=== PATIENT | female | born 1950 | race Caucasian/White ===

== ENCOUNTER 2017-11-08 07:42 | Emergency (ER) | payer OTHER ==
--- OUTSIDE RECORDS SUMMARY | 2017-11-08 07:44 | XMS REPORT | Clinical Summary ---
:1950 Author Organization [facility] Address [address] [place] [address] Phone Support Name Relationship Address Phone Unavailable Unavailable [address] [facility] [place] [address] Unavailable Unavailable [address] [phone] [place], [facility] Team Providers Name Role Phone Unavailable Primary Care Provider Unavailable Allergies No Known Allergies Current Medications Prescription Sig. Disp. Refills Start Date End Date Status metoprolol (LOPRESSOR) Take 100 mg by Active 100 MG tablet mouth 2 (two) times daily. omeprazole (PRILOSEC) 20 Take 20 mg by mouth Active MG capsule daily. ALPRAZolam (XANAX) 0.25 Take 0.25 mg by Active MG tablet mouth 3 (three) times daily as needed for Anxiety. 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
[2017-11-08] MEDS ORDERED: KETOROLAC 30 MG/ML INJ ONE (08:12)
[2017-11-08 08:27] LABS: Absolute Lymphocytes (CBC) 4.1 K/uL (0.7-4.9); Absolute Monocytes 0.9 K/uL (0.1-1.3); Absolute Neutrophil 5.7 K/uL (1.8-8.0); Basophils % 0.2 % (0-1.3); Eosinophils % 1.5 % (0-4.4); Hematocrit 34.9 % (36.0-45.0); Lymphocytes % 37.8 % (15.3-44.8); MCH 26.4 pg (27.0-35.0); MPV 7.6 fL (7.6-11.3); Monocytes % 8.1 % (3.3-12.3); RBC Red Blood Cell Count 4.42 M/uL (3.86-4.86)
[2017-11-08 08:38] LABS: Bicarbonate 28 mEq/L (21-31); Glucose Level 105 mg/dL (65-120); Potassium 3.7 mEq/L (3.6-5.0); Sodium Level 140 mEq/L (135-145)
[2017-11-08 08:44] LABS: ALT/SGPT 10 IU/L (10-60); AST/SGOT 17 IU/L (10-42); Albumin 3.4 g/dL (3.2-5.5); Alkaline Phosphatase 85 IU/L (42-121); BUN Blood Urea Nitrogen 25 mg/dL (6-20); Bilirubin Direct < 0.1 mg/dL (0-0.2); Bilirubin Total 0.2 mg/dL (0.3-1.2); Lipase 29 U/L (22-51); Protein, Total 6.7 g/dL (6.0-8.3)
--- NOTE | 2017-11-08 08:50 | RAD REPORT ---
EXAM DESCRIPTION: CT - Abdomen Pelvis Wo Contrast - 11/08/2017 8:24 am CLINICAL HISTORY: Abdominal pain. Left flank pain. COMPARISON: 11/02/2017 TECHNIQUE: CT imaging of the abdomen and pelvis was performed without contrast. Solid organ, bowel a nd vascular assessment is limited due to lack of IV and oral contrast. All CT scans are performed using dose optimization technique as appropriate and may include automated exposure control or mA/KV adjustment according to patient size. FINDINGS: The lower lung yao are clear.Cholecystectomy clips. The liver, spleen, pancreas, adrenal glands are within normal limits for a limited non-contrast exami nation.Bilateral nephrolithiasis is present. No hydronephrosis. No bowel obstruction, free air, free fluid or abscess. Sigmoid diverticulosis coli is present without diverticulitis. The appendix is not identified as a discrete structure, however, no secondary findin gs of appendicitis are identified. The osseous structures are within normal limits. IMPRESSION: Bilateral nephrolithiasis without hydronephrosis. Sigmoid diverticulosis coli without diverticulitis. A limited non-contrast examination was performed as detailed.
[2017-11-08 10:43] LABS: Urine Blood NEGATIVE (NEG); Urine Glucose NEGATIVE (NEG); Urine Protein NEGATIVE (NEG); Urine Specific Gravity 1.025 (1.005-1.030); Urine pH 5.5 (5.0-7.0)
[2017-11-08 10:59] LABS: Urine Bacteria <20 /HPF (<20); Urine Culture Reflex Order NOT NEEDED; Urine Mucus 1+ /HPF (NONE SEEN); Urine RBC <5 /HPF (NONE SEEN)
--- NOTE | 2017-11-08 11:09 | ER ---
Nurse's Notes [facility] Name: Lilian Garland Age: 67 yrs Sex: Female : 1950 Arrival Date: 11/08/2017 Time: 07:54 Bed 7 Private MD: Diagnosis: Left Flank Pain Presentation: 11/08 07:55 Presenting complaint: Patient states: history of kidney stones. Pt reports L flank pain ss x 3 days, that has gotten worse this morning. Pt reports that symptoms are similar to last kidney stone. Transition of care: patient was not received from another setting of care. Onset of symptoms was November 05, 2017. Care prior to arrival: None. Medication(s) given: zofran 4 mg, Fentanyl 100 mcg IV initiated. 20 GA, in the right antecubital area. 07:55 Method Of Arrival: EMS: [facility] ss 07:55 Acuity: JI 3 ss Historical: - Allergies: 07:57 No Known Allergies; ss - PMHx: 07:57 Anxiety; Depression; Hypertension; neuropathy; ss - PSHx: 07:57 Cholecystectomy; heel spur R; ss - Immunization history:: Adult Immunizations up to date. - Social history:: Smoking status: Patient/guardian denies using tobacco. - Family history:: not pertinent. - Hospitalizations: : No recent hospitalization is reported. Screenin:00 Abuse screen: Denies threats or abuse. Denies injuries from another. Nutritional hb screening: No deficits noted. Tuberculosis screening: No symptoms or risk factors identified. Fall Risk None identified. Assessment: 08:00 General: Appears in no apparent distress. uncomfortable, Behavior is calm, cooperative. hb Pain: Pain currently is 8 out of 10 on a pain scale. Neuro: Level of Consciousness is awake, alert, obeys commands, Oriented to person, place, time, situation. Cardiovascular: Capillary refill < 3 seconds Patient's skin is warm and dry. Respiratory: Airway is patent Trachea midline Respiratory effort is even, unlabored, Respiratory pattern is regular, symmetrical, Breath sounds are clear bilaterally. GI: No signs and/or symptoms were reported involving the gastrointestinal system. : Reports pain in left flank(s). EENT: No signs and/or symptoms were reported regarding the EENT system. Derm: No signs and/or symptoms reported regarding the dermatologic system. Skin is intact, is healthy with good turgor, Skin is pink, warm \T\ dry. Musculoskeletal: No signs and/or symptoms reported regarding the musculoskeletal system. 09:00 Reassessment: Patient appears in no apparent distress at this time. Patient and/or hb family updated on plan of care and expected duration. Pain level reassessed. Patient is alert, oriented x 3, equal unlabored respirations, skin warm/dry/pink. 10:00 Reassessment: Patient appears in no apparent distress at this time. No changes from previously documented assessment. Patient and/or family updated on plan of care and expected duration. Pain level reassessed. Patient is alert, oriented x 3, equal unlabored respirations, skin warm/dry/pink. 10:22 Reassessment: pt ambulated to bathroom with steady gait. Urine specimen provided. hb Assisted back to bed, call light within reach. 11:15 Reassessment: Patient appears in no apparent distress at this time. Patient and/or hb family updated on plan of care and expected duration. Pain level reassessed. Patient is alert, oriented x 3, equal unlabored respirations, skin warm/dry/pink. Vital Signs: 07:57 BP 149 / 79; Pulse 85; Resp 15; Temp 98.3(O); Pulse Ox 97% on R/A; Height 5 ft. 3 in. ss (160.02 cm); Pain 8/10; 08:33 BP 127 / 67; Pulse 90; Resp 18; Pulse Ox 97% ; sv 09:33 BP 117 / 76; Pulse 82; Resp 15; Pulse Ox 100% ; hb 10:30 BP 122 / 74; Pulse 78; Resp 16; Pulse Ox 100% on R/A; hb ED Course: 07:54 Patient arrived in ED. ss 07:55 Tomas Schuster MD is Attending Physician. wa 07:56 Triage completed. ss 07:57 Arm band placed on right wrist. ss 08:00 Patient has correct armband on for positive identification. Placed in gown. Bed in low hb position. Call light in reach. Side rails up X 1. 08:00 Maintain EMS IV. Dressing intact. Good blood return noted. Site clean \T\ dry. Gauge \T\ hb site: 20G RIGHT AC. 08:15 Kathleen Thompson RN is Primary Nurse. hb 08:24 CT Abd/Pelvis - Without Cont In Process Unspecified. EDMS 09:55 EKG done, by sterilisation technician. reviewed by Tomas Schuster MD. tc 10:51 Urine Dipstick--Ancillary (enter results) Sent. sv 11:23 No provider procedures requiring assistance completed. IV discontinued, intact, hb bleeding controlled, No redness/swelling at site. Pressure dressing applied. Administered Medications: 08:13 Drug: TORadol 30 mg Route: IVP; Site: right antecubital; hb 09:00 Follow up: Response: No adverse reaction; Pain is decreased hb Outcome: 11:09 Discharge ordered by . wa 11:23 Discharged to home ambulatory, with family. hb 11:23 Condition: stable 11:23 Discharge instructions given to patient, Instructed on discharge instructions, follow up and referral plans. medication usage, Demonstrated understanding of instructions, follow-up care, medications, Prescriptions given X 1. 11:25 Patient left the ED. Signatures: Dispatcher [employer] EDNJ Helena Sahu RN Gabriela Cagle RN RN Abida Chadwick, director public policy EKG Ttc Kathleen Thompson RN RN hb Appiah, William, MD MD wa
--- NOTE | 2017-11-08 11:09 | EDPHYS ---
Physician Documentation [facility] Name: Lilian Garland Age: 67 yrs Sex: Female : 1950 Arrival Date: 11/08/2017 Time: 07:54 Bed 7 Private MD: ED Physician Tomas Schuster HPI: 11/08 08:17 This 67 yrs old Female presents to ER via EMS with complaints of Flank Pain. wa 08:17 The patient complains of pain in the left flank. The pain does not radiate. Onset: The wa symptoms/episode began/occurred 3 day(s) ago, and became worse this morning. Modifying factors: The symptoms are alleviated by nothing. the symptoms are aggravated by movement, palpation/percussion. Associated signs and symptoms: Pertinent positives: nausea, Pertinent negatives: dizziness, dysuria, fever, vomiting. Severity of pain: At its worst the pain was severe in the emergency department the pain has improved markedly. The patient has experienced similar episodes in the past, several times. The patient has not recently seen a physician. given pain meds via IV by EMS in route to ED. Historical: - Allergies: 07:57 No Known Allergies; ss - PMHx: 07:57 Anxiety; Depression; Hypertension; neuropathy; ss - PSHx: 07:57 Cholecystectomy; heel spur R; ss - Immunization history:: Adult Immunizations up to date. - Social history:: Smoking status: Patient/guardian denies using tobacco. - Family history:: not pertinent. - Hospitalizations: : No recent hospitalization is reported. ROS: 08:19 Constitutional: Negative for fever, chills, and weight loss, Eyes: Negative for injury, wa pain, redness, and discharge, ENT: Negative for injury, pain, and discharge, Neck: Negative for injury, pain, and swelling, Cardiovascular: Negative for chest pain, palpitations, and edema, Respiratory: Negative for shortness of breath, cough, wheezing, and pleuritic chest pain, Back: Negative for injury and pain, : Negative for injury, bleeding, discharge, and swelling, MS/Extremity: Negative for injury and deformity, Skin: Negative for injury, rash, and discoloration, Neuro: Negative for headache, weakness, numbness, tingling, and seizure. 08:19 Abdomen/GI: Positive for nausea, of the left flank, Negative for vomiting, diarrhea, constipation. 08:19 All other systems are negative. Exam: 08:19 Constitutional: This is a well developed, well nourished patient who is awake, alert, wa and in no acute distress. Head/Face: Normocephalic, atraumatic. Eyes: Pupils equal round and reactive to light, extra-ocular motions intact. Lids and lashes normal. Conjunctiva and sclera are non-icteric and not injected. Cornea within normal limits. Periorbital areas with no swelling, redness, or edema. ENT: Nares patent. No nasal discharge, no septal abnormalities noted. Tympanic membranes are normal and external auditory canals are clear. Oropharynx with no redness, swelling, or masses, exudates, or evidence of obstruction, uvula midline. Mucous membranes moist. Neck: Trachea midline, no thyromegaly or masses palpated, and no cervical lymphadenopathy. Supple, full range of motion without nuchal rigidity, or vertebral point tenderness. No Meningismus. Chest/axilla: Normal chest wall appearance and motion. Nontender with no deformity. No lesions are appreciated. Cardiovascular: Regular rate and rhythm with a normal S1 and S2. No gallops, murmurs, or rubs. Normal PMI, no JVD. No pulse deficits. Respiratory: Lungs have equal breath sounds bilaterally, clear to auscultation and percussion. No rales, rhonchi or wheezes noted. No increased work of breathing, no retractions or nasal flaring. Back: No spinal tenderness. No costovertebral tenderness. Full range of motion. Skin: Warm, dry with normal turgor. Normal color with no rashes, no lesions, and no evidence of cellulitis. MS/ Extremity: Pulses equal, no cyanosis. Neurovascular intact. Full, normal range of motion. Neuro: Awake and alert, GCS 15, oriented to person, place, time, and situation. Cranial nerves II-XII grossly intact. Motor strength 5/5 in all extremities. Sensory grossly intact. Cerebellar exam normal. Normal gait. Psych: Awake, alert, with orientation to person, place and time. Behavior, mood, and affect are within normal limits. 08:19 Abdomen/GI: Inspection: abdomen appears normal, Bowel sounds: normal, Palpation: mild abdominal tenderness, in the left flank. Vital Signs: 07:57 BP 149 / 79; Pulse 85; Resp 15; Temp 98.3(O); Pulse Ox 97% on R/A; Height 5 ft. 3 in. ss (160.02 cm); Pain 8/10; 08:33 BP 127 / 67; Pulse 90; Resp 18; Pulse Ox 97% ; sv 09:33 BP 117 / 76; Pulse 82; Resp 15; Pulse Ox 100% ; hb 10:30 BP 122 / 74; Pulse 78; Resp 16; Pulse Ox 100% on R/A; hb MDM: 07:56 Patient medically screened. 08:20 Differential diagnosis: nephrolithiasis, pyelonephritis, UTI, diverticulitis, ruptured wa AAA. 11:02 Data reviewed: vital signs, nurses notes, lab test result(s), radiologic studies. Test pa interpretation: by ED physician or midlevel provider: labs noted for renal insufficiency. UA negative. CT abd/pelvis: nephrolithiasis. no hydro or stones in ureter. Response to treatment: the patient's symptoms have markedly improved after treatment. ED course: pain improved. pt has enough tramadol at home. will d/c with zofran. has appt with her urologist pending in 2 days. advised to f/u. 11:14 Test interpretation: by ED physician or midlevel provider: EKG: HR 82. LAD. incomplete wa interventricular delay. 11/08 08:04 Order name: Basic Metabolic Panel; Complete Time: 10:00 11/08 08:04 Order name: CBC with Diff; Complete Time: 10:11/08 08:04 Order name: Creatinine for Radiology; Complete Time: 10:11/08 08:04 Order name: Hepatic Function; Complete Time: 10:11/08 08:04 Order name: Lipase; Complete Time: 10:11/08 08:04 Order name: Urine Microscopic Only 11/08 08:04 Order name: IV Saline Lock; Complete Time: 08:05 11/08 08:04 Order name: Labs collected and sent; Complete Time: 08:20 11/08 08:04 Order name: Urine Dipstick-Ancillary (obtain specimen); Complete Time: 08:20 11/08 08:04 Order name: CT Abd/Pelvis - Without Cont; Complete Time: 10:11/08 10:26 Order name: Urine Dipstick--Ancillary (enter results) mw2 11/08 10:26 Order name: Urine Dipstick-Ancillary EDMS Administered Medications: 08:13 Drug: TORadol 30 mg Route: IVP; Site: right antecubital; hb 09:00 Follow up: Response: No adverse reaction; Pain is decreased hb Disposition: 11/08/17 11:09 Discharged to Home. Impression: Left Flank Pain. - Condition is Stable. - Discharge Instructions: Abdominal Pain, Adult, [id number]. - Prescriptions for Zofran 4 mg Oral Tablet - take 1 tablet by ORAL route every 12 hours As needed; 20 tablet. - Medication Reconciliation Form, Thank You Letter, Antibiotic Education, Prescription Opioid Use form. - Follow up: Private Physician; Reason: Re-evaluation by your physician. - Problem is new. - Symptoms have improved. - Notes: The definitive reason for your pain is not certain at this time. you do not have a kidney stone traveling down the ureter to explain your pain however. take your tramadol as needed and follow up with your doctor per your appointment coming up as discussed. return here for any worsening concerns Signatures: Dispatcher [employer] EDMS Gabriela Lopez, YENY RN Kathleen Thompson RN RN [facility] HospitalTomsa MD MD pa
[2017-11-08 11:32] VITALS: TEMP 98.3
[2017-11-08 11:35] VITALS: O2SAT 100
[2017-11-08 11:36] VITALS: BP 122/74
--- NOTE | 2017-11-08 13:25 | EKG ---
Test Date: 2017-11-08 Test Time: 09:21:04 Emd Teacher: KEO MEASUREMENT RESULTS: Intervals: Rate: 82 MD: 158 QRSD: 94 QT: 380 QTc: 443 [place]: P: 71 MD: 158 QRS: -52 T: 99 INTERPRETIVE STATEMENTS: Normal sinus rhythm Left axis deviation cannot rule out Anterior infarct, age undetermined Abnormal ECG Compare to the ECG from 08-24-2017, Possible anterior infarct is now present Electronically Signed On 11-08-17 13:25:28 CDT by Josh Moser
== END 2017-11-08 11:25 | disposition home or self-care (01) ==
LOC: ER 07:42
DX: R10.9 Unspecified abdominal pain (principal); I10 Essential (primary) hypertension
CPT/HCPCS: 36415; 74176; 80048; 80076; 81003; 81015; 83690; 85025; 93005; 96374; 99284

== ENCOUNTER 2017-11-21 17:33 | Emergency (ER) | payer OTHER ==
--- OUTSIDE RECORDS SUMMARY | 2017-11-21 17:35 | XMS REPORT | Clinical Summary ---
:1950 Author Organization [facility] Address [address] [place] [address] Phone Support Name Relationship Address Phone Unavailable Unavailable [address] [facility] [place] [address] Unavailable Unavailable [address] [phone] [place], [facility] [place] Team Providers Name Role Phone Unavailable Primary [...] Not on file Results Not on fileafter 11/20/2016
[2017-11-21] MEDS ORDERED: MORPHINE 4 MG/ML SYR ONE (18:22)
[2017-11-21] MEDS ORDERED: ONDANSETRON 4 MG/2 ML VIAL ONE (18:23)
[2017-11-21 18:24] LABS: Absolute Lymphocytes (CBC) 2.9 K/uL (0.7-4.9); Absolute Monocytes 0.6 K/uL (0.1-1.3); Absolute Neutrophil 4.5 K/uL (1.8-8.0); Basophils % 0.5 % (0-1.3); Eosinophils % 1.9 % (0-4.4); Hematocrit 35.4 % (36.0-45.0); Lymphocytes % 34.8 % (15.3-44.8); MCH 26.3 pg (27.0-35.0); MCV 78.9 fL (80-100); MPV 7.8 fL (7.6-11.3); Monocytes % 7.4 % (3.3-12.3); RBC Red Blood Cell Count 4.49 M/uL (3.86-4.86)
--- NOTE | 2017-11-21 18:27 | RAD REPORT ---
EXAM DESCRIPTION: CT - Stone Protocol - 11/21/2017 6:20 pm CLINICAL HISTORY: Flank pain. COMPARISON: 11/08/2017, 11/02/2017 TECHNIQUE: Axial images were obtained without oral or IV contrast. Lack of contrast limits solid org an and vascular assessment. The [id number] spans the entirety of the system partially obscuring uppermost abdomen and lung bases. Coronal reformatted images were obtained and reviewed. All CT scans are performed using dose optimization technique as appropriate and may include automated exposure control or mA/KV adjustment according to patient size. FINDINGS: The lower lung yao are clear. Cholecystectomy clips. Imaged portions of the liver and spleen show no suspicious findings on non-contrast imaging. The panc reas and adrenal glands are normal. No pathologic lymphadenopathy in the abdomen or pelvis. Bilateral nephrolithiasis is again noted. The largest stone on the right is in the superior pole issa uring 3 mm. Largest stone on the left is in the anterior inferior pole measuring 3 mm. No hydronephro sis. No stone in either ureter seen. No bowel obstruction, free air, free fluid or abscess. Small fat containing left inguinal hernia.Sigm oid diverticulosis coli without diverticulitis. No significant bony abnormality. IMPRESSION: Bilateral nephrolithiasis without hydronephrosis.
[2017-11-21 18:28] LABS: Potassium 4.1 mEq/L (3.6-5.0)
[2017-11-21 18:31] LABS: Urine Blood NEGATIVE (NEG); Urine Glucose NEGATIVE (NEG); Urine Protein NEGATIVE (NEG); Urine pH 5.5 (5.0-7.0)
[2017-11-21 18:34] LABS: Albumin 3.6 g/dL (3.2-5.5); Bilirubin Direct 0.1 mg/dL (0-0.2); Bilirubin Total 0.6 mg/dL (0.3-1.2); Protein, Total 6.8 g/dL (6.0-8.3)
[2017-11-21 19:09] LABS: Urine Bacteria <20 /HPF (<20); Urine Culture Reflex Order NOT NEEDED; Urine Mucus SLIGHT /HPF (NONE SEEN); Urine RBC <5 /HPF (NONE SEEN)
--- NOTE | 2017-11-21 19:33 | ER ---
Nurse's Notes [facility] Name: Lilian Garland Age: 67 yrs Sex: Female : 1950 Arrival Date: 11/21/2017 Time: 17:35 Bed 30 Private MD: Diagnosis: Abdominal and pelvic pain Presentation: 11/21 17:38 Presenting complaint: Patient states: the lower part of my stomach is really hurting tw2 and i cant urinate, i have a hx of kidney stone,and my lower back is hurting, started hurting this morning. Transition of care: patient was not received from another setting of care. Onset of symptoms was November 21, 2017. Initial Sepsis Screen: Does the patient meet any 2 criteria? No. Patient's initial sepsis screen is negative. Does the patient have a suspected source of infection? No. Patient's initial sepsis screen is negative. Care prior to arrival: None. 17:38 Method Of Arrival: Wheelchair tw2 17:38 Acuity: JI 3 tw2 Historical: - Home Meds: 17:40 gabapentin 600 mg Oral tab daily [Active]; metoprolol tartrate 100 mg Oral tab 1 tab tw2 once daily [Active]; omeprazole 40 mg Oral cpDR 1 cap once daily [Active]; tramadol 50 mg Oral tab 1 tab every 4 hours [Active]; - PMHx: 17:40 Kidney stones; Anxiety; Depression; Hypertension; neuropathy; tw2 - PSHx: 17:40 Cholecystectomy; heel spur R; tw2 - Immunization history:: Adult Immunizations up to date. - Social history:: Smoking status: Patient/guardian denies using tobacco. Screenin:52 Abuse screen: Denies threats or abuse. Nutritional screening: No deficits noted. tl3 Tuberculosis screening: No symptoms or risk factors identified. Fall Risk None identified. Assessment: 18:00 General: Appears uncomfortable, obese, well groomed, well developed, well nourished, tl3 Behavior is calm, cooperative, appropriate for age. Pain: Complains of pain in left lower quadrant. Neuro: Level of Consciousness is awake, alert, obeys commands, Oriented to person, place, time, situation, Appropriate for age. Cardiovascular: Heart tones S1 S2 Capillary refill < 3 seconds in bilateral fingers. Respiratory: Airway is patent Trachea midline Respiratory effort is even, unlabored, Respiratory pattern is regular, symmetrical, Breath sounds are clear bilaterally. GI: Bowel sounds present X 4 quads. Abd is soft X 4 quads Abdomen is tender to palpation in left lower quadrant. : Urine is clear. EENT: No signs and/or symptoms were reported regarding the EENT system. Derm: No signs and/or symptoms reported regarding the dermatologic system. Musculoskeletal: No signs and/or symptoms reported regarding the musculoskeletal system. 19:30 Reassessment: No changes from previously documented assessment. Patient and/or family tl3 updated on plan of care and expected duration. Pain level reassessed. Patient is alert, oriented x 3, equal unlabored respirations, skin warm/dry/pink. Vital Signs: 17:40 BP 149 / 76; Pulse 79; Resp 17; Temp 99.9(O); Pulse Ox 96% on R/A; Weight 95.25 kg; tw2 Height 5 ft. 3 in. (160.02 cm); Pain 10/10; 19:52 BP 138 / 67; Pulse 74; Resp 18; Pulse Ox 100% on R/A; tl3 17:40 Body Mass Index 37.20 (95.25 kg, 160.02 cm) tw2 ED Course: 17:35 Patient arrived in ED. tw3 17:39 Triage completed. tw2 17:39 Arm band placed on. tw2 17:45 Reji Verde PA is PHCP. jr8 17:45 Krunal Obrien MD is Attending Physician. jr8 17:51 Richelle Moore, YENY is Primary Nurse. tl3 18:00 Inserted saline lock: 20 gauge in right antecubital area, using aseptic technique. tl3 18:20 CT Stone Protocol In Process Unspecified. EDMS 18:38 Bladder scan completed. 85ml. mh5 19:52 Patient has correct armband on for positive identification. Bed in low position. Call tl3 light in reach. Side rails up X 1. Adult w/ patient. 19:52 No provider procedures requiring assistance completed. tl3 19:54 IV discontinued, intact, bleeding controlled, No redness/swelling at site. Pressure tl3 dressing applied. Administered Medications: 18:39 Drug: Zofran 4 mg Route: IVP; Infused Over: 3 mins; Site: right antecubital; tl3 19:52 Follow up: Response: No adverse reaction tl3 18:40 Drug: morphine 4 mg Route: IVP; Infused Over: 5 mins; Site: right antecubital; tl3 19:52 Follow up: Response: No adverse reaction; Pain is decreased tl3 Outcome: 19:33 Discharge ordered by MD. zepeda 19:54 Discharged to home ambulatory. tl3 19:54 Condition: stable 19:54 Discharge instructions given to patient, Instructed on discharge instructions, follow up and referral plans. medication usage, Demonstrated understanding of instructions, follow-up care, medications, Prescriptions given X 1. 19:55 Patient left the ED. tl3 Signatures: Dispatcher [employer] EDMS Reji Verde PA PA jr8 Vilma Dash RN RN tw2 Maia Zayas Shelby Raya tw3 Richelle Moore, YENY RN tl3
--- NOTE | 2017-11-21 19:34 | EDPHYS ---
Physician Documentation [facility] Name: Lilian Garland Age: 67 yrs Sex: Female : 1950 Arrival Date: 11/21/2017 Time: 17:35 Bed 30 Private MD: ED Physician Krunal Obrien HPI: 11/21 18:15 This 67 yrs old Female presents to ER via Wheelchair with complaints of jr8 Abdominal Pain, Back Pain, Urinary Problem. 18:15 The patient presents with abdominal pain in the left lower quadrant. Onset: The jr8 symptoms/episode began/occurred acutely, today. The symptoms radiate to left back, the left flank. Associated signs and symptoms: none. The symptoms are described as shooting. Modifying factors: The symptoms are alleviated by nothing, the symptoms are aggravated by nothing. Severity of pain: At its worst the pain was moderate in the emergency department the pain is unchanged. It is unknown whether or not the patient has had similar symptoms in the past. The patient has not recently seen a physician. Historical: - Home Meds: 17:40 gabapentin 600 mg Oral tab daily [Active]; metoprolol tartrate 100 mg Oral tab 1 tab tw2 once daily [Active]; omeprazole 40 mg Oral cpDR 1 cap once daily [Active]; tramadol 50 mg Oral tab 1 tab every 4 hours [Active]; - PMHx: 17:40 Kidney stones; Anxiety; Depression; Hypertension; neuropathy; tw2 - PSHx: 17:40 Cholecystectomy; heel spur R; tw2 - Immunization history:: Adult Immunizations up to date. - Social history:: Smoking status: Patient/guardian denies using tobacco. ROS: 18:15 Eyes: Negative for injury, pain, redness, and discharge, ENT: Negative for injury, jr8 pain, and discharge, Neck: Negative for injury, pain, and swelling, Cardiovascular: Negative for chest pain, palpitations, and edema, Respiratory: Negative for shortness of breath, cough, wheezing, and pleuritic chest pain, MS/Extremity: Negative for injury and deformity, Skin: Negative for injury, rash, and discoloration, Neuro: Negative for headache, weakness, numbness, tingling, and seizure. 18:15 Abdomen/GI: Positive for abdominal pain, Negative for nausea, vomiting, and diarrhea, abdominal distension, anorexia, dysphagia, hematemesis, black/tarry stool, rectal pain, rectal bleeding, bowel incontinence, flatulence. 18:15 Back: Positive for flank pain, on the left. 18:15 : Positive for urinary symptoms, small amounts. Exam: 18:15 Cardiovascular: Regular rate and rhythm with a normal S1 and S2. No gallops, murmurs, jr8 or rubs. Normal PMI, no JVD. No pulse deficits. Respiratory: Lungs have equal breath sounds bilaterally, clear to auscultation and percussion. No rales, rhonchi or wheezes noted. No increased work of breathing, no retractions or nasal flaring. Skin: Warm, dry with normal turgor. Normal color with no rashes, no lesions, and no evidence of cellulitis. MS/ Extremity: Pulses equal, no cyanosis. Neurovascular intact. Full, normal range of motion. Neuro: Awake and alert, GCS 15, oriented to person, place, time, and situation. Cranial nerves II-XII grossly intact. Motor strength 5/5 in all extremities. Sensory grossly intact. Cerebellar exam normal. Normal gait. 18:15 Abdomen/GI: Inspection: obese Bowel sounds: active, all quadrants, Palpation: soft, in all quadrants, moderate abdominal tenderness, in the left lower quadrant, mass, is not appreciated, rebound tenderness, is not appreciated, voluntary guarding, is elicited in the left lower quadrant, involuntary guarding, is not appreciated, no appreciated organomegaly, Indicators: McBurney's point is not tender, Lockhart's sign is negative, Rovsing's sign is negative, Liver: no appreciated palpable abnormalities, tenderness, is not appreciated. 18:15 Back: pain, is absent, ROM is normal, normal spinal alignment noted, CVA tenderness, that is mild, is noted on the left, vertebral tenderness, is not appreciated. Vital Signs: 17:40 BP 149 / 76; Pulse 79; Resp 17; Temp 99.9(O); Pulse Ox 96% on R/A; Weight 95.25 kg; tw2 Height 5 ft. 3 in. (160.02 cm); Pain 10/10; 19:52 BP 138 / 67; Pulse 74; Resp 18; Pulse Ox 100% on R/A; tl3 17:40 Body Mass Index 37.20 (95.25 kg, 160.02 cm) tw2 MDM: 17:45 Patient medically screened. [facility] 19:31 Data reviewed: vital signs, nurses notes, lab test result(s), radiologic studies, CT [facility] scan, and as a result, I will discharge patient. Data interpreted: Pulse oximetry: on room air is 96 %. Interpretation: normal. Counseling: I had a detailed discussion with the patient and/or guardian regarding: the historical points, exam findings, and any diagnostic results supporting the discharge/admit diagnosis, lab results, radiology results, the need for outpatient follow up, a family practitioner, a manager strategic marketing, to return to the emergency department if symptoms worsen or persist or if there are any questions or concerns that arise at home. Response to treatment: the patient's symptoms have markedly improved after treatment. Special discussion: Based on the patient's Hx, exam, and Dx evaluation, there is no indication for emergent surgery or inpatient Tx. It is understood by the patient/guardian that if the Sx's persist or worsen they need to return immediately for re-evaluation. 11/21 17:46 Order name: Basic Metabolic Panel [facility] 11/21 17:46 Order name: CBC with Diff; Complete Time: 18:31 [facility] 11/21 17:46 Order name: Creatinine for Radiology; Complete Time: 18:31 [facility] 11/21 17:46 Order name: Hepatic Function [facility] 11/21 17:46 Order name: Lipase; Complete Time: 18:36 [facility] 11/21 17:46 Order name: Urine Microscopic Only; Complete Time: 19:13 [facility] 11/21 17:46 Order name: IV Saline Lock [facility] 11/21 17:46 Order name: Labs collected and sent [facility] 11/21 17:46 Order name: Basic Metabolic Panel; Complete Time: 18:36 [facility] 11/21 17:46 Order name: Liver (Hepatic) Function; Complete Time: 18:36 [facility] 11/21 18:03 Order name: CT Stone Protocol; Complete Time: 18:31 [facility] 11/21 18:22 Order name: Urine Dipstick--Ancillary (enter results); Complete Time: 18:32 [facility] 11/21 17:46 Order name: Urine Dipstick-Ancillary (obtain specimen) [facility] 11/21 18:03 Order name: Bladder Scanner [facility] Administered Medications: 18:39 Drug: Zofran 4 mg Route: IVP; Infused Over: 3 mins; Site: right antecubital; tl3 19:52 Follow up: Response: No adverse reaction tl3 18:40 Drug: morphine 4 mg Route: IVP; Infused Over: 5 mins; Site: right antecubital; tl3 19:52 Follow up: Response: No adverse reaction; Pain is decreased tl3 Disposition: 21:31 Co-signature as Attending Physician, Krunal Obrien MD. Disposition: 11/21/17 19:33 Discharged to Home. Impression: Abdominal and pelvic pain. - Condition is Stable. - Discharge Instructions: Abdominal Pain, Adult. - Prescriptions for Tramadol 50 mg Oral Tablet - take 1 tablet by ORAL route every 8 hours as needed; 12 tablet. - Medication Reconciliation Form, Thank You Letter, Antibiotic Education, Prescription Opioid Use form. - Follow up: Private Physician; When: 2 - 3 days; Reason: Recheck today's complaints, Continuance of care, Re-evaluation by your physician. - Problem is new. - Symptoms have improved. Signatures: Dispatcher [employer] EDMS Reji Verde PA PA jr8 Vilma Dash, RN RN tw2 Krunal Obrien MD MD Richelle Moore, RN RN tl3
[2017-11-21 20:06] VITALS: TEMP 99.9
[2017-11-21 20:07] VITALS: BP 138/67; O2SAT 100
== END 2017-11-21 19:55 | disposition home or self-care (01) ==
LOC: ER 17:33
DX: R10.2 Pelvic and perineal pain (principal); I10 Essential (primary) hypertension; F41.9 Anxiety disorder, unspecified; F32.9 Major depressive disorder, single episode, unspecified
CPT/HCPCS: 36415; 74176; 76377; 80048; 80076; 83690; 85025; J2405; 81003; 81015; 96374; 96375; 99284

== ENCOUNTER 2018-02-03 10:56 | Emergency (ER) | payer OTHER ==
--- OUTSIDE RECORDS SUMMARY | 2018-02-03 10:58 | XMS REPORT | Clinical Summary ---
:1950 Author Organization [facility] Address [address] [place] [address] Phone Support Name Relationship Address Phone Unavailable Unavailable [address] [facility] [address] Unavailable Unavailable [address] [phone] [place], [facility] Team Providers Name [...] Not on file Results Not on fileafter 02/02/2017
[2018-02-03 11:31] LABS: Urine Blood 2+ (NEG); Urine Glucose NEGATIVE (NEG); Urine Protein TRACE (NEG); Urine Specific Gravity >1.030 (1.005-1.030)
[2018-02-03 12:20] LABS: Absolute Monocytes 0.6 K/uL (0.1-1.3); Absolute Neutrophil 4.4 K/uL (1.8-8.0); Basophils % 0.6 % (0-1.3); Eosinophils % 6.2 % (0-4.4); Hematocrit 29.4 % (36.0-45.0); Lymphocytes % 26.1 % (15.3-44.8); MCH 27.9 pg (27.0-35.0); MCV 81.5 fL (80-100); Monocytes % 8.4 % (3.3-12.3); RBC Red Blood Cell Count 3.61 M/uL (3.86-4.86)
[2018-02-03] MEDS ORDERED: LORazepam 2 MG/ML VIAL ONE (12:46)
--- NOTE | 2018-02-03 14:02 | RAD REPORT ---
EXAM DESCRIPTION: CT - Abdomen Pelvis W Contrast - 02/03/2018 1:12 pm CLINICAL HISTORY: Abdominal pain. Bladder surgery January 24, 2018. COMPARISON: October 2017 TECHNIQUE: Computed axial tomography of the abdomen pelvis was obtained. 100 cc Isovue-300 was admin istered intravenously. Oral contrast was not requested which limits evaluation of bowel. All CT scans are performed using dose optimization technique as appropriate and may include automated exposure control or mA/KV adjustment according to patient size. FINDINGS: The liver has a diminished attenuation consistent with fatty infiltration. Spleen, pancreas and adrenals appear unremarkable Tiny nonobstructing bilateral renal calculi are present. . There is no evidence of diverticulitis. A small hiatal hernia is present Air is present within the anterior subcutaneous fat of the lower abdomen/pelvis near midline. Small a mount of ill-defined fluid is seen. The abdominal wall anterior muscular is mildly thickened. Mild st randing is present adjacent to the bladder fat. Air bubbles are present within the bladder. IMPRESSION: Air is present within the anterior subcutaneous fat of the lower abdomen/pelvis near mid line. Small amount of ill-defined fluid is seen. The abdominal wall anterior muscular is mildly thick ened. Mild stranding is present adjacent to the bladder fat. Air bubbles are present within the bladd er. All of these findings may be normal postoperative change a secondary to recent bladder surgery. Air w ithin the bladder could also be the result of the infection or less likely fistula with sigmoid colon . The air within the subcutaneous tissues of the abdomen and pelvis could be related to infection. If the patient's symptoms do not improve then a followup CT scan would be helpful for re-evaluation
--- NOTE | 2018-02-03 14:49 | ER ---
Nurse's Notes [facility] Name: Lilian Garland Age: 67 yrs Sex: Female : 1950 Arrival Date: 02/03/2018 Time: 10:59 Bed 7 Private MD: Diagnosis: Cystitis;Unspecified open wound of abdominal wall, periumbilic region without penetration into peritoneal cavity Presentation: 02/03 10:59 Presenting complaint: EMS states: pt was seen yesterday by ems for bleeding, at tw2 abdonimal site after she picked at the scab, today the wound has dehisced, lower left abdomen. Transition of care: patient was not received from another setting of care. Onset of symptoms was February 03, 2018. Risk Assessment: Do you want to hurt yourself or someone else? Patient reports no desire to harm self or others. Initial Sepsis Screen: Does the patient meet any 2 criteria? No. Patient's initial sepsis screen is negative. Does the patient have a suspected source of infection? No. Patient's initial sepsis screen is negative. Care prior to arrival: Medication(s) given: 100 mcg Fentanyl IV initiated. 20 GA, in the right antecubital area. 10:59 Method Of Arrival: EMS: [facility] tw2 10:59 Acuity: JI 3 tw2 Historical: - Allergies: 11:19 No Known Allergies; tw2 - Home Meds: 11:19 gabapentin 600 mg Oral tab daily [Active]; metoprolol tartrate 100 mg Oral tab 1 tab tw2 once daily [Active]; omeprazole 40 mg Oral cpDR 1 cap once daily [Active]; tramadol 50 mg Oral tab 1 tab every 4 hours [Active]; - PMHx: 11:19 Anxiety; Depression; Hypertension; Kidney stones; neuropathy; tw2 - PSHx: 11:19 Cholecystectomy; heel spur R; Hysterectomy; kidney stone removal; tw2 - Immunization history:: Adult Immunizations up to date. - Social history:: Smoking status: Patient/guardian denies using tobacco. - Ebola Screening: : Patient denies travel to an Ebola-affected area in the 21 days before illness onset. Screenin:16 Abuse screen: Denies threats or abuse. Nutritional screening: No deficits noted. tw2 Tuberculosis screening: No symptoms or risk factors identified. Fall Risk None identified. Assessment: 11:13 Reassessment: Dr. Keny Melendez last Monday did bladder sling surgery at [address] General: Appears in no apparent distress. obese, Behavior is calm, cooperative, appropriate for age. Pain: Complains of pain in left lower quadrant. Neuro: Level of Consciousness is awake, alert, obeys commands, Oriented to person, place, time, situation. Cardiovascular: Denies chest pain, shortness of breath, Heart tones S1 S2 Capillary refill < 3 seconds Patient's skin is warm and dry. Respiratory: Airway is patent Respiratory effort is even, unlabored, Respiratory pattern is regular, symmetrical, Breath sounds are clear bilaterally. GI: GI: area of distal surgical site on lower left abdomin that appears dehisced, no bleeding noted. : No signs and/or symptoms were reported regarding the genitourinary system. Reports needing to urinate upon arrival, bed dewey offered, but able to give sample a this time. EENT: No signs and/or symptoms were reported regarding the EENT system. Derm: No signs and/or symptoms reported regarding the dermatologic system. Musculoskeletal: Range of motion: intact in all extremities. 12:02 Reassessment: Patient appears in no apparent distress at this time. No changes from [facility] previously documented assessment. Patient and/or family updated on plan of care and expected duration. Pain level reassessed. Patient is alert, oriented x 3, equal unlabored respirations, skin warm/dry/pink. 12:21 Reassessment: pt calling out loud "nurse, get this bracelet off its too tight, i cant tw2 stand it", one finger width of length between pts skin and bracelet, pt states "i dont care i cant stand it" bracelet cut off per pts and pt is holding id band at this time. 12:37 General: Appears distressed, Behavior is anxious, crying, restless, Patient states she ae1 is "nervous", wishes to go home and is asking for her daughter "Laura". Provider notified, daughter Laura was brought back to exam room from lobby .New orders received.. 13:01 Reassessment: Patient assisted onto bedpan to urinate before CT. Will notify CT when ae1 patient is done using bedpan. 13:49 Reassessment: Patient appears in no apparent distress at this time. No changes from tw2 previously documented assessment. Patient and/or family updated on plan of care and expected duration. Pain level reassessed. Patient is alert, oriented x 3, equal unlabored respirations, skin warm/dry/pink. 14:30 Reassessment: Patient appears in no apparent distress at this time. No changes from tw2 previously documented assessment. Patient and/or family updated on plan of care and expected duration. Pain level reassessed. Patient is alert, oriented x 3, equal unlabored respirations, skin warm/dry/pink. 15:27 Reassessment: Patient appears in no apparent distress at this time. No changes from tw2 previously documented assessment. Patient and/or family updated on plan of care and expected duration. Pain level reassessed. Patient is alert, oriented x 3, equal unlabored respirations, skin warm/dry/pink. Vital Signs: 11:09 BP 139 / 74; Pulse 69; Resp 17; Temp 98.5(O); Pulse Ox 96% on R/A; Weight 97.98 kg (R); tw2 Height 5 ft. 3 in. (160.02 cm); 12:02 BP 161 / 54; Pulse 74; Resp 17; Pulse Ox 95% on R/A; tw2 12:46 BP 177 / 64; Pulse 68; Resp 19; Pulse Ox 97% on R/A; ae1 13:48 BP 150 / 61; Pulse 69; Resp 17; Pulse Ox 97% on R/A; tw2 14:58 BP 143 / 59; Pulse 63; Resp 17; Pulse Ox 98% on R/A; tw2 11:09 Body Mass Index 38.26 (97.98 kg, 160.02 cm) tw2 ED Course: 10:59 Patient arrived in ED. tw2 11:00 Saad Lizarraga MD is Attending Physician. kdr 11:09 Triage completed. tw2 11:12 Arm band placed on. tw2 11:12 Bed in low position. Call light in reach. Side rails up X2. Adult w/ patient. Pulse ox tw2 on. NIBP on. Warm blanket given. 11:19 Vilma Dash, RN is Primary Nurse. tw2 13:08 CT completed. Patient moved to CT via stretcher. Patient moved back from CT. cw1 13:12 CT Abd/Pelvis - W/Contrast In Process Unspecified. EDWV 14:06 Attending Physician role handed off by Saad Lizarraga MD [facility] 14:06 Siddhartha Barajas MD is Attending Physician. [facility] 14:58 Awaiting: iv abx watch prior to discharge, daughter at bedside. tw2 15:27 No provider procedures requiring assistance completed. IV discontinued, intact, tw2 bleeding controlled, No redness/swelling at site. Pressure dressing applied. Dressings: ABD pad X 1; left lower quadrant 4X4s X 3; left lower quadrant wet to dry dressing, daughter instructed as to the dressing and s/s of infection. Administered Medications: 12:52 Drug: Ativan 0.5 mg Route: IVP; Site: right antecubital; ae1 13:15 Follow up: Response: No adverse reaction 14:50 Drug: Rocephin - (cefTRIAXone) 1 grams Route: IVPB; Infused Over: 10 mins; Site: right tw2 antecubital; 14:57 Follow up: Response: No adverse reaction; IV Status: Completed infusion tw2 15:26 Follow up: Response: No adverse reaction; IV Status: Completed infusion tw2 14:50 Drug: Cipro 500 mg Route: PO; tw2 15:26 Follow up: Response: No adverse reaction tw2 Outcome: 14:48 Discharge ordered by . [facility] 15:28 Discharged to home via wheelchair, with family. tw2 15:28 Condition: stable 15:28 Discharge instructions given to patient, family, Instructed on discharge instructions, follow up and referral plans. no drinking with medication, no driving heavy equipment, medication usage, wound care, Demonstrated understanding of instructions, follow-up care, medications, wound care, Prescriptions given X 2. 15:28 Patient left the ED. tw2 Signatures: Dispatcher [employer] [facility] Siddhartha Barajas MD MD cha Rittger, Kevin, MD MD kdr Williams, Irene, RN RN iw Woodley, Crystal cw1 Vilma Dash RN RN tw2 Sree Marquez, YENY RN ae1 Corrections: (The following items were deleted from the chart) 11:16 11:13 GI: area of distal surgical site that appears dehisced, no bleeding noted tw2 tw2
--- NOTE | 2018-02-03 14:49 | EDPHYS ---
Physician Documentation [facility] Name: Lilian Garland Age: 67 yrs Sex: Female : 1950 Arrival Date: 02/03/2018 Time: 10:59 Bed 7 Private MD: JASPREET Physician Siddhartha Barajas HPI: 02/03 11:54 This 67 yrs old Female presents to ER via EMS with complaints of Post kdr Surgical Pain - wound drainage. 11:54 The patient presents with The patient had an operation on her bladder last month and kdr the sutures were taken out last week. Yesterday, she was on the toilet and had a hard time defecating and when she bore down, there was an explosion of fluid from her abdominal wound and it was not opened up and with mild drainage. Onset: The symptoms/episode began/occurred yesterday. The symptoms do not radiate. Associated signs and symptoms: none. The symptoms are described as achy, burning, vague. Modifying factors: The symptoms are alleviated by nothing, the symptoms are aggravated by coughing, home stress, movement, Bearing down. Severity of pain: At its worst the pain was mild in the emergency department the pain is unchanged. The patient has not experienced similar symptoms in the past. The patient has been recently seen by a physician: Last week for staple removal. Historical: - Allergies: 11:19 No Known Allergies; tw2 - Home Meds: 11:19 gabapentin 600 mg Oral tab daily [Active]; metoprolol tartrate 100 mg Oral tab 1 tab tw2 once daily [Active]; omeprazole 40 mg Oral cpDR 1 cap once daily [Active]; tramadol 50 mg Oral tab 1 tab every 4 hours [Active]; - PMHx: 11:19 Anxiety; Depression; Hypertension; Kidney stones; neuropathy; tw2 - PSHx: 11:19 Cholecystectomy; heel spur R; Hysterectomy; kidney stone removal; tw2 - Immunization history:: Adult Immunizations up to date. - Social history:: Smoking status: Patient/guardian denies using tobacco. - Ebola Screening: : Patient denies travel to an Ebola-affected area in the 21 days before illness onset. ROS: 12:23 Constitutional: Negative for fever, chills, and weight loss, Eyes: Negative for injury, kdr pain, redness, and discharge, ENT: Negative for injury, pain, and discharge, Neck: Negative for injury, pain, and swelling, Cardiovascular: Negative for chest pain, palpitations, and edema, Respiratory: Negative for shortness of breath, cough, wheezing, and pleuritic chest pain, Back: Negative for injury and pain, : Negative for injury, bleeding, discharge, and swelling, MS/Extremity: Negative for injury and deformity, Skin: Negative for injury, rash, and discoloration, Neuro: Negative for headache, weakness, numbness, tingling, and seizure activity. Psych: Negative for depression, anxiety, suicide ideation, homicidal ideation, and hallucinations, Allergy/Immunology: Negative for hives, rash, and allergies, Endocrine: Negative for neck swelling, polydipsia, polyuria, polyphagia, and marked weight changes, Hematologic/Lymphatic: Negative for swollen nodes, abnormal bleeding, and unusual bruising. 12:23 Abdomen/GI: Positive for abdominal pain, Negative for nausea, vomiting, and diarrhea, abdominal cramps, abdominal distension, anorexia, dysphagia, hematemesis, black/tarry stool, rectal pain, rectal bleeding, bowel incontinence. Exam: 12:23 Constitutional: This is a well developed, well nourished patient who is awake, alert, kdr and in no acute distress. Head/Face: Normocephalic, atraumatic. Eyes: Pupils equal round and reactive to light, extra-ocular motions intact. Lids and lashes normal. Conjunctiva and sclera are non-icteric and not injected. Cornea within normal limits. Periorbital areas with no swelling, redness, or edema. Neck: Trachea midline, no thyromegaly or masses palpated, and no cervical lymphadenopathy. Supple, full range of motion without nuchal rigidity, or vertebral point tenderness. No Meningismus. Chest/axilla: Normal chest wall appearance and motion. Nontender with no deformity. No lesions are appreciated. Cardiovascular: Regular rate and rhythm with a normal S1 and S2. No gallops, murmurs, or rubs. Normal PMI, no JVD. No pulse deficits. Respiratory: Lungs have equal breath sounds bilaterally, clear to auscultation and percussion. No rales, rhonchi or wheezes noted. No increased work of breathing, no retractions or nasal flaring. Back: No spinal tenderness. No costovertebral tenderness. Full range of motion. Skin: Warm, dry with normal turgor. Normal color with no rashes, no lesions, and no evidence of cellulitis. MS/ Extremity: Pulses equal, no cyanosis. Neurovascular intact. Full, normal range of motion. Neuro: Awake and alert, GCS 15, oriented to person, place, time, and situation. Cranial nerves II-XII grossly intact. Motor strength 5/5 in all extremities. Sensory grossly intact. Cerebellar exam normal. Normal gait. Psych: Awake, alert, with orientation to person, place and time. Behavior, mood, and affect are within normal limits. 12:23 Abdomen/GI: Inspection: scar(s), There is an approximate 3 cm dehiscence of the ventral infraumbilical incision that otherwise to be healing well with the steri-strips in place. There is minimal drainage from the open wound, Bowel sounds: active, Palpation: soft, mild abdominal tenderness, Sarai-incisional. Vital Signs: 11:09 BP 139 / 74; Pulse 69; Resp 17; Temp 98.5(O); Pulse Ox 96% on R/A; Weight 97.98 kg (R); tw2 Height 5 ft. 3 in. (160.02 cm); 12:02 BP 161 / 54; Pulse 74; Resp 17; Pulse Ox 95% on R/A; tw2 12:46 BP 177 / 64; Pulse 68; Resp 19; Pulse Ox 97% on R/A; ae1 13:48 BP 150 / 61; Pulse 69; Resp 17; Pulse Ox 97% on R/A; tw2 14:58 BP 143 / 59; Pulse 63; Resp 17; Pulse Ox 98% on R/A; tw2 11:09 Body Mass Index 38.26 (97.98 kg, 160.02 cm) tw2 MDM: 14:06 Patient medically screened. sushant 02/03 11:18 Order name: Urine Dipstick--Ancillary (enter results); Complete Time: 11:53 ag 02/03 11:53 Order name: CBC with Diff; Complete Time: 12:32 kdr 02/03 11:53 Order name: CT Abd/Pelvis - W/Contrast; Complete Time: 14:06 kdr 02/03 11:53 Order name: Chem 7; Complete Time: 12:32 kdr 02/03 11:50 Order name: Wound Care; Complete Time: 11:50 tw2 02/03 14:39 Order name: Urine Dipstick-Ancillary (obtain specimen); Complete Time: 14:48 [facility] Administered Medications: 12:52 Drug: Ativan 0.5 mg Route: IVP; Site: right antecubital; ae1 13:15 Follow up: Response: No adverse reaction iw 14:50 Drug: Rocephin - (cefTRIAXone) 1 grams Route: IVPB; Infused Over: 10 mins; Site: right tw2 antecubital; 14:57 Follow up: Response: No adverse reaction; IV Status: Completed infusion tw2 15:26 Follow up: Response: No adverse reaction; IV Status: Completed infusion tw2 14:50 Drug: Cipro 500 mg Route: PO; tw2 15:26 Follow up: Response: No adverse reaction tw2 Disposition: 02/03/18 14:48 Discharged to Home. Impression: Cystitis, Unspecified open wound of abdominal wall, periumbilic region without penetration into peritoneal cavity. - Condition is Stable. - Discharge Instructions: Dysuria, Wound Dehiscence, Wound Care, Iklf-ie-Lctk, Wound Packing. - Prescriptions for Tylenol- Codeine #3 300-30 mg Oral Tablet - take 2 tablet by ORAL route every 6 hours As needed; 30 tablet. Cipro 500 mg Oral Tablet - take 1 tablet by ORAL route every 12 hours for 7 days; 14 tablet. - Medication Reconciliation Form, Thank You Letter, Antibiotic Education, Prescription Opioid Use form. - Follow up: Private Physician; When: 2 - 3 days; Reason: Recheck today's complaints, Continuance of care, Re-evaluation by your physician. - Problem is new. - Symptoms have improved. Signatures: Dispatcher [employer] EDSiddhartha Cunningham MD MD cha Rittger, Kevin, MD MD kdr Wise, Tara, RN RN tw2 Sree Marquez RN RN ae1 Yamini Melendez RN iw Corrections: (The following items were deleted from the chart) 15:28 14:48 02/03/2018 14:48 Discharged to Home. Impression: Cystitis; Unspecified open wound tw2 of abdominal wall, periumbilic region without penetration into peritoneal cavity. Condition is Stable. Forms are Medication Reconciliation Form, Thank You Letter, Antibiotic Education, Prescription Opioid Use. Follow up: Private Physician; When: 2 - 3 days; Reason: Recheck today's complaints, Continuance of care, Re-evaluation by your physician. Problem is new. Symptoms have improved. sushant
[2018-02-03] MEDS ORDERED: CIPROFLOXACIN HCL 500 MG TAB ONE (14:53)
[2018-02-03] MEDS ORDERED: CEFTRIAXONE/SWI 1gm 1 GM/10 ML SYR ONE (14:53)
[2018-02-03 15:36] VITALS: TEMP 98.5
[2018-02-03 15:41] VITALS: BP 143/59; O2SAT 98
== END 2018-02-03 15:28 | disposition home or self-care (01) ==
LOC: ER 10:56
DX: T81.31XA Disruption of external operation (surgical) wound, not elsewhere classified, initial encounter (principal); N30.90 Cystitis, unspecified without hematuria; I10 Essential (primary) hypertension; F41.9 Anxiety disorder, unspecified; F32.9 Major depressive disorder, single episode, unspecified
CPT/HCPCS: 36415; 74177; 80048; 81003; 85025; 96374; 96375; 99284; J0696; Q9967

== ENCOUNTER 2018-05-09 13:52 | Emergency (ER) | payer OTHER ==
--- OUTSIDE RECORDS SUMMARY | 2018-05-09 13:54 | XMS REPORT | Clinical Summary ---
:1950 Author Organization [facility] Address [address] [place] [address] Phone Support Name Relationship Address Phone Unavailable Unavailable [address] [facility] [place] [address] Unavailable Unavailable [address] [phone] [facility], [facility], [place] Team Providers Name Role Phone Unavailable Primary [...] Not on file Results Not on fileafter 05/08/2017
--- NOTE | 2018-05-09 15:18 | ER ---
Nurse's Notes [facility] Name: Lilian Garland Age: 67 yrs Sex: Female : 1950 Arrival Date: 05/09/2018 Time: 13:54 Bed Treatment Private MD: Forest Perez Diagnosis: Gout Presentation: 05/09 14:00 Presenting complaint: Patient states: Pain to right shoulder and to your left foot for aj1 the past 3 months. States that she had labs done at this hospital yesterday. She saw her PHCP a month ago and he started her on allopurinol, but she has not gotten any relief from it. Denies fever. Denies recent injury to her right shoulder or left foot. Transition of care: patient was not received from another setting of care. Onset of symptoms was February 2018. Risk Assessment: Do you want to hurt yourself or someone else? Patient reports no desire to harm self or others. Initial Sepsis Screen: Does the patient meet any 2 criteria? HR > 90 bpm. No. Patient's initial sepsis screen is negative. Does the patient have a suspected source of infection? No. Patient's initial sepsis screen is negative. Care prior to arrival: None. 14:00 Method Of Arrival: Ambulatory aj1 14:00 Acuity: JI 4 aj1 Triage Assessment: 14:03 General: Appears in no apparent distress. uncomfortable, Behavior is calm, cooperative, aj1 appropriate for age. Pain: Complains of pain in left foot, anterior aspect of right shoulder and posterior aspect of right shoulder Pain currently is 10 out of 10 on a pain scale. Neuro: Level of Consciousness is awake, alert, obeys commands. Cardiovascular: Patient's skin is warm and dry. Respiratory: Airway is patent Respiratory effort is even, unlabored, Respiratory pattern is regular, symmetrical. Historical: - Allergies: 14:03 No Known Allergies; aj1 - Home Meds: 14:03 gabapentin 600 mg Oral tab daily [Active]; metoprolol tartrate 100 mg Oral tab 1 tab aj1 once daily [Active]; omeprazole 40 mg Oral cpDR 1 cap once daily [Active]; tramadol 50 mg Oral tab 1 tab every 4 hours [Active]; Allopurinol Oral [Active]; - PMHx: 14:03 Anxiety; Depression; Hypertension; Kidney stones; neuropathy; Gout; aj1 - Immunization history:: Flu vaccine is up to date. - Social history:: Smoking status: Patient/guardian denies using tobacco. - Ebola Screening: : Patient denies travel to an Ebola-affected area in the 21 days before illness onset. Screenin:46 Abuse screen: Denies threats or abuse. Denies injuries from another. Nutritional hj screening: No deficits noted. Tuberculosis screening: No symptoms or risk factors identified. Fall Risk None identified. Assessment: 14:30 General: Appears in no apparent distress. uncomfortable, Behavior is calm, cooperative, hj appropriate for age. Pain: Complains of pain in right arm and left foot and posterior aspect of right shoulder and anterior aspect of right shoulder. Neuro: Level of Consciousness is awake, alert, obeys commands, Oriented to person, place, time, situation, Appropriate for age. Cardiovascular: Capillary refill < 3 seconds Patient's skin is warm and dry. Respiratory: Airway is patent Respiratory effort is even, unlabored, Respiratory pattern is regular, symmetrical. GI: No signs and/or symptoms were reported involving the gastrointestinal system. : No signs and/or symptoms were reported regarding the genitourinary system. EENT: No signs and/or symptoms were reported regarding the EENT system. Derm: No signs and/or symptoms reported regarding the dermatologic system. Musculoskeletal: Reports pain in right arm and left foot and posterior aspect of right shoulder and anterior aspect of right shoulder. Vital Signs: 14:03 BP 141 / 78; Pulse 95; Resp 18; Temp 97.3(TE); Pulse Ox 97% on R/A; Height 5 ft. 3 in. aj1 (160.02 cm); Pain 10/10; 15:43 BP 138 / 74; Pulse 90; Resp 18; Pulse Ox 99% on R/A; hj ED Course: 13:54 Patient arrived in ED. as 13:54 Forest Perez MD is Private Physician. as 14:02 Triage completed. aj1 14:03 Arm band placed on Patient placed in waiting room, Patient notified of wait time. aj1 14:30 Horacio Mejia, YENY is Primary Nurse. hj 14:47 Patient has correct armband on for positive identification. Bed in low position. Call hj light in reach. Side rails up X 1. 15:02 Rae Finn FNP-C is PHCP. snw 15:03 Krunal Obrien MD is Attending Physician. snw 15:17 Forest Perez MD is Referral Physician. snw 15:43 No provider procedures requiring assistance completed. Patient did not have IV access hj during this emergency room visit. Administered Medications: 15:20 Drug: TORadol 60 mg Route: IM; Site: left deltoid; 15:30 Follow up: Response: No adverse reaction; Pain is decreased Outcome: 15:17 Discharge ordered by MD. snw 15:43 Discharged to home via wheelchair. hj 15:43 Condition: stable 15:43 Discharge instructions given to patient, Instructed on discharge instructions, follow up and referral plans. medication usage, Demonstrated understanding of instructions, follow-up care, medications, Prescriptions given X 1. 15:44 Patient left the ED. Signatures: Shagufta Saavedra, RN RN aj1 Rae Finn FNP-C FNP-Ananya Knight Henry, RN RN
--- NOTE | 2018-05-09 15:18 | EDPHYS ---
Physician Documentation [facility] Name: Lilian Garland Age: 67 yrs Sex: Female : 1950 Arrival Date: 05/09/2018 Time: 13:54 Bed Treatment Private MD: Forest Perez ED Physician Krunal Obrien HPI: 05/09 15:36 This 67 yrs old Female presents to ER via Ambulatory with complaints of Gout. snw 15:36 Associated signs and symptoms: The patient has no apparent associated signs or snw symptoms. The patient has experienced similar episodes in the past. The patient has been recently seen by a physician: the patient's primary care provider, Dr. Perez. Historical: - Allergies: 14:03 No Known Allergies; aj1 - Home Meds: 14:03 gabapentin 600 mg Oral tab daily [Active]; metoprolol tartrate 100 mg Oral tab 1 tab aj1 once daily [Active]; omeprazole 40 mg Oral cpDR 1 cap once daily [Active]; tramadol 50 mg Oral tab 1 tab every 4 hours [Active]; Allopurinol Oral [Active]; - PMHx: 14:03 Anxiety; Depression; Hypertension; Kidney stones; neuropathy; Gout; aj1 - Immunization history:: Flu vaccine is up to date. - Social history:: Smoking status: Patient/guardian denies using tobacco. - Ebola Screening: : Patient denies travel to an Ebola-affected area in the 21 days before illness onset. ROS: 15:35 Constitutional: Negative for fever, chills, and weight loss, Eyes: Negative for injury, snw pain, redness, and discharge, ENT: Negative for injury, pain, and discharge, Neck: Negative for injury, pain, and swelling, Cardiovascular: Negative for chest pain, palpitations, and edema, Respiratory: Negative for shortness of breath, cough, wheezing, and pleuritic chest pain, Abdomen/GI: Negative for abdominal pain, nausea, vomiting, diarrhea, and constipation, Back: Negative for injury and pain, : Negative for injury, bleeding, discharge, and swelling, Neuro: Negative for headache, weakness, numbness, tingling, and seizure. 15:35 MS/extremity: Positive for pain, swelling, tenderness, of the posterior aspect of right shoulder and anterior aspect of right shoulder. 15:35 Skin: Positive for swelling, of the right foot, left foot and right elbow. Exam: 15:33 Constitutional: This is a well developed, well nourished patient who is awake, alert, snw and in no acute distress. Head/Face: Normocephalic, atraumatic. Eyes: Pupils equal round and reactive to light, extra-ocular motions intact. Lids and lashes normal. Conjunctiva and sclera are non-icteric and not injected. Cornea within normal limits. Periorbital areas with no swelling, redness, or edema. ENT: Nares patent. No nasal discharge, no septal abnormalities noted. Tympanic membranes are normal and external auditory canals are clear. Oropharynx with no redness, swelling, or masses, exudates, or evidence of obstruction, uvula midline. Mucous membranes moist. Neck: Trachea midline, no thyromegaly or masses palpated, and no cervical lymphadenopathy. Supple, full range of motion without nuchal rigidity, or vertebral point tenderness. No Meningismus. Chest/axilla: Normal chest wall appearance and motion. Nontender with no deformity. No lesions are appreciated. Cardiovascular: Regular rate and rhythm with a normal S1 and S2. No gallops, murmurs, or rubs. Normal PMI, no JVD. No pulse deficits. Respiratory: Lungs have equal breath sounds bilaterally, clear to auscultation and percussion. No rales, rhonchi or wheezes noted. No increased work of breathing, no retractions or nasal flaring. Abdomen/GI: Soft, non-tender, with normal bowel sounds. No distension or tympany. No guarding or rebound. No evidence of tenderness throughout. Back: No spinal tenderness. No costovertebral tenderness. Full range of motion. Neuro: Awake and alert, GCS 15, oriented to person, place, time, and situation. Cranial nerves II-XII grossly intact. Motor strength 5/5 in all extremities. Sensory grossly intact. Cerebellar exam normal. Normal gait. Psych: Awake, alert, with orientation to person, place and time. Behavior, mood, and affect are within normal limits. 15:33 Musculoskeletal/extremity: ROM: limited passive range of motion due to pain, Circulation is intact in all extremities. Compartment Syndrome exam of affected extremity: is normal. no tingling, no weak pulses. Vital Signs: 14:03 BP 141 / 78; Pulse 95; Resp 18; Temp 97.3(TE); Pulse Ox 97% on R/A; Height 5 ft. 3 in. aj1 (160.02 cm); Pain 05/09; 15:43 BP 138 / 74; Pulse 90; Resp 18; Pulse Ox 99% on R/A; hj MDM: 15:03 Patient medically screened. snw 15:19 Data reviewed: vital signs, nurses notes. Data interpreted: Pulse oximetry: on room air snw is 97 %. Interpretation: normal. Counseling: I had a detailed discussion with the patient and/or guardian regarding: the historical points, exam findings, and any diagnostic results supporting the discharge/admit diagnosis, the presence of at least one elevated blood pressure reading (>120/80) during this emergency department visit, the need for outpatient follow up, to return to the emergency department if symptoms worsen or persist or if there are any questions or concerns that arise at home. Special discussion: I have referred the patient to see his PCP for further evaluation of high blood pressure. I discussed in detail with the patient the higher chance of wound infection based on his presenting history. Based on the history and exam findings, there is no indication for further emergent testing or inpatient evaluation. I discussed with the patient/guardian the need to see the primary care provider for further evaluation of the symptoms. 15:50 Data reviewed: old medical records, Creatinine yesterday 1.00. snw 05/09 15:20 Order name: Post-op shoe; Complete Time: 15:31 snw 05/09 15:20 Order name: Deyvi wrap-joint; Complete Time: 15:31 snw Administered Medications: 15:20 Drug: TORadol 60 mg Route: IM; Site: left deltoid; 15:30 Follow up: Response: No adverse reaction; Pain is decreased Disposition: 18:22 Co-signature as Attending Physician, Krunal Obrien MD. Disposition: 05/09/18 15:17 Discharged to Home. Impression: Gout. - Condition is Stable. - Discharge Instructions: Cast or Splint Care, Adult, Gout, Low-Purine Diet. - Prescriptions for VOLTAREN GEL 1% - Apply to affected area 1 application by TOPICAL route 3 times per day; 100 gram. - Medication Reconciliation Form, Thank You Letter, Antibiotic Education, Prescription Opioid Use form. - Follow up: Forest Perez MD; When: 2 - 3 days; Reason: Recheck today's complaints, Continuance of care, Re-evaluation by your physician. Follow up: Emergency Department; When: As needed; Reason: Worsening of condition. Signatures: Shagufta Saavedra RN RN aj1 Rae Finn, [employer] SUPERINTENDENT-C [employer] SUPERINTENDENT-Csnw Horacio Mejia RN RN hj Krunal Obrien MD MD Corrections: (The following items were deleted from the chart) 15:44 15:17 05/09/2018 15:17 Discharged to Home. Impression: Gout. Condition is Stable. Forms hj are Medication Reconciliation Form, Thank You Letter, Antibiotic Education, Prescription Opioid Use. Follow up: Forest Perez; When: 2 - 3 days; Reason: Recheck today's complaints, Continuance of care, Re-evaluation by your physician. Follow up: Emergency Department; When: As needed; Reason: Worsening of condition. snw
[2018-05-09] MEDS ORDERED: KETOROLAC 30 MG/ML INJ ONE (15:28)
[2018-05-09 15:57] VITALS: TEMP 97.3
[2018-05-09 15:58] VITALS: BP 138/74; O2SAT 99
== END 2018-05-09 15:44 | disposition home or self-care (01) ==
LOC: ER 13:52
DX: M10.9 Gout, unspecified (principal); I10 Essential (primary) hypertension; F41.9 Anxiety disorder, unspecified; F32.9 Major depressive disorder, single episode, unspecified
CPT/HCPCS: 96372; 99283

== ENCOUNTER 2018-09-20 07:43 | Emergency (ER) | payer OTHER ==
--- OUTSIDE RECORDS SUMMARY | 2018-09-20 07:45 | XMS REPORT | Clinical Summary ---
:1950 Author Organization [facility] Address [address] [place] [address] Care Team Providers Name Role Phone Estefany Barnes MD Primary Care Provider Allergies No Known Allergies Medications Medication Sig Dispensed Refills Start Date End Date Status metoprolol (LOPRESSOR) Take 100 mg by 0 Active 100 MG tablet mouth 2 (two) times daily. omeprazole (PRILOSEC) Take 20 mg by 0 Active 20 MG capsule mouth daily. ALPRAZolam (XANAX) Take 0.25 mg by 0 Active 0.25 MG tablet mouth 3 (three) times daily as needed for Anxiety. 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 Last Filed Vital Signs Not on file Plan of Treatment Not on file Results Not on fileafter 09/19/2017 Insurance Payer Benefit Plan / Group Subscriber ID Type Phone Address [employer] xxxxxxxx Maps Contracted (Home) [place] [address] Advance Directives For more information, please contact:[place] [phone] [place], [place] [phone] Code Status Date Activated Date Inactivated Comments Full Code 04/06/2016 5:42 AM 04/07/2016 7:21 AM This code status was determined by: Patient
[2018-09-20] MEDS ORDERED: ONDANSETRON 4 MG/2 ML VIAL ONE (08:21)
[2018-09-20] MEDS ORDERED: KETOROLAC 30 MG/ML INJ ONE (08:21)
[2018-09-20] MEDS ORDERED: NA CHLORIDE 0.9% 1,000 ML ONE ×2 (08:21→08:41)
--- NOTE | 2018-09-20 08:37 | RAD REPORT ---
EXAM DESCRIPTION: CT - Stone Protocol - 09/20/2018 8:22 am CLINICAL HISTORY: Flank pain. right flank pain COMPARISON: Abdomen Pelvis W Contrast dated 02/03/2018; Stone Protocol dated 11/21/2017 TECHNIQUE: Axial images were obtained without oral or IV contrast. Lack of contrast limits solid org an and vascular assessment. The [id number] spans the entirety of the system partially obscuring uppermost abdomen and lung bases. Coronal reformatted images were obtained and reviewed. All CT scans are performed using dose optimization technique as appropriate and may include automated exposure control or mA/KV adjustment according to patient size. FINDINGS: The lower lung yao are clear. Cholecystectomy. Imaged portions of the liver and spleen show no suspicious findings on non-contrast imaging. The panc reas and adrenal glands are normal. No pathologic lymphadenopathy in the abdomen or pelvis. Punctate bilateral nephrolithiasis is present without hydronephrosis. No bowel obstruction, free air, free fluid or abscess. The appendix is not identified as a discrete s tructure, however, no secondary findings of appendicitis are identified. Colonic diverticulosis is se en without diverticulitis. No significant bony abnormality. Small bilateral fat containing inguinal hernias. IMPRESSION: Punctate bilateral nephrolithiasis without hydronephrosis. Sigmoid diverticulosis coli without diverticulitis.
[2018-09-20 08:46] LABS: Absolute Lymphocytes (CBC) 2.6 K/uL (0.7-4.9); Absolute Monocytes 0.6 K/uL (0.1-1.3); Absolute Neutrophil 3.4 K/uL (1.8-8.0); Basophils % 0.6 % (0-1.3); Eosinophils % 4.3 % (0-4.4); Hematocrit 33.6 % (36.0-45.0); Lymphocytes % 37.1 % (15.3-44.8); MPV 7.9 fL (7.6-11.3); Monocytes % 8.8 % (3.3-12.3); RBC Red Blood Cell Count 4.38 M/uL (3.86-4.86)
[2018-09-20 09:26] LABS: ALT/SGPT 15 U/L (12-78); AST/SGOT 27 U/L (15-37); Albumin 3.1 g/dL (3.4-5.0); Alkaline Phosphatase 109 U/L (45-117); BUN Blood Urea Nitrogen 15 mg/dL (7-18); Bicarbonate 25 mmol/L (21-32); Bilirubin Direct < 0.1 mg/dL (0-0.2); Bilirubin Total 0.3 mg/dL (0.2-1.0); Glucose Level 124 mg/dL (74-106); Lipase 226 U/L (73-393); Potassium 4.4 mmol/L (3.5-5.1); Protein, Total 7.3 g/dL (6.4-8.2); Sodium Level 140 mmol/L (136-145)
[2018-09-20 09:35] LABS: Urine Bacteria >50 /HPF (<20); Urine Culture Reflex Order NOT NEEDED; Urine RBC <5 /HPF (NONE SEEN)
--- NOTE | 2018-09-20 10:28 | EDPHYS ---
Physician Documentation [facility] Name: Lilian Garland Age: 68 yrs Sex: Female : 1950 Arrival Date: 09/20/2018 Time: 07:47 Bed 20 Private MD: Forest Perez ED Physician Sharan Peña HPI: 09/20 10:30 This 68 yrs old Female presents to ER via Ambulatory with complaints of ps1 Possible Kidney Stone. 10:30 patient states that she has right flank pain for 3 days. States that she has a history ps1 of renal stones in the past. Does not follow with urology. States that this episode feels like previous. No fever. Pain rated as moderate. No dysuria. . Historical: - Allergies: 08:03 No Known Allergies; iw - Home Meds: 08:03 Allopurinol Oral [Active]; gabapentin 600 mg Oral tab daily [Active]; metoprolol hj tartrate 100 mg Oral tab 1 tab once daily [Active]; omeprazole 40 mg Oral cpDR 1 cap once daily [Active]; tramadol 50 mg Oral tab 1 tab every 4 hours [Active]; - PMHx: 08:03 Anxiety; Depression; Gout; Hypertension; Kidney stones; neuropathy; iw - PSHx: 08:03 Hysterectomy; Bladder suspension; Cholecystectomy; iw - Immunization history:: Adult Immunizations up to date. - Social history:: Smoking status: Patient/guardian denies using tobacco. - Ebola Screening: : Patient negative for fever greater than or equal to 101.5 degrees Fahrenheit, and additional compatible Ebola Virus Disease symptoms Patient denies exposure to infectious person Patient denies travel to an Ebola-affected area in the 21 days before illness onset No symptoms or risks identified at this time. ROS: 10:30 Constitutional: Negative for fever, chills, and weight loss, Eyes: Negative for injury, ps1 pain, redness, and discharge, Neck: Negative for injury, pain, and swelling, Cardiovascular: Negative for chest pain, palpitations, and edema, Respiratory: Negative for shortness of breath, cough, wheezing, and pleuritic chest pain, Abdomen/GI: Negative for abdominal pain, nausea, vomiting, diarrhea, and constipation, MS/Extremity: Negative for injury and deformity, Skin: Negative for injury, rash, and discoloration. 10:30 : Positive for flank pain, urinary frequency. Exam: 10:30 Constitutional: This is a well developed, well nourished patient who is awake, alert, ps1 and in no acute distress. Head/Face: Normocephalic, atraumatic. Eyes: Pupils equal round and reactive to light, extra-ocular motions intact. Lids and lashes normal. Conjunctiva and sclera are non-icteric and not injected. Chest/axilla: Normal chest wall appearance and motion. Nontender with no deformity. No lesions are appreciated. Cardiovascular: Regular rate and rhythm. No gallops, murmurs, or rubs. Normal PMI, no JVD. No pulse deficits. Respiratory: Lungs have equal breath sounds bilaterally, clear to auscultation and percussion. No rales, rhonchi or wheezes noted. No increased work of breathing, no retractions or nasal flaring. Abdomen/GI: Soft, non-tender, with normal bowel sounds. No distension or tympany. No guarding or rebound. No evidence of tenderness throughout. Back: No spinal tenderness. No costovertebral tenderness. Full range of motion. Skin: Warm, dry with normal turgor. Normal color with no rashes, no lesions, and no evidence of cellulitis. Vital Signs: 08:04 BP 155 / 76; Pulse 83; Resp 16; Temp 98.2(O); Pulse Ox 98% on R/A; Weight 104.33 kg; iw Height 5 ft. 3 in. (160.02 cm); Pain 10/10; 09:30 BP 145 / 75; Pulse 89; Resp 18; Pulse Ox 100% on R/A; hj 10:30 BP 123 / 56; Pulse 71; Resp 18; Pulse Ox 100% on R/A; hj 08:04 Body Mass Index 40.74 (104.33 kg, 160.02 cm) iw MDM: 07:53 Patient medically screened. ps1 10:30 Data reviewed: vital signs, nurses notes, lab test result(s), radiologic studies, and ps1 as a result, I will discharge patient. Counseling: I had a detailed discussion with the patient and/or guardian regarding: the historical points, exam findings, and any diagnostic results supporting the discharge/admit diagnosis, lab results, radiology results. 09/20 07:56 Order name: Basic Metabolic Panel; Complete Time: 09:34 ps1 09/20 07:56 Order name: CBC with Diff; Complete Time: 08:47 ps1 09/20 07:56 Order name: Creatinine for Radiology; Complete Time: 09:34 ps1 09/20 07:56 Order name: Hepatic Function; Complete Time: 09:34 ps1 09/20 07:56 Order name: Lipase; Complete Time: 09:34 ps1 09/20 09:16 Order name: Urine Dipstick--Ancillary (enter results) 09/20 07:56 Order name: IV Saline Lock; Complete Time: 08:32 ps1 09/20 07:56 Order name: CT Stone Protocol; Complete Time: 08:38 ps1 09/20 09:18 Order name: Urine Microscopic Only; Complete Time: 10:02 09/20 09:18 Order name: Urine Culture 09/20 07:56 Order name: Labs collected and sent; Complete Time: 08:32 ps1 Administered Medications: 07:56 Drug: NS 0.9% 1000 ml Route: IV; Rate: 1 bolus; Site: left antecubital; hj 10:30 Follow up: IV Status: Completed infusion 07:56 Drug: TORadol 30 mg Route: IVP; Site: left antecubital; hj 10:18 Follow up: Response: No adverse reaction hj 07:56 Drug: Zofran 4 mg Route: IVP; Site: left antecubital; hj 10:18 Follow up: Response: No adverse reaction; Nausea is decreased hj 10:19 Drug: Rocephin - (cefTRIAXone) 1 grams Route: IVPB; Infused Over: 30 mins; Site: left hj antecubital; 10:30 Follow up: IV Status: Completed infusion Disposition: 09/20/18 10:27 Discharged to Home. Impression: Acute cystitis, Unspecified renal colic. - Condition is Stable. - Discharge Instructions: Renal Colic, Urinary Tract Infection, Adult. - Prescriptions for ketorolac 10 mg Oral tablet - take 1 tablet by ORAL route every 4-6 hours not to exceed 40mg in 24hrs for up to 5 days total use; 15 tablet. Keflex 500 mg Oral Capsule - take 1 capsule by ORAL route every 8 hours for 10 days; 30 capsule. Flomax 0.4 mg Oral Capsule, Sust. Release 24 hr - take 1 capsule by ORAL route once daily 1/2 hour following the same meal each day; 30 capsule. - Medication Reconciliation Form, Thank You Letter, Antibiotic Education, Prescription Opioid Use form. - Follow up: Forest Perez MD; When: As needed; Reason: Further diagnostic work-up, Continuance of care. Follow up: Emergency Department; When: As needed; Reason: Fever > 102 F, Worsening of condition. - Problem is new. - Symptoms have improved. Signatures: Dispatcher [employer] EDYamini Forman RN RN iw Horacio Mejia RN RN hj Singer, Phillip, MD MD ps1 Corrections: (The following items were deleted from the chart) 10:46 10:27 09/20/2018 10:27 Discharged to Home. Impression: Acute cystitis; Unspecified hj renal colic. Condition is Stable. Forms are Medication Reconciliation Form, Thank You Letter, Antibiotic Education, Prescription Opioid Use. Follow up: Forest Perez; When: As needed; Reason: Further diagnostic work-up, Continuance of care. Follow up: Emergency Department; When: As needed; Reason: Fever > 102 F, Worsening of condition. Problem is new. Symptoms have improved. ps1
--- NOTE | 2018-09-20 10:28 | ER ---
Nurse's Notes [facility] Name: Lilian Garland Age: 68 yrs Sex: Female : 1950 Arrival Date: 09/20/2018 Time: 07:47 Bed 20 Private MD: Forest Perez Diagnosis: Acute cystitis;Unspecified renal colic Presentation: 09/20 08:01 Presenting complaint: Patient states: hx of kidney stones, c/o right flank pain since iw last night, denies pain with urination or blood in urine, pain 10/10. Transition of care: patient was not received from another setting of care. Onset of symptoms was September 19, 2018. Risk Assessment: Do you want to hurt yourself or someone else? Patient reports no desire to harm self or others. Initial Sepsis Screen: Does the patient meet any 2 criteria? No. Patient's initial sepsis screen is negative. Does the patient have a suspected source of infection? No. Patient's initial sepsis screen is negative. Care prior to arrival: None. 08:01 Method Of Arrival: Ambulatory iw 08:01 Acuity: JI 3 iw Triage Assessment: 10:44 General: Behavior is calm, cooperative, appropriate for age. hj Historical: - Allergies: 08:03 No Known Allergies; iw - Home Meds: 08:03 Allopurinol Oral [Active]; gabapentin 600 mg Oral tab daily [Active]; metoprolol hj tartrate 100 mg Oral tab 1 tab once daily [Active]; omeprazole 40 mg Oral cpDR 1 cap once daily [Active]; tramadol 50 mg Oral tab 1 tab every 4 hours [Active]; - PMHx: 08:03 Anxiety; Depression; Gout; Hypertension; Kidney stones; neuropathy; iw - PSHx: 08:03 Hysterectomy; Bladder suspension; Cholecystectomy; iw - Immunization history:: Adult Immunizations up to date. - Social history:: Smoking status: Patient/guardian denies using tobacco. - Ebola Screening: : Patient negative for fever greater than or equal to 101.5 degrees Fahrenheit, and additional compatible Ebola Virus Disease symptoms Patient denies exposure to infectious person Patient denies travel to an Ebola-affected area in the 21 days before illness onset No symptoms or risks identified at this time. Screenin:45 Abuse screen: Denies threats or abuse. Denies injuries from another. Nutritional hj screening: No deficits noted. Tuberculosis screening: No symptoms or risk factors identified. Fall Risk None identified. Assessment: 08:20 GI: Abdomen is round non-distended, Bowel sounds present X 4 quads. Abd is soft and non pc1 tender Abdomen is tender to palpation in the right flank. 08:57 General: Appears. Pain: Complains of pain in abdomen Pain currently is 10 out of 10 on pc1 a pain scale. Pain began Last night. Vital Signs: 08:04 BP 155 / 76; Pulse 83; Resp 16; Temp 98.2(O); Pulse Ox 98% on R/A; Weight 104.33 kg; iw Height 5 ft. 3 in. (160.02 cm); Pain 10/10; 09:30 BP 145 / 75; Pulse 89; Resp 18; Pulse Ox 100% on R/A; hj 10:30 BP 123 / 56; Pulse 71; Resp 18; Pulse Ox 100% on R/A; hj 08:04 Body Mass Index 40.74 (104.33 kg, 160.02 cm) iw ED Course: 07:47 Patient arrived in ED. mr 07:47 Forest Perez MD is Private Physician. mr 07:51 Sharan Peña MD is Attending Physician. ps1 08:03 Triage completed. iw 08:04 Arm band placed on. iw 08:04 Patient has correct armband on for positive identification. Placed in gown. Bed in low hj position. Call light in reach. Side rails up X 1. 08:05 Yamini Melendez, RN is Primary Nurse. iw 08:21 CT Stone Protocol In Process Unspecified. EDMS 09:19 Urine Dipstick--Ancillary (enter results) Sent. pc1 10:26 Forest Perez MD is Referral Physician. ps1 10:44 No provider procedures requiring assistance completed. IV discontinued. hj Administered Medications: 07:56 Drug: NS 0.9% 1000 ml Route: IV; Rate: 1 bolus; Site: left antecubital; hj 10:30 Follow up: IV Status: Completed infusion hj 07:56 Drug: TORadol 30 mg Route: IVP; Site: left antecubital; hj 10:18 Follow up: Response: No adverse reaction hj 07:56 Drug: Zofran 4 mg Route: IVP; Site: left antecubital; hj 10:18 Follow up: Response: No adverse reaction; Nausea is decreased 10:19 Drug: Rocephin - (cefTRIAXone) 1 grams Route: IVPB; Infused Over: 30 mins; Site: left antecubital; 10:30 Follow up: IV Status: Completed infusion Outcome: 10:27 Discharge ordered by . ps1 10:45 Attestation : i agree with the assessment and docs by SN Shanelle. 10:45 Discharged to home ambulatory. 10:45 Condition: stable 10:45 Discharge instructions given to patient, Instructed on discharge instructions, follow up and referral plans. medication usage, Demonstrated understanding of instructions, follow-up care, medications, Prescriptions given X 3. 10:46 Patient left the ED. Addendum: 09/23/2018 09:15 Addendum: Culture Results: Positive urine culture. No further action required. Bacteria h b sensitive to prescribed antibiotic. Signatures: Dispatcher [employer] EDMS Govind Vale mr Yamini Melendez RN RN Horacio Mejia RN RN Kathleen Thompson RN RN hb Singer, Phillip, MD MD ps1 Cantu, Patrick pc1 Corrections: (The following items were deleted from the chart) 09/20 09:01 08:57 GI: Abdomen is round non-distended, Bowel sounds present X 4 quads. Abd is soft pc1 and non tender Abdomen is tender to palpation in the right flank pc1 09:01 08:57 General: Appears pc1 pc1
[2018-09-20] MEDS ORDERED: CEFTRIAXONE/SWI 1gm 1 GM/10 ML SYR ONE (10:29)
[2018-09-20 10:47] LABS: Urine Blood TRACE (NEG); Urine Glucose NEGATIVE (NEG); Urine Protein NEGATIVE (NEG)
[2018-09-20 11:25] VITALS: TEMP 98.2
[2018-09-20 11:26] VITALS: O2SAT 100
[2018-09-20 11:28] VITALS: BP 123/56
== END 2018-09-20 10:46 | disposition home or self-care (01) ==
LOC: ER 07:43
DX: N30.00 Acute cystitis without hematuria (principal); N23 Unspecified renal colic; I10 Essential (primary) hypertension; F41.9 Anxiety disorder, unspecified; F32.9 Major depressive disorder, single episode, unspecified; Z87.442 Personal history of urinary calculi
CPT/HCPCS: 36415; 74176; 76377; 80048; 80076; 83690; 85025; 87077; 87086; 87088; 87186; 96361; 96374; 96375; 99284; J0696; J2405; J7030 ×2; 81003; 81015

== ENCOUNTER 2019-01-11 14:40 | Emergency (ER) | payer OTHER ==
[2019-01-11] MEDS ORDERED: ONDANSETRON 4 MG/2 ML VIAL ONE (15:22)
[2019-01-11] MEDS ORDERED: KETOROLAC 30 MG/ML INJ ONE (15:22)
[2019-01-11] MEDS ORDERED: NA CHLORIDE 0.9% 500 ML ONE (15:22)
[2019-01-11 15:34] LABS: Absolute Lymphocytes (CBC) 2.9 K/uL (0.7-4.9); Absolute Monocytes 0.8 K/uL (0.1-1.3); Basophils % 0.7 % (0-1.3); Eosinophils % 1.8 % (0-4.4); Lymphocytes % 28.8 % (15.3-44.8); MPV 7.7 fL (7.6-11.3); Monocytes % 8.3 % (3.3-12.3); RBC Red Blood Cell Count 4.42 M/uL (3.86-4.86)
[2019-01-11 15:37] LABS: Urine Blood TRACE (NEG); Urine Glucose NEGATIVE (NEG); Urine Protein NEGATIVE (NEG); Urine pH 5.5 (5.0-7.0)
[2019-01-11 15:56] LABS: ALT/SGPT 17 U/L (12-78); AST/SGOT 21 U/L (15-37); Albumin 3.3 g/dL (3.4-5.0); Alkaline Phosphatase 106 U/L (45-117); BUN Blood Urea Nitrogen 12 mg/dL (7-18); Bicarbonate 25 mmol/L (21-32); Bilirubin Direct < 0.1 mg/dL (0-0.2); Bilirubin Total 0.2 mg/dL (0.2-1.0); Glucose Level 109 mg/dL (74-106); Lipase 146 U/L (73-393); Potassium 3.9 mmol/L (3.5-5.1); Protein, Total 7.5 g/dL (6.4-8.2); Sodium Level 141 mmol/L (136-145)
[2019-01-11 16:02] LABS: Urine Bacteria LOADED /HPF (<20); Urine Culture Reflex Order REFLEXED; Urine RBC <5 /HPF (NONE SEEN)
--- NOTE | 2019-01-11 16:16 | RAD REPORT ---
EXAM DESCRIPTION: CT - Stone Protocol - 01/11/2019 4:00 pm CLINICAL HISTORY: Abdominal pain. Right flank pain COMPARISON: August 2018 TECHNIQUE: Computed axial tomography of the abdomen pelvis was obtained without oral or IV contrast. Lack of IV and oral contrast limits evaluation of solid organs, bowel, and vessels. Coronal reformat elton images were obtained and reviewed. All CT scans are performed using dose optimization technique as appropriate and may include automated exposure control or mA/KV adjustment according to patient size. FINDINGS: Tiny bilateral renal calculi. No hydronephrosis An ureteral calculus is not noted. A bladd er calculus is not present. Cirrhotic liver. Cholecystectomy Spleen, pancreas and adrenals appear grossly normal Diverticula stem from the colon without evidence of diverticulitis. A hysterectomy. Left inguinal hernia contains fat IMPRESSION: Tiny bilateral nonobstructing renal calculi
[2019-01-11] MEDS ORDERED: CEFTRIAXONE/SWI 1gm 1 GM/10 ML SYR ONE (16:54)
--- OUTSIDE RECORDS SUMMARY | 2019-01-11 17:08 | XMS REPORT | Clinical Summary ---
:1950 Author Organization [facility] Address [address] [place] [address] Care Team Providers Name Role Phone Estefany [...] Not on file Results Not on fileafter 01/10/2018 Insurance Payer Benefit Plan / Group Subscriber ID Type Phone Address [employer] xxxxxxxx Maps Contracted (Home) [place] [address] Advance Directives For more information, please contact:[place] [id number] [place], [place] [phone] Code Status Date Activated Date Inactivated Comments Full Code 04/06/2016 5:42 AM 04/07/2016 7:21 AM This code status was determined by: Patient
--- NOTE | 2019-01-11 17:24 | ER ---
Nurse's Notes [facility] Name: Lilian Garland Age: 68 yrs Sex: Female : 1950 Arrival Date: 01/11/2019 Time: 14:44 Bed 28 Private MD: Forest Perez Diagnosis: Urinary tract infection, site not specified Presentation: 01/11 14:49 Presenting complaint: Patient states: LUQ pain that began last night. Pt denies aa5 nausea/vomiting/diarrhea. Denies burning with urination, denies urinary frequency. 14:49 Transition of care: patient was not received from another setting of care. Onset of aa5 symptoms was December 2018. Risk Assessment: Do you want to hurt yourself or someone else? Patient reports no desire to harm self or others. Initial Sepsis Screen: Does the patient meet any 2 criteria? No. Patient's initial sepsis screen is negative. Does the patient have a suspected source of infection? No. Patient's initial sepsis screen is negative. Care prior to arrival: None. 14:49 Acuity: JI 3 aa5 14:49 Method Of Arrival: Ambulatory aa5 Historical: - Allergies: 14:57 No Known Allergies; aa5 - Home Meds: 15:28 Allopurinol Oral [Active]; gabapentin 600 mg Oral tab daily [Active]; metoprolol mg2 tartrate 100 mg Oral tab 1 tab once daily [Active]; omeprazole 40 mg Oral cpDR 1 cap once daily [Active]; tramadol 50 mg Oral tab 1 tab every 4 hours [Active]; - PMHx: 14:57 Anxiety; Depression; Gout; Hypertension; Kidney stones; neuropathy; Chronic pain; GERD; aa5 - PSHx: 14:57 Hysterectomy; Bladder suspension; Cholecystectomy; Kidney stone removed; aa5 - Immunization history:: Adult Immunizations up to date, Flu vaccine is up to date. - Social history:: Smoking status: Patient/guardian denies using tobacco. - Ebola Screening: : No symptoms or risks identified at this time. Screenin:24 Abuse screen: Denies threats or abuse. Denies injuries from another. Nutritional mg2 screening: No deficits noted. Tuberculosis screening: No symptoms or risk factors identified. Fall Risk IV access (20 points). Assessment: 15:24 General: Appears in no apparent distress. comfortable, Behavior is calm, cooperative. mg2 Pain: Complains of pain in abdomen Pain does not radiate. Pain currently is 10 out of 10 on a pain scale. Quality of pain is described as sharp, shooting, Pain began gradually, 1 day ago. Is intermittent. Neuro: Level of Consciousness is awake, alert, obeys commands, Oriented to person, place, time, situation. Cardiovascular: Capillary refill < 3 seconds Patient's skin is warm and dry. Respiratory: Airway is patent Respiratory effort is even, unlabored, Respiratory pattern is regular, symmetrical. GI: Bowel sounds present X 4 quads. Abd is non tender X 4 quads Reports lower abdominal pain, upper abdominal pain, bloating, swelling or distention. : No signs and/or symptoms were reported regarding the genitourinary system. EENT: No signs and/or symptoms were reported regarding the EENT system. Derm: Skin is intact, is healthy with good turgor, Skin is pink, warm \T\ dry. normal. Musculoskeletal: Circulation, motion, and sensation intact. Capillary refill < 3 seconds. Vital Signs: 14:50 BP 144 / 80; Pulse 93; Resp 16 S; Temp 98.2(O); Pulse Ox 96% on R/A; Weight 106.59 kg aa5 (R); Height 5 ft. 3 in. (160.02 cm) (R); Pain 10/10; 15:58 BP 132 / 60; Pulse 82; Resp 18; Temp 98; Pulse Ox 97% on R/A; mg2 16:57 BP 133 / 69; Pulse 88; Resp 18; Temp 98; Pulse Ox 98% on R/A; Pain 5/10; mg2 14:50 Body Mass Index 41.63 (106.59 kg, 160.02 cm) aa5 ED Course: 14:44 Patient arrived in ED. mr 14:44 Forest Perez MD is Private Physician. mr 14:49 Arm band placed on Patient placed in an exam room, on a stretcher. aa5 14:53 Siddhartha Arzola PA is PHCP. cp 14:54 Saad Lizarraga MD is Attending Physician. cp 14:57 Triage completed. aa5 15:05 Manuelito Gutiérrez, YENY is Primary Nurse. mg2 15:24 No provider procedures requiring assistance completed. Inserted saline lock: 20 gauge mg2 in left antecubital area, using aseptic technique. Blood collected. 15:27 Patient has correct armband on for positive identification. mg2 15:58 CT completed. Patient tolerated procedure well. Patient moved to CT via stretcher. Patient moved back from CT. 16:02 CT Stone Protocol In Process Unspecified. EDMS 16:07 Urine Culture Sent. ca1 17:42 IV discontinued, intact, bleeding controlled, No redness/swelling at site. Pressure mg2 dressing applied. Administered Medications: 15:20 Drug: NS 0.9% 500 ml Route: IV; Rate: bolus; Site: left antecubital; mg2 16:47 Follow up: Response: No adverse reaction; IV Status: Completed infusion; IV Intake: mg2 500ml 15:20 Drug: TORadol 30 mg Route: IVP; Site: left antecubital; mg2 16:47 Follow up: Response: No adverse reaction; Marked relief of symptoms mg2 15:20 Drug: Zofran 4 mg Route: IVP; Site: left antecubital; mg2 16:46 Follow up: Response: No adverse reaction mg2 16:46 Drug: Rocephin 1 grams Route: IV; Rate: bolus; Site: left antecubital; mg2 Intake: 16:47 IV: 500ml; Total: 500ml. mg2 Outcome: 17:23 Discharge ordered by MD. cp 17:42 Discharged to home ambulatory, with family. mg2 17:42 Condition: stable 17:42 Discharge instructions given to patient, family, Instructed on discharge instructions, follow up and referral plans. medication usage, Demonstrated understanding of instructions, follow-up care, medications, Prescriptions given X 1. 17:42 Patient left the ED. mg2 Addendum: 01/14/2019 09:41 Addendum: Culture Results: Positive urine culture. Bacteria is resistant to, has s s intermediate sensitivity, or is not tested against prescribed antibiotics. Report given to JOVANNY for further evaluation and then to topstitcher lockstitch for follow up with patient. Prescription called-in to pharmacy of choice. Doxycycline 100 mg BID x 7 days #14 per PARMJIT Dickey. Signatures: Dispatcher [employer] EDAR Vale Faust Ervin Neelam Jorgensen RN RN aa5 Gabriela Lopez RN RN ss Siddhartha Arzola PA PA cp Gardose, Michele, RN RN mg2 Acob, Lynda, RN RN ca1 Corrections: (The following items were deleted from the chart) 01/11 15:27 15:24 GI: Bowel sounds present X 4 quads. Abd is non tender X 4 quads mg2 mg2
--- NOTE | 2019-01-11 17:24 | EDPHYS ---
Physician Documentation [facility] Name: Lilian Garland Age: 68 yrs Sex: Female : 1950 Arrival Date: 01/11/2019 Time: 14:44 Bed 28 Private MD: Forest Perez ED Physician Saad Lizarraga HPI: 01/11 15:10 This 68 yrs old Female presents to ER via Ambulatory with complaints of cp Abdominal Pain, Abdominal Swelling. 15:10 The patient presents with abdominal pain in the left upper quadrant, abdominal cp distention in the left upper quadrant. 15:10 Onset: The symptoms/episode began/occurred last night. cp 15:10 The symptoms do not radiate. Associated signs and symptoms: Pertinent negatives: cp nausea, vomiting, and diarrhea, blood in stools, chest pain. The symptoms are described as sharp. Historical: - Allergies: 14:57 No Known Allergies; aa5 - Home Meds: 15:28 Allopurinol Oral [Active]; gabapentin 600 mg Oral tab daily [Active]; metoprolol mg2 tartrate 100 mg Oral tab 1 tab once daily [Active]; omeprazole 40 mg Oral cpDR 1 cap once daily [Active]; tramadol 50 mg Oral tab 1 tab every 4 hours [Active]; - PMHx: 14:57 Anxiety; Depression; Gout; Hypertension; Kidney stones; neuropathy; Chronic pain; GERD; aa5 - PSHx: 14:57 Hysterectomy; Bladder suspension; Cholecystectomy; Kidney stone removed; aa5 - Immunization history:: Adult Immunizations up to date, Flu vaccine is up to date. - Social history:: Smoking status: Patient/guardian denies using tobacco. - Ebola Screening: : No symptoms or risks identified at this time. ROS: 15:15 Constitutional: Negative for body aches, chills, fever, poor PO intake. cp 15:15 Eyes: Negative for injury, pain, redness, and discharge. cp 15:15 Cardiovascular: Negative for chest pain, edema, palpitations. cp 15:15 ENT: Negative for drainage from ear(s), ear pain, sore throat, difficulty swallowing, cp difficulty handling secretions. 15:15 Respiratory: Negative for cough, shortness of breath, wheezing. 15:15 Abdomen/GI: Positive for abdominal pain, of the anterior aspect of left lateral abdomen and left upper quadrant, Negative for vomiting, diarrhea, constipation, anorexia, black/tarry stool, rectal bleeding. 15:15 Back: Negative for injury or acute deformity. 15:15 Skin: Negative for rash. 15:15 Neuro: Negative for altered mental status, headache, weakness. 15:15 All other systems are negative. Exam: 15:22 Head/Face: Normocephalic, atraumatic. cp 15:22 Constitutional: The patient appears in no acute distress, alert, awake, non-diaphoretic, non-toxic, well developed, well nourished, uncomfortable. 15:22 Eyes: Periorbital structures: appear normal, Conjunctiva: normal, no exudate, no injection, Sclera: no appreciated abnormality, Lids and lashes: appear normal, bilaterally. 15:22 ENT: External ear(s): are unremarkable, Nose: is normal, Mouth: Lips: moist, Oral mucosa: moist, Posterior pharynx: is normal, airway is patent. 15:22 Chest/axilla: Inspection: normal, Palpation: is normal, no crepitus, no tenderness. 15:22 Cardiovascular: Rate: normal, Rhythm: regular. 15:22 Respiratory: the patient does not display signs of respiratory distress, Respirations: normal, no use of accessory muscles, no retractions, no splinting, no tachypnea, labored breathing, is not present, Breath sounds: are clear throughout, no decreased breath sounds, no stridor, no wheezing. 15:22 Abdomen/GI: Inspection: abdomen appears normal, Bowel sounds: active, all quadrants, Palpation: soft, in all quadrants, moderate abdominal tenderness, in the anterior aspect of left lateral abdomen and left upper quadrant, rebound tenderness, is not appreciated, voluntary guarding, is elicited in the anterior aspect of left lateral abdomen and left upper quadrant. 15:22 Back: ROM is normal, CVA tenderness, is noted on the left. 15:22 Skin: no rash present. Vital Signs: 14:50 BP 144 / 80; Pulse 93; Resp 16 S; Temp 98.2(O); Pulse Ox 96% on R/A; Weight 106.59 kg aa5 (R); Height 5 ft. 3 in. (160.02 cm) (R); Pain 10/10; 15:58 BP 132 / 60; Pulse 82; Resp 18; Temp 98; Pulse Ox 97% on R/A; mg2 16:57 BP 133 / 69; Pulse 88; Resp 18; Temp 98; Pulse Ox 98% on R/A; Pain 5/10; mg2 14:50 Body Mass Index 41.63 (106.59 kg, 160.02 cm) aa5 MDM: 14:57 Patient medically screened. 17:22 Data reviewed: vital signs, nurses notes, lab test result(s), radiologic studies, CT cp scan. 17:22 Counseling: I had a detailed discussion with the patient and/or guardian regarding: the cp historical points, exam findings, and any diagnostic results supporting the discharge/admit diagnosis, lab results, radiology results, to return to the emergency department if symptoms worsen or persist or if there are any questions or concerns that arise at home. Special discussion: Based on the patient's Hx, exam, and Dx evaluation, there is no indication for emergent surgery or inpatient Tx. It is understood by the patient/guardian that if the Sx's persist or worsen they need to return immediately for re-evaluation. 01/11 15:02 Order name: Basic Metabolic Panel 01/11 15:02 Order name: CBC with Diff 01/11 15:02 Order name: Creatinine for Radiology 01/11 15:02 Order name: Hepatic Function; Complete Time: 16:35 01/11 15:02 Order name: Lipase; Complete Time: 16:35 01/11 15:02 Order name: Urine Microscopic Only; Complete Time: 16:35 01/11 15:05 Order name: Basic Metabolic Panel; Complete Time: 16:35 [facility] 01/11 15:05 Order name: CBC with Automated Diff; Complete Time: 16:35 [facility] 01/11 15:05 Order name: Creatinine (Radiology Only); Complete Time: 16:35 [facility] 01/11 15:31 Order name: Urine Dipstick--Ancillary (enter results); Complete Time: 16:35 pa 01/11 15:34 Order name: CT Stone Protocol; Complete Time: 16:35 01/11 16:05 Order name: Urine Culture [facility] 01/11 15:02 Order name: IV Saline Lock; Complete Time: 15:21 01/11 15:02 Order name: Labs collected and sent; Complete Time: 15:21 01/11 15:02 Order name: Urine Dipstick-Ancillary (obtain specimen); Complete Time: 15:24 cp 01/11 16:36 Order name: PO challenge; Complete Time: 16:44 cp Administered Medications: 15:20 Drug: NS 0.9% 500 ml Route: IV; Rate: bolus; Site: left antecubital; mg2 16:47 Follow up: Response: No adverse reaction; IV Status: Completed infusion; IV Intake: mg2 500ml 15:20 Drug: TORadol 30 mg Route: IVP; Site: left antecubital; mg2 16:47 Follow up: Response: No adverse reaction; Marked relief of symptoms mg2 15:20 Drug: Zofran 4 mg Route: IVP; Site: left antecubital; mg2 16:46 Follow up: Response: No adverse reaction mg2 16:46 Drug: Rocephin 1 grams Route: IV; Rate: bolus; Site: left antecubital; mg2 Disposition: 01/11/19 17:23 Discharged to Home. Impression: Urinary tract infection, site not specified. - Condition is Stable. - Discharge Instructions: Urinary Tract Infection, Adult. - Prescriptions for Augmentin 875- 125 mg Oral Tablet - take 1 tablet by ORAL route every 12 hours for 10 days; 20 tablet. - Medication Reconciliation Form, Thank You Letter, Antibiotic Education, Prescription Opioid Use form. - Follow up: Private Physician; When: 2 - 3 days; Reason: Worsening of condition. - Problem is new. - Symptoms have improved. Addendum: 01/14/2019 11:52 Co-signature as Attending Physician, Saad Lizarraga MD I agree with the assessment and k dr plan of care. Signatures: Dispatcher [employer] EDSaad Zabala MD MD [facility] Neelam Gentile RN RN aa5 Siddhartha Arzola PA PA cp Manuelito Gutiérrez, YENY RN mg2 Corrections: (The following items were deleted from the chart) 01/11 17:42 17:23 01/11/2019 17:23 Discharged to Home. Impression: Urinary tract infection, site mg2 not specified. Condition is Stable. Forms are Medication Reconciliation Form, Thank You Letter, Antibiotic Education, Prescription Opioid Use. Follow up: Private Physician; When: 2 - 3 days; Reason: Worsening of condition. Problem is new. Symptoms have improved. cp
[2019-01-11 17:59] VITALS: TEMP 98
[2019-01-11 18:00] VITALS: BP 133/69; O2SAT 98
== END 2019-01-11 17:42 | disposition home or self-care (01) ==
LOC: ER 14:40
DX: N39.0 Urinary tract infection, site not specified (principal); I10 Essential (primary) hypertension; F41.9 Anxiety disorder, unspecified; F32.9 Major depressive disorder, single episode, unspecified
CPT/HCPCS: 96361; 87088; 85025; 87086; 80048; 36415; 80076; 87077; 87186; 83690; 76377; 74176; 96375; 96374; 99284; J0696; J2405; 81003; 81015

== ENCOUNTER 2019-12-14 20:38 | Emergency (ER) | payer OTHER, SELFPAY ==
--- OUTSIDE RECORDS SUMMARY | 2019-12-14 20:40 | XMS REPORT | Clinical Summary ---
:1950 Author Organization [facility] Address [address] [place] [id number] Care Team Providers Name Role Phone Unavailable Primary Care Provider Unavailable Allergies No Known Allergies Medications Medication Sig Dispensed Refills Start Date End Date Status metoprolol succinate Take 100 mg by 0 Active (TOPROL XL) 100 mg mouth daily. extended release tablet sertraline (ZOLOFT) 25 Take 1 tablet by 30 tablet 0 04/07/2016 Active mg tabletIndications: mouth at bedtime MDD (major depressive nightly. disorder), recurrent episode, mild Active Problems Problem Noted Date MDD (major depressive disorder), recurrent episode, mi ld 04/07/2016 Visual hallucinations Social History Tobacco Use Types Packs/Day Years Used Date Never Smoker Alcohol Use Drinks/Week oz/Week Comments No Sex Assigned at Date Recorded Not on file Job Start Date Occupation Industry Not on file Not on file Not on file Travel History Travel Start Travel End No recent travel history available. Last Filed Vital Signs Not on file Plan of Treatment Health Maintenance Due Date Last Done Comments Breast Cancer Scrn (Yearly) 1990 Colorectal Cancer Scrn Annual (FIT/FOBT) Age 50 to 75 2000 IMM Pneumococcal Age 65 and Up 2015 IMM Influenza Seasonal Apr to September (>/= 19 yrs) 04/30/2020 Results Not on fileafter 12/13/2018 Insurance Payer Benefit Plan / Subscriber ID Effective Dates Phone Addre ss Type Group [employer] xxxxxxxx 2016-[place] [phone] [address] [place] [address]
--- OUTSIDE RECORDS SUMMARY | 2019-12-14 20:40 | XMS REPORT | Clinical Summary ---
:1950 Author Organization [facility] Address [address] [place] [address] Care Team Providers Name Role Phone Lala Barnes MD Primary Care Provider Allergies No [...] Not on file Results Not on fileafter 12/13/2018 Insurance Payer Benefit Plan / Group Subscriber ID Type Phone A ddress [employer] xxxxxxxx Maps Contracted Advance Directives For more information, please contact:[place] [id number] [place], [place] [phone] Code Status Date Activated Date Inactivated Comments Full Code 04/06/2016 5:42 AM 04/07/2016 7:21 AM This code status was determined by: Patient
--- NOTE | 2019-12-14 21:06 | ER ---
Nurse's Notes [facility] Name: Lilian Garland Age: 69 yrs Sex: Female : 1950 Arrival Date: 12/14/2019 Time: 20:41 Bed 25 Private MD: Diagnosis: Hordeolum externum left upper eyelid Presentation: 12/13 20:45 Chief complaint: Patient states: stye since 3 days ago. Coronavirus screen: Proceed ca1 with normal triage. Patient denies a cough. Patient denies shortness of breath or difficulty breathing. Patient denies measured and/or subjective temperature greater than 100.4F prior to today's visit. Patient denies travel on a cruise ship or to a country the [facility] currently lists as an affected area. Patient denies contact with known and/or suspected case of COVID-19. Ebola Screen: Patient negative for fever greater than or equal to 101.5 degrees Fahrenheit, and additional compatible Ebola Virus Disease symptoms Patient denies exposure to infectious person. Patient denies travel to an Ebola-affected area in the 21 days before illness onset. No symptoms or risks identified at this time. Initial Sepsis Screen: Does the patient meet any 2 criteria? No. Patient's initial sepsis screen is negative. Does the patient have a suspected source of infection? No. Patient's initial sepsis screen is negative. Risk Assessment: Do you want to hurt yourself or someone else? Patient reports no desire to harm self or others. Onset of symptoms was December 14, 2019. 20:45 Method Of Arrival: Ambulatory ca1 20:45 Acuity: JI 4 ca1 Triage Assessment: 21:23 General: Behavior is calm, cooperative, appropriate for age. tl2 Historical: - Allergies: 20:48 No Known Allergies; ca1 - Home Meds: 20:48 pravastatin oral oral [Active]; omeprazole 40 mg Oral cpDR 1 cap once daily [Active]; ca1 gabapentin 600 mg Oral tab daily [Active]; amlodipine 5 mg tab 1 tab once daily [Active]; carvedilol 6.25 mg oral tab 1 tab every 12 hours [Active]; 20:48 Allopurinol Oral [Active]; ca1 - PMHx: 20:48 Anxiety; Depression; GERD; Gout; Hypertension; Kidney stones; Chronic pain; neuropathy; ca1 - PSHx: 20:48 Bladder suspension; Hysterectomy; Cholecystectomy; Kidney stone removed; ca1 - Immunization history:: Adult Immunizations up to date. - Social history:: Smoking status: Patient denies any tobacco usage or history of. Screenin:03 Abuse screen: Denies threats or abuse. Nutritional screening: No deficits noted. tl2 Tuberculosis screening: No symptoms or risk factors identified. Fall Risk None identified. Assessment: 21:03 General: Appears in no apparent distress. uncomfortable. Pain: Complains of pain in tl2 left upper eyelid. Neuro: Level of Consciousness is awake, alert, obeys commands, Oriented to person, place, time, situation. Respiratory: Airway is patent Respiratory effort is even, unlabored, Respiratory pattern is regular, symmetrical. Derm: Skin is pink, warm \T\ dry. Stye present on left upper eyelid, redness and swelling noted but not evidence of infection. Vital Signs: 20:45 BP 155 / 99; Pulse 110; Resp 16 S; Temp 98.7(TE); Pulse Ox 98% on R/A; Weight 102.51 kg ca1 (R); Height 5 ft. 3 in. (160.02 cm) (R); Pain 10/10; 21:22 Pulse 99; Resp 18; Pulse Ox 98% on R/A; tl2 20:45 Body Mass Index 40.03 (102.51 kg, 160.02 cm) ca1 ED Course: 20:41 Patient arrived in ED. fj1 20:46 Triage completed. ca1 20:48 Arm band placed on right wrist. ca1 21:01 Lesli Richardson FNP-C [facility]. kb 21:01 Siddhartha Barajas MD is Attending Physician. kb 21:03 Patient has correct armband on for positive identification. Bed in low position. Call tl2 light in reach. Side rails up X 1. 21:03 No provider procedures requiring assistance completed. Patient did not have IV access tl2 during this emergency room visit. 21:17 Philomena Garcia, YENY is Primary Nurse. tl2 Administered Medications: 21:14 Drug: [place] (7.5 mg-325 mg) 1 tabs Route: PO; tl2 21:23 Follow up: Response: No adverse reaction; Medication administered at discharge. tl2 Outcome: 21:06 Discharge ordered by . kb 21:22 Discharged to home ambulatory, with family. tl2 21:22 Condition: stable 21:22 Discharge instructions given to patient, Instructed on discharge instructions, follow up and referral plans. medication usage, Demonstrated understanding of instructions, follow-up care, wound care, instructed to use a warm compress 21:23 Patient left the ED. tl2 Signatures: Lesli Richardson, ALFONZO MIRELES-Philomena Vasquez RN RN tl2 Lynda Hernadez RN RN ca1 Forest Chandra fj1
--- NOTE | 2019-12-14 21:06 | EDPHYS ---
Physician Documentation [facility] Name: Lilian Garland Age: 69 yrs Sex: Female : 1950 Arrival Date: 12/14/2019 Time: 20:41 Bed 25 Private MD: ED Physician Siddhartha Barajas HPI: 12/13 21:09 This 69 yrs old Female presents to ER via Ambulatory with complaints of STYE kb ON THE EYELID THAT IS CAUSING PROBLEMS. 21:09 The patient is experiencing pain, redness, The patient sustained None. to the left eye, kb caused by stye. Onset: The symptoms/episode began/occurred 3 day(s) ago. Duration: the symptoms are continuous. Aggravated by pressure, Alleviated by nothing. Associated signs and symptoms: Pertinent positives: None. Severity of symptoms: At their worst the symptoms were moderate in the emergency department the symptoms are unchanged. The patient has not experienced similar symptoms in the past. The patient has not recently seen a physician. Pt reports stye to left upper eyelid that started 3 days ago and pain has increased. Historical: - Allergies: 20:48 No Known Allergies; ca1 - Home Meds: 20:48 pravastatin oral oral [Active]; omeprazole 40 mg Oral cpDR 1 cap once daily [Active]; ca1 gabapentin 600 mg Oral tab daily [Active]; amlodipine 5 mg tab 1 tab once daily [Active]; carvedilol 6.25 mg oral tab 1 tab every 12 hours [Active]; 20:48 Allopurinol Oral [Active]; ca1 - PMHx: 20:48 Anxiety; Depression; GERD; Gout; Hypertension; Kidney stones; Chronic pain; neuropathy; ca1 - PSHx: 20:48 Bladder suspension; Hysterectomy; Cholecystectomy; Kidney stone removed; ca1 - Immunization history:: Adult Immunizations up to date. - Social history:: Smoking status: Patient denies any tobacco usage or history of. ROS: 21:07 Constitutional: Negative for fever, chills, and weight loss, Neck: Negative for injury, kb pain, and swelling, Cardiovascular: Negative for chest pain, palpitations, and edema, Respiratory: Negative for shortness of breath, cough, wheezing, and pleuritic chest pain, Abdomen/GI: Negative for abdominal pain, nausea, vomiting, diarrhea, and constipation, MS/Extremity: Negative for injury and deformity, Skin: Negative for injury, rash, and discoloration, Neuro: Negative for headache, weakness, numbness, tingling, and seizure. 21:07 Eyes: Positive for pain, swelling, of the left upper eyelid, stye. Exam: 21:07 Constitutional: This is a well developed, well nourished patient who is awake, alert, kb and in no acute distress. Head/Face: Normocephalic, atraumatic. Neck: Trachea midline, no thyromegaly or masses palpated, and no cervical lymphadenopathy. Supple, full range of motion without nuchal rigidity, or vertebral point tenderness. No Meningismus. Chest/axilla: Normal chest wall appearance and motion. Nontender with no deformity. No lesions are appreciated. Cardiovascular: Regular rate and rhythm with a normal S1 and S2. No gallops, murmurs, or rubs. Normal PMI, no JVD. No pulse deficits. Respiratory: Lungs have equal breath sounds bilaterally, clear to auscultation and percussion. No rales, rhonchi or wheezes noted. No increased work of breathing, no retractions or nasal flaring. Abdomen/GI: Soft, non-tender, with normal bowel sounds. No distension or tympany. No guarding or rebound. No evidence of tenderness throughout. Skin: Warm, dry with normal turgor. Normal color with no rashes, no lesions, and no evidence of cellulitis. MS/ Extremity: Pulses equal, no cyanosis. Neurovascular intact. Full, normal range of motion. Neuro: Awake and alert, GCS 15, oriented to person, place, time, and situation. Cranial nerves II-XII grossly intact. Motor strength 5/5 in all extremities. Sensory grossly intact. Cerebellar exam normal. Normal gait. 21:07 Eyes: Pupils: equal, round, and reactive to light and accomodation, Extraocular movements: intact throughout, Conjunctiva: normal, Lids and lashes: stye, on the left lid. Vital Signs: 20:45 BP 155 / 99; Pulse 110; Resp 16 S; Temp 98.7(TE); Pulse Ox 98% on R/A; Weight 102.51 kg ca1 (R); Height 5 ft. 3 in. (160.02 cm) (R); Pain 10/10; 21:22 Pulse 99; Resp 18; Pulse Ox 98% on R/A; tl2 20:45 Body Mass Index 40.03 (102.51 kg, 160.02 cm) ca1 MDM: 21:01 Patient medically screened. kb 21:07 Data reviewed: vital signs, nurses notes. Data interpreted: Pulse oximetry: on room air kb is 98 %. Interpretation: normal. Counseling: I had a detailed discussion with the patient and/or guardian regarding: the historical points, exam findings, and any diagnostic results supporting the discharge/admit diagnosis, the need for outpatient follow up, an opthalmologist, to return to the emergency department if symptoms worsen or persist or if there are any questions or concerns that arise at home. Administered Medications: 21:14 Drug: [place] (7.5 mg-325 mg) 1 tabs Route: PO; tl2 21:23 Follow up: Response: No adverse reaction; Medication administered at discharge. tl2 Disposition: 12/14 08:03 Co-signature as Attending Physician, Siddhartha Barajas MD I agree with the assessment and sushant plan of care. Disposition: 12/14/19 21:06 Discharged to Home. Impression: Hordeolum externum left upper eyelid. - Condition is Stable. - Discharge Instructions: Stye. - Medication Reconciliation Form, Thank You Letter, Antibiotic Education, Prescription Opioid Use form. - Follow up: Emergency Department; When: As needed; Reason: Worsening of condition. Follow up: Private Physician; When: 2 - 3 days; Reason: Recheck today's complaints, Continuance of care, Re-evaluation by your physician. Signatures: Lesli Richardson, LIFE SKILLS COACH-C LIFE SKILLS COACH-Siddhartha Dodd MD MD cha Knox, Taylor, RN RN tl2 Lynda Hernadez RN RN ca1 Corrections: (The following items were deleted from the chart) 12/13 21:23 21:06 12/14/2019 21:06 Discharged to Home. Impression: Hordeolum externum left upper tl2 eyelid. Condition is Stable. Discharge Instructions: Stye. Forms are Medication Reconciliation Form, Thank You Letter, Antibiotic Education, Prescription Opioid Use. Follow up: Emergency Department; When: As needed; Reason: Worsening of condition. Follow up: Private Physician; When: 2 - 3 days; Reason: Recheck today's complaints, Continuance of care, Re-evaluation by your physician. kb
[2019-12-14] MEDS ORDERED: HYDROCODONE/APAP 7.5/325 MG TAB ONE (21:18)
[2019-12-14 21:28] VITALS: BP 155/99; TEMP 98.7; O2SAT 98
== END 2019-12-14 21:23 | disposition home or self-care (01) ==
LOC: ER 20:38
DX: H00.014 Hordeolum externum left upper eyelid (principal); I10 Essential (primary) hypertension; F34.1 Dysthymic disorder
CPT/HCPCS: 99283

== ENCOUNTER 2020-08-04 11:10 | Observation (INO) | payer OTHER ==
--- OUTSIDE RECORDS SUMMARY | 2020-08-04 11:12 | XMS REPORT | Clinical Summary ---
:1950 Author Organization [facility] Address [address] [place] [address] Care Team Providers Name Role Phone Unavailable Primary Care Provider Unavailable Allergies No Known Active Allergies Medications Medication Sig Dispensed Refills Start [...] Done Comments Breast Cancer Scrn (Yearly) 1990 FIT Colorectal Cancer Scrn 2000 IMM Pneumococcal Age 65 and Up 2015 IMM Influenza Seasonal Apr to September (>/= 19 yrs) 04/30/2020 Results Not on fileafter 08/04/2019 Insurance Payer Benefit Plan / Subscriber ID Effective Dates Phone Addre ss Type Group [employer] [id number] 2016-[place] [phone] [address] [place] [address]
--- OUTSIDE RECORDS SUMMARY | 2020-08-04 11:12 | XMS REPORT | Continuity of Care Document ---
:1950 Author Organization [facility] t Address 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 He alth disorder), disorder), 00:00: recurrent recurrent 00 episode, episode, mild mild Conversion Conversion Disease Active [facility] disorder disorder 04-07 [facility] - [facility]: Medical [facility] Center Cerebral [facility]bral [facility] Syncope Syncope Disease Active [facility] - [facility] [place] Delusion Delusion Disease [facility] [place] Anxiety Anxiety Disease Active [facility] 00 [place] Visual Visual Disease Active Ehsan hallucinat hallucinat He alth ions ions Allergies, Adverse Reactions, Alerts This patient has no known allergies or adverse reactions. Social History Social Habit Start Date Stop Date Quantity Comments Source Sex Assigned At [facility] Alcohol intake 2016-04-06 2016-04-06 Current [facility] - 00:00:00 00:00:00 non-drinker of Medical Ce nter alcohol (finding) Smoking Status Start Date Stop Date Source Never smoker [facility] Medications Ordered Filled Start Stop Current Ordering Indication Dosage Frequency Signature Comments Components Source Medication Medication Date Date Medication? Clinician (SIG) Name Name Ferrous Ferrous Yes Bo [address] Sulfate Sulfate 04-07 [facility] - 00:[facility]: [facility] 00 [facility] metoprolol Yes 100mg QD Take 100 Cade rris succinate 9-08 mg by hoozin (TOPROL XL) 16:03: mouth 100 mg 02 daily. extended release tablet metoprolol Yes 100mg Q.5D Take [address] (LOPRESSOR) 9-08 mg by [facility] - 100 MG 05:21: mouth 2 Medical tablet 37 (two) Center times daily. omeprazole Yes 20mg QD Take [address] (PRILOSEC) 9-08 by mouth [facility] - 20 MG 05:21: daily. Medical capsule 37 [place] ALPRAZolam Yes .25mg Take 0.[address] (XANAX) 9-08 mg by [facility] - 0.25 MG 05:21: mouth 3 Medical tablet 37 (three) Center times daily as needed for Anxiety. sertraline Yes MDD (major 25mg Take 1 [facility] (ZOLOFT) 25 08 depressive tablet by hoozin mg tablet 00:00: disorder), mouth at 00 recurrent bedtime episode, nightly. mild Carvedilol Carvedilol Yes Bo [address] [facility] with food [facility] ent [facility] Amlodipine Amlodipine Yes Bo [address] [facility] [address] Besylate Besylate [facility] Zolpidem Zolpidem Yes Bo [address] Tartrate Tartrate Hernandez at bedtime [facility]N [facility] Gabapentin Gabapentin Yes Bo [address] [facility] Belsomra Belsomra Yes Bo [address] Hernandez at bedtime [facility] - as needed [facility] Pravastatin Pravastatin Yes Bo [address] [facility] Sodium Sodium [facility] Omeprazole Omeprazole Yes Bo [address] [facility] Hernandez 30 minutes [facility] - before [facility] morning l meal [facility] Procedures This patient has no known procedures. Plan of Care Planned Activity Planned Date Details Comments Source Future Scheduled Test 2020-04-30 IMM Influenza Seasonal [facility] 00:00:00 Apr to September (>/= 19 yrs) [code = IMM Influenza Seasonal Apr to September (>/= 19 yrs)] Future Scheduled Test 2015 IMM Pneumococcal Age 65 [facility] 00:00:00 and Up [code = IMM Pneumococcal Age 65 and Up] Future Scheduled Test 2000 Screening for malignant [facility] 00:00:00 neoplasm of colon (procedure) [code = 350384642] Future Scheduled Test 1990 Breast Cancer Scrn [facility] 00:00:00 (Yearly) [code = Breast Cancer Scrn (Yearly)] Encounters Start End Encounter Admission Attending Care Care Encounter Source Date/Time Date/Time Type Type Clinicians Facility Department ID 2020-07-28 2020-07-28 Orders Doctor OSIEL [id number] 00:00:00 00:00:00 Only UnassignedSTEPHANIE [id number] [facility] [id number] 2020-07-16 2020-07-16 Orders Doctor OSIEL [id number] 00:00:00 00:00:00 Only UnassignedSTEPHANIE [id number] [place] [id number] 2020-07-10 2020-07-10 Outpatient [facility] [id number] [facility] Clinics 2020-06-29 2020-06-29 [facility] [id number] [facility] 2020-06-08 2020-06-08 [facility] [id number] [facility] 2020-05-28 2020-05-28 Transition Keerthi, Mauro [id number] 00:00:00 00:00:00 of Care Manuelito Spears [id number] [place] [id number] 2020-05-26 2020-05-27 Emergency Eduardo Bridges [facility] [id number] 12:52:00 14:03:00 Raphael Cordova [id number] [place] [id number] [place] [id number] 2020-05-27 2020-05-27 Telephone Sean [facility] [id number] 00:00:00 00:00:00 Raji Hanson [id number] [place] [id number] [id number] [address] 2020-04-07 2020-04-07 [facility] [id number] 09:10:00 09:10:00 t [employer] [facility] ent Clinics 2020-03-30 2020-03-30 [facility] [id number] [address] 09:24:00 09:24:[address] [employer] [facility] Medicine [facility] ent Clinics 2020-03-24 2020-03-24 [facility] [id number] 14:30:00 14:30:00 t [facility] 2020-03-24 2020-03-24 [facility] [id number] [facility] 2020-03-23 2020-03-23 [facility] [id number] 10:32:00 10:32:00 t [employer] s - Drive [facility] Clin[facility] 2020-03-05 2020-03-05 [facility] [id number] 15:11:00 15:11:[address] [facility] [address] LuSelatra s - Road [facility] 2020-03-05 2020-03-05 [facility] [id number] 14:06:00 14:06:00 t [employer] s - Drive [facility] 2020-03-05 2020-03-05 [facility] [id number] 11:21:00 11:21:00 t [employer] s - Drive [facility] 2020-03-03 2020-03-03 [facility] [id number] 13:30:00 13:30:00 t [employer] s - Drive [facility] 2020-02-10 2020-02-10 [facility] [id number] 13:30:00 13:30:00 t [employer] s - Drive [facility] Results This patient has no known results.
--- OUTSIDE RECORDS SUMMARY | 2020-08-04 11:12 | XMS REPORT | Clinical Summary ---
:1950 Author Organization [facility] Address [address] [place] [address] Support Name Relationship Address Phone Temi Chang Unavailable [address] [facility] [place] [address] Noel Diaz Unavailable [address] [facility] Team Providers Name Role Phone Lala Barnes [...] Not on file Results Not on fileafter 08/04/2019 Insurance Payer Benefit Plan / Subscriber ID Effective Phone Address T ype Group Dates CIGNA CIGNA [id number] 2015-Pre [facility] ALL sent Contracted Advance Directives For more information, please contact: [phone] Code Status Date Activated Date Inactivated Comments Full Code 04/06/2016 5:42 AM 04/07/2016 7:21 AM This code status was determined by: Patient
--- OUTSIDE RECORDS SUMMARY | 2020-08-04 11:14 | XMS REPORT | Summary of Care ---
:1950 Author Organization [facility] - Health Address [address] [place] [address] Care Team Providers Name Role Phone Gabriel Moreira CRNA Unavailable Jadyn Mohr MD Unavailable Ed Hernandez Primary Care Provider Encounter Details Date Type Department Care Team Description 07/28/2020 Orders Only [facility] Doctor Unassigned, No [address] [facility] [place] [facility] Name [place] [phone] [place] [address] Allergies No Known Allergiesdocumented as of this encounter (statuses as of 07/29/2020) Medications Medication Sig Dispensed Refills Start Date End Date Status gabapentin 600 mg Take 600 mg by 0 Active tablet mouth 2 (two) times daily. omeprazole 20 mg Take 20 mg by 0 Active capsule mouth daily. pravastatin 20 mg Take 20 mg by 0 Active tablet mouth at bedtime. carvediloL 6.25 mg Take 6.25 mg by 0 Active tablet mouth 2 (two) times daily with meals. amLODIPine 5 mg tablet Take 5 mg by mouth 0 Active daily. donepeziL 5 mg tablet Take 5 mg by mouth 0 Active at bedtime. zolpidem 5 mg tablet Take 5 mg by mouth 0 Active at bedtime as needed for Insomnia. traMADoL 50 mg Take 1 tablet by 15 tablet 0 05/27/2020 Active tabletIndications: mouth every 8 acute pain (eight) hours as needed for Pain (scale 7-10). Indications: acute pain furosemide 20 mg Take 1 tablet by 30 tablet 0 05/27/2020 Active tabletIndications: mouth daily. Chest pain, unspecified type documented as of this encounter (statuses as of 07/29/2020) Active Problems Problem Noted Date Obesity (BMI 30-39.9) 05/26/2020 History of transient ischemic attack (TIA) 05/26/2020 HLD (hyperlipidemia) 05/26/2020 Screening breast examination 03/14/2013 Essential hypertension 03/14/2013 Overview: ICD10 Diagnosis Term Pneumatic Press Hand Utility Depression 03/14/2013 Generalized anxiety disorder 03/14/2013 Chest pain 03/14/2013 Overview: Sent to local ER via ambulance on 03/14/2013. ICD10 Diagnosis Term Pneumatic Press Hand Utility Morbid obesity 03/14/2013 documented as of this encounter (statuses as of 07/29/2020) Immunizations Name Administration Dates Next Due Td 03/14/2011 documented as of this encounter Social History Tobacco Use Types Packs/Day Years Used Date Never Smoker Smokeless Tobacco: Never Used Alcohol Use Drinks/Week oz/Week Comments No Sex Assigned at Date Recorded Not on file documented as of this encounter Last Filed Vital Signs Not on filedocumented in this encounter Plan of Treatment Health Maintenance Due Date Last Done Comments HEPATITIS C (HCV) SCREEN 1950 Depression Screening 1962 DTaP,Tdap,and Td Vaccines (1 - Tdap) 1969 03/14/2011 COLON CANCER SCREENING ANNUAL FIT/FOBT 2000 COLON CANCER SCREENING FIT DNA EVERY 3 YEARS 2000 COLON CANCER SCREENING SIGMOIDOSCOPY EVERY 5 YEARS 2000 COLONOSCOPY 2000 Colorectal Cancer Screening 2000 Zoster Recombinant Vaccine (SHINGRIX) (1 of 2) 2000 Breast Cancer Screening (MAMMOGRAM) 04/29/2014 04/29/2013 Medicare Wellness Visit 2015 Osteoporosis Screening 2015 PNEUMOCOCCAL VACCINES 65+ (1 of 1 - PPSV23) 2015 INFLUENZA VACCINE (#1) 2020 documented as of this encounter Procedures Procedure Name Priority Date/Time Associated Diagnosis Comme nts EXTERNAL PROVIDER Routine 07/28/2020 12:01 AM SORT SUPERVISOR RECORDS documented in this encounter Results Not on filedocumented in this encounter Insurance Payer Benefit Plan / Subscriber ID Effective Dates Phone Addre ss Type Group Inmoo [id number] 2015-Pres Medicare Adv spring ent HMO AGENCY GENERIC AGENCY GENERIC [id number] 2013-[facility] Agency t documented as of this encounter
[2020-08-04] MEDS ORDERED: NA CHLORIDE 0.9% 500 ML ONE (12:15)
[2020-08-04] MEDS ORDERED: ONDANSETRON 4 MG/2 ML VIAL ONE (12:15)
[2020-08-04] MEDS ORDERED: MORPHINE 4 MG/ML SYR ONE ×2 (12:15→13:43)
--- NOTE | 2020-08-04 12:19 | RAD REPORT ---
EXAM DESCRIPTION: CT - Stone Protocol - 08/04/2020 12:06 pm CLINICAL HISTORY: Abdominal pain. Left flank pain COMPARISON: July 2019 TECHNIQUE: Computed axial tomography of the abdomen pelvis was obtained without oral or IV contrast. Lack of IV and oral contrast limits evaluation of solid organs, bowel, and vessels. Coronal reformat elton images were obtained and reviewed. All CT scans are performed using dose optimization technique as appropriate and may include automated exposure control or mA/KV adjustment according to patient size. FINDINGS: Multiple, bilateral small renal calculi. No hydronephrosis. A ureteral calculus is not see n. The liver is mildly enlarged with fatty infiltration. Spleen, pancreas and adrenals appear grossly normal Diverticula stem from the colon. Mild to moderate stranding adjacent to the sigmoid colon. Cholecystectomy. Hysterectomy. Small left inguinal hernia contains fat IMPRESSION: Mild to moderate sigmoid diverticulitis Bilateral small nonobstructing renal calculi
[2020-08-04 12:45] LABS: Absolute Lymphocytes (CBC) 2.3 K/uL (0.7-4.9); Basophils % 0.9 % (0-1.3); Hematocrit 37.3 % (36.0-45.0); Lymphocytes % 24.1 % (15.3-44.8); MPV 7.7 fL (7.6-11.3); RBC Red Blood Cell Count 4.49 M/uL (3.86-4.86)
[2020-08-04 12:47] LABS: Urine Blood TRACE (NEG); Urine Glucose NEGATIVE (NEG); Urine Protein NEGATIVE (NEG); Urine Specific Gravity 1.025 (1.005-1.030); Urine pH 5.5 (5.0-7.0)
[2020-08-04 12:53] LABS: Urine Bacteria LOADED /HPF (<20); Urine RBC NONE SEEN /HPF (NONE SEEN)
[2020-08-04 12:55] LABS: ALT/SGPT 28 U/L (12-78); AST/SGOT 41 U/L (15-37); Albumin 3.6 g/dL (3.4-5.0); Alkaline Phosphatase 119 U/L (45-117); BUN Blood Urea Nitrogen 16 mg/dL (7-18); Bicarbonate 31 mmol/L (21-32); Bilirubin Direct < 0.1 mg/dL (0-0.2); Bilirubin Total 0.5 mg/dL (0.2-1.0); Glucose Level 110 mg/dL (74-106); Lipase 98 U/L (73-393); Protein, Total 8.1 g/dL (6.4-8.2); Sodium Level 140 mmol/L (136-145)
[2020-08-04] MEDS ORDERED: METRONIDAZOLE 500mg IVPB 500 MG/100 ML BAG IV ONE (13:15)
[2020-08-04 13:22] LABS: Anisocytosis SLIGHT; Blood Morphology Comment NOTED (NOT SEEN); Platelet Estimate ADEQ
[2020-08-04] MEDS ORDERED: CIPROFLOXACIN 400mg IV 400 MG/200 ML BAG IV ONE (13:43)
--- NOTE | 2020-08-04 14:03 | EDPHYS ---
Physician Documentation [facility] Name: Lilian Garland Age: 70 yrs Sex: Female : 1950 Arrival Date: 08/04/2020 Time: 11:12 Bed 7 Private MD: JASPREET Physician Siddhartha Barajas HPI: 08/04 12:05 This 70 yrs old Female presents to ER via Ambulatory with complaints of Low cp Back Pain, Abdominal Pain. 12:05 The patient presents with pain that is acute, with no known mechanism of injury. The cp symptoms are located in the left flank. The pain radiates to the left low back. The problem was sustained possible kidney stone. Onset: The symptoms/episode began/occurred 2 day(s) ago. Historical: - Allergies: 11:24 No Known Allergies; tw2 - Home Meds: 11:24 amlodipine 5 mg tab 1 tab once daily [Active]; carvedilol 6.25 mg Oral tab 1 tab every tw2 12 hours [Active]; gabapentin 600 mg Oral tab 1 tab 3 times per day [Active]; omeprazole 40 mg Oral cpDR 1 cap once daily [Active]; donepezil 5 mg oral TbDL 1 tab once daily [Active]; pravastatin 20 mg oral tab 1 tab once daily [Active]; furosemide 20 mg Oral tab 1 tab once daily [Active]; duloxetine 20 mg oral cpDR 1 cap 2 times per day [Active]; - PMHx: 11:24 Anxiety; Chronic pain; Depression; GERD; Gout; Hypertension; Kidney stones; neuropathy; tw2 Dementia; - PSHx: 11:24 Bladder suspension; Hysterectomy; Cholecystectomy; Kidney stone removed; tw2 - Immunization history:: Adult Immunizations. - Social history:: Smoking status: Patient denies any tobacco usage or history of. ROS: 12:10 Back: Positive for flank pain, on the left. cp 12:10 Eyes: Negative for injury, pain, redness, and discharge. cp 12:10 Constitutional: Negative for body aches, chills, fever. 12:10 Cardiovascular: Negative for chest pain, palpitations. 12:10 Respiratory: Negative for cough, shortness of breath, wheezing. 12:10 Abdomen/GI: Positive for abdominal pain, nausea, Negative for diarrhea, constipation, black/tarry stool, rectal bleeding. 12:10 : Negative for urinary symptoms. 12:10 Neuro: Negative for altered mental status, headache, numbness, weakness. 12:10 All other systems are negative. Exam: 12:15 Constitutional: The patient appears in no acute distress, alert, awake, cp non-diaphoretic, non-toxic, well developed, well nourished. 12:15 Head/Face: Normocephalic, atraumatic. cp 12:15 Eyes: Periorbital structures: appear normal, Conjunctiva: normal, no exudate, no injection, Sclera: no appreciated abnormality, Lids and lashes: appear normal, bilaterally. 12:15 ENT: External ear(s): are unremarkable, Nose: is normal, Mouth: Lips: moist, Oral mucosa: moist, Posterior pharynx: Airway: no evidence of obstruction, patent. 12:15 Chest/axilla: Inspection: normal, Palpation: is normal, no crepitus, no tenderness. 12:15 Cardiovascular: Rate: tachycardic, Rhythm: regular, Edema: is not appreciated, JVD: is not appreciated. 12:15 Respiratory: the patient does not display signs of respiratory distress, Respirations: normal, no use of accessory muscles, no retractions, no splinting, no tachypnea, labored breathing, is not present, Breath sounds: are clear throughout, no decreased breath sounds, no stridor, no wheezing. 12:15 Abdomen/GI: Inspection: abdomen appears normal, Bowel sounds: active, all quadrants, Palpation: soft, in all quadrants, severe abdominal tenderness, in the posterior aspect of left lateral abdomen, anterior aspect of left lateral abdomen and left lower quadrant, rebound tenderness, is not appreciated, voluntary guarding, is elicited in the left lower quadrant. 12:15 Back: pain, that is moderate, of the left low back, ROM is normal. 12:15 Skin: no rash present. 12:15 Neuro: Orientation: to person, place \T\ time. Mentation: is normal. Vital Signs: 11:19 BP 163 / 92; Pulse 103; Resp 18; Temp 97.6(TE); Pulse Ox 97% on R/A; Weight 102.97 kg tw2 (R); Height 5 ft. 3 in. (160.02 cm); Pain 10/10; 13:19 BP 121 / 75; Pulse 73; Resp 18 S; Pulse Ox 96% on R/A; jd3 14:57 BP 107 / 67; Pulse 66; Resp 17 S; Pulse Ox 95% on R/A; jd3 15:54 BP 107 / 57; Pulse 71; Resp 17 S; Pulse Ox 95% on R/A; jd3 11:19 Body Mass Index 40.21 (102.97 kg, 160.02 cm) tw2 MDM: 12:00 Differential diagnosis: UTI, kidney stone, diverticulitis, sepsis. cp 12:06 Patient medically screened. sushant 15:43 ED course: VSS. Patient continues to c/o pain of 7 on 1-10 scale after administration cp of pain medications. Will admit for pain control. 15:45 Data reviewed: vital signs, nurses notes, lab test result(s), radiologic studies, CT cp scan. 15:45 Counseling: I had a detailed discussion with the patient and/or guardian regarding: the cp historical points, exam findings, and any diagnostic results supporting the discharge/admit diagnosis, lab results, radiology results. Physician consultation: Delonte Dueñas MD was called at 15:40, was contacted at 15:40, regarding admission, to the medical/surgical unit. patient's condition. 08/04 11:56 Order name: Basic Metabolic Panel; Complete Time: 13:12 cp 08/04 11:56 Order name: CBC with Diff cp 08/04 11:56 Order name: Hepatic Function; Complete Time: 13:12 cp 08/04 11:56 Order name: Lipase; Complete Time: 13:12 cp 08/04 11:56 Order name: Urine Microscopic Only; Complete Time: 13:12 cp 08/04 13:13 Interpretation: Normal except: UWBC 5-10; UBACT LOADED. cp 08/04 12:31 Order name: Urine Dipstick--Ancillary (enter results); Complete Time: 13:12 bd 08/04 11:56 Order name: CT Stone Protocol; Complete Time: 12:35 cp 08/04 12:54 Order name: Urine Culture EDOK 08/04 13:22 Order name: Manual Differential EDMS 08/04 15:38 Order name: COVID-19 cp 08/04 16:09 Order name: CORONAVIRUS EDMS 08/04 11:56 Order name: IV Saline Lock; Complete Time: 12:31 cp 08/04 11:56 Order name: Labs collected and sent; Complete Time: 12:31 cp 08/04 11:56 Order name: Urine Dipstick-Ancillary (obtain specimen); Complete Time: 12:31 cp Administered Medications: 12:31 Drug: morphine 4 mg Route: IVP; Site: right antecubital; jd3 13:30 Follow up: Response: No adverse reaction; RASS: Alert and Calm (0) jd3 12:31 Drug: Zofran (Ondansetron) 4 mg Route: IVP; Site: right antecubital; jd3 13:30 Follow up: Response: No adverse reaction jd3 12:31 Drug: NS 0.9% 500 ml Route: IV; Rate: 500 ml/hr; Site: right antecubital; jd3 13:30 Follow up: Response: No adverse reaction; IV Status: Completed infusion; IV Intake: jd3 500ml 13:04 Drug: metroNIDAZOLE 500 mg Volume: 100 ml; Route: IVPB; Infused Over: 30 mins; Site: j right antecubital; 13:37 Follow up: Response: No adverse reaction; IV Status: Completed infusion; IV Intake: jd3 100ml 13:37 Drug: morphine 4 mg Route: IVP; Site: right antecubital; jd3 14:30 Follow up: Response: No adverse reaction; RASS: Alert and Calm (0) jd3 13:37 Drug: Cipro 400 mg Volume: 200 ml; Route: IVPB; Infused Over: 60 mins; Site: right jd3 antecubital; 14:35 Follow up: Response: No adverse reaction; IV Status: Completed infusion; IV Intake: jd3 200ml Disposition: 08/04/20 14:03 Hospitalization ordered by Delonte Dueñas for Inpatient Admission. Preliminary diagnosis are Diverticulitis of intestine, part unspecified, without perforation or abscess without bleeding, Other abdominal pain - intractable. - Bed requested for Telemetry/MedSurg (Inpatient). - Status is Inpatient Admission. jd3 - Condition is Stable. - Problem is new. - Symptoms have improved. Addendum: 08/05/2020 17:21 Co-signature as Attending Physician, Siddhartha Barajas MD I agree with the assessment and c knapp plan of care. Signatures: Dispatcher [employer] EDOK Vielka Magana Corey, MD MD cha Page, Siddhartha, PA PA cp Vilma Dash, RN RN tw2 Shawn Ng, RN RN jd3 Corrections: (The following items were deleted from the chart) 08/04 14:03 14:03 Hospitalization Ordered by Delonte Dueñas MD for Inpatient Admission. Preliminary cp diagnosis is Diverticulitis of intestine, part unspecified, without perforation or abscess without bleeding; Other abdominal pain - intractable. Bed requested for Telemetry/MedSurg (observation). Status is Inpatient Admission. Condition is Stable. Problem is new. Symptoms have improved. cp 15:52 14:03 08/04/2020 14:03 Hospitalization Ordered by Delonte Dueñas MD for Inpatient bd Admission. Preliminary diagnosis is Diverticulitis of intestine, part unspecified, without perforation or abscess without bleeding; Other abdominal pain - intractable. Bed requested for Telemetry/MedSurg (Inpatient). Status is Inpatient Admission. Condition is Stable. Problem is new. Symptoms have improved. cp 16:37 15:52 08/04/2020 14:03 Hospitalization Ordered by Delonte Dueñas MD for Inpatient jd3 Admission. Preliminary diagnosis is Diverticulitis of intestine, part unspecified, without perforation or abscess without bleeding; Other abdominal pain - intractable. Bed requested for Telemetry/MedSurg (Inpatient). Status is Inpatient Admission. Condition is Stable. Problem is new. Symptoms have improved. bd
--- NOTE | 2020-08-04 14:03 | ER ---
Nurse's Notes [facility] Name: Lilian Garland Age: 70 yrs Sex: Female : 1950 Arrival Date: 08/04/2020 Time: 11:12 Bed 7 Private MD: Diagnosis: Diverticulitis of intestine, part unspecified, without perforation or abscess without bleeding;Other abdominal pain-intractable Presentation: 08/04 11:19 Chief complaint: Patient states: i have kidney stones i am assuming that is what it is, tw2 i have had them before and have had surgery, for passed 3 days it has gotten worse, lower left back pain, denies VD, i do feel nauseous. Coronavirus screen: nausea, Client presents with at least one sign or symptom that may indicate coronavirus-19. Ebola Screen: Patient denies travel to an Ebola-affected area in the 21 days before illness onset. Initial Sepsis Screen: Does the patient meet any 2 criteria? HR > 90 bpm. Does the patient have a suspected source of infection? No. Patient's initial sepsis screen is negative. Risk Assessment: Do you want to hurt yourself or someone else? Patient reports no desire to harm self or others. Onset of symptoms was August 04, 2020. 11:19 Method Of Arrival: Ambulatory tw2 11:19 Acuity: JI 3 tw2 Triage Assessment: 11:24 General: Appears in no apparent distress. uncomfortable, obese, well groomed, Behavior tw2 is calm, cooperative, appropriate for age. Pain: Complains of pain in lumbar area and left low back. GI: Reports nausea. Historical: - Allergies: 11:24 No Known Allergies; tw2 - Home Meds: 11:24 amlodipine 5 mg tab 1 tab once daily [Active]; carvedilol 6.25 mg Oral tab 1 tab every tw2 12 hours [Active]; gabapentin 600 mg Oral tab 1 tab 3 times per day [Active]; omeprazole 40 mg Oral cpDR 1 cap once daily [Active]; donepezil 5 mg oral TbDL 1 tab once daily [Active]; pravastatin 20 mg oral tab 1 tab once daily [Active]; furosemide 20 mg Oral tab 1 tab once daily [Active]; duloxetine 20 mg oral cpDR 1 cap 2 times per day [Active]; - PMHx: 11:24 Anxiety; Chronic pain; Depression; GERD; Gout; Hypertension; Kidney stones; neuropathy; tw2 Dementia; - PSHx: 11:24 Bladder suspension; Hysterectomy; Cholecystectomy; Kidney stone removed; tw2 - Immunization history:: Adult Immunizations. - Social history:: Smoking status: Patient denies any tobacco usage or history of. Screenin:20 Abuse screen: Denies threats or abuse. Nutritional screening: No deficits noted. jd3 Tuberculosis screening: No symptoms or risk factors identified. Fall Risk IV access (20 points). Ambulatory Aid- None/Bed Rest/Nurse Assist (0 pts). Gait- Normal/Bed Rest/Wheelchair (0 pts) Mental Status- Oriented to own ability (0 pts). Total Freeman Fall Scale indicates No Risk (0-24 pts). Assessment: 12:30 General: Appears uncomfortable, Behavior is calm, cooperative, appropriate for age. jd3 Pain: Complains of pain in left flank and abdomen Quality of pain is described as aching, tender. Neuro: Level of Consciousness is awake, alert, obeys commands, Oriented to person, place, time, situation. Cardiovascular: Denies chest pain, Capillary refill < 3 seconds Patient's skin is warm and dry. Respiratory: Airway is patent Respiratory effort is even, unlabored, Respiratory pattern is regular, symmetrical, Denies cough, shortness of breath. GI: Abdomen is round non-distended, Abd is soft X 4 quads Abdomen is tender to palpation X 4 quads. Reports nausea. : No signs and/or symptoms were reported regarding the genitourinary system. EENT: No signs and/or symptoms were reported regarding the EENT system. Derm: Skin is intact, Skin is dry, Skin is normal, Skin temperature is warm. Musculoskeletal: Circulation, motion, and sensation intact. Range of motion: intact in all extremities. 14:57 Reassessment: Patient appears in no apparent distress at this time. Patient and/or jd3 family updated on plan of care and expected duration. Pain level reassessed. Patient is alert, oriented x 3, equal unlabored respirations, skin warm/dry/pink. Patient states feeling better. 15:53 Reassessment: Patient appears in no apparent distress at this time. Patient and/or jd3 family updated on plan of care and expected duration. Pain level reassessed. Patient is alert, oriented x 3, equal unlabored respirations, skin warm/dry/pink. 16:06 Reassessment: report given to Josselin SAINI. jd3 Vital Signs: 11:19 BP 163 / 92; Pulse 103; Resp 18; Temp 97.6(TE); Pulse Ox 97% on R/A; Weight 102.97 kg tw2 (R); Height 5 ft. 3 in. (160.02 cm); Pain 10/10; 13:19 BP 121 / 75; Pulse 73; Resp 18 S; Pulse Ox 96% on R/A; jd3 14:57 BP 107 / 67; Pulse 66; Resp 17 S; Pulse Ox 95% on R/A; jd3 15:54 BP 107 / 57; Pulse 71; Resp 17 S; Pulse Ox 95% on R/A; jd3 11:19 Body Mass Index 40.21 (102.97 kg, 160.02 cm) tw2 ED Course: 11:12 Patient arrived in ED. ag3 11:21 Triage completed. tw2 11:25 Arm band placed on. tw2 11:46 Siddhartha Arzola PA is PHCP. cp 11:46 Siddhartha Barajas MD is Attending Physician. cp 11:50 Shawn Ng RN is Primary Nurse. jd3 12:06 CT Stone Protocol In Process Unspecified. EDMS 13:20 Patient has correct armband on for positive identification. Placed in gown. Bed in low jd3 position. Call light in reach. Side rails up X2. Pulse ox on. NIBP on. 14:02 Delonte Dueñas MD is Hospitalizing Provider. cp 16:06 No provider procedures requiring assistance completed. Patient admitted, IV remains in jd3 place. 16:33 COVID-19 Sent. kj1 16:33 CORONAVIRUS Sent. kj1 Administered Medications: 12:31 Drug: morphine 4 mg Route: IVP; Site: right antecubital; jd3 13:30 Follow up: Response: No adverse reaction; RASS: Alert and Calm (0) jd3 12:31 Drug: Zofran (Ondansetron) 4 mg Route: IVP; Site: right antecubital; jd3 13:30 Follow up: Response: No adverse reaction jd3 12:31 Drug: NS 0.9% 500 ml Route: IV; Rate: 500 ml/hr; Site: right antecubital; jd3 13:30 Follow up: Response: No adverse reaction; IV Status: Completed infusion; IV Intake: jd3 500ml 13:04 Drug: metroNIDAZOLE 500 mg Volume: 100 ml; Route: IVPB; Infused Over: 30 mins; Site: jd3 right antecubital; 13:37 Follow up: Response: No adverse reaction; IV Status: Completed infusion; IV Intake: jd3 100ml 13:37 Drug: morphine 4 mg Route: IVP; Site: right antecubital; jd3 14:30 Follow up: Response: No adverse reaction; RASS: Alert and Calm (0) jd3 13:37 Drug: Cipro 400 mg Volume: 200 ml; Route: IVPB; Infused Over: 60 mins; Site: right jd3 antecubital; 14:35 Follow up: Response: No adverse reaction; IV Status: Completed infusion; IV Intake: jd3 200ml Intake: 13:30 IV: 500ml; Total: 500ml. jd3 13:37 IV: 100ml; Total: 600ml. jd3 14:35 IV: 200ml; Total: 800ml. jd3 Outcome: 14:03 Decision to Hospitalize by Provider. cp 16:06 Admitted to Med/surg accompanied by tech, via stretcher, room 228, with chart, Report jd3 called to Josselin SAINI 16:06 Condition: stable 16:06 Instructed on the need for admit, Demonstrated understanding of instructions. 16:37 Patient left the ED. jd3 Signatures: Dispatcher [employer] EDHI Siddhartha Arzola PA PA cp Wise, Tara RN RN tw2 Shawn Ng RN RN [email or web address] Gabi Ellis ag3 Peggy Richardson kj1
--- NOTE | 2020-08-04 14:58 | P.HP ---
Certification for Inpatient Patient admitted to: Observation With expected LOS: <2 Midnights Practitioner: I am a practitioner with admitting privileges, knowledge of patient current condition, hospital course, and medical plan of care. Services: Services provided to patient in accordance with Admission requirements found in Title 42 Section 412.3 of the Code of Federal Regulations Patient History Date of Service: 08/04/20 Reason for admission: Sigmoid diverticulitis History of Present Illness: 70yo F, PMH: HTN, Dementia, Anxiety, kidney stones, Gout, who presents to ED due to 3-4 days of LLQ pain. Pain is 7/10 at worst, radiates to back, feels like "labor pains". +nausea, no vomiting. no change in bowel habits, last had normal BM yesterday. Decreased PO intake as well. Denies fever/chills at home. She reports prior diverticulitis but "never this bad". She otherwise reports being in her usual state of health up until this event. Workup in ED concerning for sigmoid diverticulitis noted on CT. labwork rather unremarkable. Vitals stable. Patient with persistent pain despite pain medication in the ED. Allergies No Known Allergies Allergy (Verified 08/24/17 08:12) Home Medications: Amlodipine Besylate 5 mg PO DAILY 08/04/20 Donepezil HCl 5 mg PO BID 08/04/20 Duloxetine HCl 20 mg PO DAILY 08/04/20 Furosemide 40 mg PO DAILY 08/04/20 Gabapentin 600 mg PO BID 08/04/20 Omeprazole [Prilosec] 40 mg PO [id number] 08/04/20 Pravastatin Sodium 20 mg PO BEDTIME 08/04/20 carvediloL [Carvedilol] 6.25 mg PO BID 6AM 6PM 08/04/20 - Past Medical/Surgical History Diabetic: No -: htn -: kidney stones -: anxiety -: leg and feet pain -: PNU -: CHOLECYSTECTOMY -: HYSTERECTOMY -: KIDNEY STONE REMOVAL -: LEFT FOOT SURGERY - Family History Family History: Reviewed- Non-Contributory - Social History Smoking Status: Never smoker Alcohol use: No CD- Drugs: No Caffeine use: Yes Place of Residence: Home (alone) Review of Systems 10-point ROS is otherwise unremarkable Physical Examination - Physical Exam General: Alert, In no apparent distress, Oriented x3 HEENT: Sclerae nonicteric Respiratory: Clear to auscultation bilaterally, Normal air movement Cardiovascular: No edema, Regular rate/rhythm Gastrointestinal: Soft and benign, Non-distended, Tenderness (LLQ, moderate) Musculoskeletal: No tenderness Integumentary: No rashes Neurological: Normal speech, Normal affect - Studies Laboratory Data (last 24 hrs) 08/04/20 12:25: WBC 9.5, Hgb 12.3, Hct 37.3, Plt Count 274 08/04/20 12:25: Sodium 140, Potassium 4.0, BUN 16, Creatinine 1.03, Glucose 110 H, Total Bilirubin 0.5, AST 41 H, ALT 28, Alkaline Phosphatase 119 H, Lipase 98 Assessment and Plan - Advance Directives Does patient have a Living Will: No Does patient have a Durable POA for Healthcare: No Physician Review Additional Text: Sigmoid diverticulitis HTN Anxiety h/o kidney stones Gout Dementia GERD Neuropathy CT Abd concerning for sigmoid diverticulitis - likely cause of her pain pt with minimal improvement in ED, will obs overnight for continued pain control continue cipro & flagyl, CLD, IVF zofran for nausea will obtain home medications and restart as appropriate Dispo: anticipate dc home in 24-48 hrs 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
[2020-08-04] MEDS ORDERED: ACETAMINOPHEN 500 MG TAB PO PRN (16:15)
[2020-08-04] MEDS: NA CHLORIDE 0.9% 1,000 ML IV SCH (16:15)
[2020-08-04] MEDS ORDERED: ONDANSETRON 4 MG/2 ML VIAL IV PRN (16:15)
[2020-08-04] MEDS: METRONIDAZOLE 250mg IVPB 250 MG/50 ML BAG IV SCH (17:12)
[2020-08-04 17:22] VITALS: BMI 39.5
[2020-08-04] MEDS: GABAPENTIN 300 MG CAP PO SCH (20:10)
[2020-08-04] MEDS: CIPROFLOXACIN 400mg IV 400 MG/200 ML BAG IV SCH (20:11)
[2020-08-04] MEDS: DONEPEZIL HCL 5 MG TAB PO SCH (20:11)
[2020-08-04] MEDS ORDERED: MELATONIN 5 MG TABLET PO PRN (22:01)
[2020-08-04] MEDS: MORPHINE 4 MG/ML SYR IV PRN (22:48)
[2020-08-05] MEDS: METRONIDAZOLE 250mg IVPB 250 MG/50 ML BAG IV SCH ×3 (00:57→16:16)
[2020-08-05] MEDS: MORPHINE 4 MG/ML SYR IV PRN ×2 (04:09→11:41)
[2020-08-05] MEDS: NA CHLORIDE 0.9% 1,000 ML IV SCH (04:10)
[2020-08-05 05:30] LABS: Absolute Lymphocytes (CBC) 2.2 K/uL (0.7-4.9); Basophils % 0.5 % (0-1.3); Hematocrit 33.5 % (36.0-45.0); Lymphocytes % 30.6 % (15.3-44.8); MPV 7.5 fL (7.6-11.3); RBC Red Blood Cell Count 3.99 M/uL (3.86-4.86)
[2020-08-05 05:47] LABS: Albumin 3.2 g/dL (3.4-5.0); Bilirubin Total 0.4 mg/dL (0.2-1.0); Magnesium 2.2 mg/dL (1.8-2.4); Potassium 4.2 mmol/L (3.5-5.1); Protein, Total 6.8 g/dL (6.4-8.2)
--- NOTE | 2020-08-05 08:37 | RAD REPORT ---
EXAM DESCRIPTION: US - Renal Ultrasound-Complete - 08/05/2020 8:01 am CLINICAL HISTORY: L abdominal / flank pain, h/o kidney stones COMPARISON: Stone Protocol dated 08/04/2020; Abdomen Pelvis W Contrast dated 08/08/2019 FINDINGS: The right kidney measures 9.6 x 4.0 x 4.3 cm. The left kidney measures 9.4 x 5.1 x 3.7 ce ntimeter. Renal cortical thickness and echogenicity are normal. No hydronephrosis or suspicious renal mass. Punctate echogenic foci are seen corresponding to the calyx or pyramid calculi on the CT [place] [id number]. An additional small 3 mm echogenic focus is seen along the subcapsular superolateral right k idney. This does not have a noncontrast CT correlate. Small angiomyolipoma is possible. Finding is no t regarded as significant. Partially filled urinary bladder shows no gross abnormality. IMPRESSION: No hydronephrosis or suspicious renal mass. No other significant findings.
[2020-08-05] MEDS: CIPROFLOXACIN 400mg IV 400 MG/200 ML BAG IV SCH (08:38)
[2020-08-05] MEDS: GABAPENTIN 300 MG CAP PO SCH (08:38)
[2020-08-05] MEDS: DONEPEZIL HCL 5 MG TAB PO SCH (08:39)
[2020-08-05] MEDS ORDERED: LIDOCAINE 4% PATCH TOP SCH (09:00)
[2020-08-05] MEDS ORDERED: DULOXETINE 20 MG CAP PO SCH ×2 (09:00)
[2020-08-05 12:33] VITALS: O2SAT 95
[2020-08-05 17:26] VITALS: BP 120/61; TEMP 98
--- NOTE | 2020-08-05 22:57 | P.DS ---
Admission Date: 08/04/20 Discharge Date: 08/05/20 Disposition: ROUTINE DISCHARGE Discharge Condition: GOOD Reason for Admission: Sigmoid diverticulitis Procedures: Renal U/S (08/05):: No hydronephrosis or suspicious renal mass. No other significant findings. CT Abd (08/05): Mild to moderate sigmoid diverticulitis. Bilateral small nonobstructing renal calculi Problem List: Sigmoid diverticulitis UTI, cystitis HTN Anxiety h/o kidney stones Gout Dementia GERD Neuropathy Brief History of Present Illness: 70yo F, PMH: HTN, Dementia, Anxiety, kidney stones, Gout, who presents to ED due to 3-4 days of LLQ pain. Pain is 7/10 at worst, radiates to back, feels like "labor pains". +nausea, no vomiting. no change in bowel habits, last had normal BM yesterday. Decreased PO intake as well. Denies fever/chills at home. She reports prior diverticulitis but "never this bad". She otherwise reports being in her usual state of health up until this event. Workup in ED concerning for sigmoid diverticulitis noted on CT. labwork rather unremarkable. Vitals stable. Patient with persistent pain despite pain medication in the ED. Hospital Course: On further discussion, patient also reported some increased urinary frequency. A UA was obtained and concerning for UTI. She was treated for her sigmoid diverticulitis with Cipro & flagyl, which would cover most UTIs as well. She has significant improvement during her hospitalization. She did initially have some slight worsening of pain in her left flank on the morning of discharge, however this significant improved and nearly resolved. She also reported she believes she passed a kidney stone while urinating on the morning of discharge as well. She was able to tolerate a mild diet, reported minimal discomfort, and was wanting to go home. She was discharged with levaquin & flagyl x 10 days. Her urine culture was pending at time of discharge, but her symptoms had resolved. She was advised to f/u with PCP in the next week and she reported already having an appointment for next week set up. Vital Signs/Physical Exam: Temp Pulse Resp BP Pulse Ox 98.0 F 73 18 120/61 94 08/05/20 16:00 08/05/20 16:00 08/05/20 16:00 08/05/20 16:00 08/05/20 16:00 General: Alert, In no apparent distress, Oriented x3 HEENT: Sclerae nonicteric Respiratory: Clear to auscultation bilaterally Cardiovascular: No edema, Regular rate/rhythm Gastrointestinal: Soft and benign, Non-distended, No tenderness Musculoskeletal: Tenderness (mild tenderness to light palpation in L posterior a few inches above SI joint. Pain at same location with patient just moving side to side) Integumentary: No rashes Neurological: Normal speech, Normal affect Laboratory Data at Discharge: WBC 7.3 K/uL (4.3-10.9) D 08/05/20 05:07 Hgb 11.0 g/dL (12.0-15.0) L 08/05/20 05:07 Hct 33.5 % (36.0-45.0) L 08/05/20 05:07 Plt Count 229 K/uL (152-406) 08/05/20 05:07 Sodium 141 mmol/L (136-145) 08/05/20 05:07 Potassium 4.2 mmol/L (3.5-5.1) 08/05/20 05:07 BUN 15 mg/dL (7-18) 08/05/20 05:07 Creatinine 0.88 mg/dL (0.55-1.3) 08/05/20 05:07 Glucose 104 mg/dL (74-106) 08/05/20 05:07 Magnesium 2.2 mg/dL (1.8-2.4) 08/05/20 05:07 Total Bilirubin 0.4 mg/dL (0.2-1.0) 08/05/20 05:07 AST 30 U/L (15-37) 08/05/20 05:07 ALT 25 U/L (12-78) 08/05/20 05:07 Alkaline Phosphatase 103 U/L (45-117) 08/05/20 05:07 Lipase 98 U/L (73-393) 08/04/20 12:25 Home Medications: Amlodipine Besylate 5 mg PO DAILY 08/04/20 Donepezil HCl 5 mg PO BID 08/04/20 Duloxetine HCl 20 mg PO DAILY 08/04/20 Furosemide 40 mg PO DAILY 08/04/20 Gabapentin 600 mg PO BID 08/04/20 Omeprazole [Prilosec] 40 mg PO [id number] 08/04/20 Pravastatin Sodium 20 mg PO BEDTIME 08/04/20 carvediloL [Carvedilol] 6.25 mg PO BID 6AM 6PM 08/04/20 Tramadol HCl [Ultram] 50 mg PO Q8HR PRN #10 tablet 08/05/20 levoFLOXacin [Levaquin] 750 mg PO DAILY 10 Days #10 tab 08/05/20 metroNIDAZOLE [Flagyl] 500 mg PO Q8H 10 Days #30 tablet 08/05/20 New Medications: Tramadol HCl [Ultram] 50 mg PO Q8HR PRN #10 tablet PRN Reason: Pain Scale 5-7 (Moderate) metroNIDAZOLE [Flagyl] 500 mg PO Q8H 10 Days #30 tablet levoFLOXacin [Levaquin] 750 mg PO DAILY 10 Days #10 tab Patient Discharge Instructions: you had acute sigmoid diverticulitis and a UTI. You are discharged with 2 antibiotics. Please follow up with your PCP within 1 week. Do not take your lasix until your diet has improved and you are staying adequately hydrated. Diet: [place] Activity: Ad zunilda Followup: Bo Hernandez, [Primary Care Provider] - Time spent managing pt's care (in minutes): 40
== END 2020-08-05 18:29 | disposition home or self-care (01) ==
LOC: ER 11:10 → ERHOLD 14:57 → 2ND 16:09
PROVIDERS: ADMIT Hospitalist; ATTEND Hospitalist
DX: K57.32 Diverticulitis of large intestine without perforation or abscess without bleeding (principal); N30.90 Cystitis, unspecified without hematuria; I10 Essential (primary) hypertension; F41.9 Anxiety disorder, unspecified; M10.9 Gout, unspecified; Z20.822 Contact with and (suspected) exposure to COVID-19; F03.90 Unspecified dementia, unspecified severity, without behavioral disturbance, psychotic disturbance, mood disturbance, and anxiety; K21.9 Gastro-esophageal reflux disease without esophagitis; G62.9 Polyneuropathy, unspecified; Z87.442 Personal history of urinary calculi
CPT/HCPCS: 96365; 96367; 96361; 87088; 85025 ×2; 87086; 80048; 36415; 83735; 80076; 87077; 87186; 83690; 80053; 76377; 74176; 76770; 94760 ×2; 96375; 99285; U0003; J7040; J7030 ×2; J2405; J0744 ×3; G0378 ×3; 81003; 81015

== ENCOUNTER 2020-08-15 08:21 | Observation (INO) | payer OTHER ==
--- OUTSIDE RECORDS SUMMARY | 2020-08-15 08:23 | XMS REPORT | Continuity of Care Document ---
:1950 Author Organization [facility] t Address [address] [place] [address] Care Team Providers Name Role Phone Lala [...] [facility] Syncope Syncope Disease [facility] Delusion [facility] Disease [facility] Anxiety Anxiety Disease [facility] 00 [place] Visual Visual Disease Active [facility] hallucinat hallucinat He alth ions ions Allergies, Adverse Reactions, Alerts This patient has no known allergies or adverse reactions. Social History Social Habit Start Date Stop Date Quantity Comments Source Sex Assigned At [facility] Alcohol intake 2016-04-06 2016-04-06 Current [facility] es - 00:00:00 00:00:00 non-drinker of Medical Ce nter alcohol (finding) Smoking Status Start Date Stop Date [facility] [place] Medications Ordered Filled Start Stop Current Ordering Indication Dosage Frequency Signature Comments Components Source Medication Medication Date Date Medication? Clinician (SIG) Name Name Ferrous Ferrous Yes Bo [address] Sulfate Sulfate 04-07 [facility] - 00:[facility]: [facility] 00 [facility] ent [facility] metoprolol Yes 100mg QD Take 100 Cade rris succinate 9-08 mg by Cryptonator (TOPROL XL) 16:03: mouth 100 mg 02 daily. extended release tablet metoprolol Yes 100mg Q.5D Take [address] (LOPRESSOR) 9-08 mg by [facility] - 100 MG 05:21: mouth 2 Medical tablet 37 (two) Center times daily. omeprazole Yes 20mg QD Take [address] (PRILOSEC) 9-08 by mouth [facility] - 20 MG 05:21: daily. Medical capsule 37 [place] ALPRAZolam Yes .25mg Take 0.[address] (XANAX) 9-08 mg by [facility] - 0.25 MG 05:21: mouth 3 Medical tablet 37 (three) Center times daily as needed for Anxiety. sertraline Yes MDD (major 25mg Take 1 [facility] (ZOLOFT) 25 08 depressive tablet by Cryptonator mg tablet 00:00: disorder), mouth at 00 recurrent bedtime episode, nightly. mild Carvedilol Carvedilol Yes Bo [address] [facility] with food [facility] Amlodipine Amlodipine Yes Bo [address] [facility] Besylate Besylate [facility] Zolpidem Zolpidem Yes Bo [address] Tartrate Tartrate Hernandez at bedtime [facility] - PRN [facility]ics Gabapentin Gabapentin Yes Bo [address] [facility] Hernandez [facility] Belsomra Belsomra Yes Bo [address] Hernandez at bedtime [facility] - as needed [facility] Pravastatin Pravastatin Yes Bo [address] Sodium Sodium Hernandez [facility] Omeprazole Omeprazole Yes Bo [address] [facility] Hernandez 30 minutes [facility] - before [facility] morning l meal [facility] Procedures This patient has no known procedures. Plan of Care Planned Activity Planned Date Details Comments Source Future Scheduled Test 2020-04-30 IMM Influenza Seasonal [facility] 00:00:00 Apr to September (>/= 19 yrs) [code = IMM Influenza Seasonal Apr to September (>/= 19 yrs)] Future Scheduled Test 2015 IMM Pneumococcal Age 65 [facility] 00:00:00 and Up [code = IMM Pneumococcal Age 65 and Up] Future Scheduled Test 2000 Screening for malignant [facility] 00:00:00 neoplasm of colon (procedure) [code = 043362308] Future Scheduled Test 1990 Breast Cancer Scrn [facility] 00:00:00 (Yearly) [code = Breast Cancer Scrn (Yearly)] Encounters Start End Encounter Admission Attending Care Care Encounter Source Date/Time Date/Time Type Type Clinicians Facility Department ID 2020-08-12 2020-08-12 Outpatient [facility] [id number] [facility] 2020-08-10 2020-08-10 Outpatient [facility] [id number] [facility] 2020-08-06 2020-08-06 Outpatient [facility] [id number] [facility] 2020-07-28 2020-07-28 Orders Doctor CARTAGENA [id number] 00:00:00 00:00:00 Only Unassigned, STEPHANIE [id number] [facility] [id number] 2020-07-16 2020-07-16 Orders Doctor CARTAGENA [id number] 00:00:00 00:00:00 Only Unassigned, STEPHANIE [id number] [facility] [id number] 2020-07-10 2020-07-10 Outpatient [facility] [id number] [facility] 2020-06-29 2020-06-29 [facility] [id number] [facility] ent Clinics 2020-06-08 2020-06-08 Outpatient [facility] [id number] [facility] 2020-05-28 2020-05-28 Transition Mauro Pendleton [id number] 00:00:00 00:00:00 of Care Manuelito Schmidy [id number] Micheal [id number] 2020-05-26 2020-05-27 Emergency Eduardo Bridges [facility] [id number]. [id number] 12:52:00 14:03:00 Raphael Cordova [id number] [place] [id number] [place] [id number] 2020-05-27 2020-05-27 Telephone Sean [facility] [id number] 00:00:00 00:00:00 Raji Hanson [id number] [place] [id number] [id number] [facility] 2020-04-07 2020-04-07 [facility] [id number] 09:10:00 09:10:00 [facility] s [facility] 2020-03-30 2020-03-30 [facility] [id number] 09:24:00 09:24:[address] - [address] [facility] Outpati ent Clinics 2020-03-24 2020-03-24 [facility] [id number] 14:30:00 14:30:00 [facility] 2020-03-24 2020-03-24 Outpatient [facility] [id number] [facility]00 [facility] 2020-03-23 2020-03-23 [facility] [id number] 10:32:00 10:32:00 [place] [email or web address] s - Drive [facility] Medicine Outpati ent Clinics 2020-03-05 2020-03-05 [facility] [id number] 15:11:00 15:11:00 [facility] Out[facility] Clinics 2020-03-05 2020-03-05 [facility] [id number] 14:06:00 14:06:00 [place] [employer] s - Drive [facility] Medicine Outpati ent Clinics 2020-03-05 2020-03-05 [facility] [id number] 11:21:00 11:21:[address] [facility] [address] - Drive [facility] Outpati ent Clinics 2020-03-03 2020-03-03 [facility] [id number] 13:30:00 13:30:[address] [facility] [address] - [address] [facility] Outpati ent Clinics 2020-02-10 2020-02-10 [facility] [id number] 13:30:00 13:30:00 [place] [email or web address] [address] - [address] [facility] Out[facility] ent Clinics Results This patient has no known results.
--- OUTSIDE RECORDS SUMMARY | 2020-08-15 08:23 | XMS REPORT | Clinical Summary ---
:1950 Author Organization [facility] Address [address] [place] [address] Support Name Relationship Address Phone Temi Chang Unavailable [address] [facility] [place] [address] Noel Diaz Unavailable [address] [facility] [phone] [facility] Team Providers Name Role Phone Lala Barnes [...] Not on file Results Not on fileafter 08/15/2019 Insurance Payer Benefit Plan / Subscriber ID Effective Phone Address T ype Group Dates CIGNA CIGNA [id number] 2015-Pre [facility] ALL sent Contracted Advance Directives For more information, please contact: [phone] Code Status Date Activated Date Inactivated Comments Full Code 04/06/2016 5:42 AM 04/07/2016 7:21 AM This code status was determined by: Patient
--- OUTSIDE RECORDS SUMMARY | 2020-08-15 08:23 | XMS REPORT | Clinical Summary ---
:1950 Author Organization [facility] Address [address] [place] [address] Care Team Providers Name Role Phone Unavailable [...] 19 yrs) 04/30/2020 Results Not on fileafter 08/15/2019 Insurance Payer Benefit Plan / Subscriber ID Effective Dates Phone Addre ss Type Group [employer] [id number] 2016-Presen [phone] [address] [place] [address]
--- OUTSIDE RECORDS SUMMARY | 2020-08-15 08:25 | XMS REPORT ---
:1950 Author Organization [facility] Address [address] [place] [address] Care Team Providers Name Role Phone Bo Hernandez Unavailable [phone] PROBLEMS Type Condition ICD9-CM [id number] Onset Condition SNOMED Code Notes Code Code Dates Status Problem Generalized F41.1 Active 74441995 anxiety disorder Problem Essential I10 Active 02840550 hypertension Problem GERD without K21.9 Active 696794409 esophagitis Problem Subclinical E03.9 Active 41045950 hypothyroidism Problem Mixed E78.2 Active 344579362 hyperlipidemia Problem Carpal tunnel G56.01 Active 763832680581303 syndrome of right wrist Problem Current moderate F32.1 Active 15113116 episode of major depressive disorder without prior episode Problem Peripheral G62.9 Active 93713123 polyneuropathy Problem Insomnia, G47.00 Active 731811102 unspecified type Problem Iron deficiency D50.9 Active 49228055 anemia, unspecified iron deficiency anemia type ALLERGIES No Known Allergies ENCOUNTERS from 1950 to 2020-08-06 Encounter Location Date Provider Diagnosis [facility] [address], [place] [address] IMMUNIZATIONS No Information SOCIAL HISTORY Tobacco Use: Social History Observation Description Date Details (start date - stop date) Never Smoker Sex Assigned At : Social History Observation Description Sex Assigned At Unknown PHQ9 Question Answer Notes Little interest or pleasure in doing things Several days Feeling down, depressed, or hopeless Several days Trouble falling or staying asleep or sleeping too much Sever al days Feeling tired or having little energy Several days Poor appetite or overeating Several days Feeling bad about yourself, or that you are a failure, or knapp ve Several days let yourself or your family down Trouble concentrating on things, such as reading the newspap er Not at all or watching television Moving or speaking so slowly that other people could have No t at all noticed; or the opposite, being so fidgety or restless that you have been moving around a lot more than usual Total Score 6 Interpretation Mild Depression Thoughts that you would be better off or of hurting Not at all yourself in some way Alcohol Screen Question Answer Notes Did you have a drink containing alcohol in the past year? No Points 0 Interpretation Negative Tobacco Use/Smoking Question Answer Notes Are you a never smoker Additional Findings: Tobacco Non-User Current non-smoker REASON FOR REFERRAL No Information VITAL SIGNS No information MEDICATIONS Medication SIG (Take, Route, Notes Start Date End Date Status Frequency, Duration) Pravastatin Sodium 20 MG 1 tablet Orally Once a Active day for 90 Zolpidem Tartrate 5 MG 1 tablet at bedtime PRN Active Orally Once a day PRN Insomnia for 30 days Ferrous Sulfate 325 (65 Fe) 1 tablet Orally BID for Active MG 30 day(s) Furosemide 20 MG 1 tablet Orally Once a Active day for 30 Amlodipine Besylate 5 MG 1 tablet Orally Once a Active day for 90 Omeprazole 40 MG 1 capsule 30 minutes Active before morning meal Orally Once a day for 90 Carvedilol 6.25 MG 1 tablet with food Orally Active Twice a day for 30 Gabapentin 600 MG 1 tablet Orally TID for Active 90 days PROCEDURES No Information RESULTS No Results REASON FOR VISIT Hospital F/U + TCM MEDICAL (GENERAL) HISTORY Type Description Date Medical History insomnia Medical History HTN Medical History HLD Surgical History Hysterectomy-bleeding Surgical History Gallbladder Surgical History Bladder lift Surgical History left [facility] Goals Section No Information Health Concerns No Information MEDICAL EQUIPMENT No Information MENTAL STATUS No Information FUNCTIONAL STATUS No Information ASSESSMENTS No Information PLAN OF TREATMENT Medication Medication Name Sig Start Date Stop Date Pravastatin Sodium 20 MG 1 tablet Orally Once a day for 90 Omeprazole 40 MG 1 capsule 30 minutes before morning meal Orally Once a day for 90 Carvedilol 6.25 MG 1 tablet with food Orally Twice a day for 30 Amlodipine Besylate 5 MG 1 tablet Orally Once a day for 90 Zolpidem Tartrate 5 MG 1 tablet at bedtime PRN Orally Once a day PRN Insomnia for 30 days Ferrous Sulfate 325 (65 Fe) MG 1 tablet Orally BID for 30 day(s) Furosemide 20 MG 1 tablet Orally Once a day for 30 Gabapentin 600 MG 1 tablet Orally TID for 90 days Next Appt Details Provider Name:Bo Hernandez, 2020-08-10 09:50:00 AM, [address], [place], [address], Insurance Providers Payer Name Payer Payer Insured Patient Coverage Coverage End Address Phone Name Relationship to Start Date Edgar e Insured [employer] [phone] Mihir Garland self [address] [facility] [phone] [phone] [place] Replace [phone]
--- OUTSIDE RECORDS SUMMARY | 2020-08-15 08:26 | XMS REPORT ---
:1950 Author Organization [facility] Address [address] [place] [address] Care Team Providers Name Role Phone David Bo Unavailable [phone] PROBLEMS Type Condition ICD9-CM [id number] Onset Condition SNOMED Code Notes Code Code Dates Status Problem Mixed E78.2 Active 817477412 hyperlipidemia Problem Generalized F41.1 Active 84264431 anxiety disorder Problem Essential I10 Active 41652618 hypertension Problem Current moderate F32.1 Active 80105539 episode of major depressive disorder without prior episode Problem Sigmoid K57.32 Active 996447541 diverticulitis Problem Insomnia, G47.00 Active 028024511 unspecified type Problem Other chronic G89.29 Active 03925105 pain Problem Peripheral G62.9 Active 62144727 polyneuropathy Problem GERD without K21.9 Active 029102390 esophagitis Problem Iron deficiency D50.9 Active 71444684 anemia, unspecified iron deficiency anemia type Problem Subclinical E03.9 Active 31394781 hypothyroidism Problem Carpal tunnel G56.01 Active 367699662798602 syndrome of right wrist ALLERGIES No Known Allergies ENCOUNTERS from 1950 to 2020-08-13 Encounter Location Date Provider Diagnosis [facility] [address], [place] [address] IMMUNIZATIONS No Information SOCIAL HISTORY Tobacco Use: [...] Start Date End Date Status Frequency, Duration) Furosemide 20 MG 1 tablet Orally Once a Active day for 30 days Gabapentin 600 MG 1 tablet Orally TID for Active 90 days Pravastatin Sodium 20 MG 1 tablet Orally Once a Active day for 90 days Carvedilol 6.25 MG 1 tablet with food Active Orally Twice a day for 30 Omeprazole 40 MG 1 capsule 30 minutes Active before morning meal Orally Once a day for 90 days Zolpidem Tartrate 10 MG 1 tablet at bedtime as Jul, 1 Active needed Orally Once a day for 30 days Amlodipine Besylate 5 MG 1 tablet Orally Once a Active day for 90 days Carvedilol 6.25 MG 1 tablet with food Active Orally Twice a day Ferrous Sulfate 325 (65 1 tablet Orally BID for Active Fe) MG 30 day(s) PROCEDURES No Information RESULTS No Results REASON FOR VISIT increased pain MEDICAL (GENERAL) HISTORY Type Description Date Medical [...] Medication Name Sig Start Date Stop Date Furosemide 20 MG 1 tablet Orally Once a day for 30 days Amlodipine Besylate 5 MG 1 tablet Orally Once a day for 90 days Carvedilol 6.25 MG 1 tablet with food Orally Twice a day Zolpidem Tartrate 10 MG 1 tablet at bedtime as needed Orally Jul, Once a day for 30 days Omeprazole 40 MG 1 capsule 30 minutes before morning meal Orally Once a day for 90 days Pravastatin Sodium 20 MG 1 tablet Orally Once a day for 90 days Gabapentin 600 MG 1 tablet Orally TID for 90 days Next Appt Details Provider Name:Bo Ed Hernandez, 2020-10-02 09:45:00 AM, [address], [address], [place], [address], Provider Name:Bo Hernandez, 2020-10-09 10:10:00 AM, [address], [address], [place], [address], Insurance Providers Payer Name Payer Payer Insured Patient Coverage Coverage End Address Phone Name Relationship to Start Date Edgar e Insured [employer] [phone] GillMihir roth self [address] [facility] [phone] [address] [place] Replace [phone]
--- OUTSIDE RECORDS SUMMARY | 2020-08-15 08:26 | XMS REPORT ---
:1950 Author Organization [facility] Address [address] [place] [place] [address] Care Team Providers Name Role Phone Bo Hernandez Unavailable [phone] PROBLEMS Type Condition ICD9-CM XZA21-BD Onset Condition SNOMED Code Notes Code Code Dates Status Problem Mixed E78.2 Active 429586351 hyperlipidemia Problem Generalized F41.1 Active 70392434 anxiety disorder Problem Essential I10 Active 51633337 hypertension Problem Current moderate F32.1 Active 11404978 episode of major depressive disorder without prior episode Problem Sigmoid K57.32 Active 809889716 diverticulitis Problem Insomnia, G47.00 Active 465235002 unspecified type Problem Other chronic G89.29 Active 88322970 pain Problem Peripheral G62.9 Active 85275437 polyneuropathy Problem GERD without K21.9 Active 290985502 esophagitis Problem Iron deficiency D50.9 Active 77233197 anemia, unspecified iron deficiency anemia type Problem Subclinical E03.9 Active 53637089 hypothyroidism Problem Carpal tunnel G56.01 Active [id number] syndrome of right wrist ALLERGIES No Known Allergies ENCOUNTERS from 1950 to 2020-08-10 Encounter Location Date Provider Diagnosis [facility] [address] [place] Jul, Bo Hernandez Sigmoid d [address] [place], [address] ; [place] [address] pain, left lat eral R10.9 ; Insomni a, unspecified typ e G47.00 ; Current moder ate episode of marcelo r depressive diso rder without prior e pisode F32.1 ; Subclin ical hypothyroidism E03.9 ; Tremor R25.1 ; Essential hyper tension I10 ; Iron defi ciency anemia, unspeci fied iron deficiency anemia type D50.9 ; Mi xed hyperlipidemia E78.2 ; Generalized anx iety disorder F41.1 ; Peripheral polyneuropathy G62.9 ; GERD without esophagitis K21 .9 ; History of fall ing Z91.81 ; Leg we akness, bilateral R29.8 98 ; Fatigue, unspec ified type R53.83 ; L ow back pain M54.5 and Other chronic pain G8 9.29 IMMUNIZATIONS No Information SOCIAL HISTORY Tobacco Use: [...] REASON FOR REFERRAL No Information VITAL SIGNS Height 62 in Jul, Weight 222.8 lbs Jul, Temperature 97.0 degrees Fahrenheit Jul, BMI 40.75 kg/m2 Jul, Oximetry 95 % Jul, Respiratory Rate 19 /min Jul, Blood pressure systolic 135 mm Hg Jul, Blood pressure diastolic 70 mm Hg Jul, MEDICATIONS Medication SIG (Take, Route, Notes Start [...] MG 1 tablet at bedtime as Jul, Active needed Orally Once a day for 30 days Amlodipine Besylate 5 MG 1 tablet Orally Once a Active day for 90 days Carvedilol 6.25 MG 1 tablet with food Active Orally Twice a day Ferrous Sulfate 325 (65 1 tablet Orally BID for Active Fe) MG 30 day(s) PROCEDURES No Information RESULTS No Results REASON FOR VISIT Hosp f/u TCM MEDICAL (GENERAL) HISTORY Type Description Date Medical History insomnia Medical History HTN Medical History HLD Surgical History Hysterectomy-bleeding Surgical History Gallbladder Surgical History Bladder lift Surgical History left [facility] Goals Section No Information Health Concerns No Information MEDICAL EQUIPMENT No Information MENTAL STATUS No Information FUNCTIONAL STATUS No Information ASSESSMENTS Encounter Date Diagnosis Assessment Notes Treatment Notes Treatm ent Clinical Notes Jul, Sigmoid Hospital course diverticulitis reviewed extensively (ICD-10 - K57.32) with patient. Education given. Answered all questions to the best my knowledge. Encouraged on being compliant with medication. Tolerating well. Gradual improvement noted.. Able to tolerate p.o. encouraged to follow-up with GI. Patient verbalized understanding. Jul, Abdominal pain, left Recent lateral (ICD-10 - hospitalization due R10.9) to sigmoid diverticulitis. Improvement of pain. Compliant with medication.. Encouraged to make appointment with GI. Jul, Insomnia, . Discussed unspecified type differential (ICD-10 - G47.00) diagnosis with patient. Education given. Discussed good sleep hygiene. Increased Ambien 10 mg and titrate as tolerated. Side effect panel discussed extensively. Stop Belsomra. Jul, Current moderate Stable without episode of major medication. depressive disorder Education given., -- without prior Depression episode (ICD-10 - Education: F32.1) Depression is a brain disease that makes you sad, but it is different than normal sadness. Depressed people feel down most of the time for at least 2 weeks. They also have at least one of these 2 symptoms: 1. They no longer enjoy or care about doing the things they used to like to do. 2. They feel sad, down, hopeless, or cranky most of the day, almost every day. It can also make you: lose or gain weight; sleep too much or too little; fell tired or like you have no energy; feel guilty or like you are worth nothing; forget things or feel confused; and think about or suicide. Medication and/or seeing a counselor (such as a psychiatrist, psychologist, nurse or director of social services) may be necessary to treat depression. Both treatments take time to work. If you ever feel like you might hurt yourself or some else, then call your doctor or call 911 or go to the ER. Jul, Subclinical Discussed DDX. hypothyroidism Education given. (ICD-10 - E03.9) Will monitor. Jul, Tremor (ICD-10 - . Discussed R25.1) differential diagnosis patient. Education given. Will refer to neurology for further evaluation management. Appointment scheduled for tomorrow Jul, Essential . Intermittent hypertension (ICD-10 control. Encourage - I10) patient to monitor at home and bring log. , DASH Diet discussed. Instructed to measure BP at home and bring in log to f/u appt. Instructions and logs given. Education given. , HTN Education This is a condition that puts at risk for heart attack, stroke, and kidney disease. Lifestyle modification, low fat/low salt diet, exercise, low alcohol intake and medication is utilized to help control your BP. Untreated HTN increases the strain on the heart and arteries, eventually causing organ damage.Normal BP is less than 140/90. High BP is greater than 140/90. If your BP is not controlled, call your doctor. Medication may need to be adjusted and/or added. Compliance with medication is vital. If you have chest pain, shortness of breath, severe nausea/vomiting, fatigue, and other symptoms, you will need to contact your doctor or go to the ER immediately to address. Jul, Iron deficiency Start iron anemia, unspecified supplement. iron deficiency Asymptomatic at this anemia type (ICD-10 time. Education - D50.9) given. If unchanged or worsen will refer to hematology. Discussed differential diagnosis. Recent colonoscopy per patient. Referral to hematology. Jul, Mixed hyperlipidemia . Stable with (ICD-10 - E78.2) current regimen. Refill given. Side effect panel discussed. , Hyperlipidemia Education: Hyperlipidemia refers to increased levels of lipids(fats) in the blood, including cholesterol and triglycerides. This can significantly increase your risk of developing coronary artery disease and peripheral artery disease. This can cause chest pain, heart attack, stroke, and fatigue. Treatment is recommended to decrease your risk. Treatment includes: lifestyle modification, low salt/low fat diet, exercise, tobacco cessation, low alcohol intake and sometimes medication. Blood tests (TC,TG, HDL, LDL) are utilized to determine treatment regimens. TC(Total cholesterol) should be below 200. TG(Total Triglycerides) should be below 150. HDL(Good cholesterol) should be above 40. LDL(Bad Cholesterol) should be below 130(if you have one risk factor) or less than 100( if you have more than one risk factor or have DM/CAD/PVD). Compliance with medication and treatment is vital. If you have questions, talk to your doctor. Jul, Generalized anxiety -- Anxiety disorder (ICD-10 - Education: Anxiety F41.1) is a feeling of anxiousness or nervousness. Being extremely anxious or worried on most days for 6 months or longer is not normal. This is a type of anxiety disorder. This disorder can make it hard to do everyday tasks. Other types of anxiety include: post traumatic stress disorder, panic disorder, and phobias. Symptoms of anxiety may include: feeling worried or on the edge, trouble sleeping, or forgetting things. Feelings of stomach aches or chest tightness is another common symptom. Medicine, exercise, and other treatments like counseling, talk therapy, yoga, and massages maybe necessary to treat this disorder. Jul, Peripheral . Increase to 3 polyneuropathy times daily. Side (ICD-10 - G62.9) effect panel discussed. Education given Jul, GERD without . Discussed esophagitis (ICD-10 long-term impact of - K21.9) PPI usage. Education given. , We have discussed the pathophysiology of reflux disease and we discussed lifestyle modifications to avoid reflux that include elevation head of the bed, avoid alcohol, avoid caffeine, avoid maintenance, avoid tight clothing, avoid eating within 3-4 hours before bedtime, and avoiding smoking. Jul, History of falling . Referral to (ICD-10 - Z91.81) physical therapy Jul, Leg weakness, . Discussed bilateral (ICD-10 - differential R29.898) diagnosis with patient peer education given. Referral to physical therapy for strength and stability. Evaluate for DME. Gait training. Jul, Fatigue, unspecified .education given. type (ICD-10 - R53.83) Jul, Low back pain .Affecting ADLs. (ICD-10 - M54.5) Referral to pain management for further evaluation management. Jul, Other chronic pain (ICD-10 - G89.29) Jul, Other -- Medication reviewed and updated. -- Dietary and Lifestyle modifications addressed regarding diet, exercise and weight managemen t. -- Treatment options, risks and benefits, side effects reviewed in detail. -- Advised on signs/symptoms to monitor and when to call clinic and/or visit the nearest ER. Patient verbalized understanding and agreeable with plan. PLAN OF TREATMENT Medication Medication Name Sig [...] 1 tablet Orally TID for 90 days Treatment Notes Assessment Notes Clinical Notes Leg weakness, bilateral . Discussed differential diagnosis with patient peer education given. Referral to physical therapy for strength and stability. Evaluate for DME. Gait training. Sigmoid diverticulitis Hospital course reviewed extensively with patient. Education given. Answered all questions to the best my knowledge. Encouraged on being compliant with medication. Tolerating well. Gradual improvement noted.. Able to tolerate p.o. encouraged to follow-up with GI. Patient verbalized understanding. History of falling . Referral to physical therapy Abdominal pain, left lateral Recent hospitalization due to sigmoid diverticulitis. Improvement of pain. Compliant with medication.. Encouraged to make appointment with GI. Low back pain .Affecting ADLs. Referral to pain management for further evaluation management. Insomnia, unspecified type . Discussed differential diagnos is with patient. Education given. Discussed good sleep hygiene. Increased Ambien 10 mg and titrate as tolerated. Side effect panel discussed extensively. Stop Belsomra. Fatigue, unspecified type .education given. Current moderate episode of major Stable without medication. depressive disorder without prior Education given., -- Depre ssion episode Education: Depression is a brain disease that makes you sad, but it is different than normal sadness. Depressed people feel down most of the time for at least 2 weeks. They also have at least one of these 2 symptoms: 1. They no longer enjoy or care about doing the things they used to like to do. 2. They feel sad, down, hopeless, or cranky most of the day, almost every day. It can also make you: lose or gain weight; sleep too much or too little; fell tired or like you have no energy; feel guilty or like you are worth nothing; forget things or feel confused; and think about or suicide. Medication and/or seeing a counselor (such as a psychiatrist, psychologist, nurse or director of social services) may be necessary to treat depression. Both treatments take time to work. If you ever feel like you might hurt yourself or some else, then call your doctor or call 911 or go to the ER. Subclinical hypothyroidism Discussed DDX. Education given. Will monitor. Tremor . Discussed differential diagnosis patient. Education given. Will refer to neurology for further evaluation management. Appointment scheduled for tomorrow Essential hypertension . Intermittent control. Encourage patient to monitor at home and bring log. , DASH Diet discussed. Instructed to measure BP at home and bring in log to f/u appt. Instructions and logs given. Education given. , HTN Education This is a condition that puts at risk for heart attack, stroke, and kidney disease. Lifestyle modification, low fat/low salt diet, exercise, low alcohol intake and medication is utilized to help control your BP. Untreated HTN increases the strain on the heart and arteries, eventually causing organ damage.Normal BP is less than 140/90. High BP is greater than 140/90. If your BP is not controlled, call your doctor. Medication may need to be adjusted and/or added. Compliance with medication is vital. If you have chest pain, shortness of breath, severe nausea/vomiting, fatigue, and other symptoms, you will need to contact your doctor or go to the ER immediately to address. GERD without esophagitis . Discussed long-term impact of PPI usage. Education given. , We have discussed the pathophysiology of reflux disease and we discussed lifestyle modifications to avoid reflux that include elevation head of the bed, avoid alcohol, avoid caffeine, avoid maintenance, avoid tight clothing, avoid eating within 3-4 hours before bedtime, and avoiding smoking. Peripheral polyneuropathy . Increase to 3 times daily. Emil e effect panel discussed. Education given Iron deficiency anemia, unspecified Start iron supplement. iron deficiency anemia type Asymptomatic at this time. Education given. If unchanged or worsen will refer to hematology. Discussed differential diagnosis. Recent colonoscopy per patient. Referral to hematology. Mixed hyperlipidemia . Stable with current regimen. Refill given. Side effect panel discussed. , Hyperlipidemia Education: Hyperlipidemia refers to increased levels of lipids(fats) in the blood, including cholesterol and triglycerides. This can significantly increase your risk of developing coronary artery disease and peripheral artery disease. This can cause chest pain, heart attack, stroke, and fatigue. Treatment is recommended to decrease your risk. Treatment includes: lifestyle modification, low salt/low fat diet, exercise, tobacco cessation, low alcohol intake and sometimes medication. Blood tests (TC,TG, HDL, LDL) are utilized to determine treatment regimens. TC(Total cholesterol) should be below 200. TG(Total Triglycerides) should be below 150. HDL(Good cholesterol) should be above 40. LDL(Bad Cholesterol) should be below 130(if you have one risk factor) or less than 100( if you have more than one risk factor or have DM/CAD/PVD). Compliance with medication and treatment is vital. If you have questions, talk to your doctor. Generalized anxiety disorder -- Anxiety Education: Anxiety i s a feeling of anxiousness or nervousness. Being extremely anxious or worried on most days for 6 months or longer is not normal. This is a type of anxiety disorder. This disorder can make it hard to do everyday tasks. Other types of anxiety include: post traumatic stress disorder, panic disorder, and phobias. Symptoms of anxiety may include: feeling worried or on the edge, trouble sleeping, or forgetting things. Feelings of stomach aches or chest tightness is another common symptom. Medicine, exercise, and other treatments like counseling, talk therapy, yoga, and massages maybe necessary to treat this disorder. Treatment Notes Test Name Order Date Lipid Panel With LDL/HDL Ratio 2020-08-10 Thyroid Panel With TSH 2020-08-10 Ferritin, Serum 2020-08-10 Hematopath Consultation, Smear 2020-08-10 Comp. Metabolic Panel (14) (CMP) 2020-08-10 CBC With Differential/Platelet 2020-08-10 Next Appt Details 2 Months + Labs 1 week Reason: Provider Name:Bo Hernandez, 2020-10-02 09:45:00 AM, [address], [address], [place], [address], Provider Name:Bo Hernandez, 2020-10-09 10:10:00 AM, [address], [address], [place], [address], Insurance Providers Payer Name Payer Payer Insured Patient Coverage Coverage End Address Phone Name Relationship to Start Date Edgar e Insured [employer] [phone]ihir [address] self [address] [facility] [id number] [place] Replace [phone]
[2020-08-15 08:55] LABS: Absolute Lymphocytes (CBC) 2.5 K/uL (0.7-4.9); Basophils % 0.5 % (0-1.3); Hematocrit 39.9 % (36.0-45.0); Lymphocytes % 27.1 % (15.3-44.8); MPV 7.6 fL (7.6-11.3); RBC Red Blood Cell Count 4.74 M/uL (3.86-4.86)
[2020-08-15 08:57] LABS: Protime INR 0.95
[2020-08-15 09:04] LABS: Potassium 3.9 mmol/L (3.5-5.1)
--- NOTE | 2020-08-15 09:26 | RAD REPORT ---
EXAM DESCRIPTION: CT - Head Brain Wo Cont - 08/15/2020 9:06 am CLINICAL HISTORY: NUMBNESS Headache, drowsiness COMPARISON: No comparisons TECHNIQUE: All CT scans are performed using dose optimization technique as appropriate and may inclu de automated exposure control or mA/KV adjustment according to patient size. FINDINGS: No intracranial hemorrhage, hydrocephalus or extra-axial fluid collection.Mild periventric ular and deep white matter chronic microvascular ischemic changes.No areas of brain edema or evidence of midline shift. The paranasal sinuses and mastoids are clear. The calvarium is intact. IMPRESSION: No acute intracranial abnormality.
--- NOTE | 2020-08-15 09:28 | RAD REPORT ---
EXAM DESCRIPTION: RAD - Chest Single View - 08/15/2020 9:08 am CLINICAL HISTORY: stroke workup Chest pain. COMPARISON: Chest Pa And Lat (2 Views) dated 06/13/2019; Chest Single View dated 04/24/2017; Chest Si ngle View dated 04/20/2017; CHEST SINGLE VIEW dated 12/06/2013 FINDINGS: Portable technique limits examination quality. The lungs are grossly clear. The heart is normal in size. No displaced fractures. IMPRESSION: No acute intrathoracic process suspected.
--- NOTE | 2020-08-15 09:28 | RAD REPORT ---
EXAM DESCRIPTION: CT - Head angio - 08/15/2020 9:05 am CLINICAL HISTORY: left sided weakness Headache, drowsiness COMPARISON: Head Brain Wo Cont dated 08/15/2020 TECHNIQUE: CT angiography of the head was performed with MIPs. All CT scans are performed using dose optimization technique as appropriate and may include automated exposure control or mA/KV adjustment according to patient size. FINDINGS: No evidence of aneurysm is detected. No flow-limiting stenosis or vascular malformation id entified. Antegrade flow is seen in the vertebral arteries. The vertebral arteries are codominant. Right-sided dominant vertebral artery noted. IMPRESSION: No significant flow abnormality is detected.
[2020-08-15 10:21] LABS: Blood Morphology Comment NOTED (NOT SEEN); Platelet Estimate ADEQ; White Blood Cell Scan OK (OK)
[2020-08-15 10:22] LABS: Anisocytosis 1+
--- NOTE | 2020-08-15 11:02 | EDPHYS ---
Physician Documentation [facility] Name: Lilian Garland Age: 70 yrs Sex: Female : 1950 Arrival Date: 08/15/2020 Time: 08:23 Bed 6 Private MD: ED Physician Saad Lizarraga HPI: 08/15 09:13 This 70 yrs old Female presents to ER via Wheelchair with complaints of kdr Numbness Of Arm, Numbness Of Face. 09:15 The patient presents to the emergency department with weakness of the left upper kdr extremity, that is mild, left lower extremity, that is mild. Onset: The symptoms/episode began/occurred acutely, last night, at 20:00. Context: occurred at home, occurred while the patient was at rest. Associated signs and symptoms: The patient has no apparent associated signs or symptoms. Severity of symptoms: At their worst the symptoms were mild moderate just prior to arrival, in the emergency department the symptoms are unchanged. Patient's baseline: Neuro: alert and fully oriented, Motor: no deficits, Ambulation: walks without assistance, Speech: normal for age, The patient has a previous history of TIA. Current symptoms: Slightly weak on the left. The patient has not experienced similar symptoms in the past. The patient has not recently seen a physician. Historical: - Allergies: 08:45 No Known Allergies; sv - Home Meds: 08:46 carvedilol 6.25 mg Oral tab 1 tab every 12 hours [Active]; amlodipine 5 mg tab 1 tab sv once daily [Active]; gabapentin 600 mg Oral tab 2 tab twice a day [Active]; omeprazole 40 mg Oral cpDR 1 cap once daily [Active]; pravastatin 20 mg Oral tab 1 tab once daily [Active]; donepezil 5 mg Oral TbDL 1 tab once daily [Active]; zolpidem 5 mg Oral tab nightly [Active]; - PMHx: 08:45 Gout; Anxiety; Depression; neuropathy; Hypertension; Chronic pain; Dementia; GERD; sv Kidney stones; - PSHx: 08:45 Hysterectomy; Cholecystectomy; Bladder suspension; Kidney stone removed; sv - Immunization history:: Adult Immunizations up to date. - Social history:: Smoking status: Patient denies any tobacco usage or history of. ROS: 09:15 Constitutional: Negative for fever, chills, and weight loss, Eyes: Negative for injury, kdr pain, redness, and discharge, ENT: Negative for injury, pain, and discharge, Neck: Negative for injury, pain, and swelling, Cardiovascular: Negative for chest pain, palpitations, and edema, Respiratory: Negative for shortness of breath, cough, wheezing, and pleuritic chest pain, Abdomen/GI: Negative for abdominal pain, nausea, vomiting, diarrhea, and constipation, Back: Negative for injury and pain, : Negative for injury, bleeding, discharge, and swelling, MS/Extremity: Negative for injury and deformity, Skin: Negative for injury, rash, and discoloration, Psych: Negative for depression, anxiety, suicide ideation, homicidal ideation, and hallucinations, Allergy/Immunology: Negative for hives, rash, and allergies, Endocrine: Negative for neck swelling, polydipsia, polyuria, polyphagia, and marked weight changes, Hematologic/Lymphatic: Negative for swollen nodes, abnormal bleeding, and unusual bruising. 09:15 Neuro: Positive for headache, weakness, of the left arm and left leg. Exam: 08:45 ECG was reviewed by the Attending Physician. kdr 09:15 Constitutional: This is a well developed, well nourished patient who is awake, alert, kdr and in no acute distress. Head/Face: Normocephalic, atraumatic. Eyes: Pupils equal round and reactive to light, extra-ocular motions intact. Lids and lashes normal. Conjunctiva and sclera are non-icteric and not injected. Cornea within normal limits. Periorbital areas with no swelling, redness, or edema. Neck: Trachea midline, no thyromegaly or masses palpated, and no cervical lymphadenopathy. Supple, full range of motion without nuchal rigidity, or vertebral point tenderness. No Meningismus. Chest/axilla: Normal chest wall appearance and motion. Nontender with no deformity. No lesions are appreciated. Cardiovascular: Regular rate and rhythm with a normal S1 and S2. No gallops, murmurs, or rubs. Normal PMI, no JVD. No pulse deficits. Respiratory: Lungs have equal breath sounds bilaterally, clear to auscultation and percussion. No rales, rhonchi or wheezes noted. No increased work of breathing, no retractions or nasal flaring. Abdomen/GI: Soft, non-tender, with normal bowel sounds. No distension or tympany. No guarding or rebound. No evidence of tenderness throughout. Back: No spinal tenderness. No costovertebral tenderness. Full range of motion. Skin: Warm, dry with normal turgor. Normal color with no rashes, no lesions, and no evidence of cellulitis. MS/ Extremity: Pulses equal, no cyanosis. Neurovascular intact. Full, normal range of motion. Psych: Awake, alert, with orientation to person, place and time. Behavior, mood, and affect are within normal limits. 09:15 Neuro: Orientation: appropriate for stated age, no acute changes, Mentation: appropriate for stated age, Motor: The patient is globally weak but more so on the left., The patient was poorly cooperative with the exam as she seemed consumed by fear. Vital Signs: 08:23 BP 142 / 80; Pulse 106; Resp 16; Pulse Ox 96% ; Weight 100.24 kg; Height 5 ft. 3 in. sv (160.02 cm); 09:30 BP 120 / 75; Pulse 81; Resp 16; Pulse Ox 95% on R/A; Pain 0/10; hb 10:30 BP 115 / 72; Pulse 78; Resp 16; Pulse Ox 95% on R/A; hb 11:30 BP 122 / 66; Pulse 93; Resp 16; Pulse Ox 97% on R/A; Pain 0/10; hb 08:23 Body Mass Index 39.15 (100.24 kg, 160.02 cm) sv NIH Stroke Scale Scores: 12:47 NIHSS Score: 2 hb MDM: 09:15 Data reviewed: vital signs, nurses notes, lab test result(s), EKG, radiologic studies. kdr Counseling: I had a detailed discussion with the patient and/or guardian regarding: the historical points, exam findings, and any diagnostic results supporting the discharge/admit diagnosis, lab results, radiology results, the need for outpatient follow up. 11:01 Patient medically screened. kdr 08/15 08:32 Order name: Basic Metabolic Panel; Complete Time: 10:05 sv 08/15 08:32 Order name: CBC with Diff; Complete Time: 11:57 sv 08/15 08:32 Order name: Protime (+inr); Complete Time: 10:05 sv 08/15 08:32 Order name: Ptt, Activated; Complete Time: 10:05 sv 08/15 10:21 Order name: CBC Smear Scan; Complete Time: 11:57 EDMS 08/15 11:58 Order name: Comprehensive Metabolic Panel EDMS 08/15 11:58 Order name: Comprehensive Metabolic Panel EDMS 08/15 11:58 Order name: Lipid Profile EDMS 08/15 11:58 Order name: Lipid Profile EDMS 08/15 11:58 Order name: Magnesium EDMS 08/15 11:58 Order name: Magnesium EDMS 08/15 11:58 Order name: Phosphorus EDMS 08/15 11:58 Order name: Phosphorus EDMS 08/15 11:58 Order name: Protime (+INR) EDMS 08/15 08:32 Order name: Stroke CXR 1 View; Complete Time: 10:05 sv 08/15 08:32 Order name: EKG; Complete Time: 08:33 sv 08/15 08:32 Order name: CT Head Brain wo Cont; Complete Time: 10:05 sv 08/15 08:43 Order name: CT Head Angio; Complete Time: 10:05 kdr 08/15 11:58 Order name: Protime (+INR) EDMS 08/15 11:58 Order name: PTT, Activated Partial Thromb EDMS 08/15 11:58 Order name: PTT, Activated Partial Thromb EDMS 08/15 11:59 Order name: Physical Therapy Consult EDNE 08/15 11:59 Order name: Speech Therapy Consult EDNE 08/15 11:59 Order name: NPO EDNE 08/15 11:59 Order name: NPO EDNE 08/15 11:59 Order name: NPO EDNE 08/15 11:59 Order name: Echo with Doppler EDNE 08/15 11:59 Order name: EKG Electrocardiogram EDNE 08/15 11:59 Order name: Stroke Protocol EDNE 08/15 11:59 Order name: Chest Pa And Lat (2 Views) EDMS 08/15 08:32 Order name: Accucheck; Complete Time: 08:43 sv 08/15 08:32 Order name: Cardiac monitoring; Complete Time: 08:43 sv 08/15 08:32 Order name: EKG - Nurse/Tech; Complete Time: 08:43 sv 08/15 08:32 Order name: IV Saline Lock; Complete Time: 08:44 sv 08/15 08:32 Order name: Labs collected and sent; Complete Time: 08:44 sv 08/15 08:32 Order name: NPO; Complete Time: 08:43 sv 08/15 08:32 Order name: O2 Per Protocol; Complete Time: 08:43 sv 08/15 08:32 Order name: O2 Sat Monitoring; Complete Time: 08:43 sv 08/15 08:32 Order name: Stroke Swallow Screen; Complete Time: 10:44 sv EC:45 Rate is 100 beats/min. Rhythm is regular, Normal Sinus Rhythm with No ectopy. QRS [place] kdr is Normal. Left axis deviation noted. [place] interval is normal. QRS interval is normal. QT interval is normal. Clinical impression: NSR w/ Non-specific ST/T Changes. Administered Medications: No medications were administered Disposition: 08/15/20 11:01 Hospitalization ordered by Sameer Patel for Observation. Preliminary diagnosis is Weakness - left sided. - Bed requested for Telemetry/MedSurg (observation). - Status is Observation. ph - Condition is Fair. - Problem is new. - Symptoms have improved. NIH Stroke Scale - NIH Stroke Score Date: 08/15/2020 Time: 12:47 Total Score = 2 1a. Level of Consciousness (LOC) - 0(Alert) 1b. Level of Consciousness (LOC) (Year \T\ Age) - 0(Both) 1c. LOC Commands (Open \T\ Closes Eyes/Deputy City Clerk) - 0(Both) 2. Best Gaze (Lateral Gaze Paresis) - 0(Normal) 3. Visual Field Loss - 0(No visual loss) 4. Facial Palsy - 0(Normal) 5a. Left Arm: Motor (10-second hold) - 0(No drift) 5b. Right Arm: Motor (10-second hold) - 0(No drift) 6a. Left Leg: Motor (5-second hold - always test supine) - 1(Drift) 6b. Right Leg: Motor (5-second hold - always test supine) - 0(No drift) 7. Limb Ataxia (finger/nose \T\ heel/hudson - test with eyes open) - 0(Absent) 8. Sensory Loss (pinprick arms/legs/face) - 1(Mild to moderate loss) 9. Best Language: Aphasia (description/naming/reading) - 0(No aphasia) 10. Dysarthria (speech clarity - read or repeat words) - 0(Normal) 11. Extinction and Inattention (visual/tactile/auditory/spatial/personal) - 0(No abnormality) Initials: hb Signatures: Dispatcher [employer] EDHelena Mcgregor, RN RN Alysha Gautam RN RN dw Saad Lizarraga MD MD [facility] Evette Gastelum RN RN Kathleen Thompson, YENY RN hb Corrections: (The following items were deleted from the chart) 12:45 11:01 Hospitalization Ordered by Sameer Patel MD for Observation. Preliminary dw diagnosis is Weakness - left sided. Bed requested for Telemetry/MedSurg (observation). Status is Observation. Condition is Fair. Problem is new. Symptoms have improved. kdr 13:29 12:45 08/15/2020 11:01 Hospitalization Ordered by Sameer Patel MD for ph Observation. Preliminary diagnosis is Weakness - left sided. Bed requested for Telemetry/MedSurg (observation). Status is Observation. Condition is Fair. Problem is new. Symptoms have improved. dw
--- NOTE | 2020-08-15 11:02 | ER ---
Nurse's Notes [facility] Name: Lilian Garland Age: 70 yrs Sex: Female : 1950 Arrival Date: 08/15/2020 Time: 08:23 Bed 6 Private MD: Diagnosis: Weakness-left sided Presentation: 08/15 08:23 Chief complaint: Patient states: yesterday didn't "feel well" c/o left sided weakness sv and numbness, unable to smile, and unable to walk right. Pt stated it started around 2000 last night, she called her daughter this morning around 0600 telling her she didn't feel good. Risk Assessment: Do you want to hurt yourself or someone else? Patient reports no desire to harm self or others. Onset of symptoms was August 14, 2020. 08:23 Method Of Arrival: Wheelchair sv 08:23 Acuity: JI 2 sv 09:30 Ebola Screen: No symptoms or risks identified at this time. Initial Sepsis Screen: Does hb the patient have a suspected source of infection?. Initial Sepsis Screen: Does the patient meet any 2 criteria? No. Patient's initial sepsis screen is negative. 12:42 Coronavirus screen: Client denies travel out of the [place] in the last 14 days. At this sv time, the client does not indicate any symptoms associated with coronavirus-19. The client reports previous COVID testing was negative. Date of collection: August 04, 2020. Historical: - Allergies: 08:45 No Known Allergies; sv - Home Meds: 08:46 carvedilol 6.25 mg Oral tab 1 tab every 12 hours [Active]; amlodipine 5 mg tab 1 tab sv once daily [Active]; gabapentin 600 mg Oral tab 2 tab twice a day [Active]; omeprazole 40 mg Oral cpDR 1 cap once daily [Active]; pravastatin 20 mg Oral tab 1 tab once daily [Active]; donepezil 5 mg Oral TbDL 1 tab once daily [Active]; zolpidem 5 mg Oral tab nightly [Active]; - PMHx: 08:45 Gout; Anxiety; Depression; neuropathy; Hypertension; Chronic pain; Dementia; GERD; sv Kidney stones; - PSHx: 08:45 Hysterectomy; Cholecystectomy; Bladder suspension; Kidney stone removed; sv - Immunization history:: Adult Immunizations up to date. - Social history:: Smoking status: Patient denies any tobacco usage or history of. Screenin:28 Abuse screen: Denies threats or abuse. Denies injuries from another. Nutritional hb screening: No deficits noted. Tuberculosis screening: No symptoms or risk factors identified. Fall Risk None identified. 09:40 Patient has been NPO before screening. The patient is alert, able to follow commands. hb The patient does not exhibit slurred or garbled speech The patient is not exhibiting difficulty speaking. The patient does not exhibit difficulty understanding words. The patient is able to swallow own secretions with no drooling or need for suction. Patient tolerated one teaspoon of water. No drooling, immediate coughing, gurgling, or clearing of the throat was noted. The patient tolerated 90mL of water. No drooling, immediate coughing, gurgling, or clearing of the throat was noted. The patient passed the bedside swallow screening. Oral medications may be given as ordered. Contact Physician for further diet orders. Assessment: 08:28 General: Appears in no apparent distress. Behavior is cooperative, crying. Pain: Denies hb pain. Neuro: Level of Consciousness is awake, alert, obeys commands, Oriented to person, place, time, situation. Cardiovascular: Capillary refill < 3 seconds Patient's skin is warm and dry. Respiratory: Respiratory effort is even, unlabored, Respiratory pattern is regular, symmetrical. GI: No signs and/or symptoms were reported involving the gastrointestinal system. : No signs and/or symptoms were reported regarding the genitourinary system. EENT: No signs and/or symptoms were reported regarding the EENT system. Derm: Skin is pink, warm \\T\\ dry. Musculoskeletal: No signs and/or symptoms reported regarding the musculoskeletal system. 08:32 Reassessment: Dr Lizarraga at bedside. sv 08:32 Reassessment: Received VO for stroke workup from Dr Lizarraga. sv 09:44 Reassessment: Patient appears in no apparent distress at this time. Patient and/or hb family updated on plan of care and expected duration. Pain level reassessed. Patient is alert, oriented x 3, equal unlabored respirations, skin warm/dry/pink. 10:30 Reassessment: Patient appears in no apparent distress at this time. Patient and/or hb family updated on plan of care and expected duration. Pain level reassessed. Patient is alert, oriented x 3, equal unlabored respirations, skin warm/dry/pink. 10:41 Reassessment: Dr Lizarraga awaiting a phone call back from Dr Quezada. sv 11:35 Reassessment: Patient appears in no apparent distress at this time. Patient and/or hb family updated on plan of care and expected duration. Pain level reassessed. Patient is alert, oriented x 3, equal unlabored respirations, skin warm/dry/pink. Vital Signs: 08:23 BP 142 / 80; Pulse 106; Resp 16; Pulse Ox 96% ; Weight 100.24 kg; Height 5 ft. 3 in. sv (160.02 cm); 09:30 BP 120 / 75; Pulse 81; Resp 16; Pulse Ox 95% on R/A; Pain 0/10; hb 10:30 BP 115 / 72; Pulse 78; Resp 16; Pulse Ox 95% on R/A; hb 11:30 BP 122 / 66; Pulse 93; Resp 16; Pulse Ox 97% on R/A; Pain 0/10; hb 08:23 Body Mass Index 39.15 (100.24 kg, 160.02 cm) sv NIH Stroke Scale Scores: 12:47 NIHSS Score: 2 hb ED Course: 08:23 Patient arrived in ED. rg4 08:23 Arm band placed on Patient placed in an exam room, on a stretcher. sv 08:28 Patient has correct armband on for positive identification. Bed in low position. Call hb light in reach. Side rails up X 1. 08:30 Saad Lizarraga MD is Attending Physician. kdr 08:36 Kathleen Thompson, YENY is Primary Nurse. hb 08:43 Initial lab(s) drawn, by il, sent to lab. Inserted saline lock: 20 gauge in right dh3 antecubital area, using aseptic technique. Blood collected. 08:44 Triage completed. sv 09:05 Stroke CXR 1 View In Process Unspecified. EDMS 09:05 CT Head Brain wo Cont In Process Unspecified. EDMS 09:05 CT Head Angio In Process Unspecified. EDMS 11:00 Sameer Patel MD is Hospitalizing Provider. kdr 12:25 Urine collected: clean catch specimen, clear. dh3 13:15 No provider procedures requiring assistance completed. Patient admitted, IV remains in hb place. Administered Medications: No medications were administered Outcome: 11:01 Decision to Hospitalize by Provider. kdr 13:15 Admitted to Tele accompanied by tech, via wheelchair. hb 13:15 Condition: stable 13:15 Instructed on the need for admit, Demonstrated understanding of instructions. hb 13:29 Patient left the ED. NIH Stroke Scale - NIH Stroke Score Date: 08/15/2020 Time: 12:47 Total Score = 2 1a. Level of Consciousness (LOC) - 0(Alert) 1b. Level of Consciousness (LOC) (Year \\T\\ Age) - 0(Both) 1c. LOC Commands (Open \\T\\ Closes Eyes/Electrotype Caster) - 0(Both) 2. Best Gaze (Lateral Gaze Paresis) - 0(Normal) 3. Visual Field Loss - 0(No visual loss) 4. Facial Palsy - 0(Normal) 5a. Left Arm: Motor (10-second hold) - 0(No drift) 5b. Right Arm: Motor (10-second hold) - 0(No drift) 6a. Left Leg: Motor (5-second hold - always test supine) - 1(Drift) 6b. Right Leg: Motor (5-second hold - always test supine) - 0(No drift) 7. Limb Ataxia (finger/nose \\T\\ heel/hudson - test with eyes open) - 0(Absent) 8. Sensory Loss (pinprick arms/legs/face) - 1(Mild to moderate loss) 9. Best Language: Aphasia (description/naming/reading) - 0(No aphasia) 10. Dysarthria (speech clarity - read or repeat words) - 0(Normal) 11. Extinction and Inattention (visual/tactile/auditory/spatial/personal) - 0(No abnormality) Initials: Signatures: Dispatcher [employer] EDHelena Mcgregor RN RN Saad Lizarraga MD MD [facility] Evette Gastelum RN RN Kathleen Thompson RN RN Pat Oviedo 4 Kimmie Lugo 3 Corrections: (The following items were deleted from the chart) 08:52 08:23 Chief complaint: Patient states: yesterday didn't "feel well" c/o left sv sided weakness and numbness, unable to smile. Pt stated it started around 1999 last night, she called her daughter this morning around 0600 telling her she didn't feel good. sv 12:48 08:35 NIHSS Score: 1 hb hb 08/16 13:15 IV discontinued, intact, bleeding controlled, No redness/swelling hb at site. hb 08/16 13:15 Discharged to home via wheelchair, with family, hb hb 08/16 13:15 Discharge instructions given to patient, family, Instructed on hb discharge instructions, follow up and referral plans. medication usage, Demonstrated understanding of instructions, follow-up care, medications, hb
[2020-08-15] MEDS ORDERED: ONDANSETRON 4 MG/2 ML VIAL IV PRN (11:55)
[2020-08-15] MEDS ORDERED: ACETAMINOPHEN 500 MG TAB PO PRN (11:55)
[2020-08-15 13:37] VITALS: O2SAT 97
[2020-08-15] MEDS: NA CHLORIDE 0.9% 1,000 ML IV SCH (14:00)
[2020-08-15 14:27] VITALS: BMI 39.1
[2020-08-15] MEDS ORDERED: HYDROCODONE/APAP 5/325 MG TAB PO PRN (16:49)
[2020-08-15] MEDS: GABAPENTIN 300 MG CAP PO SCH (20:04)
[2020-08-15] MEDS: DONEPEZIL HCL 5 MG TAB PO SCH (20:04)
[2020-08-15] MEDS: carvediloL 6.25 MG TAB PO SCH (20:05)
[2020-08-15] MEDS ORDERED: ZOLPIDEM TARTRATE 5 MG TABLET PO SCH (21:00)
[2020-08-16] MEDS: NA CHLORIDE 0.9% 1,000 ML IV SCH (01:48)
[2020-08-16] MEDS: MORPHINE 2 MG/ML SYR IV PRN ×2 (02:53→08:32)
[2020-08-16 05:49] LABS: Absolute Lymphocytes (CBC) 2.6 K/uL (0.7-4.9); Basophils % 0.3 % (0-1.3); Hematocrit 35.7 % (36.0-45.0); Lymphocytes % 34.2 % (15.3-44.8); MPV 7.6 fL (7.6-11.3); RBC Red Blood Cell Count 4.23 M/uL (3.86-4.86)
[2020-08-16 05:50] VITALS: BP 142/65
[2020-08-16 05:51] LABS: Protime INR 1.02
[2020-08-16] MEDS ORDERED: PANTOPRAZOLE 40MG TABLET PO SCH (06:00)
[2020-08-16 06:05] LABS: Bilirubin Total 0.3 mg/dL (0.2-1.0); Magnesium 1.9 mg/dL (1.8-2.4); Phosphorus 3.5 mg/dL (2.5-4.9); Potassium 3.7 mmol/L (3.5-5.1); Protein, Total 6.5 g/dL (6.4-8.2)
[2020-08-16] MEDS: GABAPENTIN 300 MG CAP PO SCH (08:33)
[2020-08-16] MEDS: carvediloL 6.25 MG TAB PO SCH (08:34)
[2020-08-16] MEDS: DONEPEZIL HCL 5 MG TAB PO SCH (08:34)
[2020-08-16] MEDS ORDERED: CLOPIDOGREL 75 MG TABLET PO SCH (09:00)
[2020-08-16] MEDS ORDERED: AMLODIPINE 5 MG TAB PO SCH (09:00)
[2020-08-16] MEDS ORDERED: ENOXAPARIN 40 MG/0.4 ML SQ SCH (09:00)
[2020-08-16] MEDS ORDERED: carvediloL 6.25 MG TAB PO SCH (09:00)
[2020-08-16] MEDS ORDERED: ASPIRIN EC 81 MG TAB PO SCH (09:00)
[2020-08-16] MEDS ORDERED: ATORVASTATIN 10 MG TAB PO SCH (09:00)
[2020-08-16] MEDS ORDERED: POTASSIUM CL SA 10 MEQ TAB PO ONE (09:00)
[2020-08-16 09:01] VITALS: TEMP 97.2
--- NOTE | 2020-08-16 13:00 | P.HP ---
Certification for Inpatient Patient admitted to: Observation With expected LOS: <2 Midnights Patient will require the following post-hospital care: None Practitioner: I am a practitioner with admitting privileges, knowledge of patient current condition, hospital course, and medical plan of care. Services: Services provided to patient in accordance with Admission requirements found in Title 42 Section 412.3 of the Code of Federal Regulations Patient History Date of Service: 08/15/20 Reason for admission: Paresthesias History of Present Illness: Patient is a 70-year-old female came to the hospital with paresthesias and weakness on the left side. Patient states symptoms started yesterday at 10:00 p.m.. Patient spoke to her family in the morning regarding this. Since her symptoms had been worsening family want her to go to the hospital. Patient came in to the emergency room. In the emergency room CT scan was negative. Patient's exam did not reveal significant weakness. Patient did have subjective paresthesias. No new deficits of sensation on exam. However, with patient risk factor decision was made to admit to the hospital. Allergies No Known Allergies Allergy (Verified 08/24/17 08:12) Home Medications: Amlodipine Besylate 5 mg PO DAILY 08/04/20 Donepezil HCl 5 mg PO BID 08/04/20 Gabapentin 600 mg PO BID 08/04/20 Omeprazole [Prilosec] 40 mg PO [id number] 08/04/20 Pravastatin Sodium 20 mg PO DAILY 08/04/20 carvediloL [Carvedilol] 20 mg PO DAILY 08/04/20 Zolpidem Tartrate [Ambien*] 5 mg PO BEDTIME 08/15/20 Aspirin [Aspirin EC 325 MG] 325 mg PO DAILY #30 tablet. 08/16/20 Clopidogrel Bisulfate [Plavix*] 75 mg PO DAILY #30 tablet 08/16/20 Hydrocodone Bit/Acetaminophen [[place] 10-325 Tablet] 1 each PO Q6HP PRN #30 tablet 08/16/20 - Past Medical/Surgical History Has patient received pneumonia vaccine in the past: No Diabetic: No -: htn -: kidney stones -: anxiety -: leg and feet pain -: Pneumonia -: Dementia -: Alzheimers -: CHOLECYSTECTOMY -: HYSTERECTOMY -: KIDNEY STONE REMOVAL -: LEFT FOOT SURGERY - Family History Father Family History: Reviewed- Non-Contributory - Social History Smoking Status: Never smoker Alcohol use: No CD- Drugs: No Caffeine use: Yes Place of Residence: Home Review of Systems 10-point ROS is otherwise unremarkable Physical Examination - Vital Signs Temperature: 97.2 F Blood Pressure: 142/65 Pulse: 65 Respirations: 16 Pulse Ox (%): 94 - Physical Exam General: Alert, In no apparent distress, Oriented x3 HEENT: Atraumatic, PERRLA, Mucous membr. moist/pink, EOMI, Sclerae nonicteric Neck: Supple, 2+ carotid pulse no bruit, No LAD, Without JVD or thyroid abnormality Respiratory: Clear to auscultation bilaterally, Normal air movement Cardiovascular: Regular rate/rhythm, Normal S1 S2, No murmurs Gastrointestinal: Normal bowel sounds, Soft and benign, Non-distended, No tenderness Musculoskeletal: No clubbing, No swelling, No tenderness Integumentary: No rashes Neurological: Normal gait, Normal speech, Normal tone, Sensation intact, Cranial nerves 3-12 intact, Normal affect, Abnormal strength (Mild weakness on the left side) Lymphatics: No axilla or inguinal lymphadenopathy Assessment & Plan - Problems (Diagnosis) (1) Left-sided weakness Current Visit: Yes Status: Acute (2) Left leg paresthesias Current Visit: Yes Status: Acute (3) Hypertension Onset Date: 04/21/17 Current Visit: No Status: Chronic Qualifiers: - Plan 1. Physical therapy evaluation 2. Speech therapy evaluation 3. Anti-platelet therapy and statin therapy 4. Lipid profile in the morning 5. MRI of the brain/echocardiogram/carotid Doppler if symptoms do not improve 6. Physically patient is doing well and may benefit more from outpatient physical therapy and inpatient rehab 7. Neurology consultation 8. Permissive hypertension and gradual blood pressure control 9. Neuro checks every 4 hr 10. GI and DVT prophylaxis Discharge Plan: Home Plan to discharge in: 24 Hours - Advance Directives Does patient have a Living Will: Yes Does patient have a Durable POA for Healthcare: No - Code Status/Comfort Care Code Status Assessed: Yes Code Status: Full Code Critical Care: No Time Spent Managing PTS Care (In Minutes): 45
--- NOTE | 2020-08-16 13:01 | P.DS ---
Discharge Date: 08/16/20 Disposition: ROUTINE DISCHARGE Discharge Condition: GOOD Reason for Admission: Paresthesias - Problems (1) Left-sided weakness Current Visit: Yes Status: Acute (2) Left leg paresthesias Current Visit: Yes Status: Acute (3) Hypertension Onset Date: 04/21/17 Current Visit: No Status: Chronic Qualifiers: Brief History of Present Illness: Patient is a 70-year-old female came to the hospital with paresthesias and weakness on the left side. Patient states symptoms started yesterday at 10:00 p.m.. Patient spoke to her family in the morning regarding this. Since her symptoms had been worsening family want her to go to the hospital. Patient came in to the emergency room. In the emergency room CT scan was negative. Patient's exam did not reveal significant weakness. Patient did have subjective paresthesias. No new deficits of sensation on exam. However, with patient risk factor decision was made to admit to the hospital. Hospital Course: Patient has done well during hospital stay. Her workup was unremarkable. Patient does not want any further imaging studies. Patient will be discharged for outpatient follow with Neurology. Cardiology as an outpatient for echocardiogram. Return to the ER if symptoms worsen. Vital Signs/Physical Exam: Temp Pulse Resp BP Pulse Ox 97.2 F 65 16 142/65 H 94 08/16/20 13:00 08/16/20 13:00 08/16/20 13:00 08/16/20 13:00 08/16/20 13:00 General: Alert, In no apparent distress, Oriented x3 Laboratory Data at Discharge: WBC 7.6 K/uL (4.3-10.9) D 08/16/20 05:22 Hgb 11.7 g/dL (12.0-15.0) L 08/16/20 05:22 Hct 35.7 % (36.0-45.0) L 08/16/20 05:22 Plt Count 229 K/uL (152-406) 08/16/20 05:22 PT 12.0 SECONDS (9.5-12.5) 08/16/20 05:22 INR 1.02 08/16/20 05:22 APTT 28.9 SECONDS (24.3-36.9) 08/16/20 05:22 Sodium 142 mmol/L (136-145) 08/16/20 05:22 Potassium 3.7 mmol/L (3.5-5.1) 08/16/20 05:22 BUN 11 mg/dL (7-18) 08/16/20 05:22 Creatinine 0.87 mg/dL (0.55-1.3) 08/16/20 05:22 Glucose 100 mg/dL (74-106) 08/16/20 05:22 Phosphorus 3.5 mg/dL (2.5-4.9) 08/16/20 05:22 Magnesium 1.9 mg/dL (1.8-2.4) 08/16/20 05:22 Total Bilirubin 0.3 mg/dL (0.2-1.0) 08/16/20 05:22 AST 18 U/L (15-37) 08/16/20 05:22 ALT 11 U/L (12-78) L 08/16/20 05:22 Alkaline Phosphatase 89 U/L (45-117) 08/16/20 05:22 Triglycerides 163 mg/dL (<150) H 08/16/20 05:22 Cholesterol 142 mg/dL (<200) 08/16/20 05:22 HDL Cholesterol 51 mg/dL (40-60) 08/16/20 05:22 Cholesterol/HDL Ratio 2.78 08/16/20 05:22 Home Medications: Amlodipine Besylate 5 mg PO DAILY 08/04/20 Donepezil HCl 5 mg PO BID 08/04/20 Gabapentin 600 mg PO BID 08/04/20 Omeprazole [Prilosec] 40 mg PO [id number] 08/04/20 Pravastatin Sodium 20 mg PO DAILY 08/04/20 carvediloL [Carvedilol] 20 mg PO DAILY 08/04/20 Zolpidem Tartrate [Ambien*] 5 mg PO BEDTIME 08/15/20 Aspirin [Aspirin EC 325 MG] 325 mg PO DAILY #30 tablet. 08/16/20 Clopidogrel Bisulfate [Plavix*] 75 mg PO DAILY #30 tablet 08/16/20 Hydrocodone Bit/Acetaminophen [[place] 10-325 Tablet] 1 each PO Q6HP PRN #30 tablet 08/16/20 New Medications: Aspirin [Aspirin EC 325 MG] 325 mg PO DAILY #30 tablet. Hydrocodone Bit/Acetaminophen [[place] 10-325 Tablet] 1 each PO Q6HP PRN #30 tablet PRN Reason: pain/ Clopidogrel Bisulfate [Plavix*] 75 mg PO DAILY #30 tablet Patient Discharge Instructions: OK TO DC IV AND DC HOME. FOLLOW-UP WITH PRIMARY CARE PROVIDER IN 1-2 WEEKS. FOLLOW-UP WITH NEUROLOGY IN 1-2 WEEKS. RETURN TO THE ER IF symptoms worsen. CALL or TEXT DR. JACOB AT [phone] IF ANY QUESTIONS REGARDING HOSPITAL STAY. PLEASE CALL THE FLOOR AT [phone] IF ANY MEDICATION OR NURSING QUESTIONS. Diet: AHA Activity: Fall precautions Followup: Bo Hernandez, [Primary Care Provider] - Time spent managing pt's care (in minutes): 35
== END 2020-08-16 14:20 | disposition home or self-care (01) ==
LOC: ER 08:21 → INTOOBSV 12:20 → ERHOLD 12:20 → 2ND 13:15
PROVIDERS: ADMIT Hospitalist; ATTEND Hospitalist
DX: R20.2 Paresthesia of skin (principal); R29.898 Other symptoms and signs involving the musculoskeletal system; I10 Essential (primary) hypertension; Z20.822 Contact with and (suspected) exposure to COVID-19; R94.31 Abnormal electrocardiogram [ECG] [EKG]; F41.9 Anxiety disorder, unspecified; G30.9 Alzheimer's disease, unspecified; F02.80 Dementia in other diseases classified elsewhere, unspecified severity, without behavioral disturbance, psychotic disturbance, mood disturbance, and anxiety
CPT/HCPCS: 93005; 85025 ×2; 80048; 36415; 83735; 84100; 85610 ×2; 80061; 85730 ×2; 80053; 70450; 70496; 71045; 97116; 97161; 97530; 99285; U0002; J1650; J2270 ×2; J7030

== ENCOUNTER 2021-04-05 10:53 | Emergency (ER) | payer OTHER ==
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
[2021-04-05 15:31] LABS: Basophils % 0.9 % (0-1.3); Hematocrit 41.8 % (36.0-45.0); Lymphocytes % 23.5 % (15.3-44.8); MPV 7.2 fL (7.6-11.3); RBC Red Blood Cell Count 4.84 M/uL (3.86-4.86)
[2021-04-05] MEDS ORDERED: NA CHLORIDE 0.9% 1,000 ML ONE (15:33)
[2021-04-05 15:40] LABS: Protime INR 1.03
--- NOTE | 2021-04-05 15:47 | RAD REPORT ---
EXAM DESCRIPTION: CT - Soft Tissue Neck W/Contr CLINICAL HISTORY: PAIN COMPARISON: No comparisons TECHNIQUE All CT scans are performed using dose optimization technique as appropriate and may includ e automated exposure control or mA/KV adjustment according to patient size. FINDINGS: Nasopharyngeal tissues are normal in appearance. Fossa Rosenmller are normal. Parapharyngeal fat triangles are symmetric. Tongue base structures are normal. Epiglottis and aryepiglottic folds are normal. Piriform sinuses are well aerated. The vocal cords are normal in appearance. Salivary glands are normal in appearance. 11 mm noncalcified nodule is present left apex. Included intracranial contents are unremarkable. IMPRESSION: No acute or aggressive neck abnormality detected. 11 mm noncalcified nodule left apex. Nonemergent followup CT chest assessment would advised.
--- NOTE | 2021-04-05 15:47 | RAD REPORT ---
EXAM DESCRIPTION: RAD - Chest Single View - 04/05/2021 3:40 pm CLINICAL HISTORY: COUGH Chest pain. COMPARISON: Chest Single View dated 08/15/2020; Chest Pa And Lat (2 Views) dated 06/13/2019; Chest Si ngle View dated 04/24/2017; Chest Single View dated 04/20/2017 FINDINGS: Portable technique limits examination quality. The lungs are grossly clear. The heart is normal in size. No displaced fractures. IMPRESSION: No acute intrathoracic process suspected.
[2021-04-05 15:48] LABS: ALT/SGPT 14 U/L (12-78); AST/SGOT 13 U/L (15-37); Albumin 3.9 g/dL (3.4-5.0); Alkaline Phosphatase 100 U/L (45-117); BUN Blood Urea Nitrogen 22 mg/dL (7-18); Bicarbonate 26 mmol/L (21-32); Bilirubin Direct 0.1 mg/dL (0-0.2); Bilirubin Total 0.4 mg/dL (0.2-1.0); Glucose Level 102 mg/dL (74-106); Magnesium 2.1 mg/dL (1.8-2.4); NT PRO-BNP 79 pg/mL (<125); Protein, Total 8.3 g/dL (6.4-8.2); Sodium Level 138 mmol/L (136-145); Troponin (Emerg Dept Use Only) < 0.02 ng/mL (0.0-0.045)
--- NOTE | 2021-04-05 16:10 | EDPHYS ---
Physician Documentation [facility] Name: Lilian Garland Age: 70 yrs Sex: Female : 1950 Arrival Date: 04/05/2021 Time: 10:54 Bed 11 Private MD: ED Physician Siddhartha Barajas HPI: 04/05 15:25 This 70 yrs old Female presents to ER via Ambulatory with complaints of Sore sushant Throat, Congestion. 15:25 The patient presents with sore throat, dysphagia, of solids. The patient describes sushant throat pain as burning. Onset: The symptoms/episode began/occurred 2 week(s) ago. Severity of symptoms: At their worst the symptoms were mild, in the emergency department the symptoms are actually worse. Modifying factors: The symptoms are alleviated by nothing, the symptoms are aggravated by nothing. The patient has not experienced similar symptoms in the past. Historical: - Allergies: 11:25 No Known Allergies; ll1 - PMHx: 11:25 Anxiety; Dementia; Depression; GERD; Chronic pain; Gout; Hypertension; Kidney stones; ll1 neuropathy; - PSHx: 11:25 cornea transplant L eye; ll1 - Immunization history:: Client reports receiving the 1st dose of the Covid vaccine, Flu vaccine is up to date. - Social history:: Smoking status: Patient denies any tobacco usage or history of. ROS: 15:28 Constitutional: Negative for fever, chills, and weight loss, Eyes: Negative for injury, sushant pain, redness, and discharge, Neck: Negative for injury, pain, and swelling, Cardiovascular: Negative for chest pain, palpitations, and edema, Respiratory: Negative for shortness of breath, cough, wheezing, and pleuritic chest pain, Abdomen/GI: Negative for abdominal pain, nausea, vomiting, diarrhea, and constipation, Back: Negative for injury and pain, : Negative for injury, bleeding, discharge, and swelling, MS/Extremity: Negative for injury and deformity, Skin: Negative for injury, rash, and discoloration, Neuro: Negative for headache, weakness, numbness, tingling, and seizure, Psych: Negative for depression, anxiety, suicide ideation, homicidal ideation, and hallucinations, Allergy/Immunology: Negative for hives, rash, and allergies, Endocrine: Negative for neck swelling, polydipsia, polyuria, polyphagia, and marked weight changes, Hematologic/Lymphatic: Negative for swollen nodes, abnormal bleeding, and unusual bruising. 15:28 ENT: Positive for foreign body sensation, sore throat. Exam: 15:28 Constitutional: This is a well developed, well nourished patient who is awake, alert, sushant and in no acute distress. Head/Face: Normocephalic, atraumatic. Eyes: Pupils equal round and reactive to light, extra-ocular motions intact. Lids and lashes normal. Conjunctiva and sclera are non-icteric and not injected. Cornea within normal limits. Periorbital areas with no swelling, redness, or edema. Neck: Trachea midline, no thyromegaly or masses palpated, and no cervical lymphadenopathy. Supple, full range of motion without nuchal rigidity, or vertebral point tenderness. No Meningismus. Chest/axilla: Normal chest wall appearance and motion. Nontender with no deformity. No lesions are appreciated. Cardiovascular: Regular rate and rhythm with a normal S1 and S2. No gallops, murmurs, or rubs. Normal PMI, no JVD. No pulse deficits. Respiratory: Lungs have equal breath sounds bilaterally, clear to auscultation and percussion. No rales, rhonchi or wheezes noted. No increased work of breathing, no retractions or nasal flaring. Abdomen/GI: Soft, non-tender, with normal bowel sounds. No distension or tympany. No guarding or rebound. No evidence of tenderness throughout. Back: No spinal tenderness. No costovertebral tenderness. Full range of motion. Female : Normal external genitalia. Skin: Warm, dry with normal turgor. Normal color with no rashes, no lesions, and no evidence of cellulitis. 15:28 ENT: Posterior pharynx: Tonsils: Uvula: normal, midline, swelling, that is mild, erythema, peritonsillar mass, is not appreciated. 16:20 ECG was reviewed by the Attending Physician. [facility] Vital Signs: 11:22 Resp 18; Weight 95.25 kg; Height 5 ft. 3 in. (160.02 cm); Pain 5/10; ll1 11:27 BP 147 / 92; Pulse 94; Temp 97.8; Pulse Ox 98% ; ll1 14:28 BP 137 / 85; Pulse 90; Resp 16; Pulse Ox 100% ; vg1 16:15 BP 134 / 76; Pulse 90; Resp 16; Pulse Ox 100% ; vg1 11:22 Body Mass Index 37.20 (95.25 kg, 160.02 cm) ll1 MDM: 14:18 Patient medically screened. [facility] 16:02 Differential diagnosis: bronchitis, group A strep tonsillitis, laryngitis, lymphoma, sushant peritonsillar abscess tonsillitis, upper respiratory infection, uvulitis. Data reviewed: vital signs, nurses notes, lab test result(s), EKG, radiologic studies, CT scan, plain films. Data interpreted: groundwater monitoring technician: rate is 90 beats/min, rhythm is regular, Pulse oximetry: on room air is 100 %. Test interpretation: by ED physician or midlevel provider: ECG, plain radiologic studies. Counseling: I had a detailed discussion with the patient and/or guardian regarding: the historical points, exam findings, and any diagnostic results supporting the discharge/admit diagnosis, lab results, radiology results. 04/05 11:31 Order name: Strep ll1 04/05 11:32 Order name: Group A Streptococcus Rapid Sc; Complete Time: 16:05 [facility] 04/05 12:26 Order name: Throat Culture [facility] 04/05 15:02 Order name: Basic Metabolic Panel; Complete Time: 16:05 [facility] 04/05 15:02 Order name: CBC with Diff; Complete Time: 16:05 [facility] 04/05 15:02 Order name: LFT's; Complete Time: 16:05 [facility] 04/05 15:02 Order name: Magnesium; Complete Time: 16:05 [facility] 04/05 15:02 Order name: NT PRO-BNP; Complete Time: 16:05 [facility] 04/05 15:02 Order name: PT-INR; Complete Time: 16:05 [facility] 04/05 15:02 Order name: Troponin (emerg Dept Use Only); Complete Time: 16:05 [facility] 04/05 15:02 Order name: XRAY Chest (1 view); Complete Time: 16:05 [facility] 04/05 15:02 Order name: Soft Tissue Neck W/Contr CT; Complete Time: 16:05 [facility] 04/05 15:42 Order name: CREATININE WHOLE BLOOD; Complete Time: 16:05 [facility] 04/05 16:11 Order name: Urine Dipstick-Ancillary [facility] 04/05 15:02 Order name: EKG; Complete Time: 15:03 [facility] 04/05 15:02 Order name: Cardiac monitoring; Complete Time: 16:15 [facility] 04/05 15:02 Order name: EKG - Nurse/Tech; Complete Time: 16:15 [facility] 04/05 15:02 Order name: IV Saline Lock; Complete Time: 15:21 [facility] 04/05 15:02 Order name: Labs collected and sent; Complete Time: 15: [facility] 04/05 15:02 Order name: O2 Per Protocol; Complete Time: 15: [facility] 04/05 15:02 Order name: O2 Sat Monitoring; Complete Time: 15: [facility] EC:20 Rate is 95 beats/min. Rhythm is regular. QRS [place] is Normal. NV interval is normal. QRS sushant interval is normal. QT interval is normal. No Q waves. T waves are Normal. No ST changes noted. Clinical impression: NSR w/ Non-specific ST/T Changes and No evidence of ischemia. Interpreted by me. Administered Medications: 16:06 Drug: NS 0.9% 1000 ml Route: IV; Rate: 125 ml/hr; Site: right antecubital; kg 17:03 Follow up: IV Status: Completed infusion; IV Intake: 200ml vg1 Disposition Summary: 04/05/21 16:10 Discharge Ordered Location: Home sushant Problem: new sushant Symptoms: have improved sushant Condition: Stable sushant Diagnosis - Dysphagia, unspecified sushant - Gastro-esophageal reflux disease with esophagitis sushant Followup: sushant - With: Private Physician - When: 2 - 3 days - Reason: Recheck today's complaints, Continuance of care, Re-evaluation by your physician Followup: sushant - With: Helena Lugo MD - When: 2 - 3 days - Reason: Recheck today's complaints, Re-evaluation by your physician Followup: sushant - With: Alvarado Harp MD - When: 2 - 3 days - Reason: Recheck today's complaints, Re-evaluation by your physician Discharge Instructions: - Discharge Summary Sheet sushant - Food Choices for Gastroesophageal Reflux Disease, Adult sushant - Dysphagia sushant - Esophagitis sushant - Gastroesophageal Reflux Disease, Adult sushant Forms: - Medication Reconciliation Form sushant - Thank You Letter sushant - Antibiotic Education sushant - Prescription Opioid Use sushant Prescriptions: - Protonix 40 mg Oral Tablet - take 1 tablet by ORAL route once daily; 30 tablet; Refills: 0, Product sushant Selection Permitted Signatures: Dispatcher [employer] Siddhartha Patrick MD MD cha Lewis, Lynsay RN RN ll1 Ava Rangel RN RN kg Itzel Oviedo RN vg1
--- NOTE | 2021-04-05 16:10 | ER ---
Nurse's Notes [facility] Name: Lilian Garland Age: 70 yrs Sex: Female : 1950 Arrival Date: 04/05/2021 Time: 10:54 Bed 11 Private MD: Diagnosis: Dysphagia, unspecified;Gastro-esophageal reflux disease with esophagitis Presentation: 04/05 11:22 Chief complaint: Patient states: Can't swallow food or pills over 1 month. + congestion ll1 for 2 weeks. No fever. States she has a lump in her throat area Doctor David found a couple months ago. Coronavirus screen: Vaccine status: Patient reports receiving the 1st dose of the Covid vaccine. congestion, cough unrelated to allergies, fatigue, headache, nausea, sore throat, vomiting. Client presents with at least one sign or symptom that may indicate coronavirus-19. Standard/surgical mask placed on the client. Ebola Screen: Patient denies travel to an Ebola-affected area in the 21 days before illness onset. Initial Sepsis Screen: Does the patient meet any 2 criteria? No. Patient's initial sepsis screen is negative. Does the patient have a suspected source of infection? Yes: Other: sore throat. Risk Assessment: Do you want to hurt yourself or someone else? Patient reports no desire to harm self or others. Onset of symptoms was February 28, 2021. 11:22 Method Of Arrival: Ambulatory ll1 11:22 Acuity: JI 3 ll1 Historical: - Allergies: 11:25 No Known Allergies; ll1 - PMHx: 11:25 Anxiety; Dementia; Depression; GERD; Chronic pain; Gout; Hypertension; Kidney stones; ll1 neuropathy; - PSHx: 11:25 cornea transplant L eye; ll1 - Immunization history:: Client reports receiving the 1st dose of the Covid vaccine, Flu vaccine is up to date. - Social history:: Smoking status: Patient denies any tobacco usage or history of. Screenin:28 Abuse screen: Denies threats or abuse. Nutritional screening: No deficits noted. vg1 Tuberculosis screening: No symptoms or risk factors identified. Fall Risk No fall in past 12 months (0 pts). No secondary diagnosis (0 pts). No IV (0 pts). Ambulatory Aid- None/Bed Rest/Nurse Assist (0 pts). Gait- Normal/Bed Rest/Wheelchair (0 pts) Mental Status- Oriented to own ability (0 pts). Total Freeman Fall Scale indicates No Risk (0-24 pts). Assessment: 14:26 General: Appears in no apparent distress. uncomfortable, Behavior is calm, cooperative. vg1 Pain: Complains of pain in epigastric area Pain currently is 6 out of 10 on a pain scale. Neuro: Level of Consciousness is awake, alert, obeys commands, Oriented to person, place, time, situation. Cardiovascular: Patient's skin is warm and dry. Respiratory: Airway is patent Respiratory effort is even, unlabored, Breath sounds are clear bilaterally. GI: Reports nausea, vomiting. : No signs and/or symptoms were reported regarding the genitourinary system. EENT: Throat is reddened Reports difficulty swallowing solids but does not have trouble drinking fluids. States has seen DR li for this issue and stated 'he is keeping an eye on whatever is in my throat.'. Derm: Skin is intact, Skin is pink, warm \T\ dry. Musculoskeletal: Circulation, motion, and sensation intact. 17:02 Reassessment: Patient appears in no apparent distress at this time. No changes from vg1 previously documented assessment. Patient and/or family updated on plan of care and expected duration. Pain level reassessed. Patient is alert, oriented x 3, equal unlabored respirations, skin warm/dry/pink. Vital Signs: 11:22 Resp 18; Weight 95.25 kg; Height 5 ft. 3 in. (160.02 cm); Pain 5/10; ll1 11:27 BP 147 / 92; Pulse 94; Temp 97.8; Pulse Ox 98% ; ll1 14:28 BP 137 / 85; Pulse 90; Resp 16; Pulse Ox 100% ; vg1 16:15 BP 134 / 76; Pulse 90; Resp 16; Pulse Ox 100% ; vg1 11:22 Body Mass Index 37.20 (95.25 kg, 160.02 cm) ll1 ED Course: 10:54 Patient arrived in ED. as 11:25 Triage completed. ll1 11:26 Arm band placed on. 1 14:18 Siddhartha Barajas MD is Attending Physician. [facility] 14:26 Itzel Oviedo, YENY is Primary Nurse. vg1 14:28 Patient has correct armband on for positive identification. Bed in low position. Call vg1 light in reach. 14:28 No provider procedures requiring assistance completed. vg1 15:21 Initial lab(s) drawn, by me, sent to lab. Inserted saline lock: 20 gauge in right vg1 antecubital area, using aseptic technique. Blood collected. 15:30 Soft Tissue Neck W/Contr CT In Process Unspecified. EDMS 15:41 XRAY Chest (1 view) In Process Unspecified. EDIN 16:09 Helena Lugo MD is Referral Physician. [facility] 16:09 Alvarado Harp MD is Referral Physician. [facility] 17:02 IV discontinued, intact, bleeding controlled, No redness/swelling at site. Pressure vg1 dressing applied. Administered Medications: 16:06 Drug: NS 0.9% 1000 ml Route: IV; Rate: 125 ml/hr; Site: right antecubital; kg 17:03 Follow up: IV Status: Completed infusion; IV Intake: 200ml vg1 Intake: 17:03 IV: 200ml; Total: 200ml. vg1 Outcome: 16:10 Discharge ordered by . [facility] 17:02 Discharged to home ambulatory. vg1 17:02 Condition: stable 17:02 Discharge instructions given to patient, Instructed on discharge instructions, follow up and referral plans. medication usage, Demonstrated understanding of instructions, follow-up care, medications, Prescriptions given X 1. 17:02 Patient left the ED. vg1 Signatures: Dispatcher [employer] Siddhartha Patrick MD MD cha Martinez, Amelia as Garcia, Victoria RN RN vg1 Kaelyn Fitch RN RN ll1 Ava Rangel RN RN kg
[2021-04-05 16:12] LABS: Urine Blood Trace-intact (Negative); Urine Glucose Negative (Negative); Urine Protein Negative (Negative)
[2021-04-05 17:16] VITALS: TEMP 97.8
[2021-04-05 17:17] VITALS: O2SAT 100
[2021-04-05 17:18] VITALS: BP 134/76
--- NOTE | 2021-04-06 10:57 | EKG ---
Test Date: 2021-04-05 Test Time: 16:13:44 Show Operations Supervisor: BOGDAN MEASUREMENT RESULTS: Intervals: Rate: 95 MO: 162 QRSD: 102 QT: 372 QTc: 467 [place]: P: 46 MO: 162 QRS: 260 T: 27 INTERPRETIVE STATEMENTS: Sinus rhythm with premature atrial complexes Right superior axis deviation Abnormal ECG Compared to ECG 08/15/2020 08:38:23 Atrial premature complex(es) now present Right superior axis now present Left-axis deviation no longer present Myocardial infarct finding no longer present Electronically Signed On 04-06-21 10:54:08 CDT by Crispin Sood
== END 2021-04-05 17:02 | disposition home or self-care (01) ==
LOC: ER 10:53
DX: K21.00 Gastro-esophageal reflux disease with esophagitis, without bleeding (principal); I10 Essential (primary) hypertension
CPT/HCPCS: 93005; 87070; 85025; 80048; 36415; 83735; 85610; 82565; 80076; 87081; 81003; 84484; 83880; 70491; 71045; 96360; 99284; Q9967; J7030

== ENCOUNTER 2021-05-03 07:47 | Emergency (ER) | payer OTHER ==
[2021-05-03] MEDS ORDERED: IBUPROFEN 200 MG TAB PO ONE (08:26)
[2021-05-03] MEDS ORDERED: IBUPROFEN 400 MG TAB ONE (08:26)
--- NOTE | 2021-05-03 08:58 | RAD REPORT ---
EXAM DESCRIPTION: RAD - Foot Right 3 View - 05/03/2021 8:43 am CLINICAL HISTORY: Right foot pain status post injury FINDINGS: No fracture or dislocation is seen. Bones are osteoporotic. Soft tissue swelling
--- NOTE | 2021-05-03 09:09 | ER ---
Nurse's Notes [facility] Name: Lilian Garland Age: 70 yrs Sex: Female : 1950 Arrival Date: 05/03/2021 Time: 07:49 Bed 12 Private MD: Diagnosis: Contusion of right foot Presentation: 05/03 07:56 Chief complaint: Stubbed right great toe 5 days ago, c/o right foot pain 03/09. hb Coronavirus screen: At this time, the client does not indicate any symptoms associated with coronavirus-19. Ebola Screen: No symptoms or risks identified at this time. Initial Sepsis Screen: Does the patient meet any 2 criteria? No. Patient's initial sepsis screen is negative. Does the patient have a suspected source of infection? No. Patient's initial sepsis screen is negative. Risk Assessment: Do you want to hurt yourself or someone else? Patient reports no desire to harm self or others. Onset of symptoms was March 28, 2021. 07:56 Method Of Arrival: Ambulatory hb 07:56 Acuity: JI 4 hb Historical: - Allergies: 07:58 No Known Allergies; hb - Home Meds: 07:58 amlodipine 5 mg tab 1 tab once daily [Active]; carvedilol 6.25 mg Oral tab 1 tab every hb 12 hours [Active]; donepezil 5 mg Oral TbDL 1 tab once daily [Active]; duloxetine 20 mg Oral cpDR 1 cap 2 times per day [Active]; furosemide 20 mg Oral tab 1 tab once daily [Active]; gabapentin 600 mg Oral tab 2 tab twice a day [Active]; omeprazole 40 mg Oral cpDR 1 cap once daily [Active]; pravastatin 20 mg Oral tab 1 tab once daily [Active]; zolpidem 5 mg Oral tab nightly [Active]; - PMHx: 07:58 Anxiety; Chronic pain; Dementia; Depression; GERD; Gout; Hypertension; Kidney stones; hb neuropathy; - PSHx: 07:58 Cornea transplant L eye; hb - Immunization history:: Client reports receiving the 2nd dose of the Covid vaccine. - Social history:: Smoking status: Patient denies any tobacco usage or history of. Screenin:09 Abuse screen: Denies threats or abuse. Denies injuries from another. Nutritional es2 screening: No deficits noted. Tuberculosis screening: No symptoms or risk factors identified. Fall Risk Gait- Impaired (20 pts.). Assessment: 08:07 Reassessment: Patient and/or family updated on plan of care and expected duration. Pain es2 level reassessed. Patient is alert, oriented x 3, equal unlabored respirations, skin warm/dry/pink. Pt states she stumped R foot on a brick, last Monday. Foot has some swelling, denies applying ice. Reports she can apply very little weight to that foot. General: Appears uncomfortable, obese, well nourished, Behavior is calm, cooperative, appropriate for age. Pain: Complains of pain in right foot Pain currently is 8 out of 10 on a pain scale. Neuro: Level of Consciousness is awake, alert, obeys commands, Oriented to person, place, time, situation, Appropriate for age Speech is normal. Cardiovascular: Capillary refill < 3 seconds Patient's skin is warm and dry. Respiratory: Airway is patent Respiratory effort is even, unlabored, Respiratory pattern is regular, symmetrical. GI: Reports nausea. : No signs and/or symptoms were reported regarding the genitourinary system. EENT: No signs and/or symptoms were reported regarding the EENT system. Derm: Skin temperature is warm. Musculoskeletal: Reports pain in right foot since last monday.. Pain is 8 out of 10 on a pain scale. Vital Signs: 07:56 BP 142 / 86; Pulse 125; Resp 16; Temp 99.3; Pulse Ox 97% on R/A; Weight 97.52 kg; hb Height 5 ft. 3 in. (160.02 cm); Pain 8/10; 09:37 BP 113 / 85; Pulse 99; Resp 17; Pulse Ox 97% on R/A; es2 07:56 Body Mass Index 38.09 (97.52 kg, 160.02 cm) hb ED Course: 07:49 Patient arrived in ED. ds1 07:50 Lesli Richardson FNP-C is PHCP. kb 07:50 He Dueñas MD is Attending Physician. kb 07:57 Triage completed. hb 07:58 Arm band placed on. hb 07:59 Bekah Bentley, YENY is Primary Nurse. es2 08:10 Patient has correct armband on for positive identification. Bed in low position. Call es2 light in reach. 08:10 No provider procedures requiring assistance completed. es2 08:43 Foot Right 3 View XRAY In Process Unspecified. EDMS 09:37 Patient did not have IV access during this emergency room visit. es2 Administered Medications: 08:07 Drug: Ibuprofen 600 mg Route: PO; es2 09:38 Follow up: Response: No adverse reaction es2 Outcome: 09:08 Discharge ordered by . karen 09:37 Discharged to home ambulatory. es2 09:37 Condition: stable 09:37 Discharge instructions given to patient, Instructed on discharge instructions, medication usage, Demonstrated understanding of instructions, medications, Prescriptions given X 1. 09:38 Patient left the ED. es2 Signatures: Dispatcher [employer] EDMS Lesli Richardson, CUSTOMER LOYALTY REPRESENTATIVE-C CUSTOMER LOYALTY REPRESENTATIVE-Nani Iniguez ds1 Kathleen Thompson, RN RN Bekah Bentley RN RN es2
--- NOTE | 2021-05-03 09:10 | EDPHYS ---
Physician Documentation [facility] Name: Lilian Garland Age: 70 yrs Sex: Female : 1950 Arrival Date: 05/03/2021 Time: 07:49 Bed 12 Private MD: ED Physician He Dueñas HPI: 05/03 08:03 This 70 yrs old Female presents to ER via Ambulatory with complaints of Foot kb Swelling. 08:03 The patient presents with pain, swelling, tenderness. The complaints affect the right kb foot. Context: The problem was sustained at home, resulted from the patient kicking, brick, the patient can fully bear weight, the patient is able to ambulate. Onset: The symptoms/episode began/occurred 6 day(s) ago. Modifying factors: The symptoms are alleviated by nothing, the symptoms are aggravated by nothing. Associated signs and symptoms: Pertinent positives: swelling, Pertinent negatives: calf tenderness, fever, nausea, numbness, rash, tingling, vomiting, warmth, weakness. Severity of symptoms: At their worst the symptoms were moderate, in the emergency department the symptoms are unchanged. The patient has not experienced similar symptoms in the past. The patient has not recently seen a physician. Historical: - Allergies: 07:58 No Known Allergies; hb - Home Meds: 07:58 amlodipine 5 mg tab 1 tab once daily [Active]; carvedilol 6.25 mg Oral tab 1 tab every hb 12 hours [Active]; donepezil 5 mg Oral TbDL 1 tab once daily [Active]; duloxetine 20 mg Oral cpDR 1 cap 2 times per day [Active]; furosemide 20 mg Oral tab 1 tab once daily [Active]; gabapentin 600 mg Oral tab 2 tab twice a day [Active]; omeprazole 40 mg Oral cpDR 1 cap once daily [Active]; pravastatin 20 mg Oral tab 1 tab once daily [Active]; zolpidem 5 mg Oral tab nightly [Active]; - PMHx: 07:58 Anxiety; Chronic pain; Dementia; Depression; GERD; Gout; Hypertension; Kidney stones; hb neuropathy; - PSHx: 07:58 Cornea transplant L eye; hb - Immunization history:: Client reports receiving the 2nd dose of the Covid vaccine. - Social history:: Smoking status: Patient denies any tobacco usage or history of. ROS: 08:03 Constitutional: Negative for fever, chills, and weight loss. kb 08:03 MS/extremity: Positive for erythema, pain, swelling, tenderness, of the right first toe. 08:03 All other systems are negative. Exam: 08:02 Constitutional: This is a well developed, well nourished patient who is awake, alert, kb and in no acute distress. Head/Face: Normocephalic, atraumatic. ENT: Moist Mucous membranes Respiratory: Respirations even and unlabored. No increased work of breathing, no retractions or nasal flaring. Skin: Warm, dry with normal turgor. Normal color. Neuro: Awake and alert, GCS 15, oriented to person, place, time, and situation. Moves all extremities. Normal gait. Psych: Awake, alert, with orientation to person, place and time. Behavior, mood, and affect are within normal limits. 08:02 Musculoskeletal/extremity: Extremities: grossly normal except: noted in the right first toe: erythema, pain, swelling, tenderness, ROM: limited active range of motion due to pain, Circulation is intact in all extremities. Sensation intact. Weight bearing: able to fully bear weight. Vital Signs: 07:56 BP 142 / 86; Pulse 125; Resp 16; Temp 99.3; Pulse Ox 97% on R/A; Weight 97.52 kg; hb Height 5 ft. 3 in. (160.02 cm); Pain 8/10; 09:37 BP 113 / 85; Pulse 99; Resp 17; Pulse Ox 97% on R/A; es2 07:56 Body Mass Index 38.09 (97.52 kg, 160.02 cm) hb MDM: 07:57 Patient medically screened. kb 07:58 Data reviewed: vital signs, nurses notes. Data interpreted: Pulse oximetry: on room air kb is 97 %. Interpretation: normal. 09:08 Counseling: I had a detailed discussion with the patient and/or guardian regarding: the kb historical points, exam findings, and any diagnostic results supporting the discharge/admit diagnosis, radiology results, the need for outpatient follow up, a family practitioner, to return to the emergency department if symptoms worsen or persist or if there are any questions or concerns that arise at home. 17:27 Differential diagnosis: fracture, sprain, cellulitis. kb 05/03 07:57 Order name: Foot Right 3 View XRAY; Complete Time: 09:05 kb 05/03 09:05 Order name: Vital Signs; Complete Time: 09:37 kb 05/03 09:08 Order name: Deyvi Wrap; Complete Time: 09:37 kb Administered Medications: 08:07 Drug: Ibuprofen 600 mg Route: PO; es2 09:38 Follow up: Response: No adverse reaction es2 Disposition: 09:38 Co-signature as Attending Physician, He Dueñas MD I agree with the assessment and rn plan of care. Attestation: The patient's history, exam findings, diagnostics, and a summary of any interventions or procedures was reviewed in detail with Lesli MEJÍA. Disposition Summary: 05/03/21 09:08 Discharge Ordered Location: Home kb Condition: Stable kb Diagnosis - Contusion of right foot kb Followup: kb - With: Emergency Department - When: As needed - Reason: Worsening of condition Followup: kb - With: Private Physician - When: 2 - 3 days - Reason: Recheck today's complaints, Continuance of care, Re-evaluation by your physician Discharge Instructions: - Discharge Summary Sheet kb - Cellulitis, Adult, [id number] kb - Foot Contusion, [id number] kb Forms: - Medication Reconciliation Form kb - Thank You Letter kb - Antibiotic Education kb - Prescription Opioid Use kb Prescriptions: - Cephalexin 500 mg Oral Capsule - take 1 capsule by ORAL route every 8 hours for 7 days; 21 capsule; Refills: 0, kb Product Selection Permitted Signatures: Dispatcher [employer] Lesli Membreno FNP-C FNP-CkHe Trammell MD MD rn Baxter, Heather, RN RN hb Smith, Elizabeth, RN RN es2
[2021-05-03 09:42] VITALS: TEMP 99.3; O2SAT 97
[2021-05-03 09:43] VITALS: BP 113/85
== END 2021-05-03 09:38 | disposition home or self-care (01) ==
LOC: ER 07:47
DX: S90.31XA Contusion of right foot, initial encounter (principal); W22.8XXA Striking against or struck by other objects, initial encounter; Y93.01 Activity, walking, marching and hiking; Y92.009 Unspecified place in unspecified non-institutional (private) residence as the place of occurrence of the external cause; I10 Essential (primary) hypertension; F41.8 Other specified anxiety disorders; F03.90 Unspecified dementia, unspecified severity, without behavioral disturbance, psychotic disturbance, mood disturbance, and anxiety
CPT/HCPCS: 99283

== ENCOUNTER 2021-06-28 09:58 | Emergency (ER) | payer OTHER ==
--- OUTSIDE RECORDS SUMMARY | 2021-06-28 10:07 | XMS REPORT | Continuity of Care Document ---
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 furosemide 2019-07 Yes [id number] 20mg Take 1 U nivers 20 mg 0-28 tablet by ity of tablet 00:00: mouth [place] 00 daily. Medical Branch traMADoL 50 2019-07 Yes [id number] 50mg Take 1 Univ ers mg tablet 0-28 tablet by ity o f 00:00: mouth [place] 00 every 8 Medical (eight) Branch hours as needed for Pain (scale 7-10). Indication s: acute pain furosemide 2019-07 Yes [id number] 20mg Take 1 U nivers 20 mg 0-28 tablet by ity of tablet 00:00: mouth [place] 00 daily. Medical Branch traMADoL 50 2019-07 Yes [id number] 50mg Take 1 Univ ers mg tablet 0-28 tablet by ity o f 00:00: mouth [place] 00 every 8 Medical (eight) Branch hours as needed for Pain (scale 7-10). Indication s: acute pain furosemide 2019-07 Yes [id number] 20mg Take 1 U nivers 20 mg 0-28 tablet by ity of tablet 00:00: mouth [place] 00 daily. Medical Branch traMADoL 50 2019-07 Yes [id number] 50mg Take 1 Univ ers mg tablet 0-28 tablet by ity o f 00:00: mouth [place] 00 every 8 Medical (eight) Branch hours as needed for Pain (scale 7-10). Indication s: acute pain furosemide 2019-07 Yes [id number] 20mg Take 1 U nivers 20 mg 0-28 tablet by ity of tablet 00:00: mouth [place] 00 daily. Medical Branch traMADoL 50 2019-07 Yes [id number] 50mg Take 1 Univ ers mg tablet 0-28 tablet by ity o f 00:00: mouth [place] 00 every 8 Medical (eight) Branch hours as needed for Pain (scale 7-10). Indication s: acute pain furosemide 2019-07 Yes [id number] 20mg Take 1 U nivers 20 mg 0-28 tablet by ity of tablet 00:00: mouth [place] 00 daily. Medical Branch traMADoL 50 2019-07 Yes [id number] 50mg Take 1 Univ ers mg tablet 0-28 tablet by ity o f 00:00: mouth [place] 00 every 8 Medical (eight) Branch hours as needed for Pain (scale 7-10). Indication s: acute pain furosemide 2019-07 Yes [id number] 20mg Take 1 U nivers 20 mg 0-28 tablet by ity of tablet 00:00: mouth [place] 00 daily. Medical Branch carvediloL 2019-07 Yes 6.25mg 6.25 mg, U nivers (COREG) 0-27 Oral, BID ity of tablet 6.25 22:00: [place] 00 First dose Medical on [facility] 05/26/20 at 1700, Until Discontinu ed, Routine enoxaparin 2019-07 Yes 40mg 40 mg, Unive rs (LOVENOX) 0-27 Subcutaneo ity of injection 22:00: [place] 40 [place] 00 First dose Medical on [facility] 05/26/20 at 1700, Until Discontinu ed, Routine HYDROcodone 2019-07 2020- No 1{tbl} Take 1 U nivers -acetaminop 0-27 10-27 tablet by it y of hen 7.5-325 21:54: 00:00 mouth 2 [place] mg per 14 :00 (two) Medical tablet times Branch daily. metoprolol 2019-07 2020- No 100mg Take 100 U nivers tartrate 0-27 10-27 mg by ity of 100 mg 21:54: 00:00 mouth 2 [place] tablet 14 :00 (two) Medical times Branch daily. ALPRAZolam 2019-07 2020- No .25mg Take 0.25 Univers 0.25 mg 0-27 10-27 mg by ity of tablet 21:54: 00:00 mouth 3 [place] 14 :00 (three) Medical times Branch daily as needed. mirtazapine 2019-07- No 15mg Take 15 mg Univers 15 mg 0-26 05- by mouth ity of tablet 21:54: 00:00 at [place] 14 :00 bedtime. Medical Branch traMADOL 50 2019-07- No 50mg Take 50 mg Univers mg tablet 0- 10- by mouth ity o f 21:54: 00:00 every 6 [place] 14 :00 (six) Medical hours as Branch needed. zolpidem 2019-07 Yes 5mg 5 mg, Univers (AMBIEN) 0- Oral, ity of tablet 5 mg 21:53: QHSPRN, Victor Manuel as 49 Starting [facility] 05/26/20 at 1653, Until Discontinu ed, Routine, Insomnia nitroglycer 2019-07 Yes .4mg 0.4 mg, Uni vers in 0- Sublingual ity of (NITROSTAT) 21:35: , Q5MIN Victor Manuel as sublingual 53 PRN, Medical tablet 0.4 Starting Branc h mg [facility] 05/26/20 at 1635, Until Discontinu ed, Routine, Chest pain ondansetron 2019-07 Yes 4mg 4 mg, Slow Univers (ZOFRAN 0-27 IV Push, ity of (PF)) 21:35: Q6HPRN, [place] injection 4 11 Starting Medi tito mg [facility] 05/26/20 at 1635, Until Discontinu ed, Routine, Nausea and Vomiting (N/V) morpHINE 2019-07- No 2mg 2 mg, Slow Un glenn injection 2 0- IV Push, ity of mg 21:35: 21:34 Q6HPRN, [place] 00 :00 Starting Medical [facility] 05/26/20 at 1635, Until 05/27/20 at 1634, Routine, Pain (scale 7-10), Chest pain traMADoL 2019-07- No 50mg 50 mg, Univer s (ULTRAM) 0- 05-28 Oral, ity of tablet 50 21:34: 21:33 Q8HPRN, [place] mg 41 :41 Starting Medical [facility] 05/26/20 at 1634, Until Gail 05/28/20 at 1633, Routine, Pain (scale 4-6) acetaminoph 2019-07 Yes 650mg 650 mg, Un glenn en Oral, ity of (TYLENOL) 21:34: Q6HPRN, [place] tablet 650 34 Starting Medic al mg [facility] 05/26/20 at 1634, Until Discontinu ed, Routine, Pain (scale 1-3) LORazepam 2019-07 2020- No .5mg 0.5 mg, Univ ers (ATIVAN) 05-26 Slow IV ity of injection 19:30: 18:21 Push, [place] 0.5 mg 00 :00 ONCE, 1 Medical dose, [facility] 05/26/20 at 1430, STAT Ferrous Ferrous Yes Bo [address] Sulfate Sulfate 9-08 [facility] metoprolol Yes 100mg QD Take 100 Cade rris succinate 9-08 mg by Health (TOPROL XL) 16:03: mouth 100 mg 02 [...] Moser (ZOLOFT) 25 9-08 depressive tablet by [place] mg tablet 00:00: disorder), mouth at 00 recurrent bedtime episode, nightly. mild Carvedilol Carvedilol Yes Bo [address] [facility] with food [facility] Amlodipine Amlodipine Yes Bo [address] [facility] [address] Besylate Besylate [facility] Zolpidem Zolpidem Yes Bo [address] Tartrate Tartrate [facility] at bedtime [facility] PRN [facility] Gabapentin Gabapentin Yes Bo [address] [facility] Belsomra Belsomra Yes Bo [address] [facility] at bedtime [facility] as needed [facility] Pravastatin Pravastatin Yes Bo [address] [facility] Sodium Sodium [facility] Omeprazole Omeprazole Yes Bo [address] [facility] 30 minutes [facility] - before [facility] morning l meal [facility] Immunizations Ordered Filled Immunization Date Status Comments Sour e Immunization Name Name Td 2011-03-14 Completed University of 00:00:00 [facility] Td 2011-03-14 Completed University of 00:00:00 [facility] Td 2011-03-14 Completed University of 00:00:00 [facility] Td 2011-03-14 Completed University of 00:00:00 [facility] Td 2011-03-14 Completed University of 00:00:00 [facility] Td 2011-03-14 Completed University of 00:00:00 [facility] Td 2011-03-14 Completed University of 00:00:00 [facility] Td 2011-03-14 Completed University of 00:00:00 [facility] Vital Signs Vital Name Observation Time Observation Value Comments Source Systolic blood 2021-03-08 17:28:00 111 mm[Hg] Univer sity of pressure [facility] Diastolic blood 2021-03-08 17:28:00 57 mm[Hg] Unive rsity of pressure [facility] Heart rate 2021-03-08 17:28:00 87 /min [facility] Body temperature 2021-03-08 17:28:00 36.33 Mary [facility] Respiratory rate 2021-03-08 17:28:00 18 /min [facility] Oxygen saturation in 2021-03-08 17:28:00 96 /min [facility] Arterial blood by [facility] Pulse oximetry Branch Body height 2021-03-07 01:18:00 157.5 cm [facility] Branch Body weight 2021-03-06 22:21:00 95.255 kg [facility] [place] [facility] BMI 2021-03-06 22:21:00 38.41 kg/m2 [facility] [place] [facility] Systolic blood 2021-02-07 18:00:00 129 mm[Hg] Univer sity of pressure [place] [facility] Diastolic blood 2021-02-07 18:00:00 63 mm[Hg] Unive rsity of pressure [place] [facility] Heart rate 2021-02-07 18:00:00 79 /min [facility] [place] [facility] Respiratory rate 2021-02-07 18:00:00 19 /min [facility] ers[facility] [place] [facility] Oxygen saturation in 2021-02-07 18:00:00 96 /min University of Arterial blood by [place] [facility] Pulse oximetry Branch Body temperature 2021-02-07 16:03:00 36.44 Mary [facility] [place] [facility] Body weight 2021-02-07 16:02:00 99.791 kg [facility] [place] [facility] BMI 2021-02-07 16:02:00 38.97 kg/m2 [facility] [place] [facility] Systolic blood 2020-05-27 16:25:00 118 mm[Hg] Univer sity of pressure [place] [facility] Diastolic blood 2020-05-27 16:25:00 71 mm[Hg] Unive rsity of pressure [place] [facility] Heart rate 2020-05-27 16:25:00 80 /min [facility] [place] [facility] Body temperature 2020-05-27 16:25:00 36.06 Mary [facility] [place] [facility] Respiratory rate 2020-05-27 16:25:00 20 /min Univ ers[facility] [place] [facility] Oxygen saturation in 2020-05-27 16:25:00 96 /min University of Arterial blood by [employer] [facility] Pulse oximetry Branch Body weight 2020-05-27 08:53:00 100.064 kg [facility] [place] [facility] BMI 2020-05-27 08:53:00 39.08 kg/m2 [facility] [place] [facility] Body height 2020-05-26 20:30:00 160 cm [facility] [place] [facility] Systolic blood 2020-05-27 16:25:00 118 mm[Hg] Univer sity of pressure [place] [facility] Diastolic blood 2020-05-27 16:25:00 71 mm[Hg] Unive rsity of pressure [facility] Heart rate 2020-05-27 16:25:00 80 /min [facility] Body temperature 2020-05-27 16:25:00 36.06 [facility] Respiratory rate 2020-05-27 16:25:00 20 /min [facility] Oxygen saturation in 2020-05-27 16:25:00 96 /min University Arterial blood by [facility] Pulse oximetry Branch Body weight 2020-05-27 08:53:00 100.064 kg [facility] BMI 2020-05-27 08:53:00 39.08 kg/m2 [facility] Body height 2020-05-26 20:30:00 160 cm [facility] Systolic blood 2021-01-20 18:07:00 116 mm[Hg] [facility] pressure Diastolic blood 2021-01-20 18:07:00 73 mm[Hg] [facility] pressure Heart rate 2021-01-20 17:19:00 85 /min [facility] Respiratory rate 2021-01-20 17:19:00 18 /min [facility] Body temperature 2021-01-20 16:19:00 36.5 Mary [facility] Oxygen saturation in 2021-01-20 16:19:00 97 /min [facility] Arterial blood by Pulse oximetry Body height 2021-01-20 13:49:00 160 cm [facility] Body weight 2021-01-20 13:49:00 100.245 kg [facility] BMI 2021-01-20 13:49:00 39.15 kg/m2 [facility] Procedures Procedure Date / Time Performing Clinician Source Performed TRANSTHORACIC ECHO (TTE) 2021-03-08 17:13:54 Sabrina Gray [facility] COMPLETE W/ CONTRAST Medical [facility] BASIC METABOLIC PANEL 2021-03-08 08:34:00 Sabrina Gray [facility] (NA, K, CL, CO2, GLUCOSE, Medica l Branch BUN, CREATININE, CA) CBC WITH DIFF 2021-03-08 08:34:00 Nwokedi, [facility] MAGNESIUM 2021-03-07 09:39:00 Isaac [facility] TROPONIN I 2021-03-07 09:39:00 Raphael Cristobal [facility] BASIC METABOLIC PANEL 2021-03-07 09:39:00 Isaac [facility] (NA, K, CL, CO2, GLUCOSE, Medica l Branch BUN, CREATININE, CA) CBC WITH DIFF 2021-03-07 09:36:00 Isaac [facility] THYROID STIMULATING 2021-03-07 01:37:00 [facility] PROTHROMBIN TIME / INR 2021-03-07 01:37:00 Raphael Cristobal [facility] D-DIMER 2021-03-07 01:37:00 Raphael Cristobal [facility] ACTIVATED PARTIAL 2021-03-07 01:37:00 Raphael Cristobal [facility] THRMPLAS [facility] URINALYSIS 2021-03-06 23:43:00 Néstor Guajardo [facility] XR CHEST 1 VW 2021-03-06 22:42:10 Néstor Guajardo [facility] LIPASE 2021-03-06 22:28:00 Néstor Guajardo [facility] MAGNESIUM 2021-03-06 22:28:00 Néstor Guajardo [facility] TROPONIN I 2021-03-06 22:28:00 Néstor Guajardo [facility] COMP. METABOLIC PANEL 2021-03-06 22:28:00 Néstor Guajardo [facility] ([id number]) Medical Branch CBC WITH DIFF 2021-03-06 22:28:00 Néstor Guajardo [facility] N-TERMINAL PRO-BNP 2021-03-06 22:28:00 Néstor Guajardo [facility] COVID-19 (ID NOW RAPID 2021-03-06 22:28:00 [facility] TESTING) Medical Branch LAB ONLY COVID 2021-03-06 22:28:00 Néstor Guajardo [facility] INTERPRETATION [facility] HB ECG ROUTINE & RHYTHM 2021-03-06 22:18:34 Néstor Guajardo [facility] STRIP [facility] CT ABDOMEN PELVIS W 2021-02-07 17:19:56 Eulogio Melgar [facility] CONTRAST [facility] COMP. METABOLIC PANEL 2021-02-07 16:15:00 Eulogio Melgar [facility] ([id number]) [facility] CBC WITH DIFF 2021-02-07 16:15:00 Eulogio Melgar [facility] URINALYSIS 2021-02-07 16:15:00 Eulogio Melgar [facility] FUNGUS CULTURE 2021-01-20 15:57:00 Mary [facility] spital FUNGUS SMEAR 2021-01-20 15:57:00 [facility] KERATOPLASTY, 2021-01-20 15:18:00 Mary [facility] Mo[facility] spital ENDOTHELIAL, AUTOMATED STRIPPING, DESCEMET'S (DSAEK) HEMOGLOBIN A1C 2021-01-15 14:25:00 [facility] ECG PRE/POST OP 2021-01-15 14:19:19 Maryan Albarado [facility] EXTERNAL PROVIDER RECORDS 2020-07-28 06:01:00 Doctor Unadevorah, [facility] [place] [facility] HOME HEALTH - OTHER 2020-07-16 06:01:00 Doctor Unasstanner, [facility] [place] [facility] ECHO ROUTINE W/DOPPLER 2020-05-27 13:18:17 Annabelle Ramos [facility] COLOR [facility] CAROTID DUPLEX BILATERAL 2020-05-27 12:42:09 Annabelle Ramos [facility] BY VASCULAR LAB [facility] FERRITIN SERUM 2020-05-27 09:25:00 Raphael Cristobal [facility] TROPONIN I 2020-05-27 09:25:00 Annabelle Ramos [facility] TROPONIN I 2020-05-27 05:24:00 Annabelle Ramos [facility] BASIC METABOLIC PANEL 2020-05-27 05:23:00 Richard [facility] (NA, K, CL, CO2, GLUCOSE, Medica l Branch BUN, CREATININE, CA) CBC WITH DIFF 2020-05-27 05:23:00 Richard [facility] URINALYSIS 2020-05-27 03:04:00 Richard [facility] TROPONIN I 2020-05-26 23:21:00 Richard [facility] XR CHEST 1 VW 2020-05-26 18:40:50 [facility] PHOSPHORUS 2020-05-26 18:02:00 Richard [facility] LIPASE 2020-05-26 18:02:00 [facility] MAGNESIUM 2020-05-26 18:02:00 Richard [facility] TROPONIN I 2020-05-26 18:02:[facility] 2020-05-26 18:02:00 Richard [facility] HORMONE [facility] HEPATIC FUNCTION PANEL 2020-05-26 18:02:00 [id number] (ALB,T.PRO,BILI Medical Branch T,BU/BC,ALT,AST,ALK PHOS) BASIC METABOLIC PANEL 2020-05-26 18:02:00 [facility] (NA, K, CL, CO2, GLUCOSE, Medica l Branch BUN, CREATININE, CA) LIPID PANEL ([id number])(TOTAL 2020-05-26 18:02:00 Annabelle Ramos [facility] CHOLESTEROL, Medical Branch TRIGLYCERIDES, HDL) CBC WITH DIFF 2020-05-26 18:02:00 [facility] GLYCOSYLATED HEMOGLOBIN 2020-05-26 18:02:00 Richard [facility] (A1C) [facility] PROTHROMBIN TIME / INR 2020-05-26 18:02:00 [facility] 2020-05-26 18:02:00 Raphael Cristobal [facility] ACTIVATED PARTIAL 2020-05-26 18:02:00 Bridges, Eduardo [facility] COVID-19 (ID NOW RAPID 2020-05-26 18:02:00 Eduardo Bridges [facility] Medical Branch HB ECG ROUTINE & RHYTHM 2020-05-26 17:55:52 Eduardo Bridges [facility] Plan of Care Planned Activity [...] malignant neoplasm of colon (procedure) [code = 641546403] Future Scheduled 1990 [facility] 00:00:00 (Yearly) [code = Breast Cancer Scrn (Yearly)] Future Scheduled 1962 COVID-19 Vaccine (1) [facility] 00:00:00 [code = COVID-19 Vaccine (1)] Future Scheduled COVID[facility]INE [facility] [code = COVID-19 VACCINE (1)] Future Scheduled [facility] (procedure) [code = 666291445] Future Scheduled BREAST CANCER [facility] Test SCREENING [code = BREAST CANCER SCREENING] Future Scheduled COLONOSCOPY SCRE[facility]ING [facility] [code = COLONOSCOPY SCREENING] Future [...] Date/Time Type Type Clinicians Facility Department ID 2021-04-06 2021-04-06 Outpatient [facility] [id number] [facility]a Amador [facility] Clinics 2021-04-02 2021-04-02 Outpatient [facility] [id number] 2021-03-24 2021-03-24 Outpatient [facility] [id number] [facility] 2021-03-23 2021-03-23 Outpatient [facility] [id number] [facility] 2021-03-09 2021-03-09 Transition Mauro Millan [id number] Univers 00:00:00 00:00:00 of Raymond Spears [id number] it [place] [id number] [facility] 403 Branch 2021-03-06 2021-03-08 Emergency Néstor Guajardo [facility] 1.2.840. 114 [id number] Univers 17:19:00 15:15:00 Raphael Cristobal [id number] ity [place] 4[place] [id number] [facility] 081 Branch 2021-03-06 2021-03-06 Emergency X Néstor GUAJARDO [facility] ERT [id number] Univers 17:19:00 17:19:00 ity of [facility] 2021-03-04 2021-03-04 Outpatient [facility] [id number] [facility] 2021-03-03 2021-03-03 Outpatient [facility] [id number] [facility] 2021-02-24 2021-02-24 Documentat Mary Carmen Moise 1.2.840.1 [id number] Methodi 00:00:00 00:00:00 ion L. 92458.1.[address] 3.430.2.7 Hospit a .3.120388 l .8 2021-02-18 2021-02-18 Outpatient [facility] [id number] [facility] 00[facility]:00 [facility] 2021-02-07 2021-02-07 Emergency [facility][note 2] 1.2.840.114 [id number] Univers 11:04:00 13:56:00 Eulogio Hanson [id number] [place] 4.2.7.2.686 [facility] [id number] [place] [address] Branch 2021-02-07 2021-02-07 Emergency X [facility] ERT [id number] Univers 11:04:00 11:04:00 EULOGIO ity of [facility] 2021-02-02 2021-02-02 Outpatient [facility] [id number] [facility] 00:00:00 [facility] ent [facility] 2021-01-20 2021-01-20 [facility] Mary Carmen Moise 1.2.840.1 [id number] Methodi 06:38:00 13:07:[address]310.1.[address] 3.430.2.7 Hospit a .3.977915 l .8 2021-01-20 2021-01-20 Surgery Mary Carmen Moise 1.2.840.1 [id number] Methodi 10:30:00 11:40:[address] 3.430.2.7 Hospit a .3.108353 l .8 2021-01-20 2021-01-20 Anesthesia Lotus Winn 1.2.840.1 [id number] Methodi 10:18:00 11:19:00 Event Maryan Albarado 26634.1.[address] 3.430.2.7 Hospit a .3.544010 l .8 2021-01-20 2021-01-20 Travel 1.2.840.1 1.2.266.712 [id number] Methodi 00:00:00 00:00:[address] 3.430.2.7 0.2.7.3.698 Ho spita .3.670590 084.8 l .8 2021-01-15 2021-01-15 Pre-Admiss Mary Carmen Moise 1.2.840.1 [id number] Methodi 08:31:48 09:31:48 [place] L. 55993.1.[address] Testing 3.430.2.7 Hospit a .3.356096 l .8 2021-01-15 2021-01-15 Travel 1.2.840.1 1.2.096.510 [id number] Methodi 00:00:00 00:00:[address] 3.430.2.7 0.2.7.3.698 Ho spita .3.057211 084.8 l .8 2021-01-05 2021-01-05 Outpatient [facility] [id number] [facility] 00[facility]00 [facility] ent Clinics 2021-01-05 2021-01-05 Outpatient [facility] [id number] [facility] 00:00:00 [facility] ent [facility] 2020-12-22 2020-12-22 Travel 1.2.840.1 1.2.436.131 [id number] Methodi 00:00:00 00:00:[address] 3.430.2.7 0.2.7.3.698 Ho spita .3.689029 084.8 l .8 2020-12-09 2020-12-09 Travel 1.2.840.1 1.2.823.942 [id number] Methodi 00:00:00 00:00:[address] 3.430.2.7 0.2.7.3.698 Ho spita .3.249031 084.8 l .8 2020-11-16 2020-11-16 Outpatient [facility] [id number] [facility] 2020-10-30 2020-10-30 Outpatient [facility] [id number] [facility] 2020-10-09 2020-10-09 Outpatient [facility] [id number] [facility] 2020-09-30 2020-09-30 Outpatient [facility] [id number] [facility] 2020-09-29 2020-09-29 Outpatient [facility] [id number] [facility] 2020-09-23 2020-09-23 Outpatient [facility] [id number] [facility] 2020-09-01 2020-09-01 Outpatient [facility] [id number] [facility] 2020-08-31 2020-08-31 Outpatient [facility] [id number] [facility] 2020-08-17 2020-08-17 Outpatient [facility] [id number] [facility] 2020-08-12 2020-08-12 Outpatient [facility] [id number] [facility] 2020-08-10 2020-08-10 Outpatient [facility] [id number] [facility] 2020-08-06 2020-08-06 Outpatient [facility] [id number] [facility] 2020-07-28 2020-07-28 Orders Doctor OSIEL 1.2.840.114 [id number] 00:00:00 00:00:00 Only Unassigned, STEPHANIE 350.1.13.10 [facility] 4.2.7.2.686 [id number] 2020-07-28 2020-07-28 Orders Doctor CARTAGENA 1.2.840.114 [id number] Univers 00:00:00 00:00:00 Only Unassigned, STEPHANIE [id number] ity of [facility] 4.2.7.2.686 Victor Manuel as [id number] [address] 2020-07-16 2020-07-16 Orders Doctor CARTAGENA 1.2.840.114 [id number] 00:00:00 00:00:00 Only Unassigned, STEPHANIE 350.1.13.10 [facility] 4.2.7.2.686 [id number] [facility] 2020-07-16 2020-07-16 Orders Doctor CARTAGENA 1.2.840.[id number] [facility] 00:00:00 00:00:00 Only Unassigned, STEPHANIE 350.1.13.10 ity of [place] [facility] 4.2.7.2.686 Victor Manuel as [id number] [address] 2020-07-10 2020-07-10 Outpatient [facility] [id number] [facility] 2020-06-29 2020-06-29 Outpatient [facility] [id number] [facility] 2020-06-08 2020-06-08 Outpatient [facility] [id number] [facility] 2020-05-28 2020-05-28 Transition Mauro Pendleton 1.2.840.114 [id number] 00:00:00 00:00:00 of Care Manuelito Spears [id number] [place] 4.2.7.2.686 [id number] 403 2020-05-28 2020-05-28 Transition Mauro Pendleton 1.2.840.114 [id number] [facility] 00:00:00 00:00:00 of Care Manuelito Spears 350.1.13.10 [place] [phone] [facility] [address] 2020-05-26 2020-05-27 Emergency Eduardo Bridges [facility] 1.2.840. 114 [id number] 12:52:00 14:03:00 Raphael Cristobal 350.1.13.10 [place] 4.2.7.2.686 [place] [phone] [facility] 2020-05-26 2020-05-27 Emergency Eduardo Bridges [facility] 1.2.840. [id number] [facility] 12:52:00 14:03:00 Raphael Cristobal 350.1.13.10 ity [place] [phone] [address] 2020-05-27 2020-05-27 Telephone [facility] [id number] 00:00:00 00:00:00 Raji Hanson 350.1.13.10 [place] 4.2.7.2.686 Professio [id number] [address] 2020-05-27 2020-05-27 Telephone [facility] [id number] Univers 00:00:00 00:00:00 Raji Hanson 350.1.13.10 [place]y [place] Profess[place] [phone] Ia dical [address] 2020-05-26 2020-05-26 Outpatient X LEVAR DELAILA [facility] [id number] Univers 12:52:00 12:52:00 RAPHAEL kauffman [facility] 2020-04-07 2020-04-07 [facility] [id number] 09:10:00 09:10:00 Alumnize Lincoln s [facility] 2020-03-30 2020-03-30 [facility] [id number] 09:24:00 09:24:00 t Boyden Boyden [employer] [facility] 2020-03-24 2020-03-24 [facility] [id number] 14:30:00 14:30:00 t [facility] 2020-03-24 2020-03-24 Outpatient [facility] [id number] [facility]00 [facility] 2020-03-23 2020-03-23 [facility] [id number] 10:32:00 10:32:00 t Boyden [employer] - [facility] Outpati ent Clinics 2020-03-05 2020-03-05 [facility] [id number] 15:11:00 15:11:00 t [facility] Outpati ent Clinics 2020-03-05 2020-03-05 [facility] [id number] 14:06:00 14:06:00 t Boyden [employer] - [facility] Outpati ent Clinics 2020-03-05 2020-03-05 [facility] [id number] 11:21:00 11:21:00 t Boyden [employer] - [facility] Outpati ent Clinics 2020-03-03 2020-03-03 [facility] [id number] 13:30:00 13:30:00 t Boyden [employer] - [facility] Medicine Outpati ent Clinics 2020-02-10 2020-02-10 [facility] [id number] 13:30:00 13:30:00 t Boyden [employer] - [facility] Outpati ent Clinics Results Test Description Test Time Test Comments Results Result Sourc e Comments LAB [facility] [facility] 15:07:18 rpretation/Recomme Branch ndations:Molecular NAAT Tests for Active Infection with the SARS-CoV-2 Virus:The patient has currently tested negative for the SARS-CoV-2 virus that causes COVID-19 illness. This most likely indicates that the patient does not have an active infection with the SARS-CoV-2 virus. However, infection is not completely ruled out as the false negative rate for molecular NAAT testing using a nasopharyngeal sample can be up to 30%, mostly dependent on the timing of sample collection in relation to illness onset and any deficiencies in sampling techniques. If the patient has symptoms concerning for COVID-19 illness, a repeat NAAT test (PCR, Rapid ID Now, etc.) should be performed, at which time the SARS-CoV-2 virus - if present - may have reached a detectable viral load (usually peaking by the end of the first week of symptoms). Tests for IgM and/or IgG Antibodies to the SARS-CoV-2 Virus:Testing for IgM and IgG antibodies approximately 3 weeks after illness onset will likely indicate if the patient has produced antibodies to the SARS-CoV-2 virus. However, some patients may take longer to develop detectable antibodies, while others infected with SARS-CoV-2 may never develop antibodies, particularly those who have had mild or asymptomatic illness. Of note, if the patient has been vaccinated earlier than 1-2 weeks prior to antibody testing, any positive SARS-CoV-2 IgG antibody result is likely due to vaccination. The specific duration and strength of immunity from SARS-CoV-2 IgG antibodies is highly variable between individuals and is dependent on a variety of factors, including infection vs. vaccination response, initial infection severity, the strength of the patient's own immune system, and the variants to which the patient has been exposed. ? Interpretation Result Comments:These interpretation comments are based upon all COVID-19 testing the patient has had at [facility], including molecular NAAT testing (more commonly known as PCR testing and Rapid ID Now testing) and antibody testing. It does not take into account any testing that a patient has had outside of the [facility] medical record. [facility] LABORATORY SERVICESCOVID [id number] Rapid ID NOW (no units) ? ? Date ? Value ? 03/06/2021 ? Not Detected ? ? ? 05/26/2020 ? Not Detected ? [facility] LABORATORY SERVICES BASIC METABOLIC PANEL (NA, K, CL, CO2, GLUCOSE, BUN, 2021-02 10:54:50 CREATININE, CA) Test Item Value Reference Range Interpretation Comme nts NA (test code = 2414131892) 139 mmol/L 135-145 K (test code = 7540198413) 3.8 mmol/L 3.5-5.0 CL (test code = 1633575620) 103 mmol/L 98-108 CO2 TOTAL (test code = 27 mmol/L 23-31 0412507010) AGAP (test code = 6749279766) 2-16 BUN (test code = 5783238286) 16 mg/dL 7-23 GLUCOSE (test code = 1078462276) 109 mg/dL 70-110 CREATININE (test code = 0.90 mg/dL 0.50-1.04 2952282822) CALCIUM (test code = 1649334958) 9.2 mg/dL 8.6-10.6 eGFR (test code = 9963032602) mL/min/1.73m2 GI (test code = GI) Association of Glomerular Filtration Rate (GFR) and Staging of Kidney Disease* + +--------- + ----+| GFR (mL/min/1.73 m2) ?| With Kidney Damage ?| ?Without Kidney Damage+ +--- + +| ?>90 ?| ?Stage one ?| ? Normal ?+ +-------- + -----+| ?60-89 ?| ?Stage two ?| ? Decreased GFR ? + +--------- + ----+| ?30-59 ?| ?Stage three ?| ? Stage three ? + +--------- + ----+| ?15-29 ?| ?Stage four ? | ? Stage four ?+ +-------- + -----+| ?<15 (or dialysis) ? ?| ?Stage five ? | ? Stage five ?+ +-------- + -----+ *Each stage assumes the associated GFR level has been in effect for at least three months. ?Stages 1 to 5, with or without kidney disease, indicate chronic kidney disease. Notes: Determination of stages one and two (with eGFR >59mL/min/1.73 m2) requires estimation of kidney damage for at least three months as defined by structural or functional abnormalities of the kidney, manifested by either:Pathological abnormalities or Markers of kidney damage (including abnormalities in the composition of the blood or urine or abnormalities in imaging tests). [facility] WITH [id number] 10:13:27 Test Item Value Reference Range Interpretation Comments WBC (test code = See_Comment [Automated 6690-2) message] The sy stem which generated this result transmitted reference range : 4.30 - 11.10 10*3/?L. The reference range was not used to interpret this result as normal/abnormal . RBC (test code = See_Comment L [Automated 789-8) message] The sy stem which generated this result transmitted reference range : 3.93 - 5.25 10*6/?L. The reference range was not used to interpret this result as normal/abnormal . HGB (test code = 11.1 g/dL 11.6-15.0 L 718-7) HCT (test code = 33.9 % 35.7-45.2 L 4544-3) MCV (test code = 89.9 fL 80.6-95.5 787-2) MCH (test code = 29.4 pg 25.9-32.8 785-6) MCHC (test code = 32.7 g/dL 31.6-35.1 786-4) RDW-SD (test code = 46.5 fL 39.0-49.9 70968-7) RDW-CV (test code = 14.5 % 12.0-15.5 788-0) PLT (test code = See_Comment [Automated 777-3) message] The sy stem which generated this result transmitted reference range : 166 - 358 10*3/ ?L. The reference r jj was not used to interpret this result as normal/abnormal . MPV (test code = 9.7 fL 9.5-12.9 81847-9) NRBC/100 WBC (test See_Comment [Automat ed code = 6177508495) message] The system which generated this result transmitted reference range : 0.0 - 10.0 /100 WBCs. The refer ence range was not u sed to interpret th is result as normal/abnormal . NRBC x10^3 (test code <0.01 See_Comment [Auto mated = 5013530596) message] The s ystem which generated this result transmitted reference range : 10*3/?L. The reference range was not used to interpret this result as normal/abnormal . GRAN MAT (NEUT) % 56.7 % (test code = 770-8) IMM GRAN % (test code 0.50 % = 0703433116) LYMPH % (test code = 33.2 % 736-9) MONO % (test code = 6.7 % 5905-5) EOS % (test code = 2.6 % 713-8) BASO % (test code = 0.3 % 706-2) GRAN MAT x10^3(ANC) 5.48 10*3/uL 1.88-7.09 (test code = 5215691970) IMM GRAN x10^3 (test 0.05 10*3/uL 0.00-0.06 code = 1218566836) LYMPH x10^3 (test code 3.21 10*3/uL 1.32-3.29 = 731-0) MONO x10^3 (test code 0.65 10*3/uL 0.33-0.92 = 742-7) EOS x10^3 (test code = 0.25 10*3/uL 0.03-0.39 711-2) BASO x10^3 (test code 0.03 10*3/uL 0.01-0.07 = 704-7) Lab Interpretation Abnormal (test code = 97324-5) [facility] [id number] 11:31:59 Test Item Value Reference Interpretation Comments Range TROPONIN I (test 0.001 ng/mL See_Comment [Automated code = 2048875787) message] The system which generated this result transmitted reference range : <=0.034. The reference range was not used to interpret this result as normal/abnormal . GI (test code = Reference (Normal) GI) Range (defined by the 99th percentile reference limit): <= 0.034 ng/mL Note: Cardiac troponin begins to rise 3-4 hours after the onset of ischemia. Repeat in 4-6 hours if the sample was drawn within 3-4 hours of the onset of the symptom and found normal. Diagnosis of myocardial injury is made with acute changes in cTn concentrations with at least one serial sample above the 99th percentile upper reference limit (URL), taken together with the patient's clinical presentation. Biotin has been reported to cause a negative bias, interpret results relative to patient's use of biotin. Lab Interpretation Normal (test code = 13383-8) [facility] (NA, K, CL, CO2, GLUCOSE, BUN, CREATININE, CA)2021-03-07 11:21:57 Test Item Value Reference Range Interpretation Comments NA (test code = 139 mmol/L 135-145 8144475805) K (test code = 3.4 mmol/L 3.5-5.0 L 0796183252) CL (test code = 103 mmol/L 98-108 5387165272) CO2 TOTAL (test code = 28 mmol/L 23-31 0070726897) AGAP (test code = 2-16 1466588391) BUN (test code = 12 mg/dL 7-23 6489251423) GLUCOSE (test code = 100 mg/dL 70-110 5462668352) CREATININE (test code = 0.72 mg/dL 0.50-1.04 9928649977) CALCIUM (test code = 9.2 mg/dL 8.6-10.6 5743493597) eGFR (test code = mL/min/1.73m2 9272382036) GI (test code = GI) Association of Glomerular Filtration Rate (GFR) and Staging of Kidney Disease* + --+ --+ ------+| GFR (mL/min/1.73 m2) ?| With Kidney Damage ?| ?Without Kidney Damage+ --------+ --------+ +| ?>90 ?| ?Stage one ?| ? Normal ?+ ---+ ---+ -------+| ?60-89 ?| ?Stage two ?| ? Decreased GFR ? + --+ --+ ------+| ?30-59 ?| ?Stage three ?| ? Stage three ? + --+ --+ ------+| ?15-29 ?| ?Stage four ? | ? Stage four ?+ ---+ ---+ -------+| ?<15 (or dialysis) ? ?| ?Stage five ? | ? Stage five ?+ ---+ ---+ -------+ *Each stage assumes the associated GFR level has been in effect for at least three months. ?Stages 1 to 5, with or without kidney disease, indicate chronic kidney disease. Notes: Determination of stages one and two (with eGFR >59mL/min/1.73 m2) requires estimation of kidney damage for at least three months as defined by structural or functional abnormalities of the kidney, manifested by either:Pathological abnormalities or Markers of kidney damage (including abnormalities in the composition of the blood or urine or abnormalities in imaging tests). Lab Interpretation Abnormal (test code = 78578-1) [facility] 11:21:57 Test Item Value Reference Range Interpretation Comments MAGNESIUM (test code = 3375419927) 1.8 mg/dL 1.7-2.4 Lab Interpretation (test code = Normal 36220-6) [facility] WITH [id number] 10:55:38 Test Item Value Reference Range Interpretation Comments WBC (test code = See_Comment [Automated 9290-2) message] The sy stem which generated this result transmitted reference range : 4.30 - 11.10 10*3/?L. The reference range was not used to interpret this result as normal/abnormal . RBC (test code = See_Comment L [Automated 529-8) message] The sy stem which generated this result transmitted reference range : 3.93 - 5.25 10*6/?L. The reference range was not used to interpret this result as normal/abnormal . HGB (test code = 11.3 g/dL 11.6-15.0 L 718-7) HCT (test code = 34.7 % 35.7-45.2 L 4544-3) MCV (test code = 89.2 fL 80.6-95.5 787-2) MCH (test code = 29.0 pg 25.9-32.8 785-6) MCHC (test code = 32.6 g/dL 31.6-35.1 786-4) RDW-SD (test code = 45.5 fL 39.0-49.9 08365-5) RDW-CV (test code = 14.2 % 12.0-15.5 788-0) PLT (test code = See_Comment [Automated 777-3) message] The sy stem which generated this result transmitted reference range : 166 - 358 10*3/ ?L. The reference r jj was not used to interpret this result as normal/abnormal . MPV (test code = 9.5 fL 9.5-12.9 70395-3) NRBC/100 WBC (test See_Comment [Automat ed code = 7263121213) message] The system which generated this result transmitted reference range : 0.0 - 10.0 /100 WBCs. The refer ence range was not u sed to interpret th is result as normal/abnormal . NRBC x10^3 (test code <0.01 See_Comment [Auto mated = 2540031066) message] The s ystem which generated this result transmitted reference range : 10*3/?L. The reference range was not used to interpret this result as normal/abnormal . GRAN MAT (NEUT) % 58.3 % (test code = 770-8) IMM GRAN % (test code 0.50 % = 1921158680) LYMPH % (test code = 30.5 % 736-9) MONO % (test code = 8.2 % 5905-5) EOS % (test code = 2.2 % 713-8) BASO % (test code = 0.3 % 706-2) GRAN MAT x10^3(ANC) 5.52 10*3/uL 1.88-7.09 (test code = 7658357730) IMM GRAN x10^3 (test 0.05 10*3/uL 0.00-0.06 code = 8284922887) LYMPH x10^3 (test code 2.89 10*3/uL 1.32-3.29 = 731-0) MONO x10^3 (test code 0.78 10*3/uL 0.33-0.92 = 742-7) EOS x10^3 (test code = 0.21 10*3/uL 0.03-0.39 711-2) BASO x10^3 (test code 0.03 10*3/uL 0.01-0.07 = 704-7) Lab Interpretation Abnormal (test code = 46051-2) [facility] STIMULATING [id number] 03:02:03 Test Item Value Reference Range Interpretation Comments TSH (test code = See_Comment Biotin has been 9588159651) reported to cau se a negative bias, interpret resul ts relative to pat marioncamden's use of biotin. [Automated mess age] The system [employer] generated this result transmitted ref erence range: 0.45 - 4 .70 mIU/L. The refe rence range was not u sed to interpret this result as normal/abnor mal. Lab Interpretation (test Normal code = 56661-8) [facility] HospitalD-[id number] 02:24:42 Test Item Value Reference Interpretation Comments Range D-DIMER (test code = See_Comment H [Autom ated 9563312231) message] The system which generated this result transmitted reference range : <0.41 ?g/mL (FEU). The reference range was not used to interpret this result as normal/abnormal . GI (test code = This test may be GI) used in conjunction with a clinical pretest probability (PTP) assessment model to exclude venous thromboembolism (VTE) in patients suspected of deep venous thrombosis (DVT) and pulmonary embolism (PE) A D-Dimer value less than 0.50 ?g/ml (FEU) has a negative predicative value of 96 to 100% (95% CI)and 97 to 100% (95% CI) as an aid in the diagnosis of deep vein thrombosis (DVT) and pulmonary embolism when there is low or moderate pretest probability of PE or DVT. D-Dimer values are expressed in initial fibrinogen equivalent units (FEU)" The assay results should be used with other information, including the clinical context, in forming a diagnosis. Lab Interpretation Abnormal (test code = 37433-0) [facility] THRMPLAS [id number] 02:18:00 Test Item Value Reference Range Interpretation Comments APTT Patient (test See_Comment [Automat ed code = 3173-2) message] The system which generated this result transmitted reference range : 23 - 38 Seconds . The reference range was not used to interpr et this result as normal/abnormal . GI (test code = GI) The [facility] patient population mean normal value for aPTT is 30 seconds. Lab Interpretation Normal (test code = 29608-3) [facility] HospitalPROTHROMBIN [facility] / [id number] 02:16:04 Test Item Value Reference Range Interpretation Comments PROTIME PATIENT (test See_Comment [Auto mated message] code = 5964-2) The system uniRow generated this result transmitted ref erence range: 12.0 - 1 4.7 Seconds. The re ference range was not u sed to interpret this result as normal/abnor mal. INR (test code = 6301-6) Nor mal INR <1.1; Warfarin Therap eutic range 2.0 to 3. 0 or 2.5 to 3.5, dep ending upon the indica tions. Lab Interpretation (test Normal code = 06339-1) [facility]21-[facility] 00:08:27 Test Item Value Reference Range Interpretation Comments APPEARANCE (test code = Clear Clear 7810107554) COLOR (test code = Yellow Yellow 6909398819) PH (test code = 4.8-8.0 8963505221) SP GRAVITY (test code = 1.003-1.030 8979410596) GLU U QUAL (test code = Normal Normal 1569663774) BLOOD (test code = Negative Negative 8811908099) KETONES (test code = Negative Negative 8400390087) PROTEIN (test code = Negative Negative 2887-8) UROBILIN (test code = Normal Normal 3540600128) BILIRUBIN (test code = Negative Negative 6246359293) NITRITE (test code = Negative Negative 0625783465) LEUK LIAS (test code = Negative Negative 8124812673) RBC/HPF (test code = See_Comment [Autom ated message] 1418426352) The system [employer] generated this result transmitted ref erence range: 0 - 3 HP F. The reference range was not used to int erpret this result as normal/abnormal . WBC/HPF (test code = See_Comment [Autom ated message] 6834368620) The system [employer] generated this result transmitted ref erence range: 0 - 5 HP F. The reference range was not used to int erpret this result as normal/abnormal . BACTERIA (test code = Few Negative A 2759853010) MUCOUS (test code = Slight Negative LPF A 1674197291) SQ EPITH (test code = HPF 2606235262) Lab Interpretation (test Abnormal code = 64233-7) [facility] 1 [id number] 00:04:41 No acute cardiopulmonary disease. Preliminary Report Dictated by Resident: Stu Delong MD., have reviewed this study and agree with the abovereport.EXAM: XR CHEST 1 VW 03/06/2021 5:31 PM HISTORY: 70 years-old Female with chest pain COMPARISON: Chest radiograph 05/26/2020 TECHNIQUE:AP chest radiograph. FINDINGS: Lungs are clear, well-expanded, without focal consolidation, pleuraleffusion, or pneumothorax. The cardiomediastinal silhouette is normal in size. No acute osseous abnormalities. [facility], Radiant Results Inft User - 03/06/2021 7:05 PM CDTFormatting of this note might be dif ferent from the original.EXAM: XR CHEST 1 VW 03/06/2021 5:31 PMHISTORY: 70 years- old Female with chestpain COMPARISON: Chest radiograph 05/26/2020TECHNIQUE: AP chest radiograph.FINDINGS:Lungs are clear,well-expanded, without focal consolidation, pleuraleffusion, or pneumothorax.The cardiomediastinal silhouette is normal in size.No acute osseous abnormalities.IMPRESSIONNo acute cardiopulmonary disease.Preliminary Report Dictated by Resident: Stu Gracia MD., have reviewed this study and agree with the abovereport. [facility] HospitalTR[facility] [id number] 23:16:13 Test Item Value Reference Interpretation Comments Range TROPONIN I (test 0.001 ng/mL See_Comment [Automated code = 6465089676) message] The system which generated this result transmitted reference range : <=0.034. The reference range was not used to interpret this result as normal/abnormal . GI (test code = Reference (Normal) GI) Range (defined by the 99th percentile reference limit): <= 0.034 ng/mL Note: Cardiac troponin begins to rise 3-4 hours after the onset of ischemia. Repeat in 4-6 hours if the sample was drawn within 3-4 hours of the onset of the symptom and found normal. Diagnosis of myocardial injury is made with acute changes in cTn concentrations with at least one serial sample above the 99th percentile upper reference limit (URL), taken together with the patient's clinical presentation. Biotin has been reported to cause a negative bias, interpret results relative to patient's use of biotin. Lab Interpretation Normal (test code = 78105-5) [facility] HospitalN-TERMINAL [id number] 23:12:53 Test Item Value Reference Range Interpretation Comments NT-proBNP (test code 55 pg/mL See_Comment [Autom ated = 0869785827) message] The system which generated this result transmitted reference range : <=125. The reference range was not used to interpret this result as normal/abnormal . GI (test code = GI) Biotin has been reported to cause a negative bias, interpret results relative to patient's use of biotin. Lab Interpretation Normal (test code = 84300-8) [facility]2021-08-07 23:06:13 Test Item Value Reference Range Interpretation Comments MAGNESIUM (test code = 6195089119) 1.4 mg/dL 1.7-2.4 L Lab Interpretation (test code = Abnormal 87026-9) [facility] Hospital[facility]. METABOLIC PANEL (67385)2021-03-06 23:05:33 Test Item Value Reference Range Interpretation Comments NA (test code = 139 mmol/L 135-145 2089001748) K (test code = 3.6 mmol/L 3.5-5.0 9105529584) CL (test code = 103 mmol/L 98-108 5906935803) CO2 TOTAL (test code = 26 mmol/L 23-31 4753158461) AGAP (test code = 2-16 6111430518) BUN (test code = 10 mg/dL 7-23 2287093849) GLUCOSE (test code = 131 mg/dL 70-110 H 4770068330) CREATININE (test code = 0.74 mg/dL 0.50-1.04 6879923766) TOTAL BILI (test code = 0.5 mg/dL 0.1-1.7 7588575804) CALCIUM (test code = 9.7 mg/dL 8.6-10.6 6370392888) T PROTEIN (test code = 7.7 g/dL 6.3-8.2 8799133253) ALBUMIN (test code = 4.3 g/dL 3.5-5.0 7301911315) ALK PHOS (test code = 102 U/L 34-122 9701836302) ALTv (test code = 14 U/L 5-35 1742-6) AST(SGOT) (test code = 24 U/L 13-40 0246354002) eGFR (test code = mL/min/1.73m2 4361038668) GI (test code = GI) Association of Glomerular Filtration Rate (GFR) and Staging of Kidney Disease* + --+ --+ ------+| GFR (mL/min/1.73 m2) ?| With Kidney Damage ?| ?Without Kidney Damage+ --------+ --------+ +| ?>90 ?| ?Stage one ?| ? Normal ?+ ---+ ---+ -------+| ?60-89 ?| ?Stage two ?| ? Decreased GFR ? + --+ --+ ------+| ?30-59 ?| ?Stage three ?| ? Stage three ? + --+ --+ ------+| ?15-29 ?| ?Stage four ? | ? Stage four ?+ ---+ ---+ -------+| ?<15 (or dialysis) ? ?| ?Stage five ? | ? Stage five ?+ ---+ ---+ -------+ *Each stage assumes the associated GFR level has been in effect for at least three months. ?Stages 1 to 5, with or without kidney disease, indicate chronic kidney disease. Notes: Determination of stages one and two (with eGFR >59mL/min/1.73 m2) requires estimation of kidney damage for at least three months as defined by structural or functional abnormalities of the kidney, manifested by either:Pathological abnormalities or Markers of kidney damage (including abnormalities in the composition of the blood or urine or abnormalities in imaging tests). Lab Interpretation Abnormal (test code = 26219-4) [facility]05[facility]33 Test Item Value Reference Range Interpretation Comments LIPASE (test code = 4843205073) 112 U/L 0-220 Lab Interpretation (test code = Normal 56276-1) [facility] NOW RAPID TESTING)2021-03-06 22:49:11 Test Item Value Reference Range Interpretation Comments SARS-CoV-2 Rapid ID NOW Not Detected Not Detected (test code = 17877-5) GI (test code = GI) ID NOW COVID-19 Assay is an isothermal nucleic acid amplification test intended for the qualitative detection of nucleic acid from SARS-CoV-2 viral RNA in nasopharyngeal (WIRE LATHER) specimens. It is used under Emergency Use Authorization (EUA) by FDA. The limit of detection (LOD) of the assay is 125 Genome Equivalents/mL. A positive result is indicative of the presence of SARS-CoV-2 RNA. ?Clinical correlation with patient history and other diagnostic information is necessary to determine patient infection status. A negative (Not Detected) result does not preclude SARS-CoV-2 infection. In patients with clinical symptoms and other tests that are consistent with SARS-CoV-2 infection, negative results should be treated as presumptive negative and a new specimen should be tested with alternative PCR molecular test. Invalid: Please collect a new specimen for repeat patient testing if clinically indicated. Lab Interpretation Normal (test code = 16623-4) [facility] WITH [id number] 22:36:13 Test Item Value Reference Range Interpretation Comments WBC (test code = See_Comment [Automated 7870-2) message] The sy stem which generated this result transmitted reference range : 4.30 - 11.10 10*3/?L. The reference range was not used to interpret this result as normal/abnormal . RBC (test code = See_Comment [Automated 412-8) message] The sy stem which generated this result transmitted reference range : 3.93 - 5.25 10*6/?L. The reference range was not used to interpret this result as normal/abnormal . HGB (test code = 12.1 g/dL 11.6-15.0 718-7) HCT (test code = 36.4 % 35.7-45.2 4544-3) MCV (test code = 87.5 fL 80.6-95.5 787-2) MCH (test code = 29.1 pg 25.9-32.8 785-6) MCHC (test code = 33.2 g/dL 31.6-35.1 786-4) RDW-SD (test code = 44.5 fL 39.0-49.9 43560-4) RDW-CV (test code = 14.1 % 12.0-15.5 788-0) PLT (test code = See_Comment [Automated 777-3) message] The sy stem which generated this result transmitted reference range : 166 - 358 10*3/ ?L. The reference r jj was not used to interpret this result as normal/abnormal . MPV (test code = 9.2 fL 9.5-12.9 L 38762-2) NRBC/100 WBC (test See_Comment [Automat ed code = 0552341344) message] The system which generated this result transmitted reference range : 0.0 - 10.0 /100 WBCs. The refer ence range was not u sed to interpret th is result as normal/abnormal . NRBC x10^3 (test code <0.01 See_Comment [Auto mated = 8137794230) message] The s ystem which generated this result transmitted reference range : 10*3/?L. The reference range was not used to interpret this result as normal/abnormal . GRAN MAT (NEUT) % 57.8 % (test code = 770-8) IMM GRAN % (test code 0.70 % = 6110548656) LYMPH % (test code = 32.9 % 736-9) MONO % (test code = 6.0 % 5905-5) EOS % (test code = 2.3 % 713-8) BASO % (test code = 0.3 % 706-2) GRAN MAT x10^3(ANC) 4.97 10*3/uL 1.88-7.09 (test code = 5201034763) IMM GRAN x10^3 (test 0.06 10*3/uL 0.00-0.06 code = 2695163434) LYMPH x10^3 (test code 2.83 10*3/uL 1.32-3.29 = 731-0) MONO x10^3 (test code 0.52 10*3/uL 0.33-0.92 = 742-7) EOS x10^3 (test code = 0.20 10*3/uL 0.03-0.39 711-2) BASO x10^3 (test code 0.03 10*3/uL 0.01-0.07 = 704-7) Lab Interpretation Abnormal (test code = 66854-6) [facility] [id number] 05:15:11 Test Item Value Reference Range Interpretation Comments Fungus culture No growth Specimen isolate (test after 4 weeks InformationSp ecimen code = 1441) of Source: TissueS pecimen incubation. Site: [facility] W [id number] 18:16:42 1. ?Diffuse bladder wall thickening is consistent with confirmed cystitis. 2. ?Diverticulosis. Hepatomegaly and hepatic steatosis. Postsurgicalchanges of cholecystectomy and hysterectomy. Nonobstructing punctatecalculi are seen in both kidneys. Preliminary Report Dictated by Resident: Scott Maldonado ?MD Cristobal., have reviewed this study and agree with theabove report.EXAM: CT ABDOMEN PELVIS W CONTRAST HISTORY: 70 years-old Female: Abdominal pain, acute, nonlocalized lower abd pain . "Urinary retention since yesterday. Complains ofabdominal pain and nausea" TECHNIQUE: Contiguous axial imaging from the level of the lung basesthrough the proximal thighs was performed with intravenous cont rast.Coronal and sagittal reconstructions were obtained. COMPARISON: None FINDINGS: LOWER THORAX: The lung bases are clear aside from dependent, bibasilaratelectasis. The heart is mildly enlarged. LIVER: The liver is mildly enlarged, and measures 18.4 cm in thecraniocaudal dimension. No focal hepatic lesion is seen. The hepaticparenchyma is diffusely hypoattenuating. GALLBLADDER AND BILIARY TREE: Post surgical changes of cholecystectomy areseen. ?No intrahepatic biliary ductal dilation is visualized. Prominence ofthe common bile duct to 0.7 cm in diameter is within expected limits of ageand reservoir phenomenon. SPLEEN: The spleen appears unremarkable. PANCREAS: No ductal dilation or masses arevisualized. Diffuse fattyatrophy is noted. ADRENAL GLANDS: No adrenal masses are seen. KIDNEYS: Nonobstructing stones measure up to 0.3 cm bilaterally. Nohydronephrosis or solid mass is present. Subcentimeter hypodensities aretoo small to characterize, but statistically represent simple cysts. PELVIS/BLADDER: The bladder is drained by Mendoza catheter. The wall isdiffusely thickened out of proportion to the degree of collapse.Intraluminal air is likely iatrogenic. Postsurgical changes of hysterectomyare noted. The bilateral ovaries are not definitively discerned. Pelvicphleboliths are present. GI TRACT: The colon is mostly collapsed without evidence of muralenhancement or pericolonic fat stranding.Diverticula are predominantlyseen in the sigmoid and descending colon. ?The appendix is not definitivelyvisualized, however, no secondary signs of appendicitis are seen. Thestomach and small bowel are mostly collapsed, which limits evaluation. PERITONEUM AND RETROPERITONEUM: No intra- abdominal free air or fluidcollection is visualized. Fat-containing ventral hernias are seen. LYMPH NODES: No enlargedintra-abdominal or pelvic lymph nodes are found. VESSELS: Moderate atherosclerotic calcifications affect the abdominalaorta, bilateral common iliac arteries, and their branch vessels. BONES AND SOFT TISSUES: No suspicious lytic or sclerotic bony lesions arepresent. Spondylotic changes are manifested by facet arthropathy. [facility], Radiant Results Inft User - 02/07/2021 1:17 PM CDT EXAM: CT ABDOMEN PELVIS W CONTRASTHISTORY: 70 years-old Female: Abdominal pain, acute, nonlocalized lower abd pain . "Urinary retention since yesterday. Complains ofabdominal pain and nausea"TECHNIQUE: Contiguous axial imaging from the level of the lung basesthrough the proximal thighs was performed with intravenous contrast.Coronal and sagittal reconstructions were obtained. COMPARISON: NoneFINDINGS:LOWER THORAX: The lung bases are clear aside from dependent, bibasilaratelectasis. The heart is mildly enlarged.LIVER: The liver is mildly enlarged, and measures 18.4 cm in thecraniocaudal dimension. No focal hepatic lesion is seen. The hepaticparenchyma is diffusely hypoattenuating. GALLBLADDER AND BILIARY TREE: Post surgical changes of cholecystectomy areseen.No intrahepatic biliary ductal dilation is visualized. Prominence ofthe common bile duct to 0.7 cm in diameter is within expected limits of ageand reservoir phenomenon. SPLEEN: The spleen appears unrema rkable.PANCREAS: No ductal dilation or masses are visualized. Diffuse fattyatrophy is noted.ADRENAL GLANDS: No adrenal masses are seen.KIDNEYS: Nonobstructing stones measure up to 0.3 cm bilaterally. Nohydronephrosis or solid mass is present. Subcentimeter hypodensities aretoo small to characterize, but statistically represent simple cysts. PELVIS/BLADDER: The bladder is drained by Mendoza catheter. The wall isdiffusely thickened out of proportion to the degree of collapse.Intraluminal air is likely iatrogenic. Postsurgical changes of hysterectomyare noted. The bilateral ovaries are not definitively discerned. Pelvicphleboliths are present.GI TRACT: The colon is mostly collapsed without evidence of muralenhancement or pericolonic fat stranding. Diverticula are predominantlyseen in the sigmoid and descending colon. The appendix is not definitivelyvisualized, however, no secondary signs of appendicitis are seen. Thestomach and small bowel are mostly collapsed, which limits evaluation.PERITONEUM AND RETROPERITONEUM: No intra-abdominal free air or fluidcollection is visualized. Fat-containing ventral hernias are seen.LYMPH NODES: No enlarged intra-abdominal or pelvic lymph nodes are found.VESSELS: Moderate atherosclerotic calcifications affect the abdominalaorta, bilateral common iliac arteries, and their branch vessels.BONES AND SOFT TISSUES: No suspicious lytic or sclerotic bony lesions arepresent. Spondylotic changes are manifested by facet arthropathy.IMPRESSION1. Diffuse bladder wall thickening is consistent with confirmed cystitis.2. Diverticulosis. Hepatomegaly and hepatic steatosis. Postsurgicalchanges of cholecystectomy and hysterectomy. Nonobstructing punctatecalculi are seen in both kidneys.Preliminary Report Dictated by Resident: Scott Henderson MD., have reviewed this study and agree with theabove report.[facility] [id number] 17:06:32 Test Item Value Reference Range Interpretation Comments APPEARANCE (test code = Cloudy Clear A 8972955780) COLOR (test code = Yellow Yellow 2831858921) PH (test code = 4.8-8.0 2471216751) SP GRAVITY (test code = 1.003-1.030 8627510412) GLU U QUAL (test code = Normal Normal 7308741116) BLOOD (test code = 1+ Negative A 3674847467) KETONES (test code = Negative Negative 6391861432) PROTEIN (test code = Negative Negative 2887-8) UROBILIN (test code = Normal Normal 2353707403) BILIRUBIN (test code = Negative Negative 4454100152) NITRITE (test code = Negative Negative 9126398600) LEUK LISA (test code = 500/uL Negative A 9271446807) RBC/HPF (test code = See_Comment H [Autom ated message] 2881974386) The system Platial generated this result transmitted ref erence range: 0 - 3 HP F. The reference range was not used to int erpret this result as normal/abnormal . WBC/HPF (test code = >182 See_Comment H [Autom ated message] 5361114323) The system [employer] generated this result transmitted ref erence range: 0 - 5 HP F. The reference range was not used to int erpret this result as normal/abnormal . BACTERIA (test code = Few Negative A 6139671050) MUCOUS (test code = Moderate Negative LPF A 6098386488) SQ EPITH (test code = HPF 1492303178) WBC CLUMPS (test code = See_Comment H [Au tomated message] 7108383219) The system [employer]atial generated this result transmitted ref erence range: <=1 HPF. The reference range was not used to int erpret this result as normal/abnormal . GARRET EPITH (test code = See_Comment H [Aut omated message] 8748571563) The system [employer] generated this result transmitted ref erence range: <=1 HPF. The reference range was not used to int erpret this result as normal/abnormal . Lab Interpretation (test Abnormal code = 85916-1) [facility]. METABOLIC PANEL ([id number])2021-02-07 16:33:45 Test Item Value Reference Range Interpretation Comments NA (test code = 138 mmol/L 135-145 8996485439) K (test code = 3.5 mmol/L 3.5-5.0 1631367271) CL (test code = 101 mmol/L 98-108 2660155683) CO2 TOTAL (test code = 25 mmol/L 23-31 6716862633) AGAP (test code = 2-16 4899665051) BUN (test code = 12 mg/dL 7-23 8405014409) GLUCOSE (test code = 141 mg/dL 70-110 H 1736680038) CREATININE (test code = 0.86 mg/dL 0.50-1.04 2751656088) TOTAL BILI (test code = 0.6 mg/dL 0.1-1.5 5011911683) CALCIUM (test code = 9.5 mg/dL 8.6-10.6 1544600447) T PROTEIN (test code = 8.1 g/dL 6.3-8.2 1744995946) ALBUMIN (test code = 4.7 g/dL 3.5-5.0 8485763244) ALK PHOS (test code = 101 U/L 34-122 7884715848) ALTv (test code = 17 U/L 5-35 1742-6) AST(SGOT) (test code = 28 U/L 13-40 1964196535) eGFR (test code = mL/min/1.73m2 3134313834) GI (test code = GI) Association of Glomerular Filtration Rate (GFR) and Staging of Kidney Disease* + --+ --+ ------+| GFR (mL/min/1.73 m2) ?| With Kidney Damage ?| ?Without Kidney Damage+ --------+ --------+ +| ?>90 ?| ?Stage one ?| ? Normal ?+ ---+ ---+ -------+| ?60-89 ?| ?Stage two ?| ? Decreased GFR ? + --+ --+ ------+| ?30-59 ?| ?Stage three ?| ? Stage three ? + --+ --+ ------+| ?15-29 ?| ?Stage four ? | ? Stage four ?+ ---+ ---+ -------+| ?<15 (or dialysis) ? ?| ?Stage five ? | ? Stage five ?+ ---+ ---+ -------+ *Each stage assumes the associated GFR level has been in effect for at least three months. ?Stages 1 to 5, with or without kidney disease, indicate chronic kidney disease. Notes: Determination of stages one and two (with eGFR >59mL/min/1.73 m2) requires estimation of kidney damage for at least three months as defined by structural or functional abnormalities of the kidney, manifested by either:Pathological abnormalities or Markers of kidney damage (including abnormalities in the composition of the blood or urine or abnormalities in imaging tests). Lab Interpretation Abnormal (test code = 21657-1) [facility] with [id number] 16:22:44 Test Item Value Reference Range Interpretation Comments WBC (test code = See_Comment [Automated 6690-2) message] The sy stem which generated this result transmitted reference range : 4.30 - 11.10 10*3/?L. The reference range was not used to interpret this result as normal/abnormal . RBC (test code = See_Comment [Automated 789-8) message] The sy stem which generated this result transmitted reference range : 3.93 - 5.25 10*6/?L. The reference range was not used to interpret this result as normal/abnormal . HGB (test code = 12.4 g/dL 11.6-15.0 718-7) HCT (test code = 37.0 % 35.7-45.2 4544-3) MCV (test code = 86.2 fL 80.6-95.5 787-2) MCH (test code = 28.9 pg 25.9-32.8 785-6) MCHC (test code = 33.5 g/dL 31.6-35.1 786-4) RDW-SD (test code = 42.2 fL 39.0-49.9 98889-1) RDW-CV (test code = 13.5 % 12.0-15.5 788-0) PLT (test code = See_Comment [Automated 777-3) message] The sy stem which generated this result transmitted reference range : 166 - 358 10*3/ ?L. The reference r jj was not used to interpret this result as normal/abnormal . MPV (test code = 9.0 fL 9.5-12.9 L 50911-5) NRBC/100 WBC (test See_Comment [Automat ed code = 8016609174) message] The system which generated this result transmitted reference range : 0.0 - 10.0 /100 WBCs. The refer ence range was not u sed to interpret th is result as normal/abnormal . NRBC x10^3 (test code <0.01 See_Comment [Auto mated = 5501126040) message] The s ystem which generated this result transmitted reference range : 10*3/?L. The reference range was not used to interpret this result as normal/abnormal . GRAN MAT (NEUT) % 68.1 % (test code = 770-8) IMM GRAN % (test code 0.40 % = 5458619143) LYMPH % (test code = 22.7 % 736-9) MONO % (test code = 7.2 % 5905-5) EOS % (test code = 1.3 % 713-8) BASO % (test code = 0.3 % 706-2) GRAN MAT x10^3(ANC) 6.43 10*3/uL 1.88-7.09 (test code = 4823411449) IMM GRAN x10^3 (test 0.04 10*3/uL 0.00-0.06 code = 2407141343) LYMPH x10^3 (test code 2.14 10*3/uL 1.32-3.29 = 731-0) MONO x10^3 (test code 0.68 10*3/uL 0.33-0.92 = 742-7) EOS x10^3 (test code = 0.12 10*3/uL 0.03-0.39 711-2) BASO x10^3 (test code 0.03 10*3/uL 0.01-0.07 = 704-7) Lab Interpretation Abnormal (test code = 09597-1) [facility] [id number] 19:30:55 Test Item Value Reference Range Interpretation Comments Fungus smear No fungi Specimen (test code = observed. InformationSpec imen Source: 1443) TissueSpecimen Site: Eye: Donor rim and [facility] Pre/Post [id number] 23:25:56 Test Item Value Reference Range Interpretation Comments Ventricular rate (test code = 253) Atrial rate (test code = 255) GA interval (test code = 266) QRSD interval [...] available-Electronica lly Signed By Heber Hernandez MD ([id number]) on 01/15/2021 6:25:56 PM [facility] [id number] 15:27:00 Test Item Value Reference Range Interpretation Comments FERRITIN (test code = 11.7 ng/mL 11-264 1003886364) GI (test code = GI) Biotin has been reported to cause a negative bias, interpret results relative to patient's use of biotin. Lab Interpretation (test Normal code = 77517-2) [facility] [id number] 10:01:00 Test Item Value Reference Range Interpretation Comments TROPONIN I (test <0.012 See_Comment [Automated code = 7713517058) message] The system which generated this result transmitted reference range : <=0.034 ng/mL. The reference range was not used to interpr et this result as normal/abnormal . GI (test code = Equal or Less than GI) 0.034 ng/ml---Normal ?Note: Cardiac troponin begins to rise 3-4 hours after the onset of ischemia. Repeat in 4-6 hours if the sample was drawn within 3-4 hours of the onset of the symptom and found normal. Between 0.035 and 0.120 ng/mL--- Borderline. Questionable myocardial injury or necrosis ? ?Note: Serial measurement may be necessary to confirm or exclude the diagnosis of myocardial injury or necrosis; Clinical correlation (symptoms, EKGs, imaging studies, and others) required; Repeat in 4-6 hours if clinically indicated. ? Equal or Higher than 0.121 ng/mL---Abnormal. Myocardial Injury or Necrosis Likely ? Biotin has been reported to cause a negative bias, interpret results relative to patient's use of biotin. ? Lab Interpretation Normal (test code = 47557-3) [facility] [id number] 06:25:00 Test Item Value Reference Range Interpretation Comments TROPONIN I (test <0.012 See_Comment [Automated code = 7544783603) message] The system which generated this result transmitted reference range : <=0.034 ng/mL. The reference range was not used to interpr et this result as normal/abnormal . GI (test code = Equal or Less than GI) 0.034 ng/ml---Normal ?Note: Cardiac troponin begins to rise 3-4 hours after the onset of ischemia. Repeat in 4-6 hours if the sample was drawn within 3-4 hours of the onset of the symptom and found normal. Between 0.035 and 0.120 ng/mL--- Borderline. Questionable myocardial injury or necrosis ? ?Note: Serial measurement may be necessary to confirm or exclude the diagnosis of myocardial injury or necrosis; Clinical correlation (symptoms, EKGs, imaging studies, and others) required; Repeat in 4-6 hours if clinically indicated. ? Equal or Higher than 0.121 ng/mL---Abnormal. Myocardial Injury or Necrosis Likely ? Biotin has been reported to cause a negative bias, interpret results relative to patient's use of biotin. ? Lab Interpretation Normal (test code = 76290-1) [facility] (NA, K, CL, CO2, GLUCOSE, BUN, CREATININE, CA)2020-05-27 06:14:00 Test Item Value Reference Range Interpretation Comments NA (test code = 137 mmol/L 135-145 6875473497) K (test code = 4.0 mmol/L 3.5-5 4317458160) CL (test code = 100 mmol/L 98-108 5617741828) CO2 TOTAL (test code = 30 mmol/L 23-31 5487386604) AGAP (test code = 2-16 6505874997) BUN (test code = 17 mg/dL 7-23 9125721642) GLUCOSE (test code = 113 mg/dL 70-110 H 0703644444) CREATININE (test code = 0.80 mg/dL 0.5-1.04 7693876787) CALCIUM (test code = 8.7 mg/dL 8.6-10.6 5876438132) eGFR Calculation mL/min/1.73m2 (Non-) (test code = 8755224642) eGFR Calculation mL/min/1.73m2 () (test code = 7591310841) GI (test code = GI) Association of Glomerular Filtration Rate (GFR) and Staging of Kidney Disease* + --+ --+ ------+| GFR (mL/min/1.73 m2) ?| With Kidney Damage ?| ?Without Kidney Damage+ --------+ --------+ +| ?>90 ?| ?Stage one ?| ? Normal ?+ ---+ ---+ -------+| ?60-89 ?| ?Stage two ?| ? Decreased GFR ? + --+ --+ ------+| ?30-59 ?| ?Stage three ?| ? Stage three ? + --+ --+ ------+| ?15-29 ?| ?Stage four ? | ? Stage four ?+ ---+ ---+ -------+| ?<15 (or dialysis) ? ?| ?Stage five ? | ? Stage five ?+ ---+ ---+ -------+ *Each stage assumes the associated GFR level has been in effect for at least three months. ?Stages 1 to 5, with or without kidney disease, indicate chronic kidney disease. Notes: Determination of stages one and two (with eGFR >59mL/min/1.73 m2) requires estimation of kidney damage for at least three months as defined by structural or functional abnormalities of the kidney, manifested by either:Pathological abnormalities or Markers of kidney damage (including abnormalities in the composition of the blood or urine or abnormalities in imaging tests). Lab Interpretation Abnormal (test code = 09325-8) [facility] with [id number] 05:46:00 Test Item Value Reference Range Interpretation Comments WBC (test code = See_Comment [Automated 3287-2) message] The sy stem which generated this result transmitted reference range : 4.30 - 11.10 10*3/?L. The reference range was not used to interpret this result as normal/abnormal . RBC (test code = See_Comment [Automated 787-1) message] The sy stem which generated this result transmitted reference range : 3.93 - 5.25 10*6/?L. The reference range was not used to interpret this result as normal/abnormal . HGB (test code = 10.1 g/dL 11.6-15 L 718-7) HCT (test code = 33.1 % 35.7-45.2 L 4544-3) MCV (test code = 79.0 fL 80.6-95.5 L 787-2) MCH (test code = 24.1 pg 25.9-32.8 L 785-6) MCHC (test code = 30.5 g/dL 31.6-35.1 L 786-4) RDW-SD (test code = 53.7 fL 39-49.9 H 34489-7) RDW-CV (test code = 18.9 % 12-15.5 H 788-0) PLT (test code = See_Comment [Automated 777-3) message] The sy stem which generated this result transmitted reference range : 166 - 358 10*3/ ?L. The reference r jj was not used to interpret this result as normal/abnormal . MPV (test code = 9.2 fL 9.5-12.9 L 28990-2) NRBC/100 WBC (test See_Comment [Automat ed code = 1249535901) message] The system which generated this result transmitted reference range : 0.0 - 10.0 /100 WBCs. The refer ence range was not u sed to interpret th is result as normal/abnormal . NRBC x10^3 (test code <0.01 See_Comment [Auto mated = 6823967826) message] The s ystem which generated this result transmitted reference range : 10*3/?L. The reference range was not used to interpret this result as normal/abnormal . GRAN MAT (NEUT) % 55.6 % (test code = 770-8) IMM GRAN % (test code 0.70 % = 0398056605) LYMPH % (test code = 32.3 % 736-9) MONO % (test code = 7.8 % 5905-5) EOS % (test code = 3.3 % 713-8) BASO % (test code = 0.3 % 706-2) GRAN MAT x10^3(ANC) 5.48 10*3/uL 1.88-7.09 (test code = 0037574262) IMM GRAN x10^3 (test 0.07 10*3/uL 0-0.06 H code = 3588810722) LYMPH x10^3 (test code 3.18 10*3/uL 1.32-3.29 = 731-0) MONO x10^3 (test code 0.77 10*3/uL 0.33-0.92 = 742-7) EOS x10^3 (test code = 0.33 10*3/uL 0.03-0.39 711-2) BASO x10^3 (test code 0.03 10*3/uL 0.01-0.07 = 704-7) Lab Interpretation Abnormal (test code = 98579-0) [facility] 03:28:00 Test Item Value Reference Range Interpretation Comments APPEARANCE (test code = Hazy Clear A 0944596774) COLOR (test code = Yellow Yellow 9014932109) PH (test code = 4.8-8.0 0978107702) SP GRAVITY (test code = 1.003-1.030 0348138792) GLU U QUAL (test code = Normal Normal 6020703228) BLOOD (test code = Negative Negative 7988635640) KETONES (test code = Negative Negative 7590364380) PROTEIN (test code = Negative Negative 2887-8) UROBILIN (test code = Normal Normal 5775695312) BILIRUBIN (test code = Negative Negative 4014410252) NITRITE (test code = Positive Negative A 3896197512) LEUK LISA (test code = 250/uL Negative A 3334237517) RBC/HPF (test code = See_Comment [Autom ated message] 7541900442) The system [employer] generated this result transmitted ref erence range: 0 - 3 HP F. The reference range was not used to int erpret this result as normal/abnormal . WBC/HPF (test code = See_Comment H [Autom ated message] 7696852210) The system [employer] generated this result transmitted ref erence range: 0 - 5 HP F. The reference range was not used to int erpret this result as normal/abnormal . BACTERIA (test code = Moderate Negative A 0303218645) SQ EPITH (test code = <1 HPF 1763721261) WBC CLUMPS (test code = <1 See_Comment [Au tomated message] 2892768833) The system [employer] generated this result transmitted ref erence range: <=1 HPF. The reference range was not used to int erpret this result as normal/abnormal . TRANS EPI (test code = <1 See_Comment [Aut omated message] 6329643792) The system [employer] generated this result transmitted ref erence range: <=1 HPF. The reference range was not used to int erpret this result as normal/abnormal . Lab Interpretation (test Abnormal code = 17558-2) [facility] [id number] 00:38:00 Test Item Value Reference Range Interpretation Comments TROPONIN I (test <0.012 See_Comment [Automated code = 3826980418) message] The system which generated this result transmitted reference range : <=0.034 ng/mL. The reference range was not used to interpr et this result as normal/abnormal . GI (test code = Equal or Less than GI) 0.034 ng/ml---Normal ?Note: Cardiac troponin begins to rise 3-4 hours after the onset of ischemia. Repeat in 4-6 hours if the sample was drawn within 3-4 hours of the onset of the symptom and found normal. Between 0.035 and 0.120 ng/mL--- Borderline. Questionable myocardial injury or necrosis ? ?Note: Serial measurement may be necessary to confirm or exclude the diagnosis of myocardial injury or necrosis; Clinical correlation (symptoms, EKGs, imaging studies, and others) required; Repeat in 4-6 hours if clinically indicated. ? Equal or Higher than 0.121 ng/mL---Abnormal. Myocardial Injury or Necrosis Likely ? Biotin has been reported to cause a negative bias, interpret results relative to patient's use of biotin. ? Lab Interpretation Normal (test code = 96733-1) [facility]Magnesium [id number] 23:17:00 Test Item Value Reference Range Interpretation Comments MAGNESIUM (test code = 2029288931) 1.6 mg/dL 1.7-2.4 L Lab Interpretation (test code = Abnormal 11564-1) [facility]Phosphorus [id number] 23:17:00 Test Item Value Reference Range Interpretation Comments PHOSPHORUS (test code = 6389919510) 3.2 mg/dL 2.5-5 Lab Interpretation (test code = Normal 17306-8) [facility] HospitalThyroid Stimulating Hormone (TSH)2020-05-26 23:17:00 Test Item Value Reference Range Interpretation Comments TSH (test code = See_Comment Biotin has been 8186593402) reported to cau se a negative bias, interpret resul ts relative to pat lopez's use of biotin. [Automated mess age] The system [employer] generated this result transmitted ref erence range: 0.45 - 4 .70 mIU/L. The refe rence range was not u sed to interpret this result as normal/abnor mal. Lab Interpretation (test Normal code = 49159-8) [facility] HospitalGlycosylated Hemoglobin (A1C)2020-05-26 22:08:00 Test Item Value Reference Range Interpretation Comments HGB A1C (test code = 6.2 % 4-6 H 4548-4) GI (test code = GI) %A1C (NGSP) Interpretation (ADA)4.8-5.6 ? ? Normal or (Non-Diabetic Range)5.7-6.4 ? ? Increased Risk (Pre-Diabetic)>6.5 ?Diabetes Indicated Lab Interpretation Abnormal (test code = 30726-0) [facility] (Total Cholesterol, Triglycerides, HDL)2020-05-26 22:03:00 Test Item Value Reference Range Interpretation Comments CHOL (test code = 166 mg/dL 120-200 4992054644) HDL (test code = 41 mg/dL >50 L 6299054870) HDLC RATIO (test code = See_Comment [Au tomated message] 7827864790) The system [employer] generated this result transmit elton reference range : <=4.5. The refe rence range was not u sed to interpret th is result as normal/abnormal . TRIG (test code = 195 mg/dL 30-170 H 5121690381) LDL CHOL (test code = 86 mg/dL See_Comment [Auto mated message] 01742-9) The system [employer] generated this result transmit elton reference range : <=160. The refe rence range was not u sed to interpret th is result as normal/abnormal . VLDL (test code = 39 mg/dL 5-60 6785396128) Lab Interpretation (test Abnormal code = 67570-4) [facility]-[id number] 20:36:00 Test Item Value Reference Interpretation Comments Range D-DIMER (test code = See_Comment H [Autom ated 9978057617) message] The system which generated this result transmitted reference range : <0.41 ?g/mL (FEU). The reference range was not used to interpret this result as normal/abnormal . GI (test code = This test may be GI) used in conjunction with a clinical pretest probability (PTP) assessment model to exclude venous thromboembolism (VTE) in patients suspected of deep venous thrombosis (DVT) and pulmonary embolism (PE) A D-Dimer value less than 0.50 ?g/ml (FEU) has a negative predicative value of 96 to 100% (95% CI)and 97 to 100% (95% CI) as an aid in the diagnosis of deep vein thrombosis (DVT) and pulmonary embolism when there is low or moderate pretest probability of PE or DVT. D-Dimer values are expressed in initial fibrinogen equivalent units (FEU)" The assay results should be used with other information, including the clinical context, in forming a diagnosis. Lab Interpretation Abnormal (test code = 28491-7) [facility] 1 [id number] 18:43:02HISTORY: Chest pain. TECHNIQUE: Portable AP erect view of the chest is obtained. No prior studyavailable for comparison. FINDINGS: No acute pneumonia. No pneumothorax or pleural effusion orpulmonary congestion detected. Mild cardiomegaly with left ventricularpreponderance noted. Tortuous brachiocephalic vessels suspected. CONCLUSIONS: No signs of acute cardiopulmonary disease.[facility], Radiant Results Inf t User - 05/26/2020 1:44 PM CDTHISTORY: Chest pain.TECHNIQUE: Portable AP erect view of the chest is obtained. No prior studyavailable for comparison.FINDINGS: No acute pneumonia. No pneumothorax or pleural effusion orpulmonary congestion detected. Mild cardiomegaly with left ventricularpreponderancenoted. Tortuous brachiocephalic vessels suspected.CONCLUSIONS: No signs of acute cardiopulmonary disease.[facility] HospitalTrjeronimonin [id number] 18:42:00 Test Item Value Reference Range Interpretation Comments TROPONIN I (test <0.012 See_Comment [Automated code = 0897541353) message] The system which generated this result transmitted reference range : <=0.034 ng/mL. The reference range was not used to interpr et this result as normal/abnormal . GI (test code = Equal or Less than GI) 0.034 ng/ml---Normal ?Note: Cardiac troponin begins to rise 3-4 hours after the onset of ischemia. Repeat in 4-6 hours if the sample was drawn within 3-4 hours of the onset of the symptom and found normal. Between 0.035 and 0.120 ng/mL--- Borderline. Questionable myocardial injury or necrosis ? ?Note: Serial measurement may be necessary to confirm or exclude the diagnosis of myocardial injury or necrosis; Clinical correlation (symptoms, EKGs, imaging studies, and others) required; Repeat in 4-6 hours if clinically indicated. ? Equal or Higher than 0.121 ng/mL---Abnormal. Myocardial Injury or Necrosis Likely ? Biotin has been reported to cause a negative bias, interpret results relative to patient's use of biotin. ? Lab Interpretation Normal (test code = 63233-7) [facility] HospitalCOVID[facility] (ID NOW RAPID TESTING)2020-05-26 18:39:00 Test Item Value Reference Range Interpretation Comments SARS-CoV-2 Rapid ID NOW Not Detected Not Detected (test code = 11684-5) GI (test code = GI) ID NOW COVID-19 Assay is an isothermal nucleic acid amplification test intended for the qualitative detection of nucleic acid from SARS-CoV-2 viral RNA in nasopharyngeal (WIRE LATHER) specimens. It is used under Emergency Use Authorization (EUA) by FDA. The limit of detection (LOD) of the assay is 125 Genome Equivalents/mL. A positive result is indicative of the presence of SARS-CoV-2 RNA. ?Clinical correlation with patient history and other diagnostic information is necessary to determine patient infection status. A negative (Not Detected) result does not preclude SARS-CoV-2 infection. In patients with clinical symptoms and other tests that are consistent with SARS-CoV-2 infection, negative results should be treated as presumptive negative and a new specimen should be tested with alternative PCR molecular test. Invalid: Please collect a new specimen for repeat patient testing if clinically indicated. Lab Interpretation Normal (test code = 82092-8) [facility] Metabolic Panel (NA, K, CL, CO2, GLUCOSE, BUN, CREATININE, CA)2020-05-26 18:31:00 Test Item Value Reference Range Interpretation Comments NA (test code = 138 mmol/L 135-145 3371885280) K (test code = 4.0 mmol/L 3.5-5 4337154355) CL (test code = 103 mmol/L 98-108 1945554988) CO2 TOTAL (test code = 29 mmol/L 23-31 5387878391) AGAP (test code = 2-16 8803327529) BUN (test code = 18 mg/dL 7-23 1077826898) GLUCOSE (test code = 112 mg/dL 70-110 H 2773106776) CREATININE (test code = 0.67 mg/dL 0.5-1.04 7641691216) CALCIUM (test code = 8.2 mg/dL 8.6-10.6 L 7093620763) eGFR Calculation mL/min/1.73m2 (Non-) (test code = 7802551397) eGFR Calculation mL/min/1.73m2 () (test code = 4505851110) GI (test code = GI) Association of Glomerular Filtration Rate (GFR) and Staging of Kidney Disease* + --+ --+ ------+| GFR (mL/min/1.73 m2) ?| With Kidney Damage ?| ?Without Kidney Damage+ --------+ --------+ +| ?>90 ?| ?Stage one ?| ? Normal ?+ ---+ ---+ -------+| ?60-89 ?| ?Stage two ?| ? Decreased GFR ? + --+ --+ ------+| ?30-59 ?| ?Stage three ?| ? Stage three ? + --+ --+ ------+| ?15-29 ?| ?Stage four ? | ? Stage four ?+ ---+ ---+ -------+| ?<15 (or dialysis) ? ?| ?Stage five ? | ? Stage five ?+ ---+ ---+ -------+ *Each stage assumes the associated GFR level has been in effect for at least three months. ?Stages 1 to 5, with or without kidney disease, indicate chronic kidney disease. Notes: Determination of stages one and two (with eGFR >59mL/min/1.73 m2) requires estimation of kidney damage for at least three months as defined by structural or functional abnormalities of the kidney, manifested by either:Pathological abnormalities or Markers of kidney damage (including abnormalities in the composition of the blood or urine or abnormalities in imaging tests). Lab Interpretation Abnormal (test code = 38771-0) [facility] Function [facility] (ALB, T.PRO, BILI T, BU/BC, ALT, AST, ALK PHOS)2020-05-26 18:31:00 Test Item Value Reference Range Interpretation Comments TOTAL BILI (test code = 4581173995) 0.5 mg/dL 0.1-1.1 BILI UNCON (test code = 9108477732) 0.4 mg/dL 0.1-1.1 BILI CONJ (test code = 5363291398) 0.0 mg/dL 0-0.3 T PROTEIN (test code = 6809726786) 6.5 g/dL 6.3-8.2 ALBUMIN (test code = 1270146048) 3.4 g/dL 3.5-5 L ALK PHOS (test code = 2242190240) 91 U/L 34-122 ALTv (test code = 1742-6) 12 U/L 5-35 AST(SGOT) (test code = 0717502178) 21 U/L 13-40 Lab Interpretation (test code = Abnormal 59440-9) [facility] HospitalLipase [id number] 18:31:00 Test Item Value Reference Range Interpretation Comments LIPASE (test code = 9698002282) 108 U/L 0-220 Lab Interpretation (test code = Normal 37247-4) [facility] HospitalaPTT2020-10-27 18:29:00 Test Item Value Reference Range Interpretation Comments APTT Patient (test See_Comment [Automat ed code = 3173-2) message] The system which generated this result transmitted reference range : 23 - 38 Seconds . The reference range was not used to interpr et this result as normal/abnormal . GI (test code = GI) The [facility] patient population mean normal value for aPTT is 30 seconds. Lab Interpretation Normal (test code = 94997-4) [facility] HospitalProthrombin Time (PT) / [id number] 18:27:00 Test Item Value Reference Range Interpretation Comments PROTIME PATIENT (test See_Comment [Auto mated message] code = 5964-2) The system wh ich generated this result transmitted ref erence range: 12.0 - 1 4.7 Seconds. The re ference range was not u sed to interpret this result as normal/abnor mal. INR (test code = 6301-6) Nor mal INR <1.1; Warfarin Therap eutic range 2.0 to 3. 0 or 2.5 to 3.5, dep ending upon the indica tions. Lab Interpretation (test Normal code = 10993-2) [facility] HospitalCBC with [id number] 18:16:00 Test Item Value Reference Range Interpretation Comments WBC (test code = See_Comment [Automated 6690-2) message] The sy stem which generated this result transmitted reference range : 4.30 - 11.10 10*3/?L. The reference range was not used to interpret this result as normal/abnormal . RBC (test code = See_Comment [Automated 789-8) message] The sy stem which generated this result transmitted reference range : 3.93 - 5.25 10*6/?L. The reference range was not used to interpret this result as normal/abnormal . HGB (test code = 10.1 g/dL 11.6-15 L 718-7) HCT (test code = 32.5 % 35.7-45.2 L 4544-3) MCV (test code = 78.9 fL 80.6-95.5 L 787-2) MCH (test code = 24.5 pg 25.9-32.8 L 785-6) MCHC (test code = 31.1 g/dL 31.6-35.1 L 786-4) RDW-SD (test code = 53.8 fL 39-49.9 H 60967-3) RDW-CV (test code = 18.7 % 12-15.5 H 788-0) PLT (test code = See_Comment [Automated 777-3) message] The sy stem which generated this result transmitted reference range : 166 - 358 10*3/ ?L. The reference r jj was not used to interpret this result as normal/abnormal . MPV (test code = 9.4 fL 9.5-12.9 L 42677-6) NRBC/100 WBC (test See_Comment [Automat ed code = 3483252005) message] The system which generated this result transmitted reference range : 0.0 - 10.0 /100 WBCs. The refer ence range was not u sed to interpret th is result as normal/abnormal . NRBC x10^3 (test code <0.01 See_Comment [Auto mated = 2958080225) message] The s ystem which generated this result transmitted reference range : 10*3/?L. The reference range was not used to interpret this result as normal/abnormal . GRAN MAT (NEUT) % 56.4 % (test code = 770-8) IMM GRAN % (test code 0.90 % = 0316064401) LYMPH % (test code = 31.2 % 736-9) MONO % (test code = 7.6 % 5905-5) EOS % (test code = 3.5 % 713-8) BASO % (test code = 0.4 % 706-2) GRAN MAT x10^3(ANC) 5.24 10*3/uL 1.88-7.09 (test code = 6060844530) IMM GRAN x10^3 (test 0.08 10*3/uL 0-0.06 H code = 9819926252) LYMPH x10^3 (test code 2.90 10*3/uL 1.32-3.29 = 731-0) MONO x10^3 (test code 0.71 10*3/uL 0.33-0.92 = 742-7) EOS x10^3 (test code = 0.33 10*3/uL 0.03-0.39 711-2) BASO x10^3 (test code 0.04 10*3/uL 0.01-0.07 = 704-7) Lab Interpretation Abnormal (test code = 60935-9) [facility]
--- NOTE | 2021-06-28 13:23 | RAD REPORT ---
EXAM DESCRIPTION: CT - Head Brain Wo Cont - 06/28/2021 1:18 pm CLINICAL HISTORY: NUMBNESS Headache, drowsiness, numbness COMPARISON: Head angio dated 08/15/2020; Head Brain Wo Cont dated 08/15/2020 TECHNIQUE: All CT scans are performed using dose optimization technique as appropriate and may inclu de automated exposure control or mA/KV adjustment according to patient size. FINDINGS: No intracranial hemorrhage, hydrocephalus or extra-axial fluid collection.Moderate periven tricular and deep white matter chronic microvascular ischemic changes.No areas of brain edema or evid ence of midline shift. Mild vertebral atherosclerosis on the right. The paranasal sinuses and mastoids are clear. The calvarium is intact. IMPRESSION: No acute intracranial abnormality.
[2021-06-28] MEDS ORDERED: HYDROCODONE/APAP 7.5/325 MG TAB ONE (13:50)
[2021-06-28 13:59] LABS: Absolute Lymphocytes (CBC) 2.8 K/uL (0.7-4.9); Basophils % 0.5 % (0-1.3); Hematocrit 38.9 % (36.0-45.0); Lymphocytes % 26.3 % (15.3-44.8); RBC Red Blood Cell Count 4.56 M/uL (3.86-4.86)
--- NOTE | 2021-06-28 15:21 | ER ---
Nurse's Notes [facility] Name: Lilian Garland Age: 71 yrs Sex: Female : 1950 Arrival Date: 06/28/2021 Time: 10:02 Bed 12 Private MD: Bo Hernandez Diagnosis: Polyneuropathy, unspecified Presentation: 06/28 10:30 Chief complaint: Patient states: "I've got neuropathy in my hands and feet. I can't ss even feel my toes when I walk or try to walk." Pt reports that she takes Gabapentin for this, but it isn't working, Pt reports it got really bad at midnight last night. Coronavirus screen: Client denies travel out of the [place] in the last 14 days. Ebola Screen: Patient denies exposure to infectious person. Patient denies travel to an Ebola-affected area in the 21 days before illness onset. Initial Sepsis Screen: Does the patient meet any 2 criteria? No. Patient's initial sepsis screen is negative. Does the patient have a suspected source of infection? No. Patient's initial sepsis screen is negative. Risk Assessment: Do you want to hurt yourself or someone else? Patient reports no desire to harm self or others. Onset of symptoms was June 28, 2021. 10:30 Method Of Arrival: Wheelchair ss 10:30 Acuity: JI 4 ss Historical: - Allergies: 10:32 No Known Allergies; ss - Home Meds: 10:32 amlodipine 5 mg tab 1 tab once daily [Active]; carvedilol 6.25 mg Oral tab 1 tab every ss 12 hours [Active]; donepezil 5 mg Oral TbDL 1 tab once daily [Active]; duloxetine 20 mg Oral cpDR 1 cap 2 times per day [Active]; furosemide 20 mg Oral tab 1 tab once daily [Active]; gabapentin 600 mg Oral tab 2 tab twice a day [Active]; omeprazole 40 mg Oral cpDR 1 cap once daily [Active]; pravastatin 20 mg Oral tab 1 tab once daily [Active]; zolpidem 5 mg Oral tab nightly [Active]; - PMHx: 10:32 Anxiety; Chronic pain; Dementia; Depression; GERD; Gout; Hypertension; Kidney stones; ss neuropathy; - PSHx: 10:32 Cornea transplant L eye; ss - Immunization history:: Client reports receiving the 2nd dose of the Covid vaccine. - Social history:: Smoking status: Patient denies any tobacco usage or history of. Screenin:21 Abuse screen: Denies threats or abuse. Denies injuries from another. Nutritional ld1 screening: No deficits noted. Tuberculosis screening: No symptoms or risk factors identified. Fall Risk None identified. Assessment: 12:21 General: Appears in no apparent distress. comfortable, Behavior is calm, cooperative, ld1 appropriate for age. Pain: Complains of pain in right foot and left foot Pain does not radiate. Pain currently is 7 out of 10 on a pain scale. Quality of pain is described as tingling, Pain began suddenly, Is continuous. Neuro: Level of Consciousness is awake, alert, obeys commands, Oriented to person, place, time, situation, Appropriate for age. Cardiovascular: Capillary refill < 3 seconds Patient's skin is warm and dry. Respiratory: Airway is patent Respiratory effort is even, unlabored, Respiratory pattern is regular, symmetrical. GI: Abdomen is round non-distended. : No signs and/or symptoms were reported regarding the genitourinary system. EENT: No signs and/or symptoms were reported regarding the EENT system. Derm: No signs and/or symptoms reported regarding the dermatologic system. Musculoskeletal: No signs and/or symptoms reported regarding the musculoskeletal system. 13:30 Reassessment: Patient appears in no apparent distress at this time. No changes from ld1 previously documented assessment. Patient and/or family updated on plan of care and expected duration. Pain level reassessed. Patient is alert/active/playful, equal unlabored respirations, skin warm/dry/pink. 14:30 Reassessment: Patient appears in no apparent distress at this time. Patient and/or ld1 family updated on plan of care and expected duration. Pain level reassessed. Patient is alert/active/playful, equal unlabored respirations, skin warm/dry/pink. Vital Signs: 10:30 Pulse 94; Resp 15; Temp 98.0(TE); Pulse Ox 99% on R/A; Weight 95.25 kg; Height 5 ft. 3 ss in. (160.02 cm); Pain 10/10; 10:30 BP 126 / 84; ss 12:21 BP 132 / 80; Pulse 91; Resp 18; Pulse Ox 99% on R/A; ld1 14:00 BP 129 / 82; Pulse 96; Resp 18; Pulse Ox 100% ; ld1 15:38 BP 136 / 88; Pulse 96; Resp 92; Pulse Ox 100% ; ld1 10:30 Body Mass Index 37.20 (95.25 kg, 160.02 cm) ED Course: 10:02 Patient arrived in ED. mr 10:05 Bo Hernandez DO is Private Physician. kc5 10:32 Triage completed. ss 10:32 Arm band placed on left wrist. ss 12:17 Reji Verde PA is PHCP. jr8 12:17 Siddhartha Barajas MD is Attending Physician. jr8 12:21 Brandie Appiah, YENY is Primary Nurse. ld1 12:22 Patient has correct armband on for positive identification. Placed in gown. Bed in low ld1 position. Call light in reach. Side rails up X2. Pulse ox on. NIBP on. Door closed. Noise minimized. Warm blanket given. 12:22 No provider procedures requiring assistance completed. ld1 13:18 CT Head Brain wo Cont In Process Unspecified. EDMS 13:47 Initial lab(s) drawn, by nj, sent to lab. Inserted saline lock: 22 gauge in left iw antecubital area, using aseptic technique. 15:20 Bo Hernandez DO is Referral Physician. jr8 15:38 IV discontinued, intact, bleeding controlled, No redness/swelling at site. ld1 Administered Medications: 13:52 Drug: Holland (HYDROcodone-acetaminophen) (7.5 mg-325 mg) 1 tabs Route: PO; ld1 13:52 Follow up: Response: No adverse reaction ld1 Outcome: 15:20 Discharge ordered by . jr8 15:38 Discharged to home ambulatory. ld1 15:38 Condition: stable 15:38 Discharge instructions given to patient, Instructed on discharge instructions, follow up and referral plans. Demonstrated understanding of instructions, follow-up care. 15:38 Patient left the ED. ld1 Signatures: Dispatcher [employer] EDSC [place] Yamini Melendez RN RN Gabriela Lopez RN RN Reji Verde PA PA jr8 Brandie Appiah RN RN ld1 Jordyn Martin kc5 Corrections: (The following items were deleted from the chart) 15:37 15:00 Reassessment: ERP at bedside providing care. Pt c/o pain in left arm. anne marie1 ld1
--- NOTE | 2021-06-28 15:21 | EDPHYS ---
Physician Documentation [facility] Name: Lilian Garland Age: 71 yrs Sex: Female : 1950 Arrival Date: 06/28/2021 Time: 10:02 Bed 12 Private MD: David [facility], [facility]–1983 ED Physician Siddhartha Barajas HPI: 06/28 13:42 This 71 yrs old Female presents to ER via Wheelchair with complaints of Hand Pain, Foot jr8 Pain. 13:42 This is a 71-year-old female with a history of neuropathy that presented to the [facility] emergency room with new onset paresthesias in her feet. Patient stated that she has had paresthesias in her hands from some time and was thought to be secondary to her rheumatoid arthritis. Around midnight she started to feel the paresthesias in her lower feet. Denies recent trauma or change in medications.. Historical: - Allergies: 10:32 No Known Allergies; ss - Home Meds: 10:32 amlodipine 5 mg tab 1 tab once daily [Active]; carvedilol 6.25 mg Oral tab 1 tab every ss 12 hours [Active]; donepezil 5 mg Oral TbDL 1 tab once daily [Active]; duloxetine 20 mg Oral cpDR 1 cap 2 times per day [Active]; furosemide 20 mg Oral tab 1 tab once daily [Active]; gabapentin 600 mg Oral tab 2 tab twice a day [Active]; omeprazole 40 mg Oral cpDR 1 cap once daily [Active]; pravastatin 20 mg Oral tab 1 tab once daily [Active]; zolpidem 5 mg Oral tab nightly [Active]; - PMHx: 10:32 Anxiety; Chronic pain; Dementia; Depression; GERD; Gout; Hypertension; Kidney stones; ss neuropathy; - PSHx: 10:32 Cornea transplant L eye; ss - Immunization history:: Client reports receiving the 2nd dose of the Covid vaccine. - Social history:: Smoking status: Patient denies any tobacco usage or history of. ROS: 13:42 Eyes: Negative for injury, pain, redness, and discharge, ENT: Negative for injury, jr8 pain, and discharge, Neck: Negative for injury, pain, and swelling, Cardiovascular: Negative for chest pain, palpitations, and edema, Respiratory: Negative for shortness of breath, cough, wheezing, and pleuritic chest pain, Abdomen/GI: Negative for abdominal pain, nausea, vomiting, diarrhea, and constipation, Back: Negative for injury and pain, MS/Extremity: Negative for injury and deformity, Skin: Negative for injury, rash, and discoloration. 13:42 Neuro: Positive for tingling. Exam: 13:42 Constitutional: This is a well developed, well nourished patient who is awake, alert, jr8 and in no acute distress. Cardiovascular: Regular rate and rhythm with a normal S1 and S2. No gallops, murmurs, or rubs. Normal PMI, no JVD. No pulse deficits. Respiratory: Lungs have equal breath sounds bilaterally, clear to auscultation and percussion. No rales, rhonchi or wheezes noted. No increased work of breathing, no retractions or nasal flaring. Abdomen/GI: Soft, non-tender, with normal bowel sounds. No distension or tympany. No guarding or rebound. No evidence of tenderness throughout. Skin: Warm, dry with normal turgor. Normal color with no rashes, no lesions, and no evidence of cellulitis. MS/ Extremity: Pulses equal, no cyanosis. Neurovascular intact. Full, normal range of motion. Neuro: Awake and alert, GCS 15, oriented to person, place, time, and situation. Cranial nerves II-XII grossly intact. Motor strength 5/5 in all extremities. Sensory grossly intact. Cerebellar exam normal. Normal gait. Vital Signs: 10:30 Pulse 94; Resp 15; Temp 98.0(TE); Pulse Ox 99% on R/A; Weight 95.25 kg; Height 5 ft. 3 ss in. (160.02 cm); Pain 10/10; 10:30 BP 126 / 84; ss 12:21 BP 132 / 80; Pulse 91; Resp 18; Pulse Ox 99% on R/A; ld1 14:00 BP 129 / 82; Pulse 96; Resp 18; Pulse Ox 100% ; ld1 15:38 BP 136 / 88; Pulse 96; Resp 92; Pulse Ox 100% ; ld1 10:30 Body Mass Index 37.20 (95.25 kg, 160.02 cm) MDM: 12:21 Patient medically screened. [facility] 15:09 Data reviewed: vital signs, nurses notes, lab test result(s), and as a result, I will jr8 discharge patient. Data interpreted: Pulse oximetry: on room air is 99 %. Interpretation: normal. Counseling: I had a detailed discussion with the patient and/or guardian regarding: the historical points, exam findings, and any diagnostic results supporting the discharge/admit diagnosis, lab results, the need for outpatient follow up, a family practitioner, to return to the emergency department if symptoms worsen or persist or if there are any questions or concerns that arise at home. ED course: Blood work for BMP, B12, folate still in process as instrumentation is down. Patient wanting to go home at this time. I will call patient if there is any gross abnormality but explained to her that what she is experiencing seems to be consistent with her neuropathy. Needs to follow-up with her primary care as there is nothing emergently that we can do about this and she is already on gabapentin and duloxetine.. 06/28 13:04 Order name: CBC with Diff; Complete Time: 14:22 [facility] 06/28 13:04 Order name: Basic Metabolic Panel; Complete Time: 20:57 8 06/28 13:04 Order name: Magnesium; Complete Time: 20:57 8 06/28 13:04 Order name: B12; Complete Time: 20:57 8 06/28 13:04 Order name: Folic Acid,Serum (folate); Complete Time: 20:57 8 06/28 13:04 Order name: CT Head Brain wo Cont; Complete Time: 13:31 8 06/28 13:04 Order name: IV; Complete Time: 13:46 jr8 Administered Medications: 13:52 Drug: Dixon (HYDROcodone-acetaminophen) (7.5 mg-325 mg) 1 tabs Route: PO; ld1 13:52 Follow up: Response: No adverse reaction ld1 Disposition: 06/29 08:54 Co-signature as Attending Physician, Siddhartha Barajas MD I agree with the assessment and sushant plan of care. Disposition Summary: 06/28/21 15:20 Discharge Ordered Location: Home jr Problem: new jr8 Symptoms: have improved jr8 Condition: Stable jr8 Diagnosis - Polyneuropathy, unspecified jr8 Followup: jr8 - With: Bo Hernandez, DO - When: 1 - 2 days - Reason: Recheck today's complaints, Continuance of care, Re-evaluation by your physician Discharge Instructions: - Discharge Summary Sheet jr8 - Peripheral Neuropathy jr8 Forms: - Medication Reconciliation Form jr8 - Thank You Letter jr8 - Antibiotic Education jr8 - Prescription Opioid Use jr8 Signatures: Dispatcher [employer] Siddhartha Patrick MD MD cha Smirch, Shelby, RN RN Reji Verde PA PA jr8 Brandie Appiah RN RN ld1
[2021-06-28 15:45] VITALS: TEMP 98
[2021-06-28 15:48] VITALS: O2SAT 100
[2021-06-28 15:50] VITALS: BP 136/88
[2021-06-28 16:24] LABS: Folic Acid, (Folate) 9.2 ng/mL (3.1-17.5); Magnesium 2.4 mg/dL (1.8-2.4); Potassium 4.1 mmol/L (3.5-5.1)
== END 2021-06-28 15:38 | disposition home or self-care (01) ==
LOC: ER 09:58
DX: G62.9 Polyneuropathy, unspecified (principal); F41.9 Anxiety disorder, unspecified; F03.90 Unspecified dementia, unspecified severity, without behavioral disturbance, psychotic disturbance, mood disturbance, and anxiety; I10 Essential (primary) hypertension; K21.9 Gastro-esophageal reflux disease without esophagitis
CPT/HCPCS: 36415; 70450; 80048; 82607; 82746; 83735; 85025; 99284

== ENCOUNTER 2022-12-25 09:49 | Emergency (ER) | payer OTHER ==
--- OUTSIDE RECORDS SUMMARY | 2022-12-25 10:07 | XMS REPORT | Continuity of Care Document ---
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 13:30: mouth 2 [place] [address] (two) Medical times Branch daily. omeprazole 2022-0 Yes 20mg Take 20 mg U [facility] 20 mg 4-22 by mouth ity of capsule 13:30: daily. [place] [address] Medical Branch pravastatin 2022-0 Yes 20mg Take 20 mg [facility] 20 mg 4-22 by mouth ity of tablet 13:30: at [place] [address] bedtime. Medical Branch carvediloL 2021-0 Yes 6.25mg Take 6.25 [facility] 6.25 mg 4-22 mg by ity of tablet 13:30: mouth 2 [place] [address] (two) Medical times Branch daily with meals. donepeziL 5 2021-0 Yes 5mg Take 5 mg [facility] mg tablet 4-22 by mouth ity of 13:30: at [place] [address] bedtime. Medical Branch zolpidem 5 2021-0 Yes 5mg Take 5 mg [facility] mg tablet 4-22 by mouth ity of 13:30: at bedtime [place] [address] as needed Medical for Branch Insomnia. ALLOPURINOL 2021-0 Yes Take by Uni vers ORAL 4-22 mouth ity of 13:30: daily. [place] [address] Medical Branch gabapentin 2021-0 Yes 600mg Take 600 [facility] 600 mg 4-22 mg by ity of tablet 13:30: mouth 2 [place] [address] (two) Medical times Branch daily. omeprazole 2021-0 Yes 20mg Take 20 mg U [facility] 20 mg 4-22 by mouth ity of capsule 13:30: daily. [place] [address] Medical Branch pravastatin 2021-0 Yes 20mg Take 20 mg [facility] 20 mg 4-22 by mouth ity of tablet 13:30: at [place] [address] bedtime. Medical Branch carvediloL 2021-0 Yes 6.25mg Take 6.25 Univers 6.25 mg 4-22 mg by ity of tablet 13:30: mouth 2 [place] [address] (two) Medical times Branch daily with meals. donepeziL 5 2021-0 Yes 5mg Take 5 mg [facility] mg tablet 4-22 by mouth ity of 13:30: at [place] [address] bedtime. Medical Branch zolpidem 5 2021-0 Yes 5mg Take 5 mg [facility] mg tablet 4-22 by mouth ity of 13:30: at bedtime [place] [address] as needed Medical for Branch Insomnia. ALLOPURINOL 2022-0 Yes Take by Uni vers ORAL 4-22 mouth ity of 13:30: daily. [place] 56 Medical Branch amLODIPine 2021-0 2021- No 5mg Take 5 mg U nivers 5 mg tablet 11-19 by mouth ity of 12:21: 00:00 daily. [place] 17 :00 Medical Branch zolpidem 2021-0 Yes 5mg 5 mg, Univers (AMBIEN) 11-19 Oral, ity of tablet 5 mg 06:35: QHSPRN, Victor Manuel as 52 Starting Medical on Fri Branch 11/19/21 at 0135, Until Discontinu ed, Routine, Insomnia ondansetron 2021-0 Yes [id number] 4mg Take 1 [facility] 4 mg tablet 4-22 tablet by ity of 00:00: mouth [place] 00 every 6 Medical (six) Branch hours as needed for Nausea and Vomiting (N/V). ondansetron 2021-0 Yes [id number] 4mg Take 1 [facility] 4 mg tablet 4-22 tablet by ity of 00:00: mouth [place] 00 every 6 Medical (six) Branch hours as needed for Nausea and Vomiting (N/V). ondansetron 2021-0 Yes [id number] 4mg Take 1 [facility] 4 mg tablet 4-22 tablet by ity of 00:00: mouth [place] 00 every 6 Medical (six) Branch hours as needed for Nausea and Vomiting (N/V). ondansetron 2021-0 Yes [id number] 4mg Take 1 [facility] 4 mg tablet 4-22 tablet by ity of 00:00: mouth [place] 00 every 6 Medical (six) Branch hours as needed for Nausea and Vomiting (N/V). ondansetron 2021-0 Yes [id number] 4mg Take 1 [facility] 4 mg tablet 4-22 tablet by ity of 00:00: mouth [place] 00 every 6 Medical (six) Branch hours as needed for Nausea and Vomiting (N/V). ondansetron 2021-0 Yes [id number] 4mg Take 1 [facility] 4 mg tablet 4-22 tablet by ity of 00:00: mouth [place] 00 every 6 Medical (six) Branch hours as needed for Nausea and Vomiting (N/V). ondansetron 2021-0 Yes [id number] 4mg Take 1 [facility] 4 mg tablet 4-22 tablet by ity of 00:00: mouth [place] 00 every 6 Medical (six) Branch hours as needed for Nausea and Vomiting (N/V). levoFLOXaci 2021- No [id number] 750mg Take 1 Univers n 750 mg 11-19 tablet by ity o f tablet 00:00: 04:59 mouth [place] 00 :00 daily for Medical 10 days. Branch metroNIDAZO 2021- No [id number] 500mg Take 1 Univers LE 500 mg 11-19 tablet by ity of tablet 00:00: 04:59 mouth [place] 00 :00 every 8 Medical (eight) Branch hours for 10 days. levoFLOXaci 2021- No [id number] 750mg Take 1 Univers n 750 mg 11-19 tablet by ity o f tablet 00:00: 04:59 mouth [place] 00 :00 daily for Medical 10 days. Branch metroNIDAZO 2021- No [id number] 500mg Take 1 Univers LE 500 mg 11-19 tablet by ity of tablet 00:00: 04:59 mouth [place] 00 :00 every 8 Medical (eight) Branch hours for 10 days. HYDROcodone 2021- No [id number] 1{tbl} Take 1 U nivers -acetaminop 11-19 tablet by it y of hen 5-325 00:00: 04:59 mouth [place] mg tablet 00 :00 every 6 Medical (six) Branch hours as needed for Pain (scale 4-6) or Pain (scale 7-10) for up to 5 days. Indication s: acute pain HYDROcodone 2021- No 4647 1{tbl} Take 1 U nivers -acetaminop 11-19 tablet by it y of hen 5-325 00:00: 04:59 mouth [place] mg tablet 00 :00 every 6 Medical (six) Branch hours as needed for Pain (scale 4-6) or Pain (scale 7-10) for up to 5 days. Indication s: acute pain FENTanyl PF 2021- No 25ug 25 mcg, [facility] (SUBLIMAZE 11-19 Slow IV ity o f (PF)) 00:00: 23:04 Push, [place] injection 00 :00 ONCE, 1 Medical 25 mcg dose, On Branch [facility] 11/18/21 at 1900, STAT NaCl 0.9% Yes 1000mL at 125 Univ ers (NS) IV 4-21 mL/hr, IV ity of infusion 22:45: Infusion, [place] 1,000 mL 00 CONTINUOUS Medic al , Starting Branch on [place] 11/18/21 at 1745, Until Discontinu ed, Routine ondansetron Yes 4mg 4 mg, Slow Univers (ZOFRAN 11-18 IV Push, ity of (PF)) 22:36: Q6HPRN, [place] injection 4 06 Starting Medi tito mg on [place] Branch 11/18/21 at 1736, Until Discontinu ed, Routine, Nausea and Vomiting (N/V) morpHINE 2021- No 4mg 4 mg, Slow [facility] injection 4 11-18 IV Push, ity of mg 22:36: 22:35 Q4HPRN, [place] 04 :04 Starting Medical on [place] Branch 11/18/21 at 1736, Until 11/19/21 at 1735, Routine, Pain (scale 7-10) HYDROcodone 2021- No 1{tbl} 1 tablet, Univers -acetaminop 11-18 Oral, ity of hen (NORCO 22:36: 22:35 Q6HPRN, [place] Manuel as 5) 5-325 mg 02 :02 Starting Medi tito tablet 1 on [facility] Branch tablet 11/18/21 at 1736, Until 11/20/21 at 1735, Routine, Pain (scale 4-6) acetaminoph Yes 650mg 650 mg, [facility] en 11-18 Oral, ity of (TYLENOL) 22:35: Q6HPRN, [place] tablet 650 56 Starting Medic al mg on [facility] Branch 11/18/21 at 1735, Until Discontinu ed, Routine, Pain (scale 1-3), Temp > 38.5 C piperacilli 2021-0 2021- No 3.375g 3.375 g, Univers n-tazobacta 11-18 IV ity of m (ZOSYN) 22:30: 21:57 Piggyback, [place] 3.375 g in 00 :00 ONCE, 1 Medica l NaCl 0.9% dose, On Branch (NS) 50 mL [place] MINI-BAG 11/18/21 at 1730, Administer over 30 Minutes, 50 mL
R phylicia for Anti-Infec tive: Documented Infection< br>Documen [place] Infection Site: Abdominal< br>Duratio n of Therapy: Other (see Comments) NaCl 0.9% No 2000mL at 999 Uni vers (NS) bolus 11-18 mL/hr, ity of infusion 22:30: 21:53 2,000 mL, Victor Manuel as 2,000 mL 00 :00 IV Medical Infusion, Branch ONCE, 1 dose, On [place] 11/18/21 at 1730, STAT aspirin No 324mg 324 mg, Unive rs chewable 11-18 Oral, ity of tablet 324 21:15: 20:45 ONCE, 1 [place] Manuel as mg 00 :00 dose, On Medical [place] Branch 11/18/21 at 1615, Routine ondansetron No 4mg 4 mg, Slow Univers (ZOFRAN 11-18 IV Push, ity of (PF)) 21:15: 20:38 ONCE, 1 [place] injection 4 00 :00 dose, On Medi tito mg [place] Branch 11/18/21 at 1615, MO morpHINE No 4mg 4 mg, Slow [facility] injection 4 11-18 IV Push, ity of mg 21:15: 20:40 ONCE, 1 [place] 00 :00 dose, On Medical [place] Branch 11/18/21 at 1615, STAT iopamidol 2021- No [id number] 120mL 120 mL, Univers (ISOVUE 11-18 Intravenou ity o f 370-500 mL) 21:00: 21:00 s, ONCE, 1 [place] injection 00 :00 dose, On Medica l 120 mL [place] Branch 11/18/21 at 1615, Routine Zolpidem Zolpidem No 1{table QD Zolpidem Tartrate 10 Tartrate 10 2-28 t_at_be Tartrate MG MG 00:00: dtime_a 10 MG 00 s_neede d} Zolpidem Zolpidem No 1{table QD Zolpidem Tartrate 10 Tartrate 10 2-28 t_at_be Tartrate MG MG 00:00: dtime_a 10 MG 00 s_neede d} Zolpidem Zolpidem 2020-07 No 1{table QD Zolpidem Tartrate 10 Tartrate 10 2-06 t_at_be Tartrate MG MG 00:00: dtime_a 10 MG 00 s_neede d} Zolpidem Zolpidem 2020-07 No 1{table QD Zolpidem Tartrate 10 Tartrate 10 2-06 t_at_be Tartrate MG MG 00:00: dtime_a 10 MG 00 s_neede d} Zolpidem Zolpidem 2020-07 No 1{table QD Zolpidem Tartrate 10 Tartrate 10 2-06 t_at_be Tartrate MG MG 00:00: dtime_a 10 MG 00 s_neede d} Zolpidem Zolpidem 2020-07 No 1{table QD Zolpidem Tartrate 10 Tartrate 10 2-06 t_at_be Tartrate MG MG 00:00: dtime_a 10 MG 00 s_neede d} Zolpidem Zolpidem No 1{table QD Zolpidem Tartrate 10 Tartrate 10 9-07 t_at_be Tartrate MG MG 00:00: dtime_a 10 MG 00 s_neede d} Wellbutrin Wellbutrin 0 No 1{table QD Wellbutrin XL 150 MG XL 150 MG 8-25 t_in_th XL 150 MG 00:00: e_morni 00 ng} aspirin 81 2020-0 Yes [id number] 81mg Take 1 U nivers mg chewable 8-10 tablet by ity of tablet 00:00: mouth [place] 00 daily. Medical Branch aspirin 81 2020-0 Yes [id number] 81mg Take 1 U nivers mg chewable 8-10 tablet by ity of tablet 00:00: mouth [place] 00 daily. Medical Branch aspirin 81 2020-0 Yes [id number] 81mg Take 1 U nivers mg chewable 8-10 tablet by ity of tablet 00:00: mouth [place] 00 daily. Medical Branch aspirin 81 2020-0 Yes [id number] 81mg Take 1 U nivers mg chewable 8-10 tablet by ity of tablet 00:00: mouth [place] 00 daily. Medical Branch aspirin 81 2020-0 Yes [id number] 81mg Take 1 U nivers mg chewable 8-10 tablet by ity of tablet 00:00: mouth [place] 00 daily. Medical Branch aspirin 81 2020-0 Yes [id number] 81mg Take 1 U nivers mg chewable 8-10 tablet by ity of tablet 00:00: mouth [place] 00 daily. Medical Branch aspirin 81 2020-0 Yes [id number] 81mg Take 1 U nivers mg chewable 8-10 tablet by ity of tablet 00:00: mouth [place] 00 daily. Medical Branch aspirin 81 2020-0 Yes [id number] 81mg Take 1 U nivers mg chewable 8-10 tablet by ity of tablet 00:00: mouth [place] 00 daily. Medical Branch aspirin 81 2020-0 Yes [id number] 81mg Take 1 U nivers mg chewable 8-10 tablet by ity of tablet 00:00: mouth [place] 00 daily. Medical Branch gabapentin 0 Yes 600mg Take 600 [facility] 600 mg 8-09 mg by ity of tablet 21:44: mouth 2 [place] [address] (two) Medical times Branch daily. omeprazole 0 Yes 20mg Take 20 mg U nivers 20 mg 8-09 by mouth ity of capsule 21:44: daily. [place] [address] Medical Branch pravastatin 2020-0 Yes 20mg Take 20 mg Univers 20 mg 8-09 by mouth ity of tablet 21:44: at [place] [address] bedtime. Medical Branch carvediloL 0 Yes 6.25mg Take 6.25 Univers 6.25 mg 8-09 mg by ity of tablet 21:44: mouth 2 [place] [address] (two) Medical times Branch daily with meals. amLODIPine 2020-0 Yes 5mg Take 5 mg [facility] 5 mg tablet 8-09 by mouth ity of 21:44: daily. [place] [address] Medical Branch donepeziL 5 2020-0 Yes 5mg Take 5 mg U nivers mg tablet 8-09 by mouth ity of 21:44: at [place] [address] bedtime. Medical Branch zolpidem 5 2020-0 Yes 5mg Take 5 mg [facility] mg tablet 8-09 by mouth ity of 21:44: at bedtime [place] [address] as needed Medical for Branch Insomnia. gabapentin Yes 600mg Take 600 [facility] 600 mg 8-09 mg by ity of tablet 21:44: mouth 2 [place] [address] (two) Medical times Branch daily. omeprazole Yes 20mg Take 20 mg U [facility] 20 mg 8-09 by mouth ity of capsule 21:44: daily. [place] [address] Medical Branch pravastatin Yes 20mg Take 20 mg Univers 20 mg 8-09 by mouth ity of tablet 21:44: at [place] [address] bedtime. Medical Branch carvediloL Yes 6.25mg Take 6.25 Univers 6.25 mg 8-09 mg by ity of tablet 21:44: mouth 2 [place] [address] (two) Medical times Branch daily with meals. amLODIPine Yes 5mg Take 5 mg [facility] 5 mg tablet 8-09 by mouth ity of 21:44: daily. [place] [address] Medical Branch donepeziL 5 Yes 5mg Take 5 mg U nivers mg tablet 809 by mouth ity of 21:44: at [place] [address] bedtime. Medical Branch zolpidem 5 Yes 5mg Take 5 mg [facility] mg tablet 8-09 by mouth ity of 21:44: at bedtime [place] [address] as needed Medical for Branch Insomnia. sulfur 2020- No [id number] 5mL 5 mL, Unive rs hexafluorid 03-08 Intravenou i ty of e microsphr 17:15: 17:15 s, ONCE, 1 [place] (LUMASON) 00 :00 dose, Mon Medic al injection 5 03/08/21 at [facility] mL 1215, Routine
philosophy faculty member approving Restricted medication : RAJI CORONA nitroglycer Yes .4mg 0.4 mg, Uni vers in 03-08 Sublingual ity of (NITROSTAT) 13:08: , Q5MIN Victor Manuel as sublingual 12 PRN, 3 Medical tablet 0.4 doses, Branch mg Starting 03/08/21 at 0808, Until Discontinu ed, [place], Chest pain acetaminoph 2021- No [id number] 650mg Take 2 Univers en 325 mg 03-08 08-10 tablets by ity of tablet 00:00: 04:59 mouth [place] 00 :00 every 6 Medical (six) Branch hours as needed for Pain (scale 1-3). acetaminoph 2021- No [id number] 650mg Take 2 Univers en 325 mg 03-08-10 tablets by ity of tablet 00:00: 04:59 mouth [place] 00 :00 every 6 Medical (six) Branch hours as needed for Pain (scale 1-3). acetaminoph 2021- No [id number] 650mg Take 2 Univers en 325 mg 03-08-10 tablets by ity of tablet 00:00: 04:59 mouth [place] 00 :00 every 6 Medical (six) Branch hours as needed for Pain (scale 1-3). acetaminoph 2021- No [id number] 650mg Take 2 Univers en 325 mg 03-0810 tablets by ity of tablet 00:00: 04:59 mouth [place] 00 :00 every 6 Medical (six) Branch hours as needed for Pain (scale 1-3). ketorolac Yes 15mg 15 mg, Univer s (TORADOL) 03-07 Slow IV ity of injection 23:20: Push, [place] 15 mg 50 Q6HPRN, Medical Starting Branch [place] 03/07/21 at 1820, Until Discontinu ed, Routine, Pain (scale 4-6)
[facility] Rest[facility] : CHRISTINA CORDOVA KCL 2020- No 20meq 20 mEq, Univers (KLOR-CON 03-07 Oral, ONCE ity of M20) tablet 23:00: 23:05 NOW, 1 Victor Manuel as 20 mEq 00 :00 dose, [facility] 03/07/21 at Branch 1800, Routine ALPRAZolam Yes .5mg 0.5 mg, Univ ers (XANAX) 03-07 Oral, ity of tablet 0.5 20:45: TIDPRN, [place] mg 00 Starting [facility] 03/07/21 Branch at 1545, Until Discontinu ed, Routine, anxiety KCL 2020- No 40meq 40 mEq, Univers (KLOR-CON 03-07 Oral, ity of M20) tablet 14:30: 14:19 ONCE, 1 [place] 40 mEq 00 :00 dose, [facility] 03/07/21 at Branch 0930, Routine amLODIPine 2020-0 Yes 5mg 5 mg, Univer s (NORVASC) 03-07 Oral, ity of tablet 5 mg 14:00: DAILY, [place] 00 First dose Medical on [facility] 03/07/21 at 0900, Until Discontinu ed, Routine furosemide 2020-0 Yes 20mg 20 mg, Unive rs (LASIX) 03-07 Oral, ity of tablet 20 14:00: DAILY, [place] mg 00 First dose Medical on [facility] 03/07/21 at 0900, Until Discontinu ed, Routine omeprazole 2020-0 Yes 20mg 20 mg, Unive rs (PRILOSEC) 03-07 Oral, ity of capsule 20 14:00: DAILY, [place] mg 00 First dose Medical on [facility] 03/07/21 at 0900, Until Discontinu ed, Routine aspirin 2020-0 Yes 81mg 81 mg, Univers chewable 03-07 Oral, ity of tablet 81 14:00: DAILY, [place] mg 00 First dose Medical on [facility] 03/07/21 at 0900, Until Discontinu ed, Routine enoxaparin 0 Yes 30mg 30 mg, Unive rs (LOVENOX) 03-07 Subcutaneo ity of injection 14:00: us, DAILY, [place] 30 mg 00 First dose Medical on [facility] 03/07/21 at 0900, Until Discontinu ed, Routine carvediloL 0 Yes 6.25mg 6.25 mg, U mark (COREG) 03-07 Oral, BID ity of tablet 6.25 13:00: MEALS, [place] mg 00 First dose Medical on [facility] 03/07/21 at 0800, Until Discontinu ed, Routine cyclobenzap 2020-0 202- No 10mg 10 mg, Uni vers rine 03-07 Oral, ity of (FLEXERIL) 04:00: 09:34 ONCE, 1 Victor Manuel as tablet 10 00 :00 dose, Sat Medic al mg 03/06/21 at Branch 2300, Routine cyclobenzap 0 Yes 10mg 10 mg, Univ ers rine 03-07 Oral, ity of (FLEXERIL) 02:48: TIDPRN, [place] tablet 10 04 Starting Medica l mg [facility] 03/06/21 Branch at 2148, Until Discontinu ed, Routine, Muscle Spasms donepeziL 0 Yes 5mg 5 mg, Univers (ARICEPT) 8 Oral, QHS, ity of tablet 5 mg 02:00: First dose [place] 00 on [facility] 03/06/21 at Branch 2100, Until Discontinu ed, Routine pravastatin 0 Yes 20mg 20 mg, Univ ers (PRAVACHOL) 03-07 Oral, QHS, it y of tablet 20 02:00: First dose [place] mg 00 on [facility] 03/06/21 at Branch 2100, Until Discontinu ed, Routine ALPRAZolam 2020- No .5mg 0.5 mg, Uni vers (XANAX) 03-07 Oral, ity of tablet 0.5 01:03: 20:33 QHSPRN, Victor Manuel as mg 56 :13 Starting Medical [facility] 03/06/21 Branch at 2003, Until 03/07/21 at 1533, Routine, anxiety gabapentin Yes 600mg 600 mg, Uni vers (NEURONTIN) 03-07 Oral, BID, it y of tablet 600 01:00: First dose [place] mg 00 on [facility] 03/06/21 at Branch 2000, Until Discontinu ed, Routine zolpidem Yes 5mg 5 mg, Univers (AMBIEN) 03-07 Oral, ity of tablet 5 mg 00:37: QHSPRN, Victor Manuel as 37 Starting Medical [facility] 03/06/21 Branch at 1937, Until Discontinu ed, Routine, Insomnia magnesium 2020- No 2g 2 g, IV Univ ers sulfate in 03-07 Piggyback, it y of water 2 00:15: 00:20 ONCE, 1 [place] gram/50 mL 00 :00 dose, [facility] Medi tito (4 %) 03/06/21 at Branch infusion 2 1915, g Routine morpHINE 2020- No 2mg 2 mg, Slow [facility] injection 2 03-06 IV Push, ity of mg 23:34: 23:33 Q4HPRN, [place] 53 :53 Starting Medical [facility] 03/06/21 Branch at 1834, Until 03/07/21 at [...] en 03-06 Oral, ity of (TYLENOL) 23:34: Q6HPRN, [place] tablet 650 50 Starting Medic al mg 03/06/21 Branch at 1834, Until Discontinu ed, Routine, Pain (scale 1-3) nitroglycer 2020- No .4mg 0.4 mg, [facility] in 03-06 Sublingual ity of (NITROSTAT) 22:21: 01:36 , Q5MIN [place] sublingual 45 :00 PRN, 3 Medical tablet 0.4 doses, Branch mg Starting 03/06/21 at 1721, Until Discontinu ed, [place], Chest pain Tamsulosin Tamsulosin 2020- No 1{capsu QD Tamsulosin HCl 0.4 MG HCl 0.4 MG 03-04 le} HCl 0.4 MG 00:00: 00:00 00 :00 Tamsulosin Tamsulosin 2020- No 1{capsu QD Tamsulosin HCl 0.4 MG HCl 0.4 MG 03-04 le} HCl 0.4 MG 00:00: 00:00 00 :00 phenazopyri 2020- No 200mg 200 mg, U [...]
D uration of therapy: 72 hours iopamidol 0 2020- No [id number] 100mL 100 mL, Univers (ISOVUE 02-07 Intravenou [...] 16:27 ONCE, 1 [place] 00 :00 dose, [place] [facility] 02/07/21 at Branch 1230, STAT NaCl 0.9% 2020- No 1000mL at 999 Uni vers (NS) bolus 02-07 mL/hr, ity of infusion 16:30: 18:00 1,000 mL, Victor Manuel as 1,000 mL 00 :00 IV Medical Infusion, Branch ONCE, 1 dose, 02/07/21 at 1130, [place] phenazopyri 2020-0 Yes [id number] 200mg Take 1 Univers dine 200 mg 7-11 tablet by ity of tablet 00:00: mouth 3 [place] [address] (three) Medical times [place] daily. phenazopyri 2020-0 Yes [id number] 200mg Take 1 Univers dine 200 mg 7-11 tablet by ity of tablet 00:00: mouth 3 [place] 00 (three) Medical times [place] daily. phenazopyri 2020-0 Yes [id number] 200mg Take 1 Univers dine 200 mg 7-11 tablet by ity of tablet 00:00: mouth 3 [place] 00 (three) Medical times Branch daily. phenazopyri 2021- No [id number] 200mg Take 1 Univers dine 200 mg 02-07- tablet by it y of tablet 00:00: 00:00 mouth 3 [place] 00 :00 (three) Medical times Branch daily. cephALEXin 2020- No [id number] 500mg Take 1 Univers (KEFLEX) 02-07 capsule by ity of 500 mg 00:00: [...] tablet 55 daily. l gabapentin Yes 600mg Q.[id number] Take 600 Methodi (NEURONTIN) 6-23 [id number] mg by s t 600 mg 18:44: [...] 18:44: daily. Hospit a 55 l prednisoLON 0 Yes 1[drp] Q.25D Administer Methodi E acetate 6-[address] (PRED 18:44: into the Hospita FORTE) 1 % 55 left eye 4 l ophthalmic (four) suspension times a day. neomycin-ba 0 Yes QD Administer Methodi citracin-po 6-[address] lymyxin 18:44: left eye Hospit a (POLYSPORIN 55 every l ) evening. ophthalmic ointment moxifloxaci Yes 1[drp] Q.[id number] Administer Methodi n (VIGAMOX) 6-[id number] 0.5 % 18:44: 3D into the Hospita ophthalmic 55 left eye 3 l solution (three) times a day. omeprazole Yes 40mg QD Take 40 mg M ethodi (PriLOSEC) 6-[address] 40 MG 18:44: every Hospita capsule 55 morning. l amLODIPine Yes 5mg QD Take 5 mg Me thodi (NORVASC) 5 6-[address] mg tablet 13:44: daily. Hospit a 55 l carvediloL 0 Yes 6.25mg Q.5D Take 6.25 Methodi (COREG) 6-[address] 6.25 MG 13:44: mouth 2 Hospita tablet 55 (two) l times a day with meals. allopurinoL Yes 300mg QD Take 300 M ethodi (ZYLOPRIM) 6-[address] 300 MG 13:44: mouth Hospita tablet 55 daily. l gabapentin Yes 600mg Q.[id number] Take 600 Methodi (NEURONTIN) 6-23 [id number] mg by s t 600 mg 13:44: 3D mouth 3 Hospita tablet 55 (three) l times a day. zolpidem Yes 10mg QD Take 10 mg Met hodi (AMBIEN) 10 6-[address] mg tablet 13:44: nightly as Ho spita 55 needed for l sleep. levothyroxi 0 Yes 25ug QD Take 25 Met hodi ne 6-[address] (SYNTHROID) 13:44: mouth Hospi ta 25 mcg 55 daily. l tablet predniSONE Yes 10mg QD Take 10 mg M ethodi (DELTASONE) 6-[address] 10 mg 13:44: daily. Hospita tablet 55 l furosemide Yes 20mg QD Take 20 mg M ethodi (LASIX) 20 6-[address] mg tablet 13:44: daily. Hospit a 55 l prednisoLON 0 Yes 1[drp] Q.25D Administer Methodi E acetate 6-[address] (PRED 13:44: into the Hospita FORTE) 1 % 55 left eye 4 l ophthalmic (four) suspension times a day. neomycin-ba Yes QD Administer Methodi citracin-po 6-[address] lymyxin 13:44: left eye Hospit a (POLYSPORIN 55 every l ) evening. ophthalmic ointment moxifloxaci Yes 1[drp] Q.[id number] Administer Methodi n (VIGAMOX) 6-[id number] 0.5 % 13:44: 3D into the Hospita ophthalmic 55 left eye 3 l solution (three) times a day. omeprazole Yes 40mg QD Take 40 mg M ethodi (PriLOSEC) - by mouth st 40 MG 13:44: every Hospita capsule 55 morning. l gabapentin 2019-07 Yes 600mg Take 600 [facility] 600 mg 0-28 mg by ity of tablet 19:31: mouth 2 [place] [address] (two) Medical times [place] daily. omeprazole 2019-07 Yes 20mg Take 20 mg U nivers 20 mg 0-28 by mouth ity of capsule 19:31: daily. [place] [address] Medical Branch pravastatin 2019- Yes 20mg Take 20 mg Univers 20 mg 0-28 by mouth ity of tablet 19:31: at [place] [address] bedtime. Medical Branch carvediloL 2019- Yes 6.25mg Take 6.25 Univers 6.25 mg 0-28 mg by ity of tablet 19:31: mouth 2 [place] [address] (two) Medical times Branch daily with meals. amLODIPine 2019- Yes 5mg Take 5 mg [facility] [place] 5 mg tablet 0-28 by mouth ity of 19:31: daily. [place] [address] Medical Branch donepeziL 5 2019- Yes 5mg Take 5 mg U nivers mg tablet 0-28 by mouth ity of 19:31: at [place] [address] bedtime. Medical Branch zolpidem 5 2019-07 Yes 5mg Take 5 mg [facility] mg tablet 0-28 by mouth ity of 19:31: at bedtime [place] [address] as needed Medical for Branch Insomnia. gabapentin 2020- Yes 600mg Take 600 [facility] [place] 600 mg 0-28 mg by ity of tablet 19:31: mouth 2 [place] [address] (two) Medical times Branch daily. omeprazole 2019- Yes 20mg Take 20 mg U nivers 20 mg 0-28 by mouth ity of capsule 19:31: daily. [place] [address] Medical Branch pravastatin 2019- Yes 20mg Take 20 mg Univers 20 mg 0-28 by mouth ity of tablet 19:31: at [place] [address] bedtime. Medical Branch carvediloL 2019- Yes 6.25mg Take 6.25 Univers 6.25 mg 0-28 mg by ity of tablet 19:31: mouth 2 [place] [address] (two) Medical times Branch daily with meals. amLODIPine 2019- Yes 5mg Take 5 mg [facility] 5 mg tablet 0-28 by mouth ity of 19:31: daily. [place] [address] Medical Branch donepeziL 5 2019-07 Yes 5mg Take 5 mg [facility] mg tablet 0-28 by mouth ity of 19:31: at [place] [address] bedtime. Medical Branch zolpidem 5 2019-07 Yes 5mg Take 5 mg [facility] mg tablet 0-28 by mouth ity of 19:31: at bedtime [place] [address] as needed Medical for Branch Insomnia. gabapentin 2019-07 Yes 600mg Take 600 [facility] [place] 600 mg 0-28 mg by ity of tablet 19:31: mouth 2 [place] [address] (two) Medical times Branch daily. omeprazole 2019- Yes 20mg Take 20 mg [facility] 20 mg 0-28 by mouth ity of capsule 19:31: daily. [place] [address] Medical Branch pravastatin 2019- Yes 20mg Take 20 mg [facility] 20 mg 0-28 by mouth ity of tablet 19:31: at [place] [address] bedtime. Medical Branch carvediloL 2019- Yes 6.25mg Take 6.25 [facility] 6.25 mg 0-28 mg by ity of tablet 19:31: mouth 2 [place] [address] (two) Medical times Branch daily with meals. amLODIPine 2019- Yes 5mg Take 5 mg [facility] 5 mg tablet 0-28 by mouth ity of 19:31: daily. [place] [address] Medical Branch donepeziL 5 2019- Yes 5mg Take 5 mg [facility] mg tablet 0-28 by mouth ity of 19:31: at [place] [address] bedtime. Medical Branch zolpidem 5 2019-07 Yes 5mg Take 5 mg [facility] [place] mg tablet 0-28 by mouth ity of 19:31: at bedtime [place] [address] as needed Medical for Branch Insomnia. gabapentin 2019- Yes 600mg Take 600 [facility] [place] 600 mg 0-28 mg by ity of tablet 19:31: mouth 2 [place] [address] (two) Medical times Branch daily. omeprazole 2019- Yes 20mg Take 20 mg [facility] 20 mg 0-28 by mouth ity of capsule 19:31: daily. [place] [address] Medical Branch pravastatin 2019- Yes 20mg Take 20 mg [facility] 20 mg 0-28 by mouth ity of tablet 19:31: at [place] [address] bedtime. Medical Branch carvediloL 2019- Yes 6.25mg Take 6.25 [facility] 6.25 mg 0-28 mg by ity of tablet 19:31: mouth 2 [place] [address] (two) Medical times Branch daily with meals. amLODIPine 2019- Yes 5mg Take 5 mg [facility] [place] 5 mg tablet 0-28 by mouth ity of 19:31: daily. [place] [address] Medical Branch donepeziL 5 2019-07 Yes 5mg Take 5 mg U [facility] mg tablet 0-28 by mouth ity of 19:31: at [place] [address] bedtime. Medical Branch zolpidem 5 2019-07 Yes 5mg Take 5 mg [facility] [place] mg tablet 0-28 by mouth ity of 19:31: at bedtime [place] [address] as needed Medical for Branch Insomnia. gabapentin 2019- Yes 600mg Take 600 [facility] [place] 600 mg 0-28 mg by ity of tablet 19:31: mouth 2 [place] [address] (two) Medical times Branch daily. omeprazole 2019- Yes 20mg Take 20 mg [facility] 20 mg 0-28 by mouth ity of capsule 19:31: daily. [place] [address] Medical Branch pravastatin 2019- Yes 20mg Take 20 mg [facility] 20 mg 0-28 by mouth ity of tablet 19:31: at [place] [address] bedtime. Medical Branch carvediloL 2019- Yes 6.25mg Take 6.25 [facility] 6.25 mg 0-28 mg by ity of tablet 19:31: mouth 2 [place] [address] (two) Medical times Branch daily with meals. amLODIPine 2019-07 Yes 5mg Take 5 mg [facility] [place] 5 mg tablet 0-28 by mouth ity of 19:31: daily. [place] [address] Medical Branch donepeziL 5 2019-07 Yes 5mg Take 5 mg [facility] mg tablet 0-28 by mouth ity of 19:31: at [place] [address] bedtime. Medical Branch zolpidem 5 2019-07 Yes 5mg Take 5 mg [facility] [place] mg tablet 0-28 by mouth ity of 19:31: at bedtime [place] [address] as needed Medical for Branch Insomnia. gabapentin 2019- Yes 600mg Take 600 [facility] 600 mg 0-28 mg by ity of tablet 19:31: mouth 2 [place] [address] (two) Medical times Branch daily. omeprazole 2019-07 Yes 20mg Take 20 mg [facility] 20 mg 0-28 by mouth ity of capsule 19:31: daily. [place] [address] Medical Branch pravastatin 2019-07 Yes 20mg Take 20 mg [facility] 20 mg 0-28 by mouth ity of tablet 19:31: at [place] [address] bedtime. Medical Branch carvediloL 2019-07 Yes 6.25mg Take 6.25 [facility] 6.25 mg 0-28 mg by ity of tablet 19:31: mouth 2 [place] [address] (two) Medical times Branch daily with meals. amLODIPine 2019-07 Yes 5mg Take 5 mg [facility] [place] 5 mg tablet 0-28 by mouth ity of 19:31: daily. [place] [address] Medical Branch donepeziL 5 2019-07 Yes 5mg Take 5 mg [facility] mg tablet 0-28 by mouth ity of 19:31: at [place] [address] bedtime. Medical Branch zolpidem 5 2019-07 Yes 5mg Take 5 mg [facility] mg tablet 0-28 by mouth ity of 19:31: at bedtime [place] [address] as needed Medical for Branch Insomnia. furosemide 2019- Yes 20mg 20 mg, [facility] (LASIX) 0-28 Oral, ity of tablet 20 16:45: DAILY, [place] mg 00 First dose Medical on Mon Branch 05/27/20 at 1145, Until Discontinu ed, Routine omeprazole 2019- Yes 20mg 20 mg, [facility] (PRILOSEC) 0-28 Oral, ity of capsule 20 14:00: DAILY, [place] mg 00 First dose Medical on Mon05/27/20 at 0900, Until Discontinu ed, Routine amLODIPine 2019- Yes 5mg 5 mg, Univer s (NORVASC) 0-28 Oral, ity of tablet 5 mg 14:00: DAILY, [place] 00 First dose Medical on Mon05/27/20 at 0900, Until Discontinu ed, Routine aspirin 2020- Yes 81mg 81 mg, Univers chewable 0-28 Oral, ity of tablet 81 14:00: DAILY, [place] mg 00 First dose Medical on Mon05/27/20 at 0900, Until Discontinu ed, Routine nitroglycer 2019-07 Yes 1[in_us 1 Inch, Univers in (NITROL) 0- ] Transderma it y of 2 % 03:45: l (Apply [place] ointment 1 00 To Skin), Medi tito Inch Q6HHOL, Branch First dose on Mon05/26/20 at 2245, Until Discontinu ed, Routine magnesium 2019-07 2020- No 400mg 400 mg, Uni vers oxide 0-05-27 Oral, ity of (MAG-OX 02:15: 01:58 ONCE, 1 [place] 400) tablet 00 :00 dose, [facility] Med ical 400 mg 05/26/20 Branch at 2115, Routine pravastatin 2019- Yes 20mg 20 mg, Univ ers (PRAVACHOL) 0-28 Oral, QHS, it y of tablet 20 02:00: First dose [place] mg 00 on [facility] 05/26/20 Branch at 2100, Until Discontinu ed, Routine donepeziL 2019-07 Yes 5mg 5 mg, Univers (ARICEPT) 0-28 Oral, QHS, ity of tablet 5 mg 02:00: First dose [place] 00 on [facility] 05/26/20 Branch at 2100, Until Discontinu ed, Routine cyclobenzap 2020- Yes 5mg 5 mg, Unive rs rine 0-28 Oral, TID, ity of (FLEXERIL) 01:00: First dose [place] tablet 5 mg 00 on [facility] Medica l 05/26/20 Branch at 2000, Until Discontinu ed, Routine gabapentin 2020- Yes 600mg 600 mg, Uni vers (NEURONTIN) 0-28 Oral, BID, it y of tablet 600 01:00: First dose [place] mg 00 on [facility] 05/26/20 Branch at 1999, Until Discontinu ed, Routine traMADoL 50 2019-07 Yes [id number] 50mg Take 1 Univ ers mg tablet 0-28 tablet by ity o f 00:00: mouth [place] 00 every 8 Medical (eight) Branch hours as needed for Pain (scale 7-10). Indication s: acute pain furosemide 2019-07 Yes [id number] 20mg Take 1 U nivers 20 mg 0-28 tablet by ity of tablet 00:00: mouth [place] 00 daily. Medical Branch traMADoL 50 2019-07 Yes [id number] 50mg Take 1 Univ ers mg tablet 0-28 tablet by ity o f 00:00: mouth [place] 00 every 8 Medical (eight) Branch hours as needed for Pain (scale 7-10). Indication s: acute pain furosemide 2019-07 Yes [id number] 20mg Take 1 U nivers 20 mg 0-28 tablet by ity of tablet 00:00: mouth [place] 00 daily. Medical Branch traMADoL 50 2019-07 Yes [id number] 50mg Take 1 Univ ers mg tablet 0-28 tablet by ity o f 00:00: mouth [place] 00 every 8 Medical (eight) Branch hours as needed for Pain (scale 7-10). Indication s: acute pain furosemide 2019-07 Yes [id number] 20mg Take 1 U nivers 20 mg 0-28 tablet by ity of tablet 00:00: mouth [place] 00 daily. Medical Branch traMADoL 50 2019-07 Yes [id number] 50mg Take 1 Univ ers mg tablet 0-28 tablet by ity o f 00:00: mouth [place] 00 every 8 Medical (eight) Branch hours as needed for Pain (scale 7-10). Indication s: acute pain furosemide 2019-07 Yes [id number] 20mg Take 1 U nivers 20 mg 0-28 tablet by ity of tablet 00:00: mouth [place] 00 daily. Medical Branch traMADoL 50 2019-07 Yes [id number] 50mg Take 1 Univ ers mg tablet 0-28 tablet by ity o f 00:00: mouth [place] 00 every 8 Medical (eight) Branch hours as needed for Pain (scale 7-10). Indication s: acute pain furosemide 2019-07 Yes [id number] 20mg Take 1 U nivers 20 mg 0-28 tablet by ity of tablet 00:00: mouth [place] 00 daily. Medical Branch traMADoL 50 2019-07 Yes [id number] 50mg Take 1 Univ ers mg tablet 0-28 tablet by ity o f 00:00: mouth [place] 00 every 8 Medical (eight) Branch hours as needed for Pain (scale 7-10). Indication s: acute pain furosemide 2019-07 Yes [id number] 20mg Take 1 U nivers 20 mg 0-28 tablet by ity of tablet 00:00: mouth [place] 00 daily. Medical Branch traMADoL 50 2019-07 Yes [id number] 50mg Take 1 Univ ers mg tablet 0-28 tablet by ity o f 00:00: mouth [place] 00 every 8 Medical (eight) Branch hours as needed for Pain (scale 7-10). Indication s: acute pain furosemide 2019-07 Yes [id number] 20mg Take 1 U nivers 20 mg 0-28 tablet by ity of tablet 00:00: mouth [place] 00 daily. Medical Branch traMADoL 50 2019-07 Yes [id number] 50mg Take 1 Univ ers mg tablet 0-28 tablet by ity o f 00:00: mouth [place] 00 every 8 Medical (eight) Branch hours as needed for Pain (scale 7-10). Indication s: acute pain furosemide 2019-07 Yes [id number] 20mg Take 1 U nivers 20 mg 0-28 tablet by ity of tablet 00:00: mouth [place] 00 daily. Medical Branch furosemide 2019-07- No [id number] 20mg Take 1 Univers 20 mg 0-28 04-22 tablet by ity of tablet 00:00: 00:00 mouth [place] 00 :00 daily. Medical Branch traMADoL 50 2019-07- No [id number] 50mg Take 1 Uni vers mg tablet 0-28 04-21 tablet by ity of 00:00: 00:00 mouth [place] 00 :00 every 8 Medical (eight) Branch hours as needed for Pain (scale 7-10). Indication s: acute pain carvediloL 2019-07 Yes 6.25mg 6.25 mg, U nivers (COREG) 0-27 Oral, BID ity of tablet 6.25 22:00: MEALS, [place] mg 00 First dose Medical on [facility] Branch 05/26/20 at 1700, Until Discontinu ed, Routine enoxaparin 2019-07 Yes 40mg 40 mg, Unive rs (LOVENOX) 0-27 Subcutaneo ity of injection 22:00: us, DAILY, [place] 40 mg 00 First dose Medical on [facility] 05/26/20 at 1700, Until Discontinu ed, Routine HYDROcodone 2019-07 2020- No 1{tbl} Take 1 U nivers -acetaminop 0-26 05- tablet by it y of hen 7.5-325 21:54: 00:00 mouth 2 [place] mg per 14 :00 (two) Medical tablet times Branch daily. metoprolol 2019-07- No 100mg Take 100 U nivers tartrate 0- 10-27 mg by ity of 100 mg 21:54: 00:00 mouth 2 [place] tablet 14 :00 (two) Medical times Branch daily. ALPRAZolam 2019-07- No .25mg Take 0.25 Univers 0.25 mg 0- 10- mg by ity of tablet 21:54: 00:00 mouth 3 [place] 14 :00 (three) Medical times Branch daily as needed. mirtazapine 2019-07- No 15mg Take 15 mg Univers 15 mg 0-26 05- by mouth ity of tablet 21:54: 00:00 at [place] 14 :00 bedtime. Medical Branch traMADOL 50 2019-07- No 50mg Take 50 mg Univers mg tablet 0- by mouth ity o f 21:54: 00:00 every 6 [place] 14 :00 (six) Medical hours as Branch needed. zolpidem 2019-07 Yes 5mg 5 mg, Univers (AMBIEN) 0-27 Oral, ity of tablet 5 mg 21:53: QHSPRN, [place] Manuel as 49 Starting Medical [facility] 05/26/20 at 1653, Until Discontinu ed, Routine, Insomnia nitroglycer 2019-07 Yes .4mg 0.4 mg, Uni vers in 0-27 Sublingual ity of (NITROSTAT) 21:35: , Q5MIN [place] Manuel as sublingual 53 PRN, Medical tablet 0.4 Starting Branc h mg [facility] 05/26/20 at 1635, Until Discontinu ed, Routine, Chest pain ondansetron 2019-07 Yes 4mg 4 mg, Slow Univers (ZOFRAN 0-27 IV Push, ity of (PF)) 21:35: Q6HPRN, [place] injection 4 11 Starting Medi tito mg [facility] 05/26/20 at 1635, Until Discontinu ed, Routine, Nausea and Vomiting (N/V) morpHINE 2019-07 2020- No 2mg 2 mg, Slow [facility] injection 2 05-27 IV Push, ity of mg 21:35: 21:34 Q6HPRN, [place] 00 :00 Starting Medical [facility] 05/26/20 at 1635, Until 05/27/20 at 1634, Routine, Pain (scale 7-10), Chest pain traMADoL 2019-07- No 50mg 50 mg, Univer s (ULTRAM) 05-28 Oral, ity of tablet 50 21:34: 21:33 Q8HPRN, [place] mg 41 :41 Starting Medical [facility] 05/26/20 at 1634, Until [place] 05/28/20 at 1633, Routine, Pain (scale 4-6) acetaminoph 2019-07 Yes 650mg 650 mg, [facility] en Oral, ity of (TYLENOL) 21:34: Q6HPRN, [place] tablet 650 34 Starting Medic al mg [facility] 05/26/20 at 1634, Until Discontinu ed, Routine, Pain (scale 1-3) LORazepam 2019-07 2020- No .5mg 0.5 mg, Univ ers (ATIVAN) 05-26 Slow IV ity of injection 19:30: 18:21 Push, [place] 0.5 mg 00 :00 ONCE, 1 Medical dose, [facility] 05/26/20 at 1430, STAT Ferrous Ferrous 2019-0 Yes Bo 1 tablet C ommon Sulfate Sulfate 04-07 [facility] 00:00: - [facility] 00 [facility] allopurinol 2017-07 Yes 100 mg = 1 Memoria 100 mg oral 1-15 tab, PO, l tablet 19:34: BID, 0 [place] 00 Refill(s) omeprazole 2017-07 Yes 40 mg = 1 Me moria 40 mg oral 1-15 cap, PO, l delayed 19:34: Daily, 0 Rafael n release 00 Refill(s) capsule Mirtazapine 2017-07 Yes 15 mg = 1 M emoria 15 MG Oral 1-15 tab, PO, l Tablet 19:34: Bedtime, 0 Estefani nn 00 Refill(s) allopurinol 2017-07 Yes 100 mg = 1 [facility] 100 mg oral 1-15 tab, PO, l tablet 19:34: BID, 0 Kartik 00 Refill(s) omeprazole 2017-07 Yes 40 mg = 1 Me [place] 40 mg oral 1-15 cap, PO, l delayed 19:34: Daily, 0 [place] n release 00 Refill(s) capsule Mirtazapine 2017-07 Yes 15 mg = 1 M emoria 15 MG Oral 1-15 tab, PO, l Tablet 19:34: Bedtime, 0 [place] nn 00 Refill(s) allopurinol 2017-07 Yes 100 mg = 1 [facility] 100 mg oral 1-15 tab, PO, l tablet 19:34: BID, 0 [place] 00 Refill(s) omeprazole 2017-07 Yes 40 mg = 1 Me mor[place] 40 mg oral 1-15 cap, PO, l delayed 19:34: Daily, 0 [place] n release 00 Refill(s) capsule Mirtazapine 2017-07 Yes 15 mg = 1 M emoria 15 MG Oral 1-15 tab, PO, l Tablet 19:34: Bedtime, 0 [place] nn 00 Refill(s) allopurinol 2017-07 Yes 100 mg = 1 Mem[facility] 100 mg oral 1-15 tab, PO, l tablet 19:34: BID, 0 Kartik 00 Refill(s) omeprazole 2017-07 Yes 40 mg = 1 Me mor[place] 40 mg oral 1-15 cap, PO, l delayed 19:34: Daily, 0 [place] n release 00 Refill(s) capsule Mirtazapine 2017-07 Yes 15 mg = 1 M emoria 15 MG Oral 1-15 tab, PO, l Tablet 19:34: Bedtime, 0 Estef[place] nn 00 Refill(s) allopurinol 2017-07 Yes 100 mg = 1 Mem[facility] 100 mg oral 1-15 tab, PO, l tablet 19:34: BID, 0 [place] 00 Refill(s) omeprazole 2017-07 Yes 40 mg = 1 Me moria 40 mg oral 1-15 cap, PO, l delayed 19:34: Daily, 0 [place] n release 00 Refill(s) capsule Mirtazapine 2017-07 Yes 15 mg = 1 M emoria 15 MG Oral 1-15 tab, PO, l Tablet 19:34: Bedtime, 0 Estef[place] nn 00 Refill(s) Ciprofloxac 2018-0 Yes 500 mg = 1 Memoria in 500 MG 6-29 tab, PO, l Oral Tablet 12:30: Q12H, X 7 H ermann [Cipro] 00 day, # 14 tab, 0 Refill(s) Docusate 2018-0 Yes 100 mg = 1 Mem oria Sodium 100 6-29 cap, PO, l MG Oral 12:30: BID, # 28 Estefani nn Capsule 00 cap, 0 [Colace] Refill(s) Ciprofloxac 2017-0 Yes 500 mg = 1 Memoria in 500 MG 6-29 tab, PO, l Oral Tablet 12:30: Q12H, X 7 H ermann [Cipro] day, # 14 tab, 0 Refill(s) Docusate 2018-0 Yes 100 mg = 1 Mem oria Sodium 100 6-29 cap, PO, l MG Oral 12:30: BID, # 28 Estefani nn Capsule 00 cap, 0 [Colace] Refill(s) Omeprazole 2017-0 No 40 mg, Memor ia 6-29 Route: PO, l 12:30: Drug form: [place] 00 ECCAP, Before Breakfast, Dosing Weight 98.182, kg, Start date: 01/26/18 7:30:00 CDT, Duration: 30 day, Stop date: 02/24/18 7:30:00 CDT Omeprazole 2018-0 No 40 mg, Memor ia 6 Route: PO, l 12:30: Drug form: [place] ECCAP, Before Breakfast, Dosing Weight 98.182, kg, Start date: 01/26/18 7:30:00 CDT, Duration: 30 day, Stop date: 02/24/18 7:30:00 CDT gabapentin 2018-0 Yes PO, Q12H, Me moria 600 MG Oral 6-29 0 l Tablet 12:30: Refill(s) Rafael n 00 oxybutynin 2017-0 Yes 5 mg = 1 Mem oria 5 mg oral 6-29 tab, PO, l tablet 12:30: TID, PRN [place] 00 Other-See Comments, # 20 tab, 0 Refill(s) Protonix No Notes: Memoria 6-29 Tablet l 12:30: should not [place] 00 be chewed or crushed. (Same as: Protonix) gabapentin 2018-0 Yes PO, Q12H, Me moria 600 MG Oral 6-29 0 l Tablet 12:30: Refill(s) Rafael n 00 oxybutynin 2017- Yes 5 mg = 1 Mem oria 5 mg oral -29 tab, PO, l tablet 12:30: TID, PRN [place] 00 Other-See Comments, # 20 tab, 0 Refill(s) Protonix No Notes: Memoria 6-29 Tablet l 12:30: should not Kartik 00 be chewed or crushed. (Same as: Protonix) Ciprofloxac 2017- Yes 500 mg = 1 Memoria in 500 MG - tab, PO, l Oral Tablet 12:30: Q12H, X 7 H ermann [Cipro] 00 day, # 14 tab, 0 Refill(s) Docusate Yes 100 mg = 1 Mem oria Sodium 100 01-26 cap, PO, l MG Oral 12:30: BID, # 28 Estefani nn Capsule 00 cap, 0 [Colace] Refill(s) Omeprazole No 40 mg, Memor ia 01-26 Route: PO, l 12:30: Drug form: Kartik 00 ECCAP, Before Breakfast, Dosing Weight 98.182, kg, Start date: 01/26/18 7:30:00 CDT, Duration: 30 day, Stop date: 02/24/18 7:30:00 CDT gabapentin 2018-0 Yes PO, Q12H, Me moria 600 MG Oral 6-29 0 l Tablet 12:30: Refill(s) [place] n 00 oxybutynin 2017-0 Yes 5 mg = 1 Mem oria 5 mg oral 6-29 tab, PO, l tablet 12:30: TID, PRN Kartik 00 Other-See Comments, # 20 tab, 0 Refill(s) Protonix No Notes: Memoria 6-29 Tablet l 12:30: should not Kartik 00 be chewed or crushed. (Same as: Protonix) Ciprofloxac 2017-0 Yes 500 mg = 1 Memoria in 500 MG 6-29 tab, PO, l Oral Tablet 12:30: Q12H, X 7 H ermann [Cipro] 00 day, # 14 tab, 0 Refill(s) Docusate 2018-0 Yes 100 mg = 1 Mem oria Sodium 100 6-29 cap, PO, l MG Oral 12:30: BID, # 28 Estefani nn Capsule 00 cap, 0 [Colace] Refill(s) Omeprazole 2018-0 No 40 mg, Memor ia 01-26 Route: PO, l 12:30: Drug form: [place] 00 ECCAP, Before Breakfast, Dosing Weight 98.182, kg, Start date: 01/26/18 7:30:00 CDT, Duration: 30 day, Stop date: 02/24/18 7:30:00 CDT gabapentin 2018-0 Yes PO, Q12H, Me moria 600 MG Oral 6-29 0 l Tablet 12:30: Refill(s) Rafael n 00 oxybutynin 2018-0 Yes 5 mg = 1 Mem oria 5 mg oral 6-29 tab, PO, l tablet 12:30: TID, PRN [place] 00 Other-See Comments, # 20 tab, 0 Refill(s) Protonix 2018-0 No Notes: Memoria 6-29 Tablet l 12:30: should not Kartik 00 be chewed or crushed. (Same as: Protonix) Ciprofloxac 2018-0 Yes 500 mg = 1 Memoria in 500 MG 6-29 tab, PO, l Oral Tablet 12:30: Q12H, X 7 H ermann [Cipro] day, # 14 tab, 0 Refill(s) Docusate 2018-0 Yes 100 mg = 1 Mem oria Sodium 100 6-29 cap, PO, l MG Oral 12:30: BID, # 28 Estefani nn Capsule 00 cap, 0 [Colace] Refill(s) Omeprazole 2018-0 No 40 mg, Memor ia 01-26 Route: PO, l 12:30: Drug form: [place] 00 ECCAP, Before Breakfast, Dosing Weight 98.182, kg, Start date: 01/26/18 7:30:00 CDT, Duration: 30 day, Stop date: 02/24/18 7:30:00 CDT gabapentin 2018-0 Yes PO, Q12H, Me moria 600 MG Oral 6-29 0 l Tablet 12:30: Refill(s) Rafael n 00 oxybutynin Yes 5 mg = 1 Mem oria 5 mg oral 6-29 tab, PO, l tablet 12:30: TID, PRN Kartik 00 Other-See Comments, # 20 tab, 0 Refill(s) Protonix No Notes: Memoria 6-29 Tablet l 12:30: should not [place] 00 be chewed or crushed. (Same as: Protonix) Docusate No Notes: Memoria Sodium 100 6-28 (Same as: l MG Oral 22:00: Colace) [place] Capsule 00 (Do Not [Colace] Crush) Docusate No Notes: Memoria Sodium 100 6-28 (Same as: l MG Oral 22:00: Colace) Kartik Capsule 00 (Do Not [Colace] Crush) Docusate No Notes: Memoria Sodium 100 6-28 (Same as: l MG Oral 22:00: Colace) Kartik Capsule 00 (Do Not [Colace] Crush) Docusate No Notes: Memoria Sodium 100 6-28 (Same as: l MG Oral 22:00: Colace) Kartik Capsule 00 (Do Not [Colace] Crush) Docusate No Notes: Memoria Sodium 100 6-28 (Same as: l MG Oral 22:00: Colace) [place] Capsule 00 (Do Not [Colace] Crush) metoprolol No Notes: Memor ia tartrate 6-28 (Same as: l 14:00: Lopressor) [place] gabapentin No Notes: Memor ia 600 MG Oral 6-28 (Same as: l Tablet 14:00: Neurontin) Estefani nn metoprolol No Notes: Memor ia tartrate 6-28 (Same as: l 14:00: Lopressor) Kartik gabapentin No Notes: Memor ia 600 MG Oral 6-28 (Same as: l Tablet 14:00: Neurontin) Estefani nn metoprolol No Notes: Memor ia tartrate 6-28 (Same as: l 14:00: Lopressor) Kartik 00 gabapentin No Notes: Memor ia 600 MG Oral 6-28 (Same as: l Tablet 14:00: Neurontin) metoprolol No Notes: Memor ia tartrate 6-28 (Same as: l 14:00: Lopressor) gabapentin No Notes: Memor ia 600 MG Oral 6-28 (Same as: l Tablet 14:00: Neurontin) metoprolol No Notes: Memor ia tartrate 6-28 (Same as: l 14:00: Lopressor) gabapentin No Notes: Memor ia 600 MG Oral 6-28 (Same as: l Tablet 14:00: Neurontin) tramadol No Notes: Not Mem oria hydrochlori 6-28 to exceed l de 50 MG 12:58: 400mg/day. Her carson Oral Tablet 00 (Same As: Ultram) tramadol No Notes: Not Mem oria hydrochlori 6-28 to exceed l de 50 MG 12:58: 400mg/day. Her carson Oral Tablet 00 (Same As: Ultram) tramadol No Notes: Not Mem oria hydrochlori 6-28 to exceed l de 50 MG 12:58: 400mg/day. Her carson Oral Tablet 00 (Same As: Ultram) tramadol No Notes: Not Mem oria hydrochlori 6-28 to exceed l de 50 MG 12:58: 400mg/day. Her carson Oral Tablet 00 (Same As: Ultram) tramadol No Notes: Not Mem oria hydrochlori 6-28 to exceed l de 50 MG 12:58: 400mg/day. Her carson Oral Tablet 00 (Same As: Ultram) Ciprofloxac No 500 mg = 1 Memoria in 500 MG 6-28 tab, PO, l Oral Tablet 12:54: Q12H, 0 Her carson [Cipro] 00 Refill(s) Ciprofloxac No 500 mg = 1 Memoria in 500 MG 6-28 tab, PO, l Oral Tablet 12:54: Q12H, 0 Her carson [Cipro] 00 Refill(s) Ciprofloxac No 500 mg = 1 Memoria in 500 MG 6-28 tab, PO, l Oral Tablet 12:54: Q12H, 0 Her carson [Cipro] 00 Refill(s) Ciprofloxac No 500 mg = 1 Memoria in 500 MG 6-28 tab, PO, l Oral Tablet 12:54: Q12H, 0 Her carson [Cipro] 00 Refill(s) Ciprofloxac No 500 mg = 1 Memoria in 500 MG 6-28 tab, PO, l Oral Tablet 12:54: Q12H, 0 Her carson [Cipro] 00 Refill(s) Dulcolax No Notes: Memoria Laxative - (Same As: l 12:51: Dulcolax, Kartik 00 Bisco-Lax) Dulcolax No Notes: Memoria Laxative - (Same As: l 12:51: Dulcolax, [place] 00 Bisco-Lax) Dulcolax No Notes: Memoria Laxative 6- (Same As: l 12:51: Dulcolax, [place] 00 Bisco-Lax) Dulcolax No Notes: Memoria Laxative 6- (Same As: l 12:51: Dulcolax, [place] 00 Bisco-Lax) Dulcolax No Notes: Memoria Laxative - (Same As: l 12:51: Dulcolax, Kartik 00 Bisco-Lax) Famotidine No Notes: Memor ia 6- (Same as: l 02:00: Pepcid) Famotidine No Notes: Memor ia 6-28 (Same as: l 02:00: Pepcid) Famotidine No Notes: Memor ia 6-28 (Same as: l 02:00: Pepcid) Famotidine No Notes: Memor ia 6-28 (Same as: l 02:00: Pepcid) Famotidine No Notes: Memor ia 6-28 (Same as: l 02:00: Pepcid) Ciprofloxac No Notes: Do M emoria in 01-24 not l 19:00: refrigerat e Ciprofloxac No Notes: Do M emoria in 01-24 not l 19:00: refrigerat Kartik e Ciprofloxac No Notes: Do M emoria in 01-24 not l 19:00: refrigerat e Ciprofloxac No Notes: Do M emoria in 01-24 not l 19:00: refrigerat e Ciprofloxac No Notes: Do M emoria in 01-24 not l 19:00: refrigerat [place] 00 e ketOROLAC No IV, ONCE Avinash kamari (ANES) 01-24 l 17:14: ketOROLAC No IV, ONCE Avinash kamari (ANES) 01-24 l 17:14: ketOROLAC No IV, ONCE Avinash kamari (ANES) 01-24 l 17:14: ketOROLAC No IV, ONCE Avinash kamari (ANES) 01-24 l 17:14: ketOROLAC No IV, ONCE Avinash kamari (ANES) 01-24 l 17:14: phenol No Notes: Memoria 01-24 WASTE: F/P l 17:06: - Black; E - [facility] Trash Bin glycopyrrol No Route: IV, Memoria ate (ANES) 01-24 Drug form: l 17:06: INJ, ONCE, Stop date: 01/24/18 12:06:00 CDT neostigmine No Route: IV, Memoria (ANES) 01-24 Drug form: l 17:06: INJ, ONCE, Stop date: 01/24/18 12:06:00 CDT phenol No Notes: Memoria 01-24 WASTE: F/P l 17:06: - Black; - [facility] Trash Bin glycopyrrol No Route: IV, Memoria ate (ANES) 01-24 Drug form: l 17:06: INJ, ONCE, Stop date: 01/24/18 12:06:00 CDT neostigmine No Route: IV, Memoria (ANES) 01-24 Drug form: l 17:06: INJ, ONCE, Stop date: 01/24/18 12:06:00 CDT phenol No Notes: Memoria 01-24 WASTE: F/P l 17:06: - Black; E - [facility] Trash Bin glycopyrrol No Route: IV, Memoria ate (ANES) 01-24 Drug form: l 17:06: INJ, ONCE, Stop date: 01/24/18 12:06:00 CDT neostigmine No Route: IV, Memoria (ANES) 01-24 Drug form: l 17:06: INJ, ONCE, Stop date: 01/24/18 12:06:00 CDT phenol No Notes: Memoria 01-24 WASTE: F/P l 17:06: - Black; E - [facility] Trash Bin glycopyrrol No Route: IV, Memoria ate (ANES) 01-24 Drug form: l 17:06: INJ, ONCE, Stop date: 01/24/18 12:06:00 CDT neostigmine No Route: IV, Memoria (ANES) 01-24 Drug form: l 17:06: INJ, ONCE, Stop date: 01/24/18 12:06:00 CDT phenol No Notes: Memoria 01-24 WASTE: F/P l 17:06: - Black; E - [facility] Trash Bin glycopyrrol No Route: IV, Memoria ate (ANES) 01-24 Drug form: l 17:06: INJ, ONCE, Stop date: 01/24/18 12:06:00 CDT neostigmine No Route: IV, Memoria (ANES) 01-24 Drug form: l 17:06: INJ, ONCE, Stop date: 01/24/18 12:06:00 CDT Reglan No Notes: Memoria 01-24 (Same as: l 17:00: Reglan) Reglan No Notes: Memoria 01-24 (Same as: l 17:00: Reglan) Kartik 00 Reglan No Notes: Memoria 01-24 (Same as: l 17:00: Reglan) Kartik 00 Reglan No Notes: Memoria 01-24 (Same as: l 17:00: Reglan) Kartik 00 Reglan No Notes: Memoria 01-24 (Same as: l 17:00: Reglan) Ondansetron No Notes: Avinash kamari 01-24 (Same as: l 16:58: Zofran) MEDICATION WASTE Product Size: 4 mg Product Wasted: ___ mg oxybutynin No Notes: Memor ia 01-24 Same as: l 16:58: Ditropan) Calcium No 1,000 mL, Memor ia Chloride 01-24 Rate: 125 l 0.0014 16:58: ml/hr, Kartik MEQ/ML / 00 Infuse Potassium over: 8 Chloride hr, Route: 0.004 IV, Dosing MEQ/ML / Weight Sodium 98.182 kg, Chloride Total 0.103 Volume: MEQ/ML / 1,000, Sodium Start Lactate date: 0.028 01/24/18 MEQ/ML 11:58:00 Injectable CDT, Solution Duration: 30 day, Stop date: 02/23/18 11:57:00 CDT, 2.12, m2 Hydromorpho No Notes: Avinash kamari ne 01-24 Same as: l 16:58: Dilaudid [place] Acetaminoph No Notes: Do M emoria en 325 MG / 01-24 not exceed l Hydrocodone 16:58: 4gm/day of [place] Bitartrate 00 acetaminop 10 MG Oral hen. (Same Tablet as: [place] 325/10) Acetaminoph No Notes: Max Memoria en 01-24 acetaminop l 16:58: hen = 4000 Kartik 00 mg/day (4 gm/day). (Same as: Tylenol) Ondansetron No Notes: Avinash kamari 01-24 (Same as: l 16:58: Zofran) MEDICATION WASTE Product Size: 4 mg Product Wasted: ___ mg oxybutynin No Notes: Memor ia - Same as: l 16:58: Ditropan) Ondansetron No Notes: Avinash kamari 01-24 (Same as: l 16:58: Zofran) [place] MEDICATION WASTE Product Size: 4 mg Product Wasted: ___ mg oxybutynin No Notes: Memor ia - Same as: l 16:58: Ditropan) Calcium No 1,000 mL, Memor ia Chloride 01-24 Rate: 125 l 0.0014 16:58: ml/hr, Kartik MEQ/ML / 00 Infuse Potassium over: 8 Chloride hr, Route: 0.004 IV, Dosing MEQ/ML / Weight Sodium 98.182 kg, Chloride Total 0.103 Volume: MEQ/ML / 1,000, Sodium Start Lactate date: 0.028 18 MEQ/ML 11:58:00 Injectable CDT, Solution Duration: 30 day, Stop date: 02/23/18 11:57:00 CDT, 2.12, m2 Hydromorpho No Notes: Avinash kamari ne 01-24 Same as: l 16:58: Dilaudid [place] Acetaminoph No Notes: Do M emoria en 325 MG / 01-24 not exceed l Hydrocodone 16:58: 4gm/day of [place] Bitartrate 00 acetaminop 10 MG Oral hen. (Same Tablet as: [place] 325/10) Acetaminoph No Notes: Max Memoria en - acetaminop l 16:58: hen = 4000 [place] 00 mg/day (4 gm/day). (Same as: Tylenol) Calcium No 1,000 mL, Memor ia Chloride 01-24 Rate: 125 l 0.0014 16:58: ml/hr, [place] MEQ/ML / 00 Infuse Potassium over: 8 Chloride hr, Route: 0.004 IV, Dosing MEQ/ML / Weight Sodium 98.182 kg, Chloride Total 0.103 Volume: MEQ/ML / 1,000, Sodium Start Lactate date: 0.028 01/24/18 MEQ/ML 11:58:00 Injectable CDT, Solution Duration: 30 day, Stop date: 02/23/18 11:57:00 CDT, 2.12, m2 Hydromorpho No Notes: Avinash kamari ne 01-24 Same as: l 16:58: Dilaudid [place] Acetaminoph No Notes: Do M emoria en 325 MG / 01-24 not exceed l Hydrocodone 16:58: 4gm/day of Kartik Bitartrate 00 acetaminop 10 MG Oral hen. (Same Tablet as: [place] 325/10) Acetaminoph No Notes: Max Memoria en 01-24 acetaminop l 16:58: hen = 4000 Kartik 00 mg/day (4 gm/day). (Same as: Tylenol) Ondansetron No Notes: Avinash kamari 01-24 (Same as: l 16:58: Zofran) Kartik MEDICATION WASTE Product Size: 4 mg Product Wasted: ___ mg oxybutynin No Notes: Memor ia 01-24 Same as: l 16:58: Ditropan) Kartik 00 Calcium No 1,000 mL, Memor ia Chloride 01-24 Rate: 125 l 0.0014 16:58: ml/hr, Kartik MEQ/ML / 00 Infuse Potassium over: 8 Chloride hr, Route: 0.004 IV, Dosing MEQ/ML / Weight Sodium 98.182 kg, Chloride Total 0.103 Volume: MEQ/ML / 1,000, Sodium Start Lactate date: 0.028 01/24/18 MEQ/ML 11:58:00 Injectable CDT, Solution Duration: 30 day, Stop date: 02/23/18 11:57:00 CDT, 2.12, m2 Hydromorpho No Notes: Avinash kamari ne 01-24 Same as: l 16:58: Dilaudid [place] Acetaminoph No Notes: Do M emoria en 325 MG / 01-24 not exceed l Hydrocodone 16:58: 4gm/day of [place] Bitartrate 00 acetaminop 10 MG Oral hen. (Same Tablet as: [place] 325/10) Acetaminoph No Notes: Max Memoria en 01-24 acetaminop l 16:58: hen = 4000 [place] 00 mg/day (4 gm/day). (Same as: Tylenol) Ondansetron No Notes: Avinash kamari 01-24 (Same as: l 16:58: Zofran) [place] 00 MEDICATION WASTE Product Size: 4 mg Product Wasted: ___ mg oxybutynin No Notes: Memor ia 01-24 Same as: l 16:58: Ditropan) Kartik Calcium No 1,000 mL, Memor ia Chloride 01-24 Rate: 125 l 0.0014 16:58: ml/hr, Kartik MEQ/ML / 00 Infuse Potassium over: 8 Chloride hr, Route: 0.004 IV, Dosing MEQ/ML / Weight Sodium 98.182 kg, Chloride Total 0.103 Volume: MEQ/ML / 1,000, Sodium Start Lactate date: 0.028 01/24/18 MEQ/ML 11:58:00 Injectable CDT, Solution Duration: 30 day, Stop date: 02/23/18 11:57:00 CDT, 2.12, m2 Hydromorpho No Notes: Avinash kamari ne 01-24 Same as: l 16:58: Dilaudid [place] 00 Acetaminoph No Notes: Do M emoria en 325 MG / 01-24 not exceed l Hydrocodone 16:58: 4gm/day of [place] Bitartrate 00 acetaminop 10 MG Oral hen. (Same Tablet as: [place] 325/10) Acetaminoph No Notes: Max Memoria en 01-24 acetaminop l 16:58: hen = 4000 [place] 00 mg/day (4 gm/day). (Same as: Tylenol) Promethazin No 6.25 mg, Me moria e 01-24 Route: l 16:57: IVPB, [place] 00 ONCE, Dosing Weight 98.182, kg, PRN Nausea & Vomiting, Start date: 01/24/18 11:57:00 CDT 72 HR No 1 patch, Memoria Scopolamine 01-24 Route: l 0.0139 16:57: TOP, Drug Rafael n MG/HR 00 Form: Transdermal ERFILM, Patch Dosing Weight 98.182, kg, ONCE, Apply behind ear. Avoid use in elderly., Start date: 01/24/18 11:57:00 CDT, Stop date: 01/24/18 11:57:00 CDT Ondansetron 2018-0 No 4 mg, Memor ia 01-24 Route: l 16:57: IVP, ONCE, Dosing Weight 98.182, kg, PRN Nausea & Vomiting, Start date: 01/24/18 11:57:00 CDT Naloxone 2018-0 No 0.1 mg, Memori a 01-24 Route: l 16:57: SUB-Q, [place] 00 Q6H, Dosing Weight 98.182, kg, PRN Itching, Start date: 01/24/18 11:57:00 CDT, Duration: 30 day, Stop date: 02/23/18 11:56:00 CDT Acetaminoph 2017-0 No 1,000 mg, M emoria en 01-24 Route: l 16:57: IVPB, Drug form: INJ, ONCE, Dosing Weight 98.182, kg, PRN Pain Score 1-3, Start date: 01/24/18 11:57:00 CDT Albuterol 2017-0 No 2.49 mg, Avinash kamari 0.83 MG/ML 01-24 Route: l Inhalant 16:57: NEB, Kartik Solution 00 Q20Min, Dosing Weight 98.182, kg, PRN Wheezing, Priority: STAT, Start date: 01/24/18 11:57:00 CDT, Duration: 30 day, Stop date: 02/23/18 11:56:00 CDT Flumazenil 2018-0 No 0.2 mg, Avinash kamari 01-24 Route: l 16:57: IVP, PRN, Dosing Weight 98.182, kg, PRN Benzodiaze pine Reversal, Initial dose, Start date: 01/24/18 11:57:00 CDT, Duration: 30 day, Stop date: 02/23/18 11:56:00 CDT Fentanyl 2017-0 No 50 Memoria 01-24 microgram, l 16:57: Route: [place] 00 IVP, Q5Min, Dosing Weight 98.182, kg, PRN Pain Score 7-10, Priority: Routine, Start date: 01/24/18 11:57:00 CDT, Duration: 2 doses or times, Stop date: Limited # of times Hydromorpho 2018-0 No 0.5 mg, Mem oria ne 01-24 Route: l 16:57: IVP, Kartik 00 Q5Min, Dosing Weight 98.182, kg, PRN Pain Score 7-10, Start date: 01/24/18 11:57:00 CDT, Duration: 4 doses or times, Stop date: Limited # of times Oxycodone 2018-0 No 10 mg, Memori a 01-24 Route: NG, l 16:57: Drug form: [place] 00 LIQ, Q4H, Dosing Weight 98.182, kg, PRN Pain Score 7-10, Start date: 01/24/18 11:57:00 CDT, Duration: 30 day, Stop date: 02/23/18 11:56:00 CDT Diphenhydra 2018-0 No 12.5 mg, Me moria mine 01-24 Route: l 16:57: IVP, Drug Kartik 00 form: INJ, Q6H, Dosing Weight 98.182, kg, PRN Itching, Start date: 01/24/18 11:57:00 CDT, Duration: 30 day, Stop date: 02/23/18 11:56:00 CDT Meperidine 2018-0 No 12.5 mg, Mem oria 01-24 Route: l 16:57: IVP, Kartik 00 Q30Min, Dosing Weight 98.182, kg, PRN Other -See Comment, For shivering, Start date: 01/24/18 11:57:00 CDT, Duration: 2 doses or times, Stop date: Limited # of times Promethazin 2018-0 No 6.25 mg, Me moria e 01-24 Route: l 16:57: IVPB, Kartik 00 ONCE, Dosing Weight 98.182, kg, PRN Nausea & Vomiting, Start date: 01/24/18 11:57:00 CDT 72 HR 2017-0 No 1 patch, Memoria Scopolamine 01-24 Route: l 0.0139 16:57: TOP, Drug Rafael n MG/HR 00 Form: Transdermal ERFILM, Patch Dosing Weight 98.182, kg, ONCE, Apply behind ear. Avoid use in elderly., Start date: 01/24/18 11:57:00 CDT, Stop date: 01/24/18 11:57:00 CDT Ondansetron 2018-0 No 4 mg, Memor ia 01-24 Route: l 16:57: IVP, ONCE, Dosing Weight 98.182, kg, PRN Nausea & Vomiting, Start date: 01/24/18 11:57:00 CDT Naloxone 2018-0 No 0.1 mg, Memori a 01-24 Route: l 16:57: SUB-Q, [place] 00 Q6H, Dosing Weight 98.182, kg, PRN Itching, Start date: 01/24/18 11:57:00 CDT, Duration: 30 day, Stop date: 02/23/18 11:56:00 CDT Acetaminoph 2017-0 No 1,000 mg, M emoria en 01-24 Route: l 16:57: IVPB, Drug form: INJ, ONCE, Dosing Weight 98.182, kg, PRN Pain Score 1-3, Start date: 01/24/18 11:57:00 CDT Albuterol 2017-0 No 2.49 mg, Avinash kamari 0.83 MG/ML 01-24 Route: l Inhalant 16:57: NEB, Kartik Solution 00 Q20Min, Dosing Weight 98.182, kg, PRN Wheezing, Priority: STAT, Start date: 01/24/18 11:57:00 CDT, Duration: 30 day, Stop date: 02/23/18 11:56:00 CDT Flumazenil 2018-0 No 0.2 mg, Avinash kamari 01-24 Route: l 16:57: IVP, PRN, Dosing Weight 98.182, kg, PRN Benzodiaze pine Reversal, Initial dose, Start date: 01/24/18 11:57:00 CDT, Duration: 30 day, Stop date: 02/23/18 11:56:00 CDT Fentanyl 2017-0 No 50 Memoria 01-24 microgram, l 16:57: Route: [place] 00 IVP, Q5Min, Dosing Weight 98.182, kg, PRN Pain Score 7-10, Priority: Routine, Start date: 01/24/18 11:57:00 CDT, Duration: 2 doses or times, Stop date: Limited # of times Hydromorpho 2018-0 No 0.5 mg, Mem oria ne 01-24 Route: l 16:57: IVP, [place] 00 Q5Min, Dosing Weight 98.182, kg, PRN Pain Score 7-10, Start date: 01/24/18 11:57:00 CDT, Duration: 4 doses or times, Stop date: Limited # of times Oxycodone 2017-0 No 10 mg, Memori a 01-24 Route: NG, l 16:57: Drug form: [place] 00 LIQ, Q4H, Dosing Weight 98.182, kg, PRN Pain Score 7-10, Start date: 01/24/18 11:57:00 CDT, Duration: 30 day, Stop date: 02/23/18 11:56:00 CDT Diphenhydra 2018-0 No 12.5 mg, Me moria mine 01-24 Route: l 16:57: IVP, Drug Kartik 00 form: INJ, Q6H, Dosing Weight 98.182, kg, PRN Itching, Start date: 01/24/18 11:57:00 CDT, Duration: 30 day, Stop date: 02/23/18 11:56:00 CDT Meperidine 2018-0 No 12.5 mg, Mem oria 01-24 Route: l 16:57: IVP, [place] 00 Q30Min, Dosing Weight 98.182, kg, PRN Other -See Comment, For shivering, Start date: 01/24/18 11:57:00 CDT, Duration: 2 doses or times, Stop date: Limited # of times Promethazin 2017-0 No 6.25 mg, Me moria e 01-24 Route: l 16:57: IVPB, Kartik 00 ONCE, Dosing Weight 98.182, kg, PRN Nausea & Vomiting, Start date: 01/24/18 11:57:00 CDT 72 HR 2017-0 No 1 patch, Memoria Scopolamine 01-24 Route: l 0.0139 16:57: TOP, Drug Rafael n MG/HR 00 Form: Transdermal ERFILM, Patch Dosing Weight 98.182, kg, ONCE, Apply behind ear. Avoid use in elderly., Start date: 01/24/18 11:57:00 CDT, Stop date: 01/24/18 11:57:00 CDT Ondansetron 2018-0 No 4 mg, Memor ia 01-24 Route: l 16:57: IVP, ONCE, Dosing Weight 98.182, kg, PRN Nausea & Vomiting, Start date: 01/24/18 11:57:00 CDT Naloxone 2018-0 No 0.1 mg, Memori a 01-24 Route: l 16:57: SUB-Q, [place] 00 Q6H, Dosing Weight 98.182, kg, PRN Itching, Start date: 01/24/18 11:57:00 CDT, Duration: 30 day, Stop date: 02/23/18 11:56:00 CDT Acetaminoph 2017-0 No 1,000 mg, M emoria en 01-24 Route: l 16:57: IVPB, Drug form: INJ, ONCE, Dosing Weight 98.182, kg, PRN Pain Score 1-3, Start date: 01/24/18 11:57:00 CDT Albuterol 2017-0 No 2.49 mg, Avinash kamari 0.83 MG/ML 01-24 Route: l Inhalant 16:57: NEB, Kartik Solution 00 Q20Min, Dosing Weight 98.182, kg, PRN Wheezing, Priority: STAT, Start date: 01/24/18 11:57:00 CDT, Duration: 30 day, Stop date: 02/23/18 11:56:00 CDT Flumazenil 2017-0 No 0.2 mg, Avinash kamari 01-24 Route: l 16:57: IVP, PRN, Dosing Weight 98.182, kg, PRN Benzodiaze pine Reversal, Initial dose, Start date: 01/24/18 11:57:00 CDT, Duration: 30 day, Stop date: 02/23/18 11:56:00 CDT Fentanyl 2017-0 No 50 Memoria 01-24 microgram, l 16:57: Route: [place] 00 IVP, Q5Min, Dosing Weight 98.182, kg, PRN Pain Score 7-10, Priority: Routine, Start date: 01/24/18 11:57:00 CDT, Duration: 2 doses or times, Stop date: Limited # of times Hydromorpho 2018-0 No 0.5 mg, Mem oria ne 01-24 Route: l 16:57: IVP, Kartik 00 Q5Min, Dosing Weight 98.182, kg, PRN Pain Score 7-10, Start date: 01/24/18 11:57:00 CDT, Duration: 4 doses or times, Stop date: Limited # of times Oxycodone 2017-0 No 10 mg, Memori a 01-24 Route: NG, l 16:57: Drug form: [place] 00 LIQ, Q4H, Dosing Weight 98.182, kg, PRN Pain Score 7-10, Start date: 01/24/18 11:57:00 CDT, Duration: 30 day, Stop date: 02/23/18 11:56:00 CDT Diphenhydra 2018-0 No 12.5 mg, Me moria mine 01-24 Route: l 16:57: IVP, Drug [place] 00 form: INJ, Q6H, Dosing Weight 98.182, kg, PRN Itching, Start date: 01/24/18 11:57:00 CDT, Duration: 30 day, Stop date: 02/23/18 11:56:00 CDT Meperidine 2018-0 No 12.5 mg, Mem oria 01-24 Route: l 16:57: IVP, Kartik 00 Q30Min, Dosing Weight 98.182, kg, PRN Other -See Comment, For shivering, Start date: 01/24/18 11:57:00 CDT, Duration: 2 doses or times, Stop date: Limited # of times Promethazin 2018-0 No 6.25 mg, Me moria e 01-24 Route: l 16:57: IVPB, Kartik 00 ONCE, Dosing Weight 98.182, kg, PRN Nausea & Vomiting, Start date: 01/24/18 11:57:00 CDT 72 HR 2017-0 No 1 patch, Memoria Scopolamine 01-24 Route: l 0.0139 16:57: TOP, Drug Rafael n MG/HR 00 Form: Transdermal ERFILM, Patch Dosing Weight 98.182, kg, ONCE, Apply behind ear. Avoid use in elderly., Start date: 01/24/18 11:57:00 CDT, Stop date: 01/24/18 11:57:00 CDT Ondansetron 2018-0 No 4 mg, Memor ia 01-24 Route: l 16:57: IVP, ONCE, Dosing Weight 98.182, kg, PRN Nausea & Vomiting, Start date: 01/24/18 11:57:00 CDT Naloxone 2018-0 No 0.1 mg, Memori a 01-24 Route: l 16:57: SUB-Q, Kartik 00 Q6H, Dosing Weight 98.182, kg, PRN Itching, Start date: 01/24/18 11:57:00 CDT, Duration: 30 day, Stop date: 02/23/18 11:56:00 CDT Acetaminoph 2018-0 No 1,000 mg, M emoria en 01-24 Route: l 16:57: IVPB, Drug form: INJ, ONCE, Dosing Weight 98.182, kg, PRN Pain Score 1-3, Start date: 01/24/18 11:57:00 CDT Albuterol 2017-0 No 2.49 mg, Avinash kamari 0.83 MG/ML 01-24 Route: l Inhalant 16:57: NEB, Kartik Solution 00 Q20Min, Dosing Weight 98.182, kg, PRN Wheezing, Priority: STAT, Start date: 01/24/18 11:57:00 CDT, Duration: 30 day, Stop date: 02/23/18 11:56:00 CDT Flumazenil 2018-0 No 0.2 mg, Avinash kamari 01-24 Route: l 16:57: IVP, PRN, Dosing Weight 98.182, kg, PRN Benzodiaze pine Reversal, Initial dose, Start date: 01/24/18 11:57:00 CDT, Duration: 30 day, Stop date: 02/23/18 11:56:00 CDT Fentanyl 2017-0 No 50 Memoria 01-24 microgram, l 16:57: Route: Kartik 00 IVP, Q5Min, Dosing Weight 98.182, kg, PRN Pain Score 7-10, Priority: Routine, Start date: 01/24/18 11:57:00 CDT, Duration: 2 doses or times, Stop date: Limited # of times Hydromorpho 2018-0 No 0.5 mg, Mem oria ne 01-24 Route: l 16:57: IVP, Kartik 00 Q5Min, Dosing Weight 98.182, kg, PRN Pain Score 7-10, Start date: 01/24/18 11:57:00 CDT, Duration: 4 doses or times, Stop date: Limited # of times Oxycodone 2017-0 No 10 mg, Memori a 01-24 Route: NG, l 16:57: Drug form: Kartik 00 LIQ, Q4H, Dosing Weight 98.182, kg, PRN Pain Score 7-10, Start date: 01/24/18 11:57:00 CDT, Duration: 30 day, Stop date: 02/23/18 11:56:00 CDT Diphenhydra 2018-0 No 12.5 mg, Me moria mine 01-24 Route: l 16:57: IVP, Drug Kartik 00 form: INJ, Q6H, Dosing Weight 98.182, kg, PRN Itching, Start date: 01/24/18 11:57:00 CDT, Duration: 30 day, Stop date: 02/23/18 11:56:00 CDT Meperidine 2018-0 No 12.5 mg, Mem oria 01-24 Route: l 16:57: IVP, [place] 00 Q30Min, Dosing Weight 98.182, kg, PRN Other -See Comment, For shivering, Start date: 01/24/18 11:57:00 CDT, Duration: 2 doses or times, Stop date: Limited # of times Promethazin 2017-0 No 6.25 mg, Me moria e 01-24 Route: l 16:57: IVPB, [place] 00 ONCE, Dosing Weight 98.182, kg, PRN Nausea & Vomiting, Start date: 01/24/18 11:57:00 CDT 72 HR 2017-0 No 1 patch, Memoria Scopolamine 01-24 Route: l 0.0139 16:57: TOP, Drug Rafael n MG/HR 00 Form: Transdermal ERFILM, Patch Dosing Weight 98.182, kg, ONCE, Apply behind ear. Avoid use in elderly., Start date: 01/24/18 11:57:00 CDT, Stop date: 01/24/18 11:57:00 CDT Ondansetron 2018-0 No 4 mg, Memor ia 01-24 Route: l 16:57: IVP, ONCE, Dosing Weight 98.182, kg, PRN Nausea & Vomiting, Start date: 01/24/18 11:57:00 CDT Naloxone 2018-0 No 0.1 mg, Memori a 01-24 Route: l 16:57: SUB-Q, Kartik 00 Q6H, Dosing Weight 98.182, kg, PRN Itching, Start date: 01/24/18 11:57:00 CDT, Duration: 30 day, Stop date: 02/23/18 11:56:00 CDT Acetaminoph 2017-0 No 1,000 mg, M emoria en 01-24 Route: l 16:57: IVPB, Drug form: INJ, ONCE, Dosing Weight 98.182, kg, PRN Pain Score 1-3, Start date: 01/24/18 11:57:00 CDT Albuterol 2017-0 No 2.49 mg, Avinash kamari 0.83 MG/ML 01-24 Route: l Inhalant 16:57: NEB, Kartik Solution 00 Q20Min, Dosing Weight 98.182, kg, PRN Wheezing, Priority: STAT, Start date: 01/24/18 11:57:00 CDT, Duration: 30 day, Stop date: 02/23/18 11:56:00 CDT Flumazenil 2017-0 No 0.2 mg, Avinash kamari 01-24 Route: l 16:57: IVP, PRN, Dosing Weight 98.182, kg, PRN Benzodiaze pine Reversal, Initial dose, Start date: 01/24/18 11:57:00 CDT, Duration: 30 day, Stop date: 02/23/18 11:56:00 CDT Fentanyl 2017-0 No 50 Memoria 01-24 microgram, l 16:57: Route: [place] 00 IVP, Q5Min, Dosing Weight 98.182, kg, PRN Pain Score 7-10, Priority: Routine, Start date: 01/24/18 11:57:00 CDT, Duration: 2 doses or times, Stop date: Limited # of times Hydromorpho 2017-0 No 0.5 mg, Mem oria ne 01-24 Route: l 16:57: IVP, Kartik 00 Q5Min, Dosing Weight 98.182, kg, PRN Pain Score 7-10, Start date: 01/24/18 11:57:00 CDT, Duration: 4 doses or times, Stop date: Limited # of times Oxycodone 2017-0 No 10 mg, Memori a 01-24 Route: NG, l 16:57: Drug form: [place] 00 LIQ, Q4H, Dosing Weight 98.182, kg, PRN Pain Score 7-10, Start date: 01/24/18 11:57:00 CDT, Duration: 30 day, Stop date: 02/23/18 11:56:00 CDT Diphenhydra 2017-0 No 12.5 mg, Me moria mine 01-24 Route: l 16:57: IVP, Drug Kartik 00 form: INJ, Q6H, Dosing Weight 98.182, kg, PRN Itching, Start date: 01/24/18 11:57:00 CDT, Duration: 30 day, Stop date: 02/23/18 11:56:00 CDT Meperidine 2017-0 No 12.5 mg, Mem oria 01-24 Route: l 16:57: IVP, Kartik 00 Q30Min, Dosing Weight 98.182, kg, PRN Other -See Comment, For shivering, Start date: 01/24/18 11:57:00 CDT, Duration: 2 doses or times, Stop date: Limited # of times morphine 2017-0 No Route: IV, Mem oria Sulfate -27 Drug form: l (ANES) 15:21: INJ, ONCE, Estefani nn 00 Stop date: 01/24/18 10:21:00 CDT morphine 2017-0 No Route: IV, Mem oria Sulfate 6-27 Drug form: l (ANES) 15:21: INJ, ONCE, Estefani nn 00 Stop date: 01/24/18 10:21:00 CDT morphine 2017-0 No Route: IV, Mem oria Sulfate 6-27 Drug form: l (ANES) 15:21: INJ, ONCE, Estefani nn 00 Stop date: 01/24/18 10:21:00 CDT morphine 2018-0 No Route: IV, Mem oria Sulfate 6-27 Drug form: l (ANES) 15:21: INJ, ONCE, Estefani nn Stop date: 01/24/18 10:21:00 CDT morphine No Route: IV, Mem oria Sulfate 6-27 Drug form: l (ANES) 15:21: INJ, ONCE, Estefani nn Stop date: 01/24/18 10:21:00 CDT acetaminoph No Route: IV, Memoria en (ANES) 6-27 Drug form: l 10 mg 14:50: INJ, Start Rafael n date: 01/24/18 9:50:00 CDT, Stop date: 01/24/18 10:50:00 CDT acetaminoph No Route: IV, Memoria en (ANES) 6-27 Drug form: l 10 mg 14:50: INJ, Start Rafale n date: 01/24/18 9:50:00 CDT, Stop date: 01/24/18 10:50:00 CDT acetaminoph No Route: IV, Memoria en (ANES) 6-27 Drug form: l 10 mg 14:50: INJ, Start Rafael n date: 01/24/18 9:50:00 CDT, Stop date: 01/24/18 10:50:00 CDT acetaminoph No Route: IV, Memoria en (ANES) 6-27 Drug form: l 10 mg 14:50: INJ, Start Rafael n date: 01/24/18 9:50:00 CDT, Stop date: 01/24/18 10:50:00 CDT acetaminoph No Route: IV, Memoria en (ANES) 6-27 Drug form: l 10 mg 14:50: INJ, Start Rafael n date: 01/24/18 9:50:00 CDT, Stop date: 01/24/18 10:50:00 CDT ondansetron No Route: IV, Memoria (ANES) 6-27 Drug form: l 14:36: INJ, ONCE, Kartik Stop date: 01/24/18 9:36:00 CDT dexamethaso 2018-0 No Route: IV, Memoria ne (ANES) 01-24 Drug form: l 14:36: INJ, ONCE, Stop date: 01/24/18 9:36:00 CDT ondansetron 2018-0 No Route: IV, Memoria (ANES) 01-24 Drug form: l 14:36: INJ, ONCE, Stop date: 01/24/18 9:36:00 CDT dexamethaso 2017-0 No Route: IV, Memoria ne (ANES) 01-24 Drug form: l 14:36: INJ, ONCE, Stop date: 01/24/18 9:36:00 CDT ondansetron 2017-0 No Route: IV, Memoria (ANES) 01-24 Drug form: l 14:36: INJ, ONCE, Stop date: 01/24/18 9:36:00 CDT ondansetron 2017-0 No Route: IV, Memoria (ANES) 01-24 Drug form: l 14:36: INJ, ONCE, Stop date: 01/24/18 9:36:00 CDT dexamethaso 2017-0 No Route: IV, Memoria ne (ANES) 01-24 Drug form: l 14:36: INJ, ONCE, Stop date: 01/24/18 9:36:00 CDT dexamethaso 2017-0 No Route: IV, Memoria ne (ANES) 01-24 Drug form: l 14:36: INJ, ONCE, Stop date: 01/24/18 9:36:00 CDT ondansetron 2017-0 No Route: IV, Memoria (ANES) 01-24 Drug form: l 14:36: INJ, ONCE, Stop date: 01/24/18 9:36:00 CDT dexamethaso 2017-0 No Route: IV, Memoria ne (ANES) 01-24 Drug form: l 14:36: INJ, ONCE, Stop date: 01/24/18 9:36:00 CDT rocuronium 2017-0 No Route: IV, M emoria (ANES) 01-24 Drug form: l 14:31: INJ, ONCE, Stop date: 01/24/18 9:31:00 CDT propofol 2017-0 No Route: IV, Mem oria (ANES) 01-24 Drug form: l 14:31: INJ, ONCE, Stop date: 01/24/18 9:31:00 CDT fentaNYL 2017-0 No Route: IV, Mem oria (ANES) 01-24 Drug form: l 14:31: INJ, ONCE, Stop date: 01/24/18 9:31:00 CDT lidocaine 2017-0 No Route: IV, Me moria (ANES) 01-24 Drug form: l 14:31: INJ, ONCE, Stop date: 01/24/18 9:31:00 CDT succinylcho 2017-0 No Route: IV, Memoria line (ANES) 01-24 Drug form: l 14:31: INJ, ONCE, Stop date: 01/24/18 9:31:00 CDT ceFAZolin 2017-0 No Route: IV, Me moria (ANES) 01-24 Drug form: l 14:31: INJ, ONCE, Stop date: 01/24/18 9:31:00 CDT rocuronium 2017-0 No Route: IV, M emoria (ANES) 01-24 Drug form: l 14:31: INJ, ONCE, Stop date: 01/24/18 9:31:00 CDT propofol 2018-0 No Route: IV, Mem oria (ANES) 01-24 Drug form: l 14:31: INJ, ONCE, Stop date: 01/24/18 9:31:00 CDT fentaNYL 2018-0 No Route: IV, Mem oria (ANES) 01-24 Drug form: l 14:31: INJ, ONCE, Stop date: 01/24/18 9:31:00 CDT lidocaine 2018-0 No Route: IV, Me moria (ANES) 01-24 Drug form: l 14:31: INJ, ONCE, Stop date: 01/24/18 9:31:00 CDT succinylcho 2017-0 No Route: IV, Memoria line (ANES) 01-24 Drug form: l 14:31: INJ, ONCE, Stop date: 01/24/18 9:31:00 CDT ceFAZolin 2017-0 No Route: IV, Me moria (ANES) 01-24 Drug form: l 14:31: INJ, ONCE, Stop date: 01/24/18 9:31:00 CDT rocuronium 2017-0 No Route: IV, M emoria (ANES) 01-24 Drug form: l 14:31: INJ, ONCE, Stop date: 01/24/18 9:31:00 CDT propofol 2017-0 No Route: IV, Mem oria (ANES) 01-24 Drug form: l 14:31: INJ, ONCE, Stop date: 01/24/18 9:31:00 CDT fentaNYL 2017-0 No Route: IV, Mem oria (ANES) 01-24 Drug form: l 14:31: INJ, ONCE, Stop date: 01/24/18 9:31:00 CDT lidocaine 2018-0 No Route: IV, Me moria (ANES) 01-24 Drug form: l 14:31: INJ, ONCE, Stop date: 01/24/18 9:31:00 CDT succinylcho 2017-0 No Route: IV, Memoria line (ANES) 01-24 Drug form: l 14:31: INJ, ONCE, Stop date: 01/24/18 9:31:00 CDT ceFAZolin 2017-0 No Route: IV, Me moria (ANES) 01-24 Drug form: l 14:31: INJ, ONCE, Stop date: 01/24/18 9:31:00 CDT rocuronium 2017-0 No Route: IV, M emoria (ANES) 01-24 Drug form: l 14:31: INJ, ONCE, Stop date: 01/24/18 9:31:00 CDT propofol 2018-0 No Route: IV, Mem oria (ANES) 01-24 Drug form: l 14:31: INJ, ONCE, Stop date: 01/24/18 9:31:00 CDT fentaNYL 2017-0 No Route: IV, Mem oria (ANES) 01-24 Drug form: l 14:31: INJ, ONCE, [place] 00 Stop date: 01/24/18 9:31:00 CDT lidocaine 2017-0 No Route: IV, Me moria (ANES) 01-24 Drug form: l 14:31: INJ, ONCE, [place] 00 Stop date: 01/24/18 9:31:00 CDT succinylcho 2017-0 No Route: IV, Memoria line (ANES) 01-24 Drug form: l 14:31: INJ, ONCE, Stop date: 01/24/18 9:31:00 CDT ceFAZolin 2017-0 No Route: IV, Me moria (ANES) 01-24 Drug form: l 14:31: INJ, ONCE, [place] 00 Stop date: 01/24/18 9:31:00 CDT rocuronium 2017-0 No Route: IV, M emoria (ANES) 01-24 Drug form: l 14:31: INJ, ONCE, Stop date: 01/24/18 9:31:00 CDT propofol 2018-0 No Route: IV, Mem oria (ANES) 01-24 Drug form: l 14:31: INJ, ONCE, Stop date: 01/24/18 9:31:00 CDT fentaNYL 2017-0 No Route: IV, Mem oria (ANES) 01-24 Drug form: l 14:31: INJ, ONCE, Stop date: 01/24/18 9:31:00 CDT lidocaine 2018-0 No Route: IV, Me moria (ANES) 01-24 Drug form: l 14:31: INJ, ONCE, Stop date: 01/24/18 9:31:00 CDT succinylcho 2017-0 No Route: IV, Memoria line (ANES) 01-24 Drug form: l 14:31: INJ, ONCE, Stop date: 01/24/18 9:31:00 CDT ceFAZolin 2017-0 No Route: IV, Me moria (ANES) 01-24 Drug form: l 14:31: INJ, ONCE, [place] 00 Stop date: 01/24/18 9:31:00 CDT midazolam 2018-0 No Route: IV, Me moria (ANES) 01-24 Drug form: l 14:26: SOLN, Kartik 00 ONCE, Stop date: 01/24/18 9:26:00 CDT midazolam 2017-0 No Route: IV, Me moria (ANES) 01-24 Drug form: l 14:26: SOLN, [place] 00 ONCE, Stop date: 01/24/18 9:26:00 CDT midazolam 2018-0 No Route: IV, Me moria (ANES) 01-24 Drug form: l 14:26: SOLN, [place] ONCE, Stop date: 01/24/18 9:26:00 CDT midazolam 2018-0 No Route: IV, Me moria (ANES) 01-24 Drug form: l 14:26: SOLN, Kartik ONCE, Stop date: 01/24/18 9:26:00 CDT midazolam 2018-0 No Route: IV, Me moria (ANES) 01-24 Drug form: l 14:26: SOLN, Kartik ONCE, Stop date: 01/24/18 9:26:00 CDT phenylephri 2017-0 No Route: IV, Memoria ne (ANES) 01-24 Drug form: l 14:21: INJ, ONCE, [place] 00 Stop date: 01/24/18 9:21:00 CDT phenylephri 2017-0 No Route: IV, Memoria ne (ANES) 01-24 Drug form: l 14:21: INJ, ONCE, Stop date: 01/24/18 9:21:00 CDT phenylephri 2017-0 No Route: IV, Memoria ne (ANES) 01-24 Drug form: l 14:21: INJ, ONCE, Stop date: 01/24/18 9:21:00 CDT phenylephri 2017-0 No Route: IV, Memoria ne (ANES) 01-24 Drug form: l 14:21: INJ, ONCE, [place] 00 Stop date: 01/24/18 9:21:00 CDT phenylephri 2017-0 No Route: IV, Memoria ne (ANES) 01-24 Drug form: l 14:21: INJ, ONCE, [place]artik 00 Stop date: 01/24/18 9:21:00 CDT ePHEDrine 2017-0 No Route: IV, Me moria (ANES) 01-24 Drug form: l 14:16: INJ, ONCE, [place] 00 Stop date: 01/24/18 9:16:00 CDT ePHEDrine 2017-0 No Route: IV, Me moria (ANES) 6- Drug form: l 14:16: INJ, ONCE, Stop date: 01/24/18 9:16:00 CDT ePHEDrine 2017-0 No Route: IV, Me moria (ANES) 6- Drug form: l 14:16: INJ, ONCE, Stop date: 01/24/18 9:16:00 CDT ePHEDrine 2017-0 No Route: IV, Me moria (ANES) 6- Drug form: l 14:16: INJ, ONCE, Stop date: 01/24/18 9:16:00 CDT ePHEDrine 2017-0 No Route: IV, Me moria (ANES) 6- Drug form: l 14:16: INJ, ONCE, Stop date: 01/24/18 9:16:00 CDT Lactated 2017-0 No Route: IV, Mem oria Ringers 6-27 Total l Injection 13:22: Volume: Estefani nn IV (ANES) 00 1,000, 1000 mL Start date: 01/24/18 8:22:00 CDT, Stop date: 01/24/18 9:22:00 CDT Lactated 2017-0 No Route: IV, Mem oria Ringers 6-27 Total l Injection 13:22: Volume: Estefani nn IV (ANES) 00 1,000, 1000 mL Start date: 01/24/18 8:22:00 CDT, Stop date: 01/24/18 9:22:00 CDT Lactated 2017-0 No Route: IV, Mem oria Ringers 6-27 Total l Injection 13:22: Volume: Estefani nn IV (ANES) 00 1,000, 1000 mL Start date: 01/24/18 8:22:00 CDT, Stop date: 01/24/18 9:22:00 CDT Lactated 2017-0 No Route: IV, Mem oria Ringers 6-27 Total l Injection 13:22: Volume: Estefani nn IV (ANES) 00 1,000, 1000 mL Start date: 01/24/18 8:22:00 CDT, Stop date: 01/24/18 9:22:00 CDT Lactated 2018-0 No Route: IV, Mem oria Ringers 6-27 Total l Injection 13:22: Volume: Estefani nn IV (ANES) 00 1,000, 1000 mL Start date: 01/24/18 8:22:00 CDT, Stop date: 01/24/18 9:22:00 CDT Calcium 2018-0 No 1,000 mL, Memor ia Chloride 6-27 Rate: 25 l 0.0014 12:03: ml/hr, Kartik MEQ/ML / 00 Infuse Potassium over: 40 Chloride hr, Route: 0.004 IV, Dosing MEQ/ML / Weight Sodium 98.182 kg, Chloride Total 0.103 Volume: MEQ/ML / 1,000, Sodium Start Lactate date: 0.028 01/24/18 MEQ/ML 7:03:00 Injectable CDT, Solution Duration: 30 day, Stop date: 02/23/18 7:02:00 CDT, 2.12, m2 Calcium 2018-0 No 1,000 mL, Memor ia Chloride 6-27 Rate: 25 l 0.0014 12:03: ml/hr, [place] MEQ/ML / 00 Infuse Potassium over: 40 Chloride hr, Route: 0.004 IV, Dosing MEQ/ML / Weight Sodium 98.182 kg, Chloride Total 0.103 Volume: MEQ/ML / 1,000, Sodium Start Lactate date: 0.028 01/24/18 MEQ/ML 7:03:00 Injectable CDT, Solution Duration: 30 day, Stop date: 02/23/18 7:02:00 CDT, 2.12, m2 Calcium 2018-0 No 1,000 mL, Memor ia Chloride 6-27 Rate: 25 l 0.0014 12:03: ml/hr, Kartik MEQ/ML / 00 Infuse Potassium over: 40 Chloride hr, Route: 0.004 IV, Dosing MEQ/ML / Weight Sodium 98.182 kg, Chloride Total 0.103 Volume: MEQ/ML / 1,000, Sodium Start Lactate date: 0.028 01/24/18 MEQ/ML 7:03:00 Injectable CDT, Solution Duration: 30 day, Stop date: 02/23/18 7:02:00 CDT, 2.12, m2 Calcium 2018-0 No 1,000 mL, Memor ia Chloride 6-27 Rate: 25 l 0.0014 12:03: ml/hr, [place] MEQ/ML / 00 Infuse Potassium over: 40 Chloride hr, Route: 0.004 IV, Dosing MEQ/ML / Weight Sodium 98.182 kg, Chloride Total 0.103 Volume: MEQ/ML / 1,000, Sodium Start Lactate date: 0.028 01/24/18 MEQ/ML 7:03:00 Injectable CDT, Solution Duration: 30 day, Stop date: 02/23/18 7:02:00 CDT, 2.12, m2 Calcium 2018-0 No 1,000 mL, Memor ia Chloride 6- Rate: 25 l 0.0014 12:03: ml/hr, [place] MEQ/ML / 00 Infuse Potassium over: 40 Chloride hr, Route: 0.004 IV, Dosing MEQ/ML / Weight Sodium 98.182 kg, Chloride Total 0.103 Volume: MEQ/ML / 1,000, Sodium Start Lactate date: 0.028 01/24/18 MEQ/ML 7:03:00 Injectable CDT, Solution Duration: 30 day, Stop date: 02/23/18 7:02:00 CDT, 2.12, m2 Tramadol 2018-0 Yes 50 mg, PO, Mem oria 6-18 Q4-6H, PRN l 15:50: Pain, # 20 [place] 00 tab, 0 Refill(s) Tramadol 2018-0 Yes 50 mg, PO, Mem oria 6-18 Q4-6H, PRN l 15:50: Pain, # 20 [place] 00 tab, 0 Refill(s) Tramadol 2018-0 Yes 50 mg, PO, Mem oria 6-18 Q4-6H, PRN l 15:50: Pain, # 20 [place] 00 tab, 0 Refill(s) Tramadol 2018-0 Yes 50 mg, PO, Mem oria 6-18 Q4-6H, PRN l 15:50: Pain, # 20 [place] 00 tab, 0 Refill(s) Tramadol 2018-0 Yes 50 mg, PO, Mem oria 6-18 Q4-6H, PRN l 15:50: Pain, # 20 [place] 00 tab, 0 Refill(s) gabapentin 2018-0 Yes 600 mg, Avinash kamari 6-18 PO, TID, 0 l 15:49: Refill(s) gabapentin 2018-0 Yes 600 mg, Avinash kamari 6-18 PO, TID, 0 l 15:49: Refill(s) gabapentin 2018-0 Yes 600 mg, Avinash kamari 6-18 PO, TID, 0 l 15:49: Refill(s) gabapentin 2018-0 Yes 600 mg, Avinash kamari 6-18 PO, TID, 0 l 15:49: Refill(s) gabapentin 2018-0 Yes 600 mg, Avinash kamari 6-18 PO, TID, 0 l 15:49: Refill(s) Mirtazapine 0 No PO, Memori a 6-18 Bedtime, 0 l 15:48: Refill(s) Omeprazole 0 No 40 mg, PO, M emoria 6-18 Daily, 0 l 15:48: Refill(s) metoprolol 0 Yes 25 mg, PO, M emoria tartrate 6-18 BID, 0 l 15:48: Refill(s) Mirtazapine 0 No PO, Memori a 6-18 Bedtime, 0 l 15:48: Refill(s) Omeprazole 0 No 40 mg, PO, M emoria 6-18 Daily, 0 l 15:48: Refill(s) metoprolol 2017-0 Yes 25 mg, PO, M emoria tartrate 6-18 BID, 0 l 15:48: Refill(s) Mirtazapine 0 No PO, Memori a 6-18 Bedtime, 0 l 15:48: Refill(s) Omeprazole 0 No 40 mg, PO, M emoria 6-18 Daily, 0 l 15:48: Refill(s) metoprolol 2017-0 Yes 25 mg, PO, M emoria tartrate 6-18 BID, 0 l 15:48: Refill(s) Mirtazapine 2017-0 No PO, Memori a 6-18 Bedtime, 0 l 15:48: Refill(s) Omeprazole 2018-0 No 40 mg, PO, M emoria 6-18 Daily, 0 l 15:48: Refill(s) metoprolol Yes 25 mg, PO, M emoria tartrate 6-18 BID, 0 l 15:48: Refill(s) Mirtazapine No PO, Memori a 6-18 Bedtime, 0 l 15:48: Refill(s) Omeprazole No 40 mg, PO, M emoria 6-18 Daily, 0 l 15:48: Refill(s) metoprolol Yes 25 mg, PO, M emoria tartrate 6-18 BID, 0 l 15:48: Refill(s) metoprolol 0 Yes 100mg QD Take 100 [facility] succinate 9-08 [facility] (TOPROL XL) 16:03: mouth 100 mg 02 daily. extended release tablet metoprolol Yes 100mg Q.5D Take [address] [facility] [address] (LOPRESSOR) 9-08 [facility] MG 05:21: mouth 2 Medical tablet 37 (two) Center times daily. omeprazole 0 Yes 20mg QD Take [address] [facility] (PRILOSEC) 9-08 by [facility] 20 MG 05:21: daily. Medical capsule 37 [place] ALPRAZolam 0 Yes .25mg Take 0.[address] (XANAX) 9-08 [facility] 0.25 MG 05:21: mouth 3 Medical tablet 37 (three) Center times daily as needed for Anxiety. metoprolol 0 Yes 100mg Q.5D Take [address] (LOPRESSOR) 9-08 [facility] 100 MG 05:21: mouth 2 Medical tablet 37 (two) Center times daily. omeprazole 0 Yes 20mg QD Take [address] (PRILOSEC) 9-08 by [facility] 20 MG 05:21: daily. Medical capsule 37 [facility] ALPRAZolam 2015-0 Yes .25mg Take 0.[address] (XANAX) 9-08 [facility] 0.25 MG 05:21: mouth 3 Medical tablet 37 (three) Center times daily as needed for Anxiety. sertraline 0 Yes MDD (major 25mg Take 1 [facility] (ZOLOFT) 25 9-08 depressive tablet by [facility] mg tablet 00:00: disorder), mouth at 00 recurrent bedtime episode, nightly. mild sertraline Yes MDD (major 25mg Take 1 [facility] (ZOLOFT) 25 9-08 depressive tablet [facility] mg tablet 00:00: disorder), mouth at 00 recurrent bedtime episode, nightly. mild amlodipine amlodipine No 1 Q1D amlodipine Candia 5 mg tablet 5 mg tablet 5 mg M edical Take 1 Take 1 tablet Group tablet tablet Take 1 every day every day tablet by oral by oral every day route for route for by oral 90 days. 90 days. route for 90 days. carvedilol carvedilol No 1 BID carvedilol Candia 6.25 mg 6.25 mg 6.25 mg Medica l tablet Take tablet Take tablet Group 1 tablet 1 tablet Take 1 twice a day twice a day tablet by oral by oral twice a route for route for day by 30 days. 30 days. oral route for 30 days. gabapentin gabapentin No 1capsul Q1D gabapentin Meena 400 mg 400 mg e(s) 400 mg Medical capsule capsule capsule Group Take 1 Take 1 Take 1 capsule capsule capsule every day every day every day by oral by oral by oral route for route for route for 90 days. 90 days. 90 days. pravastatin pravastatin No 1 Q1D pravastati Meena 20 mg 20 mg n 20 mg Medical tablet Take tablet Take tablet Group 1 tablet 1 tablet Take 1 every day every day tablet by oral by oral every day route for route for by oral 90 days. 90 days. route for 90 days. Carvedilol Carvedilol Yes Bo 1 tablet Common Hernandez with food [facility] Amlodipine Amlodipine Yes Bo 1 tablet Common Besylate Besylate Hernandez [facility] Zolpidem Zolpidem Yes Bo 1 tablet C ommon Tartrate Tartrate [facility] Gabapentin Gabapentin Yes Bo 1 tablet Common Hernandez [facility] Belsomra Belsomra Yes Bo 1 tablet C ommon Hernandez at bedtime [facility] as needed [facility] Pravastatin Pravastatin Yes Bo 1 tablet Common [facility] Omep[facility] Omeprazole Yes Bo 1 capsule Common Hernandez 30 minutes [facility] before - [facility] morning [facility] Carvedilol Carvedilol No 1{table BID Carvedilol 6.25 MG 6.25 MG t_with_ 6.25 MG food} Aspirin 81 Aspirin 81 No 1{table QD Aspirin 81 81 MG 81 MG t} 81 MG Furosemide Furosemide No 1{table QD Furosemide 20 MG 20 MG t} 20 MG Gabapentin Gabapentin No 1{table TID Gabapentin 600 MG 600 MG t} 600 MG amLODIPine amLODIPine No 1{table QD amLODIPine Besylate 5 Besylate 5 t} Besylate 5 MG MG MG Zolpidem Zolpidem No 1{table QD Zolpidem Tartrate 10 Tartrate 10 t_at_be Tartrate MG MG dtime_a 10 MG s_neede d} Levothyroxi Levothyroxi No Levothyrox ne Sodium ne Sodium ine Sodium 25 MCG 25 MCG 25 MCG Ferrous Ferrous No 1{table BID Ferrous Sulfate 325 Sulfate 325 t} Sulfate (65 Fe) MG (65 Fe) MG 325 (65 Fe) MG Pravastatin Pravastatin No 1{table QD Pravastati Sodium 20 Sodium 20 t} n Sodium MG MG 20 MG Baclofen 10 Baclofen 10 No 1{table QD Baclofen MG MG t_as_ne 10 MG eded} Allopurinol Allopurinol No Allopurino 300 MG 300 MG l 300 MG Omeprazole Omeprazole No QD Omeprazole 40 MG 40 MG 40 MG Tylenol Tylenol No Tylenol Extra Extra Extra Strength Strength Strength Allopurinol Allopurinol No 1{table QD Allopurino 300 MG 300 MG t} l 300 MG Levothyroxi Levothyroxi No QD Levothyrox ne Sodium ne Sodium ine Sodium 25 MCG 25 MCG 25 MCG amLODIPine amLODIPine No 1{table QD amLODIPine Besylate 5 Besylate 5 t} Besylate 5 MG MG MG Furosemide Furosemide No 1{table QD Furosemide 20 MG 20 MG t} 20 MG Baclofen 10 Baclofen 10 No 1{table QD Baclofen MG MG t_as_ne 10 MG eded} Levothyroxi Levothyroxi No Levothyrox ne Sodium ne Sodium ine Sodium 25 MCG 25 MCG 25 MCG Ferrous Ferrous No 1{table BID Ferrous Sulfate 325 Sulfate 325 t} Sulfate (65 Fe) MG (65 Fe) MG 325 (65 Fe) MG Gabapentin Gabapentin No 1{table TID Gabapentin 600 MG 600 MG t} 600 MG Omeprazole Omeprazole No QD Omeprazole 40 MG 40 MG 40 MG Carvedilol Carvedilol No 1{table BID Carvedilol 6.25 MG 6.25 MG t_with_ 6.25 MG food} Pravastatin Pravastatin No 1{table QD Pravastati Sodium 20 Sodium 20 t} n Sodium MG MG 20 MG Carvedilol Carvedilol No 1{table BID Carvedilol 6.25 MG 6.25 MG t_with_ 6.25 MG food} Tylenol Tylenol No Tylenol Extra Extra Extra Strength Strength Strength Aspirin 81 Aspirin 81 No 1{table QD Aspirin 81 81 MG 81 MG t} 81 MG Allopurinol Allopurinol No Allopurino 300 MG 300 MG l 300 MG Wellbutrin Wellbutrin No 1{table QD Wellbutrin XL 150 MG XL 150 MG t_in_th XL 150 MG e_morni ng} Levothyroxi Levothyroxi No Levothyrox ne Sodium ne Sodium ine Sodium 25 MCG 25 MCG 25 MCG Pravastatin Pravastatin No Pravastati Sodium 20 Sodium 20 n Sodium MG MG 20 MG Carvedilol Carvedilol No 1{table BID Carvedilol 6.25 MG 6.25 MG t_with_ 6.25 MG food} amLODIPine amLODIPine No 1{table QD amLODIPine Besylate 5 Besylate 5 t} Besylate 5 MG MG MG Allopurinol Allopurinol No Allopurino 300 MG 300 MG l 300 MG buPROPion buPROPion No buPROPion HCl ER (XL) HCl ER (XL) HCl ER 150 MG 150 MG (XL) 150 MG Baclofen 10 Baclofen 10 No 1{table QD Baclofen MG MG t_as_ne 10 MG eded} Tylenol Tylenol No Tylenol Extra Extra Extra Strength Strength Strength Carvedilol Carvedilol No Carvedilol 6.25 MG 6.25 MG 6.25 MG Omeprazole Omeprazole No QD Omeprazole 40 MG 40 MG 40 MG Wellbutrin Wellbutrin No 1{table QD Wellbutrin XL 150 MG XL 150 MG t_in_th XL 150 MG e_morni ng} Pravastatin Pravastatin No 1{table QD Pravastati Sodium 20 Sodium 20 t} n Sodium MG MG 20 MG Levothyroxi Levothyroxi No QD Levothyrox ne Sodium ne Sodium ine Sodium 25 MCG 25 MCG 25 MCG Carvedilol Carvedilol No 1{table BID Carvedilol 6.25 MG 6.25 MG t_with_ 6.25 MG food} Aspirin 81 Aspirin 81 No 1{table QD Aspirin 81 81 MG 81 MG t} 81 MG Furosemide Furosemide No 1{table QD Furosemide 20 MG 20 MG t} 20 MG Allopurinol Allopurinol No 1{table QD Allopurino 300 MG 300 MG t} l 300 MG Ferrous Ferrous No 1{table BID Ferrous Sulfate 325 Sulfate 325 t} Sulfate (65 Fe) MG (65 Fe) MG 325 (65 Fe) MG Gabapentin Gabapentin No 2{capsu TID Gabapentin 400 MG 400 MG le} 400 MG Omeprazole Omeprazole No Omeprazole 40 MG 40 MG 40 MG Levothyroxi Levothyroxi No Levothyrox ne Sodium ne Sodium ine Sodium 25 MCG 25 MCG 25 MCG Pravastatin Pravastatin No Pravastati Sodium 20 Sodium 20 n Sodium MG MG 20 MG Carvedilol Carvedilol No 1{table BID Carvedilol 6.25 MG 6.25 MG t_with_ 6.25 MG food} amLODIPine amLODIPine No 1{table QD amLODIPine Besylate 5 Besylate 5 t} Besylate 5 MG MG MG Allopurinol Allopurinol No Allopurino 300 MG 300 MG l 300 MG buPROPion buPROPion No buPROPion HCl ER (XL) HCl ER (XL) HCl ER 150 MG 150 MG (XL) 150 MG Baclofen 10 Baclofen 10 No 1{table QD Baclofen MG MG t_as_ne 10 MG eded} Tylenol Tylenol No Tylenol Extra Extra Extra Strength Strength Strength Carvedilol Carvedilol No Carvedilol 6.25 MG 6.25 MG 6.25 MG Omeprazole Omeprazole No QD Omeprazole 40 MG 40 MG 40 MG Wellbutrin Wellbutrin No 1{table QD Wellbutrin XL 150 MG XL 150 MG t_in_th XL 150 MG e_morni ng} Pravastatin Pravastatin No 1{table QD Pravastati Sodium 20 Sodium 20 t} n Sodium MG MG 20 MG Levothyroxi Levothyroxi No QD Levothyrox ne Sodium ne Sodium ine Sodium 25 MCG 25 MCG 25 MCG Carvedilol Carvedilol No 1{table BID Carvedilol 6.25 MG 6.25 MG t_with_ 6.25 MG food} Aspirin 81 Aspirin 81 No 1{table QD Aspirin 81 81 MG 81 MG t} 81 MG Furosemide Furosemide No 1{table QD Furosemide 20 MG 20 MG t} 20 MG Allopurinol Allopurinol No 1{table QD Allopurino 300 MG 300 MG t} l 300 MG Ferrous Ferrous No 1{table BID Ferrous Sulfate 325 Sulfate 325 t} Sulfate (65 Fe) MG (65 Fe) MG 325 (65 Fe) MG Gabapentin Gabapentin No 2{capsu TID Gabapentin 400 MG 400 MG le} 400 MG Omeprazole Omeprazole No Omeprazole 40 MG 40 MG 40 MG Baclofen 10 Baclofen 10 No 1{table QD Baclofen MG MG t_as_ne 10 MG eded} Carvedilol Carvedilol No 1{table BID Carvedilol 6.25 MG 6.25 MG t_with_ 6.25 MG food} Aspirin 81 Aspirin 81 No 1{table QD Aspirin 81 81 MG 81 MG t} 81 MG Levothyroxi Levothyroxi No Levothyrox ne Sodium ne Sodium ine Sodium 25 MCG 25 MCG 25 MCG Ferrous Ferrous No 1{table BID Ferrous Sulfate 325 Sulfate 325 t} Sulfate (65 Fe) MG (65 Fe) MG 325 (65 Fe) MG Furosemide Furosemide No 1{table QD Furosemide 20 MG 20 MG t} 20 MG Tylenol Tylenol No Tylenol Extra Extra Extra Strength Strength Strength Omeprazole Omeprazole No QD Omeprazole 40 MG 40 MG 40 MG Carvedilol Carvedilol No Carvedilol 6.25 MG 6.25 MG 6.25 MG Allopurinol Allopurinol No Allopurino 300 MG 300 MG l 300 MG Pravastatin Pravastatin No 1{table QD Pravastati Sodium 20 Sodium 20 t} n Sodium MG MG 20 MG Pravastatin Pravastatin No Pravastati Sodium 20 Sodium 20 n Sodium MG MG 20 MG Carvedilol Carvedilol No 1{table BID Carvedilol 6.25 MG 6.25 MG t_with_ 6.25 MG food} Omeprazole Omeprazole No Omeprazole 40 MG 40 MG 40 MG Gabapentin Gabapentin No 2{capsu TID Gabapentin 400 MG 400 MG le} 400 MG amLODIPine amLODIPine No amLODIPine Besylate 5 Besylate 5 Besylate 5 MG MG MG buPROPion buPROPion No buPROPion HCl ER (XL) HCl ER (XL) HCl ER 150 MG 150 MG (XL) 150 MG Baclofen 10 Baclofen 10 No 1{table QD Baclofen MG MG t_as_ne 10 MG eded} Carvedilol Carvedilol No 1{table BID Carvedilol 6.25 MG 6.25 MG t_with_ 6.25 MG food} Aspirin 81 Aspirin 81 No 1{table QD Aspirin 81 81 MG 81 MG t} 81 MG Levothyroxi Levothyroxi No Levothyrox ne Sodium ne Sodium ine Sodium 25 MCG 25 MCG 25 MCG Ferrous Ferrous No 1{table BID Ferrous Sulfate 325 Sulfate 325 t} Sulfate (65 Fe) MG (65 Fe) MG 325 (65 Fe) MG Furosemide Furosemide No 1{table QD Furosemide 20 MG 20 MG t} 20 MG Tylenol Tylenol No Tylenol Extra Extra Extra Strength Strength Strength Omeprazole Omeprazole No QD Omeprazole 40 MG 40 MG 40 MG Carvedilol Carvedilol No Carvedilol 6.25 MG 6.25 MG 6.25 MG Allopurinol Allopurinol No Allopurino 300 MG 300 MG l 300 MG Pravastatin Pravastatin No 1{table QD Pravastati Sodium 20 Sodium 20 t} n Sodium MG MG 20 MG Pravastatin Pravastatin No Pravastati Sodium 20 Sodium 20 n Sodium MG MG 20 MG Carvedilol Carvedilol No 1{table BID Carvedilol 6.25 MG 6.25 MG t_with_ 6.25 MG food} Omeprazole Omeprazole No Omeprazole 40 MG 40 MG 40 MG Gabapentin Gabapentin No 2{capsu TID Gabapentin 400 MG 400 MG le} 400 MG amLODIPine amLODIPine No amLODIPine Besylate 5 Besylate 5 Besylate 5 MG MG MG buPROPion buPROPion No buPROPion HCl ER (XL) HCl ER (XL) HCl ER 150 MG 150 MG (XL) 150 MG Wellbutrin Wellbutrin No 1{table QD Wellbutrin XL 150 MG XL 150 MG t_in_th XL 150 MG e_morni ng} buPROPion buPROPion No buPROPion HCl ER (XL) HCl ER (XL) HCl ER 150 MG 150 MG (XL) 150 MG Allopurinol Allopurinol No 1{table QD Allopurino 300 MG 300 MG t} l 300 MG Baclofen 10 Baclofen 10 No 1{table QD Baclofen MG MG t_as_ne 10 MG eded} amLODIPine amLODIPine No amLODIPine Besylate 5 Besylate 5 Besylate 5 MG MG MG Carvedilol Carvedilol No Carvedilol 6.25 MG 6.25 MG 6.25 MG Levothyroxi Levothyroxi No Levothyrox ne Sodium ne Sodium ine Sodium 25 MCG 25 MCG 25 MCG Ferrous Ferrous No 1{table BID Ferrous Sulfate 325 Sulfate 325 t} Sulfate (65 Fe) MG (65 Fe) MG 325 (65 Fe) MG Carvedilol Carvedilol No 1{table BID Carvedilol 6.25 MG 6.25 MG t_with_ 6.25 MG food} Tylenol Tylenol No Tylenol Extra Extra Extra Strength Strength Strength Allopurinol Allopurinol No Allopurino 300 MG 300 MG l 300 MG Pravastatin Pravastatin No 1{table QD Pravastati Sodium 20 Sodium 20 t} n Sodium MG MG 20 MG Carvedilol Carvedilol No 1{table BID Carvedilol 6.25 MG 6.25 MG t_with_ 6.25 MG food} Omeprazole Omeprazole No QD Omeprazole 40 MG 40 MG 40 MG Omeprazole Omeprazole No Omeprazole 40 MG 40 MG 40 MG Aspirin 81 Aspirin 81 No 1{table QD Aspirin 81 81 MG 81 MG t} 81 MG Gabapentin Gabapentin No 2{capsu TID Gabapentin 400 MG 400 MG le} 400 MG Pravastatin Pravastatin No Pravastati Sodium 20 Sodium 20 n Sodium MG MG 20 MG Gabapentin Gabapentin No Gabapentin 400 MG 400 MG 400 MG amLODIPine amLODIPine No 1{table QD amLODIPine Besylate 5 Besylate 5 t} Besylate 5 MG MG MG Furosemide Furosemide No 1{table QD Furosemide 20 MG 20 MG t} 20 MG Levothyroxi Levothyroxi No QD Levothyrox ne Sodium ne Sodium ine Sodium 25 MCG 25 MCG 25 MCG amLODIPine amLODIPine No amLODIPine Besylate 5 Besylate 5 Besylate 5 MG MG MG Pravastatin Pravastatin No Pravastati Sodium 20 Sodium 20 n Sodium MG MG 20 MG Gabapentin Gabapentin No 2{capsu TID Gabapentin 400 MG 400 MG le} 400 MG Wellbutrin Wellbutrin No 1{table QD Wellbutrin XL 150 MG XL 150 MG t_in_th XL 150 MG e_morni ng} Furosemide Furosemide No 1{table QD Furosemide 20 MG 20 MG t} 20 MG Omeprazole Omeprazole No Omeprazole 40 MG 40 MG 40 MG Carvedilol Carvedilol No 1{table BID Carvedilol 6.25 MG 6.25 MG t_with_ 6.25 MG food} Carvedilol Carvedilol No 1{table BID Carvedilol 6.25 MG 6.25 MG t_with_ 6.25 MG food} Ferrous Ferrous No 1{table BID Ferrous Sulfate 325 Sulfate 325 t} Sulfate (65 Fe) MG (65 Fe) MG 325 (65 Fe) MG buPROPion buPROPion No buPROPion HCl ER (XL) HCl ER (XL) HCl ER 150 MG 150 MG (XL) 150 MG Omeprazole Omeprazole No QD Omeprazole 40 MG 40 MG 40 MG Aspirin 81 Aspirin 81 No 1{table QD Aspirin 81 81 MG 81 MG t} 81 MG Allopurinol Allopurinol No Allopurino 300 MG 300 MG l 300 MG Pravastatin Pravastatin No 1{table QD Pravastati Sodium 20 Sodium 20 t} n Sodium MG MG 20 MG Carvedilol Carvedilol No Carvedilol 6.25 MG 6.25 MG 6.25 MG Gabapentin Gabapentin No Gabapentin 400 MG 400 MG 400 MG Tylenol Tylenol No Tylenol Extra Extra Extra Strength Strength Strength Baclofen 10 Baclofen 10 No 1{table QD Baclofen MG MG t_as_ne 10 MG eded} Levothyroxi Levothyroxi No Levothyrox ne Sodium ne Sodium ine Sodium 25 MCG 25 MCG 25 MCG Pravastatin Pravastatin No 1{table QD Pravastati Sodium 20 Sodium 20 t} n Sodium MG MG 20 MG Zolpidem Zolpidem No 1{table QD Zolpidem Tartrate 10 Tartrate 10 t_at_be Tartrate MG MG dtime_a 10 MG s_neede d} Levothyroxi Levothyroxi No QD Levothyrox ne Sodium ne Sodium ine Sodium 25 MCG 25 MCG 25 MCG Tylenol Tylenol No Tylenol Extra Extra Extra Strength Strength Strength Omeprazole Omeprazole No Omeprazole 40 MG 40 MG 40 MG Allopurinol Allopurinol No Allopurino 300 MG 300 MG l 300 MG Levothyroxi Levothyroxi No Levothyrox ne Sodium ne Sodium ine Sodium 25 MCG 25 MCG 25 MCG Aspirin 81 Aspirin 81 No 1{table QD Aspirin 81 81 MG 81 MG t} 81 MG Omeprazole Omeprazole No QD Omeprazole 40 MG 40 MG 40 MG Allopurinol Allopurinol No 1{table QD Allopurino 300 MG 300 MG t} l 300 MG Gabapentin Gabapentin No 2{capsu TID Gabapentin 400 MG 400 MG le} 400 MG Carvedilol Carvedilol No 1{table BID Carvedilol 6.25 MG 6.25 MG t_with_ 6.25 MG food} Wellbutrin Wellbutrin No 1{table QD Wellbutrin XL 150 MG XL 150 MG t_in_th XL 150 MG e_morni ng} Pravastatin Pravastatin No 1{table QD Pravastati Sodium 20 Sodium 20 t} n Sodium MG MG 20 MG Zolpidem Zolpidem No 1{table QD Zolpidem Tartrate 10 Tartrate 10 t_at_be Tartrate MG MG dtime_a 10 MG s_neede d} Levothyroxi Levothyroxi No QD Levothyrox ne Sodium ne Sodium ine Sodium 25 MCG 25 MCG 25 MCG Tylenol Tylenol No Tylenol Extra Extra Extra Strength Strength Strength Omeprazole Omeprazole No Omeprazole 40 MG 40 MG 40 MG Allopurinol Allopurinol No Allopurino 300 MG 300 MG l 300 MG Levothyroxi Levothyroxi No Levothyrox ne Sodium ne Sodium ine Sodium 25 MCG 25 MCG 25 MCG Aspirin 81 Aspirin 81 No 1{table QD Aspirin 81 81 MG 81 MG t} 81 MG Omeprazole Omeprazole No QD Omeprazole 40 MG 40 MG 40 MG Allopurinol Allopurinol No 1{table QD Allopurino 300 MG 300 MG t} l 300 MG Gabapentin Gabapentin No 2{capsu TID Gabapentin 400 MG 400 MG le} 400 MG Carvedilol Carvedilol No 1{table BID Carvedilol 6.25 MG 6.25 MG t_with_ 6.25 MG food} Wellbutrin Wellbutrin No 1{table QD Wellbutrin XL 150 MG XL 150 MG t_in_th XL 150 MG e_morni ng} Wellbutrin Wellbutrin No 1{table QD Wellbutrin XL 150 MG XL 150 MG t_in_th XL 150 MG e_morni ng} Levothyroxi Levothyroxi No Levothyrox ne Sodium ne Sodium ine Sodium 25 MCG 25 MCG 25 MCG buPROPion buPROPion No buPROPion HCl ER (XL) HCl ER (XL) HCl ER 150 MG 150 MG (XL) 150 MG Aspirin 81 Aspirin 81 No 1{table QD Aspirin 81 81 MG 81 MG t} 81 MG Omeprazole Omeprazole No QD Omeprazole 40 MG 40 MG 40 MG Allopurinol Allopurinol No Allopurino 300 MG 300 MG l 300 MG Omeprazole Omeprazole No Omeprazole 40 MG 40 MG 40 MG Pravastatin Pravastatin No 1{table QD Pravastati Sodium 20 Sodium 20 t} n Sodium MG MG 20 MG Gabapentin Gabapentin No 2{capsu TID Gabapentin 400 MG 400 MG le} 400 MG Carvedilol Carvedilol No Carvedilol 6.25 MG 6.25 MG 6.25 MG Pravastatin Pravastatin No Pravastati Sodium 20 Sodium 20 n Sodium MG MG 20 MG amLODIPine amLODIPine No amLODIPine Besylate 5 Besylate 5 Besylate 5 MG MG MG Tylenol Tylenol No Tylenol Extra Extra Extra Strength Strength Strength Gabapentin Gabapentin No Gabapentin 400 MG 400 MG 400 MG Carvedilol Carvedilol No 1{table BID Carvedilol 6.25 MG 6.25 MG t_with_ 6.25 MG food} Wellbutrin Wellbutrin No 1{table QD Wellbutrin XL 150 MG XL 150 MG t_in_th XL 150 MG e_morni ng} Levothyroxi Levothyroxi No Levothyrox ne Sodium ne Sodium ine Sodium 25 MCG 25 MCG 25 MCG buPROPion buPROPion No buPROPion HCl ER (XL) HCl ER (XL) HCl ER 150 MG 150 MG (XL) 150 MG Aspirin 81 Aspirin 81 No 1{table QD Aspirin 81 81 MG 81 MG t} 81 MG Omeprazole Omeprazole No QD Omeprazole 40 MG 40 MG 40 MG Allopurinol Allopurinol No Allopurino 300 MG 300 MG l 300 MG Omeprazole Omeprazole No Omeprazole 40 MG 40 MG 40 MG Pravastatin Pravastatin No 1{table QD Pravastati Sodium 20 Sodium 20 t} n Sodium MG MG 20 MG Gabapentin Gabapentin No 2{capsu TID Gabapentin 400 MG 400 MG le} 400 MG Carvedilol Carvedilol No Carvedilol 6.25 MG 6.25 MG 6.25 MG allopurinol allopurinol No allopurino [facility] 300 mg 300 mg l 300 mg Medical tablet tablet tablet Pravastatin Pravastatin No Pravastati Sodium 20 Sodium 20 n Sodium MG MG 20 MG amLODIPine amLODIPine No amLODIPine Besylate 5 Besylate 5 Besylate 5 MG MG MG Tylenol Tylenol No Tylenol Extra Extra Extra Strength Strength Strength Gabapentin Gabapentin No Gabapentin 400 MG 400 MG 400 MG Carvedilol Carvedilol No 1{table BID Carvedilol 6.25 MG 6.25 MG t_with_ 6.25 MG food} Wellbutrin Wellbutrin No 1{table QD Wellbutrin XL 150 MG XL 150 MG t_in_th XL 150 MG e_morni ng} Levothyroxi Levothyroxi No Levothyrox ne Sodium ne Sodium ine Sodium 25 MCG 25 MCG 25 MCG buPROPion buPROPion No buPROPion HCl ER (XL) HCl ER (XL) HCl ER 150 MG 150 MG (XL) 150 MG Aspirin 81 Aspirin 81 No 1{table QD Aspirin 81 81 MG 81 MG t} 81 MG amlodipine amlodipine No amlodipine [facility] 5 mg tablet 5 mg tablet 5 mg M edical tablet Omeprazole Omeprazole No QD Omeprazole 40 MG 40 MG 40 MG Allopurinol Allopurinol No Allopurino 300 MG 300 MG l 300 MG Omeprazole Omeprazole No Omeprazole 40 MG 40 MG 40 MG Pravastatin Pravastatin No 1{table QD Pravastati Sodium 20 Sodium 20 t} n Sodium MG MG 20 MG Gabapentin Gabapentin No 2{capsu TID Gabapentin 400 MG 400 MG le} 400 MG Carvedilol Carvedilol No Carvedilol 6.25 MG 6.25 MG 6.25 MG Pravastatin Pravastatin No Pravastati Sodium 20 Sodium 20 n Sodium MG MG 20 MG amLODIPine amLODIPine No amLODIPine Besylate 5 Besylate 5 Besylate 5 MG MG MG Tylenol Tylenol No Tylenol Extra Extra Extra Strength Strength Strength Gabapentin Gabapentin No Gabapentin 400 MG 400 MG 400 MG Carvedilol Carvedilol No 1{table BID Carvedilol 6.25 MG 6.25 MG t_with_ 6.25 MG food} buPROPion buPROPion No buPROPion HCl ER (XL) HCl ER (XL) HCl ER 150 MG 150 MG (XL) 150 MG Carvedilol Carvedilol No Carvedilol 6.25 MG 6.25 MG 6.25 MG Pravastatin Pravastatin No 1{table QD Pravastati Sodium 20 Sodium 20 t} n Sodium MG MG 20 MG Gabapentin Gabapentin No 2{capsu TID Gabapentin 400 MG 400 MG le} 400 MG Aspirin 81 Aspirin 81 No 1{table QD Aspirin 81 81 MG 81 MG t} 81 MG Omeprazole Omeprazole No QD Omeprazole 40 MG 40 MG 40 MG Allopurinol Allopurinol No Allopurino 300 MG 300 MG l 300 MG amLODIPine amLODIPine No amLODIPine Besylate 5 Besylate 5 Besylate 5 MG MG MG Omeprazole Omeprazole No Omeprazole 40 MG 40 MG 40 MG Gabapentin Gabapentin No Gabapentin 400 MG 400 MG 400 MG Levothyroxi Levothyroxi No Levothyrox ne Sodium ne Sodium ine Sodium 25 MCG 25 MCG 25 MCG Carvedilol Carvedilol No 1{table BID Carvedilol 6.25 MG 6.25 MG t_with_ 6.25 MG food} amoxicillin amoxicillin No amoxicilli [facility] 500 mg 500 mg n 500 mg Medical capsule capsule capsule Tylenol Tylenol No Tylenol Extra Extra Extra Strength Strength Strength Pravastatin Pravastatin No Pravastati Sodium 20 Sodium 20 n Sodium MG MG 20 MG Wellbutrin Wellbutrin No 1{table QD Wellbutrin XL 150 MG XL 150 MG t_in_th XL 150 MG e_morni ng} buPROPion buPROPion No buPROPion HCl ER (XL) HCl ER (XL) HCl ER 150 MG 150 MG (XL) 150 MG Carvedilol Carvedilol No Carvedilol 6.25 MG 6.25 MG 6.25 MG Pravastatin Pravastatin No 1{table QD Pravastati Sodium 20 Sodium 20 t} n Sodium MG MG 20 MG Gabapentin Gabapentin No 2{capsu TID Gabapentin 400 MG 400 MG le} 400 MG Aspirin 81 Aspirin 81 No 1{table QD Aspirin 81 81 MG 81 MG t} 81 MG Omeprazole Omeprazole No QD Omeprazole 40 MG 40 MG 40 MG Allopurinol Allopurinol No Allopurino 300 MG 300 MG l 300 MG amLODIPine amLODIPine No amLODIPine Besylate 5 Besylate 5 Besylate 5 MG MG MG Omeprazole Omeprazole No Omeprazole 40 MG 40 MG 40 MG Gabapentin Gabapentin No Gabapentin 400 MG 400 MG 400 MG Levothyroxi Levothyroxi No Levothyrox ne Sodium ne Sodium ine Sodium 25 MCG 25 MCG 25 MCG Carvedilol Carvedilol No 1{table BID Carvedilol 6.25 MG 6.25 MG t_with_ 6.25 MG food} Tylenol Tylenol No Tylenol Extra Extra Extra Strength Strength Strength Pravastatin Pravastatin No Pravastati Sodium 20 Sodium 20 n Sodium MG MG 20 MG Wellbutrin Wellbutrin No 1{table QD Wellbutrin XL 150 MG XL 150 MG t_in_th XL 150 MG e_morni ng} bupropion bupropion No bupropion [facility] HCl XL 150 HCl XL 150 HCl XL 150 Medical mg 24 hr mg 24 hr mg 24 hr tablet, tablet, tablet, extended extended extended release release release Levothyroxi Levothyroxi No Levothyrox ne Sodium ne Sodium ine Sodium 25 MCG 25 MCG 25 MCG amLODIPine amLODIPine No amLODIPine Besylate 5 Besylate 5 Besylate 5 MG MG MG Pravastatin Pravastatin No Pravastati Sodium 20 Sodium 20 n Sodium MG MG 20 MG Omeprazole Omeprazole No Omeprazole 40 MG 40 MG 40 MG buPROPion buPROPion No buPROPion HCl ER (XL) HCl ER (XL) HCl ER 150 MG 150 MG (XL) 150 MG Levothyroxi Levothyroxi No QD Levothyrox ne Sodium ne Sodium ine Sodium 25 MCG 25 MCG 25 MCG Carvedilol Carvedilol No 1{table BID Carvedilol 6.25 MG 6.25 MG t_with_ 6.25 MG food} Allopurinol Allopurinol No 1{table QD Allopurino 300 MG 300 MG t} l 300 MG Aspirin 81 Aspirin 81 No 1{table QD Aspirin 81 81 MG 81 MG t} 81 MG carvedilol carvedilol No carvedilol [facility] 6.25 mg 6.25 mg 6.25 mg Medica l tablet tablet tablet Allopurinol Allopurinol No Allopurino 300 MG 300 MG l 300 MG Omeprazole Omeprazole No QD Omeprazole 40 MG 40 MG 40 MG Gabapentin Gabapentin No Gabapentin 400 MG 400 MG 400 MG Gabapentin Gabapentin No 2{capsu TID Gabapentin 400 MG 400 MG le} 400 MG Tylenol Tylenol No Tylenol Extra Extra Extra Strength Strength Strength Wellbutrin Wellbutrin No 1{table QD Wellbutrin XL 150 MG XL 150 MG t_in_th XL 150 MG e_morni ng} Pravastatin Pravastatin No 1{table QD Pravastati Sodium 20 Sodium 20 t} n Sodium MG MG 20 MG Carvedilol Carvedilol No Carvedilol 6.25 MG 6.25 MG 6.25 MG amLODIPine amLODIPine No amLODIPine Besylate 5 Besylate 5 Besylate 5 MG MG MG Gabapentin Gabapentin No Gabapentin 400 MG 400 MG 400 MG Pravastatin Pravastatin No Pravastati Sodium 20 Sodium 20 n Sodium MG MG 20 MG Omeprazole Omeprazole No Omeprazole 40 MG 40 MG 40 MG Levothyroxi Levothyroxi No Levothyrox ne Sodium ne Sodium ine Sodium 25 MCG 25 MCG 25 MCG Levothyroxi Levothyroxi No QD Levothyrox ne Sodium ne Sodium ine Sodium 25 MCG 25 MCG 25 MCG Carvedilol Carvedilol No 1{table BID Carvedilol 6.25 MG 6.25 MG t_with_ 6.25 MG food} Allopurinol Allopurinol No 1{table QD Allopurino 300 MG 300 MG t} l 300 MG buPROPion buPROPion No buPROPion HCl ER (XL) HCl ER (XL) HCl ER 150 MG 150 MG (XL) 150 MG Carvedilol Carvedilol No Carvedilol 6.25 MG 6.25 MG 6.25 MG Omeprazole Omeprazole No QD Omeprazole 40 MG 40 MG 40 MG Aspirin 81 Aspirin 81 No 1{table QD Aspirin 81 81 MG 81 MG t} 81 MG Gabapentin Gabapentin No 2{capsu TID Gabapentin 400 MG 400 MG le} 400 MG Allopurinol Allopurinol No Allopurino 300 MG 300 MG l 300 MG Wellbutrin Wellbutrin No 1{table QD Wellbutrin XL 150 MG XL 150 MG t_in_th XL 150 MG e_morni ng} Pravastatin Pravastatin No 1{table QD Pravastati Sodium 20 Sodium 20 t} n Sodium MG MG 20 MG Tylenol Tylenol No Tylenol Extra Extra Extra Strength Strength Strength amLODIPine amLODIPine No amLODIPine Besylate 5 Besylate 5 Besylate 5 MG MG MG Gabapentin Gabapentin No Gabapentin 400 MG 400 MG 400 MG Pravastatin Pravastatin No Pravastati Sodium 20 Sodium 20 n Sodium MG MG 20 MG Omeprazole Omeprazole No Omeprazole 40 MG 40 MG 40 MG Levothyroxi Levothyroxi No Levothyrox ne Sodium ne Sodium ine Sodium 25 MCG 25 MCG 25 MCG Levothyroxi Levothyroxi No QD Levothyrox ne Sodium ne Sodium ine Sodium 25 MCG 25 MCG 25 MCG cephalexin cephalexin No cephalexin [facility] 500 mg 500 mg 500 mg Medical capsule capsule capsule Carvedilol Carvedilol No 1{table BID Carvedilol 6.25 MG 6.25 MG t_with_ 6.25 MG food} Allopurinol Allopurinol No 1{table QD Allopurino 300 MG 300 MG t} l 300 MG buPROPion buPROPion No buPROPion HCl ER (XL) HCl ER (XL) HCl ER 150 MG 150 MG (XL) 150 MG Carvedilol Carvedilol No Carvedilol 6.25 MG 6.25 MG 6.25 MG Omeprazole Omeprazole No QD Omeprazole 40 MG 40 MG 40 MG Aspirin 81 Aspirin 81 No 1{table QD Aspirin 81 81 MG 81 MG t} 81 MG Gabapentin Gabapentin No 2{capsu TID Gabapentin 400 MG 400 MG le} 400 MG Allopurinol Allopurinol No Allopurino 300 MG 300 MG l 300 MG Wellbutrin Wellbutrin No 1{table QD Wellbutrin XL 150 MG XL 150 MG t_in_th XL 150 MG e_morni ng} Pravastatin Pravastatin No 1{table QD Pravastati Sodium 20 Sodium 20 t} n Sodium MG MG 20 MG Tylenol Tylenol No Tylenol Extra Extra Extra Strength Strength Strength amLODIPine amLODIPine No amLODIPine Besylate 5 Besylate 5 Besylate 5 MG MG MG Gabapentin Gabapentin No Gabapentin 400 MG 400 MG 400 MG Pravastatin Pravastatin No Pravastati Sodium 20 Sodium 20 n Sodium MG MG 20 MG ciprofloxac ciprofloxac No ciprofloxa [facility] in 500 mg in 500 mg janna 500 mg Medical tablet Take tablet Take tablet 1 tablet 1 tablet Take 1 every 12 every 12 tablet hours by hours by every 12 oral route oral route hours by for 7 days. for 7 days. oral route for 7 days. Omeprazole Omeprazole No Omeprazole 40 MG 40 MG 40 MG Levothyroxi Levothyroxi No Levothyrox ne Sodium ne Sodium ine Sodium 25 MCG 25 MCG 25 MCG Levothyroxi Levothyroxi No QD Levothyrox ne Sodium ne Sodium ine Sodium 25 MCG 25 MCG 25 MCG Carvedilol Carvedilol No 1{table BID Carvedilol 6.25 MG 6.25 MG t_with_ 6.25 MG food} Allopurinol Allopurinol No 1{table QD Allopurino 300 MG 300 MG t} l 300 MG buPROPion buPROPion No buPROPion HCl ER (XL) HCl ER (XL) HCl ER 150 MG 150 MG (XL) 150 MG Carvedilol Carvedilol No Carvedilol 6.25 MG 6.25 MG 6.25 MG Omeprazole Omeprazole No QD Omeprazole 40 MG 40 MG 40 MG Aspirin 81 Aspirin 81 No 1{table QD Aspirin 81 81 MG 81 MG t} 81 MG Gabapentin Gabapentin No 2{capsu TID Gabapentin 400 MG 400 MG le} 400 MG Allopurinol Allopurinol No Allopurino 300 MG 300 MG l 300 MG Wellbutrin Wellbutrin No 1{table QD Wellbutrin XL 150 MG XL 150 MG t_in_th XL 150 MG e_morni ng} Pravastatin Pravastatin No 1{table QD Pravastati Sodium 20 Sodium 20 t} n Sodium MG MG 20 MG Tylenol Tylenol No Tylenol Extra Extra Extra Strength Strength Strength Gabapentin Gabapentin No Gabapentin 400 MG 400 MG 400 MG buPROPion buPROPion No buPROPion HCl ER (XL) HCl ER (XL) HCl ER 150 MG 150 MG (XL) 150 MG Tylenol Tylenol No Tylenol Extra Extra Extra Strength Strength Strength Omeprazole Omeprazole No QD Omeprazole 40 MG 40 MG 40 MG Aspirin 81 Aspirin 81 No 1{table QD Aspirin 81 81 MG 81 MG t} 81 MG Levothyroxi Levothyroxi No Levothyrox ne Sodium ne Sodium ine Sodium 25 MCG 25 MCG 25 MCG Wellbutrin Wellbutrin No 1{table QD Wellbutrin XL 150 MG XL 150 MG t_in_th XL 150 MG e_morni ng} famotidine famotidine No famotidine [facility] 20 mg 20 mg 20 mg Medical tablet tablet tablet Allopurinol Allopurinol No Allopurino 300 MG 300 MG l 300 MG Levothyroxi Levothyroxi No QD Levothyrox ne Sodium ne Sodium ine Sodium 50 MCG 50 MCG 50 MCG Carvedilol Carvedilol No 1{table BID Carvedilol 6.25 MG 6.25 MG t_with_ 6.25 MG food} Pravastatin Pravastatin No 1{table QD Pravastati Sodium 20 Sodium 20 t} n Sodium MG MG 20 MG Pravastatin Pravastatin No Pravastati Sodium 20 Sodium 20 n Sodium MG MG 20 MG Gabapentin Gabapentin No 2{capsu TID Gabapentin 400 MG 400 MG le} 400 MG Omeprazole Omeprazole No Omeprazole 40 MG 40 MG 40 MG Allopurinol Allopurinol No 1{table QD Allopurino 300 MG 300 MG t} l 300 MG amLODIPine amLODIPine No amLODIPine Besylate 5 Besylate 5 Besylate 5 MG MG MG Carvedilol Carvedilol No Carvedilol 6.25 MG 6.25 MG 6.25 MG Gabapentin Gabapentin No Gabapentin 400 MG 400 MG 400 MG Carvedilol Carvedilol No Carvedilol 6.25 MG 6.25 MG 6.25 MG Tylenol Tylenol No Tylenol Extra Extra Extra Strength Strength Strength Omeprazole Omeprazole No QD Omeprazole 40 MG 40 MG 40 MG Aspirin 81 Aspirin 81 No 1{table QD Aspirin 81 81 MG 81 MG t} 81 MG Levothyroxi Levothyroxi No Levothyrox ne Sodium ne Sodium ine Sodium 25 MCG 25 MCG 25 MCG Wellbutrin Wellbutrin No 1{table QD Wellbutrin XL 150 MG XL 150 MG t_in_th XL 150 MG e_morni ng} Allopurinol Allopurinol No Allopurino 300 MG 300 MG l 300 MG Levothyroxi Levothyroxi No QD Levothyrox ne Sodium ne Sodium ine Sodium 50 MCG 50 MCG 50 MCG Carvedilol Carvedilol No 1{table BID Carvedilol 6.25 MG 6.25 MG t_with_ 6.25 MG food} Pravastatin Pravastatin No 1{table QD Pravastati Sodium 20 Sodium 20 t} n Sodium MG MG 20 MG Omeprazole Omeprazole No Omeprazole 40 MG 40 MG 40 MG Gabapentin Gabapentin No 2{capsu TID Gabapentin 400 MG 400 MG le} 400 MG buPROPion buPROPion No buPROPion HCl ER (XL) HCl ER (XL) HCl ER 150 MG 150 MG (XL) 150 MG Allopurinol Allopurinol No 1{table QD Allopurino 300 MG 300 MG t} l 300 MG amLODIPine amLODIPine No amLODIPine Besylate 5 Besylate 5 Besylate 5 MG MG MG Pravastatin Pravastatin No Pravastati Sodium 20 Sodium 20 n Sodium MG MG 20 MG Gabapentin Gabapentin No Gabapentin 400 MG 400 MG 400 MG Carvedilol Carvedilol No Carvedilol 6.25 MG 6.25 MG 6.25 MG Tylenol Tylenol No Tylenol Extra Extra Extra Strength Strength Strength gabapentin gabapentin No gabapentin [facility] 400 mg 400 mg 400 mg Medical capsule capsule capsule Omeprazole Omeprazole No QD Omeprazole 40 MG 40 MG 40 MG Aspirin 81 Aspirin 81 No 1{table QD Aspirin 81 81 MG 81 MG t} 81 MG Levothyroxi Levothyroxi No Levothyrox ne Sodium ne Sodium ine Sodium 25 MCG 25 MCG 25 MCG Wellbutrin Wellbutrin No 1{table QD Wellbutrin XL 150 MG XL 150 MG t_in_th XL 150 MG e_morni ng} Allopurinol Allopurinol No Allopurino 300 MG 300 MG l 300 MG Levothyroxi Levothyroxi No QD Levothyrox ne Sodium ne Sodium ine Sodium 50 MCG 50 MCG 50 MCG Carvedilol Carvedilol No 1{table BID Carvedilol 6.25 MG 6.25 MG t_with_ 6.25 MG food} Pravastatin Pravastatin No 1{table QD Pravastati Sodium 20 Sodium 20 t} n Sodium MG MG 20 MG Omeprazole Omeprazole No Omeprazole 40 MG 40 MG 40 MG Gabapentin Gabapentin No 2{capsu TID Gabapentin 400 MG 400 MG le} 400 MG buPROPion buPROPion No buPROPion HCl ER (XL) HCl ER (XL) HCl ER 150 MG 150 MG (XL) 150 MG Allopurinol Allopurinol No 1{table QD Allopurino 300 MG 300 MG t} l 300 MG amLODIPine amLODIPine No amLODIPine Besylate 5 Besylate 5 Besylate 5 MG MG MG Pravastatin Pravastatin No Pravastati Sodium 20 Sodium 20 n Sodium MG MG 20 MG Gabapentin Gabapentin No Gabapentin 400 MG 400 MG 400 MG Carvedilol Carvedilol No Carvedilol 6.25 MG 6.25 MG 6.25 MG hydrocodone hydrocodone No 1 Q6H hydrocodon [facility] 5 5 e 5 Medical mg-acetamin mg-acetamin mg-acetami ophen 325 ophen 325 nophen 325 mg tablet mg tablet mg tablet Take 1 Take 1 Take 1 tablet tablet tablet every 6 every 6 every 6 hours by hours by hours by oral route oral route oral route for 5 days. for 5 days. for 5 days. Tylenol Tylenol No Tylenol Extra Extra Extra Strength Strength Strength Omeprazole Omeprazole No QD Omeprazole 40 MG 40 MG 40 MG Aspirin 81 Aspirin 81 No 1{table QD Aspirin 81 81 MG 81 MG t} 81 MG Levothyroxi Levothyroxi No Levothyrox ne Sodium ne Sodium ine Sodium 25 MCG 25 MCG 25 MCG Wellbutrin Wellbutrin No 1{table QD Wellbutrin XL 150 MG XL 150 MG t_in_th XL 150 MG e_morni ng} Allopurinol Allopurinol No Allopurino 300 MG 300 MG l 300 MG Levothyroxi Levothyroxi No QD Levothyrox ne Sodium ne Sodium ine Sodium 50 MCG 50 MCG 50 MCG Carvedilol Carvedilol No 1{table BID Carvedilol 6.25 MG 6.25 MG t_with_ 6.25 MG food} Pravastatin Pravastatin No 1{table QD Pravastati Sodium 20 Sodium 20 t} n Sodium MG MG 20 MG Omeprazole Omeprazole No Omeprazole 40 MG 40 MG 40 MG Gabapentin Gabapentin No 2{capsu TID Gabapentin 400 MG 400 MG le} 400 MG buPROPion buPROPion No buPROPion HCl ER (XL) HCl ER (XL) HCl ER 150 MG 150 MG (XL) 150 MG Allopurinol Allopurinol No 1{table QD Allopurino 300 MG 300 MG t} l 300 MG amLODIPine amLODIPine No amLODIPine Besylate 5 Besylate 5 Besylate 5 MG MG MG Pravastatin Pravastatin No Pravastati Sodium 20 Sodium 20 n Sodium MG MG 20 MG Gabapentin Gabapentin No Gabapentin 400 MG 400 MG 400 MG Carvedilol Carvedilol No Carvedilol 6.25 MG 6.25 MG 6.25 MG Tylenol Tylenol No Tylenol Extra Extra Extra Strength Strength Strength Omeprazole Omeprazole No QD Omeprazole 40 MG 40 MG 40 MG Aspirin 81 Aspirin 81 No 1{table QD Aspirin 81 81 MG 81 MG t} 81 MG Levothyroxi Levothyroxi No Levothyrox ne Sodium ne Sodium ine Sodium 25 MCG 25 MCG 25 MCG Wellbutrin Wellbutrin No 1{table QD Wellbutrin XL 150 MG XL 150 MG t_in_th XL 150 MG e_morni ng} ketorolac ketorolac No 1 Q6H ketorolac [facility] 10 mg 10 mg 10 mg Medical tablet Take tablet Take tablet 1 tablet 1 tablet Take 1 every 6 every 6 tablet hours by hours by every 6 oral route oral route hours by for 5 days. for 5 days. oral route for 5 days. Allopurinol Allopurinol No Allopurino 300 MG 300 MG l 300 MG Levothyroxi Levothyroxi No QD Levothyrox ne Sodium ne Sodium ine Sodium 50 MCG 50 MCG 50 MCG Carvedilol Carvedilol No 1{table BID Carvedilol 6.25 MG 6.25 MG t_with_ 6.25 MG food} Pravastatin Pravastatin No 1{table QD Pravastati Sodium 20 Sodium 20 t} n Sodium MG MG 20 MG Omeprazole Omeprazole No Omeprazole 40 MG 40 MG 40 MG Gabapentin Gabapentin No 2{capsu TID Gabapentin 400 MG 400 MG le} 400 MG buPROPion buPROPion No buPROPion HCl ER (XL) HCl ER (XL) HCl ER 150 MG 150 MG (XL) 150 MG Allopurinol Allopurinol No 1{table QD Allopurino 300 MG 300 MG t} l 300 MG amLODIPine amLODIPine No amLODIPine Besylate 5 Besylate 5 Besylate 5 MG MG MG Pravastatin Pravastatin No Pravastati Sodium 20 Sodium 20 n Sodium MG MG 20 MG amLODIPine amLODIPine No amLODIPine Besylate 5 Besylate 5 Besylate 5 MG MG MG Omeprazole Omeprazole No Omeprazole 40 MG 40 MG 40 MG levofloxaci levofloxaci No levofloxac [facility] n 500 mg n 500 mg in 500 mg Me dical tablet tablet tablet Wellbutrin Wellbutrin No 1{table QD Wellbutrin XL 150 MG XL 150 MG t_in_ XL 150 MG e_morni ng} Levothyroxi Levothyroxi No QD Levothyrox ne Sodium ne Sodium ine Sodium 50 MCG 50 MCG 50 MCG Tylenol Tylenol No Tylenol Extra Extra Extra Strength Strength Strength Pravastatin Pravastatin No Pravastati Sodium 20 Sodium 20 n Sodium MG MG 20 MG Gabapentin Gabapentin No 2{capsu TID Gabapentin 400 MG 400 MG le} 400 MG Allopurinol Allopurinol No 1{table QD Allopurino 300 MG 300 MG t} l 300 MG Carvedilol Carvedilol No 1{table BID Carvedilol 6.25 MG 6.25 MG t_with_ 6.25 MG food} Aspirin 81 Aspirin 81 No 1{table QD Aspirin 81 81 MG 81 MG t} 81 MG buPROPion buPROPion No buPROPion HCl ER (XL) HCl ER (XL) HCl ER 150 MG 150 MG (XL) 150 MG levofloxaci levofloxaci No levofloxac [facility] n 750 mg n 750 mg in 750 mg Me dical tablet tablet tablet levothyroxi levothyroxi No levothyrox [facility] ne 25 mcg ne 25 mcg ine 25 mcg Medical tablet tablet tablet Lumigan Lumigan No Lumigan [facility] 0.01 % eye 0.01 % eye 0.01 % eye Medical drops drops drops methocarbam methocarbam No 2 QID methocarba [facility] ol 500 mg ol 500 mg mol 500 mg Medical tablet Take tablet Take tablet 2 tablets 4 2 tablets 4 Take 2 times a day times a day tablets 4 by oral by oral times a route for 5 route for 5 day by days. days. oral route for 5 days. metoclopram metoclopram No metoclopra [facility] wanda 10 mg wanda 10 mg mide 10 mg Medical tablet tablet tablet metronidazo metronidazo No metronidaz [facility] le 500 mg le 500 mg ole 500 mg Medical tablet Take tablet Take tablet 1 tablet 1 tablet Take 1 every 8 every 8 tablet hours by hours by every 8 oral route oral route hours by for 1 day. for 1 day. oral route for 1 day. moxifloxaci moxifloxaci No moxifloxac [facility] n 0.5 % eye n 0.5 % eye in 0.5 % Medical drops drops eye drops neomycin neomycin No neomycin [facility] via 500 mg 500 mg 500 mg Medical tablet Take tablet Take tablet 1 tablet 3 1 tablet 3 Take 1 times a day times a day tablet 3 by oral by oral times a route for 1 route for 1 day by day. day. oral route for 1 day. omeprazole omeprazole No omeprazole [facility] 40 mg 40 mg 40 mg Medical capsule,del capsule,del capsule,de ayed ayed layed release release release ondansetron ondansetron No ondansetro [facility] HCl 4 mg HCl 4 mg n HCl 4 mg M edical tablet tablet tablet pantoprazol pantoprazol No pantoprazo [facility] e 40 mg e 40 mg le 40 mg Medic al tablet,any tablet,any tablet,del yed release yed release ayed release polymyxin B polymyxin B No polymyxin [facility] sulfate sulfate B sulfate Medi tito 10,000 10,000 10,000 unit-trimet unit-trimet unit-trime hoprim 1 hoprim 1 thoprim 1 mg/mL eye mg/mL eye mg/mL eye drops drops drops pravastatin pravastatin No pravastati [facility] 20 mg 20 mg n 20 mg Medical tablet tablet tablet prednisolon prednisolon No prednisolo [facility] e acetate 1 e acetate 1 ne acetate Medical % eye % eye 1 % eye drops,suspe drops,suspe drops,susp nsion nsion ension Suprep Suprep No 177mL Q1D Suprep [facility] Bowel Prep Bowel Prep Bowel Prep Medical Kit 17.5 Kit 17.5 Kit 17.5 gram-3.13 gram-3.13 gram-3.13 gram-1.6 gram-1.6 gram-1.6 gram oral gram oral gram oral solution solution solution Take 177 mL Take 177 mL Take 177 every day every day mL every by oral by oral day by route for 1 route for 1 oral route day. day. for 1 day. Sutab Sutab No Sutab [facility] 1.479-0.188 1.479-0.188 1.479-0.18 Medical -0.225 gram -0.225 gram 8-0.225 tablet tablet gram tablet tamsulosin tamsulosin No tamsulosin [facility] 0.4 mg 0.4 mg 0.4 mg Medical capsule capsule capsule tramadol 50 tramadol 50 No tramadol [facility] mg tablet mg tablet 50 mg Medi tito tablet zolpidem 10 zolpidem 10 No zolpidem [facility] mg tablet mg tablet 10 mg Medi tito tablet allopurinol allopurinol No allopurino [facility] 300 mg 300 mg l 300 mg Medical tablet tablet tablet amlodipine amlodipine No amlodipine [facility] 5 mg tablet 5 mg tablet 5 mg M edical tablet amoxicillin amoxicillin No amoxicilli [facility] 500 mg 500 mg n 500 mg Medical capsule capsule capsule bupropion bupropion No bupropion [facility] HCl XL 150 HCl XL 150 HCl XL 150 Medical mg 24 hr mg 24 hr mg 24 hr tablet, tablet, tablet, extended extended extended release release release carvedilol carvedilol No carvedilol [facility] 6.25 mg 6.25 mg 6.25 mg Medica l tablet tablet tablet cephalexin cephalexin No cephalexin [facility] 500 mg 500 mg 500 mg Medical capsule capsule capsule ciprofloxac ciprofloxac No ciprofloxa [facility] in 500 mg in 500 mg janna 500 mg Medical tablet Take tablet Take tablet 1 tablet 1 tablet Take 1 every 12 every 12 tablet hours by hours by every 12 oral route oral route hours by for 7 days. for 7 days. oral route for 7 days. famotidine famotidine No famotidine [facility] 20 mg 20 mg 20 mg Medical tablet tablet tablet gabapentin gabapentin No gabapentin [facility] 400 mg 400 mg 400 mg Medical capsule capsule capsule hydrocodone hydrocodone No hydrocodon [facility] 5 5 e 5 Medical mg-acetamin mg-acetamin mg-acetami ophen 325 ophen 325 nophen 325 mg tablet mg tablet mg tablet Take 1 Take 1 Take 1 tablet tablet tablet every 6 every 6 every 6 hours by hours by hours by oral route oral route oral route for 5 days. for 5 days. for 5 days. ketorolac ketorolac No 1 Q6H ketorolac [facility] 10 mg 10 mg 10 mg Medical tablet Take tablet Take tablet 1 tablet 1 tablet Take 1 every 6 every 6 tablet hours by hours by every 6 oral route oral route hours by for 5 days. for 5 days. oral route for 5 days. levofloxaci levofloxaci No levofloxac [facility] n 500 mg n 500 mg in 500 mg Me dical tablet tablet tablet levofloxaci levofloxaci No levofloxac [facility] n 750 mg n 750 mg in 750 mg Me dical tablet tablet tablet levothyroxi levothyroxi No levothyrox [facility] ne 25 mcg ne 25 mcg ine 25 mcg Medical tablet tablet tablet [facility] Lumigan No Lumigan [facility] 0.01 % eye 0.01 % eye 0.01 % eye Medical drops drops drops methocarbam methocarbam No 2 QID methocarba [facility] ol 500 mg ol 500 mg mol 500 mg Medical tablet Take tablet Take tablet 2 tablets 4 2 tablets 4 Take 2 times a day times a day tablets 4 by oral by oral times a route for 5 route for 5 day by days. days. oral route for 5 days. metoclopram metoclopram No metoclopra [facility] wanda 10 mg wanda 10 mg mide 10 mg Medical tablet tablet tablet metronidazo metronidazo No metronidaz [facility] le 500 mg le 500 mg ole 500 mg Medical tablet Take tablet Take tablet 1 tablet 1 tablet Take 1 every 8 every 8 tablet hours by hours by every 8 oral route oral route hours by for 1 day. for 1 day. oral route for 1 day. moxifloxaci moxifloxaci No moxifloxac [facility] n 0.5 % eye n 0.5 % eye in 0.5 % Medical drops drops eye drops neomycin neomycin No neomycin Sugey via 500 mg 500 mg 500 mg Medical tablet Take tablet Take tablet 1 tablet 3 1 tablet 3 Take 1 times a day times a day tablet 3 by oral by oral times a route for 1 route for 1 day by day. day. oral route for 1 day. omeprazole omeprazole No omeprazole [facility] 40 mg 40 mg 40 mg Medical capsule,del capsule,del capsule,de ayed ayed layed release release release ondansetron ondansetron No ondansetro [facility] HCl 4 mg HCl 4 mg n HCl 4 mg M edical tablet tablet tablet pantoprazol pantoprazol No pantoprazo [facility] e 40 mg e 40 mg le 40 mg Medic al tablet,any tablet,any tablet,del yed release yed release ayed release polymyxin B polymyxin B No polymyxin [facility] sulfate sulfate B sulfate Medi tito 10,000 10,000 10,000 unit-trimet unit-trimet unit-trime hoprim 1 hoprim 1 thoprim 1 mg/mL eye mg/mL eye mg/mL eye drops drops drops pravastatin pravastatin No pravastati [facility] 20 mg 20 mg n 20 mg Medical tablet tablet tablet prednisolon prednisolon No prednisolo [facility] e acetate 1 e acetate 1 ne acetate Medical % eye % eye 1 % eye drops,suspe drops,suspe drops,susp nsion nsion ension Suprep Suprep No 177mL Q1D Suprep [facility] Bowel Prep Bowel Prep Bowel Prep Medical Kit 17.5 Kit 17.5 Kit 17.5 gram-3.13 gram-3.13 gram-3.13 gram-1.6 gram-1.6 gram-1.6 gram oral gram oral gram oral solution solution solution Take 177 mL Take 177 mL Take 177 every day every day mL every by oral by oral day by route for 1 route for 1 oral route day. day. for 1 day. Sutab Sutab No Sutab [facility] 1.479-0.188 1.479-0.188 1.479-0.18 Medical -0.225 gram -0.225 gram 8-0.225 tablet tablet gram tablet tamsulosin tamsulosin No tamsulosin [facility] 0.4 mg 0.4 mg 0.4 mg Medical capsule capsule capsule tramadol 50 tramadol 50 No tramadol [facility] mg tablet mg tablet 50 mg Medi tito tablet zolpidem 10 zolpidem 10 No zolpidem [facility] mg tablet mg tablet 10 mg Medi tito tablet allopurinol allopurinol No allopurino [facility] 300 mg 300 mg l 300 mg Medical tablet tablet tablet amlodipine amlodipine No amlodipine [facility] 5 mg tablet 5 mg tablet 5 mg M edical tablet amoxicillin amoxicillin No amoxicilli [facility] 500 mg 500 mg n 500 mg Medical capsule capsule capsule bupropion bupropion No bupropion [facility] HCl XL 150 HCl XL 150 HCl XL 150 Medical mg 24 hr mg 24 hr mg 24 hr tablet, tablet, tablet, extended extended extended release release release carvedilol carvedilol No carvedilol [facility] 6.25 mg 6.25 mg 6.25 mg Medica l tablet tablet tablet cephalexin cephalexin No cephalexin [facility] 500 mg 500 mg 500 mg Medical capsule capsule capsule ciprofloxac ciprofloxac No ciprofloxa [facility] in 500 mg in 500 mg janna 500 mg Medical tablet tablet tablet famotidine famotidine No famotidine [facility] 20 mg 20 mg 20 mg Medical tablet tablet tablet gabapentin gabapentin No gabapentin [facility] 400 mg 400 mg 400 mg Medical capsule capsule capsule hydrocodone hydrocodone No hydrocodon [facility] 5 5 e 5 Medical mg-acetamin mg-acetamin mg-acetami ophen 325 ophen 325 nophen 325 mg tablet mg tablet mg tablet levofloxaci levofloxaci No levofloxac [facility] n 500 mg n 500 mg in 500 mg Me dical tablet tablet tablet levofloxaci levofloxaci No levofloxac [facility] n 750 mg n 750 mg in 750 mg Me dical tablet tablet tablet levothyroxi levothyroxi No levothyrox [facility] ne 25 mcg ne 25 mcg ine 25 mcg Medical tablet tablet tablet [facility] Lumigan No Lumigan [facility] 0.01 % eye 0.01 % eye 0.01 % eye Medical drops drops drops metoclopram metoclopram No metoclopra [facility] wanda 10 mg wanda 10 mg mide 10 mg Medical tablet tablet tablet metronidazo metronidazo No metronidaz [facility] le 500 mg le 500 mg ole 500 mg Medical tablet tablet tablet moxifloxaci moxifloxaci No moxifloxac [facility] n 0.5 % eye n 0.5 % eye in 0.5 % Medical drops drops eye drops omeprazole omeprazole No omeprazole [facility] 40 mg 40 mg 40 mg Medical capsule,del capsule,del capsule,de ayed ayed layed release release release ondansetron ondansetron No ondansetro [facility] HCl 4 mg HCl 4 mg n HCl 4 mg M edical tablet tablet tablet pantoprazol pantoprazol No pantoprazo [facility] e 40 mg e 40 mg le 40 mg Medic al tablet,any tablet,any tablet,del yed release yed release ayed release polymyxin B polymyxin B No polymyxin [facility] sulfate sulfate B sulfate Medi tito 10,000 10,000 10,000 unit-trimet unit-trimet unit-trime hoprim 1 hoprim 1 thoprim 1 mg/mL eye mg/mL eye mg/mL eye drops drops drops pravastatin pravastatin No pravastati [facility] 20 mg 20 mg n 20 mg Medical tablet tablet tablet prednisolon prednisolon No prednisolo [facility] e acetate 1 e acetate 1 ne acetate Medical % eye % eye 1 % eye drops,suspe drops,suspe drops,susp nsion nsion ension Sutab Sutab No Sutab [facility] 1.479-0.188 1.479-0.188 1.479-0.18 Medical -0.225 gram -0.225 gram 8-0.225 tablet tablet gram tablet tamsulosin tamsulosin No tamsulosin [facility] 0.4 mg 0.4 mg 0.4 mg Medical capsule capsule capsule tramadol 50 tramadol 50 No tramadol [facility] mg tablet mg tablet 50 mg Medi tito tablet zolpidem 10 zolpidem 10 No zolpidem [facility] mg tablet mg tablet 10 mg Medi tito tablet allopurinol allopurinol No allopurino Meena 300 mg 300 mg l 300 mg Medical tablet tablet tablet Group amlodipine amlodipine No amlodipine Menea 5 mg tablet 5 mg tablet 5 mg M edical tablet Group amoxicillin amoxicillin No amoxicilli [facility] 500 mg 500 mg n 500 mg Medical capsule capsule capsule Group bupropion bupropion No bupropion [facility] HCl XL 150 HCl XL 150 HCl XL 150 Medical mg 24 hr mg 24 hr mg 24 hr Jannet up tablet, tablet, tablet, extended extended extended release release release carvedilol carvedilol No carvedilol [facility] 6.25 mg 6.25 mg 6.25 mg Medica l tablet tablet tablet Group cephalexin cephalexin No cephalexin [facility] 500 mg 500 mg 500 mg Medical capsule capsule capsule Group ciprofloxac ciprofloxac No ciprofloxa [facility] in 500 mg in 500 mg janna 500 mg Medical tablet tablet tablet Group famotidine famotidine No famotidine [facility] 20 mg 20 mg 20 mg Medical tablet tablet tablet Group gabapentin gabapentin No gabapentin [facility] 400 mg 400 mg 400 mg Medical capsule capsule capsule Group hydrocodone hydrocodone No hydrocodon Meena 5 5 e 5 Medical mg-acetamin mg-acetamin mg-acetami Group ophen 325 ophen 325 nophen 325 mg tablet mg tablet mg tablet levofloxaci levofloxaci No levofloxac [facility] n 500 mg n 500 mg in 500 mg Me dical tablet tablet tablet Group levofloxaci levofloxaci No levofloxac [facility] n 750 mg n 750 mg in 750 mg Me dical tablet tablet tablet Group levothyroxi levothyroxi No levothyrox [facility] ne 25 mcg ne 25 mcg ine 25 mcg Medical tablet tablet tablet Group [facility] Lumigan No [facility] Stewar d 0.01 % eye 0.01 % eye 0.01 % eye Medical drops drops drops Group metoclopram metoclopram No metoclopra [facility] wanda 10 mg wanda 10 mg mide 10 mg Medical tablet tablet tablet Group metronidazo metronidazo No metronidaz [facility] le 500 mg le 500 mg ole 500 mg Medical tablet tablet tablet Group moxifloxaci moxifloxaci No moxifloxac Meena n 0.5 % eye n 0.5 % eye in 0.5 % Medical drops drops eye drops Group omeprazole omeprazole No omeprazole [facility] 40 mg 40 mg 40 mg Medical capsule,del capsule,del capsule,de Group ayed ayed layed release release release ondansetron ondansetron No ondansetro [facility] HCl 4 mg HCl 4 mg n HCl 4 mg M edical tablet tablet tablet Group pantoprazol pantoprazol No pantoprazo [facility] e 40 mg e 40 mg le 40 mg Medic al tablet,any tablet,any tablet,del Group yed release yed release ayed release polymyxin B polymyxin B No polymyxin [facility] sulfate sulfate B sulfate Medi tito 10,000 10,000 10,000 Group unit-trimet unit-trimet unit-trime hopri 1 [facility] 1 thoprim 1 mg/mL eye mg/mL eye mg/mL eye drops drops drops pravastatin pravastatin No pravastati Meena 20 mg 20 mg n 20 mg Medical tablet tablet tablet Group prednisolon prednisolon No prednisolo [facility] e acetate 1 e acetate 1 ne acetate Medical % eye % eye 1 % eye Group drops,suspe drops,suspe drops,susp nsion nsion ension Sutab Sutab No Sutab [facility] 1.479-0.188 1.479-0.188 1.479-0.18 Medical -0.225 gram -0.225 gram 8-0.225 Group tablet tablet gram tablet tamsulosin tamsulosin No tamsulosin [facility] 0.4 mg 0.4 mg 0.4 mg Medical capsule capsule capsule Group tramadol 50 tramadol 50 No tramadol [facility] mg tablet mg tablet 50 mg Medi tito tablet Group zolpidem 10 zolpidem 10 No zolpidem Meena mg tablet mg tablet 10 mg Medi tito tablet Group Immunizations Ordered Filled Immunization Date Status Comments [facility] e Immunization Name Name pneumococcal 2018-01-26 [facility] 13-valent [facility] 13:58:00 pneumococcal 2018-01-26 Completed [facility] Her carson 13-valent vaccine 13:58:00 pneumococcal 2018-01-26 Completed [facility] Her carson 13-valent vaccine 13:58:00 pneumococcal 2018-01-26 Completed [facility] Her carson 13-valent vaccine 13:58:00 pneumococcal 2018-01-26 Completed [facility] Her carson 13-valent vaccine 13:58:00 Td 2011-03-14 Completed [facility]00 [facility] Td 2011-03-14 Completed [facility] 00:00:00 [facility] Td 2011-03-14 Completed [facility] 00:00:00 [facility] Td 2011-03-14 Completed [facility] 00:00:00 [facility] Td 2011-03-14 Completed [facility] 00:00:00 [facility] Td 2011-03-14 Completed [facility] 00:00:00 [facility] Td 2011-03-14 Completed [facility] 00:00:00 [facility] Td 2011-03-14 Completed [facility] 00:00:00 [facility] Td 2011-03-14 Completed [facility] 00:00:00 [facility] TD, NOS 2011-03-14 Completed [facility] 00:00:00 [facility] TD, NOS 2011-03-14 Completed [facility] 00:00:00 [facility] TD, NOS 2011-03-14 Completed [facility] 00:00:00 [facility] TD, NOS 2011-03-14 Completed [facility] 00:00:00 [facility] TD, NOS 2011-03-14 Completed [facility] 00:00:00 [facility] Td 2011-03-14 Completed [facility] 00:00:00 [facility] Vital Signs Vital Name Observation Time Observation Value Comments Source height 2022-08-19 09:40:00 62.5 [in_i] [facility] weight 2022-08-19 09:40:00 209.5 [lb_av] [facility] temperature 2022-08-19 09:40:00 97.4 [degF] [facility] bmi 2022-08-19 09:40:00 37.7 kg/m2 [facility] oximetry 2022-08-19 09:40:00 97 % [facility] respiratory rate 2022-08-19 09:40:00 17 /min Comm on [facility] blood pressure 2022-08-19 09:40:00 138 mm[Hg] [facility] systolic [facility] blood pressure 2022-08-19 09:40:00 64 mm[Hg] [facility] - diastolic [facility] Systolic blood 2022-08-17 20:00:00 129 mm[Hg] Univer sity of pressure [facility] Diastolic blood 2022-08-17 20:00:00 65 mm[Hg] Unive rsity of pressure [facility] Heart rate 2022-08-17 20:00:00 90 /min Universi ty [facility] Respiratory rate 2022-08-17 20:00:00 20 /min Univ ersity [facility] Oxygen saturation 2022-08-17 20:00:00 95 /min Uni versity of in Arterial blood [facility] by Pulse oximetry Branch Body temperature 2022-08-17 17:26:38 37 Mary Univ ersity [facility] Body height 2022-08-17 16:31:00 162.6 cm Universi ty of [facility] Body weight 2022-08-17 16:31:00 97.523 kg Universi ty of [facility] BMI 2022-08-17 16:31:00 36.90 kg/m2 Universi ty of [facility] Systolic blood 2022-08-09 23:43:00 117 mm[Hg] Univer sity of pressure [facility] Diastolic blood 2022-08-09 23:43:00 61 mm[Hg] Unive rsity of pressure [facility] Heart rate 2022-08-09 23:43:00 78 /min Universi ty of [facility] Respiratory rate 2022-08-09 23:43:00 18 /[facility] 2022-08-09 23:43:00 95 /min Uni versity of in Arterial blood [facility] by Pulse oximetry [place] Body temperature 2022-08-09 21:32:00 37.61 [facility] Body height 2022-08-09 21:32:00 162.6 cm Universi ty of [facility] Body weight 2022-08-09 21:32:00 97.07 kg Universi ty of [facility] BMI 2022-08-09 21:32:00 [facility] height 2022-06-27 15:50:00 62.5 [in_i] [facility] weight 2022-06-27 15:50:00 212.4 [lb_av] Common [facility] temperature 2022-06-27 15:50:00 97.3 [degF] [facility] bmi 2022-06-27 15:50:00 38.23 kg/m2 [facility] oximetry 2022-06-27 15:50:00 96 % [facility] respiratory rate 2022-06-27 15:50:00 17 /min Comm on [facility] blood pressure 2022-06-27 15:50:00 141 mm[Hg] Common [facility] blood pressure 2022-06-27 15:50:00 72 mm[Hg] Common [facility] - diastolic [facility] BP Diastolic 2022-06-15 00:00:00 80 mm[Hg] [facility] BP Systolic 2022-06-15 00:00:00 114 mm[Hg] [facility] Body Weight 2022-06-15 00:00:00 215 [lb_av] [facility] height 2022-03-30 14:30:00 62.5 [in_i] [facility] weight 2022-03-30 14:30:00 210 [lb_av] [facility] temperature 2022-03-30 14:30:00 97.6 [degF] [facility] bmi 2022-03-30 14:30:00 37.79 kg/m2 [facility] oximetry 2022-03-30 14:30:00 98 % [facility] respiratory rate 2022-03-30 14:30:00 16 /min Comm on [facility] blood pressure 2022-03-30 14:30:00 139 mm[Hg] Common [facility] - systolic [facility] blood pressure 2022-03-30 14:30:00 65 mm[Hg] Common [facility] - diastolic [facility] BP Diastolic 2022-01-24 00:00:00 78 mm[Hg] [facility] BP Systolic 2022-01-24 00:00:00 124 mm[Hg] [facility] Body Weight 2022-01-24 00:00:00 216 [lb_av] [facility] height 2021-12-29 14:30:00 62 [in_i] [facility] weight 2021-12-29 14:30:00 217.4 [lb_av] [facility] temperature 2021-12-29 14:30:00 97.9 [degF] [facility] bmi 2021-12-29 14:30:00 39.76 kg/m2 [facility] oximetry 2021-12-29 14:30:00 96 % [facility] respiratory rate 2021-12-29 14:30:00 17 /min Comm on [facility] blood pressure 2021-12-29 14:30:00 139 mm[Hg] Common [facility] - systolic [facility] blood pressure 2021-12-29 14:30:00 71 mm[Hg] Common [facility] - diastolic [facility] height 2021-12-29 14:40:00 62 [in_i] [facility] weight 2021-12-29 14:40:00 217.4 [lb_av] [facility] temperature 2021-12-29 14:40:00 97.9 [degF] [facility] bmi 2021-12-29 14:40:00 39.76 kg/m2 [facility] oximetry 2021-12-29 14:40:00 96 % [facility] respiratory rate 2021-12-29 14:40:00 17 /min Comm on [facility] blood pressure 2021-12-29 14:40:00 139 mm[Hg] Common [facility] systolic [facility] blood pressure 2021-12-29 14:40:00 71 mm[Hg] [facility] diastolic [facility] height 2021-11-23 15:30:00 62 [in_i] [facility] weight 2021-11-23 15:30:00 216.3 [lb_av] [facility] temperature 2021-11-23 15:30:00 98.0 [degF] [facility] bmi 2021-11-23 15:30:00 39.56 kg/m2 [facility] oximetry 2021-11-23 15:30:00 97 % [facility] respiratory rate 2021-11-23 15:30:00 17 /min Comm on [facility] blood pressure 2021-11-23 15:30:00 137 mm[Hg] Common [facility] - systolic [facility] blood pressure 2021-11-23 15:30:00 75 mm[Hg] Common [facility] - diastolic [facility] Systolic blood 2021-11-19 16:54:00 134 mm[Hg] Univer [facility]ity of [facility] Diastolic blood 2021-11-19 16:54:00 61 mm[Hg] Unive rsity of [facility] Body temperature 2021-11-19 16:54:00 36.5 [facility] 2021-11-19 16:54:00 14 /min [facility] Heart rate 2021-11-19 10:18:00 88 /min [facility] Oxygen saturation 2021-11-19 10:18:00 98 /min Uni versity of in Arterial blood [facility] by Pulse oximetry Branch Body height 2021-11-19 00:00:00 160 cm [facility] Body weight 2021-11-19 00:00:00 102.513 kg bed weight [facility] BMI 2021-11-19 00:00:00 40.03 kg/m2 [facility] height 2021-09-27 10:00:00 62 [in_i] [facility] weight 2021-09-27 10:00:00 218.5 [lb_av] Common [facility] temperature 2021-09-27 10:00:00 97.6 [degF] Common [facility] bmi 2021-09-27 10:00:00 39.96 kg/m2 [facility] oximetry 2021-09-27 10:00:00 95 % [facility] respiratory rate 2021-09-27 10:00:00 16 /min Comm on [facility] blood pressure 2021-09-27 10:00:00 137 mm[Hg] Common [facility] - systolic [facility] blood pressure 2021-09-27 10:00:00 72 mm[Hg] [facility] height 2021-06-29 08:20:00 62 [in_i] [facility] weight 2021-06-29 08:20:00 215 [lb_av] [facility] temperature 2021-06-29 08:20:00 98 [degF] [facility] bmi 2021-06-29 08:20:00 39.32 kg/m2 [facility] blood pressure 2021-06-29 08:20:00 126 mm[Hg] [facility] - systolic [facility] blood pressure 2021-06-29 08:20:00 84 mm[Hg] [facility] - diastolic [facility] height 2021-04-06 13:00:00 62 [in_i] [facility] weight 2021-04-06 13:00:00 215 [lb_av] [facility] temperature 2021-04-06 13:00:00 97.8 [degF] [facility] bmi 2021-04-06 13:00:00 39.32 kg/m2 [facility] blood pressure 2021-04-06 13:00:00 125 mm[Hg] [facility] systolic [facility] blood pressure 2021-04-06 13:00:00 70 mm[Hg] [facility] - diastolic [facility] Systolic blood 2021-03-08 17:28:00 111 mm[Hg] Univer [facility]ity of [facility] Diastolic blood 2021-03-08 17:28:00 57 mm[Hg] Unive rsity of [facility] Heart rate 2021-03-08 17:28:00 87 /min Universi [facility] Body temperature 2021-03-08 17:28:00 36.33 Mary Univ ersity [facility] Respiratory rate 2021-03-08 17:28:00 18 /min [facility] O[facility] saturation 2021-03-08 17:28:00 96 /min Uni versity of in Arterial blood [place] [facility] by Pulse oximetry [facility] Body height 2021-03-07 01:18:00 157.5 cm [facility] Body weight 2021-03-06 22:21:00 95.255 kg [...] ers[facility] Oxygen saturation 2021-02-07 18:00:00 96 /min Uni versity of in Arterial blood [place] [facility] by Pulse oximetry [facility] Body temperature 2021-02-07 16:03:00 [...] ers[facility] Oxygen saturation 2020-05-27 16:25:00 96 /min Uni versity of in Arterial blood [place] [facility] by Pulse oximetry [facility] Body weight 2020-05-27 08:53:00 100.064 kg [facility] BMI 2020-05-27 08:53:00 39.08 kg/m2 [facility] Body height 2020-05-26 20:30:00 160 cm [facility] Systolic blood 2020-05-27 16:25:00 118 mm[Hg] Univer sity of pressure [facility] Diastolic blood 2020-05-27 16:25:00 71 mm[Hg] Unive rsity of pressure [facility] Heart rate 2020-05-27 16:25:00 80 /min Universi [facility] Body temperature 2020-05-27 16:25:00 36.06 Mary Univ ersity [facility] Respiratory rate 2020-05-27 16:25:00 20 /min [facility] Oxygen saturation 2020-05-27 16:25:00 96 /min Uni versity of in Arterial blood [facility] by Pulse oximetry [place] Body weight 2020-05-27 08:53:00 100.064 kg [facility] BMI 2020-05-27 08:53:00 39.08 kg/m2 [facility] Body height 2020-05-26 20:30:00 160 cm [facility] Systolic blood 2021-01-20 18:07:00 116 mm[Hg] [facility] pressure Diastolic blood 2021-01-20 18:07:00 73 mm[Hg] [facility] pressure Heart rate 2021-01-20 17:19:00 85 /min [facility] Respiratory rate 2021-01-20 17:19:00 18 /min [facility] Body temperature 2021-01-20 16:19:00 36.5 Mary [facility] Oxygen saturation 2021-01-20 16:19:00 97 /min [facility] in Arterial blood by Pulse oximetry Body height 2021-01-20 13:49:00 160 cm [facility] Body weight 2021-01-20 13:49:00 100.245 kg [facility] BMI 2021-01-20 13:49:00 39.15 kg/m2 [facility] BMI Calculated 2018-06-14 19:30:00 Armand Foster Weight 2018-06-14 19:30:00 [facility] Height 2018-06-14 19:30:00 160.02 cm Sachi Verdugo Systolic (mm Hg) 2018-06-14 19:30:00 Avinash Verdugo Diastolic (mm Hg) 2018-06-14 19:30:00 [facility] Heart Rate 2018-06-14 19:30:00 [facility] Heart Rate 2018-06-12 20:34:00 [facility] Systolic (mm Hg) 2018-06-12 20:34:00 Avinash rial [place] Diastolic (mm Hg) 2018-06-12 20:34:00 Mem [facility] Height 2018-06-12 20:34:00 160.02 cm [facility] BMI Calculated 2018-06-12 20:34:00 [facility] [place] Weight 2018-06-12 20:34:00 [facility] Respitory Rate 2018-01-26 13:40:00 [facility] [place] Respitory Rate 2018-01-26 13:20:00 [facility] [place] Heart Rate 2018-01-26 13:20:00 [facility] [place] Temperature Oral 2018-01-26 13:20:00 98.6 F Avinash rial Kartik (F) Systolic (mm Hg) 2018-01-26 13:20:00 Avinash rial Kartik Diastolic (mm Hg) 2018-01-26 13:20:00 Mem orial [place] Heart Rate 2018-01-26 10:52:00 [facility] Respitory Rate 2018-01-26 10:52:00 Memori al [place] Systolic (mm Hg) 2018-01-26 10:52:00 Avinash rial Kartik Diastolic (mm Hg) 2018-01-26 10:52:00 Mem orial [place] Heart Rate 2018-01-26 05:57:00 [facility] [place] Systolic (mm Hg) 2018-01-26 05:57:00 Avinash rial Kartik Diastolic (mm Hg) 2018-01-26 05:57:00 Mem orial [place] Temperature Oral 2018-01-26 05:57:00 98.0 F Avinash rial Kartik (F) Temperature Oral 2018-01-25 21:18:00 98.0 F Avinash rial [place] (F) Height 2018-01-25 17:03:00 160.02 cm [facility] [place] Weight 2018-01-25 17:03:00 [facility] BMI Calculated 2018-01-25 17:03:00 Memori al [facility]artik Height 2018-01-15 15:47:00 160.02 cm [facility] [place] BMI Calculated 2018-01-15 15:47:00 Armand Foster Weight 2018-01-15 15:47:00 [facility] Procedures Procedure Date / Time Performing Source Performed Clinician EYE CULTURE 2022-09-06 Rosario Hilton 18:00:00 Hospital FUNGUS CULTURE 2022-09-06 Rosario Hilton 18:00:00 Hospital EYE CULTURE, ANAEROBIC 2022-09-06 Rosario Hilton 18:00:[address] CHEST PULMONARY ANGIOGRAM 2022-08-17 Shara Neville Un iversity of 17:33:00 [facility] LIPASE 2022-08-17 Shara Neville Mathews of 17:06:00 [facility] TROPONIN I 2022-08-17 Shara Neville [facility] 17:06:00 [facility] COMP. METABOLIC PANEL ([id number]) 2022-08-17 Shara Neville U niversity of 17:06:00 [facility] CBC WITH DIFF 2022-08-17 Shara Neville [facility] 17:06:00 [facility] RAPID INFLUENZA A/B 2022-08-17 Shara Neville [facility] 17:06:00 [facility] N-TERMINAL PRO-BNP 2022-08-17 Shara Neville [facility] o f 17:06:00 [facility] COVID-19 (ID NOW RAPID TESTING) 2022-08-17 Shara Neville Mathews of 17:06:00 [facility] CONSENT/REFUSAL FOR DIAGNOSIS AND 2022-08-17 [facility] 16:30:42 Unassigned, No [facility] XR CHEST 2 VW 2022-08-09 [facility] of 22:20:00 F [facility] LIPASE 2022-08-09 [facility] of 21:56:00 F [facility] TROPONIN I 2022-08-09 [facility] of 21:56:00 F [facility] COMP. METABOLIC PANEL ([id number]) 2022-08-09 [facility] of 21:56:00 F [facility] CBC WITH DIFF 2022-08-09 [facility] of 21:56:00 F [facility] RAPID INFLUENZA A/B 2022-08-09 [facility] of 21:56:00 F [facility] N-TERMINAL PRO-BNP 2022-08-09 Kelby Wilburn Mathews of 21:56:00 F [facility] COVID-19 (ID NOW RAPID TESTING) 2022-08-09 Ayad Wilburn [facility] of 21:56:00 F [facility] CONSENT/REFUSAL FOR DIAGNOSIS AND 2022-08-09 [facility] of TREATMENT 21:27:11 Unassigned, No [facility] CT ABDOMEN PELVIS W CONTRAST 2022-08-03 Giovana Booth niversity of 20:14:37 [facility] ASSIGNMENT OF BENEFITS 2022-08-03 Doctor [facility] y of 18:14:09 Unassigned, No [facility] electrocardiogram 2022-06-15 [facility] 00:00:00 Group electrocardiogram 2022-01-24 [facility] 00:00:00 Group TROPONIN I 2021-11-19 Kayden Ramos Mathews of 14:10:00 [facility] MAGNESIUM 2021-11-19 [facility] of 11:50:00 [facility] TROPONIN I 2021-11-19 [facility] 11:50:00 [facility] BASIC METABOLIC PANEL (NA, K, CL, 2021-11-19 [facility] of CO2, GLUCOSE, BUN, CREATININE, CA) 11:50:00 [facility] LIPID PANEL ([id number])(TOTAL 2021-11-19 [facility] sit of CHOLESTEROL, TRIGLYCERIDES, HDL) 11:50:00 [facility] CBC WITH DIFF 2021-11-19 [facility] of 08:38:00 [facility] LACTIC ACID WHOLE BLOOD 2021-11-19 Kayden Ramos [facility] ty of 08:38:00 [facility] BLOOD CULTURE SCREEN 2021-11-19 Kayden Ramos Mathews of 08:36:00 [facility] PHOSPHORUS 2021-11-19 Kayden Ramos Mathews of 08:34:00 [facility] COMP. METABOLIC PANEL ([id number]) 2021-11-19 Kayden Ramos iversity of 08:34:00 [facility] N-TERMINAL PRO-BNP 2021-11-19 Kayden Ramos Mathews of 08:34:00 [facility] BLOOD CULTURE SCREEN 2021-11-19 [facility] of 08:33:00 [facility] PROTHROMBIN TIME / INR 2021-11-19 [facility] 08:32:00 [facility] PROCALCITONIN 2021-11-19 [facility] of 08:32:00 [facility] TROPONIN I 2021-11-19 Charlee Longo Mathews of 06:19:[address] [facility] [address] ABDOMEN PELVIS W CONTRAST 2021-11-18 Néstor Cherry [facility] versity of 21:07:44 [facility] HB ECG ROUTINE & RHYTHM STRIP 2021-11-18 Néstor Cherry Un iversity of 20:02:02 [facility] LIPASE 2021-11-18 Néstor Cherry Mathews of 19:57:00 [facility] MAGNESIUM 2021-11-18 Néstor Cherry [facility]ws of 19:57:00 [facility] TROPONIN I 2021-11-18 Néstor Cherry [facility]ws of 19:57:00 [facility] THYROID STIMULATING HORMONE 2021-11-18 Charlee Longo [facility] ersity of 19:57:00 [facility] COMP. METABOLIC PANEL ([id number]) 2021-11-18 Néstor Cherry Un iversity of 19:57:00 [facility] CBC WITH DIFF 2021-11-18 Néstor Cherry [facility]ws of 19:57:00 [facility] GLYCOSYLATED HEMOGLOBIN (A1C) 2021-11-18 Charlee Longo Un iversity of 19:57:00 [facility] URINALYSIS 2021-11-18 Néstor Cherry [facility] of 19:57:00 [facility] NOTICE OF PRIVACY PRACTICES 2021-11-18 Doctor [facility] ersity of 19:21:06 Unassigned, No [facility] CONSENT/REFUSAL FOR DIAGNOSIS AND 2021-11-18 [facility] of TREATMENT 19:15:58 Unassigned, No [facility] TRANSTHORACIC ECHO (TTE) COMPLETE 2021-03-08 Maria Antonia Gray of W/ CONTRAST 17:13:54 [facility] BASIC METABOLIC PANEL (NA, K, CL, 2021-03-08 [facility], [place] [address], GLUCOSE, BUN, CREATININE, CA) 08:34:00 [facility] CBC WITH DIFF 2021-03-08 [facility], [facility] of 08:34:00 [facility] MAGNESIUM 2021-03-07 [facility], [facility] of 09:39:00 [facility] TROPONIN I 2021-03-07 [facility] of 09:39:00 [facility] BASIC METABOLIC PANEL (NA, K, CL, 2021-03-07 [facility], [place] [address], GLUCOSE, BUN, CREATININE, CA) 09:39:00 [facility] CBC WITH DIFF 2021-03-07 [facility] of 09:36:00 [facility] THYROID STIMULATING HORMONE 2021-03-07 [facility], [facility] ersity of 01:37:00 [facility] PROTHROMBIN TIME / INR 2021-03-07 [facility] 01:37:00 [facility] D-DIMER 2021-03-07 [facility] of 01:37:00 [facility] ACTIVATED PARTIAL THRMPLAS CASEY 2021-03-07 [facility] of 01:37:00 [facility] URINALYSIS 2021-03-06 Néstor Cherry Mathews of 23:43:00 [facility] XR CHEST 1 VW 2021-03-06 Néstor Cherry Mathews of 22:42:10 [facility] LIPASE 2021-03-06 Néstor Cherry of 22:28:00 [facility] MAGNESIUM 2021-03-06 Néstor Cherry [facility]ws of 22:28:00 [facility] TROPONIN I 2021-03-06 Néstor Cherry Mathews of 22:28:00 [facility] COMP. METABOLIC PANEL ([id number]) 2021-03-06 Néstor Cherry iversity of 22:28:00 [facility] CBC WITH DIFF 2021-03-06 Néstor Cherry of 22:28:00 [facility] N-TERMINAL PRO-BNP 2021-03-06 Néstor Cherry of 22:28:00 [facility] COVID-19 (ID NOW RAPID TESTING) 2021-03-06 Néstor Cherry Mathews of 22:28:00 [facility] LAB ONLY COVID INTERPRETATION 2021-03-06 Néstor Cherry Un iversity of 22:28:00 [facility] HB ECG ROUTINE & RHYTHM STRIP 2021-03-06 Néstor Cherry Un iversity of 22:18:[address] [facility] [address] ABDOMEN PELVIS W CONTRAST 2021-02-07 Eulogio Melgar Un iversity of 17:19:56 [facility] COMP. METABOLIC PANEL ([id number]) 2021-02-07 Eulogio Melgar U niversity of 16:15:00 [facility] CBC WITH DIFF 2021-02-07 Eulogio Melgar [facility] 16:15:00 [facility] URINALYSIS 2021-02-07 Eulogio Melgar [facility] 16:15:00 [facility] FUNGUS CULTURE 2021-01-20 Mary Carmen [place] 15:57:00 Hospital FUNGUS SMEAR 2021-01-20 [facility] 15:57:00 Hospital KERATOPLASTY, ENDOTHELIAL, 2021-01-20 [facility] AUTOMATED STRIPPING, [facility] 15:18:00 Hospital (DSAEK) HEMOGLOBIN A1C 2021-01-15 Ventura Albarado 14:25:00 [facility] ECG PRE/POST OP 2021-01-15 Ventura Albarado 14:19:19 [facility] EXTERNAL PROVIDER RECORDS 2020-07-28 [facility] of 06:01:00 Unassigned, No [facility] HOME HEALTH - OTHER 2020-07-16 Doctor Mathews o f 06:01:00 Unassigned, No [facility] ECHO ROUTINE W/DOPPLER COLOR 2020-05-27 Annabelle Ramos [facility] versity of 13:18:17 [facility] CAROTID DUPLEX BILATERAL BY 2020-05-27 Annabelle Ramos ersity of VASCULAR LAB 12:42:09 [facility] FERRITIN SERUM 2020-05-27 Christina Cordova Mathews of 09:25:00 [facility] TROPONIN I 2020-05-27 Annabelle Ramos Mathews of 09:25:00 [facility] TROPONIN I 2020-05-27 RichardHalina [facility] of 05:24:00 [facility] BASIC METABOLIC PANEL (NA, K, CL, 2020-05-27 Rebecca Ramos Mathews of CO2, GLUCOSE, BUN, CREATININE, CA) 05:23:00 [facility] CBC WITH DIFF 2020-05-27 [facility] of 05:23:00 [facility] URINALYSIS 2020-05-27 Richard, [facility] of 03:04:00 [facility] TROPONIN I 2020-05-26 Richard, [facility] of 23:21:00 [facility] XR CHEST 1 VW 2020-05-26 Keyana Bridges Mathews of 18:40:50 [facility] PHOSPHORUS 2020-05-26 Richard [facility] of 18:02:00 [facility] LIPASE 2020-05-26 [facility] of 18:02:00 [facility] MAGNESIUM 2020-05-26 Halina RamosFormerly [facility] 18:02:00 [facility] TROPONIN I 2020-05-26 Keyana Bridges Mathews of 18:02:00 [facility] THYROID STIMULATING HORMONE 2020-05-26 Annabelle Ramos [facility] ersity of 18:02:00 [facility] HEPATIC FUNCTION PANEL (21096) 2020-05-26 Keyana Bridges niversity of (ALB,T.PRO,BILI 18:02:00 [facility],BU/BC,ALT,AST,ALK PHOS) [place] BASIC METABOLIC PANEL (NA, K, CL, 2020-05-26 Tracy Bridges [facility] CO2, GLUCOSE, BUN, CREATININE, CA) 18:02:00 [facility] LIPID PANEL ([id number])(TOTAL 2020-05-26 Annabelle Ramos [facility] sity of CHOLESTEROL, TRIGLYCERIDES, HDL) 18:02:00 [facility] CBC WITH DIFF 2020-05-26 Keyana Bridges Mathews of 18:02:00 [facility] GLYCOSYLATED HEMOGLOBIN (A1C) 2020-05-26 Annabelle Ramos iversity of 18:02:00 [facility] PROTHROMBIN TIME / INR 2020-05-26 Keyana Bridges [facility] y of 18:02:00 [facility] D-DIMER 2020-05-26 Christina Cordova Mathews of 18:02:00 [facility] ACTIVATED PARTIAL THRMPLAS CASEY 2020-05-26 Keyana Bridges U niversity of 18:02:00 [facility] COVID-19 (ID NOW RAPID TESTING) 2020-05-26 Keyana Bridges University of 18:02:00 [facility] HB ECG ROUTINE & RHYTHM STRIP 2020-05-26 Keyana Bridges Un iversity of 17:55:52 [facility] Complex uroflowmetry (eg, 2018-06-12 Armand [facility] calibrated electronic equipment) 20:59:00 Measurement of post-voiding 2018-06-12 Avinash rial [place] residual urine and/or bladder 20:59:00 capacity by ultrasound, non-imaging Cholecystectomy [facility] Colonoscopy [facility] Esophagogastroduodenoscopy Memor ial [place] Hysterectomy [facility] Operation [facility] Plan of Care Planned Activity Planned Date Details Comments Source Future Scheduled Test 2023-04-30 [facility] Influenza [employer] 00:00:00 Seasonal (>/= 19 yrs) [code = IMM Influenza Seasonal (>/= 19 yrs)] Future Scheduled Test 2022-11-04 Hepatitis C screening [facility] 18:31:38 (procedure) [code = 229099151] Future Scheduled Test 2022-11-04 BREAST CANCER [facility] 18:31:38 SCREENING [code = BREAST CANCER SCREENING] Future Scheduled Test 2022-11-04 COLONOSCOPY SCREENING [facility] 18:31:38 [code = COLONOSCOPY SCREENING] Future Scheduled Test 2022-11-04 SHINGLES VACCINES (1 [facility] 18:31:38 of 2) [code = SHINGLES VACCINES (1 of 2)] Future Scheduled Test 2022-11-04 65+ PNEUMOCOCCAL [facility] 18:31:38 VACCINE (2 - PPSV23 if available, else PCV20) [code = 65+ PNEUMOCOCCAL VACCINE (2 - PPSV23 if available, else PCV20)] Future Scheduled Test 2022-11-04 COVID-19 VACCINE (4 - [facility] 18:31:38 Booster for Pfizer series) [code = COVID-19 VACCINE (4 - Booster for Pfizer series)] Future Scheduled Test 2022-11-04 INFLUENZA VACCINE [facility] 18:31:38 [code = INFLUENZA VACCINE] Future Scheduled Test 2021-04-30 [facility] Influenza [employer] 00:00:00 Seasonal Apr to September (>/= 19 yrs) [code = IMM Influenza Seasonal Apr to September (>/= 19 yrs)] Future Scheduled Test 2015 Imm Pneumococcal 65+ [facility] 00:00:00 (1 - PCV) [code = Imm Pneumococcal 65+ (1 - PCV)] Future Scheduled Test 2015 IMM Pneumococcal Age [facility] 00:00:00 65 and Up [code = IMM Pneumococcal Age 65 and Up] Future Scheduled Test 2000 Screening for [facility] 00:00:00 malignant neoplasm of colon (procedure) [code = 971233004] Future Scheduled Test [facility] 00:00:00 malignant neoplasm of colon (procedure) [code = 974856827] Future Scheduled Test 1990 Breast Cancer Scrn [facility] 00:00:00 (Yearly) [code = Breast Cancer Scrn (Yearly)] Future Scheduled Test 1990 Breast Cancer Scrn [facility] 00:00:00 (Yearly) [code = Breast Cancer Scrn (Yearly)] Future Scheduled Test 1962 COVID-19 Vaccine (1) [facility] 00:00:00 [code = COVID-19 Vaccine (1)] Future Scheduled Test 1950 COVID-19 Vaccine (#1) [facility] 00:00:00 [code = COVID-19 Vaccine (#1)] Future Scheduled Test COVID-19 VACCINE (1) [facility] [code = COVID-19 VACCINE (1)] Future Scheduled Test Hepatitis C screening [facility] (procedure) [code = 813216308] Future Scheduled Test [facility] S[facility] [code = BREAST CANCER SCREENING] Future Scheduled Test COLONOSCOPY SCREENING [facility] [code = COLONOSCOPY SCREENING] Future Scheduled Test SHINGLES VACCINES [facility] (#1) [code = SHINGLES VACCINES (#1)] Future Scheduled Test 65+ PNEUMOCOCCAL [facility] VACCINE (1 of 1 - PPSV23) [code = 65+ PNEUMOCOCCAL VACCINE (1 of 1 - PPSV23)] Future Scheduled Test INFLUENZA VACCINE [facility] [code = INFLUENZA VACCINE] Future Appointment 2023-03-07 Carlos Eduardo Mcleod, [address] P [facility] 00:00:00 [place] [facility]; [address], [place] [address] Instructions [facility] Start End Encounter Admission Attending Care Care Encounter Source Date/Time Date/Time Type Type Clinicians Facility Department ID 2022-11-01 Outpatient Hernandez, STLMLC STLMLC [id number] Common 10:08:01 [facility] [address] [facility] 2022-10-28 Outpatient Hernandez, STLMLC STLMLC [id number] Common 08:24:01 [facility] [address] [facility] 2022-08-[address] [facility] [id number] [place] 17:24:55 [id number] [facility] 2022-07-[address] [facility] [id number] [place] 13:38:49 [id number] [facility] 2022-07-[address] [facility] [id number] [place] 12:50:57 [id number] [facility] 2022-07-[address] [facility] [id number] [place] 16:35:23 [id number] [facility] 2022-07-07 Outpatient Hernandez, STLMLC STLC [id number] Common 16:29:01 [facility] [address] [facility] 2022-07-[address] [facility] [id number] [place] 12:06:11 [id number] [facility] 2022-06-24 Outpatient Hernandez, STLMLC STLMLC [id number] Common 10:26:00 [facility] 2022-04-07 Outpatient Hernandez, STLMLC STLMLC [id number] Common 09:25:01 [facility] [address] [facility] 2022-03-30 Outpatient Hernandez, STLMLC STLMLC [id number] Common 14:50:02 [facility] 2021-12-30 Outpatient Hernandez, STLMLC STLMLC [id number] Common 09:36:01 [facility] 2021-10-01 Outpatient Hernandez, STLMLC STLMLC [id number] Common 10:57:02 [facility] 2021-09-27 Outpatient Hernandez, STLMLC STLMLC [id number] Common 09:37:02 [facility] 2021-08-25 Outpatient Hernandez, STLMLC STLMLC [id number] Common 14:31:04 Bo [facility] 2021-08-25 Outpatient Hernandez, STLMLC STLMLC [id number] Common 14:21:22 Bo [facility] 2021-08-25 Outpatient Hernandez, STLMLC STLMLC [id number] Common 13:47:15 [place] [address] [facility] 2021-08-25 Outpatient Hernandez, STLMLC STLMLC [id number] Common 13:42:22 [place] [address] [facility] 2021-08-25 Outpatient Hernandez, STLMLC STLMLC [id number] Common 13:29:34 [place] [address] [facility] 2021-08-25 Outpatient Hernandez, STLMLC STLMLC [id number] Common 13:28:15 [place] [address] [facility] 2021-08-25 Outpatient Hernandez, STLMLC STLMLC [id number] Common 13:11:27 [place] [address] [facility] 2021-08-25 Outpatient Hernandez, STLMLC STLMLC [id number] Common 12:39:30 [place] [address] [facility] 2021-08-25 Outpatient Hernandez, STLMLC STLMLC [id number] Common 12:39:02 [place] [address] [facility] 2021-08-25 Outpatient Hernandez, STLMLC STLMLC [id number] Common 12:38:04 [place] [address] [facility] 2021-08-25 Outpatient Hernandez, STLMLC STLMLC [id number] Common 12:36:42 [place] [address] [facility] 2021-08-25 Outpatient Hernandez, STLMLC STLMLC [id number] Common 12:20:30 [place] [address] [facility] 2021-08-25 Outpatient Hernandez, STLMLC STLMLC [id number] Common 12:17:22 [place] [id number] [facility] 2021-08-25 Outpatient Hernandez, STLMLC [facility] [id number] Common 12:12:58 Bo [address] [facility] 2021-08-25 Outpatient Hernandez, STLMLC [facility] [id number] Common 12:03:47 [place] [address] [facility] 2021-08-25 Outpatient Hernandez, STLC [facility] [id number] Common 12:02:57 [place] [address] [facility] 2021-08-25 Outpatient Hernandez, STLC [facility] [id number] Common 11:44:51 [place] [address] [facility] 2021-08-25 Outpatient Hernandez, STLC [facility] [id number] Common 11:43:49 Bo [id number] [facility] 2021-08-25 Outpatient Hernandez, [facility] [id number] Common 11:42:50 [place] [address] [facility] 2021-08-25 Outpatient Hernandez, [facility] [id number] Common 11:41:35 [place] [id number] [facility] 2021-08-25 Outpatient Hernandez, [facility] [id number] Common 11:31:08 [place] [id number] [facility] 2022-10-27 2022-10-27 Emergency X BRIDGES, [facility] [id number] Univers 12:44:00 14:48:00 KEYANA kauffman [facility] 2022-09-06 2022-09-06 Lab Yobani, [id number] [facility] 16:55:00 17:00:[id number] 3.430.2.7 Hospit [id number] l .8 2022-09-06 2022-09-06 Outpatient MAGIMED, [facility] [id number] [address] [place] 00:00:00 00:00:[address] 2022-08-19 2022-08-19 OFFICE STLMLC STLMLC [id number] Co mmon 00:00:00 00:00:00 VISIT EST Spir it PT LEVEL 3 - [facility] 2022-08-17 2022-08-17 Emergency X KELIN [facility] ERT [id number] Univers 10:29:00 14:19:00 SHARA ity [facility] 2022-08-17 2022-08-17 [facility] [id number] Univers 10:29:00 14:19:00 Shara Nava KARELY [id number] ity [address] [facility] [id number] [facility] [id number] [address] 2022-08-17 2022-08-17 (TEL) STLC STLMLC [id number] Co mmon 00:00:00 00:00:00 [facility] 2022-08-09 2022-08-09 [facility] [id number] Univers 15:34:00 18:10:00 FOLUSHO ity [facility] 2022-08-09 2022-08-09 Emergency [facility] [id number] Univers 15:34:00 18:10:00 Ayado Eulalia STEPHENTON [id number] ity [facility] [id number] [facility] [id number] [address] 2022-08-05 2022-08-05 (TEL) STLC STLC [id number] Co mmon 00:00:00 00:00:00 [facility] 2022-08-03 2022-08-03 [id number] Univers 12:22:13 23:59:00 GIOVANA ity [facility] 2022-08-03 2022-08-03 [facility] [id number] Univers 12:22:13 23:59:00 Encounter Giovana [place] [id number] ity of 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 [id number] 08:45:00 08:45:00 Health 2022-08-03 2022-08-03 Orders Doctor OSIEL 1.2.840.114 [id number] Univers 00:00:00 00:00:00 Only Unassigned, STEPHANIE 350.1.13.10 ity of [place] [facility] 4.2.7.2.686 Victor Manuel [id number] [facility] [address] 2022-08-03 2022-08-03 (TEL) STLMLC STLMLC [id number] Co mmon 00:00:00 00:00:[address] [facility] 2022-07-08 2022-07-08 (TEL) STLMLC STLMLC [id number] Co mmon 00:00:00 00:00:00 Spirit - [facility] 2022-06-27 2022-06-27 OFFICE STLMLC STLMLC [id number] Co mmon 00:00:00 00:00:00 VISIT [facility] PT - CHI LEVEL 4 [facility] 2022-06-15 2022-06-15 Outpatient TRU_[facility]IA [facility] [id number] [facility] 00:00:00 00:00:00 Francia__ [id number] John [facility] 2022-06-15 2022-06-15 Emiliano [facility] [id number] Meena 00:00:00 00:00:00 Jim Cuello MD: [id number] AR/ROSALIND/PURA sloan [facility] Abimael [facility], Cardio [address]IB [address] [place] [address] , Ph. 2022-05-24 2022-05-24 Outpatient GC_BCSS_How PRIV PRIV [id number] [facility] 00:00:00 00:00:00 Tessa [id number] Medic al 2022-05-18 2022-05-18 (TEL) STLMLC STLMLC [id number] Co mmon 00:00:00 00:00:00 [facility] 2022-05-18 2022-05-18 (TEL) STLMLC STLMLC [id number] Co mmon 00:00:00 00:00:00 [facility] 2022-05-17 2022-05-17 (TEL) STLMLC STLMLC [id number] Co mmon 00:00:00 00:00:00 [facility] 2022-04-20 2022-04-20 Outpatient GC_BCSS_How PRIV PRIV [id number] [facility] 00:00:00 00:00:00 Tessa [id number] Medic al 2022-04-20 2022-04-20 Carlos Eduardo Casper [facility] 00:00:00 00:00:00 Harsha [facility] Leonard perez MD: [id number] GC_BCSS_Pea [facility], Office [address], [place] [address] , Ph. 2022-04-19 2022-04-19 Outpatient GC_BCSS_How PRIV PRIV 242 [id number] [facility] 00:00:00 00:00:00 Tessa [id number] Medic al 2022-03-30 2022-03-30 OFFICE STLMLC STLMLC [id number] Co mmon 00:00:00 00:00:00 VISIT [facility] LEVEL 4 [facility] 2022-03-23 2022-03-23 Outpatient GC_BCSS_How PRIV PRIV 242 [id number] [facility] 00:00:00 00:00:00 Tessa [id number] Medic al 2022-03-23 2022-03-23 Outpatient MARILYN Mcleod PRIV [id number] 00:00:00 00:00:00 Carlos Eduardo Casper [id number] 2022-03-23 2022-03-23 Carlos Eduardo Casper PRIV [facility] - [facility] [id number] [facility] 00:00:00 00:00:00 Harsha [facility] - Leonard perez MD: [id number] GC_BCSS_Pea [facility], Office [address], [place] [address] , Ph. 2022-03-17 2022-03-17 Outpatient GC_BCSS_How PRIV PRIV 242 [id number] [facility] 00:00:00 00:00:00 [email or web address]_Dan1 [id number] Medic al 2022-03-07 2022-03-10 Inpatient Elective Harsha [facility] [id number] [facility] 14:45:00 12:35:00 Carlos Eduardo AMBRIZ) Service 38 2022-03-10 2022-03-10 Outpatient GC_BCSS_How PRIV PRIV 242 [id number] [facility] 00:00:00 00:00:00 ell_Dan1 [id number] Medic al 2022-03-07 2022-03-07 Inpatient [facility] [id number] [facility] 14:45:00 14:45:00 38 2022-03-01 2022-03-01 Outpatient Elective Harsha [facility] [id number] [facility] 09:19:00 09:20:00 Carlos Eduardo AMBRIZ) 40 2022-03-01 2022-03-01 Outpatient [facility] [id number] [facility] 09:19:00 09:19:00 40 2022-02-07 2022-02-07 Outpatient GC_BCSS_How PRIV PRIV 242 [id number] [facility] 05:03:00 05:03:00 ell_Dan1 [id number] Medic al 2022-01-24 2022-01-24 Outpatient TRU_GLORIA [facility] SMG [id number] Meena 11:15:00 11:15:00 DUSTIN_ [id number] Medica l Group 2022-01-24 2022-01-24 Outpatient PRATEEK Cuello SMG [id number] 00:00:00 00:00:00 Emiliano [id number] 2022-01-24 2022-01-24 Emiliano [facility] [place] - [facility] [id number] [facility] 00:00:00 00:00:00 Jim Cuello MD: [id number] AR/LA/PURA [place] [facility]_Ainsley Abimael jack Saad Castillo, Cardio [address] [place] [address] , Ph. 2022-01-20 2022-01-20 Outpatient [facility] [id number] [facility] 03:39:00 03:39:00 E__ [id number] Leonarda l Group 2022-01-19 2022-01-19 Outpatient GC_BCSS_How PRIV PRIV [id number] [facility] 03:53:00 03:53:00 ell_Dan1 [id number] Medic al 2022-01-19 2022-01-19 Carlos Eduardo Casper PRIV [facility] 00:00:00 00:00:00 Angie Mcleod MD: [id number] GC_BCSS_Pea [facility], Office [address], [place] [address] , Ph. 2022-01-19 2022-01-19 Outpatient Harsha MARILYN PRIV [id number] 00:00:00 00:00:00 Carlos Eduardo Casper [id number] 2022-01-17 2022-01-17 (TEL) STLC STLC [id number] Co mmon 00:00:00 00:00:00 [facility] 2022-01-13 2022-01-13 Outpatient GC_BCSS_How PRIV PRIV 242 [id number] [facility] 12:59:00 12:59:00 ell_Dan1 [id number] Medic al 2022-01-10 2022-01-10 Outpatient GC_BCSS_How PRIV PRIV 242 [id number] [facility] 11:18:00 11:18:00 ell_Dan1 [id number] Medic al 2022-01-05 2022-01-05 (TEL) STLMLC STLMLC [id number] Co mmon 00:00:00 00:00:00 Spirit - [facility] 2022-01-03 2022-01-03 (TEL) STLMLC STLMLC [id number] Co mmon 00:00:00 00:00:00 Spirit - [facility] 2021-12-29 2021-12-29 OFFICE STLMLC STLMLC [id number] Co mmon 00:00:00 00:00:00 VISIT Spirit ESTAB PT - CHI LEVEL 4 [facility] 2021-12-29 2021-12-29 SUB ANNUAL STLMLC STLMLC [id number] Common 00:00:00 00:00:00 MCR Spirit WELLNESS - CHI VISIT [facility] 2021-11-26 2021-11-26 (TEL) STLMLC STLMLC [id number] Co mmon 00:00:00 00:00:00 Spirit - [facility] 2021-11-23 2021-11-23 (HOSP F/U) STLMLC STLMLC [id number] Common 00:00:00 00:00:00 [facility] Follow Up - [facility] 2021-11-22 2021-11-22 Transition MillanDAVID olmsteadJack 1.2.840.114 [id number] Univers 00:00:00 00:00:00 of Care Blanka ACEVEDOY 350.1.13.10 it y of [place] 4.2.7.2.686 [facility] [phone] [facility] [address] 2021-11-18 2021-11-19 Outpatient X MADI KSLAILA ZULEMA [id number] Univers 14:33:00 13:30:00 CHARLEE ity [facility] 2021-11-18 2021-11-19 Emergency Jo Ann, Néstor Meg [facility] 1.2.840. 114 [id number] Univers 14:33:00 13:30:00 Charlee Longo 350.1.13.10 ity [facility] 4.2.7.2.686 [facility] [phone] [facility] [address] 2021-11-19 2021-11-19 (TEL) STLMLC STLMLC [id number] Co mmon 00:00:00 00:00:00 [facility] 2021-10-08 2021-10-08 Outpatient TIA Smytht, CLAUDIAPM RADI [id number] [facility] 09:14:00 09:14:00 Tomas Ediblerto [facility] 2021-09-27 2021-09-27 OFFICE STLMLC STLMLC [id number] Co mmon 00:00:00 00:00:00 VISIT [facility] [address] [facility] 2021-08-04 2021-08-04 (TEL) STLMLC STLMLC [id number] Co mmon 00:00:00 00:00:00 [facility] 2021-08-04 2021-08-04 (TEL) STLMLC STLMLC [id number] Co mmon 00:00:00 00:00:00 [facility] 2021-07-15 2021-07-15 Outpatient MARY CARMEN MARSHALL [facility] [id number] [place] 00:00:00 00:00:[address] 2021-06-29 2021-06-29 (TELEAUD) STLMLC STLMLC [id number] Common 00:00:00 00:00:00 AUDIO [facility] TELEMEDICI - [facility] 2021-06-28 2021-06-28 (TEL) STLMLC STLMLC [id number] Co mmon 00:00:00 00:00:00 [facility] 2021-04-06 2021-04-06 (TELEAUD) STLMLC STLMLC [id number] Common 00:00:00 00:00:00 AUDIO [facility] TELEMEDICI - [facility] 2021-04-02 2021-04-02 (TEL) STLMLC STLMLC [id number] Co mmon 00:00:00 00:00:00 [facility] 2021-03-24 2021-03-24 Outpatient STLMLC STLMLC [id number] Common 00:00:00 00:00:00 [facility] 2021-03-23 2021-03-23 Outpatient STLMLC STLMLC [id number] Common 00:00:00 00:00:00 [facility] 2021-03-09 2021-03-09 Transition Mauro Millan 1.2.840.114 [id number] Univers 00:00:00 00:00:00 of Raymond Lerma 350.1.13.10 it y of [place] [phone] [facility] [address] 2021-03-06 2021-03-08 Emergency Néstor Cherry [facility] 1.2.840. 114 [id number] Univers 17:19:00 15:15:00 Christina Cordova 350.1.13.10 ity of [place] [place] [phone] [place] [address] Branch 2021-03-06 2021-03-06 Emergency X Néstor CHERRY [facility] ERT [id number] Univers 17:19:00 17:19:00 ity of [facility] 2021-03-04 2021-03-04 Outpatient STLMLC STLMLC [id number] Common 00:00:00 00:00:00 [facility] 2021-03-03 2021-03-03 Outpatient STLMLC STLMLC [id number] Common 00:00:00 00:00:00 [facility] 2021-02-24 2021-02-24 Documentat Mary Carmen Marshall 1.2.840.1 [id number] Methodi 00:00:00 00:00:00 ion L. 94476.1.[address] 3.430.2.7 Hospit a .3.528284 l .8 2021-02-18 2021-02-18 Outpatient STLMLC STLMLC [id number] Common 00:00:00 00:00:00 [facility] 2021-02-07 2021-02-07 Emergency Ramón [facility] 1.2.840.114 [id number] Univers 11:04:00 13:56:00 Eulogio Miroslava Hanson 350.1.13.10 i ty of [place].[address] [place] [address] [phone] [place] [address] Branch 2021-02-07 2021-02-07 Emergency X RAMÓN, [facility] ERT [id number] Univers 11:04:00 11:04:00 EULOGIO itildefonso [facility] 2021-02-02 2021-02-02 Outpatient STLMLC STLMLC [id number] Common 00:00:00 00:00:00 [facility] 2021-01-20 2021-01-20 Hospital Mary Carmen Marshall 1.2.840.1 [id number] Methodi 06:38:00 13:07:00 Encounter L. 19709.1.[address] 3.430.2.7 Hospit a .3.999907 l .8 2021-01-20 2021-01-20 Surgery Mary Carmen Marshall 1.2.840.1 [id number] Methodi 10:30:00 11:40:[address] 3.430.2.7 Hospit a .3.551227 l .8 2021-01-20 2021-01-20 Anesthesia Lotus Winn 1.2.840.1 [id number] Methodi 10:18:00 11:19:00 Event Maryan Albarado 67888.1.[address] 3.430.2.7 Hospit a .3.177789 l .8 2021-01-20 2021-01-20 Travel 1.2.840.1 1.2.244.002 [id number] Methodi 00:00:00 00:00:[address] 3.430.2.7 0.2.7.3.698 Ho spita .3.329128 084.8 l .8 2021-01-15 2021-01-15 Pre-Admiss Mary Carmen Marshall 1.2.840.1 [id number] Methodi 08:31:48 09:31:48 [place] L. 88017.1.[address] Testing 3.430.2.7 Hospit a .3.796131 l .8 2021-01-15 2021-01-15 Travel 1.2.840.1 1.2.325.071 [id number] Methodi 00:00:00 00:00:[address] 3.430.2.7 0.2.7.3.698 Ho spita .3.699320 084.8 l .8 2021-01-05 2021-01-05 Outpatient STLMLC STLMLC [id number] Common 00:00:00 00:00:00 [facility] 2021-01-05 2021-01-05 Outpatient STLMLC STLMLC [id number] Common 00:00:00 00:00:00 [facility] 2020-12-22 2020-12-22 Travel 1.2.840.1 1.2.073.142 [id number] Methodi 00:00:00 00:00:[address] 3.430.2.7 0.2.7.3.698 Ho spita .3.999924 084.8 l .8 2020-12-09 2020-12-09 Travel 1.2.840.1 1.2.541.449 6455 [id number] Methodi 00:00:00 00:00:[address] 3.430.2.7 0.2.7.3.698 Ho spita .3.925930 084.8 l .8 2020-11-16 2020-11-16 Outpatient STLMLC STLMLC [id number] Common 00:00:00 00:00:00 [facility] 2020-10-30 2020-10-30 Outpatient STLMLC STLMLC [id number] Common 00:00:00 00:00:00 [facility] 2020-10-09 2020-10-09 Outpatient STLMLC STLMLC [id number] Common 00:00:00 00:00:00 [facility] 2020-09-30 2020-09-30 Outpatient STLMLC STLMLC [id number] Common 00:00:00 00:00:00 [facility] 2020-09-29 2020-09-29 Outpatient STLMLC STLMLC [id number] Common 00:00:00 00:00:00 [facility] 2020-09-23 2020-09-23 Outpatient STLMLC STLMLC [id number] Common 00:00:00 00:00:00 [facility] 2020-09-01 2020-09-01 Outpatient STLMLC STLMLC [id number] Common 00:00:00 00:00:00 [facility] 2020-08-31 2020-08-31 Outpatient STLMLC STLMLC [id number] Common 00:00:00 00:00:00 [facility] 2020-08-17 2020-08-17 Outpatient STLMLC STLMLC [id number] Common 00:00:00 00:00:00 [facility] 2020-08-12 2020-08-12 Outpatient STLMLC STLMLC [id number] Common 00:00:00 00:00:00 [facility] 2020-08-10 2020-08-10 Outpatient STLMLC STLMLC [id number] Common 00:00:00 00:00:00 [facility] 2020-08-06 2020-08-06 Outpatient STLMLC STLMLC [id number] Common 00:00:00 00:00:00 [facility] 2020-07-28 2020-07-28 Orders Doctor CARTAGENA 1.2.840.114 [id number] [facility] 00:00:00 00:00:00 Only Unassigned, STEPHANIE 350.1.13.10 ity of [place] [facility] 4.2.7.2.686 Victor Manuel as [phone] [address] 2020-07-28 2020-07-28 Orders Doctor CARTAGENA 1.2.840.114 [id number] 00:00:00 00:00:00 Only Unassigned, STEPHANIE 350.1.13.10 [place] [facility] 4.2.7.2.686 [id number] [facility] 2020-07-16 2020-07-16 Orders Doctor CARTAGENA 1.2.840.114 [id number] Univers 00:00:00 00:00:00 Only Unassigned, STEPHANIE 350.1.13.10 ity of [place] [facility] 4.2.7.2.686 Victor Manuel as [phone] [facility] [address] 2020-07-16 2020-07-16 Orders Doctor CARTAGENA 1.2.840.114 [id number] 00:00:00 00:00:00 Only Unassigned, STEPHANIE 350.1.13.10 [place] [facility] 4.2.7.2.686 [phone] 009 2020-07-10 2020-07-10 Outpatient STLMLC STLMLC [id number] Common 00:00:00 00:00:00 [facility] 2020-06-29 2020-06-29 Outpatient STLMLC STLMLC [id number] Common 00:00:00 00:00:00 [facility] 2020-06-08 2020-06-08 Outpatient STLMLC STLMLC [id number] Common 00:00:00 00:00:00 [facility] 2020-05-28 2020-05-28 Transition Mauro Pendleton 1.2.840.114 [id number] Univers 00:00:00 00:00:00 of Care Manuelito A Lerma 350.1.13.10 ity of [place] [phone] [facility] [address] 2020-05-28 2020-05-28 Transition Mauro Pendleton 1.2.840.114 [id number] 00:00:00 00:00:00 of Care Manuelito A Lerm[place] 350.1.13.10 [place] 4.2.7.2.686 [id number] [facility] 2020-05-26 2020-05-27 Emergency Keyana Bridges [facility] 1.2.840. 114 [id number] [facility] 12:52:00 14:03:00 Christina Cordova 350.1.13.10 ity of [place].[address] [phone] [facility] [address] 2020-05-26 2020-05-27 Emergency Kyeana Bridges [facility] 1.2.840. 114 [id number] 12:52:00 14:03:[address] 350.1.13.10 [place] [address] [phone] [facility] 2020-05-27 2020-05-27 Telephone [facility] 1.2.619.116 [id number] [facility] 00:00:00 00:00:[address] [facility] 4.2.7.2.686 [facility] Professio [phone] Ct dic[address] 2020-05-27 2020-05-27 Telephone [facility] 1.2.426.822 [id number] 00:00:00 00:00:00 Raji Hanson 350.1.13.10 [place] 4.2.7.2.686 Professio [id number] [address] 2020-05-26 2020-05-26 Outpatient [facility] [id number] [facility] 12:52:00 12:52:00 CHRISTINA kauffman [facility] 2020-04-07 2020-04-07 Outpatient [facility] [id number] Common 09:10:00 09:10:[address] [facility] 2020-03-30 2020-03-30 Outpatient [facility] [id number] Common 09:24:00 09:24:[address] [facility] 2020-03-24 2020-03-24 Outpatient [facility] [id number] Common 14:30:00 14:30:00 t [facility] 2020-03-24 2020-03-24 Outpatient STLMLC STLMLC [id number] Common 00:00:00 00:00:00 Spirit [facility] 2020-03-23 2020-03-23 Outpatient [facility] [id number] Common 10:32:00 10:32:[address] [facility] 2020-03-05 2020-03-05 Outpatient [facility] [id number] Common 15:11:00 15:11:[address] [facility] 2020-03-05 2020-03-05 Outpatient [facility] [id number] Common 14:06:00 14:06:[address] [facility] 2020-03-05 2020-03-05 Outpatient [facility] [id number] Common 11:21:00 11:21:[address] [facility] 2020-03-03 2020-03-03 Outpatient [facility] [id number] Common 13:30:00 13:30:[address] [facility] 2020-02-10 2020-02-10 Outpatient [facility] [id number] Common 13:30:00 13:30:[address] [facility] 2018-06-14 2018-06-15 Outpatient nullFlavo [facility] [id number] Memoria 20:00:00 05:59:59 r Urology 01 l Sean Jara [facility] 2018-06-14 2018-06-15 Outpatient nullFlavo [facility] [id number] Memoria 20:00:00 05:59:59 r Urology 01 l Sean Jara [facility] 2018-06-13 2018-06-15 Outside nullFlavo [facility] [id number] Memoria 18:01:00 05:59:59 Medical r Urology 00 l Records Sean Jara [facility] 2018-06-13 2018-06-15 Outside nullFlavo [facility] [id number] Memoria 18:01:00 05:59:59 Medical r Urology 00 l Records Sean Jara [facility] 2018-06-14 2018-06-14 Outpatient Nora [facility] [id number] 14:00:00 23:59:59 [facility] Sandrine 2018-06-13 2018-06-14 Outpatient [facility] [id number] 12:01:00 23:59:59 00 2018-06-14 2018-06-14 Outpatient MHIE LAYLAIE [id number] Memoria 14:00:00 14:00:00 01 l [place] 2018-06-12 2018-06-13 [place] [id number] Memoria 20:30:00 05:59:59 r Urology 00 l Sean Jara [facility] 2018-06-12 2018-06-13 [place] [id number] Memoria 20:30:00 05:59:59 r Urology 00 l [facility] Estefani [facility] 2018-06-12 2018-06-12 Outpatient [facility] [id number] 14:30:00 23:59:59 00 2018-06-12 2018-06-12 Outpatient DIPTI RESENDEZ [id number] Memoria 14:30:00 14:30:00 00 l [place] 2018-01-24 2018-01-26 Inpatient nullFlavo [facility] [id number] Memoria 13:05:00 18:05:00 r Kartik 00 l [facility] 2018-01-24 2018-01-26 Inpatient nullFlavo [facility] [id number] Memoria 13:05:00 18:05:00 r [place] 00 l [facility] 2018-01-24 2018-01-26 Outpatient FRANCES Melendez [facility] [id number] 08:05:00 13:05:00 Keny Sandrine 00 Results Test Description Test Time Test Comments Results Result Comments Source Fungus culture 2022-10-05 00:16:00 Test Item Value Reference Range Interpretation Comme nts Fungus culture isolate No growth after 4 weeks of Specimen InformationSpecimen (test code = 580-1) incubation. Source: CorneaSpecimen Site[facility] [id number] 13:25:00 Test Item Value Reference Range Interpretation Comments Eye culture No anaerobes Specimen isolate, isolated after InformationSp ecimen anaerobic (test 7 days. Source: [place] eaSpecimen code = 1370) Site: Left [facility] [id number] 22:32:26 Test Item Value Reference Interpretation Comments Range TROPONIN I (test 0.002 ng/mL See_Comment [Automated code = 6236183934) message] The system which generated this result [...] biotin. Lab Interpretation Normal (test code = 60080-6) [id number] 22:29:08 Test Item Value Reference Range Interpretation Comments NT-proBNP (test code 325 pg/mL See_Comment H [Autom ated = 4193114433) message] The system which generated this result transmitted reference range : <=125. The reference range was not used to interpret this result as normal/abnormal . GI (test code = GI) Biotin has been reported to cause a negative bias, interpret results relative to patient's use of biotin. Lab Interpretation Abnormal (test code = 11382-9) [facility] METABOLIC PANEL (21723)2022-08-09 22:20:44 Test Item Value Reference Range Interpretation Comments NA (test code = 137 mmol/L 135-145 3112647042) K (test code = 3.8 mmol/L 3.5-5.0 2308764356) CL (test code = 104 mmol/L 98-108 3423830547) CO2 TOTAL (test code = 25 mmol/L 23-31 5505386407) AGAP (test code = 2-16 4197174147) BUN (test code = 9 mg/dL 7-23 0989590986) GLUCOSE (test code = 110 mg/dL 70-110 5884351862) CREATININE (test code = 0.88 mg/dL 0.50-1.04 0789951158) TOTAL BILI (test code = 0.3 mg/dL 0.1-1.3 4099168290) CALCIUM (test code = 7.8 mg/dL 8.6-10.6 L 9895658508) T PROTEIN (test code = 6.6 g/dL 6.3-8.2 3687608013) ALBUMIN (test code = 3.8 g/dL 3.5-5.0 2244048341) ALK PHOS (test code = 88 U/L 34-122 2336147561) ALTv (test code = 14 U/L 5-35 1742-6) AST(SGOT) (test code = 21 U/L 13-40 0654308018) eGFR (test code = mL/min/1.73m2 0153201343) GI (test code = GI) Association of [...] tests). Lab Interpretation Abnormal (test code = 08151-1) [facility]-10 22:20:24 Test Item Value Reference Range Interpretation Comments LIPASE (test code = 3503328510) 94 U/L 0-220 Lab Interpretation (test code = Normal 51923-1) [facility] WITH [id number] 22:11:00 Test Item Value Reference Range Interpretation Comments [...] as normal/abnormal . HGB (test code = 10.7 g/dL 11.6-15.0 L 718-7) HCT (test code = 33.7 % 35.7-45.2 L 4544-3) MCV (test code = 87.3 fL 80.6-95.5 787-2) MCH (test code = 27.7 pg 25.9-32.8 785-6) MCHC (test code = 31.8 g/dL 31.6-35.1 786-4) RDW-SD (test code = 44.3 fL 39.0-49.9 87479-4) RDW-CV (test code = 13.9 % 12.0-15.5 788-0) PLT (test code = See_Comment [Automated 777-3) message] The sy stem which generated this result transmitted reference range : 166 - 358 10*3/ ?L. The reference r jj was not used to interpret this result as normal/abnormal . MPV (test code = 9.5 fL 9.5-12.9 48115-8) NRBC/100 WBC (test See_Comment [Automat ed code = [id number]) message] The system which generated this result transmitted reference range : 0.0 - 10.0 /100 WBCs. The refer ence range was not u sed to interpret th is result as normal/abnormal . NRBC x10^3 (test code See_Comment [Auto mated = [id number]) message] The s ystem which generated this result transmitted reference range : 10*3/?L. The reference range was not used to interpret this result as normal/abnormal . GRAN MAT (NEUT) % 61.2 % (test code = 770-8) IMM GRAN % (test code 0.40 % = [id number]) LYMPH % (test code = 21.7 % 736-9) MONO % (test code = 12.2 % 5905-5) EOS % (test code = 4.0 % 713-8) BASO % (test code = 0.5 % 706-2) GRAN MAT x10^3(ANC) 5.19 10*3/uL 1.88-7.09 (test code = [id number]) IMM GRAN x10^3 (test 0.03 10*3/uL 0.00-0.06 code = [id number]) LYMPH x10^3 (test code 1.84 10*3/uL 1.32-3.29 = 731-0) MONO x10^3 (test code 1.03 10*3/uL 0.33-0.92 H = 742-7) EOS x10^3 (test code = 0.34 10*3/uL 0.03-0.39 711-2) BASO x10^3 (test code 0.04 10*3/uL 0.01-0.07 = 704-7) Lab Interpretation Abnormal (test code = 74242-2) [facility] [id number] 06:55:00 Test Item Value Reference Range Interpretation Comments White Blood Count (test code = 12.2 x10 3/uL 4.4-10.5 H WBCT) Red Blood Count (test code = 3.65 x10 6/uL 3.75-5.20 L RBC) Hemoglobin (test code = HGBT) 10.4 g/dL 12.2-14.8 L Hematocrit (test code = HCTT) 32.7 % 36.5-44.4 L Mean Corpuscular Volume (test 89.60 fL 80.00-100.00 N code = MCV) Mean Corpuscular Hemoglobin 28.5 pg 27.0-32.5 N (test code = MCH) Mean Corpuscular HGB Conc 31.80 g/dL 32.00-37.50 L (test code = MCHC) RDW Coefficient of Variation 14.6 % 11.5-14.5 H (test code = RDWCV) Platelet Count (test code = 246.0 x10 3/uL 140.0-440.0 N PLTT) Mean Platelet Volume (test 10.0 fL code = MPV) Immature Granulocytes % (Auto) 0.4 % 0.0-5.0 N (test code = IMMGRAN%) Neutrophils % (Auto) (test 67.5 % 36.0-70.0 N code = NE%) Lymphocytes % (Auto) (test 19.3 % 12.0-44.0 N code = LY%) Monocytes % (Auto) (test code 10.0 % 0.0-11.0 N = MO%) Eosinophils % (Auto) (test 2.6 % 0.0-7.0 N code = EO%) Basophils % (Auto) (test code 0.2 % 0.0-2.0 N = BA%) Immature Granulocytes # (Auto) 0.05 x10 3/uL (test code = IMMGRAN#) Neutrophils # (Auto) (test 8.2 x10 3/uL 1.6-7.4 H code = NE#) Lymphocytes # (Auto) (test 2.35 x10 3/uL 0.50-4.60 N code = LY#) Monocytes # (Auto) (test code 1.22 x10 3/uL 0.00-1.20 H = MO#) Eosinophils # (Auto) (test 0.32 x10 3/uL 0.00-0.74 N code = EO#) Basophils # (Auto) (test code 0.03 x10 3/uL 0.00-0.21 N = BA#) nRBC Abs (test code = NRBCA) 0 nRBC Pct (test code = NRBCP) 0 % Basic Metabolic [id number] 06:55:00 Test Item Value Reference Range Interpretation Comments SODIUM (test code = NA) 141.0 mmol/L 136.0-145.0 N Potassium,K (test code = K) 4.5 mmol/L 3.0-5.1 N Chloride (test code = CL) 108 mmol/L 98-107 H Carbon Dioxide (test code = CO2) 28 mmol/L 20-31 N Anion Gap (test code = GAP) 5 mmol/L 5-15 N Blood Urea Nitrogen (test code = 13 mg/dL 9-23 N BUN) Creatinine (test code = CREATT) 0.73 mg/dL 0.55-1.02 N Creatinine Clr Calc Pharmacy 72.29 mL/min (test code = CRCLPHA) Estimated GFR ( Tammy > 60 mL/min/1.73m2 (test code = EGFRAA) Estimated GFR (Non Afr Tammy > 60 mL/min/1.73m2 (test code = EGFRNAA) BUN/Creatinine Ratio (test code 18 ratio 10-20 N = BCRATIO) Glucose (test code = GLU) 105 mg/dL 74-106 N Osmolality,Calculated (test code 291.6 = OSMOC) Calcium (test code = CA) 8.4 mg/dL 8.3-10.6 N Complete Blood Count Auto [id number] 06:40:00 Test Item Value Reference Range Interpretation Comments White Blood Count (test code = 12.8 x10 3/uL 4.4-10.5 H WBCT) Red Blood Count (test code = 3.65 x10 6/uL 3.75-5.20 L RBC) Hemoglobin (test code = HGBT) 10.3 g/dL 12.2-14.8 L Hematocrit (test code = HCTT) 32.8 % 36.5-44.4 L Mean Corpuscular Volume (test 89.90 fL 80.00-100.00 N code = MCV) Mean Corpuscular Hemoglobin 28.2 pg 27.0-32.5 N (test code = MCH) Mean Corpuscular HGB Conc 31.40 g/dL 32.00-37.50 L (test code = MCHC) RDW Coefficient of Variation 14.5 % 11.5-14.5 N (test code = RDWCV) Platelet Count (test code = 244.0 x10 3/uL 140.0-440.0 N PLTT) Mean Platelet Volume (test 9.8 fL code = MPV) Immature Granulocytes % (Auto) 0.5 % 0.0-5.0 N (test code = IMMGRAN%) Neutrophils % (Auto) (test 63.2 % 36.0-70.0 N code = NE%) Lymphocytes % (Auto) (test 25.6 % 12.0-44.0 N code = LY%) Monocytes % (Auto) (test code 10.1 % 0.0-11.0 N = MO%) Eosinophils % (Auto) (test 0.4 % 0.0-7.0 N code = EO%) Basophils % (Auto) (test code 0.2 % 0.0-2.0 N = BA%) Immature Granulocytes # (Auto) 0.07 x10 3/uL (test code = IMMGRAN#) Neutrophils # (Auto) (test 8.1 x10 3/uL 1.6-7.4 H code = NE#) Lymphocytes # (Auto) (test 3.28 x10 3/uL 0.50-4.60 N code = LY#) Monocytes # (Auto) (test code 1.29 x10 3/uL 0.00-1.20 H = MO#) Eosinophils # (Auto) (test 0.05 x10 3/uL 0.00-0.74 N code = EO#) Basophils # (Auto) (test code 0.02 x10 3/uL 0.00-0.21 N = BA#) nRBC Abs (test code = NRBCA) 0 nRBC Pct (test code = NRBCP) 0 % Basic Metabolic [id number] 06:40:00 Test Item Value Reference Range Interpretation Comments SODIUM (test code = NA) 142.0 mmol/L 136.0-145.0 N Potassium,K (test code = K) 4.7 mmol/L 3.0-5.1 N Chloride (test code = CL) 110 mmol/L 98-107 H Carbon Dioxide (test code = CO2) 28 mmol/L 20-31 N Anion Gap (test code = GAP) 4 mmol/L 5-15 L Blood Urea Nitrogen (test code = 23 mg/dL 9-23 N BUN) Creatinine (test code = CREATT) 0.88 mg/dL 0.55-1.02 N Creatinine Clr Calc Pharmacy 65.72 mL/min (test code = CRCLPHA) Estimated GFR ( Tammy > 60 mL/min/1.73m2 (test code = EGFRAA) Estimated GFR (Non Afr Tammy > 60 mL/min/1.73m2 (test code = EGFRNAA) BUN/Creatinine Ratio (test code 26 ratio 10-20 H = BCRATIO) Glucose (test code = GLU) 101 mg/dL 74-106 N Osmolality,Calculated (test code 297.2 = OSMOC) Calcium (test code = CA) 8.5 mg/dL 8.3-10.6 N Complete Blood Count Auto [id number] 06:10:00 Test Item Value Reference Range Interpretation Comments White Blood Count (test code = 15.7 x10 3/uL 4.4-10.5 H WBCT) Red Blood Count (test code = 3.98 x10 6/uL 3.75-5.20 N RBC) Hemoglobin (test code = HGBT) 11.4 g/dL 12.2-14.8 L Hematocrit (test code = HCTT) 34.8 % 36.5-44.4 L Mean Corpuscular Volume (test 87.40 fL 80.00-100.00 N code = MCV) Mean Corpuscular Hemoglobin 28.6 pg 27.0-32.5 N (test code = MCH) Mean Corpuscular HGB Conc 32.80 g/dL 32.00-37.50 N (test code = MCHC) RDW Coefficient of Variation 13.9 % 11.5-14.5 N (test code = RDWCV) Platelet Count (test code = 280.0 x10 3/uL 140.0-440.0 N PLTT) Mean Platelet Volume (test 10.0 fL code = MPV) Immature Granulocytes % (Auto) 0.6 % 0.0-5.0 N (test code = IMMGRAN%) Neutrophils % (Auto) (test 80.6 % 36.0-70.0 H code = NE%) Lymphocytes % (Auto) (test 9.8 % 12.0-44.0 L code = LY%) Monocytes % (Auto) (test code 8.9 % 0.0-11.0 N = MO%) Eosinophils % (Auto) (test 0.0 % 0.0-7.0 N code = EO%) Basophils % (Auto) (test code 0.1 % 0.0-2.0 N = BA%) Immature Granulocytes # (Auto) 0.09 x10 3/uL (test code = IMMGRAN#) Neutrophils # (Auto) (test 12.7 x10 3/uL 1.6-7.4 H code = NE#) Lymphocytes # (Auto) (test 1.53 x10 3/uL 0.50-4.60 N code = LY#) Monocytes # (Auto) (test code 1.39 x10 3/uL 0.00-1.20 H = MO#) Eosinophils # (Auto) (test 0.00 x10 3/uL 0.00-0.74 N code = EO#) Basophils # (Auto) (test code 0.01 x10 3/uL 0.00-0.21 N = BA#) nRBC Abs (test code = NRBCA) 0 nRBC Pct (test code = NRBCP) 0 % Basic Metabolic [id number] 06:10:00 Test Item Value Reference Range Interpretation Comments SODIUM (test code = NA) 137.0 mmol/L 136.0-145.0 N Potassium,K (test code = K) 4.5 mmol/L 3.0-5.1 N Chloride (test code = CL) 105 mmol/L 98-107 N Carbon Dioxide (test code = CO2) 24 mmol/L 20-31 N Anion Gap (test code = GAP) 8 mmol/L 5-15 N Blood Urea Nitrogen (test code = 22 mg/dL 9-23 N BUN) Creatinine (test code = CREATT) 0.98 mg/dL 0.55-1.02 N Creatinine Clr Calc Pharmacy 59.01 mL/min (test code = CRCLPHA) Estimated GFR ( Tammy > 60 mL/min/1.73m2 (test code = EGFRAA) Estimated GFR (Non Afr Tammy 58 mL/min/1.73m2 (test code = EGFRNAA) BUN/Creatinine Ratio (test code 22 ratio 10-20 H = BCRATIO) Glucose (test code = GLU) 177 mg/dL 74-106 H Osmolality,Calculated (test code 290.8 = OSMOC) Calcium (test code = CA) 8.2 mg/dL 8.3-10.6 L Basic Metabolic [id number] 10:40:00 Test Item Value Reference Range Interpretation Comments SODIUM (test code = NA) 135.0 mmol/L 136.0-145.0 L Potassium,K (test code = K) 4.4 mmol/L 3.0-5.1 N Chloride (test code = CL) 102 mmol/L 98-107 N Carbon Dioxide (test code = CO2) 28 mmol/L 20-31 N Anion Gap (test code = GAP) 5 mmol/L 5-15 N Blood Urea Nitrogen (test code = 14 mg/dL 9-23 N BUN) Creatinine (test code = CREATT) 0.76 mg/dL 0.55-1.02 N Creatinine Clr Calc Pharmacy 72.29 mL/min (test code = CRCLPHA) Estimated GFR ( Tammy > 60 mL/min/1.73m2 (test code = EGFRAA) Estimated GFR (Non Afr Tammy > 60 mL/min/1.73m2 (test code = EGFRNAA) BUN/Creatinine Ratio (test code 18 ratio 10-20 N = BCRATIO) Glucose (test code = GLU) 110 mg/dL 74-106 H Osmolality,Calculated (test code 281.0 = OSMOC) Calcium (test code = CA) 8.8 mg/dL 8.3-10.6 N Complete Blood Count Auto [id number] 10:40:00 Test Item Value Reference Range Interpretation Comments White Blood Count (test code = 10.7 x10 3/uL 4.4-10.5 H WBCT) Red Blood Count (test code = 4.67 x10 6/uL 3.75-5.20 N RBC) Hemoglobin (test code = HGBT) 13.1 g/dL 12.2-14.8 N Hematocrit (test code = HCTT) 41.4 % 36.5-44.4 N Mean Corpuscular Volume (test 88.70 fL 80.00-100.00 N code = MCV) Mean Corpuscular Hemoglobin 28.1 pg 27.0-32.5 N (test code = MCH) Mean Corpuscular HGB Conc 31.60 g/dL 32.00-37.50 L (test code = MCHC) RDW Coefficient of Variation 13.9 % 11.5-14.5 N (test code = RDWCV) Platelet Count (test code = 295.0 x10 3/uL 140.0-440.0 N PLTT) Mean Platelet Volume (test 9.6 fL code = MPV) Immature Granulocytes % (Auto) 0.5 % 0.0-5.0 N (test code = IMMGRAN%) Neutrophils % (Auto) (test 62.1 % 36.0-70.0 N code = NE%) Lymphocytes % (Auto) (test 27.6 % 12.0-44.0 N code = LY%) Monocytes % (Auto) (test code 7.4 % 0.0-11.0 N = MO%) Eosinophils % (Auto) (test 2.1 % 0.0-7.0 N code = EO%) Basophils % (Auto) (test code 0.3 % 0.0-2.0 N = BA%) Immature Granulocytes # (Auto) 0.05 x10 3/uL (test code = IMMGRAN#) Neutrophils # (Auto) (test 6.7 x10 3/uL 1.6-7.4 N code = NE#) Lymphocytes # (Auto) (test 2.95 x10 3/uL 0.50-4.60 N code = LY#) Monocytes # (Auto) (test code 0.79 x10 3/uL 0.00-1.20 N = MO#) Eosinophils # (Auto) (test 0.22 x10 3/uL 0.00-0.74 N code = EO#) Basophils # (Auto) (test code 0.03 x10 3/uL 0.00-0.21 N = BA#) nRBC Abs (test code = NRBCA) 0 nRBC Pct (test code = NRBCP) 0 % Coronavirus NAAT, [id number] 10:40:00 Test Item Value Reference Range Interpretation Comments Coronavirus NAAT, COVD19 Reference Range: (test code = Negative [id number]) Coronavirus NAAT, COVD19 ical-devices/emergenc (test code = i-wxa-rmlezslcghiwxr. [id number]) SARS-CoV-2 NAAT Result: Negative by RT-PCR (test code = SARS-CoV-2 NAAT Result:) Comment: Procedure: [id number] 16:44:07 Test Item Value Reference Range Interpretation Comments Procalcitonin (test 0.04 ng/mL <0.07 code = 8064371822) GI (test code = GI) INTERPRETATION OF PROCALCITONIN RESULTS IN ADULTS >= 18 YEARS OF AGE Initiation and discontinuation of antibiotics on patients with suspected or confirmed Lower Respiratory Tract Infection in Adults >= 18 years of age. + +-------- --------+ + -----+|Procalcitonin |Interpretation ?|Antibiotic ? ? |Considerations ? |ng/mL ? | ?|recommendation | ? + +-------- --------+ + -----+| <0.1 ? | Bacterial ? ? ?| Strongly ? ? ?| ? | ?| infection very | discouraged ? | Overruling: ? | ?| unlikely ? ? ? | ? | ? Clinically unstable ? ? ? + +-------- --------+ + ? High risk for adverse ? ? | <0.25 ?| Bacterial ? ? ?| Discouraged ? | ? outcome ? | ?| infection ? ? ?| ? | ? SEE IMPORTANT NOTE ?| ?| unlikely ? ? ? | ? | ? + +-------- --------+ + -----+| >=0.25 ? ? ? | Bacterial ? ? ?| Encouraged ? ?| ? | ?| infection ? ? ?| ? | ? | ?| likely ? | ? | Consider treatment failure ?+ +------- ---------+ -+ if levels does not decrease | >0.5 ? | Bacterial ? ? ?| Strongly ? ? ?| appropriately ? | ?| infection very | encouraged ? ?| ? | ?| likely ? | ? | ? + +-------- --------+ + -----+ Discontinuation of antibiotics in high-acuity patients with suspected or confirmed sepsis in Adults >= 18 years of age. + +-------- --------+ + -----+|Procalcitonin |Interpretation ?|Antibiotic ? ? |Considerations ? |ng/mL ? | ?|recommendation | ? + +-------- --------+ + -----+| <0.25 ?| Bacterial ? ? ?| Strongly ? ? ?| ? | ?| infection very | discouraged ? | Overruling: ? | ?| unlikely ? ? ? | ? | ? Clinically unstable ? ? ? + +-------- --------+ + ? High risk for adverse ? ? | <0.5 or drop | Bacterial ? ? ?| Discouraged ? | ? outcome ? | >80% from ? ?| infection ? ? ?| ? | ? SEE IMPORTANT NOTE ?| highest PCT ?| unlikely ? ? ? | ? | ? | level ?| ?| ? | ? + +-------- --------+ + -----+| >=0.5 ?| Bacterial ? ? ?| Encouraged ? ?| ? | ?| infection ? ? ?| ? | ? | ?| likely ? | ? | Consider treatment failure ?+ +------- ---------+ -+ if levels does not decrease | >1.0 ? | Bacterial ? ? ?| Strongly ? ? ?| appropriately ? | ?| infection very | encouraged ? ?| ? | ?| likely ? | ? | ? + +-------- --------+ + -----+ Percentage of drop of Procalcitonin calculation for Discontinuation of antibiotics in high-acuity patients with suspected or confirmed sepsis in Adults >= 18 years of age. ? Procalcitonin highest{}-Procalcitonin current{}Delta Procalcitonin = x100% ? Procalcitonin current {} IMPORTANT NOTE: Procalcitonin may be elevated without bacterial infection by physiologic stress related to trauma, leahy, chronic dialysis, metastatic cancer, surgery in the past seven days, malaria, some fungal infections, and some forms of vasculitis. The interpretation algorithm may not apply to patients with immunosuppression (equivalent of >10 mg of prednisone daily), HIV with CD4 cell count < 350 cells/mm3, active malignancy on systemic chemotherapy, solid organ transplant or hematopoietic stem cell transplantation, or hospital acquired pneumonia. Additionally, some clinical trials of procalcitonin have excluded patients with shock requiring vasopressor use, acute respiratory failure requiring mechanical ventilation, or those with known lung abscess/empyema. For further information please refer to:[email or web address] Lab Interpretation Normal (test code = 14454-3) [facility] [id number] 15:15:23 Test Item Value Reference Interpretation Comments Range TROPONIN I (test 0.003 ng/mL See_Comment [Automated code = 3070888864) message] The system which generated this result [...] biotin. Lab Interpretation Normal (test code = 59623-4) [facility] [id number] 13:12:52 Test Item Value Reference Interpretation Comments Range TROPONIN I (test 0.004 ng/mL See_Comment [Automated code = 5955837027) message] The system which generated this result [...] biotin. Lab Interpretation Normal (test code = 77601-2) [facility] (Total Cholesterol, Triglycerides, HDL)2021-11-19 13:04:11 Test Item Value Reference Range Interpretation Comments CHOL (test code = 176 mg/dL 120-200 1412370006) HDL (test code = 50 mg/dL >50 L 6003159743) HDLC RATIO (test code = See_Comment [Au tomated message] 9035529964) The system Styly[employer] generated this result transmit elton reference range : <=4.5. The refe rence range was not u sed to interpret th is result as normal/abnormal . TRIG (test code = 186 mg/dL 30-170 H 2960529019) LDL CHOL (test code = 89 mg/dL See_Comment [Auto mated message] 73134-7) The system [employer] generated this result transmit elton reference range : <=160. The refe rence range was not u sed to interpret th is result as normal/abnormal . VLDL (test code = 37 mg/dL 5-60 7668539840) Lab Interpretation (test Abnormal code = 56897-7) [facility] (NA, K, CL, CO2, GLUCOSE, BUN, CREATININE, CA)2021-11-19 13:03:50 Test Item Value Reference Range Interpretation Comments NA (test code = 137 mmol/L 135-145 9689482356) K (test code = 4.4 mmol/L 3.5-5.0 4933766638) CL (test code = 104 mmol/L 98-108 2476804596) CO2 TOTAL (test code = 26 mmol/L 23-31 9761503506) AGAP (test code = 2-16 4326261933) BUN (test code = 13 mg/dL 7-23 8509165943) GLUCOSE (test code = 110 mg/dL 70-110 2727963272) CREATININE (test code = 0.71 mg/dL 0.50-1.04 6259335533) CALCIUM (test code = 7.6 mg/dL 8.6-10.6 L 2936277741) eGFR (test code = mL/min/1.73m2 0198914403) GI (test code = GI) Association of [...] tests). Lab Interpretation Abnormal (test code = 82571-7) [facility]hamMagn[facility] [id number] 13:03:50 Test Item Value Reference Range Interpretation Comments MAGNESIUM (test code = 0081154266) 1.6 mg/dL 1.7-2.4 L Lab Interpretation (test code = Abnormal 16235-2) [facility]ham[facility]-TERMINAL [id number] 10:42:37 Test Item Value Reference Range Interpretation Comments NT-proBNP (test code 63 pg/mL See_Comment [Autom ated = 8682563397) message] The system which generated this result transmitted reference range : <=125. The reference range was not used to interpret this result as normal/abnormal . GI (test code = GI) Biotin has been reported to cause a negative bias, interpret results relative to patient's use of biotin. Lab Interpretation Normal (test code = 70579-2) [facility]. METABOLIC PANEL ([id number])2021-11-19 10:22:17 Test Item Value Reference Range Interpretation Comments NA (test code = 136 mmol/L 135-145 7412096610) K (test code = 4.3 mmol/L 3.5-5.0 4599741415) CL (test code = 105 mmol/L 98-108 4967123339) CO2 TOTAL (test code = 24 mmol/L 23-31 4467944508) AGAP (test code = 2-16 9182761485) BUN (test code = 13 mg/dL 7-23 5222344419) GLUCOSE (test code = 113 mg/dL 70-110 H 4948866854) CREATININE (test code = 0.69 mg/dL 0.50-1.04 9591511175) TOTAL BILI (test code = 0.6 mg/dL 0.1-1.6 5329835209) CALCIUM (test code = 7.7 mg/dL 8.6-10.6 L 0773849389) T PROTEIN (test code = 7.0 g/dL 6.3-8.2 4497487470) ALBUMIN (test code = 3.8 g/dL 3.5-5.0 7441088637) ALK PHOS (test code = 96 U/L 34-122 7970494199) ALTv (test code = 22 U/L 5-35 1742-6) AST(SGOT) (test code = 47 U/L 13-40 H 5610477397) eGFR (test code = mL/min/1.73m2 2700221375) GI (test code = GI) Association of [...] tests). Lab Interpretation Abnormal (test code = 54216-5) [facility]2022-04-22 10:22:17 Test Item Value Reference Range Interpretation Comments PHOSPHORUS (test code = 2548285859) 3.7 mg/dL 2.5-5.0 Lab Interpretation (test code = Normal 42144-5) [facility]hamPROTHROMBIN TIME / [id number] 10:19:35 Test Item Value Reference Range Interpretation Comments [...] tions. Lab Interpretation (test Normal code = 47302-2) [facility]hamCB with [id number] 09:55:34 Test Item Value Reference Range Interpretation Comments [...] . HGB (test code = 10.1 g/dL 11.6-15.0 L 718-7) HCT (test code = 31.7 % 35.7-45.2 L 4544-3) MCV (test code = 89.5 fL 80.6-95.5 787-2) MCH (test code = 28.5 pg 25.9-32.8 785-6) MCHC (test code = 31.9 g/dL 31.6-35.1 786-4) RDW-SD (test code = 46.2 fL 39.0-49.9 46916-2) RDW-CV (test code = 14.2 % 12.0-15.5 788-0) PLT (test code = See_Comment [Automated 777-3) message] The sy stem which generated this result transmitted reference range : 166 - 358 10*3/ ?L. The reference r jj was not used to interpret this result as normal/abnormal . MPV (test code = 9.9 fL 9.5-12.9 95303-8) NRBC/100 WBC (test See_Comment [Automat ed code = 2245455782) message] The system which generated this result transmitted reference range : 0.0 - 10.0 /100 WBCs. The refer ence range was not u sed to interpret th is result as normal/abnormal . NRBC x10^3 (test code <0.01 See_Comment [Auto mated = 1616422539) message] The s ystem which generated this result transmitted reference range : 10*3/?L. The reference range was not used to interpret this result as normal/abnormal . GRAN MAT (NEUT) % 61.2 % (test code = 770-8) IMM GRAN % (test code 0.30 % = 4518077783) LYMPH % (test code = 27.6 % 736-9) MONO % (test code = 9.8 % 5905-5) EOS % (test code = 0.8 % 713-8) BASO % (test code = 0.3 % 706-2) GRAN MAT x10^3(ANC) 5.62 10*3/uL 1.88-7.09 (test code = 5254547931) IMM GRAN x10^3 (test 0.03 10*3/uL 0.00-0.06 code = 1468988681) LYMPH x10^3 (test code 2.53 10*3/uL 1.32-3.29 = 731-0) MONO x10^3 (test code 0.90 10*3/uL 0.33-0.92 = 742-7) EOS x10^3 (test code = 0.07 10*3/uL 0.03-0.39 711-2) BASO x10^3 (test code 0.03 10*3/uL 0.01-0.07 = 704-7) Lab Interpretation Abnormal (test code = 44117-1) [facility]hamTroponin [id number] 09:51:52 Test Item Value Reference Interpretation Comments Range TROPONIN I (test 0.002 ng/mL See_Comment [Automated code = 8732370171) message] The system which generated this result [...] biotin. Lab Interpretation Normal (test code = 89731-9) [facility]hamGlycosylated Hemoglobin (A1C)2021-11-19 01:10:18 Test Item Value Reference Range Interpretation Comments HGB A1C (test code = 6.0 % 4.0-5.7 H 4548-4) GI (test code = GI) Reference RangesNormal: <5.7%Prediabetes: 5.7 - 6.4%Diabetes: > 6.5% Lab Interpretation (test Abnormal code = 98104-9) [facility]hamThyroid Stimulating Hormone (TSH)2021-11-18 23:28:47 Test Item Value Reference Range Interpretation Comments TSH (test code = See_Comment Biotin has been 6619176827) reported to cau se a negative bias, interpret resul ts relative to pat ient's use of biotin. [Automated mess age] The system [employer] generated this result transmitted ref erence range: 0.45 - 4 .70 mIU/L. The refe rence range was not u sed to interpret this result as normal/abnor mal. Lab Interpretation (test Normal code = 21704-3) [facility]hamTROPONIN [id number] 20:35:45 Test Item Value Reference Interpretation Comments Range TROPONIN I (test 0.002 ng/mL See_Comment [Automated code = 1174659995) message] The system which generated this result [...] biotin. Lab Interpretation Normal (test code = 44332-7) [facility]hamMAGNESIUM2022-04-21 20:24:38 Test Item Value Reference Range Interpretation Comments MAGNESIUM (test code = 5458608532) 1.8 mg/dL 1.7-2.4 Lab Interpretation (test code = Normal 57172-9) [facility]hamCOMP. METABOLIC PANEL (66043)2021-11-18 20:24:18 Test Item Value Reference Range Interpretation Comments NA (test code = 136 mmol/L 135-145 9568419519) K (test code = 4.5 mmol/L 3.5-5.0 8445591688) CL (test code = 99 mmol/L 98-108 2550589777) CO2 TOTAL (test code 28 mmol/L 23-31 = 5889252469) AGAP (test code = 2-16 0786395865) BUN (test code = 20 mg/dL 7-23 3318463768) GLUCOSE (test code = 105 mg/dL 70-110 0504420750) CREATININE (test code 0.89 mg/dL 0.50-1.04 = 8960611415) TOTAL BILI (test code 0.8 mg/dL 0.1-1.1 = 0668821507) CALCIUM (test code = 9.2 mg/dL 8.6-10.6 7038553271) T PROTEIN (test code 8.0 g/dL 6.3-8.2 = 6613962585) ALBUMIN (test code = 4.7 g/dL 3.5-5.0 3778317337) ALK PHOS (test code = 90 U/L 34-122 1677065756) ALTv (test code = 15 U/L 5-35 1742-6) AST(SGOT) (test code 29 U/L 13-40 = 2202412898) eGFR (test code = mL/min/1.73m2 9770691147) GI (test code = GI) Association of Glomerular Filtration Rate (GFR) and Staging of Kidney Disease* + + +- +| GFR (mL/min/1.73 m2) ?| With Kidney Damage ?| ?Without Kidney Damage+ ------+ ----+ ------+| ?>90 ?| ?Stage one ?| ? Normal ?+ -+ + -+| ?60-89 ?| ?Stage two ?| ? Decreased GFR ? + + +- +| ?30-59 ?| ?Stage three ?| ? Stage three ? + + +- +| ?15-29 ?| ?Stage four ? | ? Stage four ?+ -+ + -+| ?<15 (or dialysis) ? ?| ?Stage five ? | ? Stage five ?+ -+ + -+ *Each stage assumes the associated GFR level [...] or urine or abnormalities in imaging tests). [facility]ham[facility]IP[facility]22-[facility]-21 20:24:18 Test Item Value Reference Range Interpretation Comments LIPASE (test code = 1772682846) 105 U/L 0-220 Lab Interpretation (test code = Normal 03986-6) [facility] WITH [id number] 20:17:33 Test Item Value Reference Range Interpretation Comments WBC (test code = See_Comment H [Automated 4851-2) message] The system which generated this result transmit elton reference range : 4.30 - 11.10 10*3/?L. The reference range was not used to interpret this result as normal/abnormal . RBC (test code = See_Comment [Automated 913-8) message] The system which generated this result transmit elton reference range : 3.93 - 5.25 10*6/?L. The reference range was not used to interpret this result as normal/abnormal . HGB (test code = 12.5 g/dL 11.6-15.0 718-7) HCT (test code = 38.8 % 35.7-45.2 4544-3) MCV (test code = 88.4 fL 80.6-95.5 787-2) MCH (test code = 28.5 pg 25.9-32.8 785-6) MCHC (test code = 32.2 g/dL 31.6-35.1 786-4) RDW-SD (test code = 45.2 fL 39.0-49.9 30332-2) RDW-CV (test code = 14.1 % 12.0-15.5 788-0) PLT (test code = See_Comment [Automated 937-3) message] The system which generated this result transmit elton reference range : 166 - 358 10*3/ ?L. The reference range was not u sed to interpret th is result as normal/abnormal . MPV (test code = 9.4 fL 9.5-12.9 L 05764-1) NRBC/100 WBC (test See_Comment [Automat ed code = [id number]) message] The system which generated this result transmit elton reference range : 0.0 - 10.0 /100 WBCs. The reference range was not used to interpret this result as normal/abnormal . NRBC x10^3 (test code <0.01 See_Comment [Auto mated = [id number]) message] The system which generated this result transmit elton reference range : 10*3/?L. The reference range was not used to interpret this result as normal/abnormal . GRAN MAT (NEUT) % 66.9 % (test code = 770-8) IMM GRAN % (test code 0.60 % = 3286403601) LYMPH % (test code = 22.3 % 736-9) MONO % (test code = 8.8 % 5905-5) EOS % (test code = 1.0 % 713-8) BASO % (test code = 0.4 % 706-2) GRAN MAT x10^3(ANC) 11.23 10*3/uL 1.88-7.09 H (test code = 4273004887) IMM GRAN x10^3 (test 0.10 10*3/uL 0.00-0.06 H code = 5200981821) LYMPH x10^3 (test code 3.74 10*3/uL 1.32-3.29 H = 731-0) MONO x10^3 (test code 1.48 10*3/uL 0.33-0.92 H = 742-7) EOS x10^3 (test code = 0.16 10*3/uL 0.03-0.39 711-2) BASO x10^3 (test code 0.06 10*3/uL 0.01-0.07 = 704-7) Lab Interpretation Abnormal (test code = 53149-6) [facility] ABD PELVIS W WO [id number] 12:15:00 [facility] : 1950 Sex: F Name: LILIAN MORENO [facility] : 1950 Age/S: 71 / F [id number] Unit #: [id number]: [place] [address] Phys: Tomas Harris MD Acct: [id number] Dis Date: Status: REG CLI PHONE#: [phone] Exam Date: 10/08/2021 1145 FAX #: Reason: IRON DEFICIENCY ANEMIA UNSPECIFIED EXAMS:CPT: [id number] CT ABD PELVIS W WO CONT 90414 EXAM: - CT ABD PELVIS W WO CONT INDICATION: IRON DEFICIENCY ANEMIA UNSPECIFIED T18 COMPARISON: None TECHNIQUE: CT of the abdomen and pelvis was performed with and without intravenous contrast. All CT scans are performed using radiation dose reduction technique. Technical factors are evaluated and adjusted to insure appropriate moderation of exposure. Automated dose management technology is applied to adjust the radiation dose to minimize exposure while achieving a diagnostic quality image. FINDINGS: Visualized chest: No significant abnormality seen. Hepatobiliary: Liver appears unremarkable. Prior cholecystectomy. No intrahepatic or extrahepatic biliary dilatation is seen. Hepatic and portal veins appear patent. Pancreas: Appears unremarkable. Spleen:Appears unremarkable. Adrenal glands: Appear unremarkable. Kidneys: There are 2-3 punctate nonobstructing calculi noted in the kidney measuring up to 2 mm in size. No hydronephrosis seen. Gastrointestinal: Appendix: The appendix is not well delineated. Bowel: No bowel obstruction or ileus seen. Colonic diverticulosis seen. No evidence of diverticulitis seen. Vascular: Aorta does not appear aneurysmal. Lymph nodes: No enlarged lymph nodes seen. Peritoneum: No ascites or free air is seen. PAGE 1 Signed Report (CONTINUED) Name: LILIAN MORENO : 1950 Age/S: 71 / F [address] Unit #: [id number] Loc: [place] [address] Phys: Tomas Harris MD Acct: [id number] Dis Date: Status: REG CLI PHONE #: [phone] Exam Date: 10/08/2021 1145 FAX #: Reason: IRON DEFICIENCY ANEMIA UNSPECIFIED EXAMS: CPT: [id number] CT ABD PELVIS W WO CONT 53283 (Continued) Genitourinary:Urinary bladder appears to be mildly distended. Soft tissues:No significant abnormality seen. Bones:No acute or destructive osseous process seen. IMPRESSION: No free air, bowel obstruction, ileus or fluid collection seen. Colonic diverticulosis. Bilateral nephrolithiasis. Please refer to the findings section for additional details. at 1215 Reported and signed by: Michael Russell M.D. CC: Tomas Harris MD Technologist:Heavenly Edwards, RT(R) CTDI:DLP: Trnscb Date/Time: 10/08/2021 (1215) t.SDR.[email or web address] Orig Print D/T: S: 10/08/2021 (0429) PAGE 2 Signed ReportCREATININE W ESTIMATED [id number] 10:46:00 Test Item Value Reference Range Interpretation Comments GLOMERULAR FILTRATION RATE (test 58 estGFR >60 L code = GFR) CREATININE (test code = CREAT) 1.0 MG/DL 0.6-1.0 N BLOOD UREA [id number] 10:46:00 Test Item Value Reference Range Interpretation Comments BLOOD UREA NITROGEN (test code = 15 MG/DL 7-18 N BUN) LAB ONLY COVID [id number] 15:07:18COVID DMT InterpretationInterpretation/Recommendations:Molecular NAAT Tests for Active Infection with the SARS-CoV-2 Virus:The patient has currently tested negative for the SARS-CoV-2 virus that causesCOVID-19 illness. This most likely indicates that the patient does not have an active infection withthe SARS-CoV-2 virus. However, infection is not completely ruled out as the false negative rate for m olecular NAAT testing using a nasopharyngeal sample can be up to 30%, mostly dependent on the timingof sample collection in relation to illness onset [...] weeks prior to antibody testing, any positive SARS -CoV-2 IgG antibody result is likely due to vaccination. The specific duration and strength of immunity from SARS-CoV-2 IgG antibodies is highly variable between individuals and is dependent on a variety of factors, including infection vs. vaccination response, initial infection severity, the strengthof the patient's own immune system, and the variants to which the patient has been exposed. ? ------- Interpretation Result Comments:These interpretation comments are based upon all COVID-19 testing the patient has had at [facility], includingmolecular NAAT testing (more commonly known as PCR testing and Rapid ID Now testing) and antibody testing. It does not take into account any testing that a patient has had outside of the [facility] medical record. [facility] LABORATORY SERVICESCOVID PonivfkNRKX-XlF-0 Rapid ID NOW (no units) ? ? Date ? Value ? 03/06/2021 ? Not Detected ? ? ? 05/26/2020 ? Not Detected ? [facility] (NA, K, CL, CO2, GLUCOSE, BUN, CREATININE, CA)2021-03-08 10:54:50 Test Item Value Reference Range Interpretation Comments NA (test code = 139 mmol/L 135-145 6653099806) K (test code = 3.8 mmol/L 3.5-5.0 9435229858) CL (test code = 103 mmol/L 98-108 8900661997) CO2 TOTAL (test code 27 mmol/L 23-31 = 6842503217) AGAP (test code = 2-16 3509407799) BUN (test code = 16 mg/dL 7-23 5853233497) GLUCOSE (test code = 109 mg/dL 70-110 4422622361) CREATININE (test code 0.90 mg/dL 0.50-1.04 = 6215236972) CALCIUM (test code = 9.2 mg/dL 8.6-10.6 2837679657) eGFR (test code = mL/min/1.73m2 8140891108) GI (test code = GI) Association of Glomerular Filtration Rate (GFR) and Staging of Kidney Disease* + + +- +| GFR (mL/min/1.73 m2) ?| With Kidney Damage ?| ?Without Kidney Damage+ ------+ ----+ ------+| ?>90 ?| ?Stage one ?| ? Normal ?+ -+ + -+| ?60-89 ?| ?Stage two ?| ? Decreased GFR ? + + +- +| ?30-59 ?| ?Stage three ?| ? Stage three ? + + +- +| ?15-29 ?| ?Stage four ? | ? Stage four ?+ -+ + -+| ?<15 (or dialysis) ? ?| ?Stage five ? | ? Stage five ?+ -+ + -+ *Each stage assumes the associated GFR level [...] or urine or abnormalities in imaging tests). [facility] WITH [id number] 10:13:27 Test Item Value Reference Range Interpretation [...] RDW-SD (test code = 46.5 fL 39.0-49.9 61696-5) RDW-CV (test code = 14.5 % 12.0-15.5 788-0) PLT (test code = See_Comment [Automated 777-3) message] The sy stem which generated this result transmitted reference range : 166 - 358 10*3/ ?L. The reference r jj was not used to interpret this result as normal/abnormal . MPV (test code = 9.7 fL 9.5-12.9 21070-1) NRBC/100 WBC (test See_Comment [Automat ed code = 8460075852) message] The system which generated this result transmitted reference range : 0.0 - 10.0 /100 WBCs. The refer ence range was not u sed to interpret th is result as normal/abnormal . NRBC x10^3 (test code <0.01 See_Comment [Auto mated = 6002346327) message] The s [employer] which generated this result transmitted reference range : 10*3/?L. The reference range was not used to interpret this result as normal/abnormal . GRAN MAT (NEUT) % 56.7 % (test code = 770-8) IMM GRAN % (test code 0.50 % = 8564623600) LYMPH % (test code = 33.2 % 736-9) MONO % (test code = 6.7 % 5905-5) EOS % (test code = 2.6 % 713-8) BASO % (test code = 0.3 % 706-2) GRAN MAT x10^3(ANC) 5.48 10*3/uL 1.88-7.09 (test code = 4822879074) IMM GRAN x10^3 (test 0.05 10*3/uL 0.00-0.06 code = 3570181622) LYMPH x10^3 (test code 3.21 10*3/uL 1.32-3.29 = 731-0) MONO x10^3 (test code 0.65 10*3/uL 0.33-0.92 = 742-7) EOS x10^3 (test code = 0.25 10*3/uL 0.03-0.39 711-2) BASO x10^3 (test code 0.03 10*3/uL 0.01-0.07 = 704-7) Lab Interpretation Abnormal (test code = 97190-9) [facility] [id number] 11:31:59 Test Item Value Reference Interpretation Comments Range TROPONIN I (test 0.001 ng/mL See_Comment [Automated code = 5700345158) message] The system which generated this result [...] biotin. Lab Interpretation Normal (test code = 31626-8) [facility] METABOLIC PANEL (NA, K, CL, CO2, GLUCOSE, BUN, CREATININE, CA)2021-03-07 11:21:57 Test Item Value Reference Range Interpretation Comments NA (test code = 139 mmol/L 135-145 4403294281) K (test code = 3.4 mmol/L 3.5-5.0 L 4836688955) CL (test code = 103 mmol/L 98-108 1676690573) CO2 TOTAL (test code = 28 mmol/L 23-31 1573870745) AGAP (test code = 2-16 8037012503) BUN (test code = 12 mg/dL 7-23 6871543008) GLUCOSE (test code = 100 mg/dL 70-110 0808734995) CREATININE (test code = 0.72 mg/dL 0.50-1.04 9085909982) CALCIUM (test code = 9.2 mg/dL 8.6-10.6 3171544110) eGFR (test code = mL/min/1.73m2 4377999188) GI (test code = GI) Association of [...] tests). Lab Interpretation Abnormal (test code = 02158-4) [facility] 11:21:57 Test Item Value Reference Range Interpretation Comments MAGNESIUM (test code = 4478573709) 1.8 mg/dL 1.7-2.4 Lab Interpretation (test code = Normal 24536-6) [facility] WITH [id number] 10:55:38 Test Item Value Reference Range Interpretation [...] RDW-SD (test code = 45.5 fL 39.0-49.9 82243-2) RDW-CV (test code = 14.2 % 12.0-15.5 788-0) PLT (test code = See_Comment [Automated 777-3) message] The sy stem which generated this result transmitted reference range : 166 - 358 10*3/ ?L. The reference r jj was not used to interpret this result as normal/abnormal . MPV (test code = 9.5 fL 9.5-12.9 37635-7) NRBC/100 WBC (test See_Comment [Automat ed code = 2240446391) message] The system which generated this result transmitted reference range : 0.0 - 10.0 /100 WBCs. The refer ence range was not u sed to interpret th is result as normal/abnormal . NRBC x10^3 (test code <0.01 See_Comment [Auto mated = 2750578809) message] The s ystem which generated this result transmitted reference range : 10*3/?L. The reference range was not used to interpret this result as normal/abnormal . GRAN MAT (NEUT) % 58.3 % (test code = 770-8) IMM GRAN % (test code 0.50 % = 9063731010) LYMPH % (test code = 30.5 % 736-9) MONO % (test code = 8.2 % 5905-5) EOS % (test code = 2.2 % 713-8) BASO % (test code = 0.3 % 706-2) GRAN MAT x10^3(ANC) 5.52 10*3/uL 1.88-7.09 (test code = 1800025188) IMM GRAN x10^3 (test 0.05 10*3/uL 0.00-0.06 code = 6228733081) LYMPH x10^3 (test code 2.89 10*3/uL 1.32-3.29 = 731-0) MONO x10^3 (test code 0.78 10*3/uL 0.33-0.92 = 742-7) EOS x10^3 (test code = 0.21 10*3/uL 0.03-0.39 711-2) BASO x10^3 (test code 0.03 10*3/uL 0.01-0.07 = 704-7) Lab Interpretation Abnormal (test code = 30409-0) [facility] STIMULATING [id number] 03:02:03 Test Item Value Reference Range Interpretation Comments TSH (test code = See_Comment Biotin has been 1169981222) reported to cau se a negative bias, interpret resul ts relative to pat lopez's use of biotin. [Automated mess age] The system [employer] generated this result transmitted ref erence range: 0.45 - 4 .70 mIU/L. The refe rence range was not u sed to interpret this result as normal/abnor mal. Lab Interpretation (test Normal code = 68175-8) [facility]hamD-[id number] 02:24:42 Test Item Value Reference Interpretation Comments Range D-DIMER (test code = See_Comment H [Autom ated 0414367840) message] The system which generated this result [...] diagnosis. Lab Interpretation Abnormal (test code = 97495-2) [facility]IV[facility] PARTIAL THRMPLAS [id number] 02:18:00 Test Item Value Reference Range Interpretation Comments APTT Patient (test See_Comment [Automat ed code = 3173-2) message] The system which generated this result transmitted reference range : 23 - 38 Seconds . The reference range was not used to interpr et this result as normal/abnormal . GI (test code = GI) The [facility] patient population mean normal value for aPTT is 30 seconds. Lab Interpretation Normal (test code = 53685-4) [facility]hamPROTHROMBIN TIME / [id number] 02:16:04 Test Item Value Reference Range Interpretation Comments PROTIME PATIENT (test See_Comment [Auto mated message] code = 5964-2) The system [employer] generated this result transmitted ref erence range: 12.0 - 1 4.7 Seconds. The re ference range was not u sed to interpret this result as normal/abnor mal. INR (test code = 6301-6) Nor mal INR <1.1; Warfarin Therap eutic range 2.0 to 3. 0 or 2.5 to 3.5, dep ending upon the indica tions. Lab Interpretation (test Normal code = 55275-8) [facility]2021-08-08 00:08:27 Test Item Value Reference Range Interpretation Comments APPEARANCE (test code = Clear Clear 9409251235) COLOR (test code = Yellow Yellow 9554535103) PH (test code = 4.8-8.0 7059831113) SP GRAVITY (test code = 1.003-1.030 2257679826) GLU U QUAL (test code = Normal Normal 1416110480) BLOOD (test code = Negative Negative 3052025889) KETONES (test code = Negative Negative 4497699198) PROTEIN (test code = Negative Negative 2887-8) UROBILIN (test code = Normal Normal 9863960131) BILIRUBIN (test code = Negative Negative 7436043774) NITRITE (test code = Negative Negative 5837973837) LEUK LISA (test code = Negative Negative 0481977966) RBC/HPF (test code = See_Comment [Autom ated message] 3244656539) The system [employer] generated this result transmitted ref erence range: 0 - 3 HP F. The reference range was not used to int erpret this result as normal/abnormal . WBC/HPF (test code = See_Comment [Autom ated message] 7104953961) The system [employer] generated this result transmitted ref erence range: 0 - 5 HP F. The reference range was not used to int erpret this result as normal/abnormal . BACTERIA (test code = Few Negative A 3229117660) MUCOUS (test code = Slight Negative LPF A 4890032561) SQ EPITH (test code = HPF 4918454227) Lab Interpretation (test Abnormal code = 39246-7) [facility]XR CHEST 1 [id number] 00:04:41 No acute cardiopulmonary disease. Preliminary Report Dictated by Resident: Stu Delong MD., have reviewed this study and agree with the abovereport.EXAM: XR CHEST 1 VW 03/06/2021 5:31 PM HISTORY: 70 years-old Female with chest pain COMPARISON: Chest radiograph 05/26/2020 TECHNIQUE: AP chest radiograph. FINDINGS: Lungs are clear, well-expanded, without focal consolidation, pleuraleffusion, or pneumothorax. The cardiomediastinal silhouette is normal in size. No acute osseous abnormalities. [facility], Radiant Results Inft User - 03/06/2021 7:05 PM CDTFormatting of this note might be diffe rent from the original.EXAM: XR CHEST 1 VW 03/06/2021 5:31 PMHISTORY: 70 years-old Female with chest pain COMPARISON: Chest radiograph 05/26/2020TECHNIQUE: AP chest radiograph.FINDINGS:Lungs are clear, well-expanded, without focal consolidation, pleuraleffusion, or pneumothorax.The cardiomediastinal silhouette is normal in size.No acute osseous abnormalities.IMPRESSIONNo acute cardiopulmonary disease.Preliminary Report Dictated by Resident: Stu Gracia MD., have reviewed this study and agree with the abovereport. [facility]hamTROP[facility] [id number] 23:16:13 Test Item Value Reference Interpretation Comments Range TROPONIN I (test 0.001 ng/mL See_Comment [Automated code = 2022418952) message] The system which generated this result [...] biotin. Lab Interpretation Normal (test code = 29823-5) [facility]hamN-TERMINAL [id number] 23:12:53 Test Item Value Reference Range Interpretation Comments NT-proBNP (test code 55 pg/mL See_Comment [Autom ated = 1240414700) message] The system which generated this result transmitted reference range : <=125. The reference range was not used to interpret this result as normal/abnormal . GI (test code = GI) Biotin has been reported to cause a negative bias, interpret results relative to patient's use of biotin. Lab Interpretation Normal (test code = 09771-6) [facility]2021-08-07 23:06:13 Test Item Value Reference Range Interpretation Comments MAGNESIUM (test code = 1021016605) 1.4 mg/dL 1.7-2.4 L Lab Interpretation (test code = Abnormal 87742-6) [facility]hamCOMP. METABOLIC PANEL (85234)2021-03-06 23:05:33 Test Item Value Reference Range Interpretation Comments NA (test code = 139 mmol/L 135-145 8382871940) K (test code = 3.6 mmol/L 3.5-5.0 9399840126) CL (test code = 103 mmol/L 98-108 3890791463) CO2 TOTAL (test code = 26 mmol/L 23-31 1811881426) AGAP (test code = 2-16 5236351092) BUN (test code = 10 mg/dL 7-23 7757855607) GLUCOSE (test code = 131 mg/dL 70-110 H 4056124052) CREATININE (test code = 0.74 mg/dL 0.50-1.04 3532394598) TOTAL BILI (test code = 0.5 mg/dL 0.1-1.1 1509288850) CALCIUM (test code = 9.7 mg/dL 8.6-10.6 5046414687) T PROTEIN (test code = 7.7 g/dL 6.3-8.2 6631739999) ALBUMIN (test code = 4.3 g/dL 3.5-5.0 3366635237) ALK PHOS (test code = 102 U/L 34-122 4104670066) ALTv (test code = 14 U/L 5-35 1742-6) AST(SGOT) (test code = 24 U/L 13-40 3339055599) eGFR (test code = mL/min/1.73m2 4341355796) GI (test code = GI) Association of [...] tests). Lab Interpretation Abnormal (test code = 71504-8) [facility]LIPASE2021-08-07 23:05:33 Test Item Value Reference Range Interpretation Comments LIPASE (test code = 9587886499) 112 U/L 0-220 Lab Interpretation (test code = Normal 85367-8) [facility]OVID[facility] (ID NOW RAPID TESTING)2021-03-06 22:49:11 Test Item Value Reference Range Interpretation Comments SARS-CoV-2 Rapid ID NOW Not Detected Not Detected (test code = 71434-5) GI (test code = GI) ID NOW COVID-19 Assay is an isothermal nucleic acid amplification test intended for the qualitative detection of nucleic acid from SARS-CoV-2 viral RNA in nasopharyngeal ([employer] ENGINEER) specimens. It is used under Emergency Use [...] indicated. Lab Interpretation Normal (test code = 33106-2) [facility] WITH [id number] 22:36:13 Test Item Value Reference Range Interpretation Comments WBC (test code = See_Comment [Automated 4702-2) message] The sy stem which generated this result transmitted reference range : 4.30 - 11.10 10*3/?L. The reference range was not used to interpret this result as normal/abnormal . RBC (test code = See_Comment [Automated 054-8) message] The sy stem which generated this [...] RDW-SD (test code = 44.5 fL 39.0-49.9 91789-0) RDW-CV (test code = 14.1 % 12.0-15.5 788-0) PLT (test code = See_Comment [Automated 056-3) message] The sy stem which generated this result transmitted reference range : 166 - 358 10*3/ ?L. The reference r jj was not used to interpret this result as normal/abnormal . MPV (test code = 9.2 fL 9.5-12.9 L 05961-2) NRBC/100 WBC (test See_Comment [Automat ed code = 0151381972) message] The system which generated this result transmitted reference range : 0.0 - 10.0 /100 WBCs. The refer ence range was not u sed to interpret th is result as normal/abnormal . NRBC x10^3 (test code <0.01 See_Comment [Auto mated = 9377952463) message] The s ystem which generated this result transmitted reference range : 10*3/?L. The reference range was not used to interpret this result as normal/abnormal . GRAN MAT (NEUT) % 57.8 % (test code = 770-8) IMM GRAN % (test code 0.70 % = 5156446363) LYMPH % (test code = 32.9 % 736-9) MONO % (test code = 6.0 % 5905-5) EOS % (test code = 2.3 % 713-8) BASO % (test code = 0.3 % 706-2) GRAN MAT x10^3(ANC) 4.97 10*3/uL 1.88-7.09 (test code = 1402804828) IMM GRAN x10^3 (test 0.06 10*3/uL 0.00-0.06 code = 9763426206) LYMPH x10^3 (test code 2.83 10*3/uL 1.32-3.29 = 731-0) MONO x10^3 (test code 0.52 10*3/uL 0.33-0.92 = 742-7) EOS x10^3 (test code = 0.20 10*3/uL 0.03-0.39 711-2) BASO x10^3 (test code 0.03 10*3/uL 0.01-0.07 = 704-7) Lab Interpretation Abnormal (test code = 89774-4) [facility]2021-07-22 05:15:11 Test Item Value Reference Range Interpretation Comments Fungus culture No growth Specimen isolate (test [facility] ecimen code = 1441) of Source: TissueS pecimen incubation. Site: [facility] [id number] 18:16:42 1. ?Diffuse bladder wall thickening is consistent with confirmed cystitis. 2. ?Diverticulosis. Hepatomegaly and hepatic steatosis. Postsurgicalchanges of cholecystectomy and hysterectomy. Nonobstructing punctatecalculi are seen in both kidneys. Preliminary Report Dictated by Resident: Scott Maldonado ?MD. Cristobal, have reviewed this study and agree with theabove report.EXAM: CT ABDOMEN PELVIS W CONTRAST HISTORY: 70 years-old Female: Abdominal pain, acute, nonlocalized lower abd pain . "Urinary retention since yesterday. Complains ofabdominal pain and nausea" TECHNIQUE: Contiguous axial imaging from the level of the lung basesthrough the proximal thighs was performed with intravenous contrast.Coronal and sagittal reconstructions were obtained. COMPARISON: None FINDINGS: LOWER THORAX: Thelung bases are clear aside from dependent, bibasilaratelectasis. The heart is mildly enlarged. LIVER: The liver is mildly enlarged, and measures 18.4 cm in thecraniocaudal dimension. No focal hepatic le anel is seen. The hepaticparenchyma is diffusely hypoattenuating. GALLBLADDER AND BILIARY TREE: Postsurgical changes of cholecystectomy areseen. ?No intrahepatic biliary ductal dilation is visualized.Prominence ofthe common bile duct to 0.7 cm in diameter is within expected limits of ageand reservoir phenomenon. SPLEEN: The spleen appears unremarkable. PANCREAS: No ductal dilation or masses are visualized. Diffuse fattyatrophy is noted. ADRENAL GLANDS: No [...] ventral hernias are seen. LYMPH NODES: No enlarged intra-abdominal or pelvic lymph nodes are found. VESSELS: Moderate atherosclerotic calcifications affect the abdominalaorta, bilateral common iliac arteries, and their branch vessels. BONES AND SOFT TISSUES: No suspicious lytic or sclerotic bony lesions arepresent. Spondylotic changes are manifested by facet arthropathy. [facility], Radiant Results Inft User - 02/07/2021 1:17 PM CDTFormatting of this note mightbe different from the original.EXAM: CT ABDOMEN PELVIS W CONTRASTHISTORY: 70 years-old [...] lesion is seen. The hepaticparenchyma is diffusely hypo attenuating. GALLBLADDER AND BILIARY TREE: Post surgical changes of cholecystectomy areseen. No intrahepatic biliary ductal dilation is visualized. Prominence ofthe common bile duct to 0.7 cm in diameter is within expected limits of ageand reservoir phenomenon. SPLEEN: The spleen appears unremarkable.P ANCREAS: No ductal dilation or masses are visualized. [...] intra-abdominal or pelvic lymph nodes are found.VESSELS: Moderateatherosclerotic calcifications affect the abdominalaorta, bilateral common iliac arteries, and theirbranch vessels.BONES AND SOFT TISSUES: No suspicious lytic or sclerotic bony lesions arepresent. Spondylotic changes are manifested by facet arthropathy.IMPRESSION1. Diffuse bladder wall thickening is consistent with confirmed cystitis.2. Diverticulosis. Hepatomegaly and hepatic steatosis. Postsurgicalchanges of cholecystectomy and hysterectomy. Nonobstructing punctatecalculi are seen in both kidneys.Preliminary Report Dictated by Resident: Enoc Jolly, Scott Jain MD., have reviewed this study and agree with theabove report.[facility] [id number] 17:06:32 Test Item Value Reference Range Interpretation Comments APPEARANCE (test code = Cloudy Clear A 3581126914) COLOR (test code = Yellow Yellow 6756986033) PH (test code = 4.8-8.0 2893219452) SP GRAVITY (test code = 1.003-1.030 4588433831) GLU U QUAL (test code = Normal Normal 6580189463) BLOOD (test code = 1+ Negative A 8791417176) KETONES (test code = Negative Negative 1096838308) PROTEIN (test code = Negative Negative 2887-8) UROBILIN (test code = Normal Normal 8720880453) BILIRUBIN (test code = Negative Negative 6500950084) NITRITE (test code = Negative Negative 8316801076) LEUK LISA (test code = 500/uL Negative A 4991045092) RBC/HPF (test code = See_Comment H [Autom ated message] 7868632391) The system Stylyt generated this result transmitted ref erence range: 0 - 3 HP F. The reference range was not used to int erpret this result as normal/abnormal . WBC/HPF (test code = >182 See_Comment H [Autom ated message] 2828615816) The system Stylyt generated this result transmitted ref erence range: 0 - 5 HP F. The reference range was not used to int erpret this result as normal/abnormal . BACTERIA (test code = Few Negative A 5384058360) MUCOUS (test code = Moderate Negative LPF A 5509509021) SQ EPITH (test code = HPF 3072560583) WBC CLUMPS (test code = See_Comment H [Au tomated message] 4738772263) The system Stylyt generated this result transmitted ref erence range: <=1 HPF. The reference range was not used to int erpret this result as normal/abnormal . GARRET EPITH (test code = See_Comment H [Aut omated message] 7685565245) The system Stylyt generated this result transmitted ref erence range: <=1 HPF. The reference range was not used to int erpret this result as normal/abnormal . Lab Interpretation (test Abnormal code = 64254-3) [facility]. METABOLIC PANEL (88646)2021-02-07 16:33:45 Test Item Value Reference Range Interpretation Comments NA (test code = 138 mmol/L 135-145 3060082628) K (test code = 3.5 mmol/L 3.5-5.0 2947231445) CL (test code = 101 mmol/L 98-108 8451676325) CO2 TOTAL (test code = 25 mmol/L 23-31 4448787558) AGAP (test code = 2-16 5665596911) BUN (test code = 12 mg/dL 7-23 6107964510) GLUCOSE (test code = 141 mg/dL 70-110 H 3468265086) CREATININE (test code = 0.86 mg/dL 0.50-1.04 2546630684) TOTAL BILI (test code = 0.6 mg/dL 0.1-1.6 0983339783) CALCIUM (test code = 9.5 mg/dL 8.6-10.6 7628057824) T PROTEIN (test code = 8.1 g/dL 6.3-8.2 2335405737) ALBUMIN (test code = 4.7 g/dL 3.5-5.0 8876769820) ALK PHOS (test code = 101 U/L 34-122 7112254348) ALTv (test code = 17 U/L 5-35 1742-6) AST(SGOT) (test code = 28 U/L 13-40 4379025890) eGFR (test code = mL/min/1.73m2 8472247504) GI (test code = GI) Association of [...] tests). Lab Interpretation Abnormal (test code = 82015-8) [facility] with Yzzalzhalxsj9081-42-78 16:22:44 Test Item Value Reference Range Interpretation Comments WBC (test code = See_Comment [Automated 7899-2) message] The sy stem which generated this [...] RDW-SD (test code = 42.2 fL 39.0-49.9 35498-3) RDW-CV (test code = 13.5 % 12.0-15.5 788-0) PLT (test code = See_Comment [Automated 777-3) message] The sy stem which generated this result transmitted reference range : 166 - 358 10*3/ ?L. The reference r jj was not used to interpret this result as normal/abnormal . MPV (test code = 9.0 fL 9.5-12.9 L 22658-6) NRBC/100 WBC (test See_Comment [Automat ed code = 2240982466) message] The system which generated this result transmitted reference range : 0.0 - 10.0 /100 WBCs. The refer ence range was not u sed to interpret th is result as normal/abnormal . NRBC x10^3 (test code <0.01 See_Comment [Auto mated = 5242500566) message] The s ystem which generated this result transmitted reference range : 10*3/?L. The reference range was not used to interpret this result as normal/abnormal . GRAN MAT (NEUT) % 68.1 % (test code = 770-8) IMM GRAN % (test code 0.40 % = 2508113423) LYMPH % (test code = 22.7 % 736-9) MONO % (test code = 7.2 % 5905-5) EOS % (test code = 1.3 % 713-8) BASO % (test code = 0.3 % 706-2) GRAN MAT x10^3(ANC) 6.43 10*3/uL 1.88-7.09 (test code = 9027136077) IMM GRAN x10^3 (test 0.04 10*3/uL 0.00-0.06 code = 2530776157) LYMPH x10^3 (test code 2.14 10*3/uL 1.32-3.29 = 731-0) MONO x10^3 (test code 0.68 10*3/uL 0.33-0.92 = 742-7) EOS x10^3 (test code = 0.12 10*3/uL 0.03-0.39 711-2) BASO x10^3 (test code 0.03 10*3/uL 0.01-0.07 = 704-7) Lab Interpretation Abnormal (test code = 27402-8) [facility] aabvx8475-36-63 19:30:55 Test Item Value Reference Range Interpretation Comments Fungus smear No fungi Specimen (test code = observed. InformationSpec imen Source: 1443) TissueSpecimen Site: Eye: Donor rim and m kaushalia [facility] Pre/Post [id number] 23:25:56 Test Item Value Reference Range Interpretation Comments Ventricular rate (test code = 253) Atrial rate (test code = 255) FL interval (test code = 266) QRSD interval [...] available-Electronica lly Signed By Heber Hernandez MD ([id number]) on 01/15/2021 6:25:56 PM [facility] [id number] 15:27:00 Test Item Value Reference Range Interpretation Comments FERRITIN (test code = 11.7 ng/mL - 5250531422) GI (test code = GI) Biotin has been reported to cause a negative bias, interpret results relative to patient's use of biotin. Lab Interpretation (test Normal code = 32901-5) [facility] [id number] 10:01:00 Test Item Value Reference Range Interpretation Comments TROPONIN I (test <0.012 See_Comment [Automated code = 2291080218) message] The system which generated this result [...] ? Lab Interpretation Normal (test code = 69911-0) [facility] [id number] 06:25:00 Test Item Value Reference Range Interpretation Comments TROPONIN I (test <0.012 See_Comment [Automated code = 4357032089) message] The system which generated this result [...] ? Lab Interpretation Normal (test code = 63771-8) [facility] (NA, K, CL, CO2, GLUCOSE, BUN, CREATININE, CA)2020-05-27 06:14:00 Test Item Value Reference Range Interpretation Comments NA (test code = 137 mmol/L 135-145 2786582292) K (test code = 4.0 mmol/L 3.5-5 4449383118) CL (test code = 100 mmol/L 98-108 4887046343) CO2 TOTAL (test code = 30 mmol/L 23-31 0667701359) AGAP (test code = 2-16 4016711771) BUN (test code = 17 mg/dL 7-23 7293316901) GLUCOSE (test code = 113 mg/dL 70-110 H 7071450846) CREATININE (test code = 0.80 mg/dL 0.5-1.04 5050939785) CALCIUM (test code = 8.7 mg/dL 8.6-10.6 9578974851) eGFR Calculation mL/min/1.73m2 (Non-) (test code = 4798378919) eGFR Calculation mL/min/1.73m2 () (test code = 9904593962) GI (test code = GI) Association of [...] tests). Lab Interpretation Abnormal (test code = 41481-1) [facility] with Ftgyxhggsjlo6065-63-00 05:46:00 Test Item Value Reference Range Interpretation Comments WBC (test code = See_Comment [Automated 5986-2) message] The sy stem which generated this result transmitted reference range : 4.30 - 11.10 10*3/?L. The reference range was not used to interpret this result as normal/abnormal . RBC (test code = See_Comment [Automated 982-8) message] The sy stem which generated this [...] (test code = 53.7 fL 39-49.9 H 62530-3) RDW-CV (test code = 18.9 % 12-15.5 H 788-0) PLT (test code = See_Comment [Automated 777-3) message] The sy stem which generated this result transmitted reference range : 166 - 358 10*3/ ?L. The reference r jj was not used to interpret this result as normal/abnormal . MPV (test code = 9.2 fL 9.5-12.9 L 62688-4) NRBC/100 WBC (test See_Comment [Automat ed code = 2533123732) message] The system which generated this result transmitted reference range : 0.0 - 10.0 /100 WBCs. The refer ence range was not u sed to interpret th is result as normal/abnormal . NRBC x10^3 (test code <0.01 See_Comment [Auto mated = 9035448414) message] The s ystem which generated this result transmitted reference range : 10*3/?L. The reference range was not used to interpret this result as normal/abnormal . GRAN MAT (NEUT) % 55.6 % (test code = 770-8) IMM GRAN % (test code 0.70 % = 2762243439) LYMPH % (test code = 32.3 % 736-9) MONO % (test code = 7.8 % 5905-5) EOS % (test code = 3.3 % 713-8) BASO % (test code = 0.3 % 706-2) GRAN MAT x10^3(ANC) 5.48 10*3/uL 1.88-7.09 (test code = 9612048354) IMM GRAN x10^3 (test 0.07 10*3/uL 0-0.06 H code = 7266788720) LYMPH x10^3 (test code 3.18 10*3/uL 1.32-3.29 = 731-0) MONO x10^3 (test code 0.77 10*3/uL 0.33-0.92 = 742-7) EOS x10^3 (test code = 0.33 10*3/uL 0.03-0.39 711-2) BASO x10^3 (test code 0.03 10*3/uL 0.01-0.07 = 704-7) Lab Interpretation Abnormal (test code = 43451-4) [facility]ham[facility]inalysis2020-[facility]-28 03:28:00 Test Item Value Reference Range Interpretation Comments APPEARANCE (test code = Hazy Clear A 9130412417) COLOR (test code = Yellow Yellow 4870676123) PH (test code = 4.8-8.0 0279570751) SP GRAVITY (test code = 1.003-1.030 8173958492) GLU U QUAL (test code = Normal Normal 7816155426) BLOOD (test code = Negative Negative 9239976695) KETONES (test code = Negative Negative 0223889682) PROTEIN (test code = Negative Negative 2887-8) UROBILIN (test code = Normal Normal 4822152496) BILIRUBIN (test code = Negative Negative 5740711557) NITRITE (test code = Positive Negative A 7026545462) LEUK LISA (test code = 250/uL Negative A 9896665290) RBC/HPF (test code = See_Comment [Autom ated message] 6036098337) The system Stylyt generated this result transmitted ref erence range: 0 - 3 HP F. The reference range was not used to int erpret this result as normal/abnormal . WBC/HPF (test code = See_Comment H [Autom ated message] 2651860311) The system Stylyt generated this result transmitted ref erence range: 0 - 5 HP F. The reference range was not used to int erpret this result as normal/abnormal . BACTERIA (test code = Moderate Negative A 5069916625) SQ EPITH (test code = <1 HPF 8096664051) WBC CLUMPS (test code = <1 See_Comment [Au tomated message] 2541809864) The system Stylyt generated this result transmitted ref erence range: <=1 HPF. The reference range was not used to int erpret this result as normal/abnormal . TRANS EPI (test code = <1 See_Comment [Aut omated message] 4287382835) The system Stylyt generated this result transmitted ref erence range: <=1 HPF. The reference range was not used to int erpret this result as normal/abnormal . Lab Interpretation (test Abnormal code = 32396-4) [facility]ham[facility]roponin [id number] 00:38:00 Test Item Value Reference Range Interpretation Comments TROPONIN I (test <0.012 See_Comment [Automated code = 5315543961) message] The system which generated this result [...] ? Lab Interpretation Normal (test code = 52787-4) [facility]hamMagnesium Ygscc3085-34-11 23:17:00 Test Item Value Reference Range Interpretation Comments MAGNESIUM (test code = 1028543935) 1.6 mg/dL 1.7-2.4 L Lab Interpretation (test code = Abnormal 45212-1) [facility]hamPhosphorus Yzthn7922-39-81 23:17:00 Test Item Value Reference Range Interpretation Comments PHOSPHORUS (test code = 4720774007) 3.2 mg/dL 2.5-5 Lab Interpretation (test code = Normal 23935-6) [facility]hamThyroid Stimulating Hormone (TSH)2020-05-26 23:17:00 Test Item Value Reference Range Interpretation Comments TSH (test code = See_Comment Biotin has been 6634565125) reported to cau se a negative bias, interpret resul ts relative to dione marroquin's use of biotin. [Automated mess age] The system Stylyt generated this result transmitted ref erence range: 0.45 - 4 .70 mIU/L. The refe rence range was not u sed to interpret this result as normal/abnor mal. Lab Interpretation (test Normal code = 42128-9) [facility]hamGlycosylated Hemoglobin (A1C)2020-05-26 22:08:00 Test Item Value Reference Range Interpretation Comments HGB A1C (test code = 6.2 % 4-6 H 4548-4) GI (test code = GI) %A1C (NGSP) Interpretation (ADA)4.8-5.6 ? ? Normal or (Non-Diabetic Range)5.7-6.4 ? ? Increased Risk (Pre-Diabetic)>6.5 ?Diabetes Indicated Lab Interpretation Abnormal (test code = 70454-5) [facility]hamLipid Panel (Total Cholesterol, Triglycerides, HDL)2020-05-26 22:03:00 Test Item Value Reference Range Interpretation Comments CHOL (test code = 166 mg/dL 120-200 7326077013) HDL (test code = 41 mg/dL >50 L 2376507508) HDLC RATIO (test code = See_Comment [Au tomated message] 1584358417) The system Stylyt generated this result transmit elton reference range : <=4.5. The refe rence range was not u sed to interpret th is result as normal/abnormal . TRIG (test code = 195 mg/dL 30-170 H 8597224753) LDL CHOL (test code = 86 mg/dL See_Comment [Auto mated message] 64087-2) The system Stylyt generated this result transmit elton reference range : <=160. The refe rence range was not u sed to interpret th is result as normal/abnormal . VLDL (test code = 39 mg/dL 5-60 6163858415) Lab Interpretation (test Abnormal code = 29054-5) [facility] BrenhamD-THFMA7415-82-23 20:36:00 Test Item Value Reference Interpretation Comments Range D-DIMER (test code = See_Comment H [Autom ated 6711714596) message] The system which generated this result [...] diagnosis. Lab Interpretation Abnormal (test code = 38134-3) [facility] 1 Vojo6700-44-62 18:43:02HISTORY: Chest pain. TECHNIQUE: Portable AP erect view of the chest is obtained. No prior studyavailable for comparison. FINDINGS: No acute pneumonia. No pneumothorax or pleural effusion orpulmonary congestion detected. Mild cardiomegaly with left ventricularpreponderance noted. Tortuous brachiocephalic vessels suspected. CONCLUSIONS: No signs of acute cardiopulmonary disease.[facility], Radiant Results Inf t User - 05/26/2020 1:44 PM CDTHISTORY: Chest pain.TECHNIQUE: Portable AP erect view of the chest isobtained. No prior studyavailable for comparison.FINDINGS: No acute pneumonia. No pneumothorax or pleural effusion orpulmonary congestion detected. Mild cardiomegaly with left ventricularpreponderance noted. Tortuous brachiocephalic vessels suspected.CONCLUSIONS: No signs of acute cardiopulmonary disease.[facility] [id number] 18:42:00 Test Item Value Reference Range Interpretation Comments TROPONIN I (test <0.012 See_Comment [Automated code = 7697687251) message] The system which generated this result [...] ? Lab Interpretation Normal (test code = 13348-4) [facility]hamCOVID-19 (ID NOW RAPID TESTING)2020-05-26 18:39:00 Test Item Value Reference Range Interpretation Comments SARS-CoV-2 Rapid ID NOW Not Detected Not Detected (test code = 22865-0) GI (test code = GI) ID NOW COVID-19 Assay is an isothermal nucleic acid amplification test intended for the qualitative detection of nucleic acid from SARS-CoV-2 viral RNA in nasopharyngeal ([employer]ER) specimens. It is used under Emergency Use [...] indicated. Lab Interpretation Normal (test code = 32147-9) [facility] (NA, K, CL, CO2, GLUCOSE, BUN, CREATININE, CA)2020-05-26 18:31:00 Test Item Value Reference Range Interpretation Comments NA (test code = 138 mmol/L 135-145 8766163959) K (test code = 4.0 mmol/L 3.5-5 2262668407) CL (test code = 103 mmol/L 98-108 0847983931) CO2 TOTAL (test code = 29 mmol/L 23-31 1449714691) AGAP (test code = 2-16 8312474645) BUN (test code = 18 mg/dL 7-23 4157029950) GLUCOSE (test code = 112 mg/dL 70-110 H 6139183044) CREATININE (test code = 0.67 mg/dL 0.5-1.04 2257667922) CALCIUM (test code = 8.2 mg/dL 8.6-10.6 L 1441603788) eGFR Calculation mL/min/1.73m2 (Non-) (test code = 3637779656) eGFR Calculation mL/min/1.73m2 () (test code = 1845258577) GI (test code = GI) Association of [...] tests). Lab Interpretation Abnormal (test code = 03802-6) [facility]hamHepatic Function Panel (ALB, T.PRO, BILI T, BU/BC, ALT, AST, ALK PHOS)2020-05-26 18:31:00 Test Item Value Reference Range Interpretation Comments TOTAL BILI (test code = 7404657730) 0.5 mg/dL 0.1-1.1 BILI UNCON (test code = 0482338662) 0.4 mg/dL 0.1-1.1 BILI CONJ (test code = 9339785114) 0.0 mg/dL 0-0.3 T PROTEIN (test code = 3558903241) 6.5 g/dL 6.3-8.2 ALBUMIN (test code = 1122175271) 3.4 g/dL 3.5-5 L ALK PHOS (test code = 9505257165) 91 U/L 34-122 ALTv (test code = 1742-6) 12 U/L 5-35 AST(SGOT) (test code = 4694701422) 21 U/L 13-40 Lab Interpretation (test code = Abnormal 12560-2) [facility]hamLipase Ooqso3045-90-37 18:31:00 Test Item Value Reference Range Interpretation Comments LIPASE (test code = 9290562608) 108 U/L 0-220 Lab Interpretation (test code = Normal 74811-2) [facility] BrenhamaPTT2020-10-27 18:29:00 Test Item Value Reference Range Interpretation Comments APTT Patient (test See_Comment [Automat ed code = 3173-2) message] The system which generated this result transmitted reference range : 23 - 38 Seconds . The reference range was not used to interpr et this result as normal/abnormal . GI (test code = GI) The [facility] patient population mean normal value for aPTT is 30 seconds. Lab Interpretation Normal (test code = 27043-2) [facility]hamProthrombin Time (PT) / [id number] 18:27:00 Test Item Value Reference Range Interpretation [...] tions. Lab Interpretation (test Normal code = 41339-1) [facility] with Uyqmualtkjin1064-84-35 18:16:00 Test Item Value Reference Range Interpretation Comments WBC (test code = See_Comment [Automated 0890-2) message] The sy stem which generated this [...] (test code = 53.8 fL 39-49.9 H 05959-6) RDW-CV (test code = 18.7 % 12-15.5 H 788-0) PLT (test code = See_Comment [Automated 777-3) message] The sy stem which generated this result transmitted reference range : 166 - 358 10*3/ ?L. The reference r jj was not used to interpret this result as normal/abnormal . MPV (test code = 9.4 fL 9.5-12.9 L 54329-0) NRBC/100 WBC (test See_Comment [Automat ed code = 0915971798) message] The system which generated this result transmitted reference range : 0.0 - 10.0 /100 WBCs. The refer ence range was not u sed to interpret th is result as normal/abnormal . NRBC x10^3 (test code <0.01 See_Comment [Auto mated = 5111947066) message] The s ystem which generated this result transmitted reference range : 10*3/?L. The reference range was not used to interpret this result as normal/abnormal . GRAN MAT (NEUT) % 56.4 % (test code = 770-8) IMM GRAN % (test code 0.90 % = 0131078741) LYMPH % (test code = 31.2 % 736-9) MONO % (test code = 7.6 % 5905-5) EOS % (test code = 3.5 % 713-8) BASO % (test code = 0.4 % 706-2) GRAN MAT x10^3(ANC) 5.24 10*3/uL 1.88-7.09 (test code = 6383157436) IMM GRAN x10^3 (test 0.08 10*3/uL 0-0.06 H code = 6977829368) LYMPH x10^3 (test code 2.90 10*3/uL 1.32-3.29 = 731-0) MONO x10^3 (test code 0.71 10*3/uL 0.33-0.92 = 742-7) EOS x10^3 (test code = 0.33 10*3/uL 0.03-0.39 711-2) BASO x10^3 (test code 0.04 10*3/uL 0.01-0.07 = 704-7) Lab Interpretation Abnormal (test code = 43506-5) [facility]MATOLOGY2018-06-29 10:20:00 Test Item Value Reference Range Interpretation Comments RDW (test code = RDW) 16.9 11.5-14.5 [facility] LakeHtszqfgXDBVFXNOVJ1910-49-56 10:20:00 Test Item Value Reference Range Interpretation Comments Platelet (test code = Platelet) 207 133-450 [facility] LakeOvmzihhDNHQUHUYGX2346-43-05 10:20:00 Test Item Value Reference Range Interpretation Comments MPV (test code = MPV) 8.1 7.4-10.4 [facility] LakeGfowfveLQMOYVMDCR6362-19-99 10:20:00 Test Item Value Reference Range Interpretation Comments Lymphocytes # (test code = Lymphocytes 3.1 1.0-5.5 #) [facility] LakeZwffxkyOMXMSGCGPM3481-25-33 10:20:00 Test Item Value Reference Range Interpretation Comments Monocytes # (test code 1.1 See_Comment [Aut omated message] The = Monocytes #) system which generated this result tra nsmitted reference range : <=0.8. The reference r jj was not used to int erpret this result as normal/abnormal . [facility] LakeBstgikmRGUAUOQXOH9632-12-51 10:20:00 Test Item Value Reference Range Interpretation Comments Eosinophils # (test code 0.1 See_Comment [A utomated message] The = Eosinophils #) system whic h generated this result tra nsmitted reference range : <=0.5. The reference r jj was not used to int erpret this result as normal/abnormal . [facility] LakeEkcyifrIFCDHKVFFH4915-96-50 10:20:00 Test Item Value Reference Range Interpretation Comments Segs (test code = Segs) 60.2 45.0-75.0 [facility] LakeBcrpwpdJUCZORNOQC5073-03-14 10:20:00 Test Item Value Reference Range Interpretation Comments Lymphocytes (test code = Lymphocytes) 28.3 20.0-40.0 [facility] LakeAdomzzcXHACUTZDGR9410-49-99 10:20:00 Test Item Value Reference Range Interpretation Comments Monocytes (test code = Monocytes) 10.4 2.0-12.0 [facility] LakeEhbzumwUSABIBTYUV7773-21-61 10:20:00 Test Item Value Reference Range Interpretation Comments Eosinophils (test code = 1.0 See_Comment [A utomated message] The Eosinophils) system which ge nerated this result tra nsmitted reference range : <=4.0. The reference r jj was not used to int erpret this result as normal/abnormal . [facility] LakeUfexvicRWDNTDGPGE5067-41-41 10:20:00 Test Item Value Reference Range Interpretation Comments Basophils (test code = 0.1 See_Comment [Aut omated message] The Basophils) system which ge nerated this result tra nsmitted reference range : <=1.0. The reference r jj was not used to int erpret this result as normal/abnormal . [facility] LakeCgsfgsjHNCZWHEZFZ8655-16-77 10:20:00 Test Item Value Reference Range Interpretation Comments Segs-Bands # (test code = Segs-Bands #) 6.6 1.5-8.1 [facility]2018-06-29 10:20:00 Test Item Value Reference Range Interpretation Comments eGFR (test code = eGFR) 62 [facility]2018-06-29 10:20:00 Test Item Value Reference Range Interpretation Comments Calcium Lvl (test code = Calcium Lvl) 8.1 8.5-10.5 [facility]2018-06-29 10:20:00 Test Item Value Reference Range Interpretation Comments AGAP (test code = AGAP) 13.1 10.0-20.0 [facility]2018-06-29 10:20:00 Test Item Value Reference Range Interpretation Comments CO2 (test code = CO2) 26 24-32 [facility]2018-06-29 10:20:00 Test Item Value Reference Range Interpretation Comments Glucose Lvl (test code = Glucose Lvl) 94 70-99 [facility]2018-06-29 10:20:00 Test Item Value Reference Range Interpretation Comments Sodium Lvl (test code = Sodium Lvl) 144 135-145 [facility]2018-06-29 10:20:00 Test Item Value Reference Range Interpretation Comments Potassium Lvl (test code = Potassium 4.1 3.5-5.1 Lvl) [facility]2018-06-29 10:20:00 Test Item Value Reference Range Interpretation Comments Chloride Lvl (test code = Chloride Lvl) 109 95-109 [facility]2018-06-29 10:20:00 Test Item Value Reference Range Interpretation Comments BUN (test code = BUN) 17 7-22 [facility]2018-06-29 10:20:00 Test Item Value Reference Range Interpretation Comments Creatinine Lvl (test code = Creatinine 0.95 0.50-1.40 Lvl) [facility] LakeJxybabkZBEIBJTKBI7062-51-25 10:20:00 Test Item Value Reference Range Interpretation Comments WBC (test code = WBC) 10.9 3.7-10.4 [facility] LakeVbhhpyaZSYGUBFJNM6968-10-87 10:20:00 Test Item Value Reference Range Interpretation Comments RBC (test code = RBC) 3.29 4.20-5.40 [facility] LakeEkurymrTIPRXTGPFA5429-41-99 10:20:00 Test Item Value Reference Range Interpretation Comments Hgb (test code = Hgb) 8.9 12.0-16.0 [facility] LakeXcqvanbZPWTIYGQNH5936-21-92 10:20:00 Test Item Value Reference Range Interpretation Comments Hct (test code = Hct) 27.1 36.0-48.0 [facility] LakeLxnnncgHWQVDFYWJL8660-16-96 10:20:00 Test Item Value Reference Range Interpretation Comments MCV (test code = MCV) 82.4 80.0-98.0 [facility] LakeCbestezTSLQRKORJD1872-76-68 10:20:00 Test Item Value Reference Range Interpretation Comments MCH (test code = MCH) 27.1 pg 27.0-31.0 [facility] LakeMjkyjltXLHAAHYHZG9641-40-05 10:20:00 Test Item Value Reference Range Interpretation Comments MCHC (test code = MCHC) 32.9 32.0-36.0 [facility] LakeQuqvvqxILVICSFLNM6745-55-77 10:20:00 Test Item Value Reference Range Interpretation Comments Monocytes # (test code 1.1 See_Comment [Aut omated message] The = Monocytes #) system which generated this result tra nsmitted reference range : <=0.8. The reference r jj was not used to int erpret this result as normal/abnormal . [facility] LakeWnlaeuzMBVDQIYGPU5453-77-42 10:20:00 Test Item Value Reference Range Interpretation Comments Eosinophils # (test code 0.1 See_Comment [A utomated message] The = Eosinophils #) system whic h generated this result tra nsmitted reference range : <=0.5. The reference r jj was not used to int erpret this result as normal/abnormal . [facility] LakeZffzmmyCATABPDPPD3005-30-37 10:20:00 Test Item Value Reference Range Interpretation Comments Segs (test code = Segs) 60.2 45.0-75.0 [facility] LakeYfuqmogKESARMQZKC9322-92-88 10:20:00 Test Item Value Reference Range Interpretation Comments Lymphocytes (test code = Lymphocytes) 28.3 20.0-40.0 [facility] LakeVwrxkucFMWXVNTUDO3074-49-77 10:20:00 Test Item Value Reference Range Interpretation Comments Monocytes (test code = Monocytes) 10.4 2.0-12.0 [facility] LakeMhcrvkyGQIWMOPTQD4186-19-14 10:20:00 Test Item Value Reference Range Interpretation Comments Eosinophils (test code = 1.0 See_Comment [A utomated message] The Eosinophils) system which ge nerated this result tra nsmitted reference range : <=4.0. The reference r jj was not used to int erpret this result as normal/abnormal . [facility] LakeDeueimwBXPILAFEXU8819-82-25 10:20:00 Test Item Value Reference Range Interpretation Comments Basophils (test code = 0.1 See_Comment [Aut omated message] The Basophils) system which ge nerated this result tra nsmitted reference range : <=1.0. The reference r jj was not used to int erpret this result as normal/abnormal . [facility] LakeZbbxbnmJFRUCQLQCQ3239-38-56 10:20:00 Test Item Value Reference Range Interpretation Comments Segs-Bands # (test code = Segs-Bands #) 6.6 1.5-8.1 [facility]2018-06-29 10:20:00 Test Item Value Reference Range Interpretation Comments eGFR (test code = eGFR) 62 [facility]2018-06-29 10:20:00 Test Item Value Reference Range Interpretation Comments Calcium Lvl (test code = Calcium Lvl) 8.1 8.5-10.5 [facility]2018-06-29 10:20:00 Test Item Value Reference Range Interpretation Comments AGAP (test code = AGAP) 13.1 10.0-20.0 [facility]2018-06-29 10:20:00 Test Item Value Reference Range Interpretation Comments CO2 (test code = CO2) 26 24-32 [facility]2018-06-29 10:20:00 Test Item Value Reference Range Interpretation Comments Glucose Lvl (test code = Glucose Lvl) 94 70-99 [facility]2018-06-29 10:20:00 Test Item Value Reference Range Interpretation Comments Sodium Lvl (test code = Sodium Lvl) 144 135-145 [facility]2018-06-29 10:20:00 Test Item Value Reference Range Interpretation Comments Potassium Lvl (test code = Potassium 4.1 3.5-5.1 Lvl) [facility]2018-06-29 10:20:00 Test Item Value Reference Range Interpretation Comments Chloride Lvl (test code = Chloride Lvl) 109 95-109 [facility]2018-06-29 10:20:00 Test Item Value Reference Range Interpretation Comments BUN (test code = BUN) 17 7-22 [facility]2018-06-29 10:20:00 Test Item Value Reference Range Interpretation Comments Creatinine Lvl (test code = Creatinine 0.95 0.50-1.40 Lvl) [facility] LakeMesewzhHYGLGFPLKT2254-68-78 10:20:00 Test Item Value Reference Range Interpretation Comments WBC (test code = WBC) 10.9 3.7-10.4 [facility] LakeUkzklruELCHPMDQKW0990-35-18 10:20:00 Test Item Value Reference Range Interpretation Comments RBC (test code = RBC) 3.29 4.20-5.40 [facility] LakeGahyiahAKQJHOGEFG4538-31-40 10:20:00 Test Item Value Reference Range Interpretation Comments Hgb (test code = Hgb) 8.9 12.0-16.0 [facility] LakeSjbgdgiEOQHBVNIIV3578-12-00 10:20:00 Test Item Value Reference Range Interpretation Comments Hct (test code = Hct) 27.1 36.0-48.0 [facility] LakePitrwkrENBCBBTXYI6789-90-78 10:20:00 Test Item Value Reference Range Interpretation Comments MCV (test code = MCV) 82.4 80.0-98.0 [facility] LakeWvzznphYZBDDUUYKP4938-76-26 10:20:00 Test Item Value Reference Range Interpretation Comments MCH (test code = MCH) 27.1 pg 27.0-31.0 [facility] LakeAfaffmgMUZHJFGJWI7166-75-89 10:20:00 Test Item Value Reference Range Interpretation Comments MCHC (test code = MCHC) 32.9 32.0-36.0 [facility] LakeHobaimyRACVAPSQWI4093-20-50 10:20:00 Test Item Value Reference Range Interpretation Comments RDW (test code = RDW) 16.9 11.5-14.5 [facility] LakeHwjkjbpXSZTIAASVA8363-74-73 10:20:00 Test Item Value Reference Range Interpretation Comments Platelet (test code = Platelet) 207 133-450 [place] 845058-06-29 10:20:00 Test Item Value Reference Range Interpretation Comments MPV (test code = MPV) 8.1 7.4-10.4 [facility] LakeTjpyfrkSZNAQGSOOD7379-02-94 10:20:00 Test Item Value Reference Range Interpretation Comments Lymphocytes # (test code = Lymphocytes 3.1 1.0-5.5 #) [facility] LakeVpdxuqxCAOONDRJTD5036-19-92 10:20:00 Test Item Value Reference Range Interpretation Comments Monocytes # (test code 1.1 See_Comment [Aut omated message] The = Monocytes #) system which generated this result tra nsmitted reference range : <=0.8. The reference r jj was not used to int erpret this result as normal/abnormal . [facility] LakeVmmydarQKOYTOETUX2152-38-77 10:20:00 Test Item Value Reference Range Interpretation Comments Eosinophils # (test code 0.1 See_Comment [A utomated message] The = Eosinophils #) system whic h generated this result tra nsmitted reference range : <=0.5. The reference r jj was not used to int erpret this result as normal/abnormal . [facility] LakeLqipmuaNANJYOROBZ3781-97-20 10:20:00 Test Item Value Reference Range Interpretation Comments Segs (test code = Segs) 60.2 45.0-75.0 [facility] LakeVousdziMFWKWEFQSU3283-78-64 10:20:00 Test Item Value Reference Range Interpretation Comments Lymphocytes (test code = Lymphocytes) 28.3 20.0-40.0 [facility] LakeSnpufrmJKDSHSKPYG8704-80-03 10:20:00 Test Item Value Reference Range Interpretation Comments Monocytes (test code = Monocytes) 10.4 2.0-12.0 [facility] LakeKcqxhbsOSGJDUXMVU8470-54-18 10:20:00 Test Item Value Reference Range Interpretation Comments Eosinophils (test code = 1.0 See_Comment [A utomated message] The Eosinophils) system which ge nerated this result tra nsmitted reference range : <=4.0. The reference r jj was not used to int erpret this result as normal/abnormal . [facility] LakeRojzlekOEBAVIYOYL3021-00-65 10:20:00 Test Item Value Reference Range Interpretation Comments Basophils (test code = 0.1 See_Comment [Aut omated message] The Basophils) system which ge nerated this result tra nsmitted reference range : <=1.0. The reference r jj was not used to int erpret this result as normal/abnormal . [facility] LakeIvqdkkxNZPVMBCYCL1242-19-83 10:20:00 Test Item Value Reference Range Interpretation Comments Segs-Bands # (test code = Segs-Bands #) 6.6 1.5-8.1 [facility]2018-06-29 10:20:00 Test Item Value Reference Range Interpretation Comments eGFR (test code = eGFR) 62 [facility]2018-06-29 10:20:00 Test Item Value Reference Range Interpretation Comments Calcium Lvl (test code = Calcium Lvl) 8.1 8.5-10.5 [facility]2018-06-29 10:20:00 Test Item Value Reference Range Interpretation Comments AGAP (test code = AGAP) 13.1 10.0-20.0 [facility]2018-06-29 10:20:00 Test Item Value Reference Range Interpretation Comments CO2 (test code = CO2) 26 24-32 [facility]2018-06-29 10:20:00 Test Item Value Reference Range Interpretation Comments Glucose Lvl (test code = Glucose Lvl) 94 70-99 [facility]2018-06-29 10:20:00 Test Item Value Reference Range Interpretation Comments Sodium Lvl (test code = Sodium Lvl) 144 135-145 [facility]2018-06-29 10:20:00 Test Item Value Reference Range Interpretation Comments Potassium Lvl (test code = Potassium 4.1 3.5-5.1 Lvl) [facility]2018-06-29 10:20:00 Test Item Value Reference Range Interpretation Comments Chloride Lvl (test code = Chloride Lvl) 109 95-109 [facility]2018-06-29 10:20:00 Test Item Value Reference Range Interpretation Comments BUN (test code = BUN) 17 7-22 [facility]2018-06-29 10:20:00 Test Item Value Reference Range Interpretation Comments Creatinine Lvl (test code = Creatinine 0.95 0.50-1.40 Lvl) [facility] LakeIjbcvtoSHWHUEKCUB1213-11-58 10:20:00 Test Item Value Reference Range Interpretation Comments WBC (test code = WBC) 10.9 3.7-10.4 [facility] LakeZupsywiJQIJTOJWPC4219-56-96 10:20:00 Test Item Value Reference Range Interpretation Comments RBC (test code = RBC) 3.29 4.20-5.40 [facility] LakeFfvvrkhZOCMLCUELX0501-42-24 10:20:00 Test Item Value Reference Range Interpretation Comments Hgb (test code = Hgb) 8.9 12.0-16.0 [facility] LakeFvjtfuxVFGRVCAWTL2431-76-55 10:20:00 Test Item Value Reference Range Interpretation Comments Hct (test code = Hct) 27.1 36.0-48.0 [facility] LakeOofrcioOZYRKRHEEF4190-93-31 10:20:00 Test Item Value Reference Range Interpretation Comments MCV (test code = MCV) 82.4 80.0-98.0 [facility] LakeCfzpelhMTUXTZHDCD6160-82-17 10:20:00 Test Item Value Reference Range Interpretation Comments MCH (test code = MCH) 27.1 pg 27.0-31.0 [facility] LakeYvrdefnCEAGTODOCT5273-05-41 10:20:00 Test Item Value Reference Range Interpretation Comments MCHC (test code = MCHC) 32.9 32.0-36.0 [facility] LakeIlqpiofVHTSZQRHRI4221-15-04 10:20:00 Test Item Value Reference Range Interpretation Comments RDW (test code = RDW) 16.9 11.5-14.5 [facility] LakeZcccmjoFXBOOHSRUS8762-25-16 10:20:00 Test Item Value Reference Range Interpretation Comments Platelet (test code = Platelet) 207 133-450 [facility] LakeAwebbyiVAXEYWZKCG4943-27-43 10:20:00 Test Item Value Reference Range Interpretation Comments MPV (test code = MPV) 8.1 7.4-10.4 [facility] LakeCwxisamHAQZCLEELO8610-27-27 10:20:00 Test Item Value Reference Range Interpretation Comments Lymphocytes # (test code = Lymphocytes 3.1 1.0-5.5 #) [facility] LakeQsqauweAERUPMIGWE6319-85-22 10:20:00 Test Item Value Reference Range Interpretation Comments Monocytes # (test code 1.1 See_Comment [Aut omated message] The = Monocytes #) system which generated this result tra nsmitted reference range : <=0.8. The reference r jj was not used to int erpret this result as normal/abnormal . [facility] LakeUombqspMPTYQBDZGD9272-32-57 10:20:00 Test Item Value Reference Range Interpretation Comments Eosinophils # (test code 0.1 See_Comment [A utomated message] The = Eosinophils #) system whic h generated this result tra nsmitted reference range : <=0.5. The reference r jj was not used to int erpret this result as normal/abnormal . [facility] LakeUlvxjraXIDBMVXLPS9743-26-94 10:20:00 Test Item Value Reference Range Interpretation Comments Segs (test code = Segs) 60.2 45.0-75.0 [facility] LakeBxubpikPMZDJQYUZD1549-69-21 10:20:00 Test Item Value Reference Range Interpretation Comments Lymphocytes (test code = Lymphocytes) 28.3 20.0-40.0 [facility] LakeZtvfzvxDRTGMUANEG1649-00-00 10:20:00 Test Item Value Reference Range Interpretation Comments Monocytes (test code = Monocytes) 10.4 2.0-12.0 [facility] LakeUfpmypdSZKVEMYYHR6298-36-83 10:20:00 Test Item Value Reference Range Interpretation Comments Eosinophils (test code = 1.0 See_Comment [A utomated message] The Eosinophils) system which ge nerated this result tra nsmitted reference range : <=4.0. The reference r jj was not used to int erpret this result as normal/abnormal . [facility] LakeEudnbfvDPEAZTGTOU7396-97-02 10:20:00 Test Item Value Reference Range Interpretation Comments Basophils (test code = 0.1 See_Comment [Aut omated message] The Basophils) system which ge nerated this result tra nsmitted reference range : <=1.0. The reference r jj was not used to int erpret this result as normal/abnormal . [facility] LakeLbclfpiULMUVIKYFG9294-64-67 10:20:00 Test Item Value Reference Range Interpretation Comments Segs-Bands # (test code = Segs-Bands #) 6.6 1.5-8.1 [facility]2018-06-29 10:20:00 Test Item Value Reference Range Interpretation Comments eGFR (test code = eGFR) 62 [facility]2018-06-29 10:20:00 Test Item Value Reference Range Interpretation Comments Calcium Lvl (test code = Calcium Lvl) 8.1 8.5-10.5 [facility]2018-06-29 10:20:00 Test Item Value Reference Range Interpretation Comments AGAP (test code = AGAP) 13.1 10.0-20.0 [facility]2018-06-29 10:20:00 Test Item Value Reference Range Interpretation Comments CO2 (test code = CO2) 26 24-32 [facility]2018-06-29 10:20:00 Test Item Value Reference Range Interpretation Comments Glucose Lvl (test code = Glucose Lvl) 94 70-99 [facility]2018-06-29 10:20:00 Test Item Value Reference Range Interpretation Comments Sodium Lvl (test code = Sodium Lvl) 144 135-145 [facility]2018-06-29 10:20:00 Test Item Value Reference Range Interpretation Comments Potassium Lvl (test code = Potassium 4.1 3.5-5.1 Lvl) [facility]2018-06-29 10:20:00 Test Item Value Reference Range Interpretation Comments Chloride Lvl (test code = Chloride Lvl) 109 95-109 [facility]2018-06-29 10:20:00 Test Item Value Reference Range Interpretation Comments BUN (test code = BUN) 17 7-22 [facility]2018-06-29 10:20:00 Test Item Value Reference Range Interpretation Comments Creatinine Lvl (test code = Creatinine 0.95 0.50-1.40 Lvl) [facility] LakeMathmljRACZFBTUCW6523-15-63 10:20:00 Test Item Value Reference Range Interpretation Comments WBC (test code = WBC) 10.9 3.7-10.4 [facility] LakeJlzmxszQZBSKEBBHE5989-44-19 10:20:00 Test Item Value Reference Range Interpretation Comments RBC (test code = RBC) 3.29 4.20-5.40 [facility] LakeRwrderdKLDQGWBFHK1121-57-77 10:20:00 Test Item Value Reference Range Interpretation Comments Hgb (test code = Hgb) 8.9 12.0-16.0 [facility] LakeRskuexaKSQKSOAIDY4758-74-52 10:20:00 Test Item Value Reference Range Interpretation Comments Hct (test code = Hct) 27.1 36.0-48.0 [facility] LakeAouiytjFRCLUZSUSK8848-84-23 10:20:00 Test Item Value Reference Range Interpretation Comments MCV (test code = MCV) 82.4 80.0-98.0 [place] 845058-06-29 10:20:00 Test Item Value Reference Range Interpretation Comments MCH (test code = MCH) 27.1 pg 27.0-31.0 [facility] LakeRayxoinUQHSOACLJY5365-74-68 10:20:00 Test Item Value Reference Range Interpretation Comments MCHC (test code = MCHC) 32.9 32.0-36.0 [facility] LakeCxjssvtGKERPCJIPH9370-91-67 10:20:00 Test Item Value Reference Range Interpretation Comments RDW (test code = RDW) 16.9 11.5-14.5 [facility] LakeKwxqxxhOYOCUYRVFJ1351-51-60 10:20:00 Test Item Value Reference Range Interpretation Comments Platelet (test code = Platelet) 207 133-450 [facility] LakeWiqavatQEIHNBVNAX1398-59-02 10:20:00 Test Item Value Reference Range Interpretation Comments MPV (test code = MPV) 8.1 7.4-10.4 [facility] LakeJnxyvmzXQWMSHUQQF9817-66-34 10:20:00 Test Item Value Reference Range Interpretation Comments Lymphocytes # (test code = Lymphocytes 3.1 1.0-5.5 #) [facility] LakeRcuezedYGNOFOLLFH0173-22-87 10:20:00 Test Item Value Reference Range Interpretation Comments Monocytes # (test code 1.1 See_Comment [Aut omated message] The = Monocytes #) system which generated this result tra nsmitted reference range : <=0.8. The reference r jj was not used to int erpret this result as normal/abnormal . [facility] LakeIqzslnzENQTBRUBLV4416-09-80 10:20:00 Test Item Value Reference Range Interpretation Comments Eosinophils # (test code 0.1 See_Comment [A utomated message] The = Eosinophils #) system whic h generated this result tra nsmitted reference range : <=0.5. The reference r jj was not used to int erpret this result as normal/abnormal . [facility] LakeCfvbfznVRBNTLVWGM8823-03-85 10:20:00 Test Item Value Reference Range Interpretation Comments Segs (test code = Segs) 60.2 45.0-75.0 [facility] LakeVmbglopPFRDVVJXRT3638-78-55 10:20:00 Test Item Value Reference Range Interpretation Comments Lymphocytes (test code = Lymphocytes) 28.3 20.0-40.0 [facility] LakeXsxizdfZXRNGOGNIR2377-07-09 10:20:00 Test Item Value Reference Range Interpretation Comments Monocytes (test code = Monocytes) 10.4 2.0-12.0 [facility] LakeYcnobccCWBQKKNOHD2638-62-33 10:20:00 Test Item Value Reference Range Interpretation Comments Eosinophils (test code = 1.0 See_Comment [A utomated message] The Eosinophils) system which ge nerated this result tra nsmitted reference range : <=4.0. The reference r jj was not used to int erpret this result as normal/abnormal . [facility] LakeKcoopxfEZINWDXKCX7586-38-85 10:20:00 Test Item Value Reference Range Interpretation Comments Basophils (test code = 0.1 See_Comment [Aut omated message] The Basophils) system which ge nerated this result tra nsmitted reference range : <=1.0. The reference r jj was not used to int erpret this result as normal/abnormal . [facility] LakeRwbjihfTBULBQAOSO0101-81-74 10:20:00 Test Item Value Reference Range Interpretation Comments Segs-Bands # (test code = Segs-Bands #) 6.6 1.5-8.1 [facility]2018-06-29 10:20:00 Test Item Value Reference Range Interpretation Comments eGFR (test code = eGFR) 62 [facility]2018-06-29 10:20:00 Test Item Value Reference Range Interpretation Comments Calcium Lvl (test code = Calcium Lvl) 8.1 8.5-10.5 [facility]2018-06-29 10:20:00 Test Item Value Reference Range Interpretation Comments AGAP (test code = AGAP) 13.1 10.0-20.0 [facility]2018-06-29 10:20:00 Test Item Value Reference Range Interpretation Comments CO2 (test code = CO2) 26 24-32 [facility]2018-06-29 10:20:00 Test Item Value Reference Range Interpretation Comments Glucose Lvl (test code = Glucose Lvl) 94 70-99 [facility]2018-06-29 10:20:00 Test Item Value Reference Range Interpretation Comments Sodium Lvl (test code = Sodium Lvl) 144 135-145 [facility]2018-06-29 10:20:00 Test Item Value Reference Range Interpretation Comments Potassium Lvl (test code = Potassium 4.1 3.5-5.1 Lvl) [facility]2018-06-29 10:20:00 Test Item Value Reference Range Interpretation Comments Chloride Lvl (test code = Chloride Lvl) 109 95-109 [facility]2018-06-29 10:20:00 Test Item Value Reference Range Interpretation Comments BUN (test code = BUN) 17 7-22 [facility]2018-06-29 10:20:00 Test Item Value Reference Range Interpretation Comments Creatinine Lvl (test code = Creatinine 0.95 0.50-1.40 Lvl) [facility] LakeTuzdbjfQCGYHTJHWT3515-73-58 10:20:00 Test Item Value Reference Range Interpretation Comments WBC (test code = WBC) 10.9 3.7-10.4 [facility] LakeRavlsxkFJGMYBHAQR2555-44-67 10:20:00 Test Item Value Reference Range Interpretation Comments RBC (test code = RBC) 3.29 4.20-5.40 [facility] LakeBhztputMCLGLZWPOL4443-82-55 10:20:00 Test Item Value Reference Range Interpretation Comments Hgb (test code = Hgb) 8.9 12.0-16.0 [facility] LakeCdfowbsNIBFCTVCYO4059-31-32 10:20:00 Test Item Value Reference Range Interpretation Comments Hct (test code = Hct) 27.1 36.0-48.0 [facility] LakePijomgnPBGAAYXTJL6606-46-72 10:20:00 Test Item Value Reference Range Interpretation Comments MCV (test code = MCV) 82.4 80.0-98.0 [facility] LakeIunvkyfYLWJBRHZIC0507-87-94 10:20:00 Test Item Value Reference Range Interpretation Comments MCH (test code = MCH) 27.1 pg 27.0-31.0 [facility] LakeZmaelpnJJAJMKLICZ1234-02-68 10:20:00 Test Item Value Reference Range Interpretation Comments MCHC (test code = MCHC) 32.9 32.0-36.0 [facility] LakeSvkreuhKXQDGNOEJK9818-64-13 10:20:00 Test Item Value Reference Range Interpretation Comments RDW (test code = RDW) 16.9 11.5-14.5 [facility] LakeJfivjrxMWBAZCUGWQ4754-19-70 10:20:00 Test Item Value Reference Range Interpretation Comments Platelet (test code = Platelet) 207 133-450 [facility] LakeZkyagetULRKUXGRZA9631-84-90 10:20:00 Test Item Value Reference Range Interpretation Comments MPV (test code = MPV) 8.1 7.4-10.4 [facility] LakeVeervajCIPEYFHOSK1491-87-37 10:20:00 Test Item Value Reference Range Interpretation Comments Lymphocytes # (test code = Lymphocytes 3.1 1.0-5.5 #) [facility]2018-06-28 11:20:00 Test Item Value Reference Range Interpretation Comments eGFR (test code = eGFR) 46 [facility]2018-06-28 11:20:00 Test Item Value Reference Range Interpretation Comments Chloride Lvl (test code = Chloride Lvl) 106 95-109 [facility]2018-06-28 11:20:00 Test Item Value Reference Range Interpretation Comments Sodium Lvl (test code = Sodium Lvl) 142 135-145 [facility]2018-06-28 11:20:00 Test Item Value Reference Range Interpretation Comments CO2 (test code = CO2) 23 24-32 [facility]2018-06-28 11:20:00 Test Item Value Reference Range Interpretation Comments Potassium Lvl (test code = Potassium 4.0 3.5-5.1 Lvl) [facility]2018-06-28 11:20:00 Test Item Value Reference Range Interpretation Comments Calcium Lvl (test code = Calcium Lvl) 8.6 8.5-10.5 [facility]2018-06-28 11:20:00 Test Item Value Reference Range Interpretation Comments Glucose Lvl (test code = Glucose Lvl) 141 70-99 [facility]2018-06-28 11:20:00 Test Item Value Reference Range Interpretation Comments Creatinine Lvl (test code = Creatinine 1.22 0.50-1.40 Lvl) [facility]2018-06-28 11:20:00 Test Item Value Reference Range Interpretation Comments BUN (test code = BUN) 17 7-22 [facility]2018-06-28 11:20:00 Test Item Value Reference Range Interpretation Comments AGAP (test code = AGAP) 17.0 10.0-20.0 [facility] [place]MAWCULYWZF5760-22-12 11:20:00 Test Item Value Reference Range Interpretation Comments Monocytes # (test code 1.5 See_Comment [Aut omated message] The = Monocytes #) system which generated this result tra nsmitted reference range : <=0.8. The reference r jj was not used to int erpret this result as normal/abnormal . [facility] LakeTsqnpxwYVJCGANIUR2027-39-42 11:20:00 Test Item Value Reference Range Interpretation Comments Lymphocytes # (test code = Lymphocytes 1.4 1.0-5.5 #) [facility] LakeJhkxsbiMCWEJKAULM9626-62-07 11:20:00 Test Item Value Reference Range Interpretation Comments Segs-Bands # (test code = Segs-Bands #) 13.5 1.5-8.1 [facility] LakeYqadrqsOOQEMHGGRK2052-00-52 11:20:00 Test Item Value Reference Range Interpretation Comments Basophils (test code = 0.1 See_Comment [Aut omated message] The Basophils) system which ge nerated this result tra nsmitted reference range : <=1.0. The reference r jj was not used to int erpret this result as normal/abnormal . [facility] LakeDeelronARJHGIYUBE2556-33-96 11:20:00 Test Item Value Reference Range Interpretation Comments Segs (test code = Segs) 82.1 45.0-75.0 [facility] LakeNciqdgiXISDEXPXCE4445-11-91 11:20:00 Test Item Value Reference Range Interpretation Comments Monocytes (test code = Monocytes) 9.3 2.0-12.0 [facility] LakeAhpopzoQNXHWLRPFX4865-58-54 11:20:00 Test Item Value Reference Range Interpretation Comments Lymphocytes (test code = Lymphocytes) 8.5 20.0-40.0 [facility] LakeVxdalulHIXCRZXFPU6436-21-86 11:20:00 Test Item Value Reference Range Interpretation Comments RDW (test code = RDW) 16.2 11.5-14.5 [facility] LakeDizflwwZVUICJSJAL2186-08-97 11:20:00 Test Item Value Reference Range Interpretation Comments MPV (test code = MPV) 8.3 7.4-10.4 [facility] LakePhxcnzeLZLEMRHCVI9038-26-37 11:20:00 Test Item Value Reference Range Interpretation Comments Platelet (test code = Platelet) 262 133-450 [facility] LakeDggepezYIESRVZMMU7048-25-06 11:20:00 Test Item Value Reference Range Interpretation Comments Hgb (test code = Hgb) 10.9 12.0-16.0 [facility] LakeMwxpbbrSUNDHLYQKL3719-47-76 11:20:00 Test Item Value Reference Range Interpretation Comments MCH (test code = MCH) 27.4 pg 27.0-31.0 [facility] LakePqpxetuVQHSQLAJYY9758-98-37 11:20:00 Test Item Value Reference Range Interpretation Comments Hct (test code = Hct) 32.5 36.0-48.0 [facility] LakeLcghwjeDDGGELOGYA1323-18-06 11:20:00 Test Item Value Reference Range Interpretation Comments MCV (test code = MCV) 81.7 80.0-98.0 [facility] LakeXwplmreZYFXXTBKWQ3517-98-61 11:20:00 Test Item Value Reference Range Interpretation Comments MCHC (test code = MCHC) 33.5 32.0-36.0 [facility] LakeUmrjdkxEINWHGDSMV8680-41-70 11:20:00 Test Item Value Reference Range Interpretation Comments RBC (test code = RBC) 3.98 4.20-5.40 [facility] LakeXwivhuiIBHDHNYTDN1510-88-76 11:20:00 Test Item Value Reference Range Interpretation Comments WBC (test code = WBC) 16.4 3.7-10.4 [facility]2018-06-28 11:20:00 Test Item Value Reference Range Interpretation Comments eGFR (test code = eGFR) 46 [facility]2018-06-28 11:20:00 Test Item Value Reference Range Interpretation Comments Chloride Lvl (test code = Chloride Lvl) 106 95-109 [facility]2018-06-28 11:20:00 Test Item Value Reference Range Interpretation Comments Sodium Lvl (test code = Sodium Lvl) 142 135-145 [facility]2018-06-28 11:20:00 Test Item Value Reference Range Interpretation Comments CO2 (test code = CO2) 23 24-32 [facility]2018-06-28 11:20:00 Test Item Value Reference Range Interpretation Comments Potassium Lvl (test code = Potassium 4.0 3.5-5.1 Lvl) [facility]2018-06-28 11:20:00 Test Item Value Reference Range Interpretation Comments Calcium Lvl (test code = Calcium Lvl) 8.6 8.5-10.5 [facility]2018-06-28 11:20:00 Test Item Value Reference Range Interpretation Comments Glucose Lvl (test code = Glucose Lvl) 141 70-99 [facility]2018-06-28 11:20:00 Test Item Value Reference Range Interpretation Comments Creatinine Lvl (test code = Creatinine 1.22 0.50-1.40 Lvl) [facility]2018-06-28 11:20:00 Test Item Value Reference Range Interpretation Comments BUN (test code = BUN) 17 7-22 [facility]2018-06-28 11:20:00 Test Item Value Reference Range Interpretation Comments AGAP (test code = AGAP) 17.0 10.0-20.0 [facility] LakeEnkvxwjIAWRWOFJAG1217-26-03 11:20:00 Test Item Value Reference Range Interpretation Comments Monocytes # (test code 1.5 See_Comment [Aut omated message] The = Monocytes #) system which generated this result tra nsmitted reference range : <=0.8. The reference r jj was not used to int erpret this result as normal/abnormal . [facility] LakeMhjpqbmKHLQBMVKZY2527-98-39 11:20:00 Test Item Value Reference Range Interpretation Comments Lymphocytes # (test code = Lymphocytes 1.4 1.0-5.5 #) [facility] LakeEfsezlgQNCWWHESWZ7344-17-30 11:20:00 Test Item Value Reference Range Interpretation Comments Segs-Bands # (test code = Segs-Bands #) 13.5 1.5-8.1 [facility] LakeGspphtuCRTVCJQFDR9657-63-99 11:20:00 Test Item Value Reference Range Interpretation Comments Basophils (test code = 0.1 See_Comment [Aut omated message] The Basophils) system which ge nerated this result tra nsmitted reference range : <=1.0. The reference r jj was not used to int erpret this result as normal/abnormal . [facility] LakeAjtjezzIXCCQHLBJV0126-43-02 11:20:00 Test Item Value Reference Range Interpretation Comments Segs (test code = Segs) 82.1 45.0-75.0 [facility] LakeVrlqxzdMBUCQTRWQQ2216-30-97 11:20:00 Test Item Value Reference Range Interpretation Comments Monocytes (test code = Monocytes) 9.3 2.0-12.0 [facility] LakeYnunrdfKHXRMEFZAP1984-46-74 11:20:00 Test Item Value Reference Range Interpretation Comments Lymphocytes (test code = Lymphocytes) 8.5 20.0-40.0 [place]5058-06-28 11:20:00 Test Item Value Reference Range Interpretation Comments RDW (test code = RDW) 16.2 11.5-14.5 [facility] LakeHtzjldaUOXZMEZKGH5084-21-20 11:20:00 Test Item Value Reference Range Interpretation Comments MPV (test code = MPV) 8.3 7.4-10.4 [facility] LakeZzpoonqQOOCVAZDYC1655-39-36 11:20:00 Test Item Value Reference Range Interpretation Comments Platelet (test code = Platelet) 262 133-450 [facility] LakeAcsxzjdKPQVMZXIBW7152-12-14 11:20:00 Test Item Value Reference Range Interpretation Comments Hgb (test code = Hgb) 10.9 12.0-16.0 [facility] LakeNkdpotjWPOPEGYEKW0748-48-74 11:20:00 Test Item Value Reference Range Interpretation Comments MCH (test code = MCH) 27.4 pg 27.0-31.0 [facility] LakeVjgopxcOQUWEVKHER1376-10-14 11:20:00 Test Item Value Reference Range Interpretation Comments Hct (test code = Hct) 32.5 36.0-48.0 [facility] LakeWimgvziAXORPRMRAP9785-15-28 11:20:00 Test Item Value Reference Range Interpretation Comments MCV (test code = MCV) 81.7 80.0-98.0 [facility] LakeFanagrdFOIAHXATQI3371-69-33 11:20:00 Test Item Value Reference Range Interpretation Comments MCHC (test code = MCHC) 33.5 32.0-36.0 [facility] LakeWmiafbiRUYLQDYFKN1307-11-39 11:20:00 Test Item Value Reference Range Interpretation Comments RBC (test code = RBC) 3.98 4.20-5.40 [facility] LakeCivwjgoLYFIZZJBMF3080-85-76 11:20:00 Test Item Value Reference Range Interpretation Comments WBC (test code = WBC) 16.4 3.7-10.4 [facility]2018-06-28 11:20:00 Test Item Value Reference Range Interpretation Comments eGFR (test code = eGFR) 46 [facility]2018-06-28 11:20:00 Test Item Value Reference Range Interpretation Comments Chloride Lvl (test code = Chloride Lvl) 106 95-109 [facility]2018-06-28 11:20:00 Test Item Value Reference Range Interpretation Comments Sodium Lvl (test code = Sodium Lvl) 142 135-145 [facility]2018-06-28 11:20:00 Test Item Value Reference Range Interpretation Comments CO2 (test code = CO2) 23 24-32 [facility]2018-06-28 11:20:00 Test Item Value Reference Range Interpretation Comments Potassium Lvl (test code = Potassium 4.0 3.5-5.1 Lvl) [facility]2018-06-28 11:20:00 Test Item Value Reference Range Interpretation Comments Calcium Lvl (test code = Calcium Lvl) 8.6 8.5-10.5 [facility]2018-06-28 11:20:00 Test Item Value Reference Range Interpretation Comments Glucose Lvl (test code = Glucose Lvl) 141 70-99 [facility]2018-06-28 11:20:00 Test Item Value Reference Range Interpretation Comments Creatinine Lvl (test code = Creatinine 1.22 0.50-1.40 Lvl) [facility]2018-06-28 11:20:00 Test Item Value Reference Range Interpretation Comments BUN (test code = BUN) 17 7-22 [facility]2018-06-28 11:20:00 Test Item Value Reference Range Interpretation Comments AGAP (test code = AGAP) 17.0 10.0-20.0 [facility] LakeXeppbugAPFAGUMITA3511-33-16 11:20:00 Test Item Value Reference Range Interpretation Comments Monocytes # (test code 1.5 See_Comment [Aut omated message] The = Monocytes #) system which generated this result tra nsmitted reference range : <=0.8. The reference r jj was not used to int erpret this result as normal/abnormal . [facility] LakeFxseoqiLLTEKBVNBG9523-68-97 11:20:00 Test Item Value Reference Range Interpretation Comments Lymphocytes # (test code = Lymphocytes 1.4 1.0-5.5 #) [facility] LakeZsghhsnZNGFINWSPJ5614-35-99 11:20:00 Test Item Value Reference Range Interpretation Comments Segs-Bands # (test code = Segs-Bands #) 13.5 1.5-8.1 [facility] LakeLqjzvirFEZITYIRNR3643-78-69 11:20:00 Test Item Value Reference Range Interpretation Comments Basophils (test code = 0.1 See_Comment [Aut omated message] The Basophils) system which ge nerated this result tra nsmitted reference range : <=1.0. The reference r jj was not used to int erpret this result as normal/abnormal . [facility] LakeRnkliwwOIXHHNEDCM4169-24-25 11:20:00 Test Item Value Reference Range Interpretation Comments Segs (test code = Segs) 82.1 45.0-75.0 [facility] LakeMhejisiXIXFBISNZA3788-37-61 11:20:00 Test Item Value Reference Range Interpretation Comments Monocytes (test code = Monocytes) 9.3 2.0-12.0 [facility] LakeDthqsyxOPXLMNJQEZ2085-76-09 11:20:00 Test Item Value Reference Range Interpretation Comments Lymphocytes (test code = Lymphocytes) 8.5 20.0-40.0 [facility] LakeMzcpywxIRFQCWEQQB4914-52-45 11:20:00 Test Item Value Reference Range Interpretation Comments RDW (test code = RDW) 16.2 11.5-14.5 [facility] LakeOnoyjxdOWSZQIARIQ0881-99-06 11:20:00 Test Item Value Reference Range Interpretation Comments MPV (test code = MPV) 8.3 7.4-10.4 [facility] LakeRvqyofdFRVTSOHJBV4146-22-42 11:20:00 Test Item Value Reference Range Interpretation Comments Platelet (test code = Platelet) 262 133-450 [facility] LakeGscrnxmDRDUOCMDDK4939-12-53 11:20:00 Test Item Value Reference Range Interpretation Comments Hgb (test code = Hgb) 10.9 12.0-16.0 [facility] LakeDgostodXGZLRXNKZK5349-34-42 11:20:00 Test Item Value Reference Range Interpretation Comments MCH (test code = MCH) 27.4 pg 27.0-31.0 [facility] LakeNszbszsOCRERMYYCY7406-26-13 11:20:00 Test Item Value Reference Range Interpretation Comments Hct (test code = Hct) 32.5 36.0-48.0 [facility] LakeUthlwteKSOITSCVJG3290-93-33 11:20:00 Test Item Value Reference Range Interpretation Comments MCV (test code = MCV) 81.7 80.0-98.0 [facility] LakeRitompoYCNTKTDUWL4927-19-15 11:20:00 Test Item Value Reference Range Interpretation Comments MCHC (test code = MCHC) 33.5 32.0-36.0 [facility] LakeEwhukopMTOFYOIUEV6032-91-77 11:20:00 Test Item Value Reference Range Interpretation Comments RBC (test code = RBC) 3.98 4.20-5.40 [facility] LakePbqkciyEFVDMSISHF8372-42-98 11:20:00 Test Item Value Reference Range Interpretation Comments WBC (test code = WBC) 16.4 3.7-10.4 [facility]2018-06-28 11:20:00 Test Item Value Reference Range Interpretation Comments eGFR (test code = eGFR) 46 [facility]2018-06-28 11:20:00 Test Item Value Reference Range Interpretation Comments Chloride Lvl (test code = Chloride Lvl) 106 95-109 [facility]2018-06-28 11:20:00 Test Item Value Reference Range Interpretation Comments Sodium Lvl (test code = Sodium Lvl) 142 135-145 [facility]2018-06-28 11:20:00 Test Item Value Reference Range Interpretation Comments CO2 (test code = CO2) 23 24-32 [facility]2018-06-28 11:20:00 Test Item Value Reference Range Interpretation Comments Potassium Lvl (test code = Potassium 4.0 3.5-5.1 Lvl) [facility]2018-06-28 11:20:00 Test Item Value Reference Range Interpretation Comments Calcium Lvl (test code = Calcium Lvl) 8.6 8.5-10.5 [facility]2018-06-28 11:20:00 Test Item Value Reference Range Interpretation Comments Glucose Lvl (test code = Glucose Lvl) 141 70-99 [facility]2018-06-28 11:20:00 Test Item Value Reference Range Interpretation Comments Creatinine Lvl (test code = Creatinine 1.22 0.50-1.40 Lvl) [facility]2018-06-28 11:20:00 Test Item Value Reference Range Interpretation Comments BUN (test code = BUN) 17 7-22 [facility]2018-06-28 11:20:00 Test Item Value Reference Range Interpretation Comments AGAP (test code = AGAP) 17.0 10.0-20.0 [facility] LakeDhamxmwWDUJCKSFKM1277-94-91 11:20:00 Test Item Value Reference Range Interpretation Comments Monocytes # (test code 1.5 See_Comment [Aut omated message] The = Monocytes #) system which generated this result tra nsmitted reference range : <=0.8. The reference r jj was not used to int erpret this result as normal/abnormal . [facility] LakeYkqlumjBUUQJTVJPJ4379-90-66 11:20:00 Test Item Value Reference Range Interpretation Comments Lymphocytes # (test code = Lymphocytes 1.4 1.0-5.5 #) [facility] LakeKgvarjcUKIMZGJZZR6348-88-09 11:20:00 Test Item Value Reference Range Interpretation Comments Segs-Bands # (test code = Segs-Bands #) 13.5 1.5-8.1 [facility] LakeEgyqupfXZOFXMBZVT5845-78-07 11:20:00 Test Item Value Reference Range Interpretation Comments Basophils (test code = 0.1 See_Comment [Aut omated message] The Basophils) system which ge nerated this result tra nsmitted reference range : <=1.0. The reference r jj was not used to int erpret this result as normal/abnormal . [facility] LakeFxmveocZZGAFKXEWE3590-49-44 11:20:00 Test Item Value Reference Range Interpretation Comments Segs (test code = Segs) 82.1 45.0-75.0 [facility] LakeNwtbfyeHRSBAVZLKW5961-38-16 11:20:00 Test Item Value Reference Range Interpretation Comments Monocytes (test code = Monocytes) 9.3 2.0-12.0 [facility] LakeQqnesqpAMLDRZHSUW4102-67-01 11:20:00 Test Item Value Reference Range Interpretation Comments Lymphocytes (test code = Lymphocytes) 8.5 20.0-40.0 [facility] LakeBipltljAEPCXNXAQZ6671-37-17 11:20:00 Test Item Value Reference Range Interpretation Comments RDW (test code = RDW) 16.2 11.5-14.5 [facility] LakeUvwdggzPMWXOKLABW7305-67-96 11:20:00 Test Item Value Reference Range Interpretation Comments MPV (test code = MPV) 8.3 7.4-10.4 [facility] LakeXmmklrxZBFQDLOCLV3670-09-84 11:20:00 Test Item Value Reference Range Interpretation Comments Platelet (test code = Platelet) 262 133-450 [facility] LakeLxefmoyAZPBNPQXFZ7203-06-80 11:20:00 Test Item Value Reference Range Interpretation Comments Hgb (test code = Hgb) 10.9 12.0-16.0 [facility] LakeGdzjfkoZLZMILPEID4002-42-06 11:20:00 Test Item Value Reference Range Interpretation Comments MCH (test code = MCH) 27.4 pg 27.0-31.0 [facility] LakeLrpyidwLFYAVBBHSI6921-50-75 11:20:00 Test Item Value Reference Range Interpretation Comments Hct (test code = Hct) 32.5 36.0-48.0 [facility] LakeLxwfjmaNFGHAKPLCC8056-42-72 11:20:00 Test Item Value Reference Range Interpretation Comments MCV (test code = MCV) 81.7 80.0-98.0 [facility] LakeKjizcgpVQWUTSIKOK0255-14-00 11:20:00 Test Item Value Reference Range Interpretation Comments MCHC (test code = MCHC) 33.5 32.0-36.0 [facility] LakeLhaxifyVRMGDWJFIL1657-61-36 11:20:00 Test Item Value Reference Range Interpretation Comments RBC (test code = RBC) 3.98 4.20-5.40 [facility] LakeDpoqwwlMLNTXHEFFR2411-16-40 11:20:00 Test Item Value Reference Range Interpretation Comments WBC (test code = WBC) 16.4 3.7-10.4 [facility]2018-06-28 11:20:00 Test Item Value Reference Range Interpretation Comments eGFR (test code = eGFR) 46 [facility]2018-06-28 11:20:00 Test Item Value Reference Range Interpretation Comments Chloride Lvl (test code = Chloride Lvl) 106 95-109 [facility]2018-06-28 11:20:00 Test Item Value Reference Range Interpretation Comments Sodium Lvl (test code = Sodium Lvl) 142 135-145 [facility]2018-06-28 11:20:00 Test Item Value Reference Range Interpretation Comments CO2 (test code = CO2) 23 24-32 [facility]2018-06-28 11:20:00 Test Item Value Reference Range Interpretation Comments Potassium Lvl (test code = Potassium 4.0 3.5-5.1 Lvl) [facility]2018-06-28 11:20:00 Test Item Value Reference Range Interpretation Comments Calcium Lvl (test code = Calcium Lvl) 8.6 8.5-10.5 [facility]2018-06-28 11:20:00 Test Item Value Reference Range Interpretation Comments Glucose Lvl (test code = Glucose Lvl) 141 70-99 [facility]2018-06-28 11:20:00 Test Item Value Reference Range Interpretation Comments Creatinine Lvl (test code = Creatinine 1.22 0.50-1.40 Lvl) [facility]2018-06-28 11:20:00 Test Item Value Reference Range Interpretation Comments BUN (test code = BUN) 17 7-22 [facility]2018-06-28 11:20:00 Test Item Value Reference Range Interpretation Comments AGAP (test code = AGAP) 17.0 10.0-20.0 [facility] LakeCprfvjbMLFIWXMCSC1209-63-51 11:20:00 Test Item Value Reference Range Interpretation Comments Monocytes # (test code 1.5 See_Comment [Aut omated message] The = Monocytes #) system which generated this result tra nsmitted reference range : <=0.8. The reference r jj was not used to int erpret this result as normal/abnormal . [facility] LakeXtvykpbOBPZZSHGCF6523-41-52 11:20:00 Test Item Value Reference Range Interpretation Comments Lymphocytes # (test code = Lymphocytes 1.4 1.0-5.5 #) [facility] LakeCufrpbyIRDKFNWQVC5717-05-31 11:20:00 Test Item Value Reference Range Interpretation Comments Segs-Bands # (test code = Segs-Bands #) 13.5 1.5-8.1 [facility] LakeHluqwvfXTPDYOJLBE3156-87-02 11:20:00 Test Item Value Reference Range Interpretation Comments Basophils (test code = 0.1 See_Comment [Aut omated message] The Basophils) system which ge nerated this result tra nsmitted reference range : <=1.0. The reference r jj was not used to int erpret this result as normal/abnormal . [facility] LakeGllfxsnUYKBAXVCWA5576-37-88 11:20:00 Test Item Value Reference Range Interpretation Comments Segs (test code = Segs) 82.1 45.0-75.0 [facility] LakeLmcsbhjLBCALXTQDW7305-21-40 11:20:00 Test Item Value Reference Range Interpretation Comments Monocytes (test code = Monocytes) 9.3 2.0-12.0 [facility] LakeLwtdsnnYAQKOODXPF6434-98-34 11:20:00 Test Item Value Reference Range Interpretation Comments Lymphocytes (test code = Lymphocytes) 8.5 20.0-40.0 [facility] LakeUylqbsyTJZVPBATBF8777-42-60 11:20:00 Test Item Value Reference Range Interpretation Comments RDW (test code = RDW) 16.2 11.5-14.5 [facility] LakeFhfmiiyTOKMTEHGHB9279-19-80 11:20:00 Test Item Value Reference Range Interpretation Comments MPV (test code = MPV) 8.3 7.4-10.4 [facility] LakeXopbttcAXKZCZDCDX1395-24-91 11:20:00 Test Item Value Reference Range Interpretation Comments Platelet (test code = Platelet) 262 133-450 [facility] LakeGhlxunnTEGUVFNTZJ8671-38-82 11:20:00 Test Item Value Reference Range Interpretation Comments Hgb (test code = Hgb) 10.9 12.0-16.0 [facility] LakeXdxazypDCCBOLQNYW6710-74-18 11:20:00 Test Item Value Reference Range Interpretation Comments MCH (test code = MCH) 27.4 pg 27.0-31.0 [facility] LakeUilyzktYGGRCQLQKC0124-22-20 11:20:00 Test Item Value Reference Range Interpretation Comments Hct (test code = Hct) 32.5 36.0-48.0 [facility] LakeCdrbgqyIMQQBNUUEZ4903-86-93 11:20:00 Test Item Value Reference Range Interpretation Comments MCV (test code = MCV) 81.7 80.0-98.0 [facility] LakeTdqyjuvATXBORKXYN9972-12-31 11:20:00 Test Item Value Reference Range Interpretation Comments MCHC (test code = MCHC) 33.5 32.0-36.0 [facility] LakeKubhtwkDWYSFJZOIE6514-28-55 11:20:00 Test Item Value Reference Range Interpretation Comments RBC (test code = RBC) 3.98 4.20-5.40 [facility] LakeZlpwivjAQSSCNFREC2587-99-45 11:20:00 Test Item Value Reference Range Interpretation Comments WBC (test code = WBC) 16.4 3.7-10.4 [facility]2018-06-18 16:11:00 Test Item Value Reference Range Interpretation Comments UA Protein (test code = UA Negative mg/dL Protein) [facility] AND [id number] 16:11:00 Test Item Value Reference Range Interpretation Comments UA Turbidity (test code Slight *ABN*(01/15/18 = UA Turbidity) 11:11 AM) [facility] AND [id number] 16:11:00 Test Item Value Reference Range Interpretation Comments UA Spec Grav (test code = UA Spec 1.015 1 Grav) [facility] [id number] 16:11:00 Test Item Value Reference Range Interpretation Comments Culture: Urine (test 10,000 - 50,000 CFU/mL code = Culture: Urine) [facility]2018-06-18 16:11:00 Test Item Value Reference Range Interpretation Comments eGFR (test code = eGFR) 56 [facility]2018-06-18 16:11:00 Test Item Value Reference Range Interpretation Comments Calcium Lvl (test code = Calcium Lvl) 9.1 8.5-10.5 [facility]2018-06-18 16:11:00 Test Item Value Reference Range Interpretation Comments CO2 (test code = CO2) 27 24-32 [facility]2018-06-18 16:11:00 Test Item Value Reference Range Interpretation Comments Chloride Lvl (test code = Chloride Lvl) 107 95-109 [facility]2018-06-18 16:11:00 Test Item Value Reference Range Interpretation Comments Potassium Lvl (test code = Potassium 4.7 3.5-5.1 Lvl) [facility]2018-06-18 16:11:00 Test Item Value Reference Range Interpretation Comments Sodium Lvl (test code = Sodium Lvl) 144 135-145 [facility]2018-06-18 16:11:00 Test Item Value Reference Range Interpretation Comments Creatinine Lvl (test code = Creatinine 1.04 0.50-1.40 Lvl) [facility]2018-06-18 16:11:00 Test Item Value Reference Range Interpretation Comments BUN (test code = BUN) 17 7-22 [facility]2018-06-18 16:11:00 Test Item Value Reference Range Interpretation Comments Glucose Lvl (test code = Glucose Lvl) 87 70-99 [facility]2018-06-18 16:11:00 Test Item Value Reference Range Interpretation Comments AGAP (test code = AGAP) 14.7 10.0-20.0 [facility]itt[facility]wAOMHHWILIW7732-47-52 16:11:00 Test Item Value Reference Range Interpretation Comments Eosinophils (test code = 2.1 See_Comment [A utomated message] The Eosinophils) system which ge nerated this result tra nsmitted reference range : <=4.0. The reference r jj was not used to int erpret this result as normal/abnormal . [facility] LakeBjvaqugPNVBZIBDYX3355-88-79 16:11:00 Test Item Value Reference Range Interpretation Comments Basophils (test code = 0.3 See_Comment [Aut omated message] The Basophils) system which ge nerated this result tra nsmitted reference range : <=1.0. The reference r jj was not used to int erpret this result as normal/abnormal . [facility] LakeOjttykjKNGBMBJMVF3631-57-48 16:11:00 Test Item Value Reference Range Interpretation Comments Monocytes (test code = Monocytes) 7.1 2.0-12.0 [facility] LakeFbuqkoaJHSQTYTKCW1511-59-82 16:11:00 Test Item Value Reference Range Interpretation Comments Lymphocytes (test code = Lymphocytes) 32.9 20.0-40.0 [facility] LakeFcngkpaCFRUOAYYYS0712-80-52 16:11:00 Test Item Value Reference Range Interpretation Comments Eosinophils # (test code 0.2 See_Comment [A utomated message] The = Eosinophils #) system wh h generated this result tra nsmitted reference range : <=0.5. The reference r jj was not used to int erpret this result as normal/abnormal . [facility] LakeAjwswfvUFFSRYJPFD4480-21-34 16:11:00 Test Item Value Reference Range Interpretation Comments Segs (test code = Segs) 57.6 45.0-75.0 [facility] LakeCyfbkuwRXFRJKOBHN1629-69-55 16:11:00 Test Item Value Reference Range Interpretation Comments Segs-Bands # (test code = Segs-Bands #) 6.3 1.5-8.1 [facility] LakeZyociemAPSGQBUBGG8510-73-48 16:11:00 Test Item Value Reference Range Interpretation Comments Monocytes # (test code 0.8 See_Comment [Aut omated message] The = Monocytes #) system which generated this result tra nsmitted reference range : <=0.8. The reference r jj was not used to int erpret this result as normal/abnormal . [facility] LakeIilfwbyGQBGLGPKGI7054-13-30 16:11:00 Test Item Value Reference Range Interpretation Comments Lymphocytes # (test code = Lymphocytes 3.6 1.0-5.5 #) [facility] LakeGlselesAYZGNGCKXB7434-17-62 16:11:00 Test Item Value Reference Range Interpretation Comments PT (test code = PT) 13.5 s 12.0-14.7 [facility] LakeWwxhkmtTULMUPHHAI0643-60-86 16:11:00 Test Item Value Reference Range Interpretation Comments PTT (test code = PTT) 28.5 s 22.9-35.8 [facility] LakeUinrvreUMOMCFJFDU2963-95-92 16:11:00 Test Item Value Reference Range Interpretation Comments INR (test code = INR) 1.03 1 0.85-1.17 [facility] LakeIwobxzkPXECJAQHWF0002-86-17 16:11:00 Test Item Value Reference Range Interpretation Comments Platelet (test code = Platelet) 261 133-450 [facility] LakeQgppshlQDPIEGTEUW3044-09-30 16:11:00 Test Item Value Reference Range Interpretation Comments MPV (test code = MPV) 8.2 7.4-10.4 [facility] LakeAnthdlvRHMDMXRYXH4687-45-83 16:11:00 Test Item Value Reference Range Interpretation Comments RDW (test code = RDW) 16.3 11.5-14.5 [facility] LakeDembempTDLKUMUWFC6880-61-01 16:11:00 Test Item Value Reference Range Interpretation Comments MCHC (test code = MCHC) 33.2 32.0-36.0 [facility] LakeFiffvvhUSKNZAZDNJ7997-20-52 16:11:00 Test Item Value Reference Range Interpretation Comments WBC (test code = WBC) 10.9 3.7-10.4 [facility] LakeZmxslhkGTKJTAPJYE5107-87-08 16:11:00 Test Item Value Reference Range Interpretation Comments MCV (test code = MCV) 81.8 80.0-98.0 [facility] LakeQyodczsIKFMCZFXIQ4260-27-09 16:11:00 Test Item Value Reference Range Interpretation Comments Hct (test code = Hct) 36.3 36.0-48.0 [facility] LakeYxsgnngQFOVDSXKHS3127-87-03 16:11:00 Test Item Value Reference Range Interpretation Comments Hgb (test code = Hgb) 12.0 12.0-16.0 [facility] LakeCpkspzdHTVQKMCCGX1107-71-02 16:11:00 Test Item Value Reference Range Interpretation Comments MCH (test code = MCH) 27.1 pg 27.0-31.0 [facility] LakeKdrozfuZSNOVYTWGR0560-33-89 16:11:00 Test Item Value Reference Range Interpretation Comments RBC (test code = RBC) 4.44 4.20-5.40 [facility] AND [id number] 16:11:00 Test Item Value Reference Range Interpretation Comments UA Color (test code = UA Color) Ltyellow [facility] AND [id number] 16:11:00 Test Item Value Reference Range Interpretation Comments UA Urobilinogen (test code = UA <=1.0 mg/dL 0.1-1.0 Urobilinogen) [facility] AND [id number] 16:11:00 Test Item Value Reference Range Interpretation Comments UA Bacteria (test code = UA Occasional /HPF Bacteria) [facility] AND [id number] 16:11:00 Test Item Value Reference Range Interpretation Comments UA RBC (test code = 1 See_Comment [Automa elton message] The UA RBC) system which ge nerated this result transmit elton reference range : <=2. The reference range was not used to interpr et this result as anatoly l/abnormal. [facility] AND [id number] 16:11:00 Test Item Value Reference Range Interpretation Comments UA Glucose (test code = UA Negative mg/dL Glucose) [facility] AND [id number] 16:11:00 Test Item Value Reference Range Interpretation Comments UA Ketones (test code = UA Negative mg/dL Ketones) [facility] AND [id number] 16:11:00 Test Item Value Reference Range Interpretation Comments UA Nitrite (test code Negative (01/15/18 11:11 = UA Nitrite) AM) [facility] AND [id number] 16:11:00 Test Item Value Reference Range Interpretation Comments UA Bili (test code = Negative *NA*(01/15/18 UA Bili) 11:11 AM) [facility] AND [id number] 16:11:00 Test Item Value Reference Range Interpretation Comments UA Blood (test code = Small *ABN*(01/15/18 UA Blood) 11:11 AM) [facility] AND [id number] 16:11:00 Test Item Value Reference Range Interpretation Comments UA WBC (test code = 4 See_Comment [Automa elton message] The UA WBC) system which ge nerated this result transmit elton reference range : <=5. The reference range was not used to interpr et this result as anatoly l/abnormal. [facility] AND [id number] 16:11:00 Test Item Value Reference Range Interpretation Comments UA Leuk Est (test code Large *ABN*(01/15/18 = UA Leuk Est) 11:11 AM) [facility] AND [id number] 16:11:00 Test Item Value Reference Range Interpretation Comments UA Sq Epi (test code = UA Sq Epi) Many /LPF [facility] AND [id number] 16:11:00 Test Item Value Reference Range Interpretation Comments UA pH (test code = UA pH) 5.0 1 5.0-8.0 [facility] AND [id number] 16:11:00 Test Item Value Reference Range Interpretation Comments UA Protein (test code = UA Negative mg/dL Protein) [facility] AND [id number] 16:11:00 Test Item Value Reference Range Interpretation Comments UA Turbidity (test code Slight *ABN*(01/15/18 = UA Turbidity) 11:11 AM) [facility] AND [id number] 16:11:00 Test Item Value Reference Range Interpretation Comments UA Spec Grav (test code = UA Spec 1.015 1 Grav) [facility] [id number] 16:11:00 Test Item Value Reference Range Interpretation Comments Culture: Urine (test 10,000 - 50,000 CFU/mL code = Culture: Urine) Skin Jessica [facility] [id number] 16:11:00 Test Item Value Reference Range Interpretation Comments eGFR (test code = eGFR) 56 [facility] [id number] 16:11:00 Test Item Value Reference Range Interpretation Comments Calcium Lvl (test code = Calcium Lvl) 9.1 8.5-10.5 [facility] [id number] 16:11:00 Test Item Value Reference Range Interpretation Comments CO2 (test code = CO2) 27 24-32 [facility] [id number] 16:11:00 Test Item Value Reference Range Interpretation Comments Chloride Lvl (test code = Chloride Lvl) 107 95-109 [facility] [id number] 16:11:00 Test Item Value Reference Range Interpretation Comments Potassium Lvl (test code = Potassium 4.7 3.5-5.1 Lvl) [facility]2018-06-18 16:11:00 Test Item Value Reference Range Interpretation Comments Sodium Lvl (test code = Sodium Lvl) 144 135-145 [facility]2018-06-18 16:11:00 Test Item Value Reference Range Interpretation Comments Creatinine Lvl (test code = Creatinine 1.04 0.50-1.40 Lvl) [facility]2018-06-18 16:11:00 Test Item Value Reference Range Interpretation Comments BUN (test code = BUN) 17 7-22 [place] 906408-06-18 16:11:00 Test Item Value Reference Range Interpretation Comments Glucose Lvl (test code = Glucose Lvl) 87 70-99 [facility]2018-06-18 16:11:00 Test Item Value Reference Range Interpretation Comments AGAP (test code = AGAP) 14.7 10.0-20.0 [facility] LakeEdbeigyZDYKPOCRBW4437-09-85 16:11:00 Test Item Value Reference Range Interpretation Comments Eosinophils (test code = 2.1 See_Comment [A utomated message] The Eosinophils) system which ge nerated this result tra nsmitted reference range : <=4.0. The reference r jj was not used to int erpret this result as normal/abnormal . [facility] LakeTwzpozhWHJZCWNFMD5724-39-97 16:11:00 Test Item Value Reference Range Interpretation Comments Basophils (test code = 0.3 See_Comment [Aut omated message] The Basophils) system which ge nerated this result tra nsmitted reference range : <=1.0. The reference r jj was not used to int erpret this result as normal/abnormal . [facility] LakeIdxsclcMUJBJWHKJV1623-04-46 16:11:00 Test Item Value Reference Range Interpretation Comments Monocytes (test code = Monocytes) 7.1 2.0-12.0 [facility] LakeXmupniyZPNNNATOWL2850-01-20 16:11:00 Test Item Value Reference Range Interpretation Comments Lymphocytes (test code = Lymphocytes) 32.9 20.0-40.0 [facility] LakeZbohqutUTJYXBBBJE0793-90-74 16:11:00 Test Item Value Reference Range Interpretation Comments Eosinophils # (test code 0.2 See_Comment [A utomated message] The = Eosinophils #) system whic h generated this result tra nsmitted reference range : <=0.5. The reference r jj was not used to int erpret this result as normal/abnormal . [facility] LakeGoziwjmIJJQOWBOFX5063-45-61 16:11:00 Test Item Value Reference Range Interpretation Comments Segs (test code = Segs) 57.6 45.0-75.0 [facility] LakeCbqnbmfRNAWXBAVMW9259-57-72 16:11:00 Test Item Value Reference Range Interpretation Comments Segs-Bands # (test code = Segs-Bands #) 6.3 1.5-8.1 [facility] LakeSzpeoqxHKJPKUOVZF6809-62-19 16:11:00 Test Item Value Reference Range Interpretation Comments Monocytes # (test code 0.8 See_Comment [Aut omated message] The = Monocytes #) system which generated this result tra nsmitted reference range : <=0.8. The reference r jj was not used to int erpret this result as normal/abnormal . [facility] LakeLtqtgvkFMXLOEKJFN5486-34-11 16:11:00 Test Item Value Reference Range Interpretation Comments Lymphocytes # (test code = Lymphocytes 3.6 1.0-5.5 #) [facility] LakeObohsroNWNYWPVIME1785-14-21 16:11:00 Test Item Value Reference Range Interpretation Comments PT (test code = PT) 13.5 s 12.0-14.7 [facility] LakeZmryoxoABTEAOCSPW5995-49-44 16:11:00 Test Item Value Reference Range Interpretation Comments PTT (test code = PTT) 28.5 s 22.9-35.8 [facility] LakeEraqcgmETXAZNUFPE2958-48-23 16:11:00 Test Item Value Reference Range Interpretation Comments INR (test code = INR) 1.03 1 0.85-1.17 [facility] LakeFfnmfptYPZEBCDXSY9851-22-20 16:11:00 Test Item Value Reference Range Interpretation Comments Platelet (test code = Platelet) 261 133-450 [facility] LakeWxdepvpUGWFUOTGQO1091-38-23 16:11:00 Test Item Value Reference Range Interpretation Comments MPV (test code = MPV) 8.2 7.4-10.4 [facility] LakeXhgyijuSVPRZURUYT2280-86-17 16:11:00 Test Item Value Reference Range Interpretation Comments RDW (test code = RDW) 16.3 11.5-14.5 [facility] LakeZclyubpNCPBXSHRSM7053-25-02 16:11:00 Test Item Value Reference Range Interpretation Comments MCHC (test code = MCHC) 33.2 32.0-36.0 [facility] LakeCfguzfuJVMBIAWVIX5708-02-30 16:11:00 Test Item Value Reference Range Interpretation Comments WBC (test code = WBC) 10.9 3.7-10.4 [facility] LakeEiyzhphUWKITQIPCJ3607-30-25 16:11:00 Test Item Value Reference Range Interpretation Comments MCV (test code = MCV) 81.8 80.0-98.0 [facility] LakeLzntouvATSFYYRDPZ8541-91-04 16:11:00 Test Item Value Reference Range Interpretation Comments Hct (test code = Hct) 36.3 36.0-48.0 [facility] LakePlbjtntDTLTCBJRBT6447-16-32 16:11:00 Test Item Value Reference Range Interpretation Comments Hgb (test code = Hgb) 12.0 12.0-16.0 [facility] LakePtmigszKYMJTZTUAX2198-51-01 16:11:00 Test Item Value Reference Range Interpretation Comments MCH (test code = MCH) 27.1 pg 27.0-31.0 [facility] LakeAhoddagWQSXWRYUZN0483-65-48 16:11:00 Test Item Value Reference Range Interpretation Comments RBC (test code = RBC) 4.44 4.20-5.40 [facility]2018-06-18 16:11:00 Test Item Value Reference Range Interpretation Comments UA Color (test code = UA Color) Ltyellow [facility] AND [id number] 16:11:00 Test Item Value Reference Range Interpretation Comments UA Urobilinogen (test code = UA <=1.0 mg/dL 0.1-1.0 Urobilinogen) [facility] AND [id number] 16:11:00 Test Item Value Reference Range Interpretation Comments UA Bacteria (test code = UA Occasional /HPF Bacteria) [facility]2018-06-18 16:11:00 Test Item Value Reference Range Interpretation Comments UA RBC (test code = 1 See_Comment [Automa elton message] The UA RBC) system which ge nerated this result transmit elton reference range : <=2. The reference range was not used to interpr et this result as anatoly l/abnormal. [facility]2018-06-18 16:11:00 Test Item Value Reference Range Interpretation Comments UA Glucose (test code = UA Negative mg/dL Glucose) [facility] AND [id number] 16:11:00 Test Item Value Reference Range Interpretation Comments UA Ketones (test code = UA Negative mg/dL Ketones) [facility] AND [id number] 16:11:00 Test Item Value Reference Range Interpretation Comments UA Nitrite (test code Negative (01/15/18 11:11 = UA Nitrite) AM) [facility] AND [id number] 16:11:00 Test Item Value Reference Range Interpretation Comments UA Bili (test code = Negative *NA*(01/15/18 UA Bili) 11:11 AM) [facility] AND [id number] 16:11:00 Test Item Value Reference Range Interpretation Comments UA Blood (test code = Small *ABN*(01/15/18 UA Blood) 11:11 AM) [facility] AND [id number] 16:11:00 Test Item Value Reference Range Interpretation Comments UA WBC (test code = 4 See_Comment [Automa elton message] The UA WBC) system which ge nerated this result transmit elton reference range : <=5. The reference range was not used to interpr et this result as anatoly l/abnormal. [facility] AND [id number] 16:11:00 Test Item Value Reference Range Interpretation Comments UA Leuk Est (test code Large *ABN*(01/15/18 = UA Leuk Est) 11:11 AM) [facility] AND [id number] 16:11:00 Test Item Value Reference Range Interpretation Comments UA Sq Epi (test code = UA Sq Epi) Many /LPF [facility] AND [id number] 16:11:00 Test Item Value Reference Range Interpretation Comments UA pH (test code = UA pH) 5.0 1 5.0-8.0 [facility] AND [id number] 16:11:00 Test Item Value Reference Range Interpretation Comments UA Protein (test code = UA Negative mg/dL Protein) [facility] AND [id number] 16:11:00 Test Item Value Reference Range Interpretation Comments UA Turbidity (test code Slight *ABN*(01/15/18 = UA Turbidity) 11:11 AM) [facility] AND [id number] 16:11:00 Test Item Value Reference Range Interpretation Comments UA Spec Grav (test code = UA Spec 1.015 1 Grav) [facility] [id number] 16:11:00 Test Item Value Reference Range Interpretation Comments Culture: Urine (test 10,000 - 50,000 CFU/mL code = Culture: Urine) Skin Jessica [facility] [id number] 16:11:00 Test Item Value Reference Range Interpretation Comments eGFR (test code = eGFR) 56 [facility]2018-06-18 16:11:00 Test Item Value Reference Range Interpretation Comments Calcium Lvl (test code = Calcium Lvl) 9.1 8.5-10.5 [facility]2018-06-18 16:11:00 Test Item Value Reference Range Interpretation Comments CO2 (test code = CO2) 27 24-32 [facility]2018-06-18 16:11:00 Test Item Value Reference Range Interpretation Comments Chloride Lvl (test code = Chloride Lvl) 107 95-109 [facility]2018-06-18 16:11:00 Test Item Value Reference Range Interpretation Comments Potassium Lvl (test code = Potassium 4.7 3.5-5.1 Lvl) [facility]2018-06-18 16:11:00 Test Item Value Reference Range Interpretation Comments Sodium Lvl (test code = Sodium Lvl) 144 135-145 [facility]2018-06-18 16:11:00 Test Item Value Reference Range Interpretation Comments Creatinine Lvl (test code = Creatinine 1.04 0.50-1.40 Lvl) [facility] [id number] 16:11:00 Test Item Value Reference Range Interpretation Comments BUN (test code = BUN) 17 7-22 [facility]2018-06-18 16:11:00 Test Item Value Reference Range Interpretation Comments Glucose Lvl (test code = Glucose Lvl) 87 70-99 [facility]2018-06-18 16:11:00 Test Item Value Reference Range Interpretation Comments AGAP (test code = AGAP) 14.7 10.0-20.0 [facility] HospitalOuaanthQSZMLJALQW9190-96-02 16:11:00 Test Item Value Reference Range Interpretation Comments Eosinophils (test code = 2.1 See_Comment [A utomated message] The Eosinophils) system which ge nerated this result tra nsmitted reference range : <=4.0. The reference r jj was not used to int erpret this result as normal/abnormal . [facility] LakeXrsgfzvSZESOKCUCG8061-32-42 16:11:00 Test Item Value Reference Range Interpretation Comments Basophils (test code = 0.3 See_Comment [Aut omated message] The Basophils) system which ge nerated this result tra nsmitted reference range : <=1.0. The reference r jj was not used to int erpret this result as normal/abnormal . [facility] LakeXobdcxpQCNHKKSGTW7899-76-60 16:11:00 Test Item Value Reference Range Interpretation Comments Monocytes (test code = Monocytes) 7.1 2.0-12.0 [facility] LakeStryrxnYIMFSXNSTA5664-91-05 16:11:00 Test Item Value Reference Range Interpretation Comments Lymphocytes (test code = Lymphocytes) 32.9 20.0-40.0 [facility] LakeMulrreeYXYVQUZTWQ2614-23-65 16:11:00 Test Item Value Reference Range Interpretation Comments Eosinophils # (test code 0.2 See_Comment [A utomated message] The = Eosinophils #) system [facility] h generated this result tra nsmitted reference range : <=0.5. The reference r jj was not used to int erpret this result as normal/abnormal . [facility] LakeMidytyxWJWMXYFVTB1911-20-89 16:11:00 Test Item Value Reference Range Interpretation Comments Segs (test code = Segs) 57.6 45.0-75.0 [facility] LakeQnhxtgjMSYARWXRZD7770-76-89 16:11:00 Test Item Value Reference Range Interpretation Comments Segs-Bands # (test code = Segs-Bands #) 6.3 1.5-8.1 [facility] LakeUdqfioqHDSDLJQERO9610-72-95 16:11:00 Test Item Value Reference Range Interpretation Comments Monocytes # (test code 0.8 See_Comment [Aut omated message] The = Monocytes #) system which generated this result tra nsmitted reference range : <=0.8. The reference r jj was not used to int erpret this result as normal/abnormal . [facility] LakeSzhkvsvHZBCACXZMJ8691-21-47 16:11:00 Test Item Value Reference Range Interpretation Comments Lymphocytes # (test code = Lymphocytes 3.6 1.0-5.5 #) [facility] LakeJznjblnYWCLABLODU8011-71-42 16:11:00 Test Item Value Reference Range Interpretation Comments PT (test code = PT) 13.5 s 12.0-14.7 [facility] LakeUazhtstHSZGQMCFYR4555-46-97 16:11:00 Test Item Value Reference Range Interpretation Comments PTT (test code = PTT) 28.5 s 22.9-35.8 [facility] LakeRuzqdabLVFQELYCJP2848-25-13 16:11:00 Test Item Value Reference Range Interpretation Comments INR (test code = INR) 1.03 1 0.85-1.17 [facility] LakeIsxizpiDXYBTJFJAL6287-60-77 16:11:00 Test Item Value Reference Range Interpretation Comments Platelet (test code = Platelet) 261 133-450 [facility] LakeYjbqeupKYPINOKMMI8473-48-93 16:11:00 Test Item Value Reference Range Interpretation Comments MPV (test code = MPV) 8.2 7.4-10.4 [facility] LakeUdcwdszEFNNYAMWOA9631-87-08 16:11:00 Test Item Value Reference Range Interpretation Comments RDW (test code = RDW) 16.3 11.5-14.5 [facility] LakeBrcqmboZQVBYDVCSH1371-25-43 16:11:00 Test Item Value Reference Range Interpretation Comments MCHC (test code = MCHC) 33.2 32.0-36.0 [facility] LakeOmnukmyLOBHEBNIXO8162-72-13 16:11:00 Test Item Value Reference Range Interpretation Comments WBC (test code = WBC) 10.9 3.7-10.4 [facility] LakeOfcxnchHASFSQQYBU7512-44-44 16:11:00 Test Item Value Reference Range Interpretation Comments MCV (test code = MCV) 81.8 80.0-98.0 [facility] LakeDviuachISLUHPOREQ1141-47-05 16:11:00 Test Item Value Reference Range Interpretation Comments Hct (test code = Hct) 36.3 36.0-48.0 [facility] LakeRnjgvbcSABLEOFLFF1123-84-38 16:11:00 Test Item Value Reference Range Interpretation Comments Hgb (test code = Hgb) 12.0 12.0-16.0 [facility] LakeSwbdmaiXKZNVHIEEJ4856-20-20 16:11:00 Test Item Value Reference Range Interpretation Comments MCH (test code = MCH) 27.1 pg 27.0-31.0 [facility] CenterSpcmpazSVVBZMUYIA5396-07-89 16:11:00 Test Item Value Reference Range Interpretation Comments RBC (test code = RBC) 4.44 4.20-5.40 [facility] AND [id number] 16:11:00 Test Item Value Reference Range Interpretation Comments UA Color (test code = UA Color) Ltyellow [facility] AND [id number] 16:11:00 Test Item Value Reference Range Interpretation Comments UA Urobilinogen (test code = UA <=1.0 mg/dL 0.1-1.0 Urobilinogen) [facility] AND [id number] 16:11:00 Test Item Value Reference Range Interpretation Comments UA Bacteria (test code = UA Occasional /HPF Bacteria) [facility] AND [id number] 16:11:00 Test Item Value Reference Range Interpretation Comments UA RBC (test code = 1 See_Comment [Automa elton message] The UA RBC) system which ge nerated this result transmit elton reference range : <=2. The reference range was not used to interpr et this result as anatoly l/abnormal. [facility] AND [id number] 16:11:00 Test Item Value Reference Range Interpretation Comments UA Glucose (test code = UA Negative mg/dL Glucose) [facility] AND [id number] 16:11:00 Test Item Value Reference Range Interpretation Comments UA Ketones (test code = UA Negative mg/dL Ketones) [facility] AND [id number] 16:11:00 Test Item Value Reference Range Interpretation Comments UA Nitrite (test code Negative (01/15/18 11:11 = UA Nitrite) AM) [facility] AND [id number] 16:11:00 Test Item Value Reference Range Interpretation Comments UA Bili (test code = Negative *NA*(01/15/18 UA Bili) 11:11 AM) [facility] AND [id number] 16:11:00 Test Item Value Reference Range Interpretation Comments UA Blood (test code = Small *ABN*(01/15/18 UA Blood) 11:11 AM) [facility] AND [id number] 16:11:00 Test Item Value Reference Range Interpretation Comments UA WBC (test code = 4 See_Comment [Automa elton message] The UA WBC) system which ge nerated this result transmit elton reference range : <=5. The reference range was not used to interpr et this result as anatoly l/abnormal. [facility] AND [id number] 16:11:00 Test Item Value Reference Range Interpretation Comments UA Leuk Est (test code Large *ABN*(01/15/18 = UA Leuk Est) 11:11 AM) [facility] AND [id number] 16:11:00 Test Item Value Reference Range Interpretation Comments UA Sq Epi (test code = UA Sq Epi) Many /LPF [facility] AND [id number] 16:11:00 Test Item Value Reference Range Interpretation Comments UA pH (test code = UA pH) 5.0 1 5.0-8.0 [facility] AND [id number] 16:11:00 Test Item Value Reference Range Interpretation Comments UA Protein (test code = UA Negative mg/dL Protein) [facility] AND [id number] 16:11:00 Test Item Value Reference Range Interpretation Comments UA Turbidity (test code Slight *ABN*(01/15/18 = UA Turbidity) 11:11 AM) [facility] AND [id number] 16:11:00 Test Item Value Reference Range Interpretation Comments UA Spec Grav (test code = UA Spec 1.015 1 Grav) [facility] [id number] 16:11:00 Test Item Value Reference Range Interpretation Comments Culture: Urine (test 10,000 - 50,000 CFU/mL code = Culture: Urine) Skin Jessica [facility] [id number] 16:11:00 Test Item Value Reference Range Interpretation Comments eGFR (test code = eGFR) 56 [facility] CenterGlobal One Financial [id number] 16:11:00 Test Item Value Reference Range Interpretation Comments Calcium Lvl (test code = Calcium Lvl) 9.1 8.5-10.5 [facility] [id number] 16:11:00 Test Item Value Reference Range Interpretation Comments CO2 (test code = CO2) 27 24-32 [facility] [id number] 16:11:00 Test Item Value Reference Range Interpretation Comments Chloride Lvl (test code = Chloride Lvl) 107 95-109 [facility]2018-06-18 16:11:00 Test Item Value Reference Range Interpretation Comments Potassium Lvl (test code = Potassium 4.7 3.5-5.1 Lvl) [facility]2018-06-18 16:11:00 Test Item Value Reference Range Interpretation Comments Sodium Lvl (test code = Sodium Lvl) 144 135-145 [facility]2018-06-18 16:11:00 Test Item Value Reference Range Interpretation Comments Creatinine Lvl (test code = Creatinine 1.04 0.50-1.40 Lvl) [place] [id number] 16:11:00 Test Item Value Reference Range Interpretation Comments BUN (test code = BUN) 17 7-22 [facility]2018-06-18 16:11:00 Test Item Value Reference Range Interpretation Comments Glucose Lvl (test code = Glucose Lvl) 87 70-99 [facility]2018-06-18 16:11:00 Test Item Value Reference Range Interpretation Comments AGAP (test code = AGAP) 14.7 10.0-20.0 [facility] [id number] 16:11:00 Test Item Value Reference Range Interpretation Comments Eosinophils (test code = 2.1 See_Comment [A utomated message] The Eosinophils) system which ge nerated this result tra nsmitted reference range : <=4.0. The reference r jj was not used to int erpret this result as normal/abnormal . [facility] LakeLbbxotiMKTGLMPFMV7130-67-86 16:11:00 Test Item Value Reference Range Interpretation Comments Basophils (test code = 0.3 See_Comment [Aut omated message] The Basophils) system which ge nerated this result tra nsmitted reference range : <=1.0. The reference r jj was not used to int erpret this result as normal/abnormal . [facility] LakeIcjlcwxABAMHFRAXQ6959-13-29 16:11:00 Test Item Value Reference Range Interpretation Comments Monocytes (test code = Monocytes) 7.1 2.0-12.0 [place] [id number] 16:11:00 Test Item Value Reference Range Interpretation Comments Lymphocytes (test code = Lymphocytes) 32.9 20.0-40.0 [facility] LakeZhkqsxwCHCTATTXIO5750-46-01 16:11:00 Test Item Value Reference Range Interpretation Comments Eosinophils # (test code 0.2 See_Comment [A utomated message] The = Eosinophils #) system whic h generated this result tra nsmitted reference range : <=0.5. The reference r jj was not used to int erpret this result as normal/abnormal . [facility] LakeLmlkkxaXWHSXJTAUW5938-84-08 16:11:00 Test Item Value Reference Range Interpretation Comments Segs (test code = Segs) 57.6 45.0-75.0 [facility] LakeEsxkkdnLSSAYSFRKA1840-56-17 16:11:00 Test Item Value Reference Range Interpretation Comments Segs-Bands # (test code = Segs-Bands #) 6.3 1.5-8.1 [facility] LakeQqnatmaTNAGJGMYCF7636-68-15 16:11:00 Test Item Value Reference Range Interpretation Comments Monocytes # (test code 0.8 See_Comment [Aut omated message] The = Monocytes #) system which generated this result tra nsmitted reference range : <=0.8. The reference r jj was not used to int erpret this result as normal/abnormal . [facility] LakeDsuzrcpRZOTZTLJBU2249-74-03 16:11:00 Test Item Value Reference Range Interpretation Comments Lymphocytes # (test code = Lymphocytes 3.6 1.0-5.5 #) [facility] LakeOudavocPSQMGGEMBJ1909-28-69 16:11:00 Test Item Value Reference Range Interpretation Comments PT (test code = PT) 13.5 s 12.0-14.7 [facility] LakeOsewkrsHEMLETRLEG1532-24-40 16:11:00 Test Item Value Reference Range Interpretation Comments PTT (test code = PTT) 28.5 s 22.9-35.8 [facility] LakeLemlpdsAMHEJZUABW5186-19-38 16:11:00 Test Item Value Reference Range Interpretation Comments INR (test code = INR) 1.03 1 0.85-1.17 [facility] LakeXpmtdxjUUSYZBGAVR9192-30-86 16:11:00 Test Item Value Reference Range Interpretation Comments Platelet (test code = Platelet) 261 133-450 [facility] LakeDaxuxedYZRIFIDTQV8246-21-42 16:11:00 Test Item Value Reference Range Interpretation Comments MPV (test code = MPV) 8.2 7.4-10.4 [facility] LakeIdxxkksCPTCTSONZH2220-40-89 16:11:00 Test Item Value Reference Range Interpretation Comments RDW (test code = RDW) 16.3 11.5-14.5 [facility] LakeVimksbnGVSTIILTAG7967-11-06 16:11:00 Test Item Value Reference Range Interpretation Comments MCHC (test code = MCHC) 33.2 32.0-36.0 [facility] LakeRttgowkTKVCJPBZUR3893-43-61 16:11:00 Test Item Value Reference Range Interpretation Comments WBC (test code = WBC) 10.9 3.7-10.4 [facility] LakeWwbudzcGALQCZTHKD7155-92-55 16:11:00 Test Item Value Reference Range Interpretation Comments MCV (test code = MCV) 81.8 80.0-98.0 [facility] LakeFgczeqlHKNIWNKBMK2116-29-98 16:11:00 Test Item Value Reference Range Interpretation Comments Hct (test code = Hct) 36.3 36.0-48.0 [facility] LakeMmkywwkQDQUEQFQEG4482-86-44 16:11:00 Test Item Value Reference Range Interpretation Comments Hgb (test code = Hgb) 12.0 12.0-16.0 [facility] LakeTjeismiWWFDVSZYXD1986-73-46 16:11:00 Test Item Value Reference Range Interpretation Comments MCH (test code = MCH) 27.1 pg 27.0-31.0 [facility] LakeSbkjnahBXKVSCKFFK2187-41-44 16:11:00 Test Item Value Reference Range Interpretation Comments RBC (test code = RBC) 4.44 4.20-5.40 [facility] AND [id number] 16:11:00 Test Item Value Reference Range Interpretation Comments UA Color (test code = UA Color) Ltyellow [facility] AND [id number] 16:11:00 Test Item Value Reference Range Interpretation Comments UA Urobilinogen (test code = UA <=1.0 mg/dL 0.1-1.0 Urobilinogen) [facility] AND [id number] 16:11:00 Test Item Value Reference Range Interpretation Comments UA Bacteria (test code = UA Occasional /HPF Bacteria) [facility] AND [id number] 16:11:00 Test Item Value Reference Range Interpretation Comments UA RBC (test code = 1 See_Comment [Automa elton message] The UA RBC) system which ge nerated this result transmit elton reference range : <=2. The reference range was not used to interpr et this result as anatoly l/abnormal. [facility] AND [id number] 16:11:00 Test Item Value Reference Range Interpretation Comments UA Glucose (test code = UA Negative mg/dL Glucose) [facility] AND [id number] 16:11:00 Test Item Value Reference Range Interpretation Comments UA Ketones (test code = UA Negative mg/dL Ketones) [facility] AND [id number] 16:11:00 Test Item Value Reference Range Interpretation Comments UA Nitrite (test code Negative (01/15/18 11:11 = UA Nitrite) AM) [facility] AND [id number] 16:11:00 Test Item Value Reference Range Interpretation Comments UA Bili (test code = Negative *NA*(01/15/18 UA Bili) 11:11 AM) [facility] AND [id number] 16:11:00 Test Item Value Reference Range Interpretation Comments UA Blood (test code = Small *ABN*(01/15/18 UA Blood) 11:11 AM) [facility] AND [id number] 16:11:00 Test Item Value Reference Range Interpretation Comments UA WBC (test code = 4 See_Comment [Automa elton message] The UA WBC) system which ge nerated this result transmit elton reference range : <=5. The reference range was not used to interpr et this result as anatoly l/abnormal. [facility] AND [id number] 16:11:00 Test Item Value Reference Range Interpretation Comments UA Leuk Est (test code Large *ABN*(01/15/18 = UA Leuk Est) 11:11 AM) [facility] AND [id number] 16:11:00 Test Item Value Reference Range Interpretation Comments UA Sq Epi (test code = UA Sq Epi) Many /LPF [facility] AND [id number] 16:11:00 Test Item Value Reference Range Interpretation Comments UA pH (test code = UA pH) 5.0 1 5.0-8.0 [facility] AND [id number] 16:11:00 Test Item Value Reference Range Interpretation Comments UA Protein (test code = UA Negative mg/dL Protein) [facility] AND [id number] 16:11:00 Test Item Value Reference Range Interpretation Comments UA Turbidity (test code Slight *ABN*(01/15/18 = UA Turbidity) 11:11 AM) [facility] AND [id number] 16:11:00 Test Item Value Reference Range Interpretation Comments UA Spec Grav (test code = UA Spec 1.015 1 Grav) [facility] CenterCulture: [id number] 16:11:00 Test Item Value Reference Range Interpretation Comments Culture: Urine (test 10,000 - 50,000 CFU/mL code = Culture: Urine) Skin Jessica [facility] [id number] 16:11:00 Test Item Value Reference Range Interpretation Comments eGFR (test code = eGFR) [address] [facility] [id number] 16:11:00 Test Item Value Reference Range Interpretation Comments Calcium Lvl (test code = Calcium Lvl) 9.1 8.5-10.5 [facility]2018-06-18 16:11:00 Test Item Value Reference Range Interpretation Comments CO2 (test code = CO2) 27 24-32 [facility] [id number] 16:11:00 Test Item Value Reference Range Interpretation Comments Chloride Lvl (test code = Chloride Lvl) 107 95-109 [facility] [id number] 16:11:00 Test Item Value Reference Range Interpretation Comments Potassium Lvl (test code = Potassium 4.7 3.5-5.1 Lvl) [facility] [id number] 16:11:00 Test Item Value Reference Range Interpretation Comments Sodium Lvl (test code = Sodium Lvl) 144 135-145 [facility] [id number] 16:11:00 Test Item Value Reference Range Interpretation Comments Creatinine Lvl (test code = Creatinine 1.04 0.50-1.40 Lvl) [facility] [id number] 16:11:00 Test Item Value Reference Range Interpretation Comments BUN (test code = BUN) 17 7-[address] [facility] [id number] 16:11:00 Test Item Value Reference Range Interpretation Comments Glucose Lvl (test code = Glucose Lvl) 87 70-[address] [facility] [id number] 16:11:00 Test Item Value Reference Range Interpretation Comments AGAP (test code = AGAP) 14.7 10.0-20.0 [facility] LakeUbumytbMTIGEVZEOF0924-93-57 16:11:00 Test Item Value Reference Range Interpretation Comments Eosinophils (test code = 2.1 See_Comment [A utomated message] The Eosinophils) system which ge nerated this result tra nsmitted reference range : <=4.0. The reference r jj was not used to int erpret this result as normal/abnormal . [facility] LakeMjtutbsZAPTJIXQWV8801-47-48 16:11:00 Test Item Value Reference Range Interpretation Comments Basophils (test code = 0.3 See_Comment [Aut omated message] The Basophils) system which ge nerated this result tra nsmitted reference range : <=1.0. The reference r jj was not used to int erpret this result as normal/abnormal . [facility] LakeXbxuujlRKWUHBZEVN7698-30-57 16:11:00 Test Item Value Reference Range Interpretation Comments Monocytes (test code = Monocytes) 7.1 2.0-12.0 [facility] LakeWppvwacPVYSRDVQEH8798-10-65 16:11:00 Test Item Value Reference Range Interpretation Comments Lymphocytes (test code = Lymphocytes) 32.9 20.0-40.0 [facility] LakeKqkryhuVVEZAYUDHP0326-10-79 16:11:00 Test Item Value Reference Range Interpretation Comments Eosinophils # (test code 0.2 See_Comment [A utomated message] The = Eosinophils #) system [facility] h generated this result tra nsmitted reference range : <=0.5. The reference r jj was not used to int erpret this result as normal/abnormal . [facility] La[id number] 16:11:00 Test Item Value Reference Range Interpretation Comments Segs (test code = Segs) 57.6 45.0-75.0 [facility] La[id number] 16:11:00 Test Item Value Reference Range Interpretation Comments Segs-Bands # (test code = Segs-Bands #) 6.3 1.5-8.1 [facility] LakeLeyhwaqMYTDKWXFXL0174-81-61 16:11:00 Test Item Value Reference Range Interpretation Comments Monocytes # (test code 0.8 See_Comment [Aut omated message] The = Monocytes #) system which generated this result tra nsmitted reference range : <=0.8. The reference r jj was not used to int erpret this result as normal/abnormal . [place] [id number] 16:11:00 Test Item Value Reference Range Interpretation Comments Lymphocytes # (test code = Lymphocytes 3.6 1.0-5.5 #) [facility] LakeSrhxnlsIIGEYCNGEN9701-40-05 16:11:00 Test Item Value Reference Range Interpretation Comments PT (test code = PT) 13.5 s 12.0-14.7 [facility] LakeTtihgitLMIPQVXGCU9674-64-21 16:11:00 Test Item Value Reference Range Interpretation Comments PTT (test code = PTT) 28.5 s 22.9-35.8 [facility] LakeGevwqhcKSNIETIEIU1677-90-42 16:11:00 Test Item Value Reference Range Interpretation Comments INR (test code = INR) 1.03 1 0.85-1.17 [facility] LakeKcohyckNAITAISZMM9548-30-20 16:11:00 Test Item Value Reference Range Interpretation Comments Platelet (test code = Platelet) 261 133-450 [facility] LakeChvotveYAORNFHOEO5066-99-35 16:11:00 Test Item Value Reference Range Interpretation Comments MPV (test code = MPV) 8.2 7.4-10.4 [facility] LakeZbbwfxxSOWMUFWINY6226-00-29 16:11:00 Test Item Value Reference Range Interpretation Comments RDW (test code = RDW) 16.3 11.5-14.5 [facility] LakeUkqfwakXNDIATQMMU4368-69-00 16:11:00 Test Item Value Reference Range Interpretation Comments MCHC (test code = MCHC) 33.2 32.0-36.0 [facility] LakeEpwcwanJPEFMQSTRJ8892-27-48 16:11:00 Test Item Value Reference Range Interpretation Comments WBC (test code = WBC) 10.9 3.7-10.4 [facility] LakeIgvntcoQMFSWYAWPV6526-37-44 16:11:00 Test Item Value Reference Range Interpretation Comments MCV (test code = MCV) 81.8 80.0-98.0 [facility] LakeFegdiucVMRSPVTDIF2977-78-40 16:11:00 Test Item Value Reference Range Interpretation Comments Hct (test code = Hct) 36.3 36.0-48.0 [facility] LakeJhqfoorIOMANPSMXD2461-03-86 16:11:00 Test Item Value Reference Range Interpretation Comments Hgb (test code = Hgb) 12.0 12.0-16.0 [facility] LakeOvlfyckGANFUIUABE0506-05-63 16:11:00 Test Item Value Reference Range Interpretation Comments MCH (test code = MCH) 27.1 pg 27.0-31.0 [facility] CenterGjynwqiFYXHXCLAHB4326-24-10 16:11:00 Test Item Value Reference Range Interpretation Comments RBC (test code = RBC) 4.44 4.20-5.40 [facility] AND [id number] 16:11:00 Test Item Value Reference Range Interpretation Comments UA Color (test code = UA Color) Ltyellow [facility] AND [id number] 16:11:00 Test Item Value Reference Range Interpretation Comments UA Urobilinogen (test code = UA <=1.0 mg/dL 0.1-1.0 Urobilinogen) [facility] AND [id number] 16:11:00 Test Item Value Reference Range Interpretation Comments UA Bacteria (test code = UA Occasional /HPF Bacteria) [facility] AND [id number] 16:11:00 Test Item Value Reference Range Interpretation Comments UA RBC (test code = 1 See_Comment [Automa elton message] The UA RBC) system which ge nerated this result transmit elton reference range : <=2. The reference range was not used to interpr et this result as anatoly l/abnormal. [facility] AND [id number] 16:11:00 Test Item Value Reference Range Interpretation Comments UA Glucose (test code = UA Negative mg/dL Glucose) [facility] AND [id number] 16:11:00 Test Item Value Reference Range Interpretation Comments UA Ketones (test code = UA Negative mg/dL Ketones) [facility] AND [id number] 16:11:00 Test Item Value Reference Range Interpretation Comments UA Nitrite (test code Negative (01/15/18 11:11 = UA Nitrite) AM) [facility] AND [id number] 16:11:00 Test Item Value Reference Range Interpretation Comments UA Bili (test code = Negative *NA*(01/15/18 UA Bili) 11:11 AM) [facility] AND [id number] 16:11:00 Test Item Value Reference Range Interpretation Comments UA Blood (test code = Small *ABN*(01/15/18 UA Blood) 11:11 AM) [facility] AND [id number] 16:11:00 Test Item Value Reference Range Interpretation Comments UA WBC (test code = 4 See_Comment [Automa elton message] The UA WBC) system which ge nerated this result transmit elton reference range : <=5. The reference range was not used to interpr et this result as anatoly l/abnormal. [facility] AND [id number] 16:11:00 Test Item Value Reference Range Interpretation Comments UA Leuk Est (test code Large *ABN*(01/15/18 = UA Leuk Est) 11:11 AM) [facility] AND [id number] 16:11:00 Test Item Value Reference Range Interpretation Comments UA Sq Epi (test code = UA Sq Epi) Many /LPF [facility] AND [id number] 16:11:00 Test Item Value Reference Range Interpretation Comments UA pH (test code = UA pH) 5.0 1 5.0-8.0 [facility]ervilleannColonoscopyColonoscopy Notes Date/Time Note Provider Source 2022-03-10 08:47:00-00:00 [facility] [address] [place] [address] Discharge Summary Signed Patient: Lilian Moreno Medical Record#: [id number] : 1950 Acct:[id number] Age/Sex: 71 / F Admit/Reg Date: 03/07/22 Loc: [id number] Room: [address] Report Number: [id number]: Carlos Eduardo AMBRIZ) Harsha COHEN <LaliFebruary - Last Filed: 03/10/22 08:47> DS: Providers Primary Care Provider: Bo Hernandez Attending physician on admission: Carlos Eduardo AMBRIZ) Bryant tong Consults: 03/07/22 19:50 PT Consult [Physical Therapy Consult] Routine Comment: Physician Instructions: Reason For Exam: post op mobilization Weight Bearing Status: Full weight bearing Potential discharge today?: No Fall Risk Score Total: 9 Attending physician on discharge: Carlos Eduardo AMBRIZ) Bryant tong Discharging clinician: Tommy Escalera DS: Diagnosis - Discharge Diagnosis (1) Abdominal pain Status: Acute DS: Summary Date of Admit: 03/07/22 14:45 Date of Encounter: 03/10/22 Date of Discharge: 03/10/22 Hospital course: Pt 71 F who underwent laparo scopic-assisted sigmoid colon resection with primary stapled coloproctostomy for divertic ulitis on 03/07/22. Post operative course was uncomplicated and the patient was discharged in stable condition was c lose follow up. - Time Spent with Patient Total time spent providing and/or coordinating d ischarge services: - Attestation Attestation: I have reviewed all pertinent labor atory findings. Confirm Results Attestation: Yes Results check: Pass Exam Vital signs: Temp Pulse Resp BP Pulse Ox 37.0 C 89 18 103/49 L 96 03/10/22 07:35 03/10/22 07:35 03/10/22 07:35 07:35 03/10/22 07:35 Body Mass Index (BMI): 38.6 Body Habitus: obese DS: Data Did Patient have any Procedures?: Yes Procedures Performed: Laparo scopic-assisted sigmoid colon resection with primary stapled coloproctostomy Does Patient have Pending Results?: No Result Diagrams: 03/10/22 06:55 03/10/22 06:55 Labs on Day of Discharge: Labs on Day of Discharge 03/10/22 03/10/22 06:55 06:55 WBC 12.2 H RBC 3.65 L Hgb 10.4 L Hct 32.7 L MCV 89.60 MCH 28.5 MCHC 31.80 L RDW Coeff of [place] 14.6 H Plt Count 246.0 MPV 10.0 Immature Gran % (Auto) 0.4 Neut % (Auto) 67.5 Lymph % (Auto) 19.3 [place] % (Auto) 10.0 Eos % (Auto) 2.6 Baso % (Auto) 0.2 Neut # (Auto) 8.2 H Lymph # (Auto) 2.35 [place] # (Auto) 1.22 H Eos # (Auto) 0.32 Baso # (Auto) 0.03 Immature Gran # (Auto) 0.05 Absolute Nucleated RBC 0 Nucleated RBC % (auto) 0 Sodium 141.0 Potassium 4.5 Chloride 108 H Carbon Dioxide 28 Anion Gap 5 BUN 13 Creatinine 0.73 Estimated Creat Clear 72.29 Est GFR ( Amer) > 60 Est GFR (Non-Af Amer) > 60 BUN/Creatinine Ratio 18 Glucose 105 Calculated Osmolality 291.6 Calcium 8.4 Quality - Smoking Status Smoking Status: Never smoker <Carlos Eduardo Mcleod) - Last Filed: 03/10/22 10:56 > DS: Providers Primary Care Provider: Bo Hernandez Attending physician on admission: Carlos Eduardo AMBRIZ) Bryant tong Consults: 03/07/22 19:50 PT Consult [Physical Therapy Consult] Routine Comment: Physician Instructions: Reason For Exam: post op mobilization Weight Bearing Status: Full weight bearing Potential discharge today?: No Fall Risk Score Total: 9 Attending physician on discharge: Carlos Eduardo AMBRIZ) Bryant tong Discharging clinician: Carlos Eduardo Mcleod DS: Summary Date of Admit: 03/07/22 14:45 - Time Spent with Patient Total time spent providing and/or coordinating d ischarge services: - Attestation Attestation: I have reviewed all pertinent labor atory findings. Exam Vital signs: Temp Pulse Resp BP Pulse Ox 37.1 C 90 18 129/76 98 03/10/22 10:44 03/10/22 10:44 03/10/22 10:44 10:44 03/10/22 10:44 DS: Data Result Diagrams: 03/10/22 06:55 03/10/22 06:55 Labs on Day of Discharge: Labs on Day of Discharge 03/10/22 03/10/22 06:55 06:55 WBC 12.2 H RBC 3.65 L Hgb 10.4 L Hct 32.7 L MCV 89.60 MCH 28.5 MCHC 31.80 L RDW Coeff of Uh[place] 14.6 H Plt Count 246.0 MPV 10.0 Immature Gran % (Auto) 0.4 Neut % (Auto) 67.5 Lymph % (Auto) 19.3 [place] % (Auto) 10.0 Eos % (Auto) 2.6 Baso % (Auto) 0.2 Neut # (Auto) 8.2 H Lymph # (Auto) 2.35 [place] # (Auto) 1.22 H Eos # (Auto) 0.32 Baso # (Auto) 0.03 Immature Gran # (Auto) 0.05 Absolute Nucleated RBC 0 Nucleated RBC % (auto) 0 Sodium 141.0 Potassium 4.5 Chloride 108 H Carbon Dioxide 28 Anion Gap 5 BUN 13 Creatinine 0.73 Estimated Creat Clear 72.29 Est GFR ( Amer) > 60 Est GFR (Non-Af Amer) > 60 BUN/Creatinine Ratio 18 Glucose 105 Calculated Osmolality 291.6 Calcium 8.4 [facility] Ambulance Medically Nec (Y/N)?: No Discharge Plan - Patient/Caregiver Discharge Instructions Discharge Diagnosis:: Divert iculitis s/p Laparoscopic-assisted sigmoid colon resection Condition: Fair Plan of Treatment: Notify the office for changes Follow-up in the office next week Pain medications E prescribed May shower and bathe normally Remove midline dressing on Monday Fiber supplement daily Activity Restrictions: No lifting greater than 15 lbs for 4 weeks Wound Care Instructions: No bathing or submerging wound for 4 weeks. May shower. Duoderm to stay in place until Monday Dx/Tx/Meds Discussed with:: Patient - Medications Prescriptions: Continued amlodipine 5 mg Tablet 5 mg PO DAILY carvedilol 6.25 mg Tablet 6.25 mg PO BID gabapentin 400 mg Capsule 800 mg PO TID hydrocodone-acetaminophen 5-325 mg Tablet 1 tab PO BID PRN (Reason: Abdominal Pain) omeprazole 40 mg Capsule,Delayed Release(Dr/Ec) 40 mg PO DAILY simvastatin 20 mg Tablet 20 mg PO DAILY zolpidem 10 mg Tablet 10 mg PO QHS - Follow up Plan Follow up with: Bo Hernandez MD [Primary Care Provider] - - Discharge Data Reason For Visit: S/P Laparoscopic-Assisted sigm oid colon resection Primary Care Provider: Bo Hernandez Admit Provider: Carlos Eduardo Mcleod) Attending Provider: Carlos Eduardo Mcleod) Admit Date/Time: 03/07/22 14:45 - Discharge Orders Discharge Orders: Discharge (Routine); Ordered 03/10/22 Ordered By: Tommy Escalera - Discharge Information Print Language: Greenlandic Discharge Comment: Rx called in to pharmacy by p odilia surgeon Dictated By: Tommy Escalera MD, PGY Signed By: Tommy Escalera MD, PGY 03/10/22 085 2 Carlos Eduardo Mcleod) 03/10/22 1054 Carlos Eduardo Mcleod) 03/10/22 1057 DD/ 6 TD/TT: 03/10/22 08 Air Conditioner Installer Helper: JOSÉ MIGUEL cc: [id number]; [id number]; JOSÉ MIGUEL* Tommy Escalera MD, PGY; Carlos Eduardo Mcleod MD; Nd janett Hernandez MD 2022-03-10 00:05:00-00:00 [facility] [address] [place] [address] General Surgery Progress Note Signed Patient: Lilian Moreno Medical Record#: [id number] : 1950 Acct:[id number] Age/Sex: 71 / F Admit/Reg Date: 03/07/22 Loc: [id number] Room: [address] Report Number: [id number]: Carlos Eduardo AMBRIZ) Harsha COHEN <Ginger Ramirez - Last Filed: 03/10/22 00:02> Surgical Subsequent A P Impression: Ms. Moreno is a 71y/o F, P OD2 from a laparoscopic-assisted sigmoid colon resection with primary stapled coloproctostomy for sigmoid diverticulitis. AF, stable vitals. WBC and Hgb appear to be downtrending on AM labs. No new imaging. Likely discharge tomorrow. Plan: Regular diet c/w mutlimodal pain control, may aim to wean morphine and transition her to oral medication in anticipation for likely disc harge today. Suggest course of tylenol #3 for outpatient regimen based on amount of morphine used a nd level of pain. Toradol dosage increased to 30 mg for improved pain control through the night. c/w MIVF. May wean as tolerated. Monitor patient to confirm clinical improvement. Morning CBC, CMP Ginger Ramirez, PGY-1 (1) Abdominal pain Status: Acute Problem Course: unchanged Assessment and Plan: See impression - Attestation Attestation: I have reviewed all pertinent labor atory findings. Confirm Results Attestation: Yes Problem List Attestation Sta tement: I have documented a relevant problem and problem plan for this visit. Resident/AP Confirm Problem: Yes Resident/AP Problem List Check: Pass Subjective Date of Encounter: 03/10/22 Attending Provider: Carlos Eduardo Mcleod Subjective Details: Continued abdominal pain, ho wever has been able to get up and walk out of bed to restroom. She has been able to urinate but unable to stool. Preferred Language: Greenlandic Review of Systems - Cardiovascular Denies chest pain - Gastrointestinal Reports abdominal pain - Musculoskeletal Denies abnormal gait Exam Vital signs: Temp Pulse Resp BP Pulse Ox 36.9 C 93 H 20 106/47 L 96 03/09/22 20:01 03/09/22 20:01 03/09/22 20:01 20:01 03/09/22 20:01 Body Mass Index (BMI): 38.6 Body Habitus: obese General Appearance: alert, c ooperative, looks stated age, well developed, well nourished Head Exam: Present: atraumatic, normocephalic Eye Exam: Present: normal appearance ENT exam: Present: mucous membranes moist - Respiratory Exam Present: normal breath sounds - Cardiovascular Exam Present: normal heart sounds - Abdominal Exam Abdominal: Present: soft, te nder (Severe epigastric tenderness with mild guarding on exam. Right upper quadrant tenderness.), scar/incision (Wounds C/D/I and appropriately TTP) Surgical Results 03/09/22 06:40 03/09/22 06:40 Surgical Quality VTE Risk Level: Moderate VTE Prophylaxis Device: Grad Compression Stockin g Reason VTE Prophylaxis Mechanical Device Not Chito lied: Refused Indwelling-Urethral 16 Urinary Catheter Date of Insertion: 03/07/22 - Patient Rights Advance Directives Information Provided: No Does Pt Have an Advance Directive for End of Lif e Issues?: No Advance Directives on File from prior Visit?: No Does Patient Have a Health Care Proxy?: No Pt has Medical Orders for Life Sustaining Tx For m (MOLST)?: No <Carlos Eduardo Mcleod) - Last Filed: 03/10/22 10:55 > Surgical Subsequent A P - Attending Documentation Confirm Attending Attestation: Yes Attending Attestation Statem ent: {I personally saw the patient and performed a substantive portion of the visit including all aspects of the medica l decision making.} and Clinical Condition Notes: 71-year-old female with hist ory of recurrent diverticulitis status post laparoscopic-assisted sigmoid colon resection post operative day 3. Patient is having bowel movements she is passing gas she is tolerating her pain w ith oral pain medication regimen. She is currently tolerating regular diet. She will be discharged home today in stable condition. She was asked to follow-up in the office next week she was ask ed use a fiber supplement daily. Her pain medications have been E prescribed to her pharmacy. She will notify my office if she has any further difficulties. - Attestation Attestation: I have reviewed all pertinent labor atory findings. Problem List Attestation Sta tement: I have documented a relevant problem and problem plan for this visit. 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: SERAFIN cc: LIT; SERAFIN* Carlos Eduardo Mcleod MD; Ginger Ramirez MD, PGY 2022-03-07 11:23:00-00:00 [facility] [address] [place] [address] General Surg Procedure/OP Note Signed Patient: Lilian Moreno Medical Record#: [id number] : 1950 Acct:[id number] Age/Sex: 71 / F ADM Date: 03/07/22 Loc: [facility] Room: [place] [address] Report Number: [id number] Attending [address]: Carlos Eduardo AMBRIZ) Harsha COHEN General Surgery Operative Note Date of Procedure: 03/07/22 Time of Procedure: 11:23 Pre-operative diagnosis: Sigmoid diverticulitis Procedure Performed: Laparos copic-assisted sigmoid colon resection with primary stapled coloproctostomy Primary Surgeon: Carlos Eduardo Mcleod MD Pneumatic Riveter: Georgiana Linton MD Consent Obtained: obtained Time Out Performed: Yes Anesthesia: general ASA Class: III Detailed Description of Procedure: After informed consent was o btained from the patient she was brought to the operating suite she is placed supine on the operati ng room table. General anesthesia was administered and airway was inserted. The SCD devices we re connected and powered on the patient was administered 2 g of cefoxitin a Mendoza catheter w as inserted under sterile conditions. The patient was placed in low lithotomy position. Her uppe r extremities were tucked and padded in the usual fashion. She was secured to the operating eduardo m table. Her abdomen was prepped and draped in usual sterile fashion. After time-out was performed and incision was made just below the umbilicus measuring approximately 6 cm in length the deep tiss ues were divided using the electrocautery unit. Entry into the abdomen was gained. Some adhesions w ere encountered to the underside of the midline incision these were taken down using the electro cautery unit. A 12 mm trocar was inserted into the patient's right lower quadrant. A 2nd 12 mm trocar was inserted between the incision and the pubic symphysis. The CO2 tubing was connected to the trocar the abdomen was insufflated a hand port was placed over the midline incision. A hand was inserted into the abdomen the colon was identified on the left side. It was mobilized from its at tachments to the left pelvic sidewall. Very dense adhesions were encountered as the mesentery of the colon coursed along the left side of the pelvis. Attachments to the anterior portion of the pelvis were taken down using the electrocautery unit and the Harmonic scalpel. Once everything had been mobilized a very firm area of the sigmoid colon was identified most likely corresponding to the patient's symptoms. Mobilization of the colon was then performed mobilizing it from its attac hments to the retroperitoneum on the left side. The ureter was identified and dissected lat erally away from the mesentery of the sigmoid colon. The inferior mesenteric artery was identi fied it was cleaned circumferentially of investing tissue. Using an Endo-PRASHANT 60 stapler with a w layton load the vessel was transected. A mesorectal excision was then performed at about the level of the sacral promontory extending down into the pelvis approximately 1-2 cm. At this point soft n ormal appearing bowel was encountered. He using EEA sizers the engineering inspection assistant placed the s izers from below and advanced into the level of the dissection site. The 29 and 36 Sizer went up easily. The remainder of the mesentery at this point was controlled using the Harmonic scalpel. A small window was made between the mesentery and the bowel wall. The bowel was transected using a n Endo-PRASHANT 60 stapler with a blue load. The mesorectum was then transected using an Endo-PRASHANT 60 stapler with a white load. The specimen was then exteriorized through the hand port. At a point approximately 3-4 cm proximal to the ligation site of the inferior mesenteric artery t he mesentery of the sigmoid colon was divided using the Harmonic scalpel. The mesentery was d ivided to the level of the bowel wall. A Lorenzo clamp was placed across the descending colon and the bowel was transected. The specimen was removed and sent to the laboratory for further evalu ation. Using a 2-0 Prolene suture a pursestring suture was placed at the end of the cut bowel. Th e 29 EEA stapler was opened the anvil was removed and placed within the cut end of the bowel. The pu rsestring suture was tied into place. The colon was placed back within the abdomen and hand port wa s reconnected and the abdomen was reinsufflated. The 29 EEA stapler was then introduced into the rec blas and advanced to the end of the rectal stump. Care was taken to ensure no other structures c kaci into contact with the stapler. There appeared to be adequate length and minimal tension would be placed on the anastomosis. The spike was extruded from the stapler and connected to the anvil. The stapler was then subsequently closed and fired. The stapler was removed from the patient's r ectum. The colonoscope was introduced into the patient's rectum and advanced to the level of the anastomosis. The anastomosis appeared to be intact the anastomosis was photographed. While applying pressure to the upper portion of the colon air insufflation was performed no evidence of an air leak was seen. Air was removed from the colon as the colonoscope was removed. The surgical si te was irrigated and suctioned dry. The abdomen was deflated the trocars were removed and the hand port was removed. A single sheet of film was placed beneath the fascial edges. F ascia was reapproximated using 2 running 1. PDS sutures. Subcutaneous tissue was irrigated and suc tioned dry. Skin was closed using skin arturo. Patient was transferred to a stretcher h er airway was removed and he was transferred to the recovery room in stable condition. Findings: Significant inflammatory sushant nges involving the rectosigmoid junction with significant adhesions to the underside of the pelvis on that side as well as in the midline. No evidence of abscess was seen within the abdomen some adhe sions from the patient's previous surgery were encountered no evidence of an obstruction was seen. 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
[2022-12-25] MEDS ORDERED: NA CHLORIDE 0.9% 1,000 ML ONE (10:25)
[2022-12-25] MEDS ORDERED: FAMOTIDINE 20 MG/2 ML VIAL IV ONE (10:25)
[2022-12-25 10:38] LABS: Specific Gravity 1.022 (1.005-1.030); Urine Bacteria 20-50 /HPF (<20); Urine Bilirubin NEGATIVE (Negative); Urine Blood Negative (Negative); Urine Clarity Turbid (Clear); Urine Color Light-Yellow (Yellow); Urine Glucose NEGATIVE (Negative); Urine Mucus Slight /HPF (None Seen); Urine Protein TRACE (Negative); Urine Urobilinogen Normal (Normal); Urine pH 5.5 (5.0-7.0)
[2022-12-25 10:43] LABS: Absolute Lymphocytes (CBC) 3.3 K/uL (0.7-4.9); Hematocrit 34.9 % (36.0-45.0); Lymphocytes % 31.8 % (15.3-44.8); MCV 83.1 fL (80-100); MPV 7.3 fL (7.6-11.3)
[2022-12-25] MEDS ORDERED: ONDANSETRON 4 MG/2 ML VIAL ONE (10:49)
[2022-12-25] MEDS ORDERED: FENTANYL CITR 100 MCG/2 ML ONE (10:49)
[2022-12-25] MEDS ORDERED: CEFTRIAXONE 1000 MG/VIAL ONE (10:50)
[2022-12-25 10:52] LABS: Protime INR 0.95
[2022-12-25 11:03] LABS: Albumin 3.5 g/dL (3.4-5.0); Bilirubin Direct 0.1 mg/dL (0-0.2); Bilirubin Indirect, Calculated 0.2 mg/dL (0.2-0.8); Bilirubin Total 0.3 mg/dL (0.2-1.0); Magnesium 1.7 mg/dL (1.6-2.4); Potassium 3.9 mEq/L (3.5-5.1); Protein, Total 7.8 g/dL (6.4-8.2); Troponin High Sensitivity 5.1 pg/mL (<58.9)
--- NOTE | 2022-12-25 11:04 | RAD REPORT ---
EXAM DESCRIPTION: RAD - Chest Single View - 12/25/2022 10:38 am CLINICAL HISTORY: Abdominal distention;Chest pain COMPARISON: <Comparisons> FINDINGS: Lines: None. Lungs: No evidence of edema or pneumonia. Pleural: No significant pleural effusions or pneumothorax. Cardiac: The heart size is within normal limits. Mediastinum: Within normal limits. Bones: No acute fractures. Other: None IMPRESSION: No acute cardiopulmonary disease.
--- NOTE | 2022-12-25 11:20 | RAD REPORT ---
EXAM DESCRIPTION: CTAngio Aorta For Dissection - 12/25/2022 11:03 am CLINICAL HISTORY: ABD PAIN COMPARISON: CTANGIO AORTA FOR DISSECTION dated 08/31/2015 TECHNIQUE: CTA of the chest, abdomen, and pelvis was performed. MIPs of the aorta were created. All CT scans are performed using dose optimization technique as appropriate and may include automated exposure control or mA/KV adjustment according to patient size. FINDINGS: Thorax: Chest Wall: No abnormal mass Lungs: No acute abnormality. Pleura: No effusions or pneumothorax. Arlene/Mediastinum: No lymphadenopathy. Aorta/Pulmonary Arteries: Unremarkable Heart: Normal size. Abdomen/Pelvis: Liver: No acute abnormality or suspicious lesions. Hepatic steatosis Biliary: Cholecystectomy Stomach: No significant focal abnormality. Duodenum: No significant focal abnormality. Pancreas: No significant abnormality. Spleen: No significant abnormality. Adrenal: No suspicious lesions. Kidney/ureter: No hydronephrosis. Nonobstructing stones bilaterally. Retroperitoneum: No retroperitoneal adenopathy. Vascular: No aneurysm. Bowel: Partial colectomy.. Peritoneum: No ascites or free air. Bladder: Grossly unremarkable. Reproductive: No adnexal masses. Hysterectomy Bones: No acute fracture. Other: Laparotomy defect. IMPRESSION: No acute findings within the chest, abdomen, or pelvis. No aortic aneurysm or dissection . Incidental findings as noted above.
[2022-12-25] MEDS ORDERED: CIPROFLOXACIN 400mg IV 400 MG/200 ML BAG IV ONE (11:23)
--- NOTE | 2022-12-25 12:15 | EDPHYS ---
Physician Documentation [facility] Name: Lilian Garland Age: 72 yrs Sex: Female : 1950 Arrival Date: 12/25/2022 Time: 09:49 Bed 6 Private MD: JASPREET Physician Siddhartha Barajas HPI: 12/25 10:59 This 72 yrs old Female presents to ER via Ambulatory with complaints of sushant Stomach and Back pain. 10:59 The patient presents with abdominal pain in the epigastric area, abdominal distention sushant in the upper abdomen, in the lower abdomen. Onset: The symptoms/episode began/occurred 14 day(s) ago. The patient complains of pain in the left mid back and right mid back. The pain does not radiate. Modifying factors: The symptoms are alleviated by nothing. the symptoms are aggravated by nothing. The patient presents with urinary symptoms, dysuria, frequency, hesitancy, urgency. Onset: The symptoms/episode began/occurred 1 month(s) ago. Modifying factors: The symptoms are alleviated by nothing, the symptoms are aggravated by nothing. Severity of symptoms: At their worst the symptoms were mild, moderate, in the emergency department the symptoms are unchanged. The patient is not sexually active. Historical: - Allergies: 10:00 No Known Allergies; nj1 - PMHx: 10:00 Anxiety; Chronic pain; Dementia; Depression; GERD; Gout; Hypertension; Kidney stones; nj1 neuropathy; - PSHx: 10:00 Cornea transplant L eye; Hysterectomy; Cholecystectomy; Appendectomy; nj1 - Immunization history:: Client reports receiving the 2nd dose of the Covid vaccine. - Social history:: Smoking status: Patient denies any tobacco usage or history of. - Family history:: not pertinent. ROS: 10:59 Constitutional: Negative for fever, chills, and weight loss, Eyes: Negative for injury, sushant pain, redness, and discharge, ENT: Negative for injury, pain, and discharge, Neck: Negative for injury, pain, and swelling, Cardiovascular: Negative for chest pain, palpitations, and edema, Respiratory: Negative for shortness of breath, cough, wheezing, and pleuritic chest pain, : Negative for injury, bleeding, discharge, and swelling, MS/Extremity: Negative for injury and deformity, Skin: Negative for injury, rash, and discoloration, Neuro: Negative for headache, weakness, numbness, tingling, and seizure, Psych: Negative for depression, anxiety, suicide ideation, homicidal ideation, and hallucinations, Allergy/Immunology: Negative for hives, rash, and allergies, Endocrine: Negative for neck swelling, polydipsia, polyuria, polyphagia, and marked weight changes, Hematologic/Lymphatic: Negative for swollen nodes, abnormal bleeding, and unusual bruising. 10:59 Abdomen/GI: Positive for abdominal pain, of the posterior aspect of right lateral abdomen, posterior aspect of left lateral abdomen, right upper quadrant and left upper quadrant. Exam: 10:59 Constitutional: This is a well developed, well nourished patient who is awake, alert, sushant and in no acute distress. Head/Face: Normocephalic, atraumatic. Eyes: Pupils equal round and reactive to light, extra-ocular motions intact. Lids and lashes normal. Conjunctiva and sclera are non-icteric and not injected. Cornea within normal limits. Periorbital areas with no swelling, redness, or edema. ENT: Nares patent. No nasal discharge, no septal abnormalities noted. Tympanic membranes are normal and external auditory canals are clear. Oropharynx with no redness, swelling, or masses, exudates, or evidence of obstruction, uvula midline. Mucous membranes moist. Neck: Trachea midline, no thyromegaly or masses palpated, and no cervical lymphadenopathy. Supple, full range of motion without nuchal rigidity, or vertebral point tenderness. No Meningismus. Chest/axilla: Normal chest wall appearance and motion. Nontender with no deformity. No lesions are appreciated. Cardiovascular: Regular rate and rhythm with a normal S1 and S2. No gallops, murmurs, or rubs. Normal PMI, no JVD. No pulse deficits. Respiratory: Lungs have equal breath sounds bilaterally, clear to auscultation and percussion. No rales, rhonchi or wheezes noted. No increased work of breathing, no retractions or nasal flaring. Female : Normal external genitalia. Skin: Warm, dry with normal turgor. Normal color with no rashes, no lesions, and no evidence of cellulitis. MS/ Extremity: Pulses equal, no cyanosis. Neurovascular intact. Full, normal range of motion. Neuro: Awake and alert, GCS 15, oriented to person, place, time, and situation. Cranial nerves II-XII grossly intact. Motor strength 5/5 in all extremities. Sensory grossly intact. Cerebellar exam normal. Normal gait. Psych: Awake, alert, with orientation to person, place and time. Behavior, mood, and affect are within normal limits. 10:59 ECG was reviewed by the Attending Physician. 10:59 Abdomen/GI: Inspection: abdomen appears normal, Bowel sounds: normal, Palpation: mild abdominal tenderness, moderate abdominal tenderness, in the epigastric area, right upper quadrant and left upper quadrant, Liver: no appreciated palpable abnormalities, Hernia: not appreciated. Vital Signs: 09:57 BP 132 / 78; Pulse 102; Resp 18; Temp 98.2; Pulse Ox 98% ; Weight 97.07 kg; Height 5 nj1 ft. 3 in. ; Pain 8/10; 10:53 BP 142 / 78; Pulse 87; Resp 18; Pulse Ox 97% on R/A; ko1 12:09 BP 107 / 67; Pulse 83; Resp 16; Pulse Ox 97% on R/A; ko1 09:57 Body Mass Index 37.91 (97.07 kg, 160.02 cm) nj1 09:57 Pain Scale: Adult nj1 MDM: 09:58 Patient medically screened. sushant 11:09 Differential diagnosis: nephrolithiasis, UTI, diverticulitis, urinary tract infection, sushant diverticulitis, gastritis, sympomatic leaking abdominal aortic aneurysm, non-specific abd pain, pancreatitis, urinary tract infection. Data reviewed: vital signs, nurses notes, EMS record, lab test result(s), EKG, radiologic studies, CT scan, plain films. Consideration of Admission/Observation Patient was admitted/placed on observation. Escalation of care including admission/observation considered. Independent interpretation of the following test(s) in the Emergency Department EKG: See my EKG interpretation above. Test considered but Not performed: Ultrasound no renal usg. Care significantly affected by the following chronic conditions: Hypertension, dementia, depression, chronic pain, gerd. Counseling: I had a detailed discussion with the patient and/or guardian regarding: the historical points, exam findings, and any diagnostic results supporting the discharge/admit diagnosis, the presence of at least one elevated blood pressure reading (>120/80) during this emergency department visit, lab results, radiology results, the need for further work-up and treatment in the hospital. 12/25 10:09 Order name: Basic Metabolic Panel; Complete Time: 11:48 [facility] 12/25 10:09 Order name: CBC with Diff; Complete Time: 10:55 [facility] 12/25 10:09 Order name: LFT's; Complete Time: 11:48 sushant 12/25 10:09 Order name: Magnesium; Complete Time: 11:48 [facility] 12/25 10:09 Order name: NT PRO-BNP; Complete Time: 11:48 [facility] 12/25 10:09 Order name: PT-INR; Complete Time: 10:55 [facility] 12/25 10:09 Order name: Troponin HS; Complete Time: 11:48 [facility] 12/25 10:09 Order name: Lipase; Complete Time: 11:48 [facility] 12/25 10:15 Order name: Urinalysis w/ reflexes; Complete Time: 10:55 bp 12/25 10:43 Order name: Urine Culture EDMS 12/25 10:09 Order name: XRAY Chest (1 view); Complete Time: 11:48 [facility] 12/25 10:09 Order name: CT Aorta for Dissection; Complete Time: 11:48 [facility] 12/25 10:09 Order name: EKG; Complete Time: 10:10 [facility] 12/25 10:09 Order name: Cardiac monitoring; Complete Time: 10:16 [facility] 12/25 10:09 Order name: EKG - Nurse/Tech; Complete Time: 10:17 [facility] 12/25 10:09 Order name: IV Saline Lock; Complete Time: 10:39 [facility] 12/25 10:09 Order name: Labs collected and sent; Complete Time: 10:39 [facility] 12/25 10:09 Order name: O2 Per Protocol; Complete Time: 10:16 [facility] 12/25 10:09 Order name: O2 Sat Monitoring; Complete Time: 10:16 [facility] EC:59 Rate is 93 beats/min. Rhythm is regular. QRS Happy is Normal. IN interval is normal. QRS sushant interval is normal. QT interval is normal. No Q waves. T waves are Normal. No ST changes noted. Clinical impression: NSR w/ Non-specific ST/T Changes and No evidence of ischemia. Interpreted by me. Reviewed by me. Administered Medications: 10:40 Drug: NS 0.9% IV 1000 ml Route: IV; Rate: 125 ml/hr; Site: left antecubital; bp 10:40 Drug: Famotidine IVP 20 mg Route: IVP; Site: left antecubital; bp 10:45 Drug: Rocephin IV 1 grams Route: IV; Rate: per protocol; Site: left antecubital; ko1 10:45 Drug: fentaNYL (PF) IVP 25 mcg Route: IVP; Site: left antecubital; ko1 10:45 Drug: Ondansetron IVP 4 mg Route: IVP; Site: left antecubital; ko1 11:19 Drug: Ciprofloxacin IVPB 400 mg Volume: 200 ml; Route: IVPB; Infused Over: 60 mins; ko1 Site: left antecubital; 12:08 Drug: fentaNYL (PF) IVP 25 mcg Route: IVP; Site: left antecubital; ko1 12:20 Drug: Trimethoprim-Sulfamethoxazole PO (160 mg-800 mg (DS) 1 tablet Route: PO; ko1 Disposition Summary: 12/25/22 12:14 Discharge Ordered Location: Home sushant Problem: new sushant Symptoms: have improved sushant Condition: Stable sushant Diagnosis - UTI/ Urinary tract infection, site not specified sushant - Dysuria sushant Followup: sushant - With: Private Physician - When: 2 - 3 days - Reason: Recheck today's complaints, Continuance of care, Re-evaluation by your physician Followup: sushant - With: - When: 2 - 3 days - Reason: Recheck today's complaints, Continuance of care, Re-evaluation by your physician Discharge Instructions: - Discharge Summary Sheet sushant - Dysuria sushant - Urinary Tract Infection, Adult sushant - Urinary Tract Infection, Adult, [id number] - Antibiotic Medicine, Adult [facility] Forms: - Medication Reconciliation Form [facility] - Thank You Letter [facility] - Antibiotic Education [facility] - Prescription Opioid Use [facility] Prescriptions: - Cipro 250 mg Oral Tablet - take 1 tablet by ORAL route every 12 hours; 14 tablet; Refills: 0, Product [facility] Selection Permitted - Pyridium 200 mg Oral Tablet - take 1 tablet by ORAL route every 8 hours for 3 days; 9 tablet; Refills: 0, [facility] Product Selection Permitted - Bactrim DS 800-160 mg Oral Tablet - take 1 tablet by ORAL route every 12 hours for 7 days; 14 tablet; Refills: 0, [facility] Product Selection Permitted Signatures: Dispatcher [employer] EDSiddhartha Cunningham MD MD cha Peltier, Brian, RN RN Mary Lind RN RN ko1 Genesis Campbell, RN RN nj1
--- NOTE | 2022-12-25 12:15 | ER ---
Nurse's Notes [facility] Name: Lilian Garland Age: 72 yrs Sex: Female : 1950 Arrival Date: 12/25/2022 Time: 09:49 Bed 6 Private MD: Diagnosis: UTI/ Urinary tract infection, site not specified;Dysuria Presentation: 12/25 09:57 Chief complaint: Patient states: Abdominal pain/swelling and low back pain, concerned nj1 it could be kidney stones because she has had them in the past. Going on for several months, getting worse. Burning sensation when urinating sometimes. Coronavirus screen: Vaccine status: Patient reports receiving the 2nd dose of the covid vaccine. Ebola Screen: Patient denies travel to an Ebola-affected area in the 21 days before illness onset. Initial Sepsis Screen: Does the patient meet any 2 criteria? HR > 90 bpm. No. Patient's initial sepsis screen is negative. Does the patient have a suspected source of infection? No. Patient's initial sepsis screen is negative. Risk Assessment: Do you want to hurt yourself or someone else? Patient reports no desire to harm self or others. Onset of symptoms was August 31, 2022. 09:57 Method Of Arrival: Ambulatory [facility] 09:57 Acuity: JI 3 nj1 Triage Assessment: 10:00 General: Appears uncomfortable, obese, Behavior is cooperative, appropriate for age, bp anxious. Pain: Complains of pain in back and abdomen. EENT: No deficits noted. Neuro: No deficits noted. Cardiovascular: No deficits noted. Respiratory: No deficits noted. GI: Reports lower abdominal pain, upper abdominal pain. : Reports pain in lower back. Derm: No deficits noted. Musculoskeletal: No deficits noted. Historical: - Allergies: 10:00 No Known Allergies; nj1 - PMHx: 10:00 Anxiety; Chronic pain; Dementia; Depression; GERD; Gout; Hypertension; Kidney stones; nj1 neuropathy; - PSHx: 10:00 Cornea transplant L eye; Hysterectomy; Cholecystectomy; Appendectomy; nj1 - Immunization history:: Client reports receiving the 2nd dose of the Covid vaccine. - Social history:: Smoking status: Patient denies any tobacco usage or history of. - Family history:: not pertinent. Screenin:00 [facility] ED Fall Risk Assessment (Adult) History of falling in the last 3 months, bp including since admission No falls in past 3 months (0 pts). Abuse screen: Denies threats or abuse. Denies injuries from another. Nutritional screening: No deficits noted. Tuberculosis screening: No symptoms or risk factors identified. Assessment: 10:00 General: SEE TRIAGE NOTE. bp Vital Signs: 09:57 BP 132 / 78; Pulse 102; Resp 18; Temp 98.2; Pulse Ox 98% ; Weight 97.07 kg; Height 5 [facility] ft. 3 in. ; Pain 8/10; 10:53 BP 142 / 78; Pulse 87; Resp 18; Pulse Ox 97% on R/A; ko1 12:09 BP 107 / 67; Pulse 83; Resp 16; Pulse Ox 97% on R/A; ko1 09:57 Body Mass Index 37.91 (97.07 kg, 160.02 cm) [facility] 09:57 Pain Scale: Adult [facility] ED Course: 09:52 Patient arrived in ED. ts1 09:58 Siddhartha Barajas MD is Attending Physician. sushant 10:00 Triage completed. nj1 10:00 Patient has correct armband on for positive identification. Placed in gown. Bed in low bp position. Call light in reach. Side rails up X2. 10:02 Arm band placed on left wrist. nj1 10:14 Pete Castro, RN is Primary Nurse. bp 10:25 Missed attempt(s): 20 gauge in right antecubital area. bc6 10:39 Lipase Sent. bc6 10:39 Basic Metabolic Panel Sent. bc6 10:39 Magnesium Sent. bc6 10:39 CBC with Diff Sent. bc6 10:39 LFT's Sent. bc6 10:39 NT PRO-BNP Sent. bc6 10:39 PT-INR Sent. bc6 10:39 Troponin HS Sent. bc6 10:40 XRAY Chest (1 view) In Process Unspecified. EDMS 10:40 Inserted saline lock: 20 gauge in left antecubital area, using aseptic technique. bc6 10:45 Urine Culture Sent. ko1 11:05 CT Aorta for Dissection In Process Unspecified. EDMS 12:14 Mickey Alba MD is Referral Physician. sushant 12:21 No provider procedures requiring assistance completed. IV discontinued, intact, ko1 bleeding controlled, No redness/swelling at site. Pressure dressing applied. Administered Medications: 10:40 Drug: NS 0.9% IV 1000 ml Route: IV; Rate: 125 ml/hr; Site: left antecubital; bp 10:40 Drug: Famotidine IVP 20 mg Route: IVP; Site: left antecubital; bp 10:45 Drug: Rocephin IV 1 grams Route: IV; Rate: per protocol; Site: left antecubital; ko1 10:45 Drug: fentaNYL (PF) IVP 25 mcg Route: IVP; Site: left antecubital; ko1 10:45 Drug: Ondansetron IVP 4 mg Route: IVP; Site: left antecubital; ko1 11:19 Drug: Ciprofloxacin IVPB 400 mg Volume: 200 ml; Route: IVPB; Infused Over: 60 mins; ko1 Site: left antecubital; 12:08 Drug: fentaNYL (PF) IVP 25 mcg Route: IVP; Site: left antecubital; ko1 12:20 Drug: Trimethoprim-Sulfamethoxazole PO (160 mg-800 mg (DS) 1 tablet Route: PO; ko1 Medication: 10:00 VIS not applicable for this client. bp Outcome: 12:14 Discharge ordered by . sushant 12:21 Discharged to home ambulatory, with family. ko1 12:21 Condition: stable 12:21 Discharge instructions given to patient, Instructed on discharge instructions, follow up and referral plans. medication usage, Demonstrated understanding of instructions, follow-up care, medications, Prescriptions given X 3. 12:29 Patient left the ED. ko1 Signatures: Dispatcher [employer] EDRI Siddhartha Barajas MD MD cha Peltier, Brian, RN RN bp Mary Pedroza RN RN ko1 Meena Hu 6 Genesis Campbell RN RN nj1 Kendal Pedro PAS PAS ts1
[2022-12-25] MEDS ORDERED: SMZ./TMP. 800/160 MG TABLET ONE (12:23)
[2022-12-25 12:44] VITALS: TEMP 98.2
[2022-12-25 12:49] VITALS: O2SAT 97
[2022-12-25 12:55] VITALS: BP 107/67
--- NOTE | 2022-12-28 07:16 | EKG ---
Test Date: 2022-12-25 Test Time: 10:18:18 Outside Physical Damage Appraiser: HENRY MEASUREMENT RESULTS: Intervals: Rate: 93 ME: 170 QRSD: 106 QT: 360 QTc: 447 [place]: P: 61 ME: 170 QRS: -66 T: 73 INTERPRETIVE STATEMENTS: Sinus rhythm with occasional premature ventricular complexes Left axis deviation Abnormal ECG Compared to ECG 04/05/2021 16:13:44 Ventricular premature complex(es) now present Left-axis deviation now present Atrial premature complex(es) no longer present Right superior axis no longer present Electronically Signed On 12-28-22 07:07:49 CDT by Crispin Sood
== END 2022-12-25 12:29 | disposition home or self-care (01) ==
LOC: ER 09:49
DX: N39.0 Urinary tract infection, site not specified (principal); Z87.442 Personal history of urinary calculi; I10 Essential (primary) hypertension; F03.90 Unspecified dementia, unspecified severity, without behavioral disturbance, psychotic disturbance, mood disturbance, and anxiety
CPT/HCPCS: 93005; 87088; 85025; 81001; 87086; 80048; 36415; 83735; 85610; 82565; 80076; 87077; 87186; 84484; 83690; 83880; 71275; 74175; 71045; 96375; 96374; 99284; Q9967; J3010; J2405; J0744; J7030; J0696

== ENCOUNTER 2024-11-13 07:10 | Day surgery (SDC) | payer OTHER ==
[2024-11-12 16:08] LABS: Anion Gap 9.7 mEq/L (5.0-15.0); Potassium 3.7 mEq/L (3.5-5.1)
[2024-11-12 16:31] LABS: Absolute Basophils 0.1 K/uL (0-0.5); Absolute Eosinophils 0.2 K/uL (0-0.5); Absolute Lymphocytes (CBC) 3.5 K/uL (0.7-4.9); Absolute Monocytes 1.1 K/uL (0.1-1.3); Absolute Neutrophil 7.3 K/uL (1.8-8.0); Basophils % 0.4 % (0-1.3); Eosinophils % 1.9 % (0-4.4); Hematocrit 34.3 % (36.0-45.0); Hemoglobin 11.8 g/dL (12.0-15.0); Lymphocytes % 28.8 % (15.3-44.8); MCH 28.6 pg (27.0-35.0); MCHC 34.4 g/dL (32.0-36.0); MCV 83.1 fL (80-100); MPV 7.6 fL (7.6-11.3); Monocytes % 8.9 % (3.3-12.3); Nucleated Red Blood Cells % 0.1 % (0-0); Platelets 284 thou/uL (152-406); RBC Red Blood Cell Count 4.13 M/uL (3.86-4.86); Red Cell Distribution Width 15.7 % (12.1-15.2)
[2024-11-13] MEDS: Ringers Lactate 1,000 ML IV ONE (08:10)
[2024-11-13] MEDS ORDERED: SUCCINYLCHOLINE 20 MG/ML (10 ML) IV ONE (10:14)
[2024-11-13] MEDS ORDERED: propofoL 200 MG/20 ML VIAL IV ONE ×2 (10:14)
[2024-11-13] MEDS ORDERED: LIDOCAINE 1% MPF 5 ML VIAL ONE (10:15)
[2024-11-13 13:34] VITALS: BP 133/80; TEMP 98.7; O2SAT 95
== END 2024-11-13 11:40 | disposition home or self-care (01) ==
LOC: OR 07:10
PROVIDERS: ATTEND Internal Medicine Gastroenterology
PROC: 0DJD8ZZ Inspection of Lower Intestinal Tract, Via Natural or Artificial Opening Endoscopic (ICD-10-PCS; principal; 2024-11-13 09:15)
PROC: 0DB68ZX Excision of Stomach, Via Natural or Artificial Opening Endoscopic, Diagnostic (ICD-10-PCS; 2024-11-13 09:15)
DX: R19.4 Change in bowel habit (principal); R14.1 Gas pain; R10.32 Left lower quadrant pain; R63.4 Abnormal weight loss; K59.00 Constipation, unspecified; K57.30 Diverticulosis of large intestine without perforation or abscess without bleeding; K64.8 Other hemorrhoids; R10.13 Epigastric pain; R14.0 Abdominal distension (gaseous); K21.9 Gastro-esophageal reflux disease without esophagitis; K44.9 Diaphragmatic hernia without obstruction or gangrene; K29.60 Other gastritis without bleeding; K29.50 Unspecified chronic gastritis without bleeding
CPT/HCPCS: 36415; 80048; 85025; 88305; 88312; 93005; J2003; J2704; J7120

== ENCOUNTER 2025-05-21 08:16 | Day surgery (SDC) | payer OTHER ==
[2025-05-21 08:32] LABS: Absolute Lymphocytes (CBC) 1.8 K/uL (0.7-4.9); Hematocrit 35.9 % (36.0-45.0); Hemoglobin 12.2 g/dL (12.0-15.0); MCH 28.0 pg (27.0-35.0); MCHC 34.0 g/dL (32.0-36.0); MCV 82.4 fL (80-100); MPV 7.9 fL (7.6-11.3); Nucleated RBC Absolute Count 0.0 (0-0); Nucleated Red Blood Cells % 0.0 % (0-0); RBC Red Blood Cell Count 4.36 M/uL (3.86-4.86); White Blood Count 9.70 thou/uL (4.3-10.9)
[2025-05-21 08:48] LABS: Anion Gap 9.6 mEq/L (5.0-15.0); BUN Blood Urea Nitrogen 12.0 mg/dL (7-18); Glucose Level 109.0 mg/dL (74-106); Potassium 3.6 mEq/L (3.5-5.1)
[2025-05-21] MEDS ORDERED: EPHEDRINE SULF 50 MG/ML VIAL ONE (10:08)
[2025-05-21] MEDS ORDERED: FENTANYL CITR 100 MCG/2 ML ONE (10:30)
[2025-05-21] MEDS: Ringers Lactate 1,000 ML IV ONE (10:32)
[2025-05-21 11:25] VITALS: O2SAT 96
[2025-05-21 13:54] VITALS: BP 110/58; TEMP 98.2
== END 2025-05-21 11:57 | disposition home or self-care (01) ==
LOC: OR 08:16
PROVIDERS: ATTEND Internal Medicine Gastroenterology
PROC: 0DB68ZX Excision of Stomach, Via Natural or Artificial Opening Endoscopic, Diagnostic (ICD-10-PCS; principal; 2025-05-21 09:45)
DX: R10.12 Left upper quadrant pain (principal); D50.9 Iron deficiency anemia, unspecified; R63.4 Abnormal weight loss; R10.13 Epigastric pain; R14.0 Abdominal distension (gaseous); R11.2 Nausea with vomiting, unspecified; K29.50 Unspecified chronic gastritis without bleeding
CPT/HCPCS: 93005; 85025; 80048; 36415; 88312; 88305; 43239; J2704; J3010; J7120